=== PATIENT | female | born 1935 | race Caucasian/White ===

== ENCOUNTER 2016-02-22 13:37 | Inpatient (IN) | payer OTHER ==
[~2016-02-22] VITALS: Ht 152.4 cm; Wt 58.0 kg
[~2016-02-22 13:37] MED LIST: ASPI81TA28 PO; CALC500C70 PO; CRG125 PO; GABA1CAP4 PO; IPRA1AER2 INH; IPRASOL4 INH; ISOS-11 PO; LOVA40TA3 PO; LSX40 PO; PROB1TAB16 PO; PRT/40 PO; VALS-56 PO
--- NOTE | 2016-02-22 14:39 | DIAGNOSTIC IMAGING REPORT ---
CT SCAN OF THE BRAIN WITHOUT IV CONTRAST CLINICAL HISTORY: Syncope. COMPARISON STUDY: CT of the brain dated 11/20/2014. TECHNIQUE: Unenhanced axial CT scan of the brain is performed from the vertex to the skull base. The skull base was scanned twice due to motion artifact. CT DOSE: 1294.76 mGycm FINDINGS: Brain parenchyma: There are age-related involutional changes noting moderate subcortical and periventricular microangiopathic change. Left cerebellar encephalomalacia is unchanged and consistent with a remote insult. There is no hemorrhage, mass effect, or evidence of acute territorial ischemia by CT criteria. Colvin-white matter is preserved. Mineralization is noted in the basal ganglia. No extra-axial fluid collection is seen. Ventricles, sulci, cisterns: Prominent secondary to involutional change. Intracranial vasculature: There is atherosclerotic calcification of the cavernous carotid intervertebral arteries. Calvarium: The skeletal structures are osteopenic. No depressed calvarial fracture is seen. A right parietal silvano hole is noted. Sinuses and mastoids: The visualized paranasal sinuses are clear. The mastoid air cells are well pneumatized. Orbits: The bony orbits are grossly intact. There are bilateral ocular lens implants. IMPRESSION: Senescent and chronic changes as above. There is no hemorrhage, mass effect, or evidence of acute territorial ischemia by CT criteria. Electronically signed by: Christos Ochoa M.D. 02/22/2016 2:37 PM Dictated Date/Time: 02/22/2016 2:34 PM
[2016-02-22] MEDS ORDERED: GABA1CAP5 PO (14:44)
[2016-02-22] MEDS ORDERED: CALC600T PO (14:44)
[2016-02-22] MEDS ORDERED: PRED10TA PO (14:45)
--- NOTE | 2016-02-22 15:09 | DIAGNOSTIC IMAGING REPORT ---
CHEST 2 VIEWS ROUTINE CLINICAL HISTORY: Syncope, fatigue. COMPARISON STUDY: 06/03/2015 FINDINGS: There are postsurgical changes of a midline sternotomy and valvular replacement. There is a left subclavian dual-chamber central venous pacemaker present. There is no failure. There is no focal pulmonary consolidation. Slight prominence of markings the left lung base, likely are secondary to either atelectasis or a fat pad.[ IMPRESSION: No active disease in the chest. Electronically signed by: Lawson Troncoso M.D. 02/22/2016 3:08 PM Dictated Date/Time: 02/22/2016 3:07 PM
[2016-02-22 15:19] LABS: BASO % 0.1 %; BASO ABS # 0.01 K/uL (0-0.2); COMPLETE YES; EOS % 0.1 %; HEMATOCRIT 42.5 % (37-47); LYMPH % 16.5 %; LYMPH ABS # 2.39 K/uL (1.2-3.4); MEAN CELL VOLUME 84.5 fL (80-100); MEAN CORPUSCULAR HEMOGLOBIN 27.8 pg (25-34); MEAN CORPUSCULAR HGB CONC 32.9 g/dl (32-36); MEAN PLATELET VOLUME 11.1 fL (7.4-10.4); MONO % 2.9 %; NEUT % 79.4 %; PLATELET COUNT 206 K/uL (130-400); RED BLOOD COUNT 5.03 M/uL (4.2-5.4); WHITE BLOOD COUNT 14.49 K/uL (4.8-10.8)
--- NOTE | 2016-02-22 15:20 | EMERGENCY ROOM VISIT NOTE ---
History Report prepared by Chaim: Shelli Olson Under the Supervision of: Dr. Ilan Zhang M.D. First contact with patient: 13:54 Chief Complaint: NEURO SYMPTOMS Stated Complaint: SYNCOPE Nursing Triage Summary: patient to ed via ALS from home for "unresponsive episode" per family. Patient states, "I was going upstairs to go to the bathroom after lunch, and then I was going back downstairs, next thing I know I was waking up in my stair chair, with my family all around me telling me what to do." Patient AAO at time of triage, denies complaints states "oh, I just fell asleep". Patient has left sided weakness from previous CVA "several years ago. 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 Currently, the patient denies being in any discomfort, and she denies complaints other than feeling tired at this time. The patient is unsure of the exact events leading up to the episode today as she does not recall, but per nursing notes, family reports that the patient had passed out while in her stair chair lift just prior to arrival. Patient did not fall out of her chair or suffer injuries secondary to the episode. The patient mentions that she was recently placed on antibiotics as she was diagnosed with pneumonia last week, and though she feels improved from initial onset, she still feels tired. She does note intermittent chills, but she denies fevers or having increased weakness above baseline. She also denies sore throat , worsening cough, chest pain, abdominal pain, nausea, vomiting, diarrhea, urinary symptoms or other acute complaints. 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 Review of Systems All systems have been listed, reviewed, and are negative other than those previously mentioned. Please see Additional Medical History Sheet. Past Medical & Surgical Medical Problems: (1) AORTOCORONARY BYPASS (2) ATRIAL FIBRILLATION (3) CHRONIC KIDNEY DISEASE, STAGE III (MODERATE) (4) CHRONIC SYSTOLIC HRT FAILURE (5) CORON ATHEROSCLER NOS TYPE VESSEL, IGIUGIG OR GRAFT (6) CVA (7) Implantation of cardiac pacemaker (8) Lower GI bleed (9) PNEUMONIA, ORGANISM NOS (10) Seizure (11) Subdural hematoma Family History Heart disease Social History Smoking Status: Never Smoker Alcohol Use: none Drug Use: none Marital Status: Housing Status: lives with family Occupation Status: retired Current/Historical Medications Scheduled Aspirin (Aspirin Ec), 81 MG PO DAILY Calcium Carbonate (Calcium 600), 1 TAB PO BID Carvedilol (Carvedilol), 12.5 MG PO BID Furosemide (Furosemide), 40 MG PO DAILY Gabapentin (Neurontin), 400 MG PO TID Isosorbide Mononitrate (Isosorbide Mononitrate ER), 30 MG PO DAILY Lovastatin (Mevacor), 40 MG PO DAILY Pantoprazole (Pantoprazole Sodium), 40 MG PO DAILY Prednisone (Prednisone), 10 MG PO DAILY Valsartan (Valsartan), 40 MG PO DAILY Scheduled PRN Ipratropium-Albuterol (Combivent Respimat), 1 PUFF INH for SOB/Wheezing Ipratropium-Albuterol (Duoneb), 1 TREATMENT INH Q4H PRN for SOB/Wheezing Allergies Coded Allergies: Cephalosporins (Verified Allergy, Severe, TONGUE SWELLING WITH KEFLEX, 02/21) Butalbital (Verified Allergy, Intermediate, SHORTNESS OF BREATH, 02/22/16) Levetiracetam (Verified Allergy, Mild, RASH, 02/22/16) Penicillins (Verified Allergy, Unknown, HIVES, SOB, 02/22/16) Sulfa Antibiotics (Verified Allergy, Unknown, "SULFA DRUGS" - UNKNOWN, 02/21) Tamsulosin (Verified Allergy, Unknown, SHORTNESS OF BREATH, 02/22/16) Physical Exam Vital Signs Date Time Temp Pulse Resp B/P Pulse Ox O2 Delivery O2 Flow Rate FiO2 02/22/16 17:16 63 127/65 65 117/76 66 83/43 02/22/16 15:56 62 20 122/62 93 Room Air 02/22/16 13:45 72 02/22/16 13:41 36.6 67 18 142/86 94 Room Air Physical Exam GENERAL: Patient awake, alert, oriented x 3. Patient follows commands. Patient does not appear toxic. Patient is adequately hydrated and well- nourished. SKIN: No erythema, pallor, cyanosis or rash HEENT: Normal head, pupils equal, reactive to light and accommodation. Ears normal. Oral cavity and posterior pharynx appear normal. Neck: Without adenopathy, no neck vein distention. LUNGS: Clear to auscultation. No wheezes, no rales, no rhonchi. HEART: Pace maker left upper chest. Midline sternotomy scar. No murmurs. No gallops. No rubs ABDOMEN: Oblique RUQ scar. No masses, no rebound, no hepatomegaly or splenomegaly. EXTREMITIES: No signs of trauma. No pedal or pretibial edema. No calf or thigh tenderness. NEUROLOGIC: Cranial nerves II-XII within normal limits. No gross motor sensory function deficits. Medical Decision & Procedures ER Provider Diagnostic Interpretation: X ray results are stated below per my interpretation and the radiologist's interpretation. CT results are interpretations by the radiologist and per my review. CHEST 2 VIEWS ROUTINE CLINICAL HISTORY: Syncope, fatigue. COMPARISON STUDY: 06/03/2015 FINDINGS: There are postsurgical changes of a midline sternotomy and valvular replacement. There is a left subclavian dual-chamber central venous pacemaker present. There is no failure. There is no focal pulmonary consolidation. Slight prominence of markings the left lung base, likely are secondary to either atelectasis or a fat pad.[ IMPRESSION: No active disease in the chest. Electronically signed by: Lawson Troncoso M.D. 02/22/2016 3:08 PM Dictated Date/Time: 02/22/2016 3:[address] SCAN OF THE BRAIN WITHOUT IV CONTRAST CLINICAL HISTORY: Syncope. COMPARISON STUDY: CT of the brain dated 11/20/2014. TECHNIQUE: Unenhanced axial CT scan of the brain is performed from the vertex to the skull base. The skull base was scanned twice due to motion artifact. CT DOSE: 1294.76 mGycm FINDINGS: Brain parenchyma: There are age-related involutional changes noting moderate subcortical and periventricular microangiopathic change. Left cerebellar encephalomalacia is unchanged and consistent with a remote insult. There is no hemorrhage, mass effect, or evidence of acute territorial ischemia by CT criteria. Colvin-white matter is preserved. Mineralization is noted in the basal ganglia. No extra-axial fluid collection is seen. Ventricles, sulci, cisterns: Prominent secondary to involutional change. Intracranial vasculature: There is atherosclerotic calcification of the cavernous carotid intervertebral arteries. Calvarium: The skeletal structures are osteopenic. No depressed calvarial fracture is seen. A right parietal silvano hole is noted. Sinuses and mastoids: The visualized paranasal sinuses are clear. The mastoid air cells are well pneumatized. Orbits: The bony orbits are grossly intact. There are bilateral ocular lens implants. IMPRESSION: Senescent and chronic changes as above. There is no hemorrhage, mass effect, or evidence of acute territorial ischemia by CT criteria. Electronically signed by: Christos Ochoa M.D. 02/22/2016 2:37 PM Dictated Date/Time: 02/22/2016 2:34 PM Laboratory Results 02/22/16 15:00 Red Blood Count 5.03, Mean Corpuscular Volume 84.5, Mean Corpuscular Hemoglobin 27.8, Mean Corpuscular Hemoglobin Concent 32.9, Mean Platelet Volume 11.1, Neutrophils (%) (Auto) 79.4, Lymphocytes (%) (Auto) 16.5, Monocytes (%) (Auto) 2.9, Eosinophils (%) (Auto) 0.1, Basophils (%) (Auto) 0.1, Neutrophils # (Auto) 11.52, Lymphocytes # (Auto) 2.39, Monocytes # (Auto) 0.42, Eosinophils # (Auto) 0.01, Basophils # (Auto) 0.01 02/22/16 15:00 Test 02/22/16 15:00 White Blood Count 14.49 K/uL (4.8-10.8) Red Blood Count 5.03 M/uL (4.2-5.4) Hemoglobin 14.0 g/dL (12.0-16.0) Hematocrit 42.5 % (37-47) Mean Corpuscular Volume 84.5 fL (80-100) Mean Corpuscular Hemoglobin 27.8 pg (25-34) Mean Corpuscular Hemoglobin Concent 32.9 g/dl (32-36) Platelet Count 206 K/uL (130-400) Mean Platelet Volume 11.1 fL (7.4-10.4) Neutrophils (%) (Auto) 79.4 % Lymphocytes (%) (Auto) 16.5 % Monocytes (%) (Auto) 2.9 % Eosinophils (%) (Auto) 0.1 % Basophils (%) (Auto) 0.1 % Neutrophils # (Auto) 11.52 K/uL (1.4-6.5) Lymphocytes # (Auto) 2.39 K/uL (1.2-3.4) Monocytes # (Auto) 0.42 K/uL (0.11-0.59) Eosinophils # (Auto) 0.01 K/uL (0-0.5) Basophils # (Auto) 0.01 K/uL (0-0.2) RDW Standard Deviation 47.4 fL (36.4-46.3) RDW Coefficient of Variation 15.5 % (11.5-14.5) Immature Granulocyte % (Auto) 1.0 % Immature Granulocyte # (Auto) 0.14 K/uL (0.00-0.02) Anion Gap 11.0 mmol/L (3-11) Est Creatinine Clear Calc Drug Dose 20.3 ml/min Estimated GFR () 32.0 Estimated GFR (Non- 27.6 BUN/Creatinine Ratio 24.2 (10-20) Calcium Level 8.9 mg/dl (8.5-10.1) Troponin I 0.037 ng/ml (0-0.045) Laboratory results as stated above per my review. ECG Indication: syncope Rate (beats per minute): 62 Rhythm: other (atrial paced) Findings: nonspecific-ST abn, no ectopy ED Course 1355: Past medical records reviewed. The patient was evaluated in room C1. A complete history and physical examination was performed. 1445: Patient was reevaluated at this time and was doing well. The results of her CT are pending. 1640: Upon reevaluation, patient appeared to be resting comfortably. I updated her on the results of her radiology reports and lab tests. Orthostatic vital signs will be taken, and she will be put through an ambulatory trial. 1720: Patient was reevaluated at this time. She was able to walk a short distance on her own, however, her orthostatic vital signs tested positive. Family was now in the room and I updated them on the results of her radiology reports and lab tests. The hospitalist will be contacted. 173: NSS 1,000 ml @ 300 mls/hr IV was ordered. 1744: After discussion with Dr. Shea, the patient will continue to be evaluated by the [facility] [place] [place] for further management. Patient verbalized her understanding and agreement with this treatment plan. Medical Decision Nurses notes reviewed. Medical history sheet reviewed. Differential diagnosis includes but is not limited to: CVA, TIA, cardiac arrhythmia, pneumonia, metabolic disorder, and anemia. Patient a recent viral illness and family is concerned that she is dehydrated. She has been falling at home. She apparently fell asleep on her stair chair at home. The patient has no urinary symptoms. She is not coughing. She denies current fever. Multiple labs, EKG and imaging were obtained. Please see above. The patient's white count is elevated along with her hemoglobin and hematocrit which may be related to her dehydration. The rest of the patient's labs are not remarkable but the patient was orthostatic. She is also unsteady on her feet. I discussed at length with the patient and family members. I believe the patient should be stay in the hospital until she is better hydrated. She was given IV fluids here. Most likely she became dehydrated during her viral illness which resulted in her falls and unsteadiness. Consults Time Called: 1724 Consulting Physician: Dr. Shea - [facility] [place] [place] Returned Call: [phone] Discussed the patient's case. She will continue to be evaluated by the [facility] [place] [place] hospitalist for further management. Impression Primary Impression: Orthostatic hypotension Additional Impression: Dehydration Scribe Attestation The scribe's documentation has been prepared under my direction and personally reviewed by me in its entirety. I confirm that the note above accurately reflects all work, treatment, procedures, and medical decision making performed by me. Departure Information Dispostion Being Evaluated By Hospitalist ([facility] [place] [place]) Referrals Crystal Mcguire C.R.N.P (PCP)
[2016-02-22 15:37] LABS: BUN/CREATININE RATIO 24.2 (10-20); CALCIUM 8.9 mg/dl (8.5-10.1); CREATININE 1.7 mg/dl (0.60-1.20); POTASSIUM 3.7 mmol/L (3.5-5.1)
[2016-02-22] MEDS ORDERED: SODIUM CHLORIDE 0.9% 1000ML 1,000 ML IV SCH (17:30)
[2016-02-22] MEDS ORDERED: ONDANSETRON INJ 2 MG/ML 2 ML VIAL IV PRN (18:30)
[2016-02-22] MEDS ORDERED: ACETAMINOPHEN 325 MG TAB PO PRN (18:30)
[2016-02-22 19:10] VITALS: BP_SYST 109; BP_SYST 99; BP_DIAS 64; BP_DIAS 68; PULSE 61; TEMP 36.5; O2SAT 94
[2016-02-22 19:17] LABS: INR 1.1 (0.9-1.1); PARTIAL THROMBOPLASTIN RATIO 0.9; PROTHROMBIN TIME (PATIENT) 11.6 SECONDS (9.0-12.0)
--- NOTE | 2016-02-22 19:43 | History and Physical ---
History & Physical Date & Time of Service: Feb 22, 2016 at 19:26 Chief Complaint: Syncope Primary Care Physician: Crystal Mcguire C.R.N.P History of Present Illness Source: patient, family Pt is an 80 year old female arriving by ambulance from home who presents to the ER for evaluation after suffering a possible syncopal episode just prior to arrival. Currently, the patient denies being in any discomfort, and she denies complaints other than feeling tired at this time. The patient is unsure of the exact events leading up to the episode today as she does not recall, but per nursing notes, family reports that the patient had passed out while in her stair chair lift just prior to arrival. Patient did not fall out of her chair or suffer injuries secondary to the episode. The patient mentions that she was recently placed on doxycycline in which she has finished a course as she was diagnosed with pneumonia last week, and though she feels improved from initial onset, she still feels tired. She does note intermittent chills, but she denies fevers or having increased weakness above baseline. She also denies sore throat, worsening cough, chest pain, abdominal pain, nausea , vomiting, diarrhea, urinary symptoms or other acute complaints. Past Medical/Surgical History Medical Problems: (1) AORTOCORONARY BYPASS Status: Resolved (2) ATRIAL FIBRILLATION Status: Chronic (3) CHRONIC KIDNEY DISEASE, STAGE III (MODERATE) Status: Chronic (4) CHRONIC SYSTOLIC HRT FAILURE Status: Chronic (5) CORON ATHEROSCLER NOS TYPE VESSEL, KLAMATH OR GRAFT Status: Chronic (6) CVA Status: Chronic (7) Implantation of cardiac pacemaker Status: Chronic (8) PNEUMONIA, ORGANISM NOS Status: Chronic (9) Seizure Status: Chronic (10) Subdural hematoma Status: Chronic Family History Heart disease Social History Smoking Status: Never Smoker Drug Use: none Marital Status: Housing status: lives alone Occupational Status: retired Immunizations History of Influenza Vaccine: Yes Influenza Vaccine Date: Nov 08, 2011 History of Tetanus Vaccine?: No History of Pneumococcal: No Pneumococcal Date: Jan 01, 2009 History of Hepatitis B Vaccine: No Multi-Drug Resistant Organisms History of MDRO: No Allergies Coded Allergies: Cephalosporins (Verified Allergy, Severe, TONGUE SWELLING WITH KEFLEX, 02/21) Penicillins (Verified Allergy, Severe, HIVES, SOB, 02/22/16) Tamsulosin (Verified Allergy, Severe, SHORTNESS OF BREATH, 02/22/16) Butalbital (Verified Allergy, Intermediate, SHORTNESS OF BREATH, 02/22/16) Levetiracetam (Verified Allergy, Intermediate, RASH, 02/22/16) Sulfa Antibiotics (Verified Allergy, Unknown, "SULFA DRUGS" - UNKNOWN, 02/21) Home Medications Scheduled Aspirin (Aspirin Ec), 81 MG PO DAILY Calcium Carbonate (Calcium 600), 1 TAB PO BID Carvedilol (Carvedilol), 12.5 MG PO BID Furosemide (Furosemide), 40 MG PO DAILY Gabapentin (Neurontin), 400 MG PO TID Isosorbide Mononitrate (Isosorbide Mononitrate ER), 30 MG PO DAILY Lovastatin (Mevacor), 40 MG PO DAILY Pantoprazole (Pantoprazole Sodium), 40 MG PO DAILY Prednisone (Prednisone), 10 MG PO DAILY Valsartan (Valsartan), 40 MG PO DAILY Scheduled PRN Ipratropium-Albuterol (Combivent Respimat), 1 PUFF INH for SOB/Wheezing Ipratropium-Albuterol (Duoneb), 1 TREATMENT INH Q4H PRN for SOB/Wheezing Review of Systems Constitutional: + fatigue, + weakness, No chills, No fever Respiratory: No cough, No dyspnea on exertion, No shortness of breath, No sputum Cardiovascular: No chest pain, No orthopnea Abdomen: No diarrhea, No nausea, No pain, No vomiting Musculoskeletal: No joint pain, No muscle pain Genitourinary - Female: No dysuria, No urinary frequency, No urinary urgency Psychiatric: No anhedonism, No depression symptoms Physical Exam Vital Signs Date Time Temp Pulse Resp B/P Pulse Ox O2 Delivery O2 Flow Rate FiO2 02/22/16 17:57 62 02/22/16 17:55 62 20 110/57 95 Room Air 02/22/16 17:16 63 127/65 65 117/76 66 83/43 02/22/16 15:56 62 20 122/62 93 Room Air 02/22/16 13:45 72 02/22/16 13:41 36.6 67 18 142/86 94 Room Air General Appearance: WD/WN, no apparent distress Neck: supple, no adenopathy Respiratory/Chest: chest non-tender, lungs clear, normal breath sounds Cardiovascular: no edema, no gallop Abdomen/GI: non tender, soft Neurologic/Psych: alert, oriented x 3 Diagnostics Laboratory Results Results Past 24 Hours Test 02/22/16 15:00 Range/Units White Blood Count 14.49 4.8-10.8 K/uL Red Blood Count 5.03 4.2-5.4 M/uL Hemoglobin 14.0 12.0-16.0 g/dL Hematocrit 42.5 37-47 % Mean Corpuscular Volume 84.5 80-100 fL Mean Corpuscular Hemoglobin 27.8 25-34 pg Mean Corpuscular Hemoglobin Concent 32.9 32-36 g/dl Platelet Count 206 130-400 K/uL Mean Platelet Volume 11.1 7.4-10.4 fL Neutrophils (%) (Auto) 79.4 % Lymphocytes (%) (Auto) 16.5 % Monocytes (%) (Auto) 2.9 % Eosinophils (%) (Auto) 0.1 % Basophils (%) (Auto) 0.1 % Neutrophils # (Auto) 11.52 1.4-6.5 K/uL Lymphocytes # (Auto) 2.39 1.2-3.4 K/uL Monocytes # (Auto) 0.42 0.11-0.59 K/uL Eosinophils # (Auto) 0.01 0-0.5 K/uL Basophils # (Auto) 0.01 0-0.2 K/uL RDW Standard Deviation 47.4 36.4-46.3 fL RDW Coefficient of Variation 15.5 11.5-14.5 % Immature Granulocyte % (Auto) 1.0 % Immature Granulocyte # (Auto) 0.14 0.00-0.02 K/uL Prothrombin Time 11.6 9.0-12.0 SECONDS Prothromb Time International Ratio 1.1 0.9-1.1 Activated Partial Thromboplast Time 24.6 21.0-31.0 SECONDS Partial Thromboplastin Ratio 0.9 Sodium Level 143 136-145 mmol/L Potassium Level 3.7 3.5-5.1 mmol/L Chloride Level 101 98-107 mmol/L Carbon Dioxide Level 31 21-32 mmol/L Anion Gap 11.0 3-11 mmol/L Blood Urea Nitrogen 41 7-18 mg/dl Creatinine 1.70 0.60-1.20 mg/dl Est Creatinine Clear Calc Drug Dose 20.3 ml/min Estimated GFR () 32.0 Estimated GFR (Non- 27.6 BUN/Creatinine Ratio 24.2 10-20 Random Glucose 168 70-99 mg/dl Calcium Level 8.9 8.5-10.1 mg/dl Troponin I 0.037 0-0.045 ng/ml Impression Assessment and Plan 80 yo female presents with syncopal episode prior to arrival. Pt reports finishing a 7 day course of doxy for a suspected PNA Syncope likely secondary to orthostatic hypotension. Pt recently finished a 7 day course of doxy for recent PNA so likely fatigue and malaise from recent illness. Orthostatics pos in ER. Will recheck after appropriate hydration as likely dehydration is the main culprit. -Admit to medical floor -Obtain PT/OT -Will recheck orthostatics -Obtain ECHO due to cardiac hx -Pacemaker interrogation -EKG paced rhythm -CT had neg for any acute events Hypertension -Continue carvedilol, isosorbide and valsartan History of systolic congestive heart failure-no signs of volume overload - Cont BB, statin, ARB, ASA History of hyperlipidemia -Continue lovastatin History of GERD -Continue pantoprazole Acute kidney failure on Chronic kidney disease stage 3 -Gentle IV hydration and monitor PRP Coronary artery disease status post CABG -EKG paced rhythm, trend trops Hx CVA, subdural bleed DVT prophylaxis with heparin CODE STATUS -Level V DO NOT RESUSCITATE VTE Prophylaxis VTE Risk Assessment Done? Y/N: Yes Risk Level: Moderate
[2016-02-22] MEDS: SODIUM CHLORIDE 0.9% 1000ML 1,000 ML IV SCH (20:35)
[2016-02-22] MEDS: GABAPENTIN 400 MG CAP PO SCH (20:36)
[2016-02-22] MEDS: CARVEDILOL 12.5 MG TAB PO SCH (20:41)
[2016-02-22] MEDS: HEPARIN SOD 5000 UNIT/0.5 ML CARP SQ SCH (20:57)
[2016-02-22 21:51] LABS: URINE APPEARANCE CLEAR (CLEAR); URINE BILIRUBIN NEG (NEG); URINE COLOR YELLOW; URINE NITRITE NEG (NEG); URINE PH 6.5 (4.5-7.5); UROBILINOGEN NEG (NEG); ZZUR CULT IF INDIC CLEAN CATCH NO
[2016-02-22 21:55] LABS: MANUAL MICROSCOPIC REQUIRED? NO; REVIEW REQ? NO
[2016-02-22 23:12] VITALS: BP 128/71; PULSE 64; TEMP 36.9; O2SAT 94
[2016-02-23] VITALS (7 sets, daily range): BP systolic 116–203; BP diastolic 60–83; PULSE 62–69; TEMP 36.7–36.9; O2SAT 95–97; Ht 152.4 cm; Wt 58.0 kg
[2016-02-23] MEDS: HEPARIN SOD 5000 UNIT/0.5 ML CARP SQ SCH ×3 (05:03→20:39)
[2016-02-23] MEDS: SODIUM CHLORIDE 0.9% 1000ML 1,000 ML IV SCH (05:04)
[2016-02-23 07:06] LABS: BUN/CREATININE RATIO 29.5 (10-20); CALCIUM 8.5 mg/dl (8.5-10.1); CREATININE 1.3 mg/dl (0.60-1.20); POTASSIUM 3.4 mmol/L (3.5-5.1)
[2016-02-23] MEDS: CARVEDILOL 12.5 MG TAB PO SCH (07:10)
[2016-02-23] MEDS: GABAPENTIN 400 MG CAP PO SCH ×3 (07:39→20:17)
[2016-02-23] MEDS: ASPIRIN 81 MG ECTAB PO SCH (07:39)
[2016-02-23] MEDS: LOVASTATIN 20 MG TAB PO SCH (07:39)
[2016-02-23] MEDS: PANTOprazole SOD 40 MG TAB PO SCH (07:39)
[2016-02-23] MEDS: ISOSORBIDE MONONITRATE 30 MG TABCR PO SCH (07:39)
[2016-02-23] MEDS ORDERED: INFLUENZA ADMINISTRATION CHARGE ONE (08:00)
[2016-02-23] MEDS ORDERED: POTASSIUM CHLORIDE 20 MEQ TABCR PO ONE (08:00)
[2016-02-23] MEDS ORDERED: INFLUENZA VIRUS QUAD VACCINE 0.5 ML SYR IM. ONE (08:00)
[2016-02-23] MEDS ORDERED: VALSARTAN 80 MG TAB PO SCH (09:00)
--- NOTE | 2016-02-23 11:55 | ECHOCARDIOGRAM REPORT ---
*NOTICE TO RECEIVING [employer] This information is strictly Confidential and protected under [place] law. [place] law prohibits you from making any further disclosure of this information unless further disclosure is expressly permitted by the written consent of the person to whom it pertains or is authorized by law. A general authorization for the release of medical or other information is not sufficient for this purpose. Hospital accepts no responsibility if the information is made available to any other person, INCLUDING THE PATIENT. Interpretation Summary * Name: TIM GATES Study Date: 02/23/2016 08:34 AM BP: 190/79 mmHg * Patient Location: .[facility]\S\N285\S\2 HR: 62 * : 1935 (M/d/yyyy) Gender: Female Height: 60 in * Age: 80 yrs Ethnicity: [place] Weight: 127 lb * Ordering Physician: Harjinder Shea * Referring Physician: No Doctor, Assigned * Performed By: Almaz Kasper RCS * * Reason For Study: SYNCOPE * BSA: 1.5 m2 * -- Conclusions -- * Left ventricular systolic function is normal. * No regional wall motion abnormalities noted. * Ejection Fraction = 55-60%. * There is mild concentric left ventricular hypertrophy. * Diastolic dysfunction, Grade II (pseudonormalization pattern). * Aortic valve sclerosis bordering on mild stenosis. * Abnormal mitral valve. * There is mild mitral regurgitation. * There is mild tricuspid regurgitation. Procedure Details * A complete two-dimensional transthoracic echocardiogram was performed (2D, M-mode, Doppler and color flow Doppler). Left Ventricle * The left ventricle is normal in size. * There is mild concentric left ventricular hypertrophy. * Ejection Fraction = 55-60%. * Left ventricular systolic function is normal. * No regional wall motion abnormalities noted. Right Ventricle * The right ventricle is normal in size and function. Atria * The left atrium is mildly dilated. * Right atrial size is normal. * No ASD detected; PFO is not assessed. Mitral Valve * The posterior mitral leaflet is thickened and fixed consistent with prior mitral repair surgery. * The anterior mitral leaflet is thickened, but opens well. * There is mild mitral stenosis. * There is mild mitral regurgitation. Tricuspid Valve * The tricuspid valve is not well visualized, but is grossly normal. * There is no tricuspid stenosis. * There is mild tricuspid regurgitation. * Right ventricular systolic pressure is elevated at 30-40mmHg. Aortic Valve * The aortic valve is trileaflet. * Aortic valve sclerosis bordering on mild stenosis. * Trace aortic regurgitation. Pulmonic Valve * The pulmonary valve is not well seen, but the Doppler examination is normal without significant regurgitation or stenosis. * There is no significant pulmonary regurgitation. Great Vessels * The aortic root is normal size. Pericardium/Pleural * There is no pericardial effusion. Great Vessels * Normal inferior vena cava size and collapsability with sniff indicates a normal right atrial pressure of 3 mmHg Left Ventricular Diastolic Function * Diastolic dysfunction, Grade II (pseudonormalization pattern). MMode 2D Measurements and Calculations IVSd 1.8 cm IVSs 2.1 cm LVIDd 3.9 cm LVIDs 2.3 cm LVPWd 1.2 cm LVPWs 1.5 cm IVS/LVPW 1.5 FS 41.6 % EDV(Teich) 66.3 ml ESV(Teich) 17.8 ml EF(Teich) 73.2 % EDV(cubed) 59.8 ml ESV(cubed) 11.9 ml EF(cubed) 80.1 % % IVS thick 11.2 % % LVPW thick 23.4 % LV mass(C)d 235.6 grams LV mass(C)dI 153.1 grams/m\S\2 LV mass(C)s 158.4 grams LV mass(C)sI 102.9 grams/m\S\2 SV(Teich) 48.6 ml SI(Teich) 31.6 ml/m\S\2 SV(cubed) 47.9 ml SI(cubed) 31.1 ml/m\S\2 Ao root diam 3.4 cm Ao root area 9.2 cm\S\2 ACS 1.6 cm LA dimension 3.0 cm LA/Ao 0.88 LVOT diam 2.0 cm LVOT area 3.0 cm\S\2 LVAd ap4 24.5 cm\S\2 LVLd ap4 6.6 cm EDV(MOD-sp4) 74.2 ml EDV(sp4-el) 76.4 ml LVAs ap4 14.4 cm\S\2 LVLs ap4 5.8 cm ESV(MOD-sp4) 31.5 ml ESV(sp4-el) 30.4 ml EF(MOD-sp4) 57.5 % EF(sp4-el) 60.2 % LVAd ap2 24.0 cm\S\2 LVLd ap2 7.0 cm EDV(MOD-sp2) 65.1 ml EDV(sp2-el) 70.1 ml LVAs ap2 13.6 cm\S\2 LVLs ap2 6.4 cm ESV(MOD-sp2) 25.7 ml ESV(sp2-el) 24.9 ml EF(MOD-sp2) 60.5 % EF(sp2-el) 64.5 % LVLd %diff 4.9 % EDV(MOD-bp) 70.9 ml LVLs %diff 8.8 % ESV(MOD-bp) 30.1 ml EF(MOD-bp) 57.6 % SV(MOD-sp4) 42.7 ml SI(MOD-sp4) 27.7 ml/m\S\2 SV(MOD-sp2) 39.4 ml SI(MOD-sp2) 25.6 ml/m\S\2 SV(MOD-bp) 40.8 ml SI(MOD-bp) 26.5 ml/m\S\2 SV(sp4-el) 46.0 ml SI(sp4-el) 29.9 ml/m\S\2 SV(sp2-el) 45.3 ml SI(sp2-el) 29.4 ml/m\S\2 Doppler Measurements and Calculations MV E max mirela 201.4 cm/sec MV A max mirela 119.4 cm/sec MV E/A 1.7 MV P1/2t max mirela 184.6 cm/sec MV P1/2t 175.3 msec MVA(P1/2t) 1.3 cm\S\2 MV dec slope 308.4 cm/sec\S\2 MV dec time 0.17 sec Ao V2 max 223.9 cm/sec Ao max PG 20.0 mmHg Ao max PG (full) 17.4 mmHg CONCHIS(V,A) 1.1 cm\S\2 COCNHIS(V,D) 1.1 cm\S\2 AI max mirela 345.8 cm/sec AI max PG 47.8 mmHg AI dec slope 127.0 cm/sec\S\2 AI P1/2t 797.3 msec LV V1 max PG 2.7 mmHg LV V1 max 81.4 cm/sec MR max mirela 550.8 cm/sec MR max PG 121.4 mmHg PA V2 max 95.6 cm/sec PA max PG 3.7 mmHg TR max mirela 277.2 cm/sec
--- NOTE | 2016-02-23 12:02 | Progress Note ---
Subjective Date of Service: Feb 23, 2016. (Sara Monaco PA-C) Subjective Pt evaluation today including: conversation w/ patient, conversation w/ family (son), physical exam, chart review, lab review, review of studies, review of inpatient medication list Patient seen and evaluated. No acute events overnight. Patient without further syncopal episodes. Orthostatic BPs positive x 2 attempts. Reports improvement in URI symptoms and PNA? which she recently finished Abx for. She states she feels better today and denies lightheadedness/dizziness, SOB, palpitations, or CP. (Sara Monaco PA-C) Problem List Medical Problems: (1) Dehydration Status: Acute (2) Orthostatic hypotension Status: Acute (3) Rectal bleeding Status: Acute (4) Weakness Status: Acute (Sara Monaco PA-C) Review of Systems Constitutional: No chills, No fever Respiratory: No cough, No shortness of breath Cardiac: No chest pain, No palpitations Abdomen: No nausea, No pain, No vomiting Female : No dysuria Neurologic: No vertigo Endo: No fatigue Skin: No rash (Sara Monaco PA-C) Medications Current Inpatient Medications Medications (Trade) Dose Ordered Sig/Channing Route Start Time Stop Time Status Last Admin Dose Admin Heparin Sodium (Porcine) (Heparin Sq 5000 Unit/0.5ml) 5,000 unit Q8H SQ 02/22/16 20:00 03/23/16 19:59 02/23/16 11:13 5,000 UNIT Acetaminophen (Tylenol Tab) 650 mg Q4H PRN PO 02/22/16 18:30 03/23/16 18:29 Ondansetron HCl (Zofran Inj) 4 mg Q6H PRN IV 02/22/16 18:30 03/23/16 18:29 Aspirin (Ecotrin Tab) 81 mg DAILY PO 02/23/16 09:00 03/24/16 08:59 02/23/16 07:39 81 MG Gabapentin (Neurontin Cap) 400 mg TID PO 02/22/16 21:00 03/23/16 20:59 02/23/16 07:39 400 MG Isosorbide Mononitrate (Imdur Ext Rel Tab) 30 mg DAILY PO 02/23/16 09:00 03/24/16 08:59 02/23/16 07:39 30 MG Lovastatin (Mevacor Tab) 40 mg DAILY PO 02/23/16 09:00 03/24/16 08:59 02/23/16 07:39 40 MG Pantoprazole Sodium (Protonix Tab) 40 mg DAILY PO 02/23/16 09:00 03/24/16 08:59 02/23/16 07:39 40 MG Carvedilol (Coreg Tab) 6.25 mg BID PO 02/23/16 21:00 03/24/16 20:59 (Sara Monaco PA-C) Objective Vital Signs Date Time Temp Pulse Resp B/P Pulse Ox O2 Delivery O2 Flow Rate FiO2 02/23/16 07:30 36.9 64 18 190/79 95 Room Air 02/23/16 07:06 187/80 185/82 02/23/16 06:43 64 203/83 65 186/69 69 125/60 02/23/16 02:02 Room Air 02/23/16 00:00 Room Air 02/22/16 23:12 36.9 64 18 128/71 94 Room Air 02/22/16 19:10 36.5 61 16 109/68 94 Room Air 99/64 02/22/16 17:57 62 02/22/16 17:55 62 20 110/57 95 Room Air 02/22/16 17:16 63 127/65 65 117/76 66 83/43 02/22/16 15:56 62 20 122/62 93 Room Air 02/22/16 13:45 72 02/22/16 13:41 36.6 67 18 142/86 94 Room Air (Sara Monaco PA-C) Physical Exam General Appearance: WD/WN, no apparent distress Eyes: sclerae normal ENT: hearing grossly normal Neck: supple, no JVD, trachea midline Respiratory/Chest: lungs clear, no respiratory distress, no accessory muscle use, + decreased breath sounds (bases bilat) Cardiovascular: regular rate, rhythm, no gallop, no murmur Abdomen: normal bowel sounds, non tender, soft Extremities: no pedal edema Neurologic/Psychiatric: alert, oriented x 3 Skin: normal color, warm/dry (Sara Monaco PA-C) Laboratory Results Last 24 Hours Test 02/22/16 15:00 02/22/16 21:30 02/22/16 22:22 02/23/16 06:10 White Blood Count 14.49 K/uL Red Blood Count 5.03 M/uL Hemoglobin 14.0 g/dL Hematocrit 42.5 % Mean Corpuscular Volume 84.5 fL Mean Corpuscular Hemoglobin 27.8 pg Mean Corpuscular Hemoglobin Concent 32.9 g/dl Platelet Count 206 K/uL Mean Platelet Volume 11.1 fL Neutrophils (%) (Auto) 79.4 % Lymphocytes (%) (Auto) 16.5 % Monocytes (%) (Auto) 2.9 % Eosinophils (%) (Auto) 0.1 % Basophils (%) (Auto) 0.1 % Neutrophils # (Auto) 11.52 K/uL Lymphocytes # (Auto) 2.39 K/uL Monocytes # (Auto) 0.42 K/uL Eosinophils # (Auto) 0.01 K/uL Basophils # (Auto) 0.01 K/uL RDW Standard Deviation 47.4 fL RDW Coefficient of Variation 15.5 % Immature Granulocyte % (Auto) 1.0 % Immature Granulocyte # (Auto) 0.14 K/uL Prothrombin Time 11.6 SECONDS Prothromb Time International Ratio 1.1 Activated Partial Thromboplast Time 24.6 SECONDS Partial Thromboplastin Ratio 0.9 Sodium Level 143 mmol/L 144 mmol/L Potassium Level 3.7 mmol/L 3.4 mmol/L Chloride Level 101 mmol/L 105 mmol/L Carbon Dioxide Level 31 mmol/L 30 mmol/L Anion Gap 11.0 mmol/L 9.0 mmol/L Blood Urea Nitrogen 41 mg/dl 38 mg/dl Creatinine 1.70 mg/dl 1.30 mg/dl Est Creatinine Clear Calc Drug Dose 20.3 ml/min 26.6 ml/min Estimated GFR () 32.0 44.2 Estimated GFR (Non- 27.6 38.2 BUN/Creatinine Ratio 24.2 29.5 Random Glucose 168 mg/dl 134 mg/dl Calcium Level 8.9 mg/dl 8.5 mg/dl Troponin I 0.037 ng/ml 0.027 ng/ml 0.029 ng/ml Urine Color YELLOW Urine Appearance CLEAR Urine pH 6.5 Urine Specific [place] 1.010 Urine Protein NEG Urine Glucose (UA) NEG Urine Ketones NEG Urine Occult Blood NEG Urine Nitrite NEG Urine Bilirubin NEG Urine Urobilinogen NEG Urine Leukocyte Esterase NEG (Sara Monaco PA-C) Assessment and Plan 80 yo female presents with syncopal episode prior to arrival. Pt reports finishing a 7 day course of doxy for a suspected PNA Syncope likely 2/2 Orthostatic Hypotension: Dehydration? - Assessment - Pt recently finished a 7 day course of doxy for recent PNA so likely fatigue and malaise from recent illness. -- Orthostatics (02/21) - 127/65; 186/69; 125/60 - positive -- Orthostatic (02/22) - with hydration - 203/83; 186/69; 125/60 - positive -- Head CT - image and report reviewed - no acute intracranial findings - Echo - report reviewed - EF 55-60% with diastolic dysfunction grade II ( pseudonormalization pattern) - Pacemaker interrogation - PT/OT - Will hold Valsartan and reduce Coreg to 6.25 mg BID - may need to allow for mild hypertension in setting of drastic decrease in BPs with standing Hypertension: - Coreg 6.25 mg BID - Imdur 30 mg daily - Hold Valsartan 40 mg daily Diastolic CHF S/P Pacemaker: - medications as above HLD: - Lovastatin 40 mg daily GERD: - Pantoprazole 40 mg daily Acute Kidney Failure Superimposed on Chronic Kidney Disease Stage III: RESOLVED - Gentle hydration - Cr from 1.7 to 1.3 which appears baseline - Continue monitoring CAD S/P CABG: - Trops trended - 0.037, 0.027, 0.029 CVA with Subdural Bleed: Noted DVT Prophylaxis: - Heparin 5000 units Q8H Code Status: - DO NOT RESUSCITATE Disposition: - Will monitor BP and obtain orthostatics in AM and monitor for symptoms - will await PT/OT evaluation - Due to medication adjustments will monitor today - possible D/C tomorrow - Patient does live at home alone with multiple family members close by - is normally ambulatory (Sara Monaco PA-C) PA Physician Supervision Note: I interviewed and examined the patient. Discussed with Sara Monaco PAC and agree with findings and plan as documented in the note. Any exceptions or clarifications are listed here: None This patient wants to go home, her son feels she may not be ready. vitals signs show significant drop in blood pressure with standing, with b mike heart rate to prevent compensation car is regular lungs are clear will hold and reduce meds to allow higher resting blood pressure, recheck orthostatics in am Documented By: Doyle Sung (Doyle Sung M.D.)
[2016-02-23] MEDS: CARVEDILOL 6.25 MG TAB PO SCH (20:17)
[2016-02-24] MEDS: HEPARIN SOD 5000 UNIT/0.5 ML CARP SQ SCH ×2 (06:03→11:26)
[2016-02-24 06:59] VITALS: BP 184/77; PULSE 59; TEMP 36.8; O2SAT 95
[2016-02-24 07:16] VITALS: BP_SYST 153; BP_SYST 175; BP_DIAS 72; BP_DIAS 76; PULSE 68; PULSE 70; TEMP 37.2; O2SAT 95
[2016-02-24] MEDS: ASPIRIN 81 MG ECTAB PO SCH (08:35)
[2016-02-24] MEDS: CARVEDILOL 6.25 MG TAB PO SCH (08:35)
[2016-02-24] MEDS: GABAPENTIN 400 MG CAP PO SCH ×2 (08:35→12:57)
[2016-02-24] MEDS: PANTOprazole SOD 40 MG TAB PO SCH (08:35)
[2016-02-24] MEDS: ISOSORBIDE MONONITRATE 30 MG TABCR PO SCH (08:35)
[2016-02-24] MEDS: LOVASTATIN 20 MG TAB PO SCH (08:35)
[2016-02-24 08:59] LABS: BUN/CREATININE RATIO 26.5 (10-20); CALCIUM 9.4 mg/dl (8.5-10.1); CREATININE 1.2 mg/dl (0.60-1.20); POTASSIUM 4.3 mmol/L (3.5-5.1)
[2016-02-24] MEDS ORDERED: CRG625 PO (10:54)
--- NOTE | 2016-02-24 11:07 | Discharge Instructions ---
Discharge Instructions Admission Reason for Admission: Dehydration, Orthostatic Hypotenstion Discharge Discharge Diagnosis / Problem: Orthostatic Hypotension with Syncope Discharge Goals Goal(s): Increase independence, Improve disease control, Learn about illness Activity Recommendations Activity Limitations: as noted below Lifting Limitations: gradually increase as tolerated Exercise/Sports Limitations: gradually increase as tolerated . Instructions / Follow-Up Instructions / Follow-Up Syncope from Orthostatic Hypotension with Dehydration: - Your blood pressure has been monitored while at the hospital and when you stand your blood pressure drops a lot that can cause lightheadedness/dizziness and passing out. - This can occur with dehydration as well as from blood pressure medications. - We have adjusted your medications to help reduce your blood pressure dropping too low. - These are the changes -- CARVEDILOL 6.25 MG TO TAKE TWICE A DAY -- STOP VALSARTAN 40 MG DAILY -- STOP LASIX 40 MG DAILY - You will be set up with home health services to come in and monitor blood pressure - When you change positions make sure to do this slowly. When sitting give yourself a couple minutes before standing up. - PLEASE USE YOUR WALKER AT HOME. BE CAREFUL WITH SNOW AND ICY WEATHER. ALWAYS WEAR WELL FITTED SHOES THAT ARE SECURE ON YOUR FEET. High Blood Pressure and Heart Failure with Pacemaker: - Continue Carvedilol mentioned above and stop Valsartan and Lasix - Continue Imdur 30 mg daily - Monitor your weight daily in the mornings. Keep track of your weight and report to your family doctor if you gave 5 lbs over one day. Home Medications: - You may take your other home medications as prescribed. - If you have any questions about home medications please discuss with your family doctor. Follow-Up: - Home Health Services will be set up for you to help monitor blood pressure and your health at home. - Please see your family doctor in 1-2 weeks Current Hospital Diet Patient's current hospital diet: AHA Diet (Heart Healthy) Discharge Diet Recommended Diet: AHA Diet (Heart Healthy) Pending Studies Studies pending at discharge: no Medical Emergencies . Who to Call and When: Medical Emergencies: If at any time you feel your situation is an emergency, please call 911 immediately. . Non-Emergent Contact Non-Emergency issues call your: Primary Care Provider Call Non-Emergent contact if: you have a fever, you have any medication questions . . "Provider Documentation" section prepared by Sara Monaco. VTE Core Measure Inpt VTE Proph given/why not?: Unfractionated heparin ESTEFANY, T.ENavneet. Evelio, SCD 's
[2016-02-24 11:26] VITALS: BP 121/64; PULSE 62; TEMP 36.9; O2SAT 96
[2016-02-24 12:44] VITALS: BP 121/64; PULSE 62; TEMP 36.9; O2SAT 96
--- NOTE | 2016-02-24 15:47 | Discharge Summary ---
Discharge Summary Admission Date: Feb 22, 2016 at 18:24 Discharge Date: Feb 24, 2016 Discharge Disposition: Home with services Principal Diagnosis: Orthostatic Hypotension Immunizations: Have You Had Influenza Vaccine: Yes Influenza Vaccine Date: Nov 08, 2011 History of Tetanus Vaccine?: No History of Pneumococcal: No Pneumococcal Date: Jan 01, 2009 History of Hepatitis B Vaccine: No Consultations: 1. PT/OT (Sara Monaco, AMI) Medication Reconciliation New Medications: Carvedilol (Carvedilol) 6.25 Mg Tab 6.25 MG PO BID for 30 Days, #60 TAB Continued Medications: Aspirin (Aspirin Ec) 81 Mg Tab 81 MG PO DAILY Calcium Carbonate (Calcium 600) 600 Mg Tab 1 TAB PO BID Gabapentin (Neurontin) 400 Mg Cap 400 MG PO TID, CAP Ipratropium-Albuterol (Combivent Respimat) 1 Aer Aer 1 PUFF INH PRN for SOB/Wheezing, #4 Ipratropium-Albuterol (Duoneb) 3 Ml Nebu 1 TREATMENT INH Q4H PRN for SOB/Wheezing, INHA Isosorbide Mononitrate (Isosorbide Mononitrate ER) 30 Mg Tabcr 30 MG PO DAILY, #30 Lovastatin (Mevacor) 40 Mg Tab 40 MG PO DAILY, #30 Pantoprazole (Pantoprazole Sodium) 40 Mg Tab 40 MG PO DAILY, #30 Discontinued Medications: Carvedilol (Carvedilol) 12.5 Mg Tab 12.5 MG PO BID, #60 Furosemide (Furosemide) 40 Mg Tab 40 MG PO DAILY, #30 Prednisone (Prednisone) 10 Mg Tab 10 MG PO DAILY, TAB TOOK LAST DOSE TODAY 02/22/16 Valsartan (Valsartan) 40 Mg Tab 40 MG PO DAILY, #60 Discharge Exam Review of Systems: Constitutional: No chills, No fever Eyes: No worsening of vision ENT: No nasal symptoms, No sore throat Respiratory: No cough, No shortness of breath Cardiovascular: No chest pain, No palpitations Abdomen: No constipation, No diarrhea, No nausea, No pain, No vomiting Musculoskeletal: No calf pain, No swelling Genitourinary - Female: No dysuria Neurologic: No vertigo, No weakness Endocrine: No fatigue Hematologic / Lymphatic: No abnormal bleeding/bruising, No clotting problems Integumentary: No rash (Sara Monaco PA-C) Hospital Course ADMISSION: Pt is an 80 year old female arriving by ambulance from home who presents to the ER for evaluation after suffering a possible syncopal episode just prior to arrival. Currently, the patient denies being in any discomfort, and she denies complaints other than feeling tired at this time. The patient is unsure of the exact events leading up to the episode today as she does not recall, but per nursing notes, family reports that the patient had passed out while in her stair chair lift just prior to arrival. Patient did not fall out of her chair or suffer injuries secondary to the episode. The patient mentions that she was recently placed on doxycycline in which she has finished a course as she was diagnosed with pneumonia last week, and though she feels improved from initial onset, she still feels tired. She does note intermittent chills, but she denies fevers or having increased weakness above baseline. She also denies sore throat, worsening cough, chest pain, abdominal pain, nausea, vomiting, diarrhea, urinary symptoms or other acute complaints. Syncope likely 2/2 Orthostatic Hypotension: Dehydration - Assessment - Pt recently finished a 7 day course of doxy for recent PNA so likely fatigue and malaise from recent illness. -- Orthostatics (02/21) - 127/65; 186/69; 125/60 - positive -- Orthostatic (02/22) - with hydration - 203/83; 186/69; 125/60 - positive -- Orthostatic (02/23) - 175/72 pulse 68 sitting and 153/76 pulse 70 standing - patient reports no symptoms of lightheadedness or dizziness -- Head CT - no acute intracranial findings - Echo - EF 55-60% with diastolic dysfunction grade II (pseudonormalization pattern) - Pacemaker interrogation without abnormality - PT/OT - recommended home services Hypertension and Diastolic CHF S/P Pacemaker: - Plan to allow an element of permissive hypertension to accommodate for drastic BP changes during movement - Coreg 6.25 mg BID - Reduced from 12.5 mg BID - Imdur 30 mg daily - STOPPED Valsartan 40 mg daily and Lasix 40 mg daily HLD: - Lovastatin 40 mg daily GERD: - Pantoprazole 40 mg daily Acute Kidney Failure Superimposed on Chronic Kidney Disease Stage III: RESOLVED - Gentle hydration - Cr from 1.7 to 1.3 which appears baseline CAD S/P CABG: - Trops trended - 0.037, 0.027, 0.029 CVA with Subdural Bleed: Noted DVT Prophylaxis Utilized: - Heparin 5000 units Q8H Disposition: - Patient still meets criteria for orthostatic hypotension but is asymptomatic at this time. - Patient advised to utilize home walker and home health services established but patient initially reluctant but did agree - She does live alone with family members near by for assistance however appears a fall risk and is high risk for readmission - Instructed to follow-up with PCP and appointment established - She verbalizes no acute complaints, vitals stable, and she is optimal for D/C home with home health Total Time Spent: Greater than 30 minutes This includes examination of the patient, discharge planning, medication reconciliation, and communication with other providers. (Sara Monaco, BONNIEC) PA Physician Supervision Note: I interviewed and examined the patient. Discussed with Sara Monaco PAC and agree with findings and plan as documented in the note. Any exceptions or clarifications are listed here: None Pt has resolution of symptoms although still with some postural changes of blood pressure, stopping outpt meds and reducing coreg vitals show some lower bp with standing, but no symptoms. car is regular lungs are clear will have home on reduced coreg, stopping valsartan and lasix follow up with primary care and home health for blood pressure monitoring despite recommendations from PT pt refused home PT at discharge Documented By: Doyle Sung (Doyle Sung M.D.) Discharge Instructions Please refer to the electronic Patient Visit Report (Discharge Instructions) for additional information. (Sara Monaco, LONG-C) Additional Copies To Crystal Mcguire C.R.N.P
[2016-07-06] MEDS ORDERED: LVQ750 PO (11:37)
[2016-07-06] MEDS ORDERED: PRD20 PO (11:37)
== END 2016-02-24 14:21 | disposition home health service (06) | DRG 683 ==
LOC: ENRESERVDT → ENRESERVTM → EDBD 13:37 → C.EDC 13:38 → C.MED 18:24
PROVIDERS: ADMIT Hospitalist; ATTEND Hospitalist
DX: N17.9 Acute kidney failure, unspecified (principal); I50.30 Unspecified diastolic (congestive) heart failure; I50.22 Chronic systolic (congestive) heart failure; I13.0 Hypertensive heart and chronic kidney disease with heart failure and stage 1 through stage 4 chronic kidney disease, or unspecified chronic kidney disease; I69.354 Hemiplegia and hemiparesis following cerebral infarction affecting left non-dominant side; I95.1 Orthostatic hypotension; E86.0 Dehydration; I48.2 Chronic atrial fibrillation; I25.10 Atherosclerotic heart disease of native coronary artery without angina pectoris; N18.3 Chronic kidney disease, stage 3 (moderate); E78.5 Hyperlipidemia, unspecified; K21.9 Gastro-esophageal reflux disease without esophagitis; G40.909 Epilepsy, unspecified, not intractable, without status epilepticus; R53.83 Other fatigue; Z79.82 Long term (current) use of aspirin; Z66 Do not resuscitate; Z95.1 Presence of aortocoronary bypass graft; Z95.0 Presence of cardiac pacemaker

== ENCOUNTER → 2016-03-03 | Outpatient (CLI) | payer OTHER ==
[~2016-03-03] MED LIST changes: -CALC500C70 PO; +CALC600T PO; -CRG125 PO; +CRG625 PO; -GABA1CAP4 PO; +GABA1CAP5 PO; -LSX40 PO; +LVQ750 PO; +PRD20 PO; -PROB1TAB16 PO; -VALS-56 PO
== END | disposition home or self-care (01) ==
LOC: C.LABPVFM 07:50
PROVIDERS: ATTEND Nurse Practitioner
DX: N39.0 Urinary tract infection, site not specified (principal)

== ENCOUNTER → 2016-03-31 | Outpatient (CLI) | payer OTHER ==
[2016-03-31 12:45] LABS: ESTIMATED AVERAGE GLUCOSE 151 mg/dl; HA1C FLAG Normal (Normal)
[2016-03-31 13:01] LABS: BLOOD UREA NITROGEN 28 mg/dl (7-18); BUN/CREATININE RATIO 21.7 (10-20); CALCIUM 9.5 mg/dl (8.5-10.1); CARBON DIOXIDE 30 mmol/L (21-32); CHLORIDE 101 mmol/L (98-107); CHOLESTEROL 193 mg/dl (0-200); GLUCOSE 141 mg/dl (70-99); POTASSIUM 4.1 mmol/L (3.5-5.1); SODIUM 140 mmol/L (136-145); TRIGLYCERIDES 309 mg/dl (0-150); VERY LOW DENSITY LIPOPROT CALC 62 mg/dl
[2016-03-31 13:05] LABS: CHOLESTEROL/HDL RATIO 4.2; HDL CHOLESTEROL 46 mg/dl; LDL CHOLESTEROL CALCULATED 85 mg/dl
== END | disposition home or self-care (01) ==
LOC: C.LABPVFM 09:52
PROVIDERS: ATTEND Nurse Practitioner
DX: E11.9 Type 2 diabetes mellitus without complications (principal); I10 Essential (primary) hypertension; N39.0 Urinary tract infection, site not specified; E78.5 Hyperlipidemia, unspecified

== ENCOUNTER → 2016-06-03 | Outpatient (CLI) | payer OTHER ==
[~2016-06-03] MED LIST changes: +PANT40TA2 PO; -PRT/40 PO
== END | disposition home or self-care (01) ==
LOC: C.LABPVFM 12:09
PROVIDERS: ATTEND Nurse Practitioner
DX: N39.0 Urinary tract infection, site not specified (principal)

== ENCOUNTER 2016-07-04 17:42 | Inpatient (IN) | payer OTHER ==
[~2016-07-04] VITALS: Ht 152.4 cm; Wt 58.6 kg
[~2016-07-04 17:42] MED LIST changes: -LVQ750 PO; -PRD20 PO
[2016-07-04] MEDS ORDERED: LEVAQUIN 750MG / 150ML D5W IV STA (17:59)
[2016-07-04] MEDS ORDERED: SODIUM CHLORIDE 0.9% 250ML 250 ML IV STA (17:59)
[2016-07-04] MEDS ORDERED: ALBUT/IPRATROP 3MG/0.5MG NEB 3 ML VIAL INH STA (17:59)
[2016-07-04] MEDS ORDERED: METHYLPREDNISOLONE 125 MG VIAL IV STA (17:59)
[2016-07-04] MEDS ORDERED: SODIUM CHLORIDE 0.9% 1000ML 1,000 ML IV STA (17:59)
--- NOTE | 2016-07-04 18:04 | EMERGENCY ROOM VISIT NOTE ---
History Report prepared by Chaim: Malvin Myers Under the Supervision of: Dr. Nevin Marquez M.D. First contact with patient: 17:51 Chief Complaint: RESPIRATORY PROBLEMS Stated Complaint: CHEST PAIN History of Present Illness The patient is an 81 year old female who presents to the Emergency Room with complaints of a persistent illness that started around 4 days ago. She says that she has been tired and short of breath with a dry cough. The patient's blood pressure is low here at 77, rechecked upon my evaluation is a normal systolic at 125. She denies any bleeding, pain, bowel problems, abdominal pain , swelling, or lack of appetite. The patient had pneumonia a couple months ago and has a history of COPD. She says that she stopped taking antibiotics for pneumonia more than a month ago. She is an ex-smoker, and quit last year. The patient states that she is not on any blood thinners. She does not wear oxygen at home. Source of History: patient Onset: 4 days ago Position: other (global - illness) Timing: other (persistent) Associated Symptoms: + SOB, + cough (dry), + fatigue, No abdominal pain Note: Associated symptoms: Denies bleeding, pain, bowel problems, swelling, or lack of appetite. Review of Systems See HPI for pertinent positives & negatives. A total of 10 systems reviewed and were otherwise negative. Past Medical & Surgical Medical Problems: (1) AORTOCORONARY BYPASS (2) ATRIAL FIBRILLATION (3) CHRONIC KIDNEY DISEASE, STAGE III (MODERATE) (4) CHRONIC SYSTOLIC HRT FAILURE (5) CORON ATHEROSCLER NOS TYPE VESSEL, [place] OR GRAFT (6) CVA (7) Implantation of cardiac pacemaker (8) Lower GI bleed (9) PNEUMONIA, ORGANISM NOS (10) Seizure (11) Subdural hematoma Family History Heart disease Social History Smoking Status: Never Smoker Alcohol Use: none Drug Use: none Marital Status: Housing Status: lives with family Occupation Status: retired Current/Historical Medications Scheduled Aspirin (Aspirin Ec), 81 MG PO DAILY Calcium Carbonate (Calcium 600), 1 TAB PO BID Carvedilol (Carvedilol), 6.25 MG PO BID Gabapentin (Neurontin), 400 MG PO TID Isosorbide Mononitrate (Isosorbide Mononitrate ER), 30 MG PO DAILY Levofloxacin (Levofloxacin), 750 MG PO Q48H Lovastatin (Mevacor), 40 MG PO DAILY Pantoprazole (Pantoprazole Sodium), 40 MG PO DAILY Prednisone (Prednisone), 60 MG PO DAILY Scheduled PRN Ipratropium-Albuterol (Combivent Respimat), 1 PUFF INH for SOB/Wheezing Ipratropium-Albuterol (Duoneb), 1 TREATMENT INH Q4H PRN for SOB/Wheezing Allergies Coded Allergies: Cephalosporins (Verified Allergy, Severe, TONGUE SWELLING WITH KEFLEX, 06/13) Penicillins (Verified Allergy, Severe, HIVES, SOB, 06/13/16) Tamsulosin (Verified Allergy, Severe, SHORTNESS OF BREATH, 06/13/16) Butalbital (Verified Allergy, Intermediate, SHORTNESS OF BREATH, 06/13/16) Levetiracetam (Verified Allergy, Intermediate, RASH, 06/13/16) Sulfa Antibiotics (Verified Allergy, Unknown, "SULFA DRUGS" - UNKNOWN, 06/13) Physical Exam Vital Signs Date Time Temp Pulse Resp B/P Pulse Ox O2 Delivery O2 Flow Rate FiO2 07/04/16 20:12 68 19 97 07/04/16 20:01 163/84 07/04/16 19:57 78 20 95 Nasal Cannula 2.0 07/04/16 19:55 78 22 86 Room Air 07/04/16 19:54 162/72 07/04/16 19:42 62 17 164/60 96 07/04/16 19:12 60 14 97 07/04/16 18:51 95 Nasal Cannula 2.0 07/04/16 18:51 65 22 129/64 92 Room Air 07/04/16 18:48 91 Room Air 07/04/16 18:48 129/64 07/04/16 18:42 62 13 07/04/16 18:22 60 07/04/16 18:12 63 20 89 07/04/16 18:04 61 07/04/16 17:57 125/57 07/04/16 17:44 36.8 86 18 77/51 98 Room Air Physical Exam Vital signs reviewed. General: Elderly, somewhat ill-appearing 81 year old female, in no significant distress. HEENT: No scleral icterus, PERRLA, neck supple. Atraumatic. Cardiovascular: Regular rate and rhythm, no extra sounds. Pulmonary: Coarse breath sounds bilaterally, normal work of breathing. Stable on room air. Abdomen: Soft, nontender, nondistended, positive bowel sounds. Musculoskeletal: Atraumatic, no peripheral edema. Neurologic: Patient awake alert and oriented x 3, full strength in all 4 extremities. Cranial nerves 2 through 12 grossly intact. Skin: Warm, dry, no rash Medical Decision & Procedures ER Provider Diagnostic Interpretation: X-ray results as stated below per interpretation by me and the radiologist: CHEST ONE VIEW PORTABLE CLINICAL HISTORY: COPD exacerbation dyspnea COMPARISON STUDY: 02/22/2016 FINDINGS: Emphysematous change. Early congestive failure. Prior median sternotomy. Bipolar cardiac pacemaker. IMPRESSION: Early congestive failure superimposed upon emphysematous change Electronically signed by: Jered Gaona M.D. 07/04/2016 6:20 PM Dictated Date/Time: 07/04/2016 6:20 PM Laboratory Results Test 07/04/16 18:43 07/04/16 19:12 Prothrombin Time 10.8 SECONDS (9.0-12.0) Prothromb Time International Ratio 1.0 (0.9-1.1) Activated Partial Thromboplast Time 27.1 SECONDS (21.0-31.0) Partial Thromboplastin Ratio 1.0 Total Bilirubin 0.5 mg/dl (0.2-1) Direct Bilirubin 0.1 mg/dl (0-0.2) Aspartate Amino Transf (AST/SGOT) 14 U/L (15-37) Alanine Aminotransferase (ALT/SGPT) 14 U/L (12-78) Alkaline Phosphatase 88 U/L (45-117) Total Creatine Kinase 80 U/L (26-192) Creatine Kinase MB 2.1 ng/ml (0.5-3.6) Creatine Kinase MB Ratio 2.6 (0-3.0) Total Protein 7.9 gm/dl (6.4-8.2) Albumin 3.6 gm/dl (3.4-5.0) Random Cortisol 17.64 mcg/dl Bedside Troponin I 0.000 ng/ml (0-0.045) BF-Arv-S-Type Natriuretic Peptide 2466 pg/ml (0-1800) Date/Time Source Procedure Growth Status 07/04/16 18:42 Urine , Clean Catch Urine Culture - Final Pseudomonas Aeruginosa Pseudomonas Aeruginosa#2 Complete Laboratory results per my review. Medications Administered Medications (Trade) Dose Ordered Sig/[place]anning Route Start Time Stop Time Status Last Admin Dose Admin Albuterol/ Ipratropium 3 ml 3 ml NOW STAT INH 07/04/16 17:59 07/04/16 18:02 DC 07/04/16 19:14 3 ML Sodium Chloride 250 ml @ 999 mls/hr Q16M STAT IV 07/04/16 17:59 07/04/16 18:14 DC 07/04/16 19:14 999 MLS/HR Sodium Chloride (Nss 1000ml) 1,000 ml @ 125 mls/hr Q8H STAT IV 07/04/16 17:59 07/04/16 22:37 DC 07/04/16 19:14 125 MLS/HR Levofloxacin (Levaquin / D5W) 750 mg NOW STAT IV 07/04/16 17:59 07/04/16 18:03 DC 07/04/16 19:14 750 MG Methylprednisolone Sodium Succinate (Solu-Medrol IV) 125 mg NOW STAT IV 07/04/16 17:59 07/04/16 18:03 DC 07/04/16 19:14 125 MG ECG Indication: SOB/dyspnea Rate (beats per minute): 66 Rhythm: other (atrially paced rhythm) Findings: other (previous anterior septal infarct, repolarization abnormality) Change: no significant change (compared to February 21 of this year) ED Course 1753: Past medical records reviewed. The patient was evaluated in room C6. A complete history and physical examination was performed. 1758: Ordered Solu-Medrol IV 125 mg IV, Levaquin / D5W 750 mg IV, NSS 1000 ml @ 125 mls/hr IV, NSS 250 ml @ 999 mls/hr IV, Duoneb 3 ml INH. 1935: I reevaluated the patient and updated her. We are going to work on her ambulatory pulse ox. The patient verbally expressed understanding and agreement of the treatment plan. The patient will be evaluated for further treatment. 2018: I discussed the patient with Dr. Davis - [facility] [place] clinical laboratory scientist - he will evaluate the patient for further treatment. Medical Decision Differential diagnosis: Etiologies such as infections, reactive airway disease, pneumonia, pneumothorax , COPD, CHF, cardiac ischemia, pulmonary embolism, musculoskeletal, gastrointestinal, as well as others were entertained. This patient was evaluated and appeared to be in no significant distress. The patient received a DuoNeb treatment with stable oxygenation. Chest x-ray reveals emphysematous changes with mild congestion. Laboratory work reveals a mild renal insufficiency. EKG reveals an atrially paced rhythm. Cardiac enzymes are normal. Patient was given IV Solu-Medrol and IV Levaquin for the likelihood of a COPD exacerbation. She did receive some IV hydration for the relative hypotension initially. The case was discussed with Dr. Ballard the hospitalist service will evaluate the patient for admission and further management. Patient family are aware of the plan and agree. Consults Time Called: 2004 Consulting Physician: Dr. Ryan BARRAZA clinical laboratory scientist Returned Call: 2017 (in person) I discussed the patient with Dr. Ryan BARRAZA clinical laboratory scientist - he will evaluate the patient for further treatment. Impression Primary Impression: CHF (congestive heart failure) Additional Impression: COPD exacerbation Scribe Attestation The scribe's documentation has been prepared under my direction and personally reviewed by me in its entirety. I confirm that the note above accurately reflects all work, treatment, procedures, and medical decision making performed by me. Departure Information Dispostion Being Evaluated By Hospitalist Prescriptions Prednisone (Prednisone) 20 Mg Tab 60 MG PO DAILY, #12 TAB x 2 days then 40mg daily x 2 days then 20mg daily x 2 days then stop Prov: Nicki Teague MD 07/06/16 Levofloxacin (Levofloxacin) 750 Mg Tab 750 MG PO Q48H, #3 TAB Prov: Nicki Teague MD 07/06/16 Referrals Crystal Mcguire C.R.N.P (PCP) Patient Instructions My [facility] Problem Qualifiers
--- NOTE | 2016-07-04 18:22 | DIAGNOSTIC IMAGING REPORT ---
CHEST ONE VIEW PORTABLE CLINICAL HISTORY: COPD exacerbation dyspnea COMPARISON STUDY: 02/22/2016 FINDINGS: Emphysematous change. Early congestive failure. Prior median sternotomy. Bipolar cardiac pacemaker. IMPRESSION: Early congestive failure superimposed upon emphysematous change Electronically signed by: Jered Gaona M.D. 07/04/2016 6:20 PM Dictated Date/Time: 07/04/2016 6:20 PM
[2016-07-04 19:20] LABS: BASO % 0.4 %; BASO ABS # 0.04 K/uL (0-0.2); COMPLETE YES; EOS % 0.6 %; HEMATOCRIT 40.1 % (37-47); IG% 0.2 %; LYMPH % 33.4 %; LYMPH ABS # 3.23 K/uL (1.2-3.4); MEAN CELL VOLUME 85.1 fL (80-100); MEAN CORPUSCULAR HEMOGLOBIN 27.2 pg (25-34); MEAN CORPUSCULAR HGB CONC 31.9 g/dl (32-36); MEAN PLATELET VOLUME 10.1 fL (7.4-10.4); MONO % 3.9 %; NEUT % 61.5 %; PLATELET COUNT 241 K/uL (130-400); RED BLOOD COUNT 4.71 M/uL (4.2-5.4); WHITE BLOOD COUNT 9.68 K/uL (4.8-10.8)
[2016-07-04 19:42] LABS: ALT/SGPT 14 U/L (12-78); AST/SGOT 14 U/L (15-37); BLOOD UREA NITROGEN 21 mg/dl (7-18); BUN/CREATININE RATIO 14.2 (10-20); CALCIUM 9.1 mg/dl (8.5-10.1); CARBON DIOXIDE 31 mmol/L (21-32); CHLORIDE 104 mmol/L (98-107); GLUCOSE 100 mg/dl (70-99); MAGNESIUM 2.1 mg/dl (1.8-2.4); POTASSIUM 4.3 mmol/L (3.5-5.1); SODIUM 141 mmol/L (136-145)
[2016-07-04 19:47] LABS: ALKALINE PHOSPHATASE 88 U/L (45-117); CKMB/CK RATIO 2.6 (0-3.0)
[2016-07-04] MEDS ORDERED: MAGNESIUM HYDROXIDE SUSP 30 ML UDC PO PRN (20:30)
[2016-07-04] MEDS ORDERED: ALUMINUM/MAGNESIUM/SIMETH (MAALOX MAX) 30 ML UDC PO PRN (20:30)
[2016-07-04] MEDS ORDERED: POLYETHYLENE (MIRALAX) 17 GM PACK PO PRN (20:30)
[2016-07-04] MEDS ORDERED: ONDANSETRON INJ 2 MG/ML 2 ML VIAL IV PRN (20:30)
[2016-07-04] MEDS ORDERED: ACETAMINOPHEN 325 MG TAB PO PRN (20:30)
--- NOTE | 2016-07-04 20:37 | History and Physical ---
History & Physical Date & Time of Service: July 04, 2016 at 20:31 Chief Complaint: Chest Pain Primary Care Physician: Crystal Mcguire C.R.N.P History of Present Illness Source: patient 81 y/o F Hx diastolic CHF, COPD, AF, CKD, pacer. Pt presents with a primary complaint of weakness. She began feeling ill 3 days prior but had refused medical attention. She was sleeping excessively for the past 2 days and also developed dyspnea and a persistent cough. She was evaluated by her primary MD and instructed to attend the ER. Thr pt was noted to be hypotensive and hypoxic at triage. She was administered a bolus of fluid which served to correct her low BP. She denies fevers, CP, N/V /D. Initial CXR was read as COPD and early failure, however, her oxygen saturation did not appear to suffer as a consequence of a fluid bolus. 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 (8) Pneumonia Status: Chronic (9) Seizure Status: Chronic (10) Subdural hematoma Status: Chronic 11) Unsteady gait 12) History of DM in chart - no relevant meds presently Family History Heart disease Social History Quit smoking one year ago - does not drink alcohol Smoking Status: Never Smoker Drug Use: none Marital Status: Housing status: lives alone Occupational Status: retired Immunizations History of Influenza Vaccine: Yes Influenza Vaccine Date: Nov 08, 2011 History of Tetanus Vaccine?: No History of Pneumococcal: No Pneumococcal Date: Jan 01, 2009 History of Hepatitis B Vaccine: No Multi-Drug Resistant Organisms History of MDRO: No Allergies Coded Allergies: Cephalosporins (Verified Allergy, Severe, TONGUE SWELLING WITH KEFLEX, 06/13) Penicillins (Verified Allergy, Severe, HIVES, SOB, 06/13/16) Tamsulosin (Verified Allergy, Severe, SHORTNESS OF BREATH, 06/13/16) Butalbital (Verified Allergy, Intermediate, SHORTNESS OF BREATH, 06/13/16) Levetiracetam (Verified Allergy, Intermediate, RASH, 06/13/16) Sulfa Antibiotics (Verified Allergy, Unknown, "SULFA DRUGS" - UNKNOWN, 06/13) Home Medications Scheduled Aspirin (Aspirin Ec), 81 MG PO DAILY Calcium Carbonate (Calcium 600), 1 TAB PO BID Carvedilol (Carvedilol), 6.25 MG PO BID Gabapentin (Neurontin), 400 MG PO TID Isosorbide Mononitrate (Isosorbide Mononitrate ER), 30 MG PO DAILY Lovastatin (Mevacor), 40 MG PO DAILY Pantoprazole (Pantoprazole Sodium), 40 MG PO DAILY Scheduled PRN Ipratropium-Albuterol (Combivent Respimat), 1 PUFF INH for SOB/Wheezing Ipratropium-Albuterol (Duoneb), 1 TREATMENT INH Q4H PRN for SOB/Wheezing Review of Systems Constitutional: + fatigue, + weakness, No chills, No fever, No sweats Eyes: No eye pain, No worsening of vision ENT: No hearing loss, No nasal symptoms, No unusual epistaxis Respiratory: + cough, + dyspnea at rest, + dyspnea on exertion, + shortness of breath, + sputum Cardiovascular: No PND, No chest pain, No orthopnea Abdomen: No nausea, No pain, No vomiting Musculoskeletal: No joint pain, No muscle pain Genitourinary - Female: No dysuria, No urinary frequency, No urinary urgency Neurologic: + weakness, No memory loss, No paralysis Psychiatric: No anhedonism, No depression symptoms Endocrine: + fatigue Hematologic / Lymphatic: No abnormal bleeding/bruising Integumentary: No rash Allergic / Immunologic: No environmental allergies Physical Exam Vital Signs Date Time Temp Pulse Resp B/P Pulse Ox O2 Delivery O2 Flow Rate FiO2 07/04/16 19:57 78 20 95 Nasal Cannula 2.0 07/04/16 19:55 78 22 86 Room Air 07/04/16 18:51 95 Nasal Cannula 2.0 07/04/16 18:51 65 22 129/64 92 Room Air 07/04/16 18:48 91 Room Air 07/04/16 18:22 60 07/04/16 18:04 61 07/04/16 17:44 36.8 86 18 77/51 98 Room Air General Appearance: WD/WN, no apparent distress, + pertinent finding (Pleasant elderly F - AAO x 3) Head: normocephalic, atraumatic Eyes: normal inspection, EOMI ENT: normal ENT inspection, hearing grossly normal, TMs normal, pharynx normal Neck: supple, no JVD Respiratory/Chest: chest non-tender, no accessory muscle use, + decreased breath sounds, + crackles Cardiovascular: regular rate, rhythm, no edema, no gallop, no JVD, + systolic murmur Abdomen/GI: normal bowel sounds, non tender, soft Back: normal inspection, no CVA tenderness, no muscle spasm Extremities/Musculoskelatal: normal inspection, no calf tenderness, normal capillary refill, no pedal edema, normal range of motion Neurologic/Psych: supervisor fertilizer II-XII nml as tested, no motor/sensory deficits, alert, oriented x 3 Skin: normal color, warm/dry, no rash Diagnostics Laboratory Results Results Past 24 Hours Test 07/04/16 18:43 07/04/16 19:12 07/04/16 20:22 Range/Units White Blood Count 9.68 4.8-10.8 K/uL Red Blood Count 4.71 4.2-5.4 M/uL Hemoglobin 12.8 12.0-16.0 g/dL Hematocrit 40.1 37-47 % Mean Corpuscular Volume 85.1 80-100 fL Mean Corpuscular Hemoglobin 27.2 25-34 pg Mean Corpuscular Hemoglobin Concent 31.9 32-36 g/dl Platelet Count 241 130-400 K/uL Mean Platelet Volume 10.1 7.4-10.4 fL Neutrophils (%) (Auto) 61.5 % Lymphocytes (%) (Auto) 33.4 % Monocytes (%) (Auto) 3.9 % Eosinophils (%) (Auto) 0.6 % Basophils (%) (Auto) 0.4 % Neutrophils # (Auto) 5.95 1.4-6.5 K/uL Lymphocytes # (Auto) 3.23 1.2-3.4 K/uL Monocytes # (Auto) 0.38 0.11-0.59 K/uL Eosinophils # (Auto) 0.06 0-0.5 K/uL Basophils # (Auto) 0.04 0-0.2 K/uL RDW Standard Deviation 50.3 36.4-46.3 fL RDW Coefficient of Variation 16.1 11.5-14.5 % Immature Granulocyte % (Auto) 0.2 % Immature Granulocyte # (Auto) 0.02 0.00-0.02 K/uL Sodium Level 141 136-145 mmol/L Potassium Level 4.3 3.5-5.1 mmol/L Chloride Level 104 98-107 mmol/L Carbon Dioxide Level 31 21-32 mmol/L Anion Gap 6.0 3-11 mmol/L Blood Urea Nitrogen 21 7-18 mg/dl Creatinine 1.50 0.60-1.20 mg/dl Estimated GFR () 37.0 Estimated GFR (Non- 31.9 BUN/Creatinine Ratio 14.2 10-20 Random Glucose 100 70-99 mg/dl Calcium Level 9.1 8.5-10.1 mg/dl Magnesium Level 2.1 1.8-2.4 mg/dl Total Bilirubin 0.5 0.2-1 mg/dl Direct Bilirubin 0.1 0-0.2 mg/dl Aspartate Amino Transf (AST/SGOT) 14 15-37 U/L Alanine Aminotransferase (ALT/SGPT) 14 12-78 U/L Alkaline Phosphatase 88 45-117 U/L Total Creatine Kinase 80 26-192 U/L Creatine Kinase MB 2.1 0.5-3.6 ng/ml Creatine Kinase MB Ratio 2.6 0-3.0 Total Protein 7.9 6.4-8.2 gm/dl Albumin 3.6 3.4-5.0 gm/dl Bedside Troponin I 0.000 0-0.045 ng/ml ID-Nux-[id number]-Type Natriuretic Peptide 2466 0-1800 pg/ml Microbiology Results 07/04/16 Blood Culture, Received Pending 07/04/16 Blood Culture, Received Pending 07/04/16 Urine Culture, Received Pending Diagnostic Radiology CXR: Early congestive failure superimposed upon emphysematous change EKG Atrial pacing - IVCD - evidence of prior anterior WA - no acute ischemic changes Impression Assessment and Plan 81 y/o F Hx diastolic CHF, COPD, AF, CKD, pacer. Pt presents with a primary complaint of weakness. She began feeling ill 3 days prior but had refused medical attention. She was sleeping excessively for the past 2 days and also developed dyspnea and a persistent cough. She was evaluated by her primary MD and instructed to attend the ER. The pt was noted to be hypotensive and hypoxic at triage. She was administered a bolus of fluid which served to correct her low BP. She denies fevers, CP, N/V /D. Initial CXR was read as COPD and early failure, however, her oxygen saturation did not appear to suffer as a consequence of a fluid bolus. 1) Dyspnea/hypoxia - CHF vs COPD or URI - XR read as CHF - not clinically consistent with presentation and low BP. Pt will be sent for a CT without contrast to evaluate for occult PNM. She has been started on antibiotics, nebs and placed on an 02 protocol pending the results. 2) CHF - does not normally take diuretics - will monitor on telemetry - in event that CT is read as CHF we will order an echo. She will remain on a B mike as tolerated. 3) COPD - treated as above with antibiotics and nebs - received an initial dose of steroids in ER - consider continuing of there is no PNM on CT or if dyspnea fails to improve 4) CAD - no evidence of ACS - no EKG changes or enzyme elevations 5) CKD - creatinine is slightly above baseline of approximately 1.3 - received IVF - trend BMP AM Full code Total time for this admit including review of labs, meds, EKG, records - discussion with pt and ER attending 38 min Level of Care Telemetry Resuscitation Status FULL RESUSCITATION VTE Prophylaxis VTE Risk Assessment Done? Y/N: Yes Risk Level: Low Given or contraindicated: Unfractionated heparin SQ
--- NOTE | 2016-07-04 20:49 | DIAGNOSTIC IMAGING REPORT ---
CHEST CT WITHOUT CONTRAST CT DOSE: 225.32 mGy.cm HISTORY: Dyspnea SOB - low BP - XR read as CHF TECHNIQUE: Multiaxial CT images of the chest were performed without contrast. COMPARISON: 01/14/2011 FINDINGS: Emphysematous change. Moderate prominence of pulmonary vasculature. Pleural-based nodule left base laterally unchanged from the prior study. This appears to be chronic parenchymal scar and/or pleural based scar. Mild cardiomegaly. Prior median sternotomy. Permanent bipolar cardiac pacemaker. IMPRESSION: 1. Moderate emphysematous change with pulmonary vascular congestion. 2. Chronic pleural and parenchymal change left lung base. Electronically signed by: Jered Gaona M.D. 07/04/2016 8:48 PM Dictated Date/Time: 07/04/2016 8:46 PM
[2016-07-04 21:45] VITALS: BP 143/66; PULSE 71; TEMP 36.6; O2SAT 94; Ht 152.4 cm; Wt 58.6 kg
[2016-07-04] MEDS ORDERED: PATIENT'S HEIGHT AND/OR WEIGHT NEEDED SCH (22:00)
[2016-07-04] MEDS ORDERED: LEVOFLOXACIN CONSULT ACTIVE PRN (22:00)
[2016-07-04 22:18] LABS: PROTHROMBIN TIME (PATIENT) 10.8 SECONDS (9.0-12.0)
[2016-07-04] MEDS: CARVEDILOL 6.25 MG TAB PO SCH (22:58)
[2016-07-04] MEDS: GABAPENTIN 400 MG CAP PO SCH (22:58)
[2016-07-04] MEDS: CALCIUM CARBONATE 1250MG TAB PO SCH (22:58)
[2016-07-04] MEDS: ALBUT/IPRATROP 3MG/0.5MG NEB 3 ML VIAL INH SCH (23:30)
[2016-07-04 23:34] VITALS: PULSE 62; O2SAT 96
[2016-07-04] MEDS: HEPARIN SOD 5000 UNIT/0.5 ML CARP SQ SCH (23:46)
[2016-07-05] VITALS (10 sets, daily range): BP systolic 117–177; BP diastolic 66–79; PULSE 60–72; TEMP 36.5–36.9; O2SAT 88–97
[2016-07-05] MEDS: ALBUT/IPRATROP 3MG/0.5MG NEB 3 ML VIAL INH SCH ×4 (02:16→19:26)
[2016-07-05] MEDS: HEPARIN SOD 5000 UNIT/0.5 ML CARP SQ SCH ×3 (05:28→22:05)
[2016-07-05 06:39] LABS: BLOOD UREA NITROGEN 23 mg/dl (7-18); BUN/CREATININE RATIO 16.5 (10-20); CARBON DIOXIDE 30 mmol/L (21-32); CHLORIDE 102 mmol/L (98-107); GLUCOSE 188 mg/dl (70-99); MAGNESIUM 2.2 mg/dl (1.8-2.4); POTASSIUM 4.1 mmol/L (3.5-5.1); SODIUM 141 mmol/L (136-145)
[2016-07-05] MEDS: ISOSORBIDE MONONITRATE 30 MG TABCR PO SCH (08:14)
[2016-07-05] MEDS: PANTOprazole SOD 40 MG TAB PO SCH (08:14)
[2016-07-05] MEDS: LOVASTATIN 20 MG TAB PO SCH (08:14)
[2016-07-05] MEDS: GABAPENTIN 400 MG CAP PO SCH ×3 (08:14→20:21)
[2016-07-05] MEDS: CALCIUM CARBONATE 1250MG TAB PO SCH ×2 (08:14→20:21)
[2016-07-05] MEDS: ASPIRIN 81 MG ECTAB PO SCH (08:15)
[2016-07-05] MEDS: CARVEDILOL 6.25 MG TAB PO SCH ×2 (08:15→20:21)
--- NOTE | 2016-07-05 10:15 | Clinical Documentation Query ---
JOSE ENRIQUE Walsh : CLINICAL DOCUMENTATION QUERIES QUERY 1 OF 2 Patient is an 81 year old female admitted for evaluation and treatment of hypoxia and dyspnea. Documentation includes COPD, not otherwise specified. As appropriate, consider documentation as suggested below to capture the appropriate acuity of the disease necessitating inpatient admission. She is being treated with antibiotics, nebulizers, supplemental oxygen, and has recieved IV steroids. In your clinical opinion is this patient being managed for: ( x ) COPD with (acute) exacerbation ( ) Other explanation of clinical findings (Please Explain) ( ) Unable to determine (Please Define) ( ) Need to Discuss ( ) Not Agree The medical record reflects the following clinical findings, treatment, and risk factors. Clinical Indicators: Dyspnea, persistent cough, hypoxia in triage. Treatment:She is being treated with antibiotics, nebulizers, and has recieved IV steroids. Risk Factors: Age, former smoker QUERY 2 OF 2 Documentation includes history of diastolic CHF. Noted to not normally take diuretics at home. Chest radiograph demonstrated "early congestive failure,...,". CT scan of the chest was obtained to further detail pathophysiologic process. It demonstrated "moderate prominence of pulmonary vasculature". H&P stated "in event that CT is read as CHF we will order an echo". An echo has been ordered. She has been maintained on Imdur and Coreg, provided supplemental oxygen, and is being monitored on telemetry with daily weights, I/O, and a RAUDEL diet. Please clarify as clinically able. Thank you. In your clinical opinion is this patient being managed for: ( ) Acute on chronic diastolic CHF ( x ) Other explanation of clinical findings (Please Explain) chronic systolic and diastolic CHF ( ) Unable to determine (Please Define) ( ) Need to Discuss ( ) Not Agree The medical record reflects the following clinical findings, treatment, and risk factors. Clinical Indicators: As above Treatment:She has been maintained on Imdur and Coreg, and is being monitored on telemetry Risk Factors: Age, AF, CKD, CAD Please clarify and document your clinical opinion in the progress notes and discharge summary. Terms such as "probable", "suspected", "likely", "questionable", "possible", or "still to be ruled out" are acceptable. IF IN AGREEMENT, YOU MUST DOCUMENT ABOVE DIAGNOSTIC STATEMENT IN DAILY PROGRESS NOTES AND DISCHARGE SUMMARY. This document is not part of the patient's record. Thank You, Mckinley Spivey, RN [phone]
--- NOTE | 2016-07-05 10:54 | Cardiology Consultation ---
Cardiology Consultation Date of Consultation: July 05, 2016. Requesting Physician: Dr. Teague Reason for Consultation: CHF, pacer Pt evaluation today including: conversation w/ patient, physical exam, lab review, review of studies, review of inpatient medication list History of Present Illness This is an 81-year-old female with ischemic cardiomyopathy and an initial ejection fraction 20-25%. She underwent two-vessel coronary artery bypass grafting in March 2010 and a mitral valve repair with annuloplasty. Her postoperative course was complicated by CHF. After diuresis and adjustment of her medications an echocardiogram demonstrated improvement in ejection fraction to 45% with moderate mitral and tricuspid regurgitation. She was subsequently admitted for complete heart block and underwent dual-chamber pacemaker implantation on November 09, 2011. Subsequently she has had infrequent ventricular pacing suggesting that this is a transient event. An echocardiogram was done 11/21/2014, this showed normal systolic function with mild left ventricular hypertrophy. This was repeated 02/23/2016 in her left ventricular function was normal with an ejection fraction of 55-60% with mild concentric left ventricular hypertrophy and aortic sclerosis with mild MR. She is now admitted with 3 days of feeling poorly, sleeping excessively and feeling very weak as well as short of breath. In the emergency room she was noted to be hypotensive and hypoxic. Cardiac enzymes were negative on arrival, BNP was slightly elevated. Both the chest x-ray and CT scan suggested early heart failure but no overt pulmonary edema. She feels considerably better with preliminary treatment and has no complaints today. She had no chest discomfort and no palpitations. Past Medical/Surgical History (1) CORON ATHEROSCLER NOS TYPE VESSEL, ALUTIIQ OR GRAFT (2) Implantation of cardiac pacemaker Family History Heart disease Social History Smoking Status: Former Smoker History of Alcohol Use: Yes (wine socially ) Review of Systems Constitutional: No fever, No weakness, No weight loss Respiratory: + see HPI, + shortness of breath, No cough, No dyspnea on exertion , No wheezing Cardiac: + see HPI, No PND, No chest pain, No edema, No orthopnea, No palpitations Abdomen: No GI bleeding, No diarrhea, No nausea, No pain, No vomiting Female : No problem reported Neurologic: No balance problems, No numbness/tingling, No paralysis, No weakness Heme: No abnormal bleeding/bruising, No clotting problems Endo: No fatigue Skin: No problem reported All Other Systems: Reviewed and Negative Allergies Coded Allergies: Cephalosporins (Verified Allergy, Severe, TONGUE SWELLING WITH KEFLEX, 06/13) Penicillins (Verified Allergy, Severe, HIVES, SOB, 06/13/16) Tamsulosin (Verified Allergy, Severe, SHORTNESS OF BREATH, 06/13/16) Butalbital (Verified Allergy, Intermediate, SHORTNESS OF BREATH, 06/13/16) Levetiracetam (Verified Allergy, Intermediate, RASH, 06/13/16) Sulfa Antibiotics (Verified Allergy, Unknown, "SULFA DRUGS" - UNKNOWN, 06/13) Medications Current Inpatient Medications Medications (Trade) Dose Ordered Sig/Channing Route Start Time Stop Time Status Last Admin Dose Admin Aspirin (Ecotrin Tab) 81 mg DAILY PO 07/05/16 09:00 08/04/16 08:59 07/05/16 08:15 81 MG Carvedilol (Coreg Tab) 6.25 mg BID PO 07/04/16 21:00 08/03/16 20:59 07/05/16 08:15 6.25 MG Gabapentin (Neurontin Cap) 400 mg TID PO 07/04/16 21:00 08/03/16 20:59 07/05/16 08:14 400 MG Isosorbide Mononitrate (Imdur Ext Rel Tab) 30 mg DAILY PO 07/05/16 09:00 08/04/16 08:59 07/05/16 08:14 30 MG Lovastatin (Mevacor Tab) 40 mg DAILY PO 07/05/16 09:00 08/04/16 08:59 07/05/16 08:14 40 MG Pantoprazole Sodium (Protonix Tab) 40 mg DAILY PO 07/05/16 09:00 08/04/16 08:59 07/05/16 08:14 40 MG Calcium Carbonate (oS-Meile 500 TAB) 1,250 mg BID PO 07/04/16 21:00 08/03/16 20:59 07/05/16 08:14 1,250 MG Albuterol/ Ipratropium (Duoneb) 3 ml Q6R INH 07/04/16 21:00 08/03/16 20:59 07/05/16 07:15 3 ML Levofloxacin (Levaquin Tab) 750 mg Q48H PO 07/06/16 19:00 07/11/16 18:59 Heparin Sodium (Porcine) (Heparin Sq 5000 Unit/0.5ml) 5,000 unit Q8 SQ 07/04/16 22:00 08/03/16 21:59 07/05/16 05:28 5,000 UNIT Acetaminophen (Tylenol Tab) 650 mg Q4H PRN PO 07/04/16 20:30 08/03/16 20:29 Al Hydrox/Mg Hydrox/Simethicone (Maalox Max Susp) 15 ml Q4H PRN PO 07/04/16 20:30 08/03/16 20:29 Magnesium Hydroxide (Milk Of Magnesia Susp) 30 ml Q12H PRN PO 07/04/16 20:30 08/03/16 20:29 Ondansetron HCl (Zofran Inj) 4 mg Q6H PRN IV 07/04/16 20:30 08/03/16 20:29 Polyethylene (Miralax Powder Packet) 17 gm DAILY PRN PO 07/04/16 20:30 08/03/16 20:29 Levofloxacin (Consult) 1 ea UD PRN N/A 07/04/16 22:00 08/03/16 21:59 Physical Exam Vital Signs Past 12 Hours Date Time Temp Pulse Resp B/P Pulse Ox O2 Delivery O2 Flow Rate FiO2 07/05/16 07:30 Nasal Cannula 2.0 07/05/16 07:20 36.9 64 18 177/79 94 2.0 07/05/16 07:15 66 20 95 Nasal Cannula 2.0 07/05/16 04:09 36.6 65 18 166/74 95 Nasal Cannula 2.0 07/05/16 04:00 Room Air Humidified Oxygen 07/04/16 23:59 Room Air Humidified Oxygen 07/04/16 23:34 62 18 96 Nasal Cannula 2.0 Constitutional: General Apperance: heathly-appearing Level of Distress: NAD Psychiatric: Mental Status: active & alert Head: normocephalic Eyes: EOM: EOMI ENMT: normal ENT inspection, hearing grossly normal Neck: supple, no masses Lungs: Respiratory effort: no dyspnea Auscultation: decreased breath sounds Cardiovascular: Heart Auscultation: RRR, no murmurs, no rubs, no gallops Peripheral Pulses: Bruits: none appreciated Abdomen: Bowel Sounds: normal Inspection & Palpation: soft, no tenderness, guarding & rebound, no masses Musculoskeletal: normal strength (5/5 throughout) Extremities: no edema Neurologic: Cranial Nerves: grossly intact Sensation: grossly intact Data Laboratory Results: Last 24 Hours Test 07/04/16 18:43 07/04/16 19:12 07/05/16 05:15 White Blood Count 9.68 K/uL Red Blood Count 4.71 M/uL Hemoglobin 12.8 g/dL Hematocrit 40.1 % Mean Corpuscular Volume 85.1 fL Mean Corpuscular Hemoglobin 27.2 pg Mean Corpuscular Hemoglobin Concent 31.9 g/dl Platelet Count 241 K/uL Mean Platelet Volume 10.1 fL Neutrophils (%) (Auto) 61.5 % Lymphocytes (%) (Auto) 33.4 % Monocytes (%) (Auto) 3.9 % Eosinophils (%) (Auto) 0.6 % Basophils (%) (Auto) 0.4 % Neutrophils # (Auto) 5.95 K/uL Lymphocytes # (Auto) 3.23 K/uL Monocytes # (Auto) 0.38 K/uL Eosinophils # (Auto) 0.06 K/uL Basophils # (Auto) 0.04 K/uL RDW Standard Deviation 50.3 fL RDW Coefficient of Variation 16.1 % Immature Granulocyte % (Auto) 0.2 % Immature Granulocyte # (Auto) 0.02 K/uL Prothrombin Time 10.8 SECONDS Prothromb Time International Ratio 1.0 Activated Partial Thromboplast Time 27.1 SECONDS Partial Thromboplastin Ratio 1.0 Sodium Level 141 mmol/L 141 mmol/L Potassium Level 4.3 mmol/L 4.1 mmol/L Chloride Level 104 mmol/L 102 mmol/L Carbon Dioxide Level 31 mmol/L 30 mmol/L Anion Gap 6.0 mmol/L 9.0 mmol/L Blood Urea Nitrogen 21 mg/dl 23 mg/dl Creatinine 1.50 mg/dl 1.40 mg/dl Estimated GFR () 37.0 40.2 Estimated GFR (Non- 31.9 34.7 BUN/Creatinine Ratio 14.2 16.5 Random Glucose 100 mg/dl 188 mg/dl Calcium Level 9.1 mg/dl 9.0 mg/dl Magnesium Level 2.1 mg/dl 2.2 mg/dl Total Bilirubin 0.5 mg/dl Direct Bilirubin 0.1 mg/dl Aspartate Amino Transf (AST/SGOT) 14 U/L Alanine Aminotransferase (ALT/SGPT) 14 U/L Alkaline Phosphatase 88 U/L Total Creatine Kinase 80 U/L Creatine Kinase MB 2.1 ng/ml Creatine Kinase MB Ratio 2.6 Total Protein 7.9 gm/dl Albumin 3.6 gm/dl Random Cortisol 17.64 mcg/dl Bedside Troponin I 0.000 ng/ml [id number] Natriuretic Peptide 2466 pg/ml Est Creatinine Clear Calc Drug Dose 24.2 ml/min Troponin I < 0.015 ng/ml Imaging: Chest x-ray: Possible mild congestive heart failure EKG: Atrial pacing with intact AV conduction. No acute changes. Telemetry reviewed: Sinus rhythm and atrial pacing with intact AV conduction. Assessment & Plan #1. Shortness of breath: The cause of shortness of breath is probably pulmonary primarily, there may be a minor cardiac troponin but that seems unlikely. She had an evaluation in February for her left ventricular function and her BNP was minimally elevated. I would not pursue further cardiac evaluation at this time. #2. Dual-chamber pacemaker: Last evaluated 06/03/2016. It was functioning well with excellent pacing and sensing characteristics. Excellent battery longevity. She was pacing infrequently and she did have intrinsic AV conduction. #3. Complete heart block: At implant she had complete heart block, however she has intrinsic conduction the majority of the time since implant. That seems to be the case this admission as well. #3. Coronary artery disease: Symptomatically stable with no anginal symptoms. Initial cardiac enzymes were negative and this does not appear to be a primary cardiac ischemic events. #5. Cardiomyopathy: Her left ventricular function based on echocardiogram in November 2014 had normalized, and on echocardiography 02/23/2016 remained normal. I would however continue to maintain her on carvedilol and valsartan if possible. I would not pursue further evaluation now. Thank you for allowing me to participate in her care.
--- NOTE | 2016-07-05 17:19 | ECHOCARDIOGRAM REPORT ---
*NOTICE TO RECEIVING REPUBLICAN AGENCY This information is strictly Confidential and protected under [place] law. [place] law prohibits you from making any further disclosure of this information unless further disclosure is expressly permitted by the written consent of the person to whom it pertains or is authorized by law. A general authorization for the release of medical or other information is not sufficient for this purpose. Hospital accepts no responsibility if the information is made available to any other person, INCLUDING THE PATIENT. Interpretation Summary * Name: TIM GATES Study Date: 07/05/2016 06:39 AM BP: 177/79 mmHg * Patient Location: [facility] HR: 67 * : 1935 (M/d/yyyy) Gender: Female Height: 60 in * Age: 81 yrs Ethnicity: [place] Weight: 127 lb * Ordering Physician: Yared Davis * Referring Physician: PARVEEN * Performed By: Zora Hernandez RDCS * * Reason For Study: CHF * BSA: 1.5 m2 * Mild - moderate left ventricular systolic dysfunction. * Mild concentric left ventricular hypertrophy. * Left ventricular diastolic dysfunction. * Mitral valve sclerosis with mild stenosis. * Mild - moderate mitral regurgitation. * Mild tricuspid regurgitation. * Moderate pulmonary hypertension. * Mild - moderate aortic stenosis. * Mild aortic regurgitation. * -- Conclusions -- * Aortic valve sclerosis moderate, without significant aortic valvular stenosis. Procedure Details * A complete two-dimensional transthoracic echocardiogram was performed (2D, M-mode, Doppler and color flow Doppler). Left Ventricle * The left ventricle is normal in size. * There is mild concentric left ventricular hypertrophy. * Diastolic dysfunction, Grade II (pseudonormalization pattern). * Ejection Fraction = 40-45%. * Left ventricular systolic function is mild to moderately reduced. * There is mild to moderate global hypokinesis of the left ventricle. Right Ventricle * The right ventricle is normal in size and function. * There is a pacemaker lead in the right ventricle. Atria * The left atrial size is normal. * Right atrial size is normal. * No ASD detected; PFO is not assessed. Mitral Valve * Calcified mitral apparatus. * No significant mitral valve stenosis. * There is mild to moderate mitral regurgitation. * An annuloplasty ring is noted in the mitral position. Tricuspid Valve * The tricuspid valve is normal. * There is mild tricuspid regurgitation. * Right ventricular systolic pressure is elevated at 40-50mmHg. Aortic Valve * Aortic valve sclerosis moderate, without significant aortic valvular stenosis. * Mild to moderate valvular aortic stenosis. * AV dimensionless index 0.37. * Mild aortic regurgitation. Pulmonic Valve * The pulmonic valve is not well visualized. * The pulmonary valve is inadequately visualized, but the Doppler data is adequate for interpretation. * There is no pulmonic valvular stenosis. * There is no significant pulmonary regurgitation. Great Vessels * The aortic root is normal size. Pericardium/Pleural * There is no pericardial effusion. Great Vessels * Normal inferior vena cava diameter and respiratory variation suggests normal central venous pressure. MMode 2D Measurements and Calculations IVSd 1.2 cm IVSs 1.4 cm LVIDd 4.0 cm LVIDs 3.2 cm LVPWd 1.2 cm LVPWs 1.4 cm IVS/LVPW 1.1 FS 20.5 % EDV(Teich) 71.5 ml ESV(Teich) 41.3 ml EF(Teich) 42.3 % EDV(cubed) 65.8 ml ESV(cubed) 33.1 ml EF(cubed) 49.7 % % IVS thick 11.9 % % LVPW thick 18.2 % LV mass(C)d 167.9 grams LV mass(C)dI 109.1 grams/m\S\2 LV mass(C)s 150.2 grams LV mass(C)sI 97.6 grams/m\S\2 SV(Teich) 30.3 ml SI(Teich) 19.7 ml/m\S\2 SV(cubed) 32.7 ml SI(cubed) 21.3 ml/m\S\2 Ao root diam 2.9 cm Ao root area 6.5 cm\S\2 LA dimension 3.4 cm LA/Ao 1.2 LVAd ap4 20.6 cm\S\2 LVLd ap4 6.7 cm EDV(MOD-sp4) 52.4 ml EDV(sp4-el) 54.0 ml LVAs ap4 15.8 cm\S\2 LVLs ap4 6.7 cm ESV(MOD-sp4) 31.2 ml ESV(sp4-el) 31.7 ml EF(MOD-sp4) 40.4 % EF(sp4-el) 41.2 % LVAd ap2 25.9 cm\S\2 LVLd ap2 7.7 cm EDV(MOD-sp2) 70.5 ml EDV(sp2-el) 73.7 ml LVAs ap2 18.1 cm\S\2 LVLs ap2 6.8 cm ESV(MOD-sp2) 40.1 ml ESV(sp2-el) 40.7 ml EF(MOD-sp2) 43.2 % EF(sp2-el) 44.7 % LVLd %diff 13.7 % EDV(MOD-bp) 64.1 ml LVLs %diff 1.3 % ESV(MOD-bp) 35.2 ml EF(MOD-bp) 45.1 % SV(MOD-sp4) 21.2 ml SI(MOD-sp4) 13.8 ml/m\S\2 SV(MOD-sp2) 30.4 ml SI(MOD-sp2) 19.8 ml/m\S\2 SV(MOD-bp) 28.9 ml SI(MOD-bp) 18.8 ml/m\S\2 SV(sp4-el) 22.2 ml SI(sp4-el) 14.5 ml/m\S\2 SV(sp2-el) 32.9 ml SI(sp2-el) 21.4 ml/m\S\2 Doppler Measurements and Calculations MV E max mirela 175.2 cm/sec MV A max mirela 169.1 cm/sec MV E/A 1.0 MV V2 max 188.1 cm/sec MV max PG 14.2 mmHg MV V2 mean 128.0 cm/sec MV mean PG 7.2 mmHg MV V2 VTI 60.4 cm MV P1/2t max mirela 191.0 cm/sec MV P1/2t 89.6 msec MVA(P1/2t) 2.5 cm\S\2 MV dec slope 624.4 cm/sec\S\2 MV dec time 0.30 sec Ao V2 max 183.4 cm/sec Ao max PG 13.5 mmHg Ao max PG (full) 11.7 mmHg AI max mirela 389.3 cm/sec AI max PG 60.6 mmHg AI dec slope 298.2 cm/sec\S\2 AI P1/2t 382.3 msec LV V1 max PG 1.8 mmHg LV V1 max 67.0 cm/sec MR max mirela 616.8 cm/sec MR max PG 152.2 mmHg MR mean mirela 466.3 cm/sec MR mean PG 94.7 mmHg MR VTI 223.3 cm TR max mirela 317.4 cm/sec
--- NOTE | 2016-07-05 20:33 | Hospitalist Progress Note ---
Hospitalist Progress Note Date of Service July 05, 2016. Subjective Pt evaluation today including: conversation w/ patient, conversation w/ family Patient feeling much better since admission, states that she wants to go home tomorrow. Nurse reports she ambulated without oxygen and pulse ox went to 88%, patient was asymptomatic with that. She has had some cough but no sputum. She is still smoking an occasional cigarette and has a [id number]-gpzm-year history. Her echocardiogram showed a slightly reduced LV function from previous today. Constitutional: No fever Respiratory: + cough, No shortness of breath Cardiovascular: No chest pain Abdomen: No constipation, No diarrhea, No nausea, No vomiting All Other Systems: Reviewed and Negative Objective Vital Signs Date Time Temp Pulse Resp B/P Pulse Ox O2 Delivery O2 Flow Rate FiO2 07/05/16 19:27 69 16 97 Nasal Cannula 2.0 07/05/16 16:00 Nasal Cannula 2.0 07/05/16 15:26 36.8 67 16 121/71 88 Room Air 07/05/16 14:15 70 20 96 Nasal Cannula 2.0 07/05/16 12:02 89 Room Air 07/05/16 11:34 36.8 60 16 145/68 93 Nasal Cannula 2.0 07/05/16 11:15 Nasal Cannula 2.0 07/05/16 07:30 Nasal Cannula 2.0 07/05/16 07:20 36.9 64 18 177/79 94 2.0 07/05/16 07:15 66 20 95 Nasal Cannula 2.0 07/05/16 04:09 36.6 65 18 166/74 95 Nasal Cannula 2.0 07/05/16 04:00 Room Air Humidified Oxygen 07/04/16 23:59 Room Air Humidified Oxygen 07/04/16 23:34 62 18 96 Nasal Cannula 2.0 07/04/16 21:45 36.6 71 22 143/66 94 Nasal Cannula 2.0 07/04/16 20:52 78 19 175/64 95 Nasal Cannula 2.0 Physical Exam General Appearance: WD/WN, no apparent distress Eyes: normal inspection, sclerae normal ENT: hearing grossly normal, pharynx normal Neck: no adenopathy, trachea midline Respiratory/Chest: no respiratory distress, no accessory muscle use, + decreased breath sounds (diminished throughout all lung hurley) Cardiovascular: regular rate, rhythm, no edema, no gallop, + systolic murmur ( 2 out of 6 heard best at left lower sternal border) Abdomen: normal bowel sounds, non tender, soft Extremities: normal inspection, no calf tenderness Neurologic/Psychiatric: alert, normal mood/affect, oriented x 3 Skin: normal color, warm/dry, no rash Laboratory Results Last 24 Hours Test 07/05/16 05:15 Sodium Level 141 mmol/L Potassium Level 4.1 mmol/L Chloride Level 102 mmol/L Carbon Dioxide Level 30 mmol/L Anion Gap 9.0 mmol/L Blood Urea Nitrogen 23 mg/dl Creatinine 1.40 mg/dl Est Creatinine Clear Calc Drug Dose 24.2 ml/min Estimated GFR () 40.2 Estimated GFR (Non- 34.7 BUN/Creatinine Ratio 16.5 Random Glucose 188 mg/dl Calcium Level 9.0 mg/dl Magnesium Level 2.2 mg/dl Troponin I < 0.015 ng/ml Assessment and Plan 81 y/o F Hx diastolic CHF, COPD, AF, CKD, pacer placed for complete heart block. Pt presents with a primary complaint of weakness. She began feeling ill 3 days prior but had refused medical attention. She was sleeping excessively for the past 2 days and had minimal by mouth intake; also developed dyspnea and a persistent cough. She was evaluated by her primary MD and instructed to attend the ER. The pt was noted to be hypotensive and hypoxic at triage. She was administered a bolus of fluid which served to correct her low BP. She denies fevers, CP, N/V /D. Initial CXR was read as COPD and early failure, however, her oxygen saturation did not appear to suffer as a consequence of a fluid bolus. 1) acute hypoxemic respiratory failure/acute bronchitis/COPD exacerbation - CXR with mild CHF findings- not clinically consistent with presentation and low BP. CT without contrast of chest was negative for pneumonia but showed emphysematous changes. Improving with antibiotics, nebs, and supplemental O2. -Continue Levaquin for 7 day course -Start IV Solu-Medrol and tapered down to by mouth prednisone -Wean oxygen off but may need two step prior to discharge 2) chronic combined systolic and diastolic CHF - does not normally take diuretics -echocardiogram with mildly reduced LV EF, reduced from previous echo in February. ECHO: * Mild - moderate left ventricular systolic dysfunction. LVEF 40-45% * Mild concentric left ventricular hypertrophy. * Left ventricular diastolic dysfunction-grade 2. * Mitral valve sclerosis with mild stenosis. * Mild - moderate mitral regurgitation. * Mild tricuspid regurgitation. * Moderate pulmonary hypertension. * Mild - moderate aortic stenosis. * Mild aortic regurgitation. * -- Conclusions -- * Aortic valve sclerosis moderate, without significant aortic valvular stenosis. -continue Coreg, aspirin, statin, Imdur COPD - treated as above with antibiotics and nebs - received an initial dose of steroids in ER - consider continuing of there is no PNM on CT or if dyspnea fails to improve CAD, Pacer for 3rd deg heart block - no evidence of ACS - no EKG changes or enzyme elevations. Pacer recently interrogated. Appreciate cardiology consultation CKD - creatinine is at 1.5 slightly above baseline of approximately 1.3 - received IVF -improved today to 1.4 -Follow PRP Prophylaxis-heparin Disposition-to home possibly tomorrow Full code
[2016-07-05] MEDS ORDERED: METHYLPREDNISOLONE IV 125 MG in SYRINGE 0 ML IV ONE (22:00)
[2016-07-06] VITALS (7 sets, daily range): BP systolic 128–197; BP diastolic 64–72; PULSE 62–71; TEMP 36.6–36.7; O2SAT 90–94
[2016-07-06] MEDS: ALBUT/IPRATROP 3MG/0.5MG NEB 3 ML VIAL INH SCH ×2 (02:38→06:49)
[2016-07-06] MEDS: HEPARIN SOD 5000 UNIT/0.5 ML CARP SQ SCH (05:32)
[2016-07-06] MEDS ORDERED: METHYLPREDNISOLONE IV 60 MG in SYRINGE 0 ML IV SCH (06:00)
[2016-07-06 06:48] LABS: COMPLETE YES; HEMATOCRIT 38.8 % (37-47); IG% 0.4 %; LYMPH % 12.8 %; LYMPH ABS # 1.38 K/uL (1.2-3.4); MEAN CELL VOLUME 84.3 fL (80-100); MEAN CORPUSCULAR HEMOGLOBIN 26.5 pg (25-34); MEAN CORPUSCULAR HGB CONC 31.4 g/dl (32-36); MEAN PLATELET VOLUME 10.7 fL (7.4-10.4); MONO % 0.6 %; NEUT % 86.2 %; PLATELET COUNT 223 K/uL (130-400); WHITE BLOOD COUNT 10.78 K/uL (4.8-10.8)
[2016-07-06 07:19] LABS: BUN/CREATININE RATIO 23.4 (10-20); CALCIUM 9.5 mg/dl (8.5-10.1); CREATININE 1.5 mg/dl (0.60-1.20); MAGNESIUM 2.1 mg/dl (1.8-2.4); POTASSIUM 4.3 mmol/L (3.5-5.1)
[2016-07-06] MEDS: CALCIUM CARBONATE 1250MG TAB PO SCH (07:24)
[2016-07-06] MEDS: ASPIRIN 81 MG ECTAB PO SCH (07:24)
[2016-07-06] MEDS: GABAPENTIN 400 MG CAP PO SCH (07:24)
[2016-07-06] MEDS: PANTOprazole SOD 40 MG TAB PO SCH (07:24)
[2016-07-06] MEDS: ISOSORBIDE MONONITRATE 30 MG TABCR PO SCH (07:25)
[2016-07-06] MEDS: CARVEDILOL 6.25 MG TAB PO SCH (07:25)
[2016-07-06] MEDS: LOVASTATIN 20 MG TAB PO SCH (07:25)
[2016-07-06] MEDS ORDERED: PRD20 PO (11:37)
[2016-07-06] MEDS ORDERED: LVQ750 PO (11:37)
--- NOTE | 2016-07-06 11:56 | Discharge Instructions ---
Discharge Instructions Date of Service July 06, 2016. Admission Reason for Admission: Chf, Copd Exacerbation Discharge Discharge Diagnosis / Problem: Acute bronchitis, COPD exacerbation Discharge Goals Goal(s): Improve disease control, Therapeutic intervention Activity Recommendations Activity Limitations: resume your previous activity . Instructions / Follow-Up Instructions / Follow-Up You were admitted with shortness of breath and found to have low oxygen levels and a low blood pressure. This was thought to be secondary to acute bronchitis and dehydration. You were given IV fluids and your blood pressure improved. You were started on steroids, antibiotics, and given oxygen and had improvement of your breathing. You will be discharged to home without oxygen as you no longer needed it. You should finish out a course of antibiotics as directed as well as a course of prednisone. You absolutely should not smoke cigarettes or be exposed to smoke. You were seen by Cardiology who did not feel that your symptoms were caused by anything to do with your heart. The ultrasound of your heart did show a slightly worse function and you should follow up with Dr. Mcgee about this within 2-3 weeks. Incidentally there were some bacteria growing out of your urine but this may be insignificant as you were not having any urinary symptoms. Nonetheless, the antibiotic you are on for your bronchitis will also treat a urinary tract infection. Please follow up with your PCP within 1 week. Your final urine and blood culture results should be back in the next couple of days and your PCP can follow up on these results. Current Hospital Diet Patient's current hospital diet: Low Sodium Diet (2gm Na) Discharge Diet Recommended Diet: Low Sodium Diet (2gm Na) Procedures Procedures Performed: Chest CT Chest xray ECHOCARDIOGRAM Pending Studies Studies pending at discharge: yes List of pending studies: Urine culture Final Blood culture results Medical Emergencies . Who to Call and When: Medical Emergencies: If at any time you feel your situation is an emergency, please call 911 immediately. . Non-Emergent Contact Non-Emergency issues call your: Primary Care Provider Call Non-Emergent contact if: you have a fever, you have any medication questions you have worsening shortness of breath, wheezing, or coughing, or worsening fatigue. . . "Provider Documentation" section prepared by Nicki Teague. . VTE Core Measure Inpt VTE Proph given/why not?: Unfractionated heparin SQ
[2016-07-06] MEDS ORDERED: LEVOFLOXACIN 750 MG TAB PO SCH (19:00)
--- NOTE | 2016-07-28 14:15 | Discharge Summary ---
Discharge Summary Date of Service July 06, 2016. Discharge Summary Admission Date: July 04, 2016 at 20:31 Discharge Date: July 06, 2016 Discharge Disposition: Home Principal Diagnosis: Acute exacerbation COPD, Acute hypoxemic respiratory failure Problems/Secondary Diagnoses: Chronic combined systolic and diastolic CHF COPD Atrial Fibrillation CKD stage III Pacemaker insitu- complete heart block. LVH Mitral valve sclerosis with mild stenosis Mild - moderate mitral regurgitation Mild tricuspid regurgitation Moderate pulmonary hypertension Mild aortic regurgitation Aortic valve sclerosis moderate, without significant aortic valvular stenosis. CAD Immunizations: Have You Had Influenza Vaccine: Yes Influenza Vaccine Date: Nov 08, 2011 History of Tetanus Vaccine?: No History of Pneumococcal: No Pneumococcal Date: Jan 01, 2009 History of Hepatitis B Vaccine: No Procedures: Chest CT: 1. Moderate emphysematous change with pulmonary vascular congestion. 2. Chronic pleural and parenchymal change left lung base CHEST ONE VIEW PORTABLE CLINICAL HISTORY: COPD exacerbation dyspnea COMPARISON STUDY: 02/22/2016 FINDINGS: Emphysematous change. Early congestive failure. Prior median sternotomy. Bipolar cardiac pacemaker. IMPRESSION: Early congestive failure superimposed upon emphysematous change ECHO: * Mild - moderate left ventricular systolic dysfunction. * Mild concentric left ventricular hypertrophy. * Left ventricular diastolic dysfunction. * Mitral valve sclerosis with mild stenosis. * Mild - moderate mitral regurgitation. * Mild tricuspid regurgitation. * Moderate pulmonary hypertension. * Mild - moderate aortic stenosis. * Mild aortic regurgitation. * -- Conclusions -- Aortic valve sclerosis moderate, without significant aortic valvular stenosis Consultations: Cardiology Medication Reconciliation New Medications: Prednisone (Prednisone) 20 Mg Tab 60 MG PO DAILY, #12 TAB x 2 days then 40mg daily x 2 days then 20mg daily x 2 days then stop Levofloxacin (Levofloxacin) 750 Mg Tab 750 MG PO Q48H, #3 TAB Continued Medications: Aspirin (Aspirin Ec) 81 Mg Tab 81 MG PO DAILY Calcium Carbonate (Calcium 600) 600 Mg Tab 1 TAB PO BID Carvedilol (Carvedilol) 6.25 Mg Tab 6.25 MG PO BID for 30 Days, #60 TAB Gabapentin (Neurontin) 400 Mg Cap 400 MG PO TID, CAP Ipratropium-Albuterol (Combivent Respimat) 1 Aer Aer 1 PUFF INH PRN for SOB/Wheezing, #4 Ipratropium-Albuterol (Duoneb) 3 Ml Nebu 1 TREATMENT INH Q4H PRN for SOB/Wheezing, INHA Isosorbide Mononitrate (Isosorbide Mononitrate ER) 30 Mg Tabcr 30 MG PO DAILY, #30 Lovastatin (Mevacor) 40 Mg Tab 40 MG PO DAILY, #30 Pantoprazole (Pantoprazole Sodium) 40 Mg Tab 40 MG PO DAILY, #30 Referrals At Discharge Follow up Referrals: Beauty Operator Apprentice Referral - Within 2 Weeks with Nick Mcgee M.D. Family Practice Referral - Within 1-2 Weeks with Crystal Mcguire C.R.N.P Discharge Exam Physical Exam General Appearance: WD/WN, no apparent distress Eyes: normal inspection, sclerae normal ENT: hearing grossly normal, pharynx normal Neck: no adenopathy, trachea midline Respiratory/Chest: no respiratory distress, no accessory muscle use, + decreased breath sounds (diminished throughout all lung hurley but improved from previous) Cardiovascular: regular rate, rhythm, no edema, no gallop, + systolic murmur ( 2 out of 6 heard best at left lower sternal border) Abdomen: normal bowel sounds, non tender, soft Extremities: normal inspection, no calf tenderness Neurologic/Psychiatric: alert, normal mood/affect, oriented x 3 Skin: normal color, warm/dry, no rash Review of Systems: Constitutional: No fever Eyes: No problem reported ENT: No problem reported Respiratory: No problem reported Cardiovascular: No problem reported Abdomen: No problem reported Musculoskeletal: No problem reported Genitourinary - Female: No problem reported Neurologic: No problem reported Psychiatric: No problem reported Endocrine: No problem reported Hematologic / Lymphatic: No problem reported Integumentary: No problem reported Hospital Course 81 y/o F Hx diastolic CHF, COPD, AF, CKD, pacer placed for complete heart block. Pt presents with a primary complaint of weakness. She began feeling ill 3 days prior but had refused medical attention. She was sleeping excessively for the past 2 days and had minimal by mouth intake; also developed dyspnea and a persistent cough. She was evaluated by her primary MD and instructed to attend the ER. The pt was noted to be hypotensive and hypoxic at triage. She was administered a bolus of fluid which served to correct her low BP. She denies fevers, CP, N/V /D. Initial CXR was read as COPD and early failure, however, her oxygen saturation did not appear to suffer as a consequence of a fluid bolus. 1) acute hypoxemic respiratory failure/acute bronchitis/COPD exacerbation - CXR with mild CHF findings- not clinically consistent with presentation and low BP. CT without contrast of chest was negative for pneumonia but showed emphysematous changes. Improving with antibiotics, nebs, and supplemental O2. -Continue Levaquin for 7 day course -Started IV Solu-Medrol and tapered down to by mouth prednisone for discharge -Weaned off oxygen 2) chronic combined systolic and diastolic CHF - does not normally take diuretics -echocardiogram with mildly reduced LV EF, reduced from previous echo in February. ECHO: * Mild - moderate left ventricular systolic dysfunction. LVEF 40-45% * Mild concentric left ventricular hypertrophy. * Left ventricular diastolic dysfunction-grade 2. * Mitral valve sclerosis with mild stenosis. * Mild - moderate mitral regurgitation. * Mild tricuspid regurgitation. * Moderate pulmonary hypertension. * Mild - moderate aortic stenosis. * Mild aortic regurgitation. * -- Conclusions -- * Aortic valve sclerosis moderate, without significant aortic valvular stenosis. -continue Coreg, aspirin, statin, Imdur -Cardiology did not feel her presentation was consistent with acute CHF -LV function slightly reduced from previous -f/u with Cardiology in 2-3 weeks CAD, Pacer for 3rd deg heart block - no evidence of ACS - no EKG changes or enzyme elevations. Pacer recently interrogated. Appreciate cardiology consultation CKD - creatinine is at 1.5 slightly above baseline of approximately 1.3 - received IVF -stable at 1.5 on day of discharge -Follow PRP as outpatient -avoid nephrotoxins and renally dose all meds Prophylaxis-heparin Disposition-to home Full code Total Time Spent: Greater than 30 minutes This includes examination of the patient, discharge planning, medication reconciliation, and communication with other providers. Discharge Instructions Please refer to the electronic Patient Visit Report (Discharge Instructions) for additional information. Follow-Up PCP within 1 week Cardiology within 2-3 weeks Additional Copies To Crystal Mcguire C.R.N.P; Nick Mcgee M.D.
== END 2016-07-06 12:29 | disposition home or self-care (01) | DRG 190 ==
LOC: ENRESERVDT → ENRESERVTM → C.EDB 17:43 → C.2T 20:31
PROVIDERS: ADMIT Internal Medicine; ATTEND Family Medicine
DX: J44.1 Chronic obstructive pulmonary disease with (acute) exacerbation (principal); J96.01 Acute respiratory failure with hypoxia; I50.42 Chronic combined systolic (congestive) and diastolic (congestive) heart failure; I44.2 Atrioventricular block, complete; I42.9 Cardiomyopathy, unspecified; J44.0 Chronic obstructive pulmonary disease with (acute) lower respiratory infection; E86.0 Dehydration; J20.9 Acute bronchitis, unspecified; I25.10 Atherosclerotic heart disease of native coronary artery without angina pectoris; N18.3 Chronic kidney disease, stage 3 (moderate); R26.81 Unsteadiness on feet; E11.9 Type 2 diabetes mellitus without complications; I48.0 Paroxysmal atrial fibrillation; Z95.1 Presence of aortocoronary bypass graft; Z86.73 Personal history of transient ischemic attack (TIA), and cerebral infarction without residual deficits; Z86.79 Personal history of other diseases of the circulatory system; Z87.891 Personal history of nicotine dependence; Z86.69 Personal history of other diseases of the nervous system and sense organs; Z87.19 Personal history of other diseases of the digestive system; Z95.0 Presence of cardiac pacemaker; Z79.82 Long term (current) use of aspirin; Z79.899 Other long term (current) drug therapy

== ENCOUNTER → 2016-07-29 | Outpatient (CLI) | payer OTHER ==
[~2016-07-29] MED LIST changes: +LVQ750 PO; +PRD20 PO
[2016-07-29 18:56] LABS: BLOOD UREA NITROGEN 29 mg/dl (7-18); BUN/CREATININE RATIO 20.6 (10-20); CALCIUM 9.2 mg/dl (8.5-10.1); CARBON DIOXIDE 29 mmol/L (21-32); CHLORIDE 101 mmol/L (98-107); GLUCOSE 139 mg/dl (70-99); POTASSIUM 4.2 mmol/L (3.5-5.1); SODIUM 138 mmol/L (136-145)
[2016-07-30 07:31] LABS: ESTIMATED AVERAGE GLUCOSE 163 mg/dl; HA1C FLAG Normal (Normal)
== END | disposition home or self-care (01) ==
LOC: C.LABPVFM 13:27
PROVIDERS: ATTEND Nurse Practitioner
DX: R39.9 Unspecified symptoms and signs involving the genitourinary system (principal); N39.0 Urinary tract infection, site not specified; E11.9 Type 2 diabetes mellitus without complications; J44.9 Chronic obstructive pulmonary disease, unspecified

== ENCOUNTER → 2016-11-25 | Outpatient (CLI) | payer OTHER ==
[~2016-11-25] MED LIST changes: -PANT40TA2 PO; +PRT/40 PO
[2016-11-25 17:54] LABS: BLOOD UREA NITROGEN 19 mg/dl (7-18); BUN/CREATININE RATIO 14.8 (10-20); CALCIUM 9.3 mg/dl (8.5-10.1); CARBON DIOXIDE 31 mmol/L (21-32); CHLORIDE 104 mmol/L (98-107); GLUCOSE 178 mg/dl (70-99); POTASSIUM 4.1 mmol/L (3.5-5.1); SODIUM 140 mmol/L (136-145)
[2016-11-26 07:49] LABS: ESTIMATED AVERAGE GLUCOSE 157 mg/dl; HA1C FLAG Normal (Normal)
== END | disposition home or self-care (01) ==
LOC: C.LABPVFM 13:47
PROVIDERS: ATTEND Nurse Practitioner
DX: E11.42 Type 2 diabetes mellitus with diabetic polyneuropathy (principal)

== ENCOUNTER 2017-02-07 14:43 | Inpatient (IN) | payer OTHER ==
[~2017-02-07] VITALS: Ht 154.9 cm; Wt 57.7 kg
[~2017-02-07 14:43] MED LIST changes: -CALC600T PO; +GABA-1220 PO; -GABA1CAP5 PO; +IPRA-64 INH; -IPRASOL4 INH; +PANT40TA2 PO; -PRT/40 PO
[2017-02-07] MEDS ORDERED: CALC600T PO (14:44)
--- NOTE | 2017-02-07 16:35 | EMERGENCY ROOM VISIT NOTE ---
History Report prepared by Chaim: Malvin Myers Under the Supervision of: Dr. Gautam Jimenez M.D. First contact with patient: 16:14 Chief Complaint: FALL Stated Complaint: FALL;BACK AND HIP PAIN,HAND IS SWOLLEN History of Present Illness The patient is an 81 year old white female with a past medical history of hypertension, atrial fibrillation, CVA, CKD, heart disease, implantation of pacemaker who presents to the ED with a cc of a sudden fall occurring 5 days ago. Positive back pain, left hand pain. Negative loss of consciousness, lightheadedness, heart racing. She states that she just fell and was not feeling poorly before falling. The patient says that she struck her buttock on the carpet in the house. She is not sure if she hit her head. Per the patient's significant other, the patient hit her hands on the way down. The patient notes that she remembers the entire incident. She takes a baby Aspirin daily but no other blood thinners. Source of History: patient, family Onset: 5 days ago Position: other (global - fall) Quality: other (mechanical) Timing: other (sudden) Associated Symptoms: + back pain, No LOC Note: Associated symptoms: Left hand pain. Negative lightheadedness, heart racing. Review of Systems See HPI for pertinent positives and negatives. A total of ten systems were reviewed and were otherwise negative. Past Medical & Surgical Medical Problems: (1) AORTOCORONARY BYPASS (2) ATRIAL FIBRILLATION (3) CHRONIC KIDNEY DISEASE, STAGE III (MODERATE) (4) CHRONIC SYSTOLIC HRT FAILURE (5) CORON ATHEROSCLER NOS TYPE VESSEL, [place] OR GRAFT (6) CVA (7) Implantation of cardiac pacemaker (8) Lower GI bleed (9) PNEUMONIA, ORGANISM NOS (10) Seizure (11) Subdural hematoma Family History Heart disease Social History Smoking Status: Former Smoker Alcohol Use: none Drug Use: none Marital Status: Housing Status: lives alone Occupation Status: retired Current/Historical Medications Scheduled Aspirin (Aspirin Ec), 81 MG PO DAILY Calcium Carbonate (Calcium 600), 1 TAB PO BID Carvedilol (Coreg), 6.25 MG PO BID Furosemide (Furosemide), 40 MG PO DAILY Gabapentin (Gabapentin), 400 MG PO BID Isosorbide Mononitrate Ext Rel (Imdur Ext Rel), 30 MG PO DAILY Lovastatin (Mevacor), 40 MG PO DAILY Nortriptyline HCl (Nortriptyline HCl), 20 MG PO HS Pantoprazole (Pantoprazole Sodium), 40 MG PO DAILY Valsartan (Valsartan), 40 MG PO BID Scheduled PRN Ipratropium-Albuterol (Combivent Respimat), 1 PUFF INH for SOB/Wheezing Ipratropium-Albuterol (Duoneb), 1 TREATMENT INH Q4H PRN for SOB/Wheezing Allergies Coded Allergies: Cephalosporins (Verified Allergy, Severe, TONGUE SWELLING WITH KEFLEX, ) Penicillins (Verified Allergy, Severe, HIVES, SOB, 02/07/17) Tamsulosin (Verified Allergy, Severe, SHORTNESS OF BREATH, 02/07/17) Butalbital (Verified Allergy, Intermediate, SHORTNESS OF BREATH, 02/07/17) Levetiracetam (Verified Allergy, Intermediate, RASH, 02/07/17) Sulfa Antibiotics (Verified Allergy, Unknown, "SULFA DRUGS" - UNKNOWN, ) Morphine (Verified Adverse Reaction, Unknown, hallucinations, 02/07/17) Physical Exam Vital Signs Date Time Temp Pulse Resp B/P (MAP) Pulse Ox O2 Delivery O2 Flow Rate FiO2 02/07/17 23:40 87 16 146/97 96 Nasal Cannula 2.0 02/07/17 21:55 89 18 96 Nasal Cannula 2.0 02/07/17 21:54 91 18 133/102 87 Room Air 02/07/17 20:00 86 16 173/123 96 Nasal Cannula 02/07/17 19:00 92 23 215/105 92 Nasal Cannula 2.0 02/07/17 18:02 96 20 208/116 93 Nasal Cannula 2.0 02/07/17 17:40 103 02/07/17 17:20 98 24 216/126 98 Nasal Cannula 2.0 02/07/17 17:19 98 Nasal Cannula 2.0 02/07/17 14:58 36.8 85 20 186/103 95 Room Air Physical Exam GENERAL: Awake, alert, well-appearing, NAD HENT: Normocephalic, atraumatic. EYES: Normal conjunctiva. Sclera non-icteric. NECK: Supple. No nuchal rigidity. FROM. RESPIRATORY: CTAB, no rhonchi, wheezing, crackles CARDIAC: RRR, no MRG. Device in left chest. ABDOMEN: Soft, some epigastric and right abdominal pain, BS+ MSK: Some sternal tenderness, no LE edema. Midline upper lumbar pain. NEURO: GCS 15, CN 2-12 intact, moves all 4s on command SKIN: No rash or jaundice noted. Medical Decision & Procedures ER Provider Diagnostic Interpretation: Radiology results as stated below per my review and radiologist interpretation: CT OF THE HEAD WITHOUT CONTRAST CLINICAL HISTORY: Fall. COMPARISON STUDY: Head CT February 22, 2016. TECHNIQUE: Helical axial images of the head were obtained without IV contrast. Automated exposure control was utilized for the study. A dose lowering technique was utilized adhering to the principles of ALARA. FINDINGS: No acute intracranial hemorrhage, midline shift or mass effect is present. Ventricular system is stable. Basilar cisterns are patent. There are no extra axial collections. White matter hypodensities are unchanged and suggest small vessel disease. Encephalomalacia within the superior left cerebellar hemisphere is unchanged. There is no calvarial fracture. Exam is mildly compromised by motion artifact. A previous right sided silvano hole is noted. IMPRESSION: 1. No acute intracranial findings. 2. No calvarial fracture. Electronically signed by: Sonido Issa M.D 02/07/2017 6:49 PM Dictated Date/Time: 02/07/2017 6:46 PM CHEST ONE VIEW PORTABLE CLINICAL HISTORY: 81 years-old Female presenting with EVALUATE FOR TRAUMA/INJURY. TECHNIQUE: Portable upright AP view of the chest was obtained. COMPARISON: 07/04/2016. FINDINGS: Left subclavian pacer with leads to the right atrium and right ventricular apex. Median sternotomy wires and prosthetic aortic valve noted. Prominence of the main pulmonary artery. Atherosclerosis of the aortic arch. Cardiac silhouette mildly enlarged. Hazy bibasilar opacities suggested. Trace bilateral pleural effusions may be present. No pneumothorax. Degenerative changes of the thoracic spine. Upper abdomen normal. IMPRESSION: 1. Mild cardiomegaly with hazy bibasilar opacities, which could suggest developing pulmonary edema. 2. Trace bilateral pleural effusions suspected. Electronically signed by: Omer Kate M.D. 02/07/2017 5:33 PM Dictated Date/Time: 02/07/2017 5:32 PM (CHEST) THORAX WITH CLINICAL HISTORY: 81 years-old Female presenting with Trauma, fall 5 days ago, back pain. TECHNIQUE: Multidetector CT imaging of the chest was performed after the administration of intravenous contrast. IV contrast: 94 mL of Optiray 320. A dose lowering technique was used consistent with the principles of ALARA (as low as reasonably achievable). COMPARISON: 07/04/2016. CT DOSE (mGy.cm): The estimated cumulative dose is 1805.94 inclusive of multiple additional CT scans. FINDINGS: Speed Belt Sander topogram: Left subclavian pacer with leads to the right atrium and right ventricular apex. Median sternotomy wires and prosthetic valve. Cholecystectomy clips. Total right hip arthroplasty. Two screw fixation of the left femoral neck. On soft tissue windows, multiple subcentimeter nodules in the thyroid gland. Multiple prominent mediastinal lymph nodes in the precarinal and subcarinal regions. These measure up to 8 mm in the short axis. Prominent right hilar lymph nodes also noted. Atherosclerosis of the aorta. Main pulmonary artery mildly enlarged measuring 3.3 cm in transverse dimension. Left subclavian pacer with leads to the right atrium and right ventricular apex. Normal heart size. Coronary artery calcification. Prosthetic mitral valve. Trace right pleural effusion. No pericardial effusion. Cholecystectomy clips. No abdominal free fluid. On lung windows, dependent groundglass opacity at the right lung base. Smooth interlobular septal thickening. Solid peripheral 5 mm nodule in the right upper lobe (series 12 image 111). Minimal bandlike opacities at the left lung base likely atelectasis. Large airways patent. On bone windows, mild degenerative changes of the thoracic spine. No acute osseous injury. Osteopenia. Median sternotomy. IMPRESSION: 1. No acute intrathoracic injury. 2. Findings suggest developing pulmonary edema. 3. Prominent mediastinal and right hilar lymph nodes, possibly reactive or related to congestive changes. 4. Main pulmonary arterial enlargement could suggest pulmonary hypertension. 5. Solid 5 mm nodule in the right upper lobe. Follow-up per Gloria Society 2017 recommendations below. Please refer to below summary of Fleischner Society 2017 recommendations for follow-up of incidental CT nodules (Malika Shah et al. Guidelines for management of incidental pulmonary nodules detected on CT images: From the Fleischner Society 2017. Radiology 2017; 284: 228-243.) SOLID NODULES Single nodule; size < 6 mm * Low risk patients: No routine follow-up * High risk patients: Optional CT at 12 months Single nodule; size 6-8 mm * Low risk patients: CT at 6-12 months, then consider CT at 18-24 months * High risk patients: CT at 6-12 months, then at 18-24 months Single nodule; size > 8 mm * Either low or high risk patients: Considered CT at 3 months, PET/CT, or tissue sampling Multiple nodules; size < 6 mm * Low risk patients: No routine follow up * High risk patients: Optional CT at 12 months Multiple nodules; size 6-8 mm * Low risk patients: CT at 3-6 months, then consider CT at 18-24 months * High risk patients: CT at 3-6 months, then at 18-24 months Multiple nodules; size > 8 mm * Low risk patients: CT at 3-6 months, then consider at 18-24 months * High risk patients: CT at 3-6 months, then at 18-24 months Note: These guidelines apply to incidental nodules. These guidelines do not apply to patients younger than 35 years, immunocompromised patients, or patients with cancer. * Low risk patients: Minimal or absent history of smoking and/or other known risk factors * High risk patients: History of smoking, exposure to other carcinogens, emphysema, fibrosis, upper lobe location, family history of lung cancer, etc. * If a nodule up to 8 mm is partly solid or is ground glass, further follow-up is required after 24 months to exclude possible slow growing adenocarcinoma. SUBSOLID NODULES Single ground-glass nodule * Nodule size < 6 mm: No routine follow-up * Nodule size > or = 6 mm: CT at 6-12 months to confirm persistence, then CT every 2 years until 5 years Single part-solid nodule * Nodule size < 6 mm: No routine follow-up * Nodules size > or = 6 mm: CT at 3-6 months to confirm persistence. If unchanged and solid component remains < 6 mm, annual CT should be performed for 5 years Multiple nodules * Nodule size < 6 mm: CT at 3-6 months. If stable, consider CT at 2 and 4 years. * Nodules size > or = 6 mm: CT at 3-6 months. Subsequent management based on the most suspicious nodule(s) Electronically signed by: Omer Kate M.D. 02/07/2017 6:56 PM Dictated Date/Time: 02/07/2017 6:[address] OF THE CERVICAL SPINE WITHOUT CONTRAST CLINICAL HISTORY: EVALUATE FOR TRAUMA/INJURY COMPARISON STUDY: Cervical spine CT August 08, 2012. TECHNIQUE: Helical axial images of the cervical spine were obtained without IV contrast. Sagittal and coronal reconstructions were viewed. A dose lowering technique was utilized adhering to the principles of ALARA. FINDINGS: Alignment of the cervical spine is anatomic. Craniocervical junction is intact. There is no acute cervical spine fracture. There is no prevertebral edema. There is severe multilevel facet arthrosis and moderate multilevel degenerative disc disease. Visualized portions of the lung apices demonstrate interlobular septal thickening consistent with interstitial pulmonary edema. A few thyroid nodules are noted. IMPRESSION: 1. No acute cervical spine fracture or subluxation. 2. Mild interstitial pulmonary edema within visualized portions of the lung apices. Electronically signed by: Sonido Issa M.D. 02/07/2017 6:53 PM Dictated Date/Time: 02/07/2017 6:49 PM ABD/PELVIS IV CONTRAST ONLY CLINICAL HISTORY: 81 years-old Female presenting with s/p fall; 5 days ago, significant L spine and ab pain. TECHNIQUE: Multidetector CT of the abdomen and pelvis was performed after the administration of intravenous contrast. IV contrast: 94 mL of Optiray 320. A dose lowering technique was used consistent with the principles of ALARA (as low as reasonably achievable). COMPARISON: 10/24/2014. CT DOSE (mGy.cm): The estimated cumulative dose is 1805.94 mGy.cm. FINDINGS: Speed Belt Sander topogram: Left subclavian pacer with leads to the right atrium and right ventricular apex. Median sternotomy wires with prosthetic mitral valve. Cholecystectomy clips. Total right hip arthroplasty. Screw fixation of the left femoral neck. Lung bases: Interlobular septal thickening with minimal groundglass opacities and trace pleural effusions. Normal heart size. Partially visualized pacer lead. Coronary artery calcification. Liver: Mildly nodular contour of the liver. Perfusional variation along the fissure for the falciform ligament. No focal lesion. Patent hepatic vasculature. Biliary: Mild biliary ductal prominence likely a reservoir effect in the post cholecystectomy state. Gallbladder surgically absent. Pancreas: Mild parenchymal atrophy. Prominence of the pancreatic duct, which may have been present on prior exam. No gross evidence of an obstructing pancreatic head mass Spleen: Normal. Adrenal glands: Normal. Kidneys and ureters: Focal cortical scarring at the lateral aspect of the lower pole the left kidney with a similar smaller defect in the right kidney. Possibly reflux nephropathy or prior infarct, infection, or injury. Renal vascular calcification. No nephrolithiasis. No hydronephrosis. Ureters normal. Bladder: Normal. Pelvic organs: Uterus surgically absent. No adnexal masses. Bowel: Diverticulosis of the sigmoid colon. Moderate stool burden. No bowel obstruction. No gross evidence of bowel wall thickening to suggest bowel injury. No infiltration of the mesentery. Peritoneal cavity: No free fluid or intraperitoneal gas. Lymph nodes: No enlarged lymph nodes in the abdomen or pelvis. Vasculature: Atherosclerosis of the normal caliber abdominal aorta. IVC patent. Retroaortic left renal vein. Clips noted in the region of the right common femoral vein. Abdominal wall: No focal infiltration to suggest contusion. Musculoskeletal: Postsurgical changes of total right hip arthroplasty. No hardware complication is apparent within the visualized portion of the prosthesis. 3 lag screw fixation of the left femoral neck. No acute osseous injury. Degenerative changes of the spine. IMPRESSION: 1. No acute intra-abdominal injury. 2. Findings suggest early pulmonary edema. 3. Diverticulosis. 4. Total right hip arthroplasty and left femoral neck screw fixation. No acute osseous injury. Electronically signed by: Omer Kate M.D. 02/07/2017 7:03 PM Dictated Date/Time: 02/07/2017 6:48 PM Laboratory Results 02/07/17 17:36 Red Blood Count 5.10, Mean Corpuscular Volume 84.9, Mean Corpuscular Hemoglobin 27.8, Mean Corpuscular Hemoglobin Concent 32.8, Mean Platelet Volume 10.6, Neutrophils (%) (Auto) 61.9, Lymphocytes (%) (Auto) 32.4, Monocytes (%) (Auto) 3.2, Eosinophils (%) (Auto) 2.0, Basophils (%) (Auto) 0.3, Neutrophils # (Auto) 6.21, Lymphocytes # (Auto) 3.25, Monocytes # (Auto) 0.32, Eosinophils # (Auto) 0.20, Basophils # (Auto) 0.03 02/07/17 17:36 Test 02/07/17 17:36 02/07/17 20:02 White Blood Count 10.03 K/uL (4.8-10.8) Red Blood Count 5.10 M/uL (4.2-5.4) Hemoglobin 14.2 g/dL (12.0-16.0) Hematocrit 43.3 % (37-47) Mean Corpuscular Volume 84.9 fL (80-100) Mean Corpuscular Hemoglobin 27.8 pg (25-34) Mean Corpuscular Hemoglobin Concent 32.8 g/dl (32-36) Platelet Count 162 K/uL (130-400) Mean Platelet Volume 10.6 fL (7.4-10.4) Neutrophils (%) (Auto) 61.9 % Lymphocytes (%) (Auto) 32.4 % Monocytes (%) (Auto) 3.2 % Eosinophils (%) (Auto) 2.0 % Basophils (%) (Auto) 0.3 % Neutrophils # (Auto) 6.21 K/uL (1.4-6.5) Lymphocytes # (Auto) 3.25 K/uL (1.2-3.4) Monocytes # (Auto) 0.32 K/uL (0.11-0.59) Eosinophils # (Auto) 0.20 K/uL (0-0.5) Basophils # (Auto) 0.03 K/uL (0-0.2) RDW Standard Deviation 47.1 fL (36.4-46.3) RDW Coefficient of Variation 15.3 % (11.5-14.5) Immature Granulocyte % (Auto) 0.2 % Immature Granulocyte # (Auto) 0.02 K/uL (0.00-0.02) Prothrombin Time 9.9 SECONDS (9.0-12.0) Prothromb Time International Ratio 0.9 (0.9-1.1) Activated Partial Thromboplast Time 28.0 SECONDS (21.0-31.0) Partial Thromboplastin Ratio 1.1 Anion Gap 8.0 mmol/L (3-11) Est Creatinine Clear Calc Drug Dose 34.9 ml/min Estimated GFR () 60.3 Estimated GFR (Non- 52.1 BUN/Creatinine Ratio 15.9 (10-20) Calcium Level 9.1 mg/dl (8.5-10.1) Total Bilirubin 0.5 mg/dl (0.2-1) Direct Bilirubin 0.1 mg/dl (0-0.2) Aspartate Amino Transf (AST/SGOT) 16 U/L (15-37) Alanine Aminotransferase (ALT/SGPT) 14 U/L (12-78) Alkaline Phosphatase 87 U/L (45-117) Pro-B-Type Natriuretic Peptide 9300 pg/ml (0-1800) Total Protein 8.1 gm/dl (6.4-8.2) Albumin 3.6 gm/dl (3.4-5.0) Urine Color YELLOW Urine Appearance CLEAR (CLEAR) Urine pH 7.0 (4.5-7.5) Urine Specific [place] 1.021 (1.000-1.030) Urine Protein 1+ (NEG) Urine Glucose (UA) NEG (NEG) Urine Ketones NEG (NEG) Urine Occult Blood NEG (NEG) Urine Nitrite POS (NEG) Urine Bilirubin NEG (NEG) Urine Urobilinogen NEG (NEG) Urine Leukocyte Esterase NEG (NEG) Urine WBC (Auto) 1-5 /hpf (0-5) Urine RBC (Auto) 0-4 /hpf (0-4) Urine Hyaline Casts (Auto) 1-5 /lpf (0-5) Urine Epithelial Cells (Auto) >30 /lpf (0-5) Urine Bacteria (Auto) 1+ (NEG) Laboratory results reviewed by me Medications Administered Medications (Trade) Dose Ordered Sig/[place]anning Route Start Time Stop Time Status Last Admin Dose Admin Ondansetron HCl (Zofran Inj) 4 mg NOW STAT IV 02/07/17 17:23 02/07/17 17:25 DC 02/07/17 17:34 4 MG Fentanyl Citrate (Fentanyl Inj) 75 mcg NOW ONCE IV 02/07/17 17:30 02/07/17 17:31 DC 02/07/17 17:35 75 MCG Albuterol/ Ipratropium (Duoneb) 3 ml ONE STAT INH 02/07/17 17:23 02/07/17 17:25 DC 02/07/17 17:34 3 ML Fentanyl Citrate (Fentanyl Inj) 75 mcg NOW ONCE IV 02/07/17 19:15 02/07/17 19:16 DC 02/07/17 19:15 75 MCG Valsartan (Diovan Tab) 40 mg ONE STAT PO 02/07/17 19:08 02/07/17 19:09 DC 02/07/17 20:13 40 MG Furosemide (Lasix Inj) 40 mg NOW STAT IV 02/07/17 19:08 12/26/17 19:09 DC 02/07/17 19:15 40 MG Ciprofloxacin (Ciprofloxacin Tab) 500 mg NOW ONCE PO 02/07/17 20:30 02/07/17 20:38 DC 02/07/17 20:44 500 MG Acetaminophen/ Hydrocodone Bitart (Frederic 5/325 Tab) 1 tab ONE STAT PO 02/07/17 20:32 02/07/17 20:33 DC 02/07/17 20:43 1 TAB Docusate Sodium (coLACE CAP) 100 mg STK-MED ONCE .ROUTE 02/07/17 21:13 02/07/17 21:14 DC 02/07/17 21:22 100 MG Albuterol/ Ipratropium (Duoneb) 3 ml NOW STAT INH 02/07/17 22:05 02/07/17 22:06 DC 02/07/17 22:10 3 ML Acetaminophen (Tylenol Tab) 650 mg Q4H PRN PO 02/07/17 23:45 03/09/17 23:44 02/08/17 13:20 650 MG Polyethylene (Miralax Powder Packet) 17 gm DAILY PRN PO 02/07/17 23:45 03/09/17 23:44 02/08/17 14:59 17 GM ECG Indication: other (fall) Rate (beats per minute): 95 Rhythm: normal sinus Findings: Q waves (Anterior), T-wave inversion (Lateral), other (normal intervals, appears may have a little left bundle, elevation in V3 and V4) Comparison ECG Date: compoared to 07/04/16, T-wave inversions are old, anterior Q-waves are present in old too ED Course 162: The patient was evaluated in room C12B. A complete history and physical exam was performed. 1920: I reevaluated the patient and she is resting. 1944: We are seeing if the patient will be suitable for rehab. Medical Decision The patient is an 81 year old white female with a past medical history of hypertension, atrial fibrillation, CVA, CKD, heart disease, implantation of pacemaker who presents to the ED with a cc of a sudden fall occurring 5 days ago. Positive back pain, left hand pain. Negative loss of consciousness, lightheadedness, heart racing. Differential diagnosis: Etiologies such as fracture, dislocation, intra-abdominal, pneumothorax, intrathoracic , intracranial, neurologic, as well as other traumatic pathologies were entertained. Patient was seen and evaluated the bedside. Patient does have concern for fall proximal 5 days prior. Patient has had some difficulty with ambulation. Patient does currently live at home. Patient did have CTs of the chest abdomen pelvis as well as the head and neck. Patient did have plain chest x-ray completed. Patient denied having any shortness of breath. Patient's CTs did not show anything acute. Patient was told that she'll need to follow-up for this pulmonary nodule that was seen. Patient did have some element of mild pulmonary edema which she was given home doses of her antihypertensives in addition to IV Lasix. Patient had normal kidney function. Patient not have an elevated white count. Patient had normal hemoglobin. 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 Patient's EKG did show T-wave inversions in the lateral leads which are consistent with priors. Patient does have question a trace elevation in V3 and V4 but she did have some mild elevation seen on her prior EKG. Patient has a normal troponin without any active chest pain I do not believe that she has ACS. Patient may have an element of heart failure for which she was treated. I discussed with the patient as well as with case management if she would benefit from some rehabilitation given that the patient has had some difficulty with ambulation, history of recent falls, as well as her living situation. Patient did not have any acute fracture or bleeding or other traumatic abnormality of the chest abdomen or pelvis. Patient was evaluated for physical therapy. Patient was amenable to this. Patient was taken off oxygen as it was initially given for comfort and the patient reportedly had desaturations. Patient was admitted for possible COPD versus CHF. Patient's imaging was were concerning for CHF of the patient did have some wheezing and mild improvement with DuoNeb's. Patient was admitted. Medication Reconcilliation Current Medication List: was personally reviewed by me Blood Pressure Screening Patient's blood pressure: Elevated blood pressure Blood pressure disposition: Referred to PCP Impression Primary Impression: Fall Additional Impressions: CHF (congestive heart failure) UTI (urinary tract infection) Pulmonary nodule Acute respiratory failure with hypoxia Scribe Attestation The scribe's documentation has been prepared under my direction and personally reviewed by me in its entirety. I confirm that the note above accurately reflects all work, treatment, procedures, and medical decision making performed by me. Departure Information Dispostion Being Evaluated By Hospitalist Referrals Crystal Mcguire C.R.N.P (PCP) Patient Instructions My [facility] Problem Qualifiers Primary Impression: Fall Encounter type: initial encounter Qualified Codes: W19.XXXA - Unspecified fall, initial encounter Additional Impressions: CHF (congestive heart failure) Congestive heart failure type: unspecified congestive heart failure type Congestive heart failure chronicity: acute on chronic Qualified Codes: I50.9 - Heart failure, unspecified UTI (urinary tract infection) Urinary tract infection type: acute cystitis Hematuria presence: without hematuria Qualified Codes: N30.00 - Acute cystitis without hematuria
[2017-02-07] MEDS ORDERED: OPTIRAY 320 IV PRN (17:00)
[2017-02-07] MEDS ORDERED: ONDANSETRON INJ 2 MG/ML 2 ML VIAL IV STA (17:23)
[2017-02-07] MEDS ORDERED: ALBUT/IPRATROP 3MG/0.5MG NEB 3 ML VIAL INH STA ×2 (17:23→22:05)
[2017-02-07] MEDS ORDERED: CARV6.25 PO (17:25)
[2017-02-07] MEDS ORDERED: NRN400 PO (17:25)
[2017-02-07] MEDS ORDERED: ISOS30TA35 PO (17:25)
[2017-02-07] MEDS ORDERED: VALS-56 PO (17:29)
[2017-02-07] MEDS ORDERED: NORT10CA4 PO (17:29)
[2017-02-07] MEDS ORDERED: LSX40 PO (17:29)
[2017-02-07] MEDS ORDERED: FENTANYL CITRATE INJ 50 MCG/1 ML 2 ML VIAL IV ONE ×2 (17:30→19:15)
--- NOTE | 2017-02-07 17:34 | DIAGNOSTIC IMAGING REPORT ---
CHEST ONE VIEW PORTABLE CLINICAL HISTORY: 81 years-old Female presenting with EVALUATE FOR TRAUMA/INJURY. TECHNIQUE: Portable upright AP view of the chest was obtained. COMPARISON: 07/04/2016. FINDINGS: Left subclavian pacer with leads to the right atrium and right ventricular apex. Median sternotomy wires and prosthetic aortic valve noted. Prominence of the main pulmonary artery. Atherosclerosis of the aortic arch. Cardiac silhouette mildly enlarged. Hazy bibasilar opacities suggested. Trace bilateral pleural effusions may be present. No pneumothorax. Degenerative changes of the thoracic spine. Upper abdomen normal. IMPRESSION: 1. Mild cardiomegaly with hazy bibasilar opacities, which could suggest developing pulmonary edema. 2. Trace bilateral pleural effusions suspected. Electronically signed by: Omer Kate M.D. 02/07/2017 5:33 PM Dictated Date/Time: 02/07/2017 5:32 PM
[2017-02-07 17:52] LABS: BASO % 0.3 %; BASO ABS # 0.03 K/uL (0-0.2); HEMATOCRIT 43.3 % (37-47); HEMOGLOBIN 14.2 g/dL (12.0-16.0); IG# 0.02 K/uL (0.00-0.02); LYMPH % 32.4 %; LYMPH ABS # 3.25 K/uL (1.2-3.4); MEAN CELL VOLUME 84.9 fL (80-100); MEAN CORPUSCULAR HEMOGLOBIN 27.8 pg (25-34); MEAN CORPUSCULAR HGB CONC 32.8 g/dl (32-36); MEAN PLATELET VOLUME 10.6 fL (7.4-10.4); MONO % 3.2 %; MONO ABS # 0.32 K/uL (0.11-0.59); NEUT % 61.9 %; NEUT ABS # 6.21 K/uL (1.4-6.5); PLATELET COUNT 162 K/uL (130-400); RED CELL DISTRIBUTION WIDTH CV 15.3 % (11.5-14.5); RED CELL DISTRIBUTION WIDTH SD 47.1 fL (36.4-46.3); WHITE BLOOD COUNT 10.03 K/uL (4.8-10.8)
[2017-02-07 18:04] LABS: INR 0.9 (0.9-1.1)
[2017-02-07 18:14] LABS: ALBUMIN 3.6 gm/dl (3.4-5.0); CALCIUM 9.1 mg/dl (8.5-10.1)
[2017-02-07 18:19] LABS: TOTAL PROTEIN 8.1 gm/dl (6.4-8.2)
--- NOTE | 2017-02-07 18:50 | DIAGNOSTIC IMAGING REPORT ---
CT OF THE HEAD WITHOUT CONTRAST CLINICAL HISTORY: Fall. COMPARISON STUDY: Head CT February 22, 2016. TECHNIQUE: Helical axial images of the head were obtained without IV contrast. Automated exposure control was utilized for the study. A dose lowering technique was utilized adhering to the principles of ALARA. FINDINGS: No acute intracranial hemorrhage, midline shift or mass effect is present. Ventricular system is stable. Basilar cisterns are patent. There are no extra axial collections. White matter hypodensities are unchanged and suggest small vessel disease. Encephalomalacia within the superior left cerebellar hemisphere is unchanged. There is no calvarial fracture. Exam is mildly compromised by motion artifact. A previous right sided silvano hole is noted. IMPRESSION: 1. No acute intracranial findings. 2. No calvarial fracture. Electronically signed by: Sonido Issa M.D. 02/07/2017 6:49 PM Dictated Date/Time: 02/07/2017 6:46 PM
[2017-02-07] MEDS ORDERED: MoRPHine SULFATE 4 MG/ML 1 ML CARP\\VIAL IV STA (18:52)
--- NOTE | 2017-02-07 18:54 | DIAGNOSTIC IMAGING REPORT ---
CT OF THE CERVICAL SPINE WITHOUT CONTRAST CLINICAL HISTORY: EVALUATE FOR TRAUMA/INJURY COMPARISON STUDY: Cervical spine CT August 08, 2012. TECHNIQUE: Helical axial images of the cervical spine were obtained without IV contrast. Sagittal and coronal reconstructions were viewed. A dose lowering technique was utilized adhering to the principles of ALARA. FINDINGS: Alignment of the cervical spine is anatomic. Craniocervical junction is intact. There is no acute cervical spine fracture. There is no prevertebral edema. There is severe multilevel facet arthrosis and moderate multilevel degenerative disc disease. Visualized portions of the lung apices demonstrate interlobular septal thickening consistent with interstitial pulmonary edema. A few thyroid nodules are noted. IMPRESSION: 1. No acute cervical spine fracture or subluxation. 2. Mild interstitial pulmonary edema within visualized portions of the lung apices. Electronically signed by: Sonido Issa M.D. 02/07/2017 6:53 PM Dictated Date/Time: 02/07/2017 6:49 PM
--- NOTE | 2017-02-07 18:57 | DIAGNOSTIC IMAGING REPORT ---
(CHEST) THORAX WITH CLINICAL HISTORY: 81 years-old Female presenting with Trauma, fall 5 days ago, back pain. TECHNIQUE: Multidetector CT imaging of the chest was performed after the administration of intravenous contrast. IV contrast: 94 mL of Optiray 320. A dose lowering technique was used consistent with the principles of ALARA (as low as reasonably achievable). COMPARISON: 07/04/2016. CT DOSE (mGy.cm): The estimated cumulative dose is 1805.94 inclusive of multiple additional CT scans. FINDINGS: New Product Trainer topogram: Left subclavian pacer with leads to the right atrium and right ventricular apex. Median sternotomy wires and prosthetic valve. Cholecystectomy clips. Total right hip arthroplasty. Two screw fixation of the left femoral neck. On soft tissue windows, multiple subcentimeter nodules in the thyroid gland. Multiple prominent mediastinal lymph nodes in the precarinal and subcarinal regions. These measure up to 8 mm in the short axis. Prominent right hilar lymph nodes also noted. Atherosclerosis of the aorta. Main pulmonary artery mildly enlarged measuring 3.3 cm in transverse dimension. Left subclavian pacer with leads to the right atrium and right ventricular apex. Normal heart size. Coronary artery calcification. Prosthetic mitral valve. Trace right pleural effusion. No pericardial effusion. Cholecystectomy clips. No abdominal free fluid. On lung windows, dependent groundglass opacity at the right lung base. Smooth interlobular septal thickening. Solid peripheral 5 mm nodule in the right upper lobe (series 12 image 111). Minimal bandlike opacities at the left lung base likely atelectasis. Large airways patent. On bone windows, mild degenerative changes of the thoracic spine. No acute osseous injury. Osteopenia. Median sternotomy. IMPRESSION: 1. No acute intrathoracic injury. 2. Findings suggest developing pulmonary edema. 3. Prominent mediastinal and right hilar lymph nodes, possibly reactive or related to congestive changes. 4. Main pulmonary arterial enlargement could suggest pulmonary hypertension. 5. Solid 5 mm nodule in the right upper lobe. Follow-up per Gloria Society 2017 recommendations below. Please refer to below summary of Fleischner Society 2017 recommendations for follow-up of incidental CT nodules (Malika Shah et al. Guidelines for management of incidental pulmonary nodules detected on CT images: From the Fleischner Society 2017. Radiology 2017; 284: 228-243.) SOLID NODULES Single nodule; size < 6 mm * Low risk patients: No routine follow-up * High risk patients: Optional CT at 12 months Single nodule; size 6-8 mm * Low risk patients: CT at 6-12 months, then consider CT at 18-24 months * High risk patients: CT at 6-12 months, then at 18-24 months Single nodule; size > 8 mm * Either low or high risk patients: Considered CT at 3 months, PET/CT, or tissue sampling Multiple nodules; size < 6 mm * Low risk patients: No routine follow up * High risk patients: Optional CT at 12 months Multiple nodules; size 6-8 mm * Low risk patients: CT at 3-6 months, then consider CT at 18-24 months * High risk patients: CT at 3-6 months, then at 18-24 months Multiple nodules; size > 8 mm * Low risk patients: CT at 3-6 months, then consider at 18-24 months * High risk patients: CT at 3-6 months, then at 18-24 months Note: These guidelines apply to incidental nodules. These guidelines do not apply to patients younger than 35 years, immunocompromised patients, or patients with cancer. * Low risk patients: Minimal or absent history of smoking and/or other known risk factors * High risk patients: History of smoking, exposure to other carcinogens, emphysema, fibrosis, upper lobe location, family history of lung cancer, etc. * If a nodule up to 8 mm is partly solid or is ground glass, further follow-up is required after 24 months to exclude possible slow growing adenocarcinoma. SUBSOLID NODULES Single ground-glass nodule * Nodule size < 6 mm: No routine follow-up * Nodule size > or = 6 mm: CT at 6-12 months to confirm persistence, then CT every 2 years until 5 years Single part-solid nodule * Nodule size < 6 mm: No routine follow-up * Nodules size > or = 6 mm: CT at 3-6 months to confirm persistence. If unchanged and solid component remains < 6 mm, annual CT should be performed for 5 years Multiple nodules * Nodule size < 6 mm: CT at 3-6 months. If stable, consider CT at 2 and 4 years. * Nodules size > or = 6 mm: CT at 3-6 months. Subsequent management based on the most suspicious nodule(s) Electronically signed by: Omer Kate M.D. 02/07/2017 6:56 PM Dictated Date/Time: 02/07/2017 6:49 PM
--- NOTE | 2017-02-07 19:05 | DIAGNOSTIC IMAGING REPORT ---
ABD/PELVIS IV CONTRAST ONLY CLINICAL HISTORY: 81 years-old Female presenting with s/p fall; 5 days ago, significant L spine and ab pain. TECHNIQUE: Multidetector CT of the abdomen and pelvis was performed after the administration of intravenous contrast. IV contrast: 94 mL of Optiray 320. A dose lowering technique was used consistent with the principles of ALARA (as low as reasonably achievable). COMPARISON: 10/24/2014. CT DOSE (mGy.cm): The estimated cumulative dose is 1805.94 mGy.cm. FINDINGS: Amphibian Crewmember topogram: Left subclavian pacer with leads to the right atrium and right ventricular apex. Median sternotomy wires with prosthetic mitral valve. Cholecystectomy clips. Total right hip arthroplasty. Screw fixation of the left femoral neck. Lung bases: Interlobular septal thickening with minimal groundglass opacities and trace pleural effusions. Normal heart size. Partially visualized pacer lead. Coronary artery calcification. Liver: Mildly nodular contour of the liver. Perfusional variation along the fissure for the falciform ligament. No focal lesion. Patent hepatic vasculature. Biliary: Mild biliary ductal prominence likely a reservoir effect in the post cholecystectomy state. Gallbladder surgically absent. Pancreas: Mild parenchymal atrophy. Prominence of the pancreatic duct, which may have been present on prior exam. No gross evidence of an obstructing pancreatic head mass Spleen: Normal. Adrenal glands: Normal. Kidneys and ureters: Focal cortical scarring at the lateral aspect of the lower pole the left kidney with a similar smaller defect in the right kidney. Possibly reflux nephropathy or prior infarct, infection, or injury. Renal vascular calcification. No nephrolithiasis. No hydronephrosis. Ureters normal. Bladder: Normal. Pelvic organs: Uterus surgically absent. No adnexal masses. Bowel: Diverticulosis of the sigmoid colon. Moderate stool burden. No bowel obstruction. No gross evidence of bowel wall thickening to suggest bowel injury. No infiltration of the mesentery. Peritoneal cavity: No free fluid or intraperitoneal gas. Lymph nodes: No enlarged lymph nodes in the abdomen or pelvis. Vasculature: Atherosclerosis of the normal caliber abdominal aorta. IVC patent. Retroaortic left renal vein. Clips noted in the region of the right common femoral vein. Abdominal wall: No focal infiltration to suggest contusion. Musculoskeletal: Postsurgical changes of total right hip arthroplasty. No hardware complication is apparent within the visualized portion of the prosthesis. 3 lag screw fixation of the left femoral neck. No acute osseous injury. Degenerative changes of the spine. IMPRESSION: 1. No acute intra-abdominal injury. 2. Findings suggest early pulmonary edema. 3. Diverticulosis. 4. Total right hip arthroplasty and left femoral neck screw fixation. No acute osseous injury. Electronically signed by: Omer Kate M.D. 02/07/2017 7:03 PM Dictated Date/Time: 02/07/2017 6:48 PM
[2017-02-07] MEDS ORDERED: FUROSEMIDE 40 MG/4 ML VIAL IV STA (19:08)
[2017-02-07] MEDS ORDERED: VALSARTAN 80 MG TAB PO STA (19:08)
[2017-02-07] MEDS ORDERED: NITROGLYCERIN 0.4 MG SL PER TAB CHARGE SL STA (19:23)
[2017-02-07] MEDS ORDERED: CIPROFLOXACIN 250 MG TAB PO ONE (20:30)
[2017-02-07] MEDS ORDERED: HYDROCODONE/ACETAMIN 5/325MG TAB PO STA (20:32)
[2017-02-07] MEDS ORDERED: DOCUSATE SODIUM 100 MG CAP ONE (21:13)
--- NOTE | 2017-02-07 22:39 | EMERGENCY ROOM VISIT NOTE ---
ED Visit Note First contact with patient: 09:30 81 yr old female in ED for quite some time today due to fall a few days ago and now ambulatory issues due to pain. Extensive work-up benign but given intractable pain and ambulatory issues the original plan was [facility]. Unfortunately nursing noted that her O2 sats were persistently in 80s when off O2. Does not use O2 at home. Does have COPD. On eval she is awake, alert, oriented. She has diminished breath sounds bilaterally with wheezing. Given neb. As hypoxic will bring in for further monitoring/treatment. Will defer abx /steroids to hospitalists. Of note, daughter mentions patient with some swallowing issues recently which I passed on to hospitalist service given her history of strokes.
--- NOTE | 2017-02-07 22:45 | History and Physical ---
History & Physical Date & Time of Service: Feb 07, 2017 at 22:39 Chief Complaint: Fall;Back And Hip Pain,Hand Is Swollen Primary Care Physician: Crystal Mcguire C.R.N.P History of Present Illness Source: patient This is an 81 y/o F with a h/o of HTN, DLD, COPD, Systolic/dystolic CHF CAD s/p CABG, CKD, s/p Pacemaker placement, brain bleed s/p evacuation who presents 5 days after a fall. She reports having fallen in the hallway upstairs after wrapping presents. She was aware of her fall and was not pre-syncopal or syncopal. She did not lose consciousness or hit her head. She denied any associated chest pain or shortness of breath at the time. She was at her son's yesterday and fell again. She lives by herself, does have a walker and has a cane. She has been complaining of back pain since the fall. She took Tylenol which helped some. In the Ed, there were attempts to place her in acute rehab. However, she was noted to be hypoxic in the 80's. Chest X-ray does reveal pulmonary edema. Past Medical/Surgical History Medical Problems: (1) AORTOCORONARY BYPASS Status: Resolved (2) ATRIAL FIBRILLATION Status: Chronic (3) CHRONIC KIDNEY DISEASE, STAGE III (MODERATE) Status: Chronic (4) CHRONIC SYSTOLIC HRT FAILURE Status: Chronic (5) CORON ATHEROSCLER NOS TYPE VESSEL, SOBOBA OR GRAFT Status: Chronic (6) CVA Status: Chronic (7) Implantation of cardiac pacemaker Status: Chronic (8) PNEUMONIA, ORGANISM NOS Status: Chronic (9) Seizure Status: Chronic (10) Subdural hematoma Status: Chronic Family History Heart disease Social History Smoking Status: Former Smoker Smokeless Tobacco Use: No Alcohol Use: none Drug Use: none Marital Status: Housing status: lives alone Occupational Status: retired Immunizations History of Influenza Vaccine: Yes Influenza Vaccine Date: Nov 08, 2011 History of Tetanus Vaccine?: No History of Pneumococcal: No Pneumococcal Date: Jan 01, 2009 History of Hepatitis B Vaccine: No Multi-Drug Resistant Organisms History of MDRO: No Allergies Coded Allergies: Cephalosporins (Verified Allergy, Severe, TONGUE SWELLING WITH KEFLEX, ) Penicillins (Verified Allergy, Severe, HIVES, SOB, 02/07/17) Tamsulosin (Verified Allergy, Severe, SHORTNESS OF BREATH, 02/07/17) Butalbital (Verified Allergy, Intermediate, SHORTNESS OF BREATH, 02/07/17) Levetiracetam (Verified Allergy, Intermediate, RASH, 02/07/17) Sulfa Antibiotics (Verified Allergy, Unknown, "SULFA DRUGS" - UNKNOWN, ) Morphine (Verified Adverse Reaction, Unknown, hallucinations, 02/07/17) Home Medications Scheduled Aspirin (Aspirin Ec), 81 MG PO DAILY Calcium Carbonate (Calcium 600), 1 TAB PO BID Carvedilol (Coreg), 6.25 MG PO BID Furosemide (Furosemide), 40 MG PO DAILY Gabapentin (Gabapentin), 400 MG PO BID Isosorbide Mononitrate Ext Rel (Imdur Ext Rel), 30 MG PO DAILY Lovastatin (Mevacor), 40 MG PO DAILY Nortriptyline HCl (Nortriptyline HCl), 20 MG PO HS Pantoprazole (Pantoprazole Sodium), 40 MG PO DAILY Valsartan (Valsartan), 40 MG PO BID Scheduled PRN Ipratropium-Albuterol (Combivent Respimat), 1 PUFF INH for SOB/Wheezing Ipratropium-Albuterol (Duoneb), 1 TREATMENT INH Q4H PRN for SOB/Wheezing Review of Systems Constitutional: No fever, No chills Eyes: No worsening of vision Respiratory: + shortness of breath, No cough, No sputum Cardiovascular: No chest pain Abdomen: No pain, No nausea, No vomiting, No diarrhea Genitourinary - Female: No dysuria, No urinary frequency, No urinary urgency Physical Exam Vital Signs Date Time Temp Pulse Resp B/P (MAP) Pulse Ox O2 Delivery O2 Flow Rate FiO2 02/07/17 21:55 89 18 96 Nasal Cannula 2.0 02/07/17 21:54 91 18 133/102 87 Room Air 02/07/17 20:00 86 16 173/123 96 Nasal Cannula 02/07/17 19:00 92 23 215/105 92 Nasal Cannula 2.0 02/07/17 18:02 96 20 208/116 93 Nasal Cannula 2.0 02/07/17 17:40 103 02/07/17 17:20 98 24 216/126 98 Nasal Cannula 2.0 02/07/17 17:19 98 Nasal Cannula 2.0 02/07/17 14:58 36.8 85 20 186/103 95 Room Air General Appearance: no apparent distress Eyes: PERRL, EOMI ENT: hearing grossly normal Respiratory/Chest: + decreased breath sounds, + crackles Cardiovascular: regular rate, rhythm, no edema, + systolic murmur Abdomen/GI: normal bowel sounds, non tender, soft Extremities/Musculoskelatal: no calf tenderness, no pedal edema, normal range of motion Neurologic/Psych: dance historian II-XII nml as tested, alert, normal mood/affect, oriented x 3 Diagnostics Laboratory Results Results Past 24 Hours Test 02/07/17 17:36 02/07/17 20:02 Range/Units White Blood Count 10.03 4.8-10.8 K/uL Red Blood Count 5.10 4.2-5.4 M/uL Hemoglobin 14.2 12.0-16.0 g/dL Hematocrit 43.3 37-47 % Mean Corpuscular Volume 84.9 80-100 fL Mean Corpuscular Hemoglobin 27.8 25-34 pg Mean Corpuscular Hemoglobin Concent 32.8 32-36 g/dl Platelet Count 162 130-400 K/uL Mean Platelet Volume 10.6 7.4-10.4 fL Neutrophils (%) (Auto) 61.9 % Lymphocytes (%) (Auto) 32.4 % Monocytes (%) (Auto) 3.2 % Eosinophils (%) (Auto) 2.0 % Basophils (%) (Auto) 0.3 % Neutrophils # (Auto) 6.21 1.4-6.5 K/uL Lymphocytes # (Auto) 3.25 1.2-3.4 K/uL Monocytes # (Auto) 0.32 0.11-0.59 K/uL Eosinophils # (Auto) 0.20 0-0.5 K/uL Basophils # (Auto) 0.03 0-0.2 K/uL RDW Standard Deviation 47.1 36.4-46.3 fL RDW Coefficient of Variation 15.3 11.5-14.5 % Immature Granulocyte % (Auto) 0.2 % Immature Granulocyte # (Auto) 0.02 0.00-0.02 K/uL Prothrombin Time 9.9 9.0-12.0 SECONDS Prothromb Time International Ratio 0.9 0.9-1.1 Activated Partial Thromboplast Time 28.0 21.0-31.0 SECONDS Partial Thromboplastin Ratio 1.1 Sodium Level 137 136-145 mmol/L Potassium Level 4.0 3.5-5.1 mmol/L Chloride Level 103 98-107 mmol/L Carbon Dioxide Level 26 21-32 mmol/L Anion Gap 8.0 3-11 mmol/L Blood Urea Nitrogen 16 7-18 mg/dl Creatinine 1.00 0.60-1.20 mg/dl Est Creatinine Clear Calc Drug Dose 34.9 ml/min Estimated GFR () 60.3 Estimated GFR (Non- 52.1 BUN/Creatinine Ratio 15.9 10-20 Random Glucose 109 70-99 mg/dl Calcium Level 9.1 8.5-10.1 mg/dl Total Bilirubin 0.5 0.2-1 mg/dl Direct Bilirubin 0.1 0-0.2 mg/dl Aspartate Amino Transf (AST/SGOT) 16 15-37 U/L Alanine Aminotransferase (ALT/SGPT) 14 12-78 U/L Alkaline Phosphatase 87 45-117 U/L Troponin I 0.038 0-0.045 ng/ml Total Protein 8.1 6.4-8.2 gm/dl Albumin 3.6 3.4-5.0 gm/dl Urine Color YELLOW Urine Appearance CLEAR CLEAR Urine pH 7.0 4.5-7.5 Urine Specific [place] 1.021 1.000-1.030 Urine Protein 1+ NEG Urine Glucose (UA) NEG NEG Urine Ketones NEG NEG Urine Occult Blood NEG NEG Urine Nitrite POS NEG Urine Bilirubin NEG NEG Urine Urobilinogen NEG NEG Urine Leukocyte Esterase NEG NEG Urine WBC (Auto) 1-5 0-5 /hpf Urine RBC (Auto) 0-4 0-4 /hpf Urine Hyaline Casts (Auto) 1-5 0-5 /lpf Urine Epithelial Cells (Auto) >30 0-5 /lpf Urine Bacteria (Auto) 1+ NEG Impression Assessment and Plan This is an 81 y/o F who presents with falls and hypoxia Hypoxia 2/2 CHF exacerbation h/o of combined systolic and diastolic CHF bnp of 9[address] on [address] and Chest X-ray Lasix 40 mg IV daily Daily weights, I/O, low sodium diet Echo trend BMP , lytes Fall likely 2/2 ambulatory dysfunction pt/ot no fractures on imaging. assess for acute rehab placement CAD s/p CAbg, Pacer 2/2 heart block continue Coreg, aspirin, statin, Imdur COPD: Continue Duoneb, Combivent CKD stable Prophylaxis-heparin Code- Full Attending addendum: I have physically seen this patient, have supervised the medical residents activities, and agree with the H&P unless as otherwise noted. Assessment and Plan: Acute respiratory failure with hypoxia secondary to combined systolic and diastolic CHF/CAD/status post CABG/status post pacer for heart block-- The patient will be admitted to telemetry for serial cardiac enzymes, cardiac rhythm monitoring and a 2-D echocardiogram with Dopplers. Continue Coreg 6.25 mg by mouth twice a day, aspirin 81 mg by mouth daily, isosorbide mononitrate ER 30 mg by mouth daily and valsartan 40 mg by mouth twice a day Change Lasix 40 mg by mouth to IV every morning Follow serial CBC with differential, BMP and magnesium level GERD-- Continue pantoprazole 40 mg by mouth daily Hyperlipidemia-- Continue lovastatin 40 mg by mouth daily Check a fasting lipid panel and hemoglobin A1c Neuropathy/insomnia-- Continue gabapentin 40 mg by mouth twice a day and nortriptyline 20 mg by mouth at bedtime Level of Care Telemetry Advanced Directives Existing Advance Directive: Yes Existing Living Will: Yes Existing Power of Clinical Trials Manager: Yes Resuscitation Status DO NOT RESUSCITATE VTE Prophylaxis VTE Risk Assessment Done? Y/N: Yes Given or contraindicated: SCD's
[2017-02-07] MEDS ORDERED: ALBUT/IPRATROP 3MG/0.5MG NEB 3 ML VIAL INH PRN (23:45)
[2017-02-07] MEDS ORDERED: ALUMINUM/MAGNESIUM/SIMETH (MAALOX MAX) 30 ML UDC PO PRN (23:45)
[2017-02-07] MEDS ORDERED: IPRATROPIUM BROMIDE/ALBUTEROL respimat INH INH PRN (23:45)
[2017-02-07] MEDS ORDERED: POLYETHYLENE (MIRALAX) 17 GM PACK PO PRN (23:45)
[2017-02-07] MEDS ORDERED: NITROGLYCERIN 0.4 MG SL PER TAB CHARGE SL PRN (23:45)
[2017-02-07] MEDS ORDERED: MAGNESIUM HYDROXIDE SUSP 30 ML UDC PO PRN (23:45)
[2017-02-07] MEDS ORDERED: ONDANSETRON INJ 2 MG/ML 2 ML VIAL IV PRN (23:45)
[2017-02-08] VITALS (9 sets, daily range): BP systolic 106–165; BP diastolic 60–83; PULSE 50–79; TEMP 36.3–37.3; O2SAT 94–98; Ht 154.9 cm; Wt 57.7 kg
--- NOTE | 2017-02-08 | NUR ---
A: Pt. is A&Ox3, denies any complaints. Telemetry intact showing NSR in 70s. Denies CP or palpitations. Denies SOB on 2 L NC. Lung sounds diminished through. Hypoactive but present bowel sounds. Per report, patient has not had BM since 02/03. Pt. is passing gas. Prunes on bedside table appear 75% consumed. Will continue to closely monitor. Call morejon within reach, bed alarm intact. 3 side rails up. Pt. family present at bedside. Addendum: 02/09/17 at 0040 by Rina Jorgensen RN documented on wrong date. this assessment should be 02/09 at 0000
--- NOTE | 2017-02-08 00:45 | NUR ---
81 yr old female arrives via litter to room S229-1 with admitting dx CHF, Fall. Assist x 1 to bed. A/O x 4. Telemetry on and verified. SR. HR 70s. Pt does have a pacemaker. O2 2/l; GOOD. LLL with crackles. No edema. Pt oriented to call morejon and demos use. Fall risk. Bed alarm on. Call morejon within touch. Continue to monitor closely.
--- NOTE | 2017-02-08 03:45 | NUR ---
Pt reports difficulty swallowing food at times. Pt states this baseline for her. Denies difficulties swallowing liquids or pills. Dysphagia screening done at this time. Pt passed. Water given, will medicate with Tylenol at this time.
[2017-02-08] MEDS: ACETAMINOPHEN 325 MG TAB PO PRN ×2 (03:57→13:20)
--- NOTE | 2017-02-08 04:00 | NUR ---
OOB with assist x 1. Pt ambulates slowly to BSD to void.
--- NOTE | 2017-02-08 08:00 | NUR ---
Pt resting in bedside chair comfortably. A/O x4. Denies any issues. Sinus on monitor. Trace edema LE BL. Lungs dim throughout. 2L NC. Diuresing well. Refer to EMR for smooth stucco resurfacer and vitals. Call morejon within reach. Will continue to monitor.
[2017-02-08] MEDS: CARVEDILOL 6.25 MG TAB PO SCH ×2 (08:14→21:03)
[2017-02-08] MEDS: ASPIRIN 81 MG ECTAB PO SCH (08:14)
[2017-02-08] MEDS: ISOSORBIDE MONONITRATE 30 MG TABCR PO SCH (08:14)
[2017-02-08] MEDS: LOVASTATIN 20 MG TAB PO SCH (08:15)
[2017-02-08] MEDS: VALSARTAN 80 MG TAB PO SCH ×2 (08:15→21:01)
[2017-02-08] MEDS: PANTOprazole SOD 40 MG TAB PO SCH (08:16)
[2017-02-08] MEDS: GABAPENTIN 400 MG CAP PO SCH ×2 (08:16→21:01)
[2017-02-08] MEDS: HEPARIN SOD 5000 UNIT/0.5 ML CARP SQ SCH ×2 (08:17→21:00)
[2017-02-08] MEDS ORDERED: FUROSEMIDE INJ 40 MG in SYRINGE 0 ML IV SCH (09:00)
[2017-02-08] MEDS ORDERED: CIPROFLOXACIN / D5W 400 MG in PREMIXED IN D5W 200 ML IV SCH (09:00)
[2017-02-08] MEDS: FUROSEMIDE 40 MG TAB PO SCH (09:07)
--- NOTE | 2017-02-08 11:02 | NUR ---
Case management note. Social service consult for discharge planning. Spoke with pt. Pt appears a&o. Pt lives at home alone. Pt does not use any assistive devices. Pt lives in a 3 story house with a stair lift. Pt does not have home health. Pt does her own cooking and housework. Pts children check on her daily. ER rifle case repairer made a referral to [facility]. Pt thinks she wants to return home now. Pt agreeable to see how she does with PT/OT and md recommendations. Discharge needs are uncertain at this time. Case management to follow with pt.
--- NOTE | 2017-02-08 11:45 | NUR ---
A/ID: RESUMED CARE OF PATIENT. ASSESSMENT COMPLETED. SHE IS AWAKE, ALERT AND ORIENTED. SHE WAS SITTING UP IN THE CHAIR AND GOT HERSELF BACK TO BED WITHOUT RINGING FOR ASSISTANCE. IV INTACT. [place] SOCKS. BED ALARM ON. CHAIR ALARM ORDERED FROM [facility]. OT AT BEDSIDE. NPO UNTIL TROP DRAWN AND RESULTED. DR. RODRIGUEZ WONDERING ABOUT 7AM EKG, [facility] CALLED AND ASKED TO COME COMPLETE EKG. CALL [facility] WITHIN REACH.
--- NOTE | 2017-02-08 12:36 | ECHOCARDIOGRAM REPORT ---
*NOTICE TO RECEIVING REPUBLICAN AGENCY This information is strictly Confidential and protected under [place] law. [place] law prohibits you from making any further disclosure of this information unless further disclosure is expressly permitted by the written consent of the person to whom it pertains or is authorized by law. A general authorization for the release of medical or other information is not sufficient for this purpose. Hospital accepts no responsibility if the information is made available to any other person, INCLUDING THE PATIENT. Interpretation Summary * Name: TIM GATES Study Date: 02/08/2017 06:26 AM BP: 165/83 mmHg * Patient Location: C.2T\S\S229\S\1 HR: 72 * : 1935 (M/d/yyyy) Gender: Female Height: 61 in * Age: 81 yrs Ethnicity: CA Weight: 127 lb * Ordering Physician: Franchesca Powell * Referring Physician: Self, Referred * Performed By: Almaz Kasper RCS * * Reason For Study: CHF * BSA: 1.6 m2 * -- Conclusions -- * 1. Normal left ventricular size with mildly to moderately reduced systolic function. Estimated EF 40-45%. Global hypokinesis. Mild concentric left ventricular hypertrophy. Type 1 diastolic dysfunction. * 2. The left atrium is mildly dilated. * 3. Sclerotic aortic valve without significant stenosis. * 4. There is mild to moderate mitral regurgitation. * 5. Status post mitral valve annuloplasty ring with acceptable transvalvular gradients. * 6. Mild pulmonary hypertension suggested. RVSP 46mmHg. * 7. No significant change from prior study on 07/05/2016. Procedure Details * A complete two-dimensional transthoracic echocardiogram was performed (2D, M-mode, Doppler and color flow Doppler). Left Ventricle * Normal left ventricular size with mildly to moderately reduced systolic function. Estimated EF 40-45%. Global hypokinesis. Mild concentric left ventricular hypertrophy. Type 1 diastolic dysfunction. Right Ventricle * There is a pacemaker lead in the right ventricle. * The right ventricle is normal in size and function. * The right ventricular systolic function is normal as assessed by tricuspid annular plane systolic excursion (TAPSE) (normal >1.5 cm). Atria * The left atrium is mildly dilated. * Right atrial size is normal. * There is no evidence of atrial septal defect, but resolution does not allow assessment for a patent foramen ovale. Mitral Valve * There is severe mitral annular calcification. * The mitral valve leaflets appear thickened, but open well. * There is mild to moderate mitral regurgitation. * Status post annuloplasty ring with acceptable transvalvular gradients. Tricuspid Valve * The tricuspid valve is not well visualized, but is grossly normal. * There is no tricuspid stenosis. * There is mild tricuspid regurgitation. Aortic Valve * The aortic valve is trileaflet. * Sclerotic aortic valve without significant stenosis. * Mild aortic regurgitation. Pulmonic Valve * The pulmonary valve is inadequately visualized, but the Doppler data is adequate for interpretation. * There is no pulmonic valvular stenosis. * There is no significant pulmonary regurgitation. Great Vessels * The aortic root is normal size. Pericardium/Pleural * There is no pericardial effusion. Great Vessels * Small IVC size with normal inspiratory collapse. MMode 2D Measurements and Calculations IVSd 1.3 cm IVSs 1.2 cm LVIDd 4.1 cm LVIDs 3.2 cm LVPWd 1.2 cm LVPWs 1.2 cm IVS/LVPW 1.1 FS 23.4 % EDV(Teich) 75.2 ml ESV(Teich) 39.7 ml EF(Teich) 47.2 % EDV(cubed) 70.0 ml ESV(cubed) 31.5 ml EF(cubed) 55.0 % % IVS thick -5.92 % % LVPW thick 2.2 % LV mass(C)d 184.3 grams LV mass(C)dI 118.3 grams/m\S\2 LV mass(C)s 121.3 grams LV mass(C)sI 77.9 grams/m\S\2 SV(Teich) 35.5 ml SI(Teich) 22.8 ml/m\S\2 SV(cubed) 38.5 ml SI(cubed) 24.7 ml/m\S\2 Ao root diam 3.3 cm Ao root area 8.6 cm\S\2 ACS 1.2 cm LA dimension 2.2 cm LA/Ao 0.67 LVOT diam 2.0 cm LVOT area 3.2 cm\S\2 LVAd ap2 28.0 cm\S\2 LVLd ap2 7.8 cm EDV(MOD-sp2) 81.0 ml EDV(sp2-el) 84.5 ml LVAs ap2 19.8 cm\S\2 LVLs ap2 7.0 cm ESV(MOD-sp2) 46.8 ml ESV(sp2-el) 47.7 ml EF(MOD-sp2) 42.2 % EF(sp2-el) 43.6 % SV(MOD-sp2) 34.2 ml SI(MOD-sp2) 21.9 ml/m\S\2 SV(sp2-el) 36.8 ml SI(sp2-el) 23.6 ml/m\S\2 Doppler Measurements and Calculations MV E max mirela 138.6 cm/sec MV A max mirela 161.8 cm/sec MV E/A 0.86 MV V2 max 176.0 cm/sec MV max PG 12.4 mmHg MV V2 mean 106.5 cm/sec MV mean PG 5.0 mmHg MV V2 VTI 47.8 cm MV P1/2t max mirela 150.1 cm/sec MV P1/2t 91.1 msec MVA(P1/2t) 2.4 cm\S\2 MV dec slope 482.8 cm/sec\S\2 MV dec time 0.26 sec Ao V2 max 169.2 cm/sec Ao max PG 11.5 mmHg Ao max PG (full) 10.0 mmHg CONCHIS(V,A) 1.2 cm\S\2 CONCHIS(V,D) 1.2 cm\S\2 AI max mirela 425.0 cm/sec AI max PG 72.3 mmHg AI dec slope 206.5 cm/sec\S\2 AI P1/2t 602.9 msec LV V1 max PG 1.5 mmHg LV V1 max 61.5 cm/sec MR max mirela 568.2 cm/sec MR max PG 129.3 mmHg TV E max mirela 46.4 cm/sec PA V2 max 81.1 cm/sec PA max PG 2.6 mmHg TR max mirela 327.4 cm/sec RVSP(TR) 45.9 mmHg RAP systole 3.0 mmHg
--- NOTE | 2017-02-08 14:29 | NUR ---
Case management note. Spoke with pt and with permission family about discharge planning. Reviewed therapy recommendations with pt and family. Pt agreeable to [facility] now. Pts family agreeable. Referral previously made. Spoke with [facility] rep and pt is accepted. Pt does not have home oxygen. Case management to follow with pt.
--- NOTE | 2017-02-08 15:20 | NUR ---
PRN MIRALAX GIVEN PER ORDER - PT HAS NOT HAD BOWEL MOVEMENT SINCE 02/03.
--- NOTE | 2017-02-08 16:00 | NUR ---
A: NO ACUTE CHANGES TO PATIENT ASSESSMENT. RESTING COMFORTABLY IN BED. DENIES PAIN. IV INTACT. SR ON MONITOR. CALL KRUSE WITHIN REACH. BED ALARM ON.
--- NOTE | 2017-02-08 16:48 | NUR ---
RD At Risk Screen completed, see linked note. Level of care I. Addendum: 02/08/17 at [address] Amended: Links added.
--- NOTE | 2017-02-08 17:05 | Family Medicine Progress Note ---
Progress Note Date of Service Feb 08, 2017. Subjective Pt evaluation today including: conversation w/ patient, physical exam, chart review, lab review, review of studies, review of inpatient medication list Pain: improving back pain from recent fall PO Intake: tolerating well Voiding: no voiding problems patient reports she feels well overall, no chest pain or discomfort, feels breathing is comfortable on current oxygen level Constitutional: + weakness Respiratory: + shortness of breath, + dyspnea at rest Cardiovascular: No chest pain, No orthopnea, No PND, No edema, No claudication, No palpitations, No problem reported Female : No dysuria, No urinary frequency, No hematuria, No incontinence, No abnormal vaginal bleeding, No vaginal discharge, No problem reported All Other Systems: Reviewed and Negative Medications Current Inpatient Medications Medications (Trade) Dose Ordered Sig/Channing Route Start Time Stop Time Status Last Admin Dose Admin Ioversol (Optiray 320) 100 ml UD PRN IV 02/07/17 17:00 02/11/17 16:59 Heparin Sodium (Porcine) (Heparin Sq 5000 Unit/0.5ml) 5,000 unit Q12 SQ 02/08/17 09:00 03/10/17 08:59 02/08/17 21:00 5,000 UNIT Acetaminophen (Tylenol Tab) 650 mg Q4H PRN PO 02/07/17 23:45 03/09/17 23:44 02/08/17 13:20 650 MG Al Hydrox/Mg Hydrox/Simethicone (Maalox Max Susp) 15 ml Q4H PRN PO 02/07/17 23:45 03/09/17 23:44 Magnesium Hydroxide (Milk Of Magnesia Susp) 30 ml Q12H PRN PO 02/07/17 23:45 03/09/17 23:44 Ondansetron HCl (Zofran Inj) 4 mg Q6H PRN IV 02/07/17 23:45 03/09/17 23:44 Nitroglycerin (Nitrostat Tab) 0.4 mg UD PRN SL 02/07/17 23:45 03/09/17 23:44 Polyethylene (Miralax Powder Packet) 17 gm DAILY PRN PO 02/07/17 23:45 03/09/17 23:44 02/08/17 14:59 17 GM Aspirin (Ecotrin Tab) 81 mg DAILY PO 02/08/17 09:00 03/10/17 08:59 02/08/17 08:14 81 MG Carvedilol (Coreg Tab) 6.25 mg BID PO 02/08/17 09:00 03/10/17 08:59 02/08/17 21:03 6.25 MG Gabapentin (Neurontin Cap) 400 mg BID PO 02/08/17 09:00 03/10/17 08:59 02/08/17 21:01 400 MG Albuterol/ Ipratropium (Combivent Respimat Inh) 2 puffs Q6H PRN INH 02/07/17 23:45 03/09/17 23:44 Albuterol/ Ipratropium (Duoneb) 3 ml Q4H PRN INH 02/07/17 23:45 03/09/17 23:44 Isosorbide Mononitrate (Imdur Ext Rel Tab) 30 mg DAILY PO 02/08/17 09:00 03/10/17 08:59 02/08/17 08:14 30 MG Lovastatin (Mevacor Tab) 40 mg DAILY PO 02/08/17 09:00 03/10/17 08:59 02/08/17 08:15 40 MG Nortriptyline HCl (Pamelor Cap) 20 mg HS PO 02/08/17 21:00 03/10/17 20:59 02/08/17 21:02 20 MG Pantoprazole Sodium (Protonix Tab) 40 mg DAILY PO 02/08/17 09:00 03/10/17 08:59 02/08/17 08:16 40 MG Valsartan (Diovan Tab) 40 mg BID PO 02/08/17 09:00 03/10/17 08:59 02/08/17 21:01 40 MG Furosemide (Lasix Tab) 40 mg QAM PO 02/08/17 09:00 03/10/17 08:59 02/08/17 09:07 40 MG Objective Vital Signs Date Time Temp Pulse Resp B/P (MAP) Pulse Ox O2 Delivery O2 Flow Rate FiO2 02/08/17 20:00 Nasal Cannula 2.0 02/08/17 19:48 36.7 68 20 129/72 (91) 95 Nasal Cannula 2.0 02/08/17 16:00 Nasal Cannula 2.0 02/08/17 15:34 36.3 67 20 130/73 (92) 98 Room Air 02/08/17 12:00 Nasal Cannula 2.0 02/08/17 11:59 37.0 73 18 106/64 (78) 98 Nasal Cannula 2.0 02/08/17 09:10 97 02/08/17 08:00 94 Nasal Cannula 2.0 02/08/17 07:57 37.3 72 20 136/71 (92) 94 Nasal Cannula 2.0 02/08/17 04:00 Nasal Cannula 2.0 02/08/17 03:46 37.0 50 16 165/83 (110) 94 Nasal Cannula 2.0 02/08/17 01:02 37.1 79 20 128/80 Nasal Cannula 4.0 02/07/17 23:40 87 16 146/97 96 Nasal Cannula 2.0 Physical Exam General Appearance: WD/WN, no apparent distress Eyes: normal inspection, PERRL, EOMI ENT: hearing grossly normal, pharynx normal Neck: supple, thyroid normal, no JVD Respiratory/Chest: chest non-tender, lungs clear, no respiratory distress, + crackles (minimal, left lower lobe>right) Cardiovascular: regular rate, rhythm, + systolic murmur Abdomen: normal bowel sounds, non tender, soft Extremities: no pedal edema, no calf tenderness Neurologic/Psychiatric: bait tier II-XII nml as tested, no motor/sensory deficits, alert, normal mood/affect, oriented x 3 Skin: normal color, warm/dry, no rash Lymphatic: no adenopathy Laboratory Results Last Resulted 02/07/17 17:36 Red Blood Count 5.10, Mean Corpuscular Volume 84.9, Mean Corpuscular Hemoglobin 27.8, Mean Corpuscular Hemoglobin Concent 32.8, Mean Platelet Volume 10.6, Neutrophils (%) (Auto) 61.9, Lymphocytes (%) (Auto) 32.4, Monocytes (%) (Auto) 3.2, Eosinophils (%) (Auto) 2.0, Basophils (%) (Auto) 0.3, Neutrophils # (Auto) 6.21, Lymphocytes # (Auto) 3.25, Monocytes # (Auto) 0.32, Eosinophils # (Auto) 0.20, Basophils # (Auto) 0.03 Last Resulted 02/07/17 17:36 Past 24 Hours Test 02/08/17 05:23 12/27/17 11:40 02/08/17 18:04 Range/Units Troponin I 0.051 *H 0.039 0.026 0-0.045 ng/ml Assessment and Plan This is an 81 y/o F who presents with recent falls and hypoxia Acute Hypoxic Respiratory Failure possibly 2/2 systolic/diastolic CHF exacerbation w/ pulmonary edema - bnp of 9300, pulmonary edema noted on CT and Chest X-ray - Lasix 40 mg switched to PO today - Daily weights, I/O, low sodium diet - Echo: global hypokinesis, EF 40-45%, no change from June 2016 - trend BMP/electrolytes Fall likely 2/2 ambulatory dysfunction - PT eval indicates she would benefit from home PT - OT eval indicates she will need further inpatient rehab - no fractures on imaging. 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 Discussed with Dr. Vilchis and agree with findings and plan as documented in the note. Any exceptions or clarifications are listed here: None Documented By: Latrell Olvera feeling better breathing better no chest pain no dysuria, urgency, frequency, etc. 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 stop abx. follow otherwise as above Resident Tracking Resident Involvement: Resident Care Provided Care Provided: Adult Hospital Medicine
--- NOTE | 2017-02-08 18:11 | NUR ---
PRUNES ORDERED FROM THE KITCHEN FOR PATIENT.
--- NOTE | 2017-02-08 20:00 | NUR ---
A: Pt. is A&Ox3, denies any complaints. Telemetry intact showing NSR in 70s. Denies CP or palpitations. Denies SOB on 2 L NC. Lung sounds diminished through. Hypoactive but present bowel sounds. Per report, patient has not had BM since 02/03. Pt. is passing gas. Prunes on bedside table appear 75% consumed. Will continue to closely monitor. Call morejon within reach, bed alarm intact. 3 side rails up. Pt. family present at bedside.
[2017-02-08] MEDS: NORTRIPTYLINE HCL 10 MG CAP PO SCH (21:02)
[2017-02-09] VITALS (10 sets, daily range): BP systolic 77–147; BP diastolic 47–94; PULSE 67–82; TEMP 36.5–36.8; O2SAT 88–94
--- NOTE | 2017-02-09 | NUR ---
A: Assessment unchanged. Pt. sleeping at this time. VSS. Telemetry intact - NSR in 70s. Bed alarm on, call morejon within close proximity. 3 siderails up. Will continue to closely monitor
--- NOTE | 2017-02-09 04:10 | NUR ---
A: Assessment unchanged. Sleeping at this time. VSS. Got up to void in bedside commode assist x1. Even though call morejon at bedside, patient was attempting to get out of bed to go to the bathroom. Reinforcement needed. Bed alarm was on and 3 siderails up. Discussed this with patient to please ring for assistance. It is for her safety. Verbalized understanding. Will continue to closely monitor
[2017-02-09 05:59] LABS: BASO % 0.3 %; BASO ABS # 0.02 K/uL (0-0.2); EOS ABS # 0.15 K/uL (0-0.5); HEMATOCRIT 40.3 % (37-47); HEMOGLOBIN 13.1 g/dL (12.0-16.0); IG# 0.01 K/uL (0.00-0.02); LYMPH % 28.8 %; LYMPH ABS # 2.11 K/uL (1.2-3.4); MEAN CELL VOLUME 84.8 fL (80-100); MEAN CORPUSCULAR HEMOGLOBIN 27.6 pg (25-34); MEAN CORPUSCULAR HGB CONC 32.5 g/dl (32-36); MEAN PLATELET VOLUME 11.6 fL (7.4-10.4); MONO % 5.2 %; MONO ABS # 0.38 K/uL (0.11-0.59); NEUT % 63.6 %; NEUT ABS # 4.66 K/uL (1.4-6.5); PLATELET COUNT 150 K/uL (130-400); RED CELL DISTRIBUTION WIDTH SD 46.3 fL (36.4-46.3); WHITE BLOOD COUNT 7.33 K/uL (4.8-10.8)
[2017-02-09 06:33] LABS: CALCIUM 9.2 mg/dl (8.5-10.1); CREATININE 1.19 mg/dl (0.60-1.20); POTASSIUM 3.9 mmol/L (3.5-5.1)
--- NOTE | 2017-02-09 07:31 | Clinical Documentation Query ---
GOYO Fuentes : CLINICAL DOCUMENTATION QUERY Clinical documentation includes a diagnosis of: Acute Respiratory Failure. Due to stringent requirements by our coding department, multiple clinical indicators associated with this diagnosis must be present in order for this to be coded/captured within the medical record. If appropriate, please document 2 or more of the following clinical indicators in daily progress notes and the discharge summary. If you feel the diagnosis of acute respiratory failure was made in error, or do not agree with it, simply discontinue documentation thereof. There is documented hypoxia, but no further report of distress, shortness of breath, significant tachypnea, ABG, etc. Acute Respiratory Failure indicators include: * Respirations >28 * Air hunger * Use of accessory muscles of respiration * Inability to speak in full sentences * Cyanosis * Pulse ox <90% RA or <95% on O2 *pH <7.35 or >7.45 * pO2 < 60 mm Hg (or 10mm below COPD patient's baseline) * pCO2 >50mm Hg (or 10mm above COPD patient's baseline) * mechanical ventilation * Increased work of breathing * Tachypnea Thank You, Mckinley Spivey, RN [phone]
[2017-02-09] MEDS: GABAPENTIN 400 MG CAP PO SCH ×2 (07:38→19:42)
[2017-02-09] MEDS: LOVASTATIN 20 MG TAB PO SCH (07:38)
[2017-02-09] MEDS: ISOSORBIDE MONONITRATE 30 MG TABCR PO SCH (07:39)
[2017-02-09] MEDS: CARVEDILOL 6.25 MG TAB PO SCH ×2 (07:39→19:42)
[2017-02-09] MEDS: PANTOprazole SOD 40 MG TAB PO SCH (07:39)
[2017-02-09] MEDS: ASPIRIN 81 MG ECTAB PO SCH (07:39)
[2017-02-09] MEDS: FUROSEMIDE 40 MG TAB PO SCH (07:39)
[2017-02-09] MEDS: VALSARTAN 80 MG TAB PO SCH ×2 (07:40→19:42)
[2017-02-09] MEDS: HEPARIN SOD 5000 UNIT/0.5 ML CARP SQ SCH ×2 (07:41→19:44)
--- NOTE | 2017-02-09 08:18 | NUR ---
Pt resting in bed comfortably. A/O x4. Denies any issues. Sinus on monitor. Lungs dim throughout.2l nc Pulse ox low 90's. No respiratory distress noted. 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 Call morejon within reach. Will continue to monitor.
[2017-02-09] MEDS: ACETAMINOPHEN 325 MG TAB PO PRN ×2 (10:46→23:28)
--- NOTE | 2017-02-09 12:00 | NUR ---
Pt resting in bedside chair comfortably. A/O x4. Denies any issues. When ambulating can become wobbly. Instructed pt to use call morejon. BP 81/48. Dr. Coulter informed. 250 bolus ordered and Lasix stopped. Sinus on monitor. Lungs dim throughout. Pulse ox low 90's on RA. 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 Call morejon within reach. Will continue to monitor.
[2017-02-09] MEDS ORDERED: NURSING VERBAL MED ORDER ONE (12:15)
[2017-02-09] MEDS ORDERED: SODIUM CHLORIDE 0.9% 250ML 250 ML IV SCH (12:45)
--- NOTE | 2017-02-09 15:10 | NUR ---
A: PT FULLY ASSESSED, SEE EMR. VERY PLEASANT AND COOPERATIVE WITH CARE. A&O, VSS, DENIES PAIN. LUNG SOUNDS DIMINISHED THROUGHOUT, ON ROOM AIR. NO SOB OR RESPIRATORY DISTRESS NOTED. NSR ON MONITOR. NO EDEMA. OOB X SUPERVISION ONLY. ENCOURAGED TO RING FOR ASSISTANCE. CALL KRUSE WITHIN REACH, WILL CONTINUE TO MONITOR.
--- NOTE | 2017-02-09 19:18 | Family Medicine Progress Note ---
Progress Note Date of Service Feb 09, 2017. Subjective Pt evaluation today including: conversation w/ patient, conversation w/ family , physical exam, chart review, lab review, review of inpatient medication list Pain: Patient declines pain PO Intake: tolerating PO well Voiding: no voiding problems Patient reports she is going "stir crazy" and that she just wants to go home, and is upset that she is unable to get up and walk on her own Constitutional: No fever, No chills, No sweats, No weight loss, No weakness , No fatigue, No problem reported Respiratory: + shortness of breath, + dyspnea on exertion, No cough, No sputum, No wheezing, No dyspnea at rest, No hemoptysis, No problem reported Cardiovascular: No chest pain, No orthopnea, No PND, No edema, No claudication, No palpitations, No problem reported Female : No dysuria, No urinary frequency, No hematuria, No incontinence All Other Systems: Reviewed and Negative Medications Current Inpatient Medications Medications (Trade) Dose Ordered Sig/Channing Route Start Time Stop Time Status Last Admin Dose Admin Ioversol (Optiray 320) 100 ml UD PRN IV 02/07/17 17:00 02/11/17 16:59 Heparin Sodium (Porcine) (Heparin Sq 5000 Unit/0.5ml) 5,000 unit Q12 SQ 02/08/17 09:00 03/10/17 08:59 02/09/17 07:41 5,000 UNIT Acetaminophen (Tylenol Tab) 650 mg Q4H PRN PO 02/07/17 23:45 03/09/17 23:44 02/09/17 10:46 650 MG Al Hydrox/Mg Hydrox/Simethicone (Maalox Max Susp) 15 ml Q4H PRN PO 02/07/17 23:45 03/09/17 23:44 Magnesium Hydroxide (Milk Of Magnesia Susp) 30 ml Q12H PRN PO 02/07/17 23:45 03/09/17 23:44 Ondansetron HCl (Zofran Inj) 4 mg Q6H PRN IV 02/07/17 23:45 03/09/17 23:44 Nitroglycerin (Nitrostat Tab) 0.4 mg UD PRN SL 02/07/17 23:45 03/09/17 23:44 Polyethylene (Miralax Powder Packet) 17 gm DAILY PRN PO 02/07/17 23:45 03/09/17 23:44 02/08/17 14:59 17 GM Aspirin (Ecotrin Tab) 81 mg DAILY PO 02/08/17 09:00 03/10/17 08:59 02/09/17 07:39 81 MG Carvedilol (Coreg Tab) 6.25 mg BID PO 02/08/17 09:00 03/10/17 08:59 02/09/17 07:39 6.25 MG Gabapentin (Neurontin Cap) 400 mg BID PO 02/08/17 09:00 03/10/17 08:59 02/09/17 07:38 400 MG Albuterol/ Ipratropium (Combivent Respimat Inh) 2 puffs Q6H PRN INH 02/07/17 23:45 03/09/17 23:44 Albuterol/ Ipratropium (Duoneb) 3 ml Q4H PRN INH 02/07/17 23:45 03/09/17 23:44 Isosorbide Mononitrate (Imdur Ext Rel Tab) 30 mg DAILY PO 02/08/17 09:00 03/10/17 08:59 02/09/17 07:39 30 MG Lovastatin (Mevacor Tab) 40 mg DAILY PO 02/08/17 09:00 03/10/17 08:59 02/09/17 07:38 40 MG Nortriptyline HCl (Pamelor Cap) 20 mg HS PO 02/08/17 21:00 03/10/17 20:59 02/08/17 21:02 20 MG Pantoprazole Sodium (Protonix Tab) 40 mg DAILY PO 02/08/17 09:00 03/10/17 08:59 02/09/17 07:39 40 MG Valsartan (Diovan Tab) 40 mg BID PO 02/08/17 09:00 03/10/17 08:59 02/09/17 07:40 40 MG Objective Vital Signs Date Time Temp Pulse Resp B/P (MAP) Pulse Ox O2 Delivery O2 Flow Rate FiO2 02/09/17 15:18 36.5 67 20 115/68 (84) 92 Room Air 02/09/17 15:10 Room Air 02/09/17 13:28 98/94 (95) 02/09/17 12:00 94 Nasal Cannula 2.0 02/09/17 11:39 36.5 71 18 81/48 (59) 92 77/47 (57) 02/09/17 08:00 94 Nasal Cannula 2.0 02/09/17 07:25 36.6 74 18 103/59 (74) 90 2.0 02/09/17 04:00 Nasal Cannula 2.0 02/09/17 03:30 36.8 73 16 122/70 (87) 94 Nasal Cannula 2.0 02/09/17 00:00 Nasal Cannula 2.0 02/08/17 23:30 36.9 77 17 119/60 (79) 97 Nasal Cannula 2.0 02/08/17 20:00 Nasal Cannula 2.0 02/08/17 19:48 36.7 68 20 129/72 (91) 95 Nasal Cannula 2.0 Physical Exam General Appearance: WD/WN, no apparent distress Eyes: normal inspection, PERRL, EOMI, sclerae normal ENT: hearing grossly normal Neck: supple, no JVD, no carotid bruits, trachea midline Respiratory/Chest: chest non-tender, no respiratory distress, no accessory muscle use, + crackles (bilaterally lower lobes) Cardiovascular: regular rate, rhythm, no edema, no gallop Abdomen: normal bowel sounds, non tender, soft Extremities: normal range of motion, non-tender, normal inspection, no pedal edema, no calf tenderness Neurologic/Psychiatric: band 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 operator II-XII nml as tested, no motor/sensory deficits, alert, normal mood/affect, oriented x 3 Skin: normal color, warm/dry, no rash Laboratory Results Last Resulted 02/09/17 05:25 Red Blood Count 4.75, Mean Corpuscular Volume 84.8, Mean Corpuscular Hemoglobin 27.6, Mean Corpuscular Hemoglobin Concent 32.5, Mean Platelet Volume 11.6, Neutrophils (%) (Auto) 63.6, Lymphocytes (%) (Auto) 28.8, Monocytes (%) (Auto) 5.2, Eosinophils (%) (Auto) 2.0, Basophils (%) (Auto) 0.3, Neutrophils # (Auto) 4.66, Lymphocytes # (Auto) 2.11, Monocytes # (Auto) 0.38, Eosinophils # (Auto) 0.15, Basophils # (Auto) 0.02 Last Resulted 02/09/17 05:25 Past 24 Hours Test 02/08/17 23:21 Range/Units Troponin I 0.020 0-0.045 ng/ml Assessment and Plan This is an 81 y/o F PMH HTN, DLD, COPD, Combined systolic/diastolic HF, CAD s/p CABG, CKD III, pacemaker in situ, Brain bleed s/p evacuation admitted for acute hypoxic respiratory failure 2/2 CHF exacerbation Acute Hypoxic Respiratory Failure possibly 2/2 systolic/diastolic CHF exacerbation w/ pulmonary edema - BNP 9300 - Lasix 40 mg PO - Daily weights, I/O, low sodium diet - Echo: global hypokinesis, EF 40-45%, no change from June 2016 - trending BMP/electrolytes - Patient experienced asymptomatic hypotension this afternoon of 80/48, lasix dosing was held and bolus of 250 mL NSS administered. BP responded appropriately. - Currently on 2L O2 NC O2 sats 92-94%. Patient desatted to 90% on attempt to wean O2 - 2 step prior to DC if going home Fall likely 2/2 ambulatory dysfunction - PT eval indicates she would benefit from home PT - OT eval indicates she will need further inpatient rehab - Discussed case with patient's son, Roman, and he and family concur that she would benefit more from inpatient rehabilitation over home PT. Roman reports she has had home PT in the past but would decline to work with them and would not work on exercises recommended when they left States she has been to [facility] in the past and did very well. He hopes that the prior injury to her foot that contributes to her falls can be given further attention from rehab standpoint - no fractures on imaging. CAD s/p CAbg, Pacer 2/2 heart block - continue Coreg 6.25, aspirin 81, lovastatin 40, Imdur 30, diovan 40 - Troponin mildly elevated on admission at 0.051 but trending downward, most recent 0.020 - Echo showed no change from previous June 2016 COPD: - Continue Duoneb, Combivent CKD stage III- stable DVT Prophylaxis-heparin Code- DNR Dispo- Accepted at [facility] when bed available if patient amenable Son Roman: [phone] Daughter Laverne: [phone] Resident Physician Supervision Note: I interviewed and examined the patient. Discussed with Dr. Vilchis and agree with findings and plan as documented in the note. Any exceptions or clarifications are listed here: None Documented By: Latrell Olvera feeling better breathing better, reluctantly amenable to going to rehab vitals noted nad breathing unlabored acute on chronic CHF - improving. transiently hypotensive later in the day - held lasix, gave small fluid bolus - no other problems. likely dry at this point weakness/falls - for rehab Resident Tracking Resident Involvement: Resident Care Provided Care Provided: Adult Hospital Medicine
[2017-02-09] MEDS: NORTRIPTYLINE HCL 10 MG CAP PO SCH (19:41)
--- NOTE | 2017-02-10 00:01 | NUR ---
A/ID: REFER TO EMR FOR HEAD TO TOE ASSESSMENT. PRN TYLENOL FOR COMPLAINTS OF BACK PAIN- PT STATES THIS IS CHRONIC PAIN. PT DENIES COMPLAINTS OF SHORTNESS OF BREATH. CALL KRUSE WITHIN REACH, BED ALARM INTACT FOR SAFETY. WILL CONTINUE TO MONITOR. UNKNOWN D/C AT THIS TIME.
[2017-02-10 03:53] VITALS: BP 134/75; PULSE 72; TEMP 36.6; O2SAT 98
--- NOTE | 2017-02-10 04:00 | NUR ---
A: REFER TO EMR FOR HEAD TO TOE ASSESSMENT. PT DENIES COMPLAINTS OF PAIN OR SHORTNESS OF BREATH AT PRESENT TIME. VSS. BED ALARM INTACT FOR SAFETY. CALL KRUSE WITHIN REACH, WILL CONTINUE TO MONITOR.
[2017-02-10 06:34] LABS: CALCIUM 9.2 mg/dl (8.5-10.1); CREATININE 1.53 mg/dl (0.60-1.20); POTASSIUM 4.1 mmol/L (3.5-5.1)
[2017-02-10 07:31] VITALS: BP 132/72; PULSE 73; TEMP 36.7; O2SAT 95
[2017-02-10] MEDS: CARVEDILOL 6.25 MG TAB PO SCH (07:57)
[2017-02-10] MEDS: VALSARTAN 80 MG TAB PO SCH (07:58)
[2017-02-10] MEDS: ASPIRIN 81 MG ECTAB PO SCH (07:59)
[2017-02-10] MEDS: ISOSORBIDE MONONITRATE 30 MG TABCR PO SCH (07:59)
[2017-02-10] MEDS: LOVASTATIN 20 MG TAB PO SCH (07:59)
[2017-02-10] MEDS: GABAPENTIN 400 MG CAP PO SCH (08:00)
[2017-02-10] MEDS: PANTOprazole SOD 40 MG TAB PO SCH (08:00)
--- NOTE | 2017-02-10 08:00 | NUR ---
A: Nursing assessment complete and documented in emr. A&O. VS WNL. Denies pain and sob. VS WNL. SR per tele. Lungs dim. Assist of one with activity. No complaints or s/s of acute distress noted at this time. Call morejon within reach and pt instructed to ring for assistance. Will continue to monitor. See emr for full assessment data.
[2017-02-10] MEDS: HEPARIN SOD 5000 UNIT/0.5 ML CARP SQ SCH (08:01)
--- NOTE | 2017-02-10 10:53 | Discharge Instructions ---
Discharge Instructions Date of Service Feb 10, 2017. Admission Reason for Admission: Chf, Fall Discharge Discharge Diagnosis / Problem: Acute hypoxic respiratory failure secondary to combined sys/hicks CHF Discharge Goals Goal(s): Improve function, Increase independence, Therapeutic intervention Activity Recommendations Activity Limitations: per Instructions/Follow-up section . Instructions / Follow-Up Instructions / Follow-Up This is an 81 y/o F PMH HTN, DLD, COPD, Combined systolic/diastolic HF, CAD s/p CABG, CKD III, pacemaker in situ, Brain bleed s/p evacuation admitted for acute hypoxic respiratory failure 2/2 CHF exacerbation Acute Hypoxic Respiratory Failure possibly 2/2 systolic/diastolic CHF exacerbation w/ pulmonary edema - Echo: global hypokinesis, EF 40-45%, no change from June 2016 - Patient currently dry, normal breath sounds, asymptomatic, no peripheral edema - Patient experienced asymptomatic hypotension yesterday of 80/48, lasix dosing was held and bolus of 250 mL NSS administered. BP responded appropriately. - Slight bump in Cr to 1.5, likely related to over-diuresis Recommend holding lasix at this time - Currently 96% on Room air - Recommend continued pulse ox and physical exam, watching for fluid overload - Recommend repeat BMP on Feb 12 Based on exam/BMP results in 2 days, may choose to resume home dose of lasix (40) or half dose. Fall likely 2/2 ambulatory dysfunction - no fractures on imaging. CAD s/p CAbg, Pacer 2/2 heart block - continue Coreg 6.25, aspirin 81, lovastatin 40, Imdur 30, diovan 40 - Troponin mildly elevated on admission at 0.051 but trending down, most recent 0.020 - Patient asymptomatic; likely demand related - Echo showed no change from previous June 2016 COPD: - Continue Duoneb, Combivent CKD stage III- stable Incidental finding of pulmonary nodule - New pulmonary nodule seen on Chest CT, measuring 5mm. - Per guidelines, since she has remote smoking hx, should re-scan in 1 year. Current Hospital Diet Patient's current hospital diet: AHA Diet (Heart Healthy), Low Sodium Diet (2gm Na) Discharge Diet Recommended Diet: AHA Diet (Heart Healthy), Low Sodium Diet (2gm Na) Pending Studies Studies pending at discharge: no Laboratory Results Hemoglobin A1c Test 11/25/16 13:50 Range/Units Estimated Average Glucose 157 mg/dl Hemoglobin A1c 7.1 H 4.5-5.6 % Medical Emergencies . Who to Call and When: Medical Emergencies: If at any time you feel your situation is an emergency, please call 911 immediately. . Non-Emergent Contact Non-Emergency issues call your: Primary Care Provider . . "Provider Documentation" section prepared by Myrtle Vilchis. . VTE Core Measure Inpt VTE Proph given/why not?: SCD's
--- NOTE | 2017-02-10 11:00 | NUR ---
Case management note. Spoke with pt and plan for [facility] at discharge. Spoke with Jenny at [facility] and they can accept pt today. Updated nurse navigator. Pts family to transport pt. Gave nursing phone number to call report. Case management to follow with pt.
[2017-02-10 11:12] VITALS: BP 165/75; PULSE 75; TEMP 36.7; O2SAT 96
[2017-02-10] MEDS ORDERED: LSX40 PO (13:34)
[2017-02-10 14:02] VITALS: BP 165/75; PULSE 75; TEMP 36.7; O2SAT 96
--- NOTE | 2017-02-10 14:25 | NUR ---
A: Discharge instructions given to patient and all questions answered. Saline lock and tele removed. Pt d/c to home with family and all belongings.
--- NOTE | 2017-02-10 14:49 | NUR ---
A: Report called to Malia at [facility].
--- NOTE | 2017-02-10 22:29 | Discharge Summary ---
Discharge Summary Date of Service Feb 10, 2017. Discharge Summary Admission Date: Feb 08, 2017 at 00:02 Discharge Date: Feb 10, 2017 Discharge Disposition: Rehab Principal Diagnosis: Acute hypoxic respiratory failure 2/2 CHF exacerbation Problems/Secondary Diagnoses: Ambulatory dysfunction, CAD, COPD, CKD III, incidental finding of pulmonary nodule Immunizations: Have You Had Influenza Vaccine: Yes Influenza Vaccine Date: Nov 08, 2011 History of Tetanus Vaccine?: No History of Pneumococcal: No Pneumococcal Date: Jan 01, 2009 History of Hepatitis B Vaccine: No Medication Reconciliation Continued Medications: Aspirin (Aspirin Ec) 81 Mg Tab 81 MG PO DAILY Calcium Carbonate (Calcium 600) 600 Mg Tab 1 TAB PO BID Carvedilol (Coreg) 6.25 Mg Tab 6.25 MG PO BID, TAB Furosemide (Furosemide) 40 Mg Tab 40 MG PO DAILY for 30 Days, #30 (This prescription has been renewed) Gabapentin (Gabapentin) 400 Mg Cap 400 MG PO BID Ipratropium-Albuterol (Combivent Respimat) 1 Aer Aer 1 PUFF INH PRN for SOB/Wheezing, #4 Ipratropium-Albuterol (Duoneb) 3 Ml Nebu 1 TREATMENT INH Q4H PRN for SOB/Wheezing, INHA Isosorbide Mononitrate Ext Rel (Imdur Ext Rel) 30 Mg Tabcr 30 MG PO DAILY Lovastatin (Mevacor) 40 Mg Tab 40 MG PO DAILY, #30 Nortriptyline HCl (Nortriptyline HCl) 10 Mg Cap 20 MG PO HS Pantoprazole (Pantoprazole Sodium) 40 Mg Tab 40 MG PO DAILY, #30 Valsartan (Valsartan) 40 Mg Tab 40 MG PO BID Discharge Exam ROS: Constitutional: No fever, No chills, No sweats, No weight loss, No weakness , No fatigue, No problem reported Respiratory: No cough, No sputum, No wheezing, No dyspnea at rest, No hemoptysis, No problem reported Cardiovascular: No chest pain, No orthopnea, No PND, No edema, No claudication, No palpitations, No problem reported Female : No dysuria, No urinary frequency, No hematuria, No incontinence All Other Systems: Reviewed and Negative PE General Appearance: WD/WN, no apparent distress Eyes: normal inspection, PERRL, EOMI, sclerae normal ENT: hearing grossly normal Neck: supple, no JVD, no carotid bruits, trachea midline Respiratory/Chest: chest non-tender, no respiratory distress, no accessory muscle use, Cardiovascular: regular rate, rhythm, no edema, no gallop Abdomen: normal bowel sounds, non tender, soft Extremities: normal range of motion, non-tender, normal inspection, no pedal edema, no calf tenderness 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, no motor/sensory deficits, alert, normal mood/affect, oriented x 3 Skin: normal color, warm/dry, no rash Hospital Course This is an 81 y/o F PMH HTN, DLD, COPD, Combined systolic/diastolic HF, CAD s/p CABG, CKD III, pacemaker in situ, Brain bleed s/p evacuation admitted for acute hypoxic respiratory failure 2/2 CHF exacerbation Acute Hypoxic Respiratory Failure possibly 2/2 systolic/diastolic CHF exacerbation w/ pulmonary edema - Echo: global hypokinesis, EF 40-45%, no change from June 2016 - Patient currently dry, normal breath sounds, asymptomatic, no peripheral edema - Patient experienced asymptomatic hypotension during stay of 80/48, lasix dosing was held and bolus of 250 mL NSS administered. BP responded appropriately. - Slight bump in Cr to 1.5, likely related to over-diuresis Recommend holding lasix at this time - On discharge pulse ox 96% on RA - Recommend continued pulse ox and physical exam, watching for fluid overload - Recommend repeat BMP on Feb 12 Based on exam/BMP results in 2 days, may choose to resume home dose of lasix (40) or half dose. Fall likely 2/2 ambulatory dysfunction - no fractures on imaging. - Inpatient rehabilitation recommended, patient to go to [facility] [place] CAD s/p CABG, Pacer 2/2 heart block - continue Coreg 6.25, aspirin 81, lovastatin 40, Imdur 30, diovan 40 - Troponin mildly elevated on admission at 0.051 but trended down to 0.020 - Patient asymptomatic; likely demand related - Echo showed no change from previous June 2016 COPD: - Continue Duoneb, Combivent CKD stage III- stable Incidental finding of pulmonary nodule - New pulmonary nodule seen on Chest CT, measuring 5mm. - Per guidelines, since she has remote smoking hx, should re-scan in 1 year. - Patient aware and amenable Resident Physician Supervision Note: I interviewed and examined the patient. Discussed with Dr. Schneekloth and agree with findings and plan as documented in the note. Any exceptions or clarifications are listed here: None Documented By: Latrell Wade feeling better ready to go to rehab vitals noted nad breathing unlabored no pallor or icterus acute on chronic CHF - improved. supportive care. hold lasix for now until clinically warranted to resume acute renal insufficiency - due to diuretics required to treat CHF - hold diuretics and follow BMP - follow also once lasix resumed stable for rehab. Total Time Spent: Less than 30 minutes This includes examination of the patient, discharge planning, medication reconciliation, and communication with other providers. Discharge Instructions Please refer to the electronic Patient Visit Report (Discharge Instructions) for additional information. Additional Copies To Crystal Mcguire, C.R.N.P Resident Tracking Resident Involvement: Resident Care Provided Care Provided: Adult [facility]
[2017-07-31] MEDS ORDERED: FURO-85 PO (14:50)
[2017-07-31] MEDS ORDERED: VALS40TA2 PO (14:50)
[2017-07-31] MEDS ORDERED: CLIN300C2 PO (14:50)
[2017-07-31] MEDS ORDERED: PANT40TA PO (14:50)
[2017-07-31] MEDS ORDERED: POTA-639 PO (14:50)
[2017-07-31] MEDS ORDERED: CARV12.52 PO (14:50)
[2017-07-31] MEDS ORDERED: TIOT1SPR INH (14:52)
[2017-08-03] MEDS ORDERED: MOMLX PO (11:32)
[2017-08-03] MEDS ORDERED: SENN-61 PO (11:32)
[2017-08-03] MEDS ORDERED: INSDGIPEN SQ (11:32)
[2017-08-03] MEDS ORDERED: LDDP5 TD (11:32)
[2017-08-03] MEDS ORDERED: Remove Lidoderm Patch (11:32)
[2017-08-03] MEDS ORDERED: NVLG SQ (11:32)
[2017-08-03] MEDS ORDERED: CLC100 PO (11:32)
[2017-08-03] MEDS ORDERED: HYDR-5688 PO (11:39)
== END 2017-02-10 14:32 | DRG 291 ==
LOC: C.EDB 14:45 → C.2T 02-08 00:02 → ENRESERV 02-08 00:18
PROVIDERS: ADMIT Hospitalist; ATTEND Family Medicine
DX: I13.0 Hypertensive heart and chronic kidney disease with heart failure and stage 1 through stage 4 chronic kidney disease, or unspecified chronic kidney disease (principal); J96.01 Acute respiratory failure with hypoxia; I50.43 Acute on chronic combined systolic (congestive) and diastolic (congestive) heart failure; I48.91 Unspecified atrial fibrillation; N18.3 Chronic kidney disease, stage 3 (moderate); I25.10 Atherosclerotic heart disease of native coronary artery without angina pectoris; J44.9 Chronic obstructive pulmonary disease, unspecified; K21.9 Gastro-esophageal reflux disease without esophagitis; G47.30 Sleep apnea, unspecified; G62.9 Polyneuropathy, unspecified; R29.6 Repeated falls; Z66 Do not resuscitate; Z79.82 Long term (current) use of aspirin; Z79.899 Other long term (current) drug therapy; Z86.73 Personal history of transient ischemic attack (TIA), and cerebral infarction without residual deficits; Z87.891 Personal history of nicotine dependence; Z88.0 Allergy status to penicillin; Z88.2 Allergy status to sulfonamides; Z88.5 Allergy status to narcotic agent; Z91.81 History of falling; Z95.0 Presence of cardiac pacemaker; Z95.1 Presence of aortocoronary bypass graft

== ENCOUNTER 2017-03-20 11:04 | Inpatient (IN) | payer OTHER ==
[~2017-03-20] VITALS: Ht 152.4 cm; Wt 55.2 kg
[2017-03-20] VITALS (8 sets, daily range): BP systolic 110–178; BP diastolic 70–79; PULSE 71–80; TEMP 36.4–36.6; O2SAT 91–98; Ht 152.4 cm; Wt 55.2 kg
[~2017-03-20 11:04] MED LIST changes: +CALC600T PO; +CARV6.25 PO; -CRG625 PO; -GABA-1220 PO; -IPRA-64 INH; +IPRASOL4 INH; -ISOS-11 PO; +ISOS30TA35 PO; +LSX40 PO; -LVQ750 PO; +NORT10CA4 PO; +NRN400 PO; -PRD20 PO; +VALS-56 PO
[2017-03-20] MEDS ORDERED: ATRINS NEB (12:05)
[2017-03-20] MEDS ORDERED: CALC500C70 PO (12:05)
[2017-03-20 12:09] LABS: BASO % 0.3 %; BASO ABS # 0.03 K/uL (0-0.2); EOS % 0.6 %; EOS ABS # 0.05 K/uL (0-0.5); HEMATOCRIT 43.1 % (37-47); HEMOGLOBIN 14.1 g/dL (12.0-16.0); IG# 0.03 K/uL (0.00-0.02); LYMPH ABS # 2.96 K/uL (1.2-3.4); MEAN CELL VOLUME 84.2 fL (80-100); MEAN CORPUSCULAR HEMOGLOBIN 27.5 pg (25-34); MEAN CORPUSCULAR HGB CONC 32.7 g/dl (32-36); MEAN PLATELET VOLUME 11.4 fL (7.4-10.4); MONO % 6.8 %; MONO ABS # 0.59 K/uL (0.11-0.59); NEUT ABS # 5.04 K/uL (1.4-6.5); PLATELET COUNT 194 K/uL (130-400); RED CELL DISTRIBUTION WIDTH CV 16.3 % (11.5-14.5); RED CELL DISTRIBUTION WIDTH SD 50.3 fL (36.4-46.3)
[2017-03-20] MEDS ORDERED: DILTIAZEM HCL 5 MG/ML 5 ML VIAL IV STA ×2 (12:11→12:49)
[2017-03-20] MEDS ORDERED: ASPIRIN 81 MG CHEW PO STA (12:11)
[2017-03-20] MEDS ORDERED: OPTIRAY 320 IV PRN (12:15)
--- NOTE | 2017-03-20 12:16 | EMERGENCY ROOM VISIT NOTE ---
History Report prepared by Chaim: Jacky Joyner Under the Supervision of: Dr. Dex Martins M.D. First contact with patient: 11:59 Chief Complaint: STROKE SYMPTOMS Stated Complaint: LEFT SIDE NOT WORKING Nursing Triage Summary: Family reports between "a quarter and 10 minutes till 11am." pt was slurring words, left face and eye drooping, left side of mouth closed and not moving despite right side moving pt rubbed face and stated "it feels numb." reports no pain to left arm and leg pt arrives to room clear speech, left facial feeling to palpation, reports no numbness, smile even bilateral arms and legs equal strength pt clearly speaking pt able to recall events based on family story but states she cannot remember it happening pt reports this AM took 81mg Aspirin pt does report this episode has happened before and resolves in the same amount of time pt reports no migraines and HX of Traumatic brain injury History of Present Illness The patient is an 81 year old female who presents to the Emergency Room with concerns over now resolved stroke-like symptoms that the patient's family noticed this morning at 1055, 1 hour prior to arrival. The family notes that she was exhibiting a facial droop, slurred speech, and memory loss. Upon arrival to the Emergency Department the patient has not complaints and states that she "is ready to go home." She then noted some chronic pain in her abdomen that she has been dealing with for a couple weeks. She had a CT scan this past January which showed a mass. She was instructed to have a follow up CT a few months later to see if the mass has grown. She was recently taken off of her Lasix medication secondary to poor kidney function. Review of the patient's medical history showed that she has had an IVC placed but is not currently on any blood thinning medications aside from Baby Aspirin. The reason for the placement of the IVC is unknown by the patient or family. Source of History: patient, family Onset: 1 hour prior to arrival Position: other (Neuro) Quality: other (Stroke Sx) Timing: resolved Associated Symptoms: + abdominal pain Note: Facial droop, slurred speech, memory loss Review of Systems See HPI for pertinent positives & negatives. A total of 10 systems reviewed and were otherwise negative. Past Medical & Surgical Medical Problems: (1) AORTOCORONARY BYPASS (2) ATRIAL FIBRILLATION (3) Atrial fibrillation with RVR (4) CHRONIC KIDNEY DISEASE, STAGE III (MODERATE) (5) CHRONIC SYSTOLIC HRT FAILURE (6) CORON ATHEROSCLER NOS TYPE VESSEL, EEK OR GRAFT (7) CVA (8) Elevated troponin (9) Facial droop (10) Implantation of cardiac pacemaker (11) Lower GI bleed (12) PNEUMONIA, ORGANISM NOS (13) Seizure (14) Subdural hematoma Family History Heart disease Social History Smoking Status: Former Smoker Alcohol Use: none Drug Use: none Marital Status: Housing Status: lives alone Occupation Status: retired Current/Historical Medications Scheduled Aspirin (Aspirin Ec), 81 MG PO DAILY Calcium/Vitamin D (Os-Emile 500 Plus D), 2 TAB PO BID Carvedilol (Coreg), 6.25 MG PO BID Gabapentin (Gabapentin), 400 MG PO BID Ipratropium [place] (Ipratropium [place]), 1 VIAL NEB Q4 Isosorbide Mononitrate Ext Rel (Imdur Ext Rel), 30 MG PO DAILY Lovastatin (Mevacor), 40 MG PO DAILY Nortriptyline HCl (Nortriptyline HCl), 20 MG PO HS Pantoprazole (Pantoprazole Sodium), 40 MG PO DAILY Valsartan (Valsartan), 40 MG PO QAM Scheduled PRN Ipratropium-Albuterol (Combivent Respimat), 1 PUFF INH for SOB/Wheezing Allergies Coded Allergies: Cephalosporins (Verified Allergy, Severe, TONGUE SWELLING WITH KEFLEX, 03/20) Penicillins (Verified Allergy, Severe, HIVES, SOB, 03/20/17) Tamsulosin (Verified Allergy, Severe, SHORTNESS OF BREATH, 03/20/17) Butalbital (Verified Allergy, Intermediate, SHORTNESS OF BREATH, 03/20/17) Levetiracetam (Verified Allergy, Intermediate, RASH, 03/20/17) Sulfa Antibiotics (Verified Allergy, Unknown, "SULFA DRUGS" - UNKNOWN, 03/20) Morphine (Verified Adverse Reaction, Unknown, hallucinations, 03/20/17) Physical Exam Vital Signs Date Time Temp Pulse Resp B/P (MAP) Pulse Ox O2 Delivery O2 Flow Rate FiO2 03/20/17 16:41 69 16 156/86 94 Room Air 03/20/17 15:11 72 16 155/79 95 Room Air 03/20/17 13:45 82 16 118/87 94 Room Air 03/20/17 12:06 130 03/20/17 11:39 98 Room Air 03/20/17 11:33 139 16 115/75 98 Room Air 03/20/17 11:07 36.3 104 18 118/63 97 Room Air Physical Exam GENERAL: Patient is a healthy-appearing well-nourished [] HEAD: Normocephalic atraumatic EYES: Ocular movements intact pupils equal and react to light OROPHARYNX mucous membranes are moist no exudates present no erythema or edema present NECK: Supple no nuchal rigidity CHEST: Good equal expansion LUNGS: Clear and equal to auscultation CARDIAC: Normal S1 and S2 ABDOMEN: Soft, no guarding. There is tenderness over the left lower quadrant over the abdomen. BACK: No CVA tenderness EXTREMITIES: No pain upon palpation normal muscle strength in all groups no clubbing cyanosis or edema NEURO: Patient is following commands and answering questions appropriately. Alert and oriented x3 Cranial Nerves 2-12 grossly intact Medical Decision & Procedures ER Provider Diagnostic Interpretation: Radiology results as stated below per my review and radiologist interpretation: CT SCAN OF THE ABDOMEN AND PELVIS WITH IV CONTRAST CLINICAL HISTORY: Generalized abdominal pain. COMPARISON STUDY: Abdominal CT dated 02/07/2017. TECHNIQUE: Following the IV administration of 93 cc of Optiray 320, CT scan of the abdomen and pelvis is performed from the lung bases to the proximal femora. Images are reviewed in the axial, sagittal, and coronal planes. IV contrast was administered without complication. A dose lowering technique was utilized adhering to the principles of ALARA. FINDINGS: Lung bases: The heart is normal in size and without pericardial effusion. Pacemaker leads are noted. The coronary arteries are densely calcified. Probable scarring is again seen at the left lung base. Dependent atelectasis is noted. Trace pleural effusions are identified. No airspace consolidation is seen typical for pneumonia. A tiny hiatal hernia is observed. Liver: The contrast-enhanced liver is normal in size, contour, and attenuation. Fatty infiltration is seen adjacent to falciform ligament. There is minimal central intrahepatic biliary ductal dilatation. The hepatic veins and portal veins are patent. Gallbladder: Surgically absent noting clips in the gallbladder fossa. Spleen: Normal in size and attenuation. Pancreas: Atrophic and grossly unremarkable. Adrenal glands: Unremarkable. Kidneys: The contrast enhanced kidneys are atrophic and without hydronephrosis. The kidneys enhance symmetrically. Foci of cortical scarring are present bilaterally, left greater than right. Renovascular calcifications are observed. Small nonobstructing calculi are suggested bilaterally. A retroaortic left renal vein is incidentally noted. Abdominal vasculature: The abdominal aorta is normal in course and caliber noting advanced atherosclerotic calcification. Bowel: There is moderate sigmoid diverticulosis without CT evidence of acute diverticulitis. A 13 mm lipoma is incidentally noted in the right colon on image #135. No bowel obstruction is seen. The appendix is not identified and reported surgically absent. Peritoneum: There is no intraperitoneal free air or abdominal ascites. Lymphadenopathy: None. Pelvic viscera: Evaluation of the pelvis is significantly degraded by streak artifact from orthopedic hardware in the hips. The bladder is normal as visualized. The uterus is surgically absent. No adnexal lesion is seen. Surgical clips are noted in the right groin. Skeletal structures: The skeletal structures are osteopenic. A compression deformity is noted in the body of L1 and new from 02/07/2017. This is likely acute, with minimal retropulsion of fragments and paravertebral edema. Mild to moderate lumbosacral spondylosis is observed. No lytic or blastic lesions are seen. A right hip arthroplasty is in place. Chronic posttraumatic deformity and postoperative change is seen in the left femur. 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 IMPRESSION: 1. There is a mild and acute appearing compression fracture of L1, new from 02/07/2017. Correlate for point tenderness at this level. 2. Cardiomegaly and trace pleural effusions. 3. Moderate sigmoid diverticulosis without CT evidence of acute diverticulitis. 4. Additional findings as above. Electronically signed by: Christos Ochoa M.D. 03/20/2017 1:51 PM Dictated Date/Time: 03/20/2017 1:43 PM CHEST ONE VIEW PORTABLE CLINICAL HISTORY: Stroke mental status change COMPARISON STUDY: 02/07/2017 FINDINGS: Chronic fibrotic scarring left lung base. Prior median sternotomy and valve replacement. Permanent bipolar cardiac pacemaker. No focal infiltrate. IMPRESSION: Chronic and postoperative change. No acute process. The above report was generated using voice recognition software. It may contain grammatical, syntax or spelling errors. Electronically signed by: Jered Gaona M.D. 03/20/2017 12:17 PM Dictated Date/Time: 03/20/2017 12:16 PM HEAD WITHOUT CONTRAST (CT) CLINICAL HISTORY: 81 years-old Female with Stroke. Acute strokelike symptoms with left-sided weakness. TECHNIQUE: Multiple axial CT images of the head were obtained without contrast. A dose lowering technique was utilized adhering to the principles of ALARA. CT DOSE: 812.81 mGy.cm COMPARISON: Head CT 02/07/2017. FINDINGS: No acute intracranial hemorrhage, midline shift, intracranial mass, hydrocephalus, territorial ischemia or abnormal extra-axial collection. Moderate atrophy with ex vacuo ventriculomegaly. Ill-defined areas of low attenuation are again seen within the subcortical, deep and periventricular white matter suggesting chronic microvascular ischemic changes. Senescent calcifications of the lentiform nuclei are noted bilaterally. Unchanged encephalomalacia of the left cerebellar hemisphere suggests remote infarction. Remote silvano hole of the right parietal calvarium. Vascular calcifications are seen at the level of the skull base. The calvarium is intact. The paranasal sinuses, mastoid air cells, and middle ear cavities are clear. IMPRESSION: No acute intracranial abnormality. The above report was generated using voice recognition software. It may contain grammatical, syntax or spelling errors. Electronically signed by: Andry Alcantar M.D. 03/20/2017 1:45 PM Dictated Date/Time: 03/20/2017 1:41 PM Laboratory Results 03/20/17 11:25 Red Blood Count 5.12, Mean Corpuscular Volume 84.2, Mean Corpuscular Hemoglobin 27.5, Mean Corpuscular Hemoglobin Concent 32.7, Mean Platelet Volume 11.4, Neutrophils (%) (Auto) 58.0, Lymphocytes (%) (Auto) 34.0, Monocytes (%) (Auto) 6.8, Eosinophils (%) (Auto) 0.6, Basophils (%) (Auto) 0.3, Neutrophils # (Auto) 5.04, Lymphocytes # (Auto) 2.96, Monocytes # (Auto) 0.59, Eosinophils # (Auto) 0.05, Basophils # (Auto) 0.03 03/20/17 11:25 Test 03/20/17 11:25 03/20/17 14:02 03/20/17 17:38 White Blood Count 8.70 K/uL (4.8-10.8) Red Blood Count 5.12 M/uL (4.2-5.4) Hemoglobin 14.1 g/dL (12.0-16.0) Hematocrit 43.1 % (37-47) Mean Corpuscular Volume 84.2 fL (80-100) Mean Corpuscular Hemoglobin 27.5 pg (25-34) Mean Corpuscular Hemoglobin Concent 32.7 g/dl (32-36) Platelet Count 194 K/uL (130-400) Mean Platelet Volume 11.4 fL (7.4-10.4) Neutrophils (%) (Auto) 58.0 % Lymphocytes (%) (Auto) 34.0 % Monocytes (%) (Auto) 6.8 % Eosinophils (%) (Auto) 0.6 % Basophils (%) (Auto) 0.3 % Neutrophils # (Auto) 5.04 K/uL (1.4-6.5) Lymphocytes # (Auto) 2.96 K/uL (1.2-3.4) Monocytes # (Auto) 0.59 K/uL (0.11-0.59) Eosinophils # (Auto) 0.05 K/uL (0-0.5) Basophils # (Auto) 0.03 K/uL (0-0.2) RDW Standard Deviation 50.3 fL (36.4-46.3) RDW Coefficient of Variation 16.3 % (11.5-14.5) Immature Granulocyte % (Auto) 0.3 % Immature Granulocyte # (Auto) 0.03 K/uL (0.00-0.02) Prothrombin Time 10.7 SECONDS (9.0-12.0) Prothromb Time International Ratio 1.0 (0.9-1.1) Activated Partial Thromboplast Time 25.9 SECONDS (21.0-31.0) Partial Thromboplastin Ratio 1.0 Anion Gap 9.0 mmol/L (3-11) Est Creatinine Clear Calc Drug Dose 17.5 ml/min Estimated GFR () 30.7 Estimated GFR (Non- 26.5 BUN/Creatinine Ratio 13.7 (10-20) Calcium Level 10.3 mg/dl (8.5-10.1) Magnesium Level 1.9 mg/dl (1.8-2.4) Total Creatine Kinase 86 U/L (26-192) Creatine Kinase MB 3.4 ng/ml (0.5-3.6) Creatine Kinase MB Ratio 4.0 (0-3.0) Influenza Type A (RT-PCR) Neg for Influ A (NEG) Influenza Type B (RT-PCR) Neg for Influ B (NEG) Labs reviewed by ED physician. Medications Administered Medications (Trade) Dose Ordered Sig/[place] Route Start Time Stop Time Status Last Admin Dose Admin Sodium Chloride 1,000 ml @ 50 mls/hr Q20H IV 03/20/17 12:00 04/19/17 11:59 03/20/17 12:35 50 MLS/HR Diltiazem HCl (Cardizem Inj) 12 mg NOW STAT IV 03/20/17 12:11 03/20/17 12:12 DC 03/20/17 12:34 12 MG Aspirin (Aspirin Chew) 324 mg NOW STAT PO 03/20/17 12:11 03/20/17 12:12 DC 03/20/17 12:35 324 MG Sodium Chloride 500 ml @ 999 mls/hr Q31M STAT IV 03/20/17 12:26 03/20/17 12:56 DC 03/20/17 12:26 999 MLS/HR Diltiazem HCl (Cardizem Inj) 19 mg NOW STAT IV 03/20/17 12:49 03/20/17 12:51 DC 03/20/17 13:46 19 MG ECG Indication: other (Stroke Sx, A-fib ) Rate (beats per minute): 132 Rhythm: atrial fibrillation (with RVR ) Findings: other (Old septal infarct is present. ) Comparison ECG Date: 02/08/2017 Change: A-fib with RVR has replaced Sinus Rhythm. Patient's electrocardiogram per my interpretation. ED Course 1201: Past medical records reviewed. The patient was evaluated in room C3. A complete history and physical examination was performed. 1202: Ordered Sodium Chloride 1000 mL @ 50 mL/hr IV. 1211: Ordered Aspirin 324 mg PO, Cardizem 12 mg IV. 1226: Ordered Sodium Chloride 500 mL @ 999 mL/hr IV. 1249: Ordered Cardizem 19 mg IV. 1352: I discussed the case with Dr. Sung - [facility] Hospitalist. He will evaluate the patient for further treatment. Medical Decision Differential diagnosis: Etiologies such as metabolic, infection, hypo/hyperglycemia, electrolyte abnormalities, cardiac sources, intracerebral event, toxicologic, neurologic, as well as others were entertained. This is a 81-year-old female who presents emergency department complaining of abdominal pain along with left-sided facial droop. The patient is normally a paced rhythm however upon arrival to the emergency department she is in A. fib with RVR and I believe that the patient may of thrown a clot that cause her strokelike symptoms. She has an elevation in her troponin. She was given 2 doses of Cardizem in the emergency department which converted the patient back to a paced rhythm. I did discuss the case with the hospitalist service who agreed to admit the patient. Patient family were in agreement with the treatment plan. Consults Time Called: [phone] Consulting Physician: Dr. Ana Lilia BARRAZA Hospitalist Returned Call: [phone] I discussed the case with Dr. Ana Lilia [facility]. He will evaluate the patient for further treatment. Impression Primary Impression: Atrial fibrillation with RVR Additional Impression: TIA (transient ischemic attack) Critical Care I have personally spent greater than 30 minutes of critical care time in the direct management of this patient. This includes bedside care, interpretation of diagnostic studies, and testing, discussion with consultants, patient, and family members, and other required patient management activities. This 30 minutes is in excess of all separately billable procedures. Scribe Attestation The scribe's documentation has been prepared under my direction and personally reviewed by me in its entirety. I confirm that the note above accurately reflects all work, treatment, procedures, and medical decision making performed by me. Departure Information Dispostion Being Evaluated By Hospitalist Referrals Crystal Mcguire, C.R.N.P (PCP) Patient Instructions My [facility] Problem Qualifiers Additional Impression: TIA (transient ischemic attack) Transient cerebral ischemia type: unspecified Qualified Codes: G45.9 - Transient cerebral ischemic attack, unspecified
[2017-03-20 12:17] LABS: PTT PATIENT 25.9 SECONDS (21.0-31.0)
[2017-03-20 12:24] LABS: CALCIUM 10.3 mg/dl (8.5-10.1); CREATININE 1.75 mg/dl (0.60-1.20); POTASSIUM 3.9 mmol/L (3.5-5.1)
[2017-03-20] MEDS ORDERED: SODIUM CHLORIDE 0.9% 500ML 500 ML IV STA (12:26)
[2017-03-20 12:30] LABS: CKMB 3.4 ng/ml (0.5-3.6)
[2017-03-20] MEDS: SODIUM CHLORIDE 0.9% 1000ML 1,000 ML IV SCH ×3 (12:35→19:40)
--- NOTE | 2017-03-20 13:47 | DIAGNOSTIC IMAGING REPORT ---
HEAD WITHOUT CONTRAST (CT) CLINICAL HISTORY: 81 years-old Female with Stroke. Acute strokelike symptoms with left-sided weakness. TECHNIQUE: Multiple axial CT images of the head were obtained without contrast. A dose lowering technique was utilized adhering to the principles of ALARA. CT DOSE: 812.81 mGy.cm COMPARISON: Head CT 02/07/2017. FINDINGS: No acute intracranial hemorrhage, midline shift, intracranial mass, hydrocephalus, territorial ischemia or abnormal extra-axial collection. Moderate atrophy with ex vacuo ventriculomegaly. Ill-defined areas of low attenuation are again seen within the subcortical, deep and periventricular white matter suggesting chronic microvascular ischemic changes. Senescent calcifications of the lentiform nuclei are noted bilaterally. Unchanged encephalomalacia of the left cerebellar hemisphere suggests remote infarction. Remote silvano hole of the right parietal calvarium. Vascular calcifications are seen at the level of the skull base. The calvarium is intact. The paranasal sinuses, mastoid air cells, and middle ear cavities are clear. IMPRESSION: No acute intracranial abnormality. The above report was generated using voice recognition software. It may contain grammatical, syntax or spelling errors. Electronically signed by: Andry Alcantar M.D. 03/20/2017 1:45 PM Dictated Date/Time: 03/20/2017 1:41 PM
--- NOTE | 2017-03-20 13:52 | DIAGNOSTIC IMAGING REPORT ---
CT SCAN OF THE ABDOMEN AND PELVIS WITH IV CONTRAST CLINICAL HISTORY: Generalized abdominal pain. COMPARISON STUDY: Abdominal CT dated 02/07/2017. TECHNIQUE: Following the IV administration of 93 cc of Optiray 320, CT scan of the abdomen and pelvis is performed from the lung bases to the proximal femora. Images are reviewed in the axial, sagittal, and coronal planes. IV contrast was administered without complication. A dose lowering technique was utilized adhering to the principles of ALARA. FINDINGS: Lung bases: The heart is normal in size and without pericardial effusion. Pacemaker leads are noted. The coronary arteries are densely calcified. Probable scarring is again seen at the left lung base. Dependent atelectasis is noted. Trace pleural effusions are identified. No airspace consolidation is seen typical for pneumonia. A tiny hiatal hernia is observed. Liver: The contrast-enhanced liver is normal in size, contour, and attenuation. Fatty infiltration is seen adjacent to falciform ligament. There is minimal central intrahepatic biliary ductal dilatation. The hepatic veins and portal veins are patent. Gallbladder: Surgically absent noting clips in the gallbladder fossa. Spleen: Normal in size and attenuation. Pancreas: Atrophic and grossly unremarkable. Adrenal glands: Unremarkable. Kidneys: The contrast enhanced kidneys are atrophic and without hydronephrosis. The kidneys enhance symmetrically. Foci of cortical scarring are present bilaterally, left greater than right. Renovascular calcifications are observed. Small nonobstructing calculi are suggested bilaterally. A retroaortic left renal vein is incidentally noted. Abdominal vasculature: The abdominal aorta is normal in course and caliber noting advanced atherosclerotic calcification. Bowel: There is moderate sigmoid diverticulosis without CT evidence of acute diverticulitis. A 13 mm lipoma is incidentally noted in the right colon on image #135. No bowel obstruction is seen. The appendix is not identified and reported surgically absent. Peritoneum: There is no intraperitoneal free air or abdominal ascites. Lymphadenopathy: None. Pelvic viscera: Evaluation of the pelvis is significantly degraded by streak artifact from orthopedic hardware in the hips. The bladder is normal as visualized. The uterus is surgically absent. No adnexal lesion is seen. Surgical clips are noted in the right groin. Skeletal structures: The skeletal structures are osteopenic. A compression deformity is noted in the body of L1 and new from 02/07/2017. This is likely acute, with minimal retropulsion of fragments and paravertebral edema. Mild to moderate lumbosacral spondylosis is observed. No lytic or blastic lesions are seen. A right hip arthroplasty is in place. Chronic posttraumatic deformity and postoperative change is seen in the left femur. 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 IMPRESSION: 1. There is a mild and acute appearing compression fracture of L1, new from 02/07/2017. Correlate for point tenderness at this level. 2. Cardiomegaly and trace pleural effusions. 3. Moderate sigmoid diverticulosis without CT evidence of acute diverticulitis. 4. Additional findings as above. Electronically signed by: Christos Ochoa M.D. 03/20/2017 1:51 PM Dictated Date/Time: 03/20/2017 1:43 PM
--- NOTE | 2017-03-20 15:18 | History and Physical ---
History & Physical Date & Time of Service: Mar 20, 2017 at 14:59 Chief Complaint: Left Side Not Working Primary Care Physician: Crystal Mcguire C.R.N.P History of Present Illness Source: patient, family, clinic records, hospital records 81 female with PMH of TIA, s/p CABGx2 (2010),subdural hematoma with residual seizures, presents to [facility] after experiencing stroke-like symptoms this morning. Patient is accompanied by children who state that they noticed left lip droop and slurring of speech 10:55 am. The patient's symptoms resolved shortly after arriving to the hospital. The patient denies motor or sensory defects and was able to ambulate normally after noticing the symptoms. The patient's family reports speech slurring at baseline and report now that her speech has returned to normal. She denies CP, SOB, LE swelling or syncopal episodes. She does report left sided symptoms with previous TIA. Patient report feeling unwell for a couple days with the following symptoms; diffused abdominal, fatigue, muscle aches, sinus congestion. She says that her abdominal pain is crampy in nature and she denies it being related to food or voiding. She reports having normal bowel movement 1-2 daily and denies melena or hematochezia. Patient denies burning with urination, but she does report a PMH of urinary retention and slow stream. Past Medical/Surgical History Medical Problems: (1) AORTOCORONARY BYPASS Status: Resolved (2) ATRIAL FIBRILLATION Status: Chronic (3) CHRONIC KIDNEY DISEASE, STAGE III (MODERATE) Status: Chronic (4) CHRONIC SYSTOLIC HRT FAILURE Status: Chronic (5) CORON ATHEROSCLER NOS TYPE VESSEL, PRAIRIE BAND OR GRAFT Status: Chronic (6) CVA Status: Chronic (7) Implantation of cardiac pacemaker Status: Chronic (8) PNEUMONIA, ORGANISM NOS Status: Chronic (9) Seizure Status: Chronic (10) Subdural hematoma Status: Chronic Family History Heart disease Social History Smoking Status: Former Smoker Drug Use: none Marital Status: Housing status: lives alone Occupational Status: retired Immunizations History of Influenza Vaccine: Yes Influenza Vaccine Date: Nov 08, 2011 History of Tetanus Vaccine?: No History of Pneumococcal: No Pneumococcal Date: Jan 01, 2009 History of Hepatitis B Vaccine: No Multi-Drug Resistant Organisms History of MDRO: No Allergies Coded Allergies: Cephalosporins (Verified Allergy, Severe, TONGUE SWELLING WITH KEFLEX, 2/5 /18) Penicillins (Verified Allergy, Severe, HIVES, SOB, 03/20/17) Tamsulosin (Verified Allergy, Severe, SHORTNESS OF BREATH, 03/20/17) Butalbital (Verified Allergy, Intermediate, SHORTNESS OF BREATH, 03/20/17) Levetiracetam (Verified Allergy, Intermediate, RASH, 03/20/17) Sulfa Antibiotics (Verified Allergy, Unknown, "SULFA DRUGS" - UNKNOWN, 03/20) Morphine (Verified Adverse Reaction, Unknown, hallucinations, 03/20/17) Home Medications Scheduled Aspirin (Aspirin Ec), 81 MG PO DAILY Calcium/Vitamin D (Os-Emile 500 Plus D), 2 TAB PO BID Carvedilol (Coreg), 6.25 MG PO BID Gabapentin (Gabapentin), 400 MG PO BID Ipratropium Midland (Ipratropium Midland), 1 VIAL NEB Q4 Isosorbide Mononitrate Ext Rel (Imdur Ext Rel), 30 MG PO DAILY Lovastatin (Mevacor), 40 MG PO DAILY Nortriptyline HCl (Nortriptyline HCl), 20 MG PO HS Pantoprazole (Pantoprazole Sodium), 40 MG PO DAILY Valsartan (Valsartan), 40 MG PO QAM Scheduled PRN Ipratropium-Albuterol (Combivent Respimat), 1 PUFF INH for SOB/Wheezing Review of Systems Constitutional: No fever, No chills, No sweats Eyes: No worsening of vision, No diplopia ENT: + nasal symptoms, No hearing loss, No sore throat Respiratory: No cough, No sputum, No wheezing, No shortness of breath, No dyspnea on exertion Cardiovascular: No chest pain, No orthopnea, No palpitations Abdomen: + pain, No nausea, No vomiting, No diarrhea, No constipation Genitourinary - Female: + urinary retention, No dysuria, No urinary frequency Neurologic: No memory loss, No paralysis, No weakness, No numbness/tingling, No vertigo, No balance problems Physical Exam Vital Signs Date Time Temp Pulse Resp B/P (MAP) Pulse Ox O2 Delivery O2 Flow Rate FiO2 03/20/17 13:45 82 16 118/87 94 Room Air 03/20/17 12:06 130 03/20/17 11:39 98 Room Air 2/5/18 11:33 139 16 115/75 98 Room Air 03/20/17 11:07 36.3 104 18 118/63 97 Room Air General Appearance: WD/WN, no apparent distress Head: normocephalic, atraumatic Neck: supple, no adenopathy Respiratory/Chest: chest non-tender, lungs clear, normal breath sounds, no respiratory distress, no accessory muscle use Cardiovascular: regular rate, rhythm, no edema, no murmur Abdomen/GI: normal bowel sounds, soft, no pulsatile mass, + pertinent finding ( diffused tenderness) Neurologic/Psych: insurance assistant II-XII nml as tested, no motor/sensory deficits, alert, normal mood/affect, oriented x 3, + pertinent finding (Speech is slurred) Skin: normal color, warm/dry, no rash Diagnostics Laboratory Results Results Past 24 Hours Test 03/20/17 11:25 03/20/17 14:02 Range/Units White Blood Count 8.70 4.8-10.8 K/uL Red Blood Count 5.12 4.2-5.4 M/uL Hemoglobin 14.1 12.0-16.0 g/dL Hematocrit 43.1 37-47 % Mean Corpuscular Volume 84.2 80-100 fL Mean Corpuscular Hemoglobin 27.5 25-34 pg Mean Corpuscular Hemoglobin Concent 32.7 32-36 g/dl Platelet Count 194 130-400 K/uL Mean Platelet Volume 11.4 7.4-10.4 fL Neutrophils (%) (Auto) 58.0 % Lymphocytes (%) (Auto) 34.0 % Monocytes (%) (Auto) 6.8 % Eosinophils (%) (Auto) 0.6 % Basophils (%) (Auto) 0.3 % Neutrophils # (Auto) 5.04 1.4-6.5 K/uL Lymphocytes # (Auto) 2.96 1.2-3.4 K/uL Monocytes # (Auto) 0.59 0.11-0.59 K/uL Eosinophils # (Auto) 0.05 0-0.5 K/uL Basophils # (Auto) 0.03 0-0.2 K/uL RDW Standard Deviation 50.3 36.4-46.3 fL RDW Coefficient of Variation 16.3 11.5-14.5 % Immature Granulocyte % (Auto) 0.3 % Immature Granulocyte # (Auto) 0.03 0.00-0.02 K/uL Prothrombin Time 10.7 9.0-12.0 SECONDS Prothromb Time International Ratio 1.0 0.9-1.1 Activated Partial Thromboplast Time 25.9 21.0-31.0 SECONDS Partial Thromboplastin Ratio 1.0 Sodium Level 141 136-145 mmol/L Potassium Level 3.9 3.5-5.1 mmol/L Chloride Level 102 98-107 mmol/L Carbon Dioxide Level 29 21-32 mmol/L Anion Gap 9.0 3-11 mmol/L Blood Urea Nitrogen 24 7-18 mg/dl Creatinine 1.75 0.60-1.20 mg/dl Est Creatinine Clear Calc Drug Dose 17.5 ml/min Estimated GFR () 30.7 Estimated GFR (Non- 26.5 BUN/Creatinine Ratio 13.7 10-20 Random Glucose 171 70-99 mg/dl Calcium Level 10.3 8.5-10.1 mg/dl Magnesium Level 1.9 1.8-2.4 mg/dl Total Creatine Kinase 86 26-192 U/L Creatine Kinase MB 3.4 0.5-3.6 ng/ml Creatine Kinase MB Ratio 4.0 0-3.0 Troponin I 0.105 0-0.045 ng/ml Diagnostic Radiology CHEST ONE VIEW PORTABLE CLINICAL HISTORY: Stroke mental status change COMPARISON STUDY: 02/07/2017 FINDINGS: Chronic fibrotic scarring left lung base. Prior median sternotomy and valve replacement. Permanent bipolar cardiac pacemaker. No focal infiltrate. IMPRESSION: Chronic and postoperative change. No acute process. Lung bases: The heart is normal in size and without pericardial effusion. Pacemaker leads are noted. The coronary arteries are densely calcified. Probable scarring is again seen at the left lung base. Dependent atelectasis is noted. Trace pleural effusions are identified. No airspace consolidation is seen typical for pneumonia. A tiny hiatal hernia is observed. Liver: The contrast-enhanced liver is normal in size, contour, and attenuation. Fatty infiltration is seen adjacent to falciform ligament. There is minimal central intrahepatic biliary ductal dilatation. The hepatic veins and portal veins are patent. Gallbladder: Surgically absent noting clips in the gallbladder fossa. Spleen: Normal in size and attenuation. Pancreas: Atrophic and grossly unremarkable. Adrenal glands: Unremarkable. Kidneys: The contrast enhanced kidneys are atrophic and without hydronephrosis. The kidneys enhance symmetrically. Foci of cortical scarring are present bilaterally, left greater than right. Renovascular calcifications are observed. Small nonobstructing calculi are suggested bilaterally. A retroaortic left renal vein is incidentally noted. Abdominal vasculature: The abdominal aorta is normal in course and caliber noting advanced atherosclerotic calcification. Bowel: There is moderate sigmoid diverticulosis without CT evidence of acute diverticulitis. A 13 mm lipoma is incidentally noted in the right colon on image #135. No bowel obstruction is seen. The appendix is not identified and reported surgically absent. Peritoneum: There is no intraperitoneal free air or abdominal ascites. Lymphadenopathy: None. Pelvic viscera: Evaluation of the pelvis is significantly degraded by streak artifact from orthopedic hardware in the hips. The bladder is normal as visualized. The uterus is surgically absent. No adnexal lesion is seen. Surgical clips are noted in the right groin. Skeletal structures: The skeletal structures are osteopenic. A compression deformity is noted in the body of L1 and new from 02/07/2017. This is likely acute, with minimal retropulsion of fragments and paravertebral edema. Mild to moderate lumbosacral spondylosis is observed. No lytic or blastic lesions are seen. A right hip arthroplasty is in place. Chronic posttraumatic deformity and postoperative change is seen in the left femur. 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 IMPRESSION: 1. There is a mild and acute appearing compression fracture of L1, new from 02/07/2017. Correlate for point tenderness at this level. 2. Cardiomegaly and trace pleural effusions. 3. Moderate sigmoid diverticulosis without CT evidence of acute diverticulitis. 4. Additional findings as above. [~ rep ct add3]] HEAD WITHOUT CONTRAST (CT) CLINICAL HISTORY: 81 years-old Female with Stroke. Acute strokelike symptoms with left-sided weakness. TECHNIQUE: Multiple axial CT images of the head were obtained without contrast. A dose lowering technique was utilized adhering to the principles of ALARA. CT DOSE: 812.81 mGy.cm COMPARISON: Head CT 02/07/2017. FINDINGS: No acute intracranial hemorrhage, midline shift, intracranial mass, hydrocephalus, territorial ischemia or abnormal extra-axial collection. Moderate atrophy with ex vacuo ventriculomegaly. Ill-defined areas of low attenuation are again seen within the subcortical, deep and periventricular white matter suggesting chronic microvascular ischemic changes. Senescent calcifications of the lentiform nuclei are noted bilaterally. Unchanged encephalomalacia of the left cerebellar hemisphere suggests remote infarction. Remote silvano hole of the right parietal calvarium. Vascular calcifications are seen at the level of the skull base. The calvarium is intact. The paranasal sinuses, mastoid air cells, and middle ear cavities are clear. IMPRESSION: No acute intracranial abnormality. The above report was generated using voice recognition software. It may contain grammatical, syntax or spelling errors. Electronically signed by: Andry Alcantar M.D. 03/20/2017 1:45 PM Dictated Date/Time: 03/20/2017 1:41 PM CXR normal EKG Afib with RVR Impression Assessment and Plan 81 female with PMH of TIA, s/p CABGx2 (2010),subdural hematoma with residual seizures, presents to [facility] after experiencing stroke-like symptoms this morning. Episode of Left sided facial weakness and slurred speech - r/o CVA -Admitted to telemetry -CT of the head showed no acute intracranial abnormality -MRI of the brain -Neuro consulted, appreciate recs -Carotid Doppler ordered -Lipid profile ordered -Pt received ECHO on 02/08 EF 40-45%, global hypokinesis, LA dilation -CXR negative AFIB RVR Elevated Troponin -Cardizem 12 mg given in the ED, patient converted to NSR -Cards consulted, appreciate recs -Will follow up on possible anticoagulation, additional rate control Urinary Retention -Patient describes straining, decreased stream -Cath and UA -Bladder scan and PRN straight cath CKD stage 4 -Est. GFR 26 -Cr 1.75 -Encourage PO intake, follow BMP L1 Fracture/Left hip post op and degenerative changes -Incidental finding on Ab CT -Continue Vit D/Ca2+ -Vit D level -Ortho consult in the outpatient HTN -Continue Valsartan and Carvedilol HLD -Continue Lovastatin COPD -Continue Combivent, Atrovent Constipation -Seen on CT, despite patient h/o regular BM -Miralax-3 consecutive doses today Incidental small bowel lipoma -Reassurance, outpatient follow up DNR/SCD's No chemical ppx. Pt has a PMH of subdural hematoma, awaiting cards recs Reviewed: Pt Seen/Exam by Me History 81 y/o F with h/o cerebellar stroke and subdural hematoma here with episode left side facial weakness and slurred speech lasting about 10min while she was in the car with her son Constitutional: denies: fever Respiratory: negative: short of breath Cardiovascular: denies chest pain General Appearance: no apparent distress Respiratory: lungs clear, no respiratory distress Cardiovascular: irregularly irregular Neurologic/Psychiatric: no motor/sensory deficits, alert, normal mood/affect, oriented x 3 Skin Characteristics: warm/dry Assessment/Plan Resident Physician Supervision Note: I independently interviewed and examined the patient and verified the godinez history and physical, reviewed labs and image studies, discussed the case with the resident Dr. Richardson and agree with the findings and care plan.
[2017-03-20] MEDS ORDERED: MAGNESIUM HYDROXIDE SUSP 30 ML UDC PO PRN (15:30)
[2017-03-20] MEDS ORDERED: ACETAMINOPHEN 325 MG TAB PO PRN (15:30)
[2017-03-20] MEDS ORDERED: PHARMACIST DISCHARGE MED REC CONSULT PRN (15:30)
[2017-03-20] MEDS ORDERED: ALUMINUM/MAGNESIUM/SIMETH (MAALOX MAX) 30 ML UDC PO PRN (15:30)
[2017-03-20] MEDS ORDERED: ONDANSETRON INJ 2 MG/ML 2 ML VIAL IV PRN (15:30)
[2017-03-20 15:34] LABS: INFLUENZA A PCR Neg for Influ A (NEG); INFLUENZA B PCR Neg for Influ B (NEG)
[2017-03-20] MEDS: IPRATROPIUM BROMIDE NEB SOLN 0.02% 2.5 ML VIAL INH SCH ×3 (16:00→23:16)
[2017-03-20] MEDS ORDERED: IPRATROPIUM BROMIDE/ALBUTEROL respimat INH INH PRN (16:00)
[2017-03-20] MEDS: CALCIUM 600MG + VIT D 400 IU TAB PO SCH (20:50)
[2017-03-20] MEDS: POLYETHYLENE (MIRALAX) 17 GM PACK PO SCH ×3 (20:50→22:37)
[2017-03-20] MEDS: DOCUSATE SODIUM 100 MG CAP PO SCH (20:50)
[2017-03-20] MEDS: CARVEDILOL 6.25 MG TAB PO SCH (20:50)
[2017-03-20] MEDS: GABAPENTIN 400 MG CAP PO SCH (20:50)
[2017-03-20] MEDS ORDERED: NORTRIPTYLINE HCL 10 MG CAP PO SCH (21:00)
--- NOTE | 2017-03-20 22:17 | DIAGNOSTIC IMAGING REPORT ---
ULTRASOUND OF THE CAROTID ARTERIES CLINICAL HISTORY: Stroke COMPARISON STUDY: 11/20/2014 TECHNIQUE: Real-time, grayscale, and color Doppler sonography of the carotid arteries was performed. Imaging reviewed in the transverse and longitudinal planes. NASCET criteria was utilized for stenosis calcification. FINDINGS: There is moderate atherosclerotic plaque present bilateral. The peak systolic velocity within the right internal carotid artery is 73 cm/sec. The systolic velocity ratio of right internal to common carotid artery is 1.5. The peak systolic velocity within the left internal carotid artery is 56 cm/sec. The systolic velocity ratio left internal to common carotid artery is 1. There is elevation of the peak systolic velocity of the right external carotid artery consistent with an external carotid artery stenosis. Antegrade flow is seen in the vertebral arteries. The external carotid arteries are patent. Blood pressure in the right arm measured 158 mm/Hg. Blood pressure in the left arm measured 148 mm/Hg. IMPRESSION: 1. No evidence of hemodynamically significant internal carotid artery stenosis 2. 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 Electronically signed by: Lawson Troncoso M.D. 03/20/2017 10:15 PM Dictated Date/Time: 03/20/2017 10:13 PM
[2017-03-21 03:35] VITALS: BP 110/57; PULSE 73; TEMP 36.6; O2SAT 91
[2017-03-21] MEDS: IPRATROPIUM BROMIDE NEB SOLN 0.02% 2.5 ML VIAL INH SCH ×2 (03:45→07:35)
[2017-03-21 05:45] LABS: HEMOGLOBIN A1C 6.8 % (4.5-5.6)
[2017-03-21 06:30] LABS: BASO % 0.4 %; BASO ABS # 0.03 K/uL (0-0.2); EOS ABS # 0.22 K/uL (0-0.5); HEMOGLOBIN 12.1 g/dL (12.0-16.0); IG# 0.02 K/uL (0.00-0.02); LYMPH % 45.3 %; LYMPH ABS # 3.31 K/uL (1.2-3.4); MEAN CELL VOLUME 84.1 fL (80-100); MEAN CORPUSCULAR HEMOGLOBIN 27.5 pg (25-34); MEAN CORPUSCULAR HGB CONC 32.7 g/dl (32-36); MEAN PLATELET VOLUME 10.4 fL (7.4-10.4); MONO ABS # 0.44 K/uL (0.11-0.59); NEUT ABS # 3.29 K/uL (1.4-6.5); PLATELET COUNT 171 K/uL (130-400); RED CELL DISTRIBUTION WIDTH CV 16.5 % (11.5-14.5); RED CELL DISTRIBUTION WIDTH SD 50.5 fL (36.4-46.3); WHITE BLOOD COUNT 7.31 K/uL (4.8-10.8)
[2017-03-21 07:05] LABS: CREATININE 1.11 mg/dl (0.60-1.20); POTASSIUM 3.4 mmol/L (3.5-5.1)
[2017-03-21 07:29] VITALS: BP 161/73; PULSE 74; TEMP 36.7; O2SAT 92
[2017-03-21 07:36] VITALS: PULSE 80; O2SAT 92
[2017-03-21] MEDS: CALCIUM 600MG + VIT D 400 IU TAB PO SCH (08:28)
[2017-03-21] MEDS: GABAPENTIN 400 MG CAP PO SCH (08:29)
[2017-03-21] MEDS: LOVASTATIN 20 MG TAB PO SCH ×2 (08:29→09:39)
[2017-03-21] MEDS: DOCUSATE SODIUM 100 MG CAP PO SCH (08:29)
[2017-03-21] MEDS ORDERED: HEPARIN IV LOW DOSE NO BOLUS SCH (08:37)
--- NOTE | 2017-03-21 08:44 | Family Medicine Progress Note ---
Progress Note Date of Service Mar 21, 2017. Subjective Pt evaluation today including: conversation w/ patient, physical exam, chart review, lab review Patient is doing well this am.
[2017-03-21] MEDS ORDERED: ASPIRIN 81 MG ECTAB PO SCH (09:00)
[2017-03-21] MEDS ORDERED: ISOSORBIDE MONONITRATE 30 MG TABCR PO SCH (09:00)
[2017-03-21] MEDS ORDERED: VALSARTAN 80 MG TAB PO SCH (09:00)
[2017-03-21] MEDS ORDERED: PANTOprazole SOD 40 MG TAB PO SCH (09:00)
[2017-03-21] MEDS ORDERED: HEPARIN 25,000 UNIT/500ML D5W 500 ML IV PRN (09:00)
--- NOTE | 2017-03-21 09:25 | Clinical Documentation Query ---
DANN De LeonHAVI : CLINICAL DOCUMENTATION QUERIES QUERY 1 OF 2 Patient is an 81 year old male admitted for evaluation of stroke like symptoms. Past medical history includes that of presenting in atrial fibrillation. She was treated with IV Cardizem in the ED and converted back into a sinus rhythm. In your clinical opinion is this patient being managed for: ( ) Embolic TIA d/t cerebral embolism in the setting of non anticoagulated atrial fibrillation ( x ) Not Agree ( ) Other explanation of clinical findings (Please Explain) ( ) Unable to determine (Please Define) ( ) Need to Discuss The medical record reflects the following clinical findings, treatment, and risk factors. Clinical Indicators: Left lip droop, slurring of speech, left facial numbness. history of TIA Treatment: Telemetry, CT head, MRI brain, neurology consultation, carotid doppler, Lipid profile, IV Cardizem for afib as above. Risk Factors: Afib, combined systolic and diastolic CHF, age, CVA QUERY 2 OF 2 Historical documentation and estimated GFR range consistent with diagnosis of CKD stage 3. H&P documentation includes CKD stage 3 and CKD stage 4. Admission BUN and creatinine 24 mg/dl and 1.75 mg/dl. With IVF, repeat values this a.m. (03/21) are 17 mg/dl and 1.11 mg/dl. Historical GFR range dating back to 11/27 of approximately 30-45 ml/min. Please clarify as clinically appropriate. In your clinical opinion is this patient being managed for: ( ) Acute kidney failure on CKD 3 ( ) Not Agree ( ) Other explanation of clinical findings (Please Explain) ( ) Unable to determine (Please Define) ( ) Need to Discuss The medical record reflects the following clinical findings, treatment, and risk factors. Clinical Indicators: As above Treatment: IVF, serial chemistries Risk Factors: Age, medications, atrial fibrillation with RVR, chronic combined systolic and diastolic CHF. Please clarify and document your clinical opinion in the progress notes and discharge summary. Terms such as "probable", "suspected", "likely", "questionable", "possible", or "still to be ruled out" are acceptable. IF IN AGREEMENT, YOU MUST DOCUMENT ABOVE DIAGNOSTIC STATEMENT IN DAILY PROGRESS NOTES AND DISCHARGE SUMMARY. This document is not part of the patient's record. Thank You, Mckinley Spivey, ARABELLA [phone]
[2017-03-21] MEDS ORDERED: NURSING VERBAL MED ORDER ONE ×2 (09:45→11:30)
--- NOTE | 2017-03-21 09:57 | Neurology Consultation ---
Neurology Consultation Date of Consultation: Mar 21, 2017. Attending Physician: Korina Laird M.D. Primary Care Physician: Crystal Mcguire C.R.N.P Reason for Consultation: Patient is an 81-year-old, who was asked to see at the request of Dr. Richardson, for neurologic consultation regarding TIA versus stroke History of Present Illness Source: patient, caregiver, clinic records, hospital records Patient has had a longstanding history of hypertension and cardiac issues. She is post coronary artery bypass graft and mitral valve replacement. She has no history of headaches of significance. In September of 2010 she fell and was discovered to have an acute left cerebellar hemispheric stroke. She saw Dr. Harris at that time and was discharged on aspirin and Coumadin. Ever since the stroke, she has been a high fall risk and has fallen multiple times. In 2011 she fell fracturing her left hip requiring repair. In February of 2012, she fell and ended up having a right frontoparietal subdural hematoma. It was small and stable for a while but after a couple of weeks she started getting increased headaches, gait problems, and left ana paresthesias. She ended up having a bur hole procedure and drainage of this right frontoparietal subdural hematoma by Dr. Barrow. The she has done well with no headaches since. She did, however, have a few seizures associated with this. EEG in 2012 was unremarkable. She had another EEG in June of 2014 which was unremarkable. She is not on any anticonvulsants currently although she is on gabapentin for discomfort . In January of 2017 she fell but had no significant neurologic issues. She has been on aspirin. Over the last 2 weeks she has had some abdominal pain. On March 20, 2017 she got up and felt quite well and her normal self. She got into the car to go with her son to an appointment while still in the car, she apparently had the sudden onset of some slurring of her words and left facial droop. She does not have total sharp memory of this event but does remember some things. She had no seizure activity. It started around 1045 and after starting, the patient's son drove directly to the emergency room. She arrived at 1107 hours on March 20 At that time, blood pressure was 118/63, pulse 104 and in atrial fibrillation with rapid ventricular response. Respiratory rate was 18 uncomfortable, temperature 36.3, and O2 saturation 97 percent. She was given Cardizem and this resolved her AFib and she has been in sinus rhythm since admission. By the time she got to the emergency room, all symptoms had resolved and she was back to baseline. Neurologic examination was nonfocal and otherwise unremarkable. Therefore the symptoms lasted about [address] scan of the head showed the old left cerebellar stroke but no new abnormalities. The old right parietal silvano hole was seen. Chest x-ray was largely unremarkable. CT scan of the abdomen and pelvis showed L1 compression fracture which was fairly new, cardiomegaly, diverticulosis, and an incidental small bowel a lipoma. Chem profile and CBC were largely unremarkable. Lipid profile showed a cholesterol of 159 and a triglyceride of 160. Flu was negative and she had a negative tox screen. She had increased white cells in her urine and a culture is pending. Hemoglobin A1c was 6.8 vitamin-D was normal at 38. Carotid ultrasound showed no significant stenosis bilaterally in the internal carotid arteries. I reviewed all radiographic and laboratory reports. I reviewed the CT scan films. This morning, the patient feels back to normal and has no pain, headaches, abdominal pain, weakness, numbness, speech problems, or mentation problems. Nursing reports no problems overnight and she has been in normal sinus rhythm. Past Medical/Surgical History Medical Problems: (1) Atrial fibrillation with RVR Status: Acute (2) CHF (congestive heart failure) Status: Acute (3) CHF (congestive heart failure) Status: Acute (4) COPD exacerbation Status: Acute (5) Fall Status: Acute (6) Orthostatic hypotension Status: Acute (7) Pulmonary nodule Status: Acute (8) Rectal bleeding Status: Acute (9) TIA (transient ischemic attack) Status: Acute (10) Weakness Status: Acute History of atrial fibrillation with rapid ventricular response. Chronic systolic heart failure with ischemic cardiomyopathy diagnosed in the past Chronic kidney disease, stage III moderate History of right frontoparietal subdural hematoma with some seizure activity, resolved Hypertension Dyslipidemia COPD History of left cerebellar hemispheric stroke 2010 Post bilateral cataract repair 2001 Post cholecystectomy, hysterectomy and breast lumpectomy, benign Right total hip replacement for degenerative changes 2009 Left femoral neck fracture repair from fall December 2011 Coronary artery bypass graft x2 in 2010 with mitral valve replacement Family History The patient's mother in her 70s of uncertain causes. Patient's father age 43 of an [place] Social History Patient smoked half pack of cigarettes a day for many years quitting around the year 2000 Patient does not consume alcohol. 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 The patient lives alone. She uses a walker for support Smoking Status: Former smoker Smokeless Tobacco Use: No Alcohol Use: none Drug Use: none Marital Status: Housing Status: lives alone Occupation Status: retired Allergies Coded Allergies: Cephalosporins (Verified Allergy, Severe, TONGUE SWELLING WITH KEFLEX, 03/20) Penicillins (Verified Allergy, Severe, HIVES, SOB, 03/20/17) Tamsulosin (Verified Allergy, Severe, SHORTNESS OF BREATH, 03/20/17) Butalbital (Verified Allergy, Intermediate, SHORTNESS OF BREATH, 03/20/17) Levetiracetam (Verified Allergy, Intermediate, RASH, 03/20/17) Sulfa Antibiotics (Verified Allergy, Unknown, "SULFA DRUGS" - UNKNOWN, 03/20) Morphine (Verified Adverse Reaction, Unknown, hallucinations, 03/20/17) Current Inpatient Medications Current Inpatient Medications Medications (Trade) Dose Ordered Sig/Channing Route Start Time Stop Time Status Last Admin Dose Admin Ioversol (Optiray 320) 100 ml UD PRN IV 03/20/17 12:15 03/24/17 12:14 Miscellaneous Information (Pharmacist Discharge Med Rec Consult) 1 ea UD PRN N/A 03/20/17 15:30 04/19/17 15:29 Acetaminophen (Tylenol Tab) 650 mg Q4H PRN PO 03/20/17 15:30 04/19/17 15:29 Al Hydrox/Mg Hydrox/Simethicone (Maalox Max Susp) 15 ml Q4H PRN PO 03/20/17 15:30 04/19/17 15:29 Magnesium Hydroxide (Milk Of Magnesia Susp) 30 ml Q12H PRN PO 03/20/17 15:30 04/19/17 15:29 Ondansetron HCl (Zofran Inj) 4 mg Q6H PRN IV 03/20/17 15:30 04/19/17 15:29 Docusate Sodium (coLACE CAP) 100 mg BID PO 03/20/17 21:00 04/19/17 20:59 03/21/17 08:29 100 MG Aspirin (Ecotrin Tab) 81 mg DAILY PO 03/21/17 09:00 04/20/17 08:59 03/21/17 08:28 81 MG Calcium/Vitamin D (Caltrate Plus Tab) 2 tab BID PO 03/20/17 21:00 04/19/17 20:59 03/21/17 08:28 2 TAB Carvedilol (Coreg Tab) 6.25 mg BID PO 03/20/17 21:00 04/19/17 20:59 03/20/17 20:50 6.25 MG Gabapentin (Neurontin Cap) 400 mg BID PO 03/20/17 21:00 04/19/17 20:59 03/21/17 08:29 400 MG Ipratropium [place] (Atrovent 0.02% 0.5MG/2.5ML Neb) 1 mg Q4R INH 03/20/17 16:00 04/19/17 15:59 03/21/17 07:35 0.5 MG Albuterol/ Ipratropium (Combivent Respimat Inh) 1 puffs Q4 PRN INH 03/20/17 16:00 04/19/17 15:59 Isosorbide Mononitrate (Imdur Ext Rel Tab) 30 mg DAILY PO 03/21/17 09:00 04/20/17 08:59 03/21/17 08:28 30 MG Lovastatin (Mevacor Tab) 40 mg DAILY PO 03/21/17 09:00 04/20/17 08:59 03/21/17 08:29 40 MG Nortriptyline HCl (Pamelor Cap) 20 mg HS PO 03/20/17 21:00 04/19/17 20:59 03/20/17 20:50 20 MG Pantoprazole Sodium (Protonix Tab) 40 mg DAILY PO 03/21/17 09:00 04/20/17 08:59 03/21/17 08:29 40 MG Valsartan (Diovan Tab) 40 mg QAM PO 03/21/17 09:00 04/20/17 08:59 03/21/17 08:29 40 MG Heparin Sodium/ Dextrose 500 ml @ 12 mls/hr Q24H PRN IV 03/21/17 09:00 04/20/17 08:59 Review of Systems Constitutional: No weakness, No fatigue Eyes: No worsening of vision, No diplopia ENT: + hearing loss, No tinnitus, No trouble swallowing Respiratory: No cough, No shortness of breath Cardiovascular: No chest pain, No palpitations Abdomen: No pain, No nausea Musculoskeletal: No joint pain, No muscle pain Genitourinary - Female: No dysuria, No urinary incontinence Neurologic: + balance problems, No memory loss, No weakness, No numbness/ tingling, No vertigo Psychiatric: No depression symptoms, No anxiety Endocrine: No fatigue Hematologic / Lymphatic: No abnormal bleeding/bruising Integumentary: No rash Allergic / Immunologic: No hives Physical Exam Vital Signs (Past 24 Hrs): Date Time Temp Pulse Resp B/P (MAP) Pulse Ox O2 Delivery O2 Flow Rate FiO2 03/21/17 07:36 80 16 92 Room Air 03/21/17 07:29 36.7 74 18 161/73 (102) 92 Room Air 03/21/17 04:00 Room Air 03/21/17 03:35 36.6 73 18 110/57 (74) 91 Room Air 03/21/17 00:01 Room Air 03/20/17 23:35 36.4 71 18 161/79 (106) 98 Room Air 03/20/17 23:16 73 16 96 Room Air 03/20/17 21:05 79 16 95 Room Air 03/20/17 20:25 78 18 178/78 (111) 03/20/17 20:00 79 17 148/70 (96) 97 Room Air 03/20/17 19:45 78 17 166/74 (104) 94 Room Air 03/20/17 19:22 78 16 145/101 95 03/20/17 19:20 36.6 80 18 175/74 (107) 96 Room Air 03/20/17 19:20 36.6 80 18 175/74 (107) 96 Room Air 03/20/17 19:20 36.6 80 17 175/74 96 Room Air 03/20/17 18:26 78 16 164/80 98 Room Air 03/20/17 16:41 69 16 156/86 94 Room Air 03/20/17 15:11 72 16 155/79 95 Room Air 03/20/17 13:45 82 16 118/87 94 Room Air 03/20/17 12:06 130 03/20/17 11:39 98 Room Air 03/20/17 11:33 139 16 115/75 98 Room Air 03/20/17 11:07 36.3 104 18 118/63 97 Room Air Patient is right-handed. The patient is awake and alert. Speech is normal without aphasia or dysarthria. Mentation and thought processes are intact with orientation and normal fund of knowledge. Mood and affect are normal and appropriate. Appearance and grooming are normal. Long and short-term memory are intact. The discs are sharp with positive venous pulsations. There are no exudates, hemorrhages, or blood vessel changes seen. Pupils are 3mm bilaterally and reactive to light. Extraocular eye muscles are intact without nystagmus. Visual acuity and visual hurley seem normal grossly to confrontation. There are no deficits to sensation of the face bilaterally. Corneal reflexes are positive bilaterally. Facial strength and symmetry is normal bilaterally. Hearing is decreased bilaterally and she has hearing aides. Palate moves well without asymmetry. There is normal sternocleidomastoid and trapezius strength bilaterally. Tongue is midline with good strength bilaterally. Neck is with full range of motion without discomfort. There are no cervical bruits. There are no cranial or ocular bruits. Heart is without murmur. Cervical, thoracic, and lumbar spine are nontender to palpation. Gait is somewhat off balanced although narrow base she tends to lean towards the left. Turns are somewhat unstable. Stance is reasonable eyes open with feet together. With outstretched arms there is no drift. There are no resting, postural, or action tremors. There is mild ataxia with [id number] testing and heel-to- ordonez testing on the left. On the right, there is no ataxia. There is decreased facility in the left hand, and fairly normal on the right. There are no abnormal involuntary movements noted. Motor strength is 5/5 diffusely in the arms bilaterally including deltoids, biceps, brachioradialis, wrist flexors and extensors, telegraph inspector, and intrinsic hand muscles. Motor strength is 5/5 diffusely in the legs bilaterally including hip flexors, quadriceps, hamstring, gastrocnemius, tibialis anterior, tibialis posterior, and peroneii muscles bilaterally. Toe extensors are normal and there is good bulk in the extensor digitorum brevis muscle bilaterally. The limbs have good tone without rigidity or spasticity, and there is no atrophy noted. Muscle bulk is normal, there is no tenderness, no myotonia noted to percussion, and no fasciculations seen. Sensory examination is intact to pin and touch throughout all four limbs. Reflexes are 1/4 in the biceps, triceps, brachioradialis, quadriceps, and Achilles tendons bilaterally. Toes are downgoing with plantar stimulation bilaterally. Peripheral pulses are present and of normal quality distally in all four limbs. There is no peripheral edema noted. Laboratory Results Past 24 Hours: 03/21/17 06:05 Red Blood Count 4.40, Mean Corpuscular Volume 84.1, Mean Corpuscular Hemoglobin 27.5, Mean Corpuscular Hemoglobin Concent 32.7, Mean Platelet Volume 10.4, Neutrophils (%) (Auto) 45.0, Lymphocytes (%) (Auto) 45.3, Monocytes (%) (Auto) 6.0, Eosinophils (%) (Auto) 3.0, Basophils (%) (Auto) 0.4, Neutrophils # (Auto) 3.29, Lymphocytes # (Auto) 3.31, Monocytes # (Auto) 0.44, Eosinophils # (Auto) 0.22, Basophils # (Auto) 0.03 03/21/17 06:05 Test 03/20/17 11:25 03/20/17 14:02 03/20/17 18:33 03/21/17 06:05 Prothrombin Time 10.7 SECONDS (9.0-12.0) Prothromb Time International Ratio 1.0 (0.9-1.1) Activated Partial Thromboplast Time 25.9 SECONDS (21.0-31.0) Partial Thromboplastin Ratio 1.0 Estimated Average Glucose 148 mg/dl Hemoglobin A1c 6.8 % (4.5-5.6) Magnesium Level 1.9 mg/dl (1.8-2.4) Total Creatine Kinase 86 U/L (26-192) Creatine Kinase MB 3.4 ng/ml (0.5-3.6) Creatine Kinase MB Ratio 4.0 (0-3.0) Influenza Type A (RT-PCR) Neg for Influ A (NEG) Influenza Type B (RT-PCR) Neg for Influ B (NEG) Urine Color YELLOW Urine Appearance CLEAR (CLEAR) Urine pH 6.5 (4.5-7.5) Urine Specific [place] > 1.045 (1.000-1.030) Urine Protein 1+ (NEG) Urine Glucose (UA) NEG (NEG) Urine Ketones NEG (NEG) Urine Occult Blood NEG (NEG) Urine Nitrite NEG (NEG) Urine Bilirubin NEG (NEG) Urine Urobilinogen NEG (NEG) Urine Leukocyte Esterase TRACE (NEG) Urine WBC (Auto) 10-30 /hpf (0-5) Urine RBC (Auto) 0-4 /hpf (0-4) Urine Hyaline Casts (Auto) 1-5 /lpf (0-5) Urine Epithelial Cells (Auto) >30 /lpf (0-5) Urine Bacteria (Auto) 1+ (NEG) Urine Pathogenic Casts /lpf (0) Urine Opiates Screen NEG (NEG) Urine Methadone, Qualitative NEG (NEG) Urine Barbiturates NEG (NEG) Urine Phencyclidine (PCP) Level NEG (NEG) Ur Amphetamine/Methamphetamine NEG (NEG) MDMA (Ecstasy) Screen NEG (NEG) Urine Benzodiazepines Screen NEG (NEG) Urine Cocaine Metabolite NEG (NEG) Urine Marijuana (THC) NEG (NEG) White Blood Count 7.31 K/uL (4.8-10.8) Red Blood Count 4.40 M/uL (4.2-5.4) Hemoglobin 12.1 g/dL (12.0-16.0) Hematocrit 37.0 % (37-47) Mean Corpuscular Volume 84.1 fL (80-100) Mean Corpuscular Hemoglobin 27.5 pg (25-34) Mean Corpuscular Hemoglobin Concent 32.7 g/dl (32-36) Platelet Count 171 K/uL (130-400) Mean Platelet Volume 10.4 fL (7.4-10.4) Neutrophils (%) (Auto) 45.0 % Lymphocytes (%) (Auto) 45.3 % Monocytes (%) (Auto) 6.0 % Eosinophils (%) (Auto) 3.0 % Basophils (%) (Auto) 0.4 % Neutrophils # (Auto) 3.29 K/uL (1.4-6.5) Lymphocytes # (Auto) 3.31 K/uL (1.2-3.4) Monocytes # (Auto) 0.44 K/uL (0.11-0.59) Eosinophils # (Auto) 0.22 K/uL (0-0.5) Basophils # (Auto) 0.03 K/uL (0-0.2) RDW Standard Deviation 50.5 fL (36.4-46.3) RDW Coefficient of Variation 16.5 % (11.5-14.5) Immature Granulocyte % (Auto) 0.3 % Immature Granulocyte # (Auto) 0.02 K/uL (0.00-0.02) Anion Gap 8.0 mmol/L (3-11) Est Creatinine Clear Calc Drug Dose 29.9 ml/min Estimated GFR () 53.2 Estimated GFR (Non- 45.9 BUN/Creatinine Ratio 15.7 (10-20) Calcium Level 9.0 mg/dl (8.5-10.1) Troponin I 0.088 ng/ml (0-0.045) Triglycerides Level 160 mg/dl (0-150) Cholesterol Level 159 mg/dl (0-200) HDL Cholesterol 36 mg/dl LDL Cholesterol, Calculated 91 mg/dl VLDL Cholesterol, Calculated 32 mg/dl Cholesterol/HDL Ratio 4.4 25-Hydroxy Vitamin D Total 38.2 ng/ml (30-100) Imaging HEAD WITHOUT CONTRAST (CT) CLINICAL HISTORY: 81 years-old Female with Stroke. Acute strokelike symptoms with left-sided weakness. TECHNIQUE: Multiple axial CT images of the head were obtained without contrast. A dose lowering technique was utilized adhering to the principles of ALARA. CT DOSE: 812.81 mGy.cm COMPARISON: Head CT 02/07/2017. FINDINGS: No acute intracranial hemorrhage, midline shift, intracranial mass, hydrocephalus, territorial ischemia or abnormal extra-axial collection. Moderate atrophy with ex vacuo ventriculomegaly. Ill-defined areas of low attenuation are again seen within the subcortical, deep and periventricular white matter suggesting chronic microvascular ischemic changes. Senescent calcifications of the lentiform nuclei are noted bilaterally. Unchanged encephalomalacia of the left cerebellar hemisphere suggests remote infarction. Remote silvano hole of the right parietal calvarium. Vascular calcifications are seen at the level of the skull base. The calvarium is intact. The paranasal sinuses, mastoid air cells, and middle ear cavities are clear. IMPRESSION: No acute intracranial abnormality. The above report was generated using voice recognition software. It may contain grammatical, syntax or spelling errors. Electronically signed by: Andry Alcantar M.D. 03/20/2017 1:45 PM Impression 1. Episode February 5th of slurred speech and left facial droop of a short duration (15 minutes or so at most) consistent with a brief TIA. There is no evidence on neurologic examination today for a acute stroke. She has no encephalopathy or meningeal signs either. Nevertheless, I cannot exclude a small stroke. MRI is pending this afternoon ([employer] will be present because of her pacemaker) She has risk factors for stroke including hypertension and dyslipidemia. These are controlled currently. 2. History of left cerebellar hemispheric stroke 2010. She still has left arm and leg ataxia with this with gait disturbance. I believe this is the main reason for her falling. This is a chronic problem and she needs to walk only with a walker to reduce her fall risk. 3. Multiple cardiac issues with history of atrial fibrillation, now in normal sinus rhythm. Plan 1. MRI of the brain, pending for this afternoon. 2. Physical and occupational therapy 3. Remain on aspirin for now. The patient has a history of GI bleed and subdural hematoma in the past. 4. Use walker at all times when trying to ambulate. I spoke to Dr. Laird regarding this case including differential diagnosis and treatment options. All told, I spent a total of 75 minutes with this case including records review, discussion with clinicians and nursing, discussion with the patient and evaluation at the bedside.
[2017-03-21 11:49] VITALS: BP 146/69; PULSE 73; TEMP 36.7; O2SAT 94
[2017-03-21 11:52] LABS: PTT PATIENT 24.8 SECONDS (21.0-31.0)
[2017-03-21] MEDS ORDERED: IPRATROPIUM BROMIDE NEB SOLN 0.02% 2.5 ML VIAL INH SCH (12:00)
[2017-03-21] MEDS: CARVEDILOL 6.25 MG TAB PO SCH (12:40)
[2017-03-21] MEDS ORDERED: IPRATROPIUM BROMIDE NEB SOLN 0.02% 2.5 ML VIAL INH PRN (13:00)
[2017-03-21] MEDS ORDERED: APIX1TAB PO (15:01)
[2017-03-21] MEDS ORDERED: CARV12.52 PO (15:01)
--- NOTE | 2017-03-21 15:02 | ECHOCARDIOGRAM REPORT ---
*NOTICE TO RECEIVING [employer] This information is strictly Confidential and protected under [place] law. [place] law prohibits you from making any further disclosure of this information unless further disclosure is expressly permitted by the written consent of the person to whom it pertains or is authorized by law. A general authorization for the release of medical or other information is not sufficient for this purpose. Hospital accepts no responsibility if the information is made available to any other person, INCLUDING THE PATIENT. Interpretation Summary * Name: TIM GATES Study Date: 03/21/2017 09:46 AM BP: 161/73 mmHg * Patient Location: C.2T\S\S239\S\2 HR: 74 * : 1935 (M/d/yyyy) Gender: Female Height: 60 in * Age: 81 yrs Ethnicity: CA Weight: 121 lb * Ordering Physician: Stephen Breaux * Referring Physician: Self, Referred * Performed By: Almaz Kasper RCS * * Reason For Study: EVAL LV FUNCTION * BSA: 1.5 m2 * -- Conclusions -- * Left ventricular systolic function is borderline reduced. * No regional wall motion abnormalities noted. * Ejection Fraction = 45-50%. * There is moderate concentric left ventricular hypertrophy. * There is mild tricuspid regurgitation. Procedure Details * Limited views were obtained. Left Ventricle * The left ventricle is normal in size. * There is moderate concentric left ventricular hypertrophy. * Left ventricular systolic function is borderline reduced. * Ejection Fraction = 45-50%. * No regional wall motion abnormalities noted. Right Ventricle * The right ventricle is grossly normal size. * The right ventricular systolic function is normal. Atria * The left atrium is mildly dilated. * Right atrial size is normal. * There is no evidence of atrial septal defect, but resolution does not allow assessment for a patent foramen ovale. Mitral Valve * The mitral valve is not well visualized. * Mild mitral stenosis suggested by 2D imaging. * An annuloplasty ring is noted in the mitral position. Tricuspid Valve * The tricuspid valve is not well visualized, but is grossly normal. * There is no tricuspid stenosis. * There is mild tricuspid regurgitation. Aortic Valve * The aortic valve is trileaflet. * Aortic valve sclerosis moderate, without significant aortic valvular stenosis. * There is no significant aortic regurgitation. Pulmonic Valve * The pulmonary valve is not well seen, but the Doppler examination is normal without significant regurgitation or stenosis. Great Vessels * The aortic root is normal size. * The pulmonary is not well visualized. Pericardium/Pleural * There is no pericardial effusion. MMode 2D Measurements and Calculations IVSd 1.8 cm IVSs 1.7 cm LVIDd 3.5 cm LVIDs 2.7 cm LVPWd 0.85 cm LVPWs 1.4 cm IVS/LVPW 2.2 FS 22.5 % EDV(Teich) 51.3 ml ESV(Teich) 27.6 ml EF(Teich) 46.2 % EDV(cubed) 43.3 ml ESV(cubed) 20.2 ml EF(cubed) 53.4 % % IVS thick -5.19 % % LVPW thick 66.8 % LV mass(C)d 163.7 grams LV mass(C)dI 108.6 grams/m\S\2 LV mass(C)s 154.2 grams LV mass(C)sI 102.3 grams/m\S\2 SV(Teich) 23.7 ml SI(Teich) 15.7 ml/m\S\2 SV(cubed) 23.1 ml SI(cubed) 15.3 ml/m\S\2 LVOT diam 2.2 cm LVOT area 3.7 cm\S\2 Doppler Measurements and Calculations Ao V2 max 186.3 cm/sec Ao max PG 13.9 mmHg Ao max PG (full) 12.6 mmHg CONCHIS(V,A) 1.1 cm\S\2 CONCHIS(V,D) 1.1 cm\S\2 LV V1 max PG 1.2 mmHg LV V1 max 55.5 cm/sec MR max mirela 518.3 cm/sec MR max PG 107.5 mmHg PA V2 max 81.1 cm/sec PA max PG 2.6 mmHg TR max mirela 284.8 cm/sec
[2017-03-21 15:41] VITALS: BP 163/80; PULSE 79; TEMP 36.8; O2SAT 93
--- NOTE | 2017-03-21 15:41 | DIAGNOSTIC IMAGING REPORT ---
BRAIN W/O FOR SEIZURE CLINICAL HISTORY: 81 years-old Female presenting with Stroke. TECHNIQUE: Multisequence, multiplanar MR imaging of the brain was performed without the use of intravenous contrast. IV contrast: None. COMPARISON: MR brain from [address] head from 03/20/2017. FINDINGS: Proportional ventricular and sulcal prominence, likely age-related parenchymal volume loss. Periventricular and subcortical white matter T2/FLAIR hyperintensity, nonspecific but likely indicative of chronic small vessel ischemic change. Cystic encephalomalacia and gliosis in the left cerebral hemisphere consistent with old infarct. No mass effect or midline shift. No restricted diffusion to suggest acute ischemia. No hemorrhage. No extra-axial fluid collection. T2 skull base flow voids preserved. Bilateral [place] lenses are absent. Bone marrow signal intensity within the calvarium within normal limits. IMPRESSION: 1. Significant chronic small vessel ischemic change and parenchymal atrophy. 2. Old infarct in the left cerebellar hemisphere. 3. No acute intracranial abnormality. Electronically signed by: Omer Kate M.D. 03/21/2017 3:40 PM Dictated Date/Time: 03/21/2017 3:34 PM
--- NOTE | 2017-03-21 15:53 | Discharge Instructions ---
Discharge Instructions Date of Service Mar 21, 2017. Admission Reason for Admission: Atrail Fivrillation With Rvr; Elevated Troponin Discharge Discharge Diagnosis / Problem: TIA Discharge Goals Goal(s): Improve function, Increase independence, Improve disease control Activity Recommendations Activity Limitations: per Instructions/Follow-up section . Instructions / Follow-Up Instructions / Follow-Up Ms. Vasquez, You came in yesterday with a lip droop and slurred speech. You were seen by the hospital team, Neurology and Cardiology. We are all in agreement that you may have experienced a TIA, which stands for transient ischemic attack. A TIA is considered a "mini-stroke" lasting only a few minutes and without permanent damage. Considering your medical history, you are at a high risk for stroke. On this hospitalization, you were found to have a heart rhythm called atrial fibrillation. This rhythm can cause blood clots to form and possibly travel to your brain causing strokes. With that said, we have decided to give you a medicine that thins the blood and prevents clots from forming, thus decreasing your risk for a stroke. In addition, we have increased your dose of Coreg to prevent the rhythm from beginning in the first place. The medicine does put you at an increase risk for bleeding. We have discussed with the jacquard loom weaver and the neurologist and have determined that your risk for stroke outweighs your risk of bleeding from the medication. Be advised; 1. Pick of prescriptions for Eliquis 2.5mg BID 2. beet end supervisor prescription for Coreg 12.5 BID 3. Follow up with primary doctor this week. 4. Hospital will contact you regarding appointments with Dr. Breaux in the outpatient. In addition, we have put an outpatient referral in for orthopedics. Risk Factors for Stroke: You can reduce your chances of stroke by working with your medical provider to adopt a healthy lifestyle. Some specific ways to lower your chance of stroke are: * If you are a smoker, now is the time to stop smoking cigarettes * If you are diabetic, improve the control of your blood sugars * Avoid excessive amounts of alcohol * Control high blood pressure * Lose weight if you are overweight * Be sure to lead an active lifestyle * Eat a healthy diet low in salt, cholesterol and fat You should know about other risk factors for stroke that you are unable to control. These include: * Age 55 years or older * Male gender * Certain racial groups: , or / * Family History of Stroke, Mini stroke or Heart Attack * Sickle Cell Disease Follow Up: It is important for you to keep your follow up appointments with your medical provider. Current Hospital Diet Patient's current hospital diet: Regular Diet Discharge Diet Recommended Diet: Regular Diet Pending Studies Studies pending at discharge: no Laboratory Results Hemoglobin A1c Test 03/20/17 11:25 Range/Units Estimated Average Glucose 148 mg/dl Hemoglobin A1c 6.8 H 4.5-5.6 % Lipid Panel Test 03/21/17 06:05 Range/Units Triglycerides Level 160 H 0-150 mg/dl Cholesterol Level 159 0-200 mg/dl HDL Cholesterol 36 mg/dl Cholesterol/HDL Ratio 4.4 LDL Cholesterol, Calculated 91 mg/dl Medical Emergencies . Who to Call and When: Medical Emergencies: Call 911 immediately if you experience any of the following warning signs and symptoms of Stroke: * Sudden numbness or weakness of the face, arm or leg, especially on one side of the body * Sudden confusion, trouble speaking or understanding * Sudden trouble seeing in one or both eyes * Sudden trouble walking, dizziness, loss of balance or coordination * Sudden severe headache with no cause Do not delay calling 911 if you experience any warning signs or symptoms of a stroke. Delay in seeking medical attention may affect what treatments can be given to you. . Non-Emergent Contact Non-Emergency issues call your: Primary Care Provider . . "Provider Documentation" section prepared by Robel Richardson. . Stroke Core Measures Reason no t-PA for Stroke: Treatment not indicated Reason no antithrom by day 2: Treatment not indicated Reason no antithrom at D/C: Treatment not indicated Reason no statin at D/C: Treatment provided - N/A Reason no anticoag w/a fib: Treatment provided - N/A VTE Core Measure Inpt VTE Proph given/why not?: Other Anticoagulation
[2017-03-21] MEDS ORDERED: APIXABAN 2.5 MG TAB PO ONE (16:15)
--- NOTE | 2017-03-21 16:18 | CARDIOLOGY CONSULTATION ---
DATE OF CONSULTATION: 03/21/2017 PERTINENT HISTORY: Mrs. Vasquez is an 81-year-old white female, well known to me from the outpatient setting. She was admitted yesterday with TIA type symptoms and was found to be in atrial fibrillation with a rapid ventricular response. This consultation was ordered to assist in her management. The patient was in her usual state of health until yesterday just prior to presentation. She was with her son, who recognized a left facial droop and slurred speech. She was brought immediately to the Emergency Room, but her symptoms resolved in approximately 15 minutes. She was noted to be in atrial fibrillation with a rapid ventricular response and eventually spontaneously converted back to sinus rhythm. The patient did not experience palpitations during her episode of atrial fibrillation. She has never known of this diagnosis previously. The patient is active on a daily basis caring for her home and property. She does not experience exertional anginal pectoris or limiting dyspnea. She further denies syncope, presyncope, PND, orthopnea, lower extremity edema, and claudication. Currently, the patient is resting comfortably in bed without complaints. PAST MEDICAL HISTORY: 1. Coronary artery disease. 2. Status post CABG x2 - March 2010. 3. Ischemic cardiomyopathy - 40% to 45%. 4. Mitral valve repair/annuloplasty ring - March 2010. 5. DDD pacemaker - complete heart block - October 2011. 6. Hypertension. 7. Mild LVH. 8. Diastolic dysfunction. 9. [id number] mitral regurgitation - January 2017. 10. Hypercholesterolemia. 11. 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 12. COPD. 13. GERD. 14. Diabetes mellitus. 15. Chronic renal failure. 16. Peripheral vascular disease. 17. Secondary hyperthyroidism. 18. Right frontoparietal subdural hematoma - status post evacuation - February 2012. 19. Secondary seizure disorder. 20. Vitamin D deficiency. 21. Left THR - 2011. 22. Bilateral intraocular lens implants - 2001. 23. Cholecystectomy. 24. Hysterectomy. MEDICATIONS: 1. Valsartan 40 mg daily. 2. Carvedilol 6.25 mg b.i.d. 3. Mevacor 40 mg at bedtime. 4. Aspirin 81 mg per day. 5. Imdur 30 mg daily. 6. Protonix 40 mg per day. 7. Colace 100 mg b.i.d. 8. Caltrate 2 tabs b.i.d. 9. Neurontin 400 mg b.i.d. 10. Pamelor 20 mg at bedtime. 11. Atrovent nebulizer q. 4 hours. 12. Combivent 1 puff q. 4 hours p.r.n. ALLERGIES: 1. CEPHALOSPORINS. 2. MORPHINE. 3. PENICILLIN. 4. SULFA. 5. TAMSULOSIN. SOCIAL HISTORY: The patient is a and now lives alone. Stopped tobacco use in 2000. Does not use alcohol. FAMILY HISTORY: Father at age 43 from an [place]. Mother in her 70s of unknown causes. REVIEW OF SYSTEMS: A 10-point review of systems was negative except for that described above. PHYSICAL EXAMINATION: GENERAL: This is a well-developed and well-nourished white female in no acute distress. VITAL SIGNS: Blood pressure is 146/70 with a regular pulse of 73. Respiratory rate is 18. The patient is afebrile at 36.7 degrees Celsius. Saturation is 94% on room air. HEENT: Negative. NECK: Supple with full carotid upstrokes. No carotid bruits. Jugular venous pressure is flat at 90 degrees. There is no thyromegaly. CARDIOVASCULAR: Reveals a regular rhythm with a normal S1 and S2. Heart sounds are distant. No obvious murmurs. LUNGS: Clear without rales, rhonchi, or wheezes. ABDOMEN: Soft, nontender without bruits. EXTREMITIES: Reveal intact radial artery pulses bilaterally. There is no peripheral edema. LABORATORY DATA: CBC notes hemoglobin of 12.1, hematocrit 37.0, white count 7.3, platelet count 71,000. Electrolytes note a sodium of 138, potassium 3.4, chloride 104, bicarbonate 26, BUN 17, creatinine 1.11, and glucose 109. Initial troponin was 0.105 with followup values of 0.128 and 0.109. CK is normal at 86 with an MB fraction of 3.4. Carotid ultrasound was unremarkable. Chest x-ray shows no acute disease. CT scan of the head shows an old left cerebellar infarction. child welfare specialist notes sinus rhythm. Initial EKG noted atrial fibrillation with a rapid ventricular response with an incomplete left bundle branch block and a lateral ST abnormality. ECG this morning notes sinus rhythm with an old anteroseptal infarction and a complete left bundle branch block with repolarization changes. IMPRESSION: Mrs. Vasquez was admitted with transient ischemic attack, which most likely was embolic in nature realizing her atrial fibrillation with rapid ventricular response at the time of her presentation. Her CHADS score is quite high, suggesting she would benefit from use of long-term anticoagulation. However, she is considered quite high risk due to her multiple falls with significant trauma. At this point, will need to be discussed in greater detail. Her mildly elevated troponin is noted. Likely secondary to her rapid ventricular response and atrial fibrillation in the face of her coronary artery disease and known left ventricular hypertrophy. We could consider increasing her carvedilol. PLAN: 1. Need to discuss the pros and cons of long-term anticoagulation with the patient and her medical team. 2. Consider increasing carvedilol to 12.5 mg b.i.d. 3. Await echocardiogram. 4. Further recommendations depending on her clinical course.
--- NOTE | 2017-03-21 17:04 | Pharmacy Progress Note ---
Pharmacist Stroke Counseling Date of Service Mar 21, 2017. Scope Pharmacy has been consulted to provide medication discharge counseling for this patient admitted with ischemic stroke/hemorrhagic stroke/ transient ischemic attack as per the Pharmacist Discharge Counseling for Stroke Patients Protocol. Medications on Discharge New Medications: Apixaban (Eliquis) 2.5 Mg Tab 2.5 MG PO BID for 30 Days, #60 TAB Carvedilol (Coreg) 12.5 Mg Tab 1 TAB PO BID for 30 Days, #60 TAB 5 Refills Continued Medications: Aspirin (Aspirin Ec) 81 Mg Tab 81 MG PO DAILY Calcium/Vitamin D (Os-Emile 500 Plus D) Tab 2 TAB PO BID, TAB Gabapentin (Gabapentin) 400 Mg Cap 400 MG PO BID Ipratropium [place] (Ipratropium [place]) 0.5 Mg/2.5 Ml Nebu 1 VIAL NEB Q4 for 30 Days, #300 ML 3 Refills Ipratropium-Albuterol (Combivent Respimat) 1 Aer Aer 1 PUFF INH PRN for SOB/Wheezing, #4 Isosorbide Mononitrate Ext Rel (Imdur Ext Rel) 30 Mg Tabcr 30 MG PO DAILY Lovastatin (Mevacor) 40 Mg Tab 40 MG PO DAILY, #30 Nortriptyline HCl (Nortriptyline HCl) 10 Mg Cap 20 MG PO HS Pantoprazole (Pantoprazole Sodium) 40 Mg Tab 40 MG PO DAILY, #30 Valsartan (Valsartan) 40 Mg Tab 40 MG PO QAM Discontinued Medications: Carvedilol (Coreg) 6.25 Mg Tab 6.25 MG PO BID, TAB Action The above medications, specifically ones for stroke treatment/prophylaxis, have been reviewed in detail with the patient and/or patient uniforms sales representative(s) prior to discharge. This includes indication, common adverse reactions, drug interactions, and medication administration. Medication counseling has been employed using the teach-back method to ensure understanding. Outcome The patient and/or patient uniforms sales representative(s) have demonstrated understanding of the medications. Please note, they are aware that the pharmacist will call them within 72 hours post-discharge to confirm that the appropriate medications are being taken and answer any further medication related questions the patient might have at that time. Contact information Individual to be contacted: patient Relationship to patient (if applicable): Phone number: [phone] Best time to call: anytime - just not early AM Additional comments: * I had the pleasure of counseling Ms. Vasquez and one of her sons today * The Eliquis was reviewed in great detail since this is the only new medication for her. She received a dose prior to leaving the hospital and is aware to take her next dose tomorrow AM. She was given a prescription card to receive 30 days free of the Eliquis and a family member had already called about it. They were concerned about their pharmacy closing at 6 pm today so I told them the prescription could always be sent to another pharmacy if they were not able to pick it up in time. She has a history of a head bleed s/p fall on warfarin so we discussed being cautious now that she will be on both apixaban and aspirin. * Regarding her lovastatin, I'm assuming with her advanced age and cholesterol levels, she would not need to be switched to intensive statin therapy. I did confirm that she takes this in the evening for maximum effect. Thank you for allowing pharmacy to be involved in the care of this patient. Please call [phone] or [phone] with any additional questions
[2017-03-21 18:12] VITALS: BP 163/80; PULSE 79; TEMP 36.8; O2SAT 93
[2017-03-21] MEDS ORDERED: LOVASTATIN 20 MG TAB PO SCH (21:00)
--- NOTE | 2017-03-21 22:46 | Discharge Summary ---
Discharge Summary Date of Service Mar 21, 2017. Discharge Summary Admission Date: Mar 20, 2017 at 15:26 Discharge Date: Mar 21, 2017 Discharge Disposition: Home with services Principal Diagnosis: TIA Problems/Secondary Diagnoses: afib rvr Immunizations: Have You Had Influenza Vaccine: Yes Influenza Vaccine Date: Nov 08, 2011 History of Tetanus Vaccine?: No History of Pneumococcal: No Pneumococcal Date: Jan 01, 2009 History of Hepatitis B Vaccine: No Discharge Exam Review of Systems: Constitutional: No fever, No chills, No sweats Respiratory: No cough, No sputum, No wheezing Cardiovascular: No chest pain, No palpitations Abdomen: + pain, No nausea, No vomiting, No diarrhea, No constipation Genitourinary - Female: No dysuria Physical Exam: General Appearance: WD/WN, no apparent distress Respiratory/Chest: chest non-tender, lungs clear, normal breath sounds Cardiovascular: regular rate, rhythm, no edema, no gallop Abdomen / GI: normal bowel sounds, non tender, soft Neurologic/Psychiatric: pre press proofer II-XII nml as tested, no motor/sensory deficits , alert, normal mood/affect, normal reflexes, oriented x 3 Skin: normal color, warm/dry, no rash Hospital Course 81 female with PMH of TIA, s/p CABGx2 (2010),subdural hematoma with residual seizures, presented to [facility] after experiencing left sided facial droop and increase slurred speech possibly secondary to TIA - could be thrombotic or embolic. At baseline, the patient has a slurred speech resulting from a cerebellar stroke. The patient's new neurologic symptoms resolved shortly after arriving to the emergency room, although the patient was found to have atrial fibrillation. Goal of the hospitalization included the following; neuro/cardio consultation, imaging to rule out new areas of ischemia and medical management and education for prevention of future ischemic events. In the ED, the patient converted to NSR with Cardizem. ECHO did not show significant new changes, but the EKG did show changes indicative of anteroseptal infarct. Neurology could not appreciate significant changes on exam and MRI. After consultation between the hospitalist team, neurology and cardiology, it was determined that the patients risk for stroke was of significance to warrant anticoagulation with Eliquis. The patient was counseled regarding bleeding risk. Patient has a PMHx of subdural hematoma and multiple falls. Patient's Coreg was increased to 12.5 BID for afib prevention. Home dose aspirin was continued. Patient was also found to have orthopedic changes on CT including evidence of L1 fracture and hip degeneration at site of arthroplasty. Patient is asymptomatic and thus encouraged to follow up with these findings with outpatient orthopedics. Arrangements are being made for follow up by [facility] case management. Total Time Spent: Greater than 30 minutes This includes examination of the patient, discharge planning, medication reconciliation, and communication with other providers. Discharge Instructions Please refer to the electronic Patient Visit Report (Discharge Instructions) for additional information. Additional Copies To Crystal Mcguire C.R.N.P Reviewed: Pt Seen/Exam by Me History no further left facial weakness. no palpitation Constitutional: denies: fever Respiratory: negative: short of breath Cardiovascular: denies chest pain General Appearance: no apparent distress Respiratory: lungs clear, no respiratory distress Cardiovascular: regular rate, rhythm Gastrointestinal: soft Neurologic/Psychiatric: alert, oriented x 3 Skin Characteristics: warm/dry Assessment/Plan Resident Physician Supervision Note: I independently interviewed and examined the patient and verified the godinez history and physical, reviewed labs and image studies, discussed the case with the resident Dr. Richardson and agree with the findings and care plan. Time spent in discharge 40 min
--- NOTE | 2017-03-23 14:10 | Pharmacy Progress Note ---
Pharmacist Post D/C Phone Note Date of phone call: Mar 23, 2017. Individual with whom pharmacist spoke to: Patient The following questions were reviewed during the phone call with responses listed below each: Can you tell me the medications that you are currently taking as well as when and how you take each medication? - Medications Dose Route/Sig Max Daily Dose Days Date Category Coreg (Carvedilol) 12.5 Mg Tab 1 Tab PO BID 30 03/21/17 Rx Eliquis (Apixaban) 2.5 Mg Tab 2.5 Mg PO BID 30 03/21/17 Rx Ipratropium [place] 0.5 Mg/2.5 Ml Nebu 1 Vial NEB Q4 30 03/20/17 Reported Os-Emile 500 Plus D (Calcium/Vitamin D) Tab 2 Tab PO BID 03/20/17 Reported Valsartan 40 Mg Tab 40 Mg PO QAM 02/07/17 Reported Nortriptyline HCl 10 Mg Cap 20 Mg PO HS 02/07/17 Reported Gabapentin 400 Mg Cap 400 Mg PO BID 02/07/17 Reported Imdur Ext Rel (Isosorbide Mononitrate) 30 Mg Tabcr 30 Mg PO DAILY 02/07/17 Reported Aspirin Ec (Aspirin) 81 Mg Tab 81 Mg PO DAILY 11/20/14 Reported Combivent Respimat (Ipratropium-Albuterol) 1 Aer Aer 1 Puff INH PRN 05/08/14 Reported Pantoprazole Sodium (Pantoprazole) 40 Mg Tab 40 Mg PO DAILY 05/08/14 Reported Mevacor (Lovastatin) 40 Mg Tab 40 Mg PO DAILY 05/08/14 Reported When have you missed any doses of your medications? - none What side effects are you having from your medications? - none What questions do you have about your medications? - none What problems are you having obtaining your medications? - had to go to a different pharmacy on discharge since her pharmacy was closed but all is well and she has the meds she needs When is your next appointment with your primary care doctor? - 03/31/17 As per the Pharmacist Discharge Counseling for Stroke Patients Protocol, this phone call has been completed within 72 hours of discharge. Thank you for allowing us to be involved in the care of this patient.
== END 2017-03-21 19:23 | disposition home health service (06) | DRG 69 ==
LOC: C.EDB 11:05 → C.2T 15:26 → ENRESERV 17:41
PROVIDERS: ADMIT Family Medicine; ATTEND Family Medicine
DX: G45.9 Transient cerebral ischemic attack, unspecified (principal); S32.010A Wedge compression fracture of first lumbar vertebra, initial encounter for closed fracture; I13.0 Hypertensive heart and chronic kidney disease with heart failure and stage 1 through stage 4 chronic kidney disease, or unspecified chronic kidney disease; I50.22 Chronic systolic (congestive) heart failure; N18.4 Chronic kidney disease, stage 4 (severe); X58.XXXA Exposure to other specified factors, initial encounter; I48.91 Unspecified atrial fibrillation; R79.89 Other specified abnormal findings of blood chemistry; R33.9 Retention of urine, unspecified; I25.5 Ischemic cardiomyopathy; E78.5 Hyperlipidemia, unspecified; J44.9 Chronic obstructive pulmonary disease, unspecified; K59.00 Constipation, unspecified; D17.5 Benign lipomatous neoplasm of intra-abdominal organs; K21.9 Gastro-esophageal reflux disease without esophagitis; Z66 Do not resuscitate; I69.393 Ataxia following cerebral infarction; Z91.81 History of falling; Z87.828 Personal history of other (healed) physical injury and trauma; Z87.81 Personal history of (healed) traumatic fracture; Z95.0 Presence of cardiac pacemaker; Z95.1 Presence of aortocoronary bypass graft; Z95.2 Presence of prosthetic heart valve; Z96.641 Presence of right artificial hip joint; Z90.49 Acquired absence of other specified parts of digestive tract; Z90.710 Acquired absence of both cervix and uterus; Z98.890 Other specified postprocedural states; Z87.891 Personal history of nicotine dependence; Z79.82 Long term (current) use of aspirin; Z79.899 Other long term (current) drug therapy; Z88.0 Allergy status to penicillin; Z88.1 Allergy status to other antibiotic agents; Z88.2 Allergy status to sulfonamides; Z88.5 Allergy status to narcotic agent; Z88.8 Allergy status to other drugs, medicaments and biological substances; Z82.49 Family history of ischemic heart disease and other diseases of the circulatory system

== ENCOUNTER → 2017-03-28 | Outpatient (CLI) | payer OTHER ==
[~2017-03-28] MED LIST changes: +APIX1TAB PO; +ATRINS NEB; +CALC500C70 PO; -CALC600T PO; +CARV12.52 PO; -CARV6.25 PO; -IPRASOL4 INH; -LSX40 PO
== END | disposition home or self-care (01) ==
LOC: C.LABPVFM 16:44
PROVIDERS: ATTEND Family Medicine
DX: I10 Essential (primary) hypertension (principal); G45.9 Transient cerebral ischemic attack, unspecified; R19.7 Diarrhea, unspecified

== ENCOUNTER 2017-04-07 12:23 | Observation (INO) | payer OTHER ==
[~2017-04-07] VITALS: Ht 152.4 cm; Wt 53.5 kg
[2017-04-07] VITALS (10 sets, daily range): BP systolic 130–202; BP diastolic 59–123; PULSE 80–100; TEMP 36.6–37.4; O2SAT 95–99; Ht 152.4 cm; Wt 53.5 kg
[~2017-04-07 12:23] MED LIST changes: -CRG125 PO; -LNX125 PO; -LSX20 PO; -MCRK20 PO
[2017-04-07] MEDS ORDERED: NITROGLYCERIN 0.4 MG SL PER TAB CHARGE SL STA (12:29)
[2017-04-07] MEDS ORDERED: ISOSORBIDE MONONITRATE 30 MG TABCR PO ONE (12:30)
[2017-04-07] MEDS ORDERED: VALSARTAN 80 MG TAB PO STA (12:56)
[2017-04-07] MEDS ORDERED: FUROSEMIDE INJ 20 MG in SYRINGE 0 ML IV ONE (13:00)
[2017-04-07 13:02] LABS: BASO % 0.2 %; BASO ABS # 0.02 K/uL (0-0.2); EOS % 0.4 %; EOS ABS # 0.04 K/uL (0-0.5); HEMATOCRIT 40.6 % (37-47); HEMOGLOBIN 13.2 g/dL (12.0-16.0); IG# 0.02 K/uL (0.00-0.02); LYMPH % 21.9 %; MEAN CELL VOLUME 84.8 fL (80-100); MEAN CORPUSCULAR HEMOGLOBIN 27.6 pg (25-34); MEAN CORPUSCULAR HGB CONC 32.5 g/dl (32-36); MEAN PLATELET VOLUME 10.8 fL (7.4-10.4); MONO % 2.7 %; MONO ABS # 0.25 K/uL (0.11-0.59); NEUT % 74.6 %; NEUT ABS # 6.81 K/uL (1.4-6.5); PLATELET COUNT 183 K/uL (130-400); RED CELL DISTRIBUTION WIDTH CV 16.5 % (11.5-14.5); RED CELL DISTRIBUTION WIDTH SD 50.9 fL (36.4-46.3); WHITE BLOOD COUNT 9.14 K/uL (4.8-10.8)
[2017-04-07] MEDS ORDERED: FUROSEMIDE 40 MG/4 ML VIAL ONE (13:03)
--- NOTE | 2017-04-07 13:04 | DIAGNOSTIC IMAGING REPORT ---
CHEST ONE VIEW PORTABLE CLINICAL HISTORY: EVALUATE RESPIRATORY DISTRESS.DYSPNEA dyspnea COMPARISON STUDY: 03/20/2017 FINDINGS: Mild increase in pulmonary vascularity compared to the prior study. Prior median sternotomy and bipolar cardiac pacemaker placement. Subtle increase in volume of bilateral pleural effusions. Chronic pleural reactive changes left base. IMPRESSION: Developing congestive heart failure The above report was generated using voice recognition software. It may contain grammatical, syntax or spelling errors. Electronically signed by: Jered Gaona M.D. 04/07/2017 1:03 PM Dictated Date/Time: 04/07/2017 1:02 PM
--- NOTE | 2017-04-07 13:14 | EMERGENCY ROOM VISIT NOTE ---
History Report prepared by Chaim: Abdi Madsen Under the Supervision of: Dr. Gautam Jimenez M.D. First contact with patient: 12:24 Chief Complaint: RESPIRATORY PROBLEMS Stated Complaint: BREATHING DIFFICULTY History of Present Illness The patient is a 82 year old white female with a past medical history of A-fib, CKD, CHF, CVA, s/p pacemaker placement who presents to the ED with a cc of worsening shortness of breath beginning a few days ago. Per EMS, patient has been using accessory muscles to breath. Patient not on supplemental oxygen at home. Positive leg swelling, cough. Negative urinary symptoms, fevers, chills, nausea, vomiting, abdominal pain, chest pain. Source of History: patient Onset: A few days ago Quality: other (shortness of breath) Timing: worsening Associated Symptoms: + cough, No fevers, No chills, No chest pain, No nausea , No vomiting, No abdominal pain Note: Positive leg swelling. Review of Systems See HPI for pertinent positives and negatives. A total of ten systems were reviewed and were otherwise negative. Past Medical & Surgical Medical Problems: (1) AORTOCORONARY BYPASS (2) ATRIAL FIBRILLATION (3) Atrial fibrillation with RVR (4) CHRONIC KIDNEY DISEASE, STAGE III (MODERATE) (5) CHRONIC SYSTOLIC HRT FAILURE (6) CORON ATHEROSCLER NOS TYPE VESSEL, GALENA OR GRAFT (7) CVA (8) Elevated troponin (9) Facial droop (10) Implantation of cardiac pacemaker (11) Lower GI bleed (12) PNEUMONIA, ORGANISM NOS (13) Seizure (14) Subdural hematoma Family History Heart disease Social History Smoking Status: Former Smoker Alcohol Use: none Drug Use: none Marital Status: Housing Status: lives alone Occupation Status: retired Current/Historical Medications Scheduled Apixaban (Eliquis), 2.5 MG PO BID Aspirin (Aspirin Ec), 81 MG PO QAM Calcium/Vitamin D (Os-Emile 500 Plus D), 2 TAB PO BID Carvedilol (Carvedilol), 12.5 MG PO BID Gabapentin (Gabapentin), 400 MG PO BID Isosorbide Mononitrate Ext Rel (Imdur Ext Rel), 30 MG PO QAM Lovastatin (Mevacor), 40 MG PO HS Nortriptyline HCl (Nortriptyline HCl), 20 MG PO HS Pantoprazole (Pantoprazole Sodium), 40 MG PO QAM Valsartan (Valsartan), 40 MG PO QAM Scheduled PRN Ipratropium [place] (Ipratropium [place]), 1 VIAL NEB Q4 PRN for SOB/Wheezing Ipratropium-Albuterol (Combivent Respimat), 1 PUFF INH UD PRN for SOB/Wheezing Allergies Coded Allergies: Cephalosporins (Verified Allergy, Severe, TONGUE SWELLING WITH KEFLEX, ) Penicillins (Verified Allergy, Severe, HIVES, SOB, 04/07/17) Tamsulosin (Verified Allergy, Severe, SHORTNESS OF BREATH, 04/07/17) Butalbital (Verified Allergy, Intermediate, SHORTNESS OF BREATH, 04/07/17) Levetiracetam (Verified Allergy, Intermediate, RASH, 04/07/17) Sulfa Antibiotics (Verified Allergy, Unknown, "SULFA DRUGS" - UNKNOWN, ) Morphine (Verified Adverse Reaction, Unknown, hallucinations, 04/07/17) Physical Exam Vital Signs Date Time Temp Pulse Resp B/P (MAP) Pulse Ox O2 Delivery O2 Flow Rate FiO2 04/07/17 14:19 81 20 181/83 97 BiPAP 04/07/17 13:39 86 20 193/106 96 BiPAP 04/07/17 13:21 36.7 87 22 185/100 96 BiPAP 04/07/17 12:40 100 BiPAP 04/07/17 12:37 98 04/07/17 12:35 100 BiPAP 04/07/17 12:34 100 CPAP 04/07/17 12:34 37.2 98 20 202/145 99 CPAP 04/07/17 12:29 100 99 28 Physical Exam GENERAL: Awake, alert, well-appearing, NAD. CPAP mask in place. Not in extremis. HENT: Normocephalic, atraumatic. EYES: Normal conjunctiva. Sclera non-icteric. NECK: Supple. No nuchal rigidity. FROM. RESPIRATORY: Bibasilar crackles. Decreased breath sounds bilaterally. CARDIAC: RRR, no MRG ABDOMEN: Soft, NTND, BS+ MSK: No chest wall TTP. RLE greater than LLE edema (1+). No calf pain. No erythema. Negative Homans sign. NEURO: GCS 15, CN 2-12 intact, moves all 4s on command SKIN: No rash or jaundice noted. Medical Decision & Procedures ER Provider Diagnostic Interpretation: Radiology results as stated below per my review and radiologist interpretation: CHEST ONE VIEW PORTABLE FINDINGS: Mild increase in pulmonary vascularity compared to the prior study. Prior median sternotomy and bipolar cardiac pacemaker placement. Subtle increase in volume of bilateral pleural effusions. Chronic pleural reactive changes left base. IMPRESSION: Developing congestive heart failure The above report was generated using voice recognition software. It may contain grammatical, syntax or spelling errors. Electronically signed by: Jered Gaona M.D. 04/07/2017 1:03 PM Laboratory Results 04/07/17 12:45 Red Blood Count 4.79, Mean Corpuscular Volume 84.8, Mean Corpuscular Hemoglobin 27.6, Mean Corpuscular Hemoglobin Concent 32.5, Mean Platelet Volume 10.8, Neutrophils (%) (Auto) 74.6, Lymphocytes (%) (Auto) 21.9, Monocytes (%) (Auto) 2.7, Eosinophils (%) (Auto) 0.4, Basophils (%) (Auto) 0.2, Neutrophils # (Auto) 6.81, Lymphocytes # (Auto) 2.00, Monocytes # (Auto) 0.25, Eosinophils # (Auto) 0.04, Basophils # (Auto) 0.02 04/07/17 12:45 Test 04/07/17 12:45 04/07/17 12:55 04/07/17 12:56 04/07/17 13:15 White Blood Count 9.14 K/uL (4.8-10.8) Red Blood Count 4.79 M/uL (4.2-5.4) Hemoglobin 13.2 g/dL (12.0-16.0) Hematocrit 40.6 % (37-47) Mean Corpuscular Volume 84.8 fL (80-100) Mean Corpuscular Hemoglobin 27.6 pg (25-34) Mean Corpuscular Hemoglobin Concent 32.5 g/dl (32-36) Platelet Count 183 K/uL (130-400) Mean Platelet Volume 10.8 fL (7.4-10.4) Neutrophils (%) (Auto) 74.6 % Lymphocytes (%) (Auto) 21.9 % Monocytes (%) (Auto) 2.7 % Eosinophils (%) (Auto) 0.4 % Basophils (%) (Auto) 0.2 % Neutrophils # (Auto) 6.81 K/uL (1.4-6.5) Lymphocytes # (Auto) 2.00 K/uL (1.2-3.4) Monocytes # (Auto) 0.25 K/uL (0.11-0.59) Eosinophils # (Auto) 0.04 K/uL (0-0.5) Basophils # (Auto) 0.02 K/uL (0-0.2) RDW Standard Deviation 50.9 fL (36.4-46.3) RDW Coefficient of Variation 16.5 % (11.5-14.5) Immature Granulocyte % (Auto) 0.2 % Immature Granulocyte # (Auto) 0.02 K/uL (0.00-0.02) Anion Gap 7.0 mmol/L (3-11) Est Creatinine Clear Calc Drug Dose 29.3 ml/min Estimated GFR () 50.6 Estimated GFR (Non- 43.7 BUN/Creatinine Ratio 11.5 (10-20) Calcium Level 9.5 mg/dl (8.5-10.1) Total Bilirubin 0.7 mg/dl (0.2-1) Aspartate Amino Transf (AST/SGOT) 27 U/L (15-37) Alanine Aminotransferase (ALT/SGPT) 17 U/L (12-78) Alkaline Phosphatase 101 U/L (45-117) Troponin I 0.045 ng/ml (0-0.045) Pro-B-Type Natriuretic Peptide 95823 pg/ml (0-1800) Total Protein 8.5 gm/dl (6.4-8.2) Albumin 4.0 gm/dl (3.4-5.0) Globulin 4.5 gm/dl (2.5-4.0) Albumin/Globulin Ratio 0.9 (0.9-2) Chemistry Specimen Hemolysis Venous Blood pH 7.38 (7.36-7.41) Venous Blood Partial Pressure CO2 49 mmHg (38.0-50.0) Venous Blood Partial Pressure O2 41 mmHg Venous Blood HCO3 28 mmol/L Venous Blood Oxygen Saturation 72.8 % Venous Blood Base Excess 2.1 mEq/L Bedside Lactic Acid Venous 1.27 mmol/L (0.90-1.70) Urine Color YELLOW Urine Appearance CLEAR (CLEAR) Urine pH 7.5 (4.5-7.5) Urine Specific [place] 1.017 (1.000-1.030) Urine Protein 2+ (NEG) Urine Glucose (UA) NEG (NEG) Urine Ketones NEG (NEG) Urine Occult Blood NEG (NEG) Urine Nitrite NEG (NEG) Urine Bilirubin NEG (NEG) Urine Urobilinogen NEG (NEG) Urine Leukocyte Esterase TRACE (NEG) Urine WBC (Auto) 1-5 /hpf (0-5) Urine RBC (Auto) 0-4 /hpf (0-4) Urine Hyaline Casts (Auto) 1-5 /lpf (0-5) Urine Epithelial Cells (Auto) >30 /lpf (0-5) Urine Bacteria (Auto) NEG (NEG) Test 04/07/17 13:27 Prothrombin Time 10.8 SECONDS (9.0-12.0) Prothromb Time International Ratio 1.0 (0.9-1.1) Activated Partial Thromboplast Time 27.8 SECONDS (21.0-31.0) Partial Thromboplastin Ratio 1.1 Laboratory results reviewed by me Medications Administered Medications (Trade) Dose Ordered Sig/[place] Route Start Time Stop Time Status Last Admin Dose Admin Nitroglycerin (Nitrostat Tab) 0.4 mg NOW STAT SL 04/07/17 12:29 04/07/17 12:33 DC 04/07/17 13:01 0.4 MG Isosorbide Mononitrate (Imdur Ext Rel Tab) 30 mg NOW ONCE PO 04/07/17 12:30 04/07/17 12:33 DC 04/07/17 13:01 30 MG Valsartan (Diovan Tab) 40 mg ONE STAT PO 04/07/17 12:56 04/07/17 12:58 DC 04/07/17 13:24 40 MG Furosemide 20 mg/ Syringe 2 ml @ 4 mls/min ONE ONCE IV 04/07/17 13:00 04/07/17 13:01 DC 04/07/17 13:24 4 MLS/MIN ECG Per My Interpretation Indication: SOB/dyspnea Rate (beats per minute): 97 Rhythm: normal sinus Findings: LBBB (Wide QRS consistent with LBBB), T-wave inversion (Lateral), left axis deviation, other (No scarbosa criteria) Comparison ECG Date: 03/21/2017 Change: no significant change ED Course 1225: The patient was evaluated in room B1. A complete history and physical exam was performed. 1254: Preformed bedside ultrasound. No pericardial effusion. Poor EF. 1410: Upon reexamination, the patient was resting comfortably. I discussed the test results and treatment plan with her. The patient will be evaluated for further management. Medical Decision The patient is a 82 year old white female with a past medical history of A-fib, CKD, CHF, CVA, s/p pacemaker placement who presents to the ED with a cc of worsening shortness of breath beginning a few days ago. Differential diagnosis: Etiologies such as infections, reactive airway disease, pneumonia, pneumothorax , COPD, CHF, cardiac ischemia, pulmonary embolism, musculoskeletal, gastrointestinal, as well as others were entertained. Patient was seen and evaluated the bedside. Patient was coming in [place] clinic with concerns for shortness of breath. Patient was fairly hypertensive in clinic with systolic greater than 200. Patient was placed on CPAP and brought to have our resuscitation base. Of note patient still had an elevated BP. Bedside ultrasound did show a very depressed EF but without any pericardial effusion. Antihypertensives were ordered along with sublingual nitro. Patient was also given a small dose of Lasix. Patient's chest x-ray concerning for developing CHF. Patient was switched to BiPAP here in the emergency department. Patient was feeling much improved. Patient did state that her symptoms been ongoing for several days. Patient has noted some weight changes and lower extremity swelling. Patient is on apixaban at baseline. Patient's EKG does show left bundle branch block pattern with no Sgarbossa criteria present. SBP improved. Patient denies any chest pain. Patient was admitted to the medicine service. Medication Reconcilliation Current Medication List: was personally reviewed by md Blood Pressure Screening Patient's blood pressure: Elevated blood pressure Blood pressure disposition: Referred to PCP Consults Time Called: [id number] Consulting Physician: Dr. Davis - [facility] [place] Hospitalist Returned Call: [phone] Dr. Davis was made aware of the patient's case. The patient will be evaluated for further treatment and disposition. Impression Primary Impression: Acute exacerbation of CHF (congestive heart failure) Additional Impression: Hypertensive emergency Critical Care I have personally spent greater than 45 minutes of critical care time in the direct management of this patient. This includes bedside care, interpretation of diagnostic studies, and testing, discussion with consultants, patient, and family members, and other required patient management activities. This 45 minutes is in excess of all separately billable procedures. Scribe Attestation The scribe's documentation has been prepared under my direction and personally reviewed by me in its entirety. I confirm that the note above accurately reflects all work, treatment, procedures, and medical decision making performed by me. Departure Information Dispostion Being Evaluated By Hospitalist Referrals Crystal Mcguire, CarloN.P (PCP) Patient Instructions My [facility] Problem Qualifiers Primary Impression: Acute exacerbation of CHF (congestive heart failure) Heart failure type: systolic Qualified Codes: I50.23 - Acute on chronic systolic (congestive) heart failure
[2017-04-07 13:37] LABS: CALCIUM 9.5 mg/dl (8.5-10.1); CREATININE 1.15 mg/dl (0.60-1.20); TOTAL PROTEIN 8.5 gm/dl (6.4-8.2)
[2017-04-07 13:46] LABS: PTT PATIENT 27.8 SECONDS (21.0-31.0)
[2017-04-07] MEDS ORDERED: CRG125 PO (14:19)
[2017-04-07] MEDS ORDERED: APIX1TAB PO (14:19)
[2017-04-07] MEDS ORDERED: ALUMINUM/MAGNESIUM/SIMETH (MAALOX MAX) 30 ML UDC PO PRN (15:30)
[2017-04-07] MEDS ORDERED: ACETAMINOPHEN 325 MG TAB PO PRN (15:30)
[2017-04-07] MEDS ORDERED: ONDANSETRON INJ 2 MG/ML 2 ML VIAL IV PRN (15:30)
[2017-04-07] MEDS ORDERED: POLYETHYLENE (MIRALAX) 17 GM PACK PO PRN (15:30)
[2017-04-07] MEDS ORDERED: MoRPHine SULFATE 2 MG/ML CARP IV PRN (15:30)
[2017-04-07] MEDS ORDERED: IPRATROPIUM BROMIDE NEB SOLN 0.02% 2.5 ML VIAL INH PRN (15:30)
[2017-04-07] MEDS ORDERED: MAGNESIUM HYDROXIDE SUSP 30 ML UDC PO PRN (15:30)
--- NOTE | 2017-04-07 16:07 | History and Physical ---
History & Physical Date & Time of Service: Apr 07, 2017 at 15:45 Chief Complaint: Breathing Difficulty Primary Care Physician: Crystal Mcguire C.R.N.P History of Present Illness Source: patient, family, hospital records 82 y/o F Hx CAD, PAF, heart block - pacer, subdural hematoma, PAD, CKD III, Combined CHF. Pt developed SOB this AM which progressed to respiratory distress within a few hours. She denies CP, denies a productive cough or fevers. Initial assessment including labs, imaging and clinical exam is consistent with CHF exacerbation. The pt required BiPAP on arrival to the ER. She improved following 60 mg IV Lasix and is tolerating a NC at the time of admission. The pt was admitted 2 weeks prior due to a TIA. 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% 2) CAD - 2v CABG 2010 3) CKD III 4) Complete heart block - pace placed 2011 5) Seizure disorder 6) Paroxysmal AF 7) Subdural hematoma 8) History of TIA 9) PAD Surgical 1) Cholecystectomy 2) Hysterectomy 3) Mitral valve repair 2011 4) CABG 2011 5) BL lens implants Family History Heart disease Social History Smoking Status: Former Smoker Drug Use: none Marital Status: Housing status: lives alone Occupational Status: retired Immunizations History of Influenza Vaccine: Yes Influenza Vaccine Date: Nov 08, 2011 History of Tetanus Vaccine?: No History of Pneumococcal: No Pneumococcal Date: Jan 01, 2009 History of Hepatitis B Vaccine: No Multi-Drug Resistant Organisms History of MDRO: No Allergies Coded Allergies: Cephalosporins (Verified Allergy, Severe, TONGUE SWELLING WITH KEFLEX, ) Penicillins (Verified Allergy, Severe, HIVES, SOB, 04/07/17) Tamsulosin (Verified Allergy, Severe, SHORTNESS OF BREATH, 04/07/17) Butalbital (Verified Allergy, Intermediate, SHORTNESS OF BREATH, 04/07/17) Levetiracetam (Verified Allergy, Intermediate, RASH, 04/07/17) Sulfa Antibiotics (Verified Allergy, Unknown, "SULFA DRUGS" - UNKNOWN, ) Morphine (Verified Adverse Reaction, Unknown, hallucinations, 04/07/17) Home Medications Scheduled Apixaban (Eliquis), 2.5 MG PO BID Aspirin (Aspirin Ec), 81 MG PO QAM Calcium/Vitamin D (Os-Emile 500 Plus D), 2 TAB PO BID Carvedilol (Carvedilol), 12.5 MG PO BID Gabapentin (Gabapentin), 400 MG PO BID Isosorbide Mononitrate Ext Rel (Imdur Ext Rel), 30 MG PO QAM Lovastatin (Mevacor), 40 MG PO HS Nortriptyline HCl (Nortriptyline HCl), 20 MG PO HS Pantoprazole (Pantoprazole Sodium), 40 MG PO QAM Valsartan (Valsartan), 40 MG PO QAM Scheduled PRN Ipratropium [place] (Ipratropium [place]), 1 VIAL NEB Q4 PRN for SOB/Wheezing Ipratropium-Albuterol (Combivent Respimat), 1 PUFF INH UD PRN for SOB/Wheezing Review of Systems Constitutional: No fever, No chills, No sweats Eyes: No worsening of vision ENT: No hearing loss, No unusual epistaxis, No nasal symptoms Respiratory: + shortness of breath, + dyspnea on exertion, + dyspnea at rest, No cough, No sputum, No wheezing Cardiovascular: No chest pain Abdomen: No pain, No nausea, No vomiting Musculoskeletal: No joint pain Genitourinary - Female: No dysuria, No urinary frequency Neurologic: No memory loss, No paralysis, No weakness Psychiatric: No depression symptoms Endocrine: No fatigue Hematologic / Lymphatic: No abnormal bleeding/bruising Integumentary: No rash Allergic / Immunologic: No environmental allergies Physical Exam Vital Signs Date Time Temp Pulse Resp B/P (MAP) Pulse Ox O2 Delivery O2 Flow Rate FiO2 04/07/17 14:45 78 20 178/94 98 BiPAP 04/07/17 14:19 81 20 181/83 97 BiPAP 04/07/17 13:39 86 20 193/106 96 BiPAP 04/07/17 13:21 36.7 87 22 185/100 96 BiPAP 04/07/17 12:40 100 BiPAP 04/07/17 12:37 98 04/07/17 12:35 100 BiPAP 04/07/17 12:34 100 CPAP 04/07/17 12:34 37.2 98 20 202/145 99 CPAP 04/07/17 12:29 100 99 28 General Appearance: WD/WN, no apparent distress Head: normocephalic Eyes: normal inspection ENT: normal ENT inspection, pharynx normal Neck: supple, + JVD Respiratory/Chest: chest non-tender, + crackles (BL to mid lungs) Cardiovascular: regular rate, rhythm, + systolic murmur Abdomen/GI: normal bowel sounds, non tender, soft Back: normal inspection, no CVA tenderness, + pertinent finding (Kyphosis) Neurologic/Psych: home care administrator II-XII nml as tested, no motor/sensory deficits, alert Skin: normal color Diagnostics Laboratory Results Results Past 24 Hours Test 04/07/17 12:45 04/07/17 12:55 04/07/17 12:56 04/07/17 13:15 Range/Units White Blood Count 9.14 4.8-10.8 K/uL Red Blood Count 4.79 4.2-5.4 M/uL Hemoglobin 13.2 12.0-16.0 g/dL Hematocrit 40.6 37-47 % Mean Corpuscular Volume 84.8 80-100 fL Mean Corpuscular Hemoglobin 27.6 25-34 pg Mean Corpuscular Hemoglobin Concent 32.5 32-36 g/dl Platelet Count 183 130-400 K/uL Mean Platelet Volume 10.8 7.4-10.4 fL Neutrophils (%) (Auto) 74.6 % Lymphocytes (%) (Auto) 21.9 % Monocytes (%) (Auto) 2.7 % Eosinophils (%) (Auto) 0.4 % Basophils (%) (Auto) 0.2 % Neutrophils # (Auto) 6.81 1.4-6.5 K/uL Lymphocytes # (Auto) 2.00 1.2-3.4 K/uL Monocytes # (Auto) 0.25 0.11-0.59 K/uL Eosinophils # (Auto) 0.04 0-0.5 K/uL Basophils # (Auto) 0.02 0-0.2 K/uL RDW Standard Deviation 50.9 36.4-46.3 fL RDW Coefficient of Variation 16.5 11.5-14.5 % Immature Granulocyte % (Auto) 0.2 % Immature Granulocyte # (Auto) 0.02 0.00-0.02 K/uL Sodium Level 138 136-145 mmol/L Potassium Level 4.0 3.5-5.1 mmol/L Chloride Level 104 98-107 mmol/L Carbon Dioxide Level 28 21-32 mmol/L Anion Gap 7.0 3-11 mmol/L Blood Urea Nitrogen 13 7-18 mg/dl Creatinine 1.15 0.60-1.20 mg/dl Est Creatinine Clear Calc Drug Dose 29.3 ml/min Estimated GFR () 50.6 Estimated GFR (Non- 43.7 BUN/Creatinine Ratio 11.5 10-20 Random Glucose 137 70-99 mg/dl Calcium Level 9.5 8.5-10.1 mg/dl Total Bilirubin 0.7 0.2-1 mg/dl Aspartate Amino Transf (AST/SGOT) 27 15-37 U/L Alanine Aminotransferase (ALT/SGPT) 17 12-78 U/L Alkaline Phosphatase 101 45-117 U/L Troponin I 0.045 0-0.045 ng/ml Pro-B-Type Natriuretic Peptide 54539 0-1800 pg/ml Total Protein 8.5 6.4-8.2 gm/dl Albumin 4.0 3.4-5.0 gm/dl Globulin 4.5 2.5-4.0 gm/dl Albumin/Globulin Ratio 0.9 0.9-2 Chemistry Specimen Hemolysis Venous Blood pH 7.38 7.36-7.41 Venous Blood Partial Pressure CO2 49 38.0-50.0 mmHg Venous Blood Partial Pressure O2 41 mmHg Venous Blood HCO3 28 mmol/L Venous Blood Oxygen Saturation 72.8 % Venous Blood Base Excess 2.1 mEq/L Bedside Lactic Acid Venous 1.27 0.90-1.70 mmol/L Urine Color YELLOW Urine Appearance CLEAR CLEAR Urine pH 7.5 4.5-7.5 Urine Specific [place] 1.017 1.000-1.030 Urine Protein 2+ NEG Urine Glucose (UA) NEG NEG Urine Ketones NEG NEG Urine Occult Blood NEG NEG Urine Nitrite NEG NEG Urine Bilirubin NEG NEG Urine Urobilinogen NEG NEG Urine Leukocyte Esterase TRACE NEG Urine WBC (Auto) 1-5 0-5 /hpf Urine RBC (Auto) 0-4 0-4 /hpf Urine Hyaline Casts (Auto) 1-5 0-5 /lpf Urine Epithelial Cells (Auto) >30 0-5 /lpf Urine Bacteria (Auto) NEG NEG Test 04/07/17 13:27 Range/Units Prothrombin Time 10.8 9.0-12.0 SECONDS Prothromb Time International Ratio 1.0 0.9-1.1 Activated Partial Thromboplast Time 27.8 21.0-31.0 SECONDS Partial Thromboplastin Ratio 1.1 Diagnostic Radiology CXR: CHF EKG Sinus, LBBB - evidence of prior inf infarct - non change from recent EKG Impression Assessment and Plan 82 y/o F Hx CAD, PAF, heart block - pacer, subdural hematoma, PAD, CKD III, Combined CHF. Pt developed SOB this AM which progressed to respiratory distress within a few hours. She denies CP, denies a productive cough or fevers. Initial assessment including labs, imaging and clinical exam is consistent with CHF exacerbation. The pt required BiPAP on arrival to the ER. She improved following 60 mg IV Lasix and is tolerating a NC at the time of admission. 1) Acute CHF exacerbation - Improving with diuresis - does not normally take any diuretics and may need to remain on a low dose going forward. Cont Carvedilol and Imdur. 2) PAF - Sinus rhythm on arrival - Cont Bblocker, Apixaban 3) CKD III - creat is at baseline 4) CAD - will r/o acute event as precipitating factor - cont B mike, Imdur, Statin Full code - Apixaban prophylaxis Total time for this admit including review of labs, meds, imaging, records, EKG - discussion with pt and ER attending - 37 min Level of Care Telemetry Resuscitation Status FULL RESUSCITATION VTE Prophylaxis VTE Risk Assessment Done? Y/N: Yes Risk Level: Moderate Given or contraindicated: Other Anticoagulation
[2017-04-07] MEDS ORDERED: IV FLUIDS COMPLETED PRN (16:30)
[2017-04-07] MEDS: FUROSEMIDE INJ 20 MG in SYRINGE 0 ML IV SCH (19:53)
[2017-04-07] MEDS: APIXABAN 2.5 MG TAB PO SCH (19:54)
[2017-04-07] MEDS: NORTRIPTYLINE HCL 10 MG CAP PO SCH (19:54)
[2017-04-07] MEDS: LOVASTATIN 20 MG TAB PO SCH (19:55)
[2017-04-07] MEDS: GABAPENTIN 400 MG CAP PO SCH (19:55)
[2017-04-07] MEDS: CALCIUM 600MG + VIT D 400 IU TAB PO SCH (19:56)
[2017-04-07] MEDS: CARVEDILOL 12.5 MG TAB PO SCH (19:56)
[2017-04-08] VITALS (15 sets, daily range): BP systolic 93–149; BP diastolic 48–82; PULSE 71–108; TEMP 36.5–37.1; O2SAT 94–98
[2017-04-08] MEDS ORDERED: METOPROLOL TARTRATE 1 MG/ML VIAL IV STA ×2 (00:15→01:09)
[2017-04-08] MEDS ORDERED: METOPROLOL TARTRATE 1 MG/ML VIAL ONE (00:19)
[2017-04-08 01:03] LABS: CALCIUM 9.2 mg/dl (8.5-10.1); CREATININE 1.53 mg/dl (0.60-1.20); POTASSIUM 3.3 mmol/L (3.5-5.1)
[2017-04-08] MEDS: POTASSIUM CHLR 10 MEQ / WTR 10 MEQ in PREMIXED WATER 100 ML IV SCH ×4 (02:40→04:38)
[2017-04-08] MEDS: FUROSEMIDE INJ 20 MG in SYRINGE 0 ML IV SCH ×3 (04:38→19:51)
[2017-04-08] MEDS ORDERED: DILTIAZEM HCL 5 MG/ML 5 ML VIAL IV STA (05:39)
[2017-04-08] MEDS ORDERED: SODIUM CHLORIDE 0.9% 250ML 250 ML IV PRN (05:45)
[2017-04-08 06:21] LABS: CALCIUM 9.1 mg/dl (8.5-10.1); CREATININE 1.32 mg/dl (0.60-1.20); POTASSIUM 3.4 mmol/L (3.5-5.1)
[2017-04-08] MEDS: CALCIUM 600MG + VIT D 400 IU TAB PO SCH ×2 (08:38→21:35)
[2017-04-08] MEDS: CARVEDILOL 12.5 MG TAB PO SCH ×2 (08:38→21:36)
[2017-04-08] MEDS: PANTOprazole SOD 40 MG TAB PO SCH (08:39)
[2017-04-08] MEDS: VALSARTAN 80 MG TAB PO SCH (08:39)
[2017-04-08] MEDS: ASPIRIN 81 MG ECTAB PO SCH (08:39)
[2017-04-08] MEDS: ISOSORBIDE MONONITRATE 30 MG TABCR PO SCH (08:39)
[2017-04-08] MEDS: GABAPENTIN 400 MG CAP PO SCH ×2 (08:39→21:34)
[2017-04-08] MEDS: APIXABAN 2.5 MG TAB PO SCH ×2 (08:40→21:36)
[2017-04-08] MEDS ORDERED: POTASSIUM CHLORIDE 20 MEQ TABCR PO ONE (09:00)
[2017-04-08] MEDS ORDERED: VALSARTAN 80 MG TAB PO SCH (09:00)
--- NOTE | 2017-04-08 09:01 | Family Medicine Progress Note ---
Progress Note Date of Service Apr 08, 2017. Subjective Voiding: genao catheter in place Went into atrial fibrillation with RVR overnight. Given metoprolol 5mg IV which didn't appear to slow her down much. Diltiazem 10mg IV given this morning and now running 90-100. She has known paroxysmal atrial fibrillation. Mrs Vasquez feels much better this morning when she came in. She reports a regular bowel movement yesterday. She notes she is having some abdominal pain but it has improved since yesterday. No chest pain or shortness of breath. No nausea or vomiting. All Other Systems: Reviewed and Negative Medications Current Inpatient Medications Medications (Trade) Dose Ordered Sig/Channing Route Start Time Stop Time Status Last Admin Dose Admin Acetaminophen (Tylenol Tab) 650 mg Q4H PRN PO 04/07/17 15:30 05/07/17 15:29 Al Hydrox/Mg Hydrox/Simethicone (Maalox Max Susp) 15 ml Q4H PRN PO 04/07/17 15:30 05/07/17 15:29 Magnesium Hydroxide (Milk Of Magnesia Susp) 30 ml Q12H PRN PO 04/07/17 15:30 05/07/17 15:29 Ondansetron HCl (Zofran Inj) 4 mg Q6H PRN IV 04/07/17 15:30 05/07/17 15:29 Morphine Sulfate (MoRPHine SULFATE INJ) 2 mg Q30M PRN IV 04/07/17 15:30 04/21/17 15:29 Polyethylene (Miralax Powder Packet) 17 gm DAILY PRN PO 04/07/17 15:30 05/07/17 15:29 Apixaban (Eliquis Tab) 2.5 mg BID PO 04/07/17 21:00 05/07/17 20:59 04/07/17 19:54 2.5 MG Aspirin (Ecotrin Tab) 81 mg QAM PO 04/08/17 09:00 05/08/17 08:59 Calcium/Vitamin D (Caltrate Plus Tab) 2 tab BID PO 04/07/17 21:00 05/07/17 20:59 04/07/17 19:56 2 TAB Carvedilol (Coreg Tab) 12.5 mg BID PO 04/07/17 21:00 05/07/17 20:59 04/07/17 19:56 12.5 MG Gabapentin (Neurontin Cap) 400 mg BID PO 04/07/17 21:00 05/07/17 20:59 04/07/17 19:55 400 MG Ipratropium [place] (Atrovent 0.02% 0.5MG/2.5ML Neb) 1 mg Q6H PRN INH 04/07/17 15:30 05/07/17 15:29 Isosorbide Mononitrate (Imdur Ext Rel Tab) 30 mg QAM PO 04/08/17 09:00 05/08/17 08:59 Lovastatin (Mevacor Tab) 40 mg HS PO 04/07/17 21:00 05/07/17 20:59 04/07/17 19:55 40 MG Nortriptyline HCl (Pamelor Cap) 20 mg HS PO 04/07/17 21:00 05/07/17 20:59 04/07/17 19:54 20 MG Pantoprazole Sodium (Protonix Tab) 40 mg QAM PO 04/08/17 09:00 05/08/17 08:59 Valsartan (Diovan Tab) 40 mg QAM PO 04/08/17 09:00 05/08/17 08:59 Furosemide 20 mg/ Syringe 2 ml @ 4 mls/min Q8H IV 04/07/17 20:00 05/07/17 19:59 04/08/17 04:38 4 MLS/MIN Miscellaneous (Iv Fluids Completed) 1 ea PRN PRN N/A 04/07/17 16:30 04/07/18 16:29 Sodium Chloride 250 ml @ 999 mls/hr Q16M PRN IV 04/08/17 05:45 05/08/17 05:44 Objective Vital Signs Date Time Temp Pulse Resp B/P (MAP) Pulse Ox O2 Delivery O2 Flow Rate FiO2 04/08/17 07:36 36.7 96 18 149/67 (94) 96 3.5 04/08/17 06:43 92 123/78 (93) 04/08/17 06:24 116/82 (93) 04/08/17 05:39 99 124/68 (86) 04/08/17 04:00 95 Nasal Cannula 2.0 04/08/17 03:40 36.5 108 18 108/80 (89) 98 Room Air 04/08/17 01:28 108 124/60 04/08/17 00:29 160 04/08/17 00:27 160 157/95 04/08/17 00:00 95 Nasal Cannula 2.0 04/07/17 23:38 36.7 87 17 130/59 (82) 95 Nasal Cannula 2.0 04/07/17 20:00 96 Nasal Cannula 2.0 04/07/17 19:21 37.4 80 16 175/89 (117) 95 Nasal Cannula 2.0 04/07/17 17:32 177/102 (127) 04/07/17 17:19 184/90 (121) 04/07/17 17:18 94 183/105 (131) 04/07/17 16:49 88 190/123 (145) 04/07/17 16:33 92 202/101 (134) 04/07/17 16:30 36.6 92 22 202/101 98 Nasal Cannula 2.0 04/07/17 15:52 65 20 184/99 98 Nasal Cannula 3.0 04/07/17 14:45 78 20 178/94 98 BiPAP 04/07/17 14:19 81 20 181/83 97 BiPAP 04/07/17 13:39 86 20 193/106 96 BiPAP 04/07/17 13:21 36.7 87 22 185/100 96 BiPAP 04/07/17 12:40 100 BiPAP 04/07/17 12:37 98 04/07/17 12:35 100 BiPAP 04/07/17 12:34 100 CPAP 04/07/17 12:34 37.2 98 20 202/145 99 CPAP 04/07/17 12:29 100 99 28 Physical Exam General Appearance: WD/WN, no apparent distress Eyes: normal inspection, PERRL, EOMI ENT: pharynx normal (moist mucus membranes) Respiratory/Chest: no respiratory distress, no accessory muscle use, + crackles (bilateral bases corse crackles) Cardiovascular: no JVD, no murmur, + irregularly irregular Abdomen: normal bowel sounds, soft, + tenderness (LLQ without rebound or guarding) Extremities: no pedal edema, no calf tenderness, normal capillary refill Neurologic/Psychiatric: no motor/sensory deficits, alert, normal mood/affect, oriented x 3 Laboratory Results 04/07/17 12:45 Red Blood Count 4.79, Mean Corpuscular Volume 84.8, Mean Corpuscular Hemoglobin 27.6, Mean Corpuscular Hemoglobin Concent 32.5, Mean Platelet Volume 10.8, Neutrophils (%) (Auto) 74.6, Lymphocytes (%) (Auto) 21.9, Monocytes (%) (Auto) 2.7, Eosinophils (%) (Auto) 0.4, Basophils (%) (Auto) 0.2, Neutrophils # (Auto) 6.81, Lymphocytes # (Auto) 2.00, Monocytes # (Auto) 0.25, Eosinophils # (Auto) 0.04, Basophils # (Auto) 0.02 04/08/17 05:05 Test 04/07/17 12:45 04/07/17 12:55 04/07/17 12:56 04/07/17 13:15 White Blood Count 9.14 K/uL (4.8-10.8) Red Blood Count 4.79 M/uL (4.2-5.4) Hemoglobin 13.2 g/dL (12.0-16.0) Hematocrit 40.6 % (37-47) Mean Corpuscular Volume 84.8 fL (80-100) Mean Corpuscular Hemoglobin 27.6 pg (25-34) Mean Corpuscular Hemoglobin Concent 32.5 g/dl (32-36) Platelet Count 183 K/uL (130-400) Mean Platelet Volume 10.8 fL (7.4-10.4) Neutrophils (%) (Auto) 74.6 % Lymphocytes (%) (Auto) 21.9 % Monocytes (%) (Auto) 2.7 % Eosinophils (%) (Auto) 0.4 % Basophils (%) (Auto) 0.2 % Neutrophils # (Auto) 6.81 K/uL (1.4-6.5) Lymphocytes # (Auto) 2.00 K/uL (1.2-3.4) Monocytes # (Auto) 0.25 K/uL (0.11-0.59) Eosinophils # (Auto) 0.04 K/uL (0-0.5) Basophils # (Auto) 0.02 K/uL (0-0.2) RDW Standard Deviation 50.9 fL (36.4-46.3) RDW Coefficient of Variation 16.5 % (11.5-14.5) Immature Granulocyte % (Auto) 0.2 % Immature Granulocyte # (Auto) 0.02 K/uL (0.00-0.02) Total Bilirubin 0.7 mg/dl (0.2-1) Aspartate Amino Transf (AST/SGOT) 27 U/L (15-37) Alanine Aminotransferase (ALT/SGPT) 17 U/L (12-78) Alkaline Phosphatase 101 U/L (45-117) Pro-B-Type Natriuretic Peptide 45889 pg/ml (0-1800) Total Protein 8.5 gm/dl (6.4-8.2) Albumin 4.0 gm/dl (3.4-5.0) Globulin 4.5 gm/dl (2.5-4.0) Albumin/Globulin Ratio 0.9 (0.9-2) Chemistry Specimen Hemolysis Venous Blood pH 7.38 (7.36-7.41) Venous Blood Partial Pressure CO2 49 mmHg (38.0-50.0) Venous Blood Partial Pressure O2 41 mmHg Venous Blood HCO3 28 mmol/L Venous Blood Oxygen Saturation 72.8 % Venous Blood Base Excess 2.1 mEq/L Bedside Lactic Acid Venous 1.27 mmol/L (0.90-1.70) Urine Color YELLOW Urine Appearance CLEAR (CLEAR) Urine pH 7.5 (4.5-7.5) Urine Specific [place] 1.017 (1.000-1.030) Urine Protein 2+ (NEG) Urine Glucose (UA) NEG (NEG) Urine Ketones NEG (NEG) Urine Occult Blood NEG (NEG) Urine Nitrite NEG (NEG) Urine Bilirubin NEG (NEG) Urine Urobilinogen NEG (NEG) Urine Leukocyte Esterase TRACE (NEG) Urine WBC (Auto) 1-5 /hpf (0-5) Urine RBC (Auto) 0-4 /hpf (0-4) Urine Hyaline Casts (Auto) 1-5 /lpf (0-5) Urine Epithelial Cells (Auto) >30 /lpf (0-5) Urine Bacteria (Auto) NEG (NEG) Test 04/07/17 13:27 04/08/17 05:05 Prothrombin Time 10.8 SECONDS (9.0-12.0) Prothromb Time International Ratio 1.0 (0.9-1.1) Activated Partial Thromboplast Time 27.8 SECONDS (21.0-31.0) Partial Thromboplastin Ratio 1.1 Anion Gap 9.0 mmol/L (3-11) Est Creatinine Clear Calc Drug Dose 24.8 ml/min Estimated GFR () 42.8 Estimated GFR (Non- 37.0 BUN/Creatinine Ratio 14.5 (10-20) Calcium Level 9.1 mg/dl (8.5-10.1) Magnesium Level 1.9 mg/dl (1.8-2.4) Troponin I 0.047 ng/ml (0-0.045) Assessment and Plan 82 y/o female with CAD, pAF, heart block - pacer, subdural hematoma, PAD, CKD III, Combined CHF presents with shortness of breath and respiratory distress. The pt required BiPAP on arrival to the ER. She improved following 60 mg IV Lasix and is tolerating a NC at the time of admission. 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 Will review later to consider increased BB vs. diltiazem (given concurrent heart failure) CKD III - creat is at baseline CAD - cont B mike, Imdur, Statin Electrolytes - replace potassium aim > 4 - Mg aim > 2 VTE Prophylaxis - continue apixaban Code - Full Disposition - continue on telemetry as trending HR will determine treatment Resident Physician Supervision Note: I interviewed and examined the patient. Discussed with Dr. Ruiz and agree with findings and plan as documented in the note. Any exceptions or clarifications are listed here: None Documented By: Latrell Olvera feeling better breathing better HR improving tobias noted nad breathing unlabored but has some base rales acute on chronic mixed CHF likely related to afib RVR -rate control improved -diurese -supportive care Resident Tracking Resident Involvement: Resident Care Provided Care Provided: Adult Hospital Medicine
--- NOTE | 2017-04-08 09:37 | DIAGNOSTIC IMAGING REPORT ---
CT OF THE ABDOMEN AND PELVIS WITHOUT CONTRAST CLINICAL HISTORY: Left lower quadrant abdominal pain. Possible diverticulitis. COMPARISON STUDY: CT of the abdomen and pelvis March 20, 2017. TECHNIQUE: Axial images of the abdomen and pelvis were obtained without IV contrast. Images were reviewed in the axial, sagittal, and coronal planes. A dose lowering technique was utilized adhering to the principles of ALARA. FINDINGS: Visualized portions of the lower chest demonstrate hyperdense material likely reflecting barium within the right mainstem bronchus. This nearly completely fills the bronchus. Small to moderate right and small left pleural effusions are noted. These have increased since prior exam. There is extensive coronary artery calcification. Pacer leads are partially imaged. No pneumatosis, free air or portal venous gas is present. Evaluation of the abdomen and pelvis is suboptimal on this unenhanced exam. There is no biliary ductal dilatation status post cholecystectomy. Unenhanced images of the spleen, adrenal glands and pancreas are unremarkable. There is no peripancreatic infiltration. Liver surface is slightly nodular. No hepatic lesions are identified on this unenhanced exam. There is no evidence for a bowel obstruction. There is extensive sigmoid diverticulosis without evidence for acute diverticulitis. The images of the pelvis are degraded by streak artifact from a right hip arthroplasty and cannulated screws within the proximal left femur. 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 No suspicious osseous lesions are noted. A subacute L1 compression fracture with minimal retropulsion is similar to exam of March 20, 2017. There is extensive plaque of the abdominal aorta without aneurysmal dilatation. Fat-containing right inguinal hernia is noted. There is no lymphadenopathy. Moderate bilateral renal cortical thinning is noted with atrophy. There is no hydronephrosis. IMPRESSION: 1. No acute process within the abdomen or pelvis on unenhanced exam. 2. Sigmoid diverticulosis without evidence for acute diverticulitis. 3. Increase in small to moderate right and small left pleural effusions. Associated lower lung opacities favor atelectasis. 4. Hyperdense material likely reflecting aspirated barium which nearly fills the right mainstem bronchus. 5. Subacute L1 compression fracture with minimal retropulsion which is similar to prior CT. 6. 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 Electronically signed by: Sonido Issa M.D. 04/08/2017 9:36 AM Dictated Date/Time: 04/08/2017 9:25 AM
[2017-04-08] MEDS ORDERED: CARVEDILOL 12.5 MG TAB PO ONE (11:15)
[2017-04-08] MEDS ORDERED: DIGOXIN 0.125 MG TAB PO ONE (17:00)
--- NOTE | 2017-04-08 18:16 | DIAGNOSTIC IMAGING REPORT ---
(CHEST) THORAX WITHOUT CLINICAL HISTORY: Abnormal CT scan with possible right mainstem bronchus obstruction by hyperdense material COMPARISON STUDY: 02/07/2017, abdominal CT scan performed April 08, 2017 CT DOSE: 343.93 mGy.cm TECHNIQUE: CT of the thorax was performed from the thoracic inlet to the lung bases. Images are reviewed in the axial, sagittal, and coronal planes. IV contrast was not administered for this examination. A dose lowering technique was utilized adhering to the principles of ALARA. FINDINGS: Thyroid: There is a 17 mm left lobe thyroid nodule. Thoracic aorta: The thoracic aorta is normal in course and caliber, noting standard 3 vessel arch anatomy. Heart: The heart is mildly enlarged. There are coronary artery calcifications present. Lungs and pleural spaces: There are small moderate bilateral pleural effusions right greater than left. There is pulmonary emphysema. There is mild interstitial septal thickening. There are dependent compressive atelectatic changes. There are no airspace opacities to indicate pneumonia. The previously visualized hyperdense lesion in the region of the right mainstem bronchus is no longer identified. Mild tracheomalacia is suspected. Mediastinum: There is a stable enlarged 12 mm precarinal lymph node. [place]: There is no evidence of pathologic hilar adenopathy given the limitations of a noncontrast study Axilla: There is no evidence of pathologic axillary lymphadenopathy Upper abdomen: Partially visualized upper abdominal viscera is within normal limits. Skeletal structures: There is a subacute L1 compression deformity. IMPRESSION: 1. The recently described hyperdense material within the right mainstem bronchus, is not visualized on this CT scan of the chest 2. Small to moderate bilateral pleural effusions 3. Stable mediastinal lymphadenopathy 4. Minimal septal edema Electronically signed by: Lawson Troncoso M.D. 04/08/2017 6:15 PM Dictated Date/Time: 04/08/2017 6:07 PM
[2017-04-08] MEDS ORDERED: CARVEDILOL 25 MG TAB PO SCH (21:00)
[2017-04-08] MEDS: LOVASTATIN 20 MG TAB PO SCH (21:34)
[2017-04-08] MEDS: NORTRIPTYLINE HCL 10 MG CAP PO SCH (21:37)
[2017-04-09] VITALS (10 sets, daily range): BP systolic 126–176; BP diastolic 61–98; PULSE 65–78; TEMP 36.4–36.9; O2SAT 90–100
[2017-04-09] MEDS: FUROSEMIDE INJ 20 MG in SYRINGE 0 ML IV SCH (04:31)
[2017-04-09 06:05] LABS: BASO % 0.3 %; BASO ABS # 0.03 K/uL (0-0.2); EOS % 3.7 %; EOS ABS # 0.34 K/uL (0-0.5); HEMATOCRIT 37.2 % (37-47); IG# 0.02 K/uL (0.00-0.02); LYMPH ABS # 2.83 K/uL (1.2-3.4); MEAN CELL VOLUME 84.7 fL (80-100); MEAN CORPUSCULAR HEMOGLOBIN 27.3 pg (25-34); MEAN CORPUSCULAR HGB CONC 32.3 g/dl (32-36); MEAN PLATELET VOLUME 10.3 fL (7.4-10.4); MONO % 6.4 %; MONO ABS # 0.58 K/uL (0.11-0.59); NEUT % 58.4 %; NEUT ABS # 5.33 K/uL (1.4-6.5); PLATELET COUNT 162 K/uL (130-400); RED CELL DISTRIBUTION WIDTH CV 16.1 % (11.5-14.5); RED CELL DISTRIBUTION WIDTH SD 50.2 fL (36.4-46.3); WHITE BLOOD COUNT 9.13 K/uL (4.8-10.8)
[2017-04-09 06:38] LABS: CALCIUM 9.3 mg/dl (8.5-10.1); CREATININE 1.38 mg/dl (0.60-1.20); POTASSIUM 3.5 mmol/L (3.5-5.1)
[2017-04-09] MEDS ORDERED: POTASSIUM CHLORIDE 20 MEQ TABCR PO ONE (08:00)
[2017-04-09] MEDS: FUROSEMIDE INJ 40 MG in SYRINGE 0 ML IV SCH (08:39)
[2017-04-09] MEDS: PANTOprazole SOD 40 MG TAB PO SCH (08:39)
[2017-04-09] MEDS: CALCIUM 600MG + VIT D 400 IU TAB PO SCH ×2 (08:40→20:14)
[2017-04-09] MEDS: MAGNESIUM OXIDE 400 MG TAB PO SCH ×2 (08:40→20:14)
[2017-04-09] MEDS: CARVEDILOL 12.5 MG TAB PO SCH ×2 (08:40→20:14)
[2017-04-09] MEDS: ASPIRIN 81 MG ECTAB PO SCH (08:41)
[2017-04-09] MEDS: GABAPENTIN 400 MG CAP PO SCH ×2 (08:41→20:13)
[2017-04-09] MEDS: APIXABAN 2.5 MG TAB PO SCH ×2 (08:41→20:15)
[2017-04-09] MEDS: VALSARTAN 80 MG TAB PO SCH (08:42)
[2017-04-09] MEDS: ISOSORBIDE MONONITRATE 30 MG TABCR PO SCH (08:42)
--- NOTE | 2017-04-09 09:15 | Family Medicine Progress Note ---
Progress Note Date of Service Apr 09, 2017. Subjective Pt evaluation today including: conversation w/ patient, physical exam, chart review, lab review, review of studies, review of inpatient medication list Voiding: genao catheter in place Feels well. Asking to go home. All Other Systems: Reviewed and Negative Medications Current Inpatient Medications Medications (Trade) Dose Ordered Sig/[place] Route Start Time Stop Time Status Last Admin Dose Admin Acetaminophen (Tylenol Tab) 650 mg Q4H PRN PO 04/07/17 15:30 05/07/17 15:29 Al Hydrox/Mg Hydrox/Simethicone (Maalox Max Susp) 15 ml Q4H PRN PO 04/07/17 15:30 05/07/17 15:29 Magnesium Hydroxide (Milk Of Magnesia Susp) 30 ml Q12H PRN PO 04/07/17 15:30 05/07/17 15:29 Ondansetron HCl (Zofran Inj) 4 mg Q6H PRN IV 04/07/17 15:30 05/07/17 15:29 Polyethylene (Miralax Powder Packet) 17 gm DAILY PRN PO 04/07/17 15:30 05/07/17 15:29 Apixaban (Eliquis Tab) 2.5 mg BID PO 04/07/17 21:00 05/07/17 20:59 04/09/17 08:41 2.5 MG Aspirin (Ecotrin Tab) 81 mg QAM PO 04/08/17 09:00 05/08/17 08:59 04/09/17 08:41 81 MG Calcium/Vitamin D (Caltrate Plus Tab) 2 tab BID PO 04/07/17 21:00 05/07/17 20:59 04/09/17 08:40 2 TAB Gabapentin (Neurontin Cap) 400 mg BID PO 04/07/17 21:00 05/07/17 20:59 04/09/17 08:41 400 MG Ipratropium [place] (Atrovent 0.02% 0.5MG/2.5ML Neb) 1 mg Q6H PRN INH 04/07/17 15:30 05/07/17 15:29 04/08/17 10:00 1 MG Isosorbide Mononitrate (Imdur Ext Rel Tab) 30 mg QAM PO 04/08/17 09:00 05/08/17 08:59 04/09/17 08:42 30 MG Lovastatin (Mevacor Tab) 40 mg HS PO 04/07/17 21:00 05/07/17 20:59 04/08/17 21:34 40 MG Nortriptyline HCl (Pamelor Cap) 20 mg HS PO 04/07/17 21:00 05/07/17 20:59 04/08/17 21:37 20 MG Pantoprazole Sodium (Protonix Tab) 40 mg QAM PO 04/08/17 09:00 05/08/17 08:59 04/09/17 08:39 40 MG Valsartan (Diovan Tab) 40 mg QAM PO 04/08/17 09:00 05/08/17 08:59 04/09/17 08:42 40 MG Miscellaneous (Iv Fluids Completed) 1 ea PRN PRN N/A 04/07/17 16:30 04/07/18 16:29 Sodium Chloride 250 ml @ 999 mls/hr Q16M PRN IV 04/08/17 05:45 05/08/17 05:44 Carvedilol (Coreg Tab) 12.5 mg BID PO 04/08/17 21:00 05/07/17 20:59 04/09/17 08:40 12.5 MG Digoxin (Lanoxin Tab) 0.125 mg DAILY@16 PO 04/09/17 16:00 05/09/17 15:59 Furosemide 40 mg/ Syringe 4 ml @ 4 mls/min QAM IV 04/09/17 09:00 05/09/17 08:59 04/09/17 08:39 4 MLS/MIN Magnesium Oxide (Mag-Ox Tab) 400 mg BID PO 04/09/17 09:00 05/09/17 08:59 04/09/17 08:40 400 MG Potassium Chloride (Klor-Con Tab) 20 meq QAM PO 04/09/17 12:00 05/09/17 11:59 Objective Vital Signs Date Time Temp Pulse Resp B/P (MAP) Pulse Ox O2 Delivery O2 Flow Rate FiO2 04/09/17 07:31 36.6 75 18 176/98 (124) 99 3.0 04/09/17 05:07 36.7 94 Nasal Cannula 2.0 04/09/17 04:38 78 138/72 (94) 04/09/17 04:00 93 Nasal Cannula 3.0 04/09/17 00:00 94 Nasal Cannula 04/08/17 23:59 36.7 78 20 107/50 (69) 94 Nasal Cannula 3.0 04/08/17 21:35 126/48 (74) 04/08/17 20:00 98 Nasal Cannula 04/08/17 18:51 36.7 71 20 121/73 (89) 98 Nasal Cannula 4.0 04/08/17 16:46 75 04/08/17 16:35 97 Nasal Cannula 3.0 04/08/17 16:00 Nasal Cannula 3.0 04/08/17 15:11 36.6 73 22 93/55 (68) 97 Nasal Cannula 4.0 04/08/17 12:00 Nasal Cannula 4.0 04/08/17 11:36 37.1 86 20 106/60 (75) 98 5.0 04/08/17 10:02 100 94 Nasal Cannula 5.0 Physical Exam General Appearance: WD/WN, no apparent distress Eyes: normal inspection ENT: pharynx normal (moist mucus membranes) Respiratory/Chest: no respiratory distress, no accessory muscle use, + crackles (up to mid zone of back) Cardiovascular: regular rate, rhythm, no murmur Abdomen: normal bowel sounds, non tender, soft Extremities: no pedal edema, no calf tenderness Neurologic/Psychiatric: alert, oriented x 3 Laboratory Results 04/09/17 05:50 Red Blood Count 4.39, Mean Corpuscular Volume 84.7, Mean Corpuscular Hemoglobin 27.3, Mean Corpuscular Hemoglobin Concent 32.3, Mean Platelet Volume 10.3, Neutrophils (%) (Auto) 58.4, Lymphocytes (%) (Auto) 31.0, Monocytes (%) (Auto) 6.4, Eosinophils (%) (Auto) 3.7, Basophils (%) (Auto) 0.3, Neutrophils # (Auto) 5.33, Lymphocytes # (Auto) 2.83, Monocytes # (Auto) 0.58, Eosinophils # (Auto) 0.34, Basophils # (Auto) 0.03 04/09/17 05:50 Test 04/09/17 05:50 White Blood Count 9.13 K/uL (4.8-10.8) Red Blood Count 4.39 M/uL (4.2-5.4) Hemoglobin 12.0 g/dL (12.0-16.0) Hematocrit 37.2 % (37-47) Mean Corpuscular Volume 84.7 fL (80-100) Mean Corpuscular Hemoglobin 27.3 pg (25-34) Mean Corpuscular Hemoglobin Concent 32.3 g/dl (32-36) Platelet Count 162 K/uL (130-400) Mean Platelet Volume 10.3 fL (7.4-10.4) Neutrophils (%) (Auto) 58.4 % Lymphocytes (%) (Auto) 31.0 % Monocytes (%) (Auto) 6.4 % Eosinophils (%) (Auto) 3.7 % Basophils (%) (Auto) 0.3 % Neutrophils # (Auto) 5.33 K/uL (1.4-6.5) Lymphocytes # (Auto) 2.83 K/uL (1.2-3.4) Monocytes # (Auto) 0.58 K/uL (0.11-0.59) Eosinophils # (Auto) 0.34 K/uL (0-0.5) Basophils # (Auto) 0.03 K/uL (0-0.2) RDW Standard Deviation 50.2 fL (36.4-46.3) RDW Coefficient of Variation 16.1 % (11.5-14.5) Immature Granulocyte % (Auto) 0.2 % Immature Granulocyte # (Auto) 0.02 K/uL (0.00-0.02) Anion Gap 7.0 mmol/L (3-11) Est Creatinine Clear Calc Drug Dose 23.6 ml/min Estimated GFR () 40.6 Estimated GFR (Non- 35.0 BUN/Creatinine Ratio 16.7 (10-20) Calcium Level 9.3 mg/dl (8.5-10.1) Magnesium Level 1.7 mg/dl (1.8-2.4) Assessment and Plan 82 y/o female with CAD, pAF, heart block - pacer, subdural hematoma, PAD, CKD III, Combined CHF presents with shortness of breath and respiratory distress. The pt required BiPAP on arrival to the ER. She improved following 60 mg IV Lasix and is tolerating a NC at the time of admission. 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 - improving with diuresis despite a fib with RVR last night, last echo LVEF in Mar 45-50% - Switch to 40 mg IV lasix, - Last 24 hours: I&Os +ve 275 ml; weight -ve 1.4 kg - Remove genao today - minimal troponin elevation likely demand, likely went into heart failure due to RVR rather than new ischemic event Paroxysmal atrial fibrillation - under Dr Breaux, sinus rhythm on arrival, a fib with RVR overnight - Cont carvedilol and Apixaban - increased carvedilol during atrial fibrillation episode but caused hypotension after she converted, therefore started on digoxin (not loaded) - follow up with cardiology as outpatient (under Dr Breaux) 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 Aim home/rehab in next 1-2 days. Resident Physician Supervision Note: I interviewed and examined the patient. Discussed with Dr. Ruiz and agree with findings and plan as documented in the note. Any exceptions or clarifications are listed here: None Documented By: Latrell Olvera feels better wonders when she can go home, breathing better overall vitals noted nad breathing unlabored but has some base rales more clear than yesterday acute on chronic mixed CHF likely related to afib RVR -rate controlled -diurese ongoing -supportive care -wean O2 as possible, PT/OT input Resident Tracking Resident Involvement: Resident Care Provided Care Provided: Adult Hospital Medicine
[2017-04-09] MEDS: POTASSIUM CHLORIDE 20 MEQ TABCR PO SCH (11:11)
[2017-04-09] MEDS: DIGOXIN 0.125 MG TAB PO SCH (15:31)
[2017-04-09] MEDS: LOVASTATIN 20 MG TAB PO SCH (20:13)
[2017-04-09] MEDS: NORTRIPTYLINE HCL 10 MG CAP PO SCH (20:13)
[2017-04-10] VITALS (10 sets, daily range): BP systolic 112–150; BP diastolic 52–74; PULSE 68–77; TEMP 36.5–36.9; O2SAT 90–98
[2017-04-10 08:12] LABS: CALCIUM 9.4 mg/dl (8.5-10.1); CREATININE 1.34 mg/dl (0.60-1.20); POTASSIUM 3.8 mmol/L (3.5-5.1)
[2017-04-10] MEDS: FUROSEMIDE INJ 40 MG in SYRINGE 0 ML IV SCH (08:46)
[2017-04-10] MEDS: CALCIUM 600MG + VIT D 400 IU TAB PO SCH ×2 (08:47→20:11)
[2017-04-10] MEDS: MAGNESIUM OXIDE 400 MG TAB PO SCH ×2 (08:47→20:10)
[2017-04-10] MEDS: CARVEDILOL 12.5 MG TAB PO SCH ×2 (08:47→20:10)
[2017-04-10] MEDS: GABAPENTIN 400 MG CAP PO SCH ×2 (08:47→20:12)
[2017-04-10] MEDS: PANTOprazole SOD 40 MG TAB PO SCH (08:47)
[2017-04-10] MEDS: ISOSORBIDE MONONITRATE 30 MG TABCR PO SCH (08:47)
[2017-04-10] MEDS: APIXABAN 2.5 MG TAB PO SCH ×2 (08:48→20:11)
[2017-04-10] MEDS: VALSARTAN 80 MG TAB PO SCH (08:48)
[2017-04-10] MEDS: POTASSIUM CHLORIDE 20 MEQ TABCR PO SCH ×2 (08:48→15:19)
[2017-04-10] MEDS: ASPIRIN 81 MG ECTAB PO SCH (08:48)
[2017-04-10] MEDS: DIGOXIN 0.125 MG TAB PO SCH (15:19)
--- NOTE | 2017-04-10 15:21 | Family Medicine Progress Note ---
Progress Note Date of Service Apr 10, 2017. Subjective Pt evaluation today including: conversation w/ patient, physical exam, chart review, lab review, review of inpatient medication list Pain: No pain reported PO Intake: Tolerating PO intake Voiding: no voiding problems Ms. Vasquez reports she feels well today. She dneies chest pain, shortness of breath, fever, chills, n/v or abdominal pain. She is keen for discharge. Constitutional: No fever, No chills Respiratory: No cough, No sputum, No wheezing, No shortness of breath Cardiovascular: No chest pain Abdomen: No pain, No nausea, No vomiting All Other Systems: Reviewed and Negative Medications Current Inpatient Medications Medications (Trade) Dose Ordered Sig/Channing Route Start Time Stop Time Status Last Admin Dose Admin Acetaminophen (Tylenol Tab) 650 mg Q4H PRN PO 04/07/17 15:30 05/07/17 15:29 Al Hydrox/Mg Hydrox/Simethicone (Maalox Max Susp) 15 ml Q4H PRN PO 04/07/17 15:30 05/07/17 15:29 Magnesium Hydroxide (Milk Of Magnesia Susp) 30 ml Q12H PRN PO 04/07/17 15:30 05/07/17 15:29 Ondansetron HCl (Zofran Inj) 4 mg Q6H PRN IV 04/07/17 15:30 05/07/17 15:29 Polyethylene (Miralax Powder Packet) 17 gm DAILY PRN PO 04/07/17 15:30 05/07/17 15:29 Apixaban (Eliquis Tab) 2.5 mg BID PO 04/07/17 21:00 05/07/17 20:59 04/10/17 08:48 2.5 MG Aspirin (Ecotrin Tab) 81 mg QAM PO 04/08/17 09:00 05/08/17 08:59 04/10/17 08:48 81 MG Calcium/Vitamin D (Caltrate Plus Tab) 2 tab BID PO 04/07/17 21:00 05/07/17 20:59 04/10/17 08:47 2 TAB Gabapentin (Neurontin Cap) 400 mg BID PO 04/07/17 21:00 05/07/17 20:59 04/10/17 08:47 400 MG Ipratropium [place] (Atrovent 0.02% 0.5MG/2.5ML Neb) 1 mg Q6H PRN INH 04/07/17 15:30 05/07/17 15:29 04/08/17 10:00 1 MG Isosorbide Mononitrate (Imdur Ext Rel Tab) 30 mg QAM PO 04/08/17 09:00 05/08/17 08:59 04/10/17 08:47 30 MG Lovastatin (Mevacor Tab) 40 mg HS PO 04/07/17 21:00 05/07/17 20:59 04/09/17 20:13 40 MG Nortriptyline HCl (Pamelor Cap) 20 mg HS PO 04/07/17 21:00 05/07/17 20:59 04/09/17 20:13 20 MG Pantoprazole Sodium (Protonix Tab) 40 mg QAM PO 04/08/17 09:00 05/08/17 08:59 04/10/17 08:47 40 MG Valsartan (Diovan Tab) 40 mg QAM PO 04/08/17 09:00 05/08/17 08:59 04/10/17 08:48 40 MG Miscellaneous (Iv Fluids Completed) 1 ea PRN PRN N/A 04/07/17 16:30 04/07/18 16:29 Carvedilol (Coreg Tab) 12.5 mg BID PO 04/08/17 21:00 05/07/17 20:59 04/10/17 08:47 12.5 MG Digoxin (Lanoxin Tab) 0.125 mg DAILY@16 PO 04/09/17 16:00 05/09/17 15:59 04/09/17 15:31 0.125 MG Magnesium Oxide (Mag-Ox Tab) 400 mg BID PO 04/09/17 09:00 05/09/17 08:59 04/10/17 08:47 400 MG Potassium Chloride (Klor-Con Tab) 20 meq QAM PO 04/09/17 12:00 05/09/17 11:59 04/10/17 08:48 20 MEQ Furosemide (Lasix Tab) 20 mg QAM PO 04/11/17 09:00 05/11/17 08:59 Magnesium Sulfate 1 gm/Prmx 100 ml @ 100 mls/hr ONE ONCE IV 04/10/17 15:30 04/10/17 16:29 Objective Vital Signs Date Time Temp Pulse Resp B/P (MAP) Pulse Ox O2 Delivery O2 Flow Rate FiO2 04/10/17 12:14 36.6 68 16 112/56 (74) 90 Room Air 04/10/17 12:00 93 Room Air 04/10/17 08:15 36.8 76 16 140/66 (90) 92 Nasal Cannula 2.0 04/10/17 08:00 92 Room Air 04/10/17 04:00 95 Nasal Cannula 2.0 04/10/17 04:00 36.5 69 17 136/60 (85) 95 Nasal Cannula 2.0 04/10/17 00:00 98 Nasal Cannula 2.0 04/09/17 23:38 36.4 69 16 152/64 (93) 98 Nasal Cannula 2.0 04/09/17 20:00 90 Room Air 04/09/17 18:53 36.9 69 20 126/61 (82) 90 Room Air 04/09/17 16:00 Nasal Cannula 3.0 04/09/17 15:31 65 Physical Exam General Appearance: WD/WN, no apparent distress Respiratory/Chest: chest non-tender, lungs clear, + decreased breath sounds Cardiovascular: regular rate, rhythm, no edema, no gallop, no JVD Abdomen: non tender, soft Laboratory Results Last 24 Hours Test 04/10/17 07:23 Sodium Level 137 mmol/L Potassium Level 3.8 mmol/L Chloride Level 98 mmol/L Carbon Dioxide Level 32 mmol/L Anion Gap 7.0 mmol/L Blood Urea Nitrogen 23 mg/dl Creatinine 1.34 mg/dl Est Creatinine Clear Calc Drug Dose 22.4 ml/min Estimated GFR () 42.1 Estimated GFR (Non- 36.3 BUN/Creatinine Ratio 17.2 Random Glucose 143 mg/dl Calcium Level 9.4 mg/dl Magnesium Level 1.8 mg/dl Assessment and Plan Ms. Vasquez is an 82 year old female with CAD, pAF, heart block - pacer, subdural hematoma, PAD, CKD III, Combined CHF who was admitted for shortness of breath and respiratory distress. The pt required BiPAP on arrival to the ER. She improved following 60 mg IV Lasix and is tolerating a NC at the time of admission. 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 - last echo LVEF in Mar 45-50% - Change 40mg IV Lasix to 20mg PO Lasix - total output -2.1L, down 2.2kg - minimal troponin elevation likely supply demand mismatch, likely went into heart failure due to RVR rather than new ischemic event - pt weaned off oxygen and passed 2 step -> will do overnight pulse oximetry as she tends to desat overnight and will need home O2 at nighttime Paroxysmal atrial fibrillation - follows with Dr Breaux - remains in sinus rhythm - HR been 60-80s - Cont carvedilol and Apixaban - continue 12.5mg BID of carvedilol and 0.125mg of digoxin (increased carvedilol during atrial fibrillation episode but caused hypotension after she converted, therefore started on digoxin) - follow up with cardiology as outpatient 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 I discussed the case with the resident and agree with the findings and plan as documented in the note. Patient was ambulatory in the hallway when walking holding onto a wheelchair; she tells me at home she has a walker on each of her house and a stair lift to get between floors. Physical therapy consultation is pending; awaiting their recommendations regarding home safety. We'll check overnight pulse oximetry test this evening to see if she would be a candidate at benefit from nocturnal oxygen. Documented By: George Soni Resident Tracking Resident Involvement: Resident Care Provided Care Provided: Adult Hospital Medicine
[2017-04-10] MEDS ORDERED: MAGNESIUM SULFATE 1GM / D5W 1 GM in PREMIXED IN D5W 100 ML IV ONE (15:30)
[2017-04-10] MEDS: LOVASTATIN 20 MG TAB PO SCH (20:11)
[2017-04-10] MEDS: NORTRIPTYLINE HCL 10 MG CAP PO SCH (20:12)
[2017-04-11 04:00] VITALS: BP 132/80; PULSE 72; TEMP 36.9; O2SAT 95
[2017-04-11 06:50] LABS: CREATININE 1.35 mg/dl (0.60-1.20); POTASSIUM 4.1 mmol/L (3.5-5.1)
[2017-04-11] MEDS: CARVEDILOL 12.5 MG TAB PO SCH (07:39)
[2017-04-11] MEDS: PANTOprazole SOD 40 MG TAB PO SCH (07:40)
[2017-04-11] MEDS: MAGNESIUM OXIDE 400 MG TAB PO SCH (07:40)
[2017-04-11] MEDS: POTASSIUM CHLORIDE 20 MEQ TABCR PO SCH (07:40)
[2017-04-11] MEDS: APIXABAN 2.5 MG TAB PO SCH (07:41)
[2017-04-11] MEDS: CALCIUM 600MG + VIT D 400 IU TAB PO SCH (07:41)
[2017-04-11] MEDS: ASPIRIN 81 MG ECTAB PO SCH (07:41)
[2017-04-11] MEDS: ISOSORBIDE MONONITRATE 30 MG TABCR PO SCH (07:41)
[2017-04-11] MEDS: VALSARTAN 80 MG TAB PO SCH (07:42)
[2017-04-11] MEDS: GABAPENTIN 400 MG CAP PO SCH (07:48)
[2017-04-11 08:00] VITALS: O2SAT 94
[2017-04-11 08:19] VITALS: BP 147/75; PULSE 71; TEMP 36.8; O2SAT 100
[2017-04-11] MEDS ORDERED: LNX125 PO ×2 (08:50→09:54)
[2017-04-11] MEDS ORDERED: MCRK20 PO ×3 (08:50→10:25)
[2017-04-11] MEDS ORDERED: LSX20 PO ×2 (08:50→09:54)
[2017-04-11] MEDS ORDERED: FUROSEMIDE 20 MG TAB PO SCH (09:00)
--- NOTE | 2017-04-11 09:48 | Discharge Instructions ---
Discharge Instructions Date of Service Apr 11, 2017. Admission Reason for Admission: Acute Exacerbation Of Chf Discharge Discharge Diagnosis / Problem: Congestive Heart Failure Discharge Goals Goal(s): Improve function, Increase independence, Improve disease control Activity Recommendations Activity Limitations: resume your previous activity . Instructions / Follow-Up Instructions / Follow-Up You came to [facility] due to trouble breathing. This was due to fluid overload in your lungs caused by congestive heart failure. 1) Heart Failure - You were treated with a medication called Lasix, which is also known as a water pill, and helps to decrease the amount of excess fluid in your body. We will be discharging you home on this medication for you to take daily. Please see the instructions below regarding weighing yourself daily, and contacting your doctor if you notice an increase in your weight. 2) Atrial Fibrillation - you had an episode of a fast heart rate while in the hospital. We have added a medication called digoxin to help with this, and you can take that daily. 3) Electrolytes - the lasix can cause low potassium levels, and we are prescribing a potassium supplement for you to take 4) Low oxygen levels at night - you did very well walking without oxygen, however at nights, your oxygen levels did drop a bit, and we recommend you wear oxygen at night while you sleep Call your Primary Care doctor if any of the following symptoms or problems start or get worse: * Shortness of breath or difficulty breathing * Wake up at night short of breath * Chest pain * Cough * Swelling of your hands, feet, or legs * More fatigued or tired with your normal activity * Palpitations - sudden fast heart beats WEIGHT * Weigh yourself every morning after using the bathroom. * Use the same scale. * Wear the same amount of clothing. * Write your weight down on a chart. * Call your Primary Care doctor if you gain more than 2-3 pounds in 1-2 days. MEDICATIONS * Use this discharge instruction sheet for medication instructions. * Take your medications at the time your doctor ordered. * Do not skip a dose of your medicines. * If you miss a dose of medicine, take it as soon as possible, but DO NOT DOUBLE A DOSE. * Read your medicine information when you get home. * Know all of the side effects of your medicine. If in doubt, ask your pharmacist * Call your Primary Care doctor's office if you have any side effects. * Be sure all of your doctors know what medicine and herbs you take (including cold, flu, and herbal medicine). Take the following with you to your follow-up doctor appointments: * Weight Chart * Medication List * List of questions Do not drink excessive alcohol, beer or wine. Current Hospital Diet Patient's current hospital diet: AHA Diet (Heart Healthy) Discharge Diet Recommended Diet: AHA Diet (Heart Healthy) Pending Studies Studies pending at discharge: no Laboratory Results Hemoglobin A1c Test 03/20/17 11:25 Range/Units Estimated Average Glucose 148 mg/dl Hemoglobin A1c 6.8 H 4.5-5.6 % Lipid Panel Test 03/21/17 06:05 Range/Units Triglycerides Level 160 H 0-150 mg/dl Cholesterol Level 159 0-200 mg/dl HDL Cholesterol 36 mg/dl Cholesterol/HDL Ratio 4.4 LDL Cholesterol, Calculated 91 mg/dl Medical Emergencies . Who to Call and When: Call 911 or go to the Emergency Room if: * If at any time you feel your situation is an emergency * You have tightness or pain in your chest that does not go away with rest or Nitroglycerin * You are very short of breath even with rest . Non-Emergent Contact Non-Emergency issues call your: Primary Care Provider . . "Provider Documentation" section prepared by Jenna Ling. . VTE Core Measure Inpt VTE Proph given/why not?: Other Anticoagulation
--- NOTE | 2017-04-11 10:05 | Discharge Summary ---
Discharge Summary Date of Service Apr 11, 2017. Discharge Summary Admission Date: Apr 07, 2017 at 15:25 Discharge Date: Apr 11, 2017 Discharge Disposition: Home with services Principal Diagnosis: Acute Exacberation of CHF (combined systolic and diastolic ) Problems/Secondary Diagnoses: a) Paroxysmal Afib 2) Suspected Avascular Necrosis of Left Femoral Head 3) CKD 3 4) Coronary Artery Disease Immunizations: Have You Had Influenza Vaccine: Yes Influenza Vaccine Date: Nov 08, 2011 History of Tetanus Vaccine?: No History of Pneumococcal: No Pneumococcal Date: Jan 01, 2009 History of Hepatitis B Vaccine: No Procedures: CT OF THE ABDOMEN AND PELVIS WITHOUT CONTRAST CLINICAL HISTORY: Left lower quadrant abdominal pain. Possible diverticulitis. COMPARISON STUDY: CT of the abdomen and pelvis March 20, 2017. TECHNIQUE: Axial images of the abdomen and pelvis were obtained without IV contrast. Images were reviewed in the axial, sagittal, and coronal planes. A dose lowering technique was utilized adhering to the principles of ALARA. FINDINGS: Visualized portions of the lower chest demonstrate hyperdense material likely reflecting barium within the right mainstem bronchus. This nearly completely fills the bronchus. Small to moderate right and small left pleural effusions are noted. These have increased since prior exam. There is extensive coronary artery calcification. Pacer leads are partially imaged. No pneumatosis, free air or portal venous gas is present. Evaluation of the abdomen and pelvis is suboptimal on this unenhanced exam. There is no biliary ductal dilatation status post cholecystectomy. Unenhanced images of the spleen, adrenal glands and pancreas are unremarkable. There is no peripancreatic infiltration. Liver surface is slightly nodular. No hepatic lesions are identified on this unenhanced exam. There is no evidence for a bowel obstruction. There is extensive sigmoid diverticulosis without evidence for acute diverticulitis. The images of the pelvis are degraded by streak artifact from a right hip arthroplasty and cannulated screws within the proximal left femur. 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 No suspicious osseous lesions are noted. A subacute L1 compression fracture with minimal retropulsion is similar to exam of March 20, 2017. There is extensive plaque of the abdominal aorta without aneurysmal dilatation. Fat-containing right inguinal hernia is noted. There is no lymphadenopathy. Moderate bilateral renal cortical thinning is noted with atrophy. There is no hydronephrosis. IMPRESSION: 1. No acute process within the abdomen or pelvis on unenhanced exam. 2. Sigmoid diverticulosis without evidence for acute diverticulitis. 3. Increase in small to moderate right and small left pleural effusions. Associated lower lung opacities favor atelectasis. 4. Hyperdense material likely reflecting aspirated barium which nearly fills the right mainstem bronchus. 5. Subacute L1 compression fracture with minimal retropulsion which is similar to prior CT. 6. 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 CHEST) THORAX WITHOUT CLINICAL HISTORY: Abnormal CT scan with possible right mainstem bronchus obstruction by hyperdense material COMPARISON STUDY: 02/07/2017, abdominal CT scan performed April 08, 2017 CT DOSE: 343.93 mGy.cm TECHNIQUE: CT of the thorax was performed from the thoracic inlet to the lung bases. Images are reviewed in the axial, sagittal, and coronal planes. IV contrast was not administered for this examination. A dose lowering technique was utilized adhering to the principles of ALARA. FINDINGS: Thyroid: There is a 17 mm left lobe thyroid nodule. Thoracic aorta: The thoracic aorta is normal in course and caliber, noting standard 3 vessel arch anatomy. Heart: The heart is mildly enlarged. There are coronary artery calcifications present. Lungs and pleural spaces: There are small moderate bilateral pleural effusions right greater than left. There is pulmonary emphysema. There is mild interstitial septal thickening. There are dependent compressive atelectatic changes. There are no airspace opacities to indicate pneumonia. The previously visualized hyperdense lesion in the region of the right mainstem bronchus is no longer identified. Mild tracheomalacia is suspected. Mediastinum: There is a stable enlarged 12 mm precarinal lymph node. [place]: There is no evidence of pathologic hilar adenopathy given the limitations of a noncontrast study Axilla: There is no evidence of pathologic axillary lymphadenopathy Upper abdomen: Partially visualized upper abdominal viscera is within normal limits. Skeletal structures: There is a subacute L1 compression deformity. IMPRESSION: 1. The recently described hyperdense material within the right mainstem bronchus, is not visualized on this CT scan of the chest 2. Small to moderate bilateral pleural effusions 3. Stable mediastinal lymphadenopathy 4. Minimal septal edema Medication Reconciliation New Medications: Digoxin (Digoxin) 0.125 Mg Tab 0.125 MG PO DAILY@16 for 30 Days, #30 TAB 3 Refills Furosemide (Furosemide) 20 Mg Tab 20 MG PO QAM for 30 Days, #30 TAB 3 Refills Potassium Chloride (Klor-Con M20) 20 Meq Tabcr 20 MEQ PO DAILY for 30 Days, #30 TABS 3 Refills Continued Medications: Apixaban (Eliquis) 2.5 Mg Tab 2.5 MG PO BID Aspirin (Aspirin Ec) 81 Mg Tab 81 MG PO QAM Calcium/Vitamin D (Os-Emile 500 Plus D) Tab 2 TAB PO BID Carvedilol (Carvedilol) 12.5 Mg Tab 12.5 MG PO BID Gabapentin (Gabapentin) 400 Mg Cap 400 MG PO BID Ipratropium [place] (Ipratropium [place]) 0.5 Mg/2.5 Ml Nebu 1 VIAL NEB Q4 PRN for SOB/Wheezing Ipratropium-Albuterol (Combivent Respimat) 1 Aer Aer 1 PUFF INH UD PRN for SOB/Wheezing Isosorbide Mononitrate Ext Rel (Imdur Ext Rel) 30 Mg Tabcr 30 MG PO QAM Lovastatin (Mevacor) 40 Mg Tab 40 MG PO HS Nortriptyline HCl (Nortriptyline HCl) 10 Mg Cap 20 MG PO HS Pantoprazole (Pantoprazole Sodium) 40 Mg Tab 40 MG PO QAM Valsartan (Valsartan) 40 Mg Tab 40 MG PO QAM Discharge Exam Ms. Vasquez reports she feels well today and is eager for discharge. She denies chest pain, SOB, n/v, fever or chills. Review of Systems: Constitutional: No fever, No chills Respiratory: No cough, No sputum, No wheezing Cardiovascular: No chest pain, No edema Abdomen: No pain, No nausea, No vomiting Genitourinary - Female: No dysuria, No hematuria Physical Exam: General Appearance: WD/WN, no apparent distress Respiratory/Chest: normal breath sounds, no respiratory distress, no accessory muscle use, + decreased breath sounds Cardiovascular: regular rate, rhythm, no edema, no gallop Abdomen / GI: non tender, soft Extremities: no calf tenderness, no pedal edema Neurologic/Psychiatric: alert, normal mood/affect Hospital Course Ms. Vasquez is an 82 year old female with CAD, pAF, heart block - pacer, subdural hematoma, PAD, CKD III, Combined CHF who was admitted for shortness of breath and respiratory distress. The pt required BiPAP on arrival to the ER. 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 - last echo LVEF in Mar 45-50% - Initially treated with IV Lasix, changed to daily 20mg PO Lasix on discharge - total output -2.7L, down 2.2kg - minimal troponin elevation likely supply demand mismatch, likely went into heart failure due to RVR rather than new ischemic event - pt weaned off oxygen and passed 2 step, however she tends to desat at night, and therefore it is recommended she wear oxygen at nighttime (she has been on 2L at night here) Paroxysmal atrial fibrillation - follows with Dr Breaux - remains in sinus rhythm - HR been 60-80s - Continue Apixaban - continue 12.5mg BID of carvedilol and 0.125mg of digoxin (increased carvedilol during atrial fibrillation episode but caused hypotension after she converted, therefore started on digoxin) - follow up with cardiology as outpatient 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 She currently lives in a 3 story home with her daughter. She has lifts to all floors and a walker on each floor. She is independent in all her ADLs, and has home health set up. Discussed this with her daughter, Aimee as well as the patient who both would prefer for the patient to return home as opposed to a facility. Resident Physician Supervision Note: I was present with the resident during the history and exam. I discussed the case with the resident and agree with the findings and plan as documented in the note. The patient is seated in chair, alert - no complaints. Lungs clear; CV regular. Overnight pulse oximetry indicates need for 2 lpm via NC. I reviewed new medications (Digoxin, Lasix, and KCL), need for nocturnal oxygen , and follow up labs and appointments. I discussed home nursing with case management (she is already open with an agency and they will be notified of her discharge) Documented By: George Soni Total Time Spent: Greater than 30 minutes This includes examination of the patient, discharge planning, medication reconciliation, and communication with other providers. Total time I personally spent in the discharge of this patient is 40 minutes. Discharge Instructions Please refer to the electronic Patient Visit Report (Discharge Instructions) for additional information. Additional Copies To Crystal Mcguire, Beth.RosannaP; Mike Alfonso.,P.A. Resident Tracking Resident Involvement: Resident Care Provided Care Provided: [facility] Medicine
[2017-04-11 11:22] VITALS: BP 147/75; PULSE 71; TEMP 36.8; O2SAT 100
[2017-04-11 12:00] VITALS: O2SAT 95
[2017-04-11 12:32] VITALS: BP 96/46; PULSE 61; TEMP 36.5; O2SAT 92
== END 2017-04-11 13:00 | disposition home health service (06) ==
LOC: EDBD 12:23 → C.EDB 12:24 → C.2E 15:25 → ENRESERV 15:52
PROVIDERS: ADMIT Internal Medicine; ATTEND Family Medicine
DX: I50.41 Acute combined systolic (congestive) and diastolic (congestive) heart failure (principal); I48.0 Paroxysmal atrial fibrillation; N18.3 Chronic kidney disease, stage 3 (moderate); I25.10 Atherosclerotic heart disease of native coronary artery without angina pectoris; I73.9 Peripheral vascular disease, unspecified; I63.9 Cerebral infarction, unspecified; Z79.01 Long term (current) use of anticoagulants; Z79.82 Long term (current) use of aspirin; Z79.899 Other long term (current) drug therapy; Z95.0 Presence of cardiac pacemaker; Z95.1 Presence of aortocoronary bypass graft; Z95.2 Presence of prosthetic heart valve; Z87.01 Personal history of pneumonia (recurrent); Z87.891 Personal history of nicotine dependence; Z88.0 Allergy status to penicillin; Z88.2 Allergy status to sulfonamides; Z88.6 Allergy status to analgesic agent; Z88.8 Allergy status to other drugs, medicaments and biological substances; Z90.49 Acquired absence of other specified parts of digestive tract; Z90.710 Acquired absence of both cervix and uterus; Z82.49 Family history of ischemic heart disease and other diseases of the circulatory system; R39.9 Unspecified symptoms and signs involving the genitourinary system

== ENCOUNTER → 2017-04-07 | Outpatient (CLI) | payer OTHER ==
[~2017-04-07] MED LIST changes: +CRG125 PO; +LNX125 PO; +LSX20 PO; +MCRK20 PO
== END | disposition home or self-care (01) ==
LOC: C.LABPVFM 17:50
PROVIDERS: ATTEND Family Medicine
DX: R39.9 Unspecified symptoms and signs involving the genitourinary system (principal)

== ENCOUNTER 2017-05-25 11:57 | Inpatient (IN) | payer OTHER ==
[~2017-05-25] VITALS: Ht 152.4 cm; Wt 56.9 kg
[~2017-05-25 11:57] MED LIST changes: -CARV12.52 PO; +CRG125 PO; +LNX125 PO; +LSX20 PO; +MCRK20 PO
[2017-05-25] MEDS ORDERED: ASPIRIN 81 MG CHEW PO STA (12:08)
--- NOTE | 2017-05-25 12:10 | EMERGENCY ROOM VISIT NOTE ---
History Report prepared by Chaim: Malvin Myers Under the Supervision of: Dr. Cayden Duanway M.D. First contact with patient: 12:01 Stated Complaint: RESPIRATORY History of Present Illness The patient is an 82 year old female with a history of CHF and atrial fibrillation, CKD stage 3, and CAD who presents to the Emergency Room via EMS with complaints of persistent shortness of breath that started upon waking this morning. She states that she was not doing anything in particular that caused the breathing difficulties. The patient notes that she wears oxygen only at night. The patient says that she has a mild cough that is not productive and is without any blood. She denies any chest pain, fevers, chills, loss of consciousness, hematochezia, hematuria, or melena. The patient notes that she is not having any pain currently. Per the nursing staff, the patient only received 2 breathing treatments at home earlier this morning, and the patient states that these treatments improved her breathing. The patient is on Eliquis. She states that she has not been given any Aspirin today or any other medications. The patient denies any falls within the past few days. Source of History: patient, nursing staff Onset: Upon waking this morning Position: other (global) Quality: other (shortness of breath) Timing: other (persistent) Associated Symptoms: + cough, No LOC, No fevers, No chills, No chest pain, No melena, No hematochezia, No urinary symptoms Review of Systems See HPI for pertinent positives and negatives. A total of ten systems were reviewed and were otherwise negative. Past Medical & Surgical Medical Problems: (1) AORTOCORONARY BYPASS (2) ATRIAL FIBRILLATION (3) Atrial fibrillation with RVR (4) CHRONIC KIDNEY DISEASE, STAGE III (MODERATE) (5) CHRONIC SYSTOLIC HRT FAILURE (6) CORON ATHEROSCLER NOS TYPE VESSEL, [place] OR GRAFT (7) CVA (8) Elevated troponin (9) Facial droop (10) Implantation of cardiac pacemaker (11) Lower GI bleed (12) PNEUMONIA, ORGANISM NOS (13) Seizure (14) Subdural hematoma Family History Heart disease Social History Smoking Status: Former Smoker Alcohol Use: none Drug Use: none Marital Status: Housing Status: lives alone Occupation Status: retired Current/Historical Medications Scheduled Apixaban (Eliquis), 2.5 MG PO BID Aspirin (Aspirin Ec), 81 MG PO QAM Calcium/Vitamin D (Os-Emile 500 Plus D), 2 TAB PO BID Carvedilol (Carvedilol), 12.5 MG PO BID Digoxin (Digoxin), 0.125 MG PO DAILY@16 Furosemide (Furosemide), 20 MG PO QAM Gabapentin (Gabapentin), 400 MG PO BID Isosorbide Mononitrate Ext Rel (Imdur Ext Rel), 30 MG PO QAM Lovastatin (Mevacor), 40 MG PO HS Nortriptyline HCl (Nortriptyline HCl), 20 MG PO HS Scheduled PRN Ipratropium [place] (Ipratropium [place]), 1 VIAL NEB Q4 PRN for SOB/Wheezing Ipratropium-Albuterol (Combivent Respimat), 1 PUFF INH UD PRN for SOB/Wheezing Allergies Coded Allergies: Cephalosporins (Verified Allergy, Severe, TONGUE SWELLING WITH KEFLEX, 01/30) Penicillins (Verified Allergy, Severe, HIVES, SOB, 05/25/17) Tamsulosin (Verified Allergy, Severe, SHORTNESS OF BREATH, 05/25/17) Butalbital (Verified Allergy, Intermediate, SHORTNESS OF BREATH, 05/25/17) Levetiracetam (Verified Allergy, Intermediate, RASH, 05/25/17) Sulfa Antibiotics (Verified Allergy, Unknown, "SULFA DRUGS" - UNKNOWN, 01/30) Morphine (Verified Adverse Reaction, Unknown, hallucinations, 05/25/17) Physical Exam Vital Signs Date Time Temp Pulse Resp B/P (MAP) Pulse Ox O2 Delivery O2 Flow Rate FiO2 05/25/17 14:25 105 05/25/17 14:01 99 Nasal Cannula 2.0 05/25/17 13:47 85 27 198/122 99 Nasal Cannula 05/25/17 13:15 202/105 05/25/17 12:56 96 22 206/116 99 Nasal Cannula 2.0 05/25/17 12:14 98 Nasal Cannula 2.0 05/25/17 12:14 98 Nasal Cannula 2.0 05/25/17 12:08 36.4 91 27 185/90 98 Nasal Cannula 2.0 05/25/17 12:08 98 Nasal Cannula 2.0 05/25/17 12:04 92 Physical Exam Physical Exam GENERAL: She is oriented to person, place, and time. She appears well- developed and well-nourished. She does not appear distressed. ____ HENT: Exam performed. Head: Normocephalic and atraumatic. Right Ear: External ear normal. No mastoid tenderness. Left Ear: External ear normal. No mastoid tenderness. Mouth/Throat: The oropharynx is clear and moist. No trismus in the jaw. No dental abscesses or uvula swelling. No oropharyngeal exudate or tonsillar abscesses. ____ EYES: Conjunctivae and EOM are normal. Pupils are equal, round, and reactive to light. Right eye exhibits no discharge. Left eye exhibits no discharge. No scleral icterus. ____ NECK: Normal range of motion. Neck supple. No JVD present. No spinous process tenderness present. No carotid bruit present. No rigidity. No tracheal deviation and normal range of motion present. No Brudzinski's sign and no Kernig 's sign noted. ____ CV: Normal rate, regular rhythm, normal heart sounds and intact distal pulses. There is no peripheral edema. Palpable radial pulses bue. ____ PULM/CHEST: She has rales at the bases bilaterally. No stridor. She has no wheezes. Chest Wall: She exhibits no tenderness. ____ ABD: The abdomen is soft. Bowel sounds are normal. She has no distension. No mass is present. There is no tenderness. There is no rebound, no guarding, no Churchill's sign and no tenderness at McBurney's point. Rovsig negative MUSC/SKEL: Normal range of motion. There is no peripheral edema, tenderness or deformity. LYMPH: No cervical adenopathy. ____ NEURO: She is alert and oriented to person, place, and time. She has normal strength. No cranial nerve deficit or sensory deficit. Coordination and gait normal. GCS eye subscore is 4. GCS verbal subscore is 5. GCS motor subscore is 6. Cerebellar tests wnl. ____ SKIN: Skin is warm and dry. She is not diaphoretic. ____ PSYCH: She has a normal mood and affect. She behavior is normal. Judgment and thought content normal. ____ Medical Decision & Procedures ER Provider Diagnostic Interpretation: X-ray: Per my interpretation, radiologist review. CHEST 2 VIEWS ROUTINE CLINICAL HISTORY: 82 years-old Female presenting with dayan. TECHNIQUE: PA and lateral views of the chest were obtained. COMPARISON: 04/07/2017. FINDINGS: Left subclavian pacer with leads to the right atrium and right ventricular apex. Epicardial pacing wires also evident. Median sternotomy wires and prostatic mitral valve noted. Atherosclerosis of the aortic arch. Cardiac silhouette mildly enlarged, unchanged. Bilateral small pleural effusions and basilar opacities. These are overall decreased from prior exam. No pneumothorax. Degenerative changes of the thoracic spine. Cholecystectomy clips noted. IMPRESSION: 1. Small bilateral pleural effusions and bibasilar opacities, likely atelectasis. No convincing evidence of pulmonary edema. 2. Cardiomegaly. Electronically signed by: Omer Kate M.D. 05/25/2017 12:49 PM Dictated Date/Time: 05/25/2017 12:47 PM Laboratory Results 05/25/17 12:15 Red Blood Count 4.61, Mean Corpuscular Volume 85.0, Mean Corpuscular Hemoglobin 27.1, Mean Corpuscular Hemoglobin Concent 31.9, Mean Platelet Volume 10.2, Neutrophils (%) (Auto) 85.9, Lymphocytes (%) (Auto) 10.6, Monocytes (%) (Auto) 2.5, Eosinophils (%) (Auto) 0.5, Basophils (%) (Auto) 0.2, Neutrophils # (Auto) 10.76, Lymphocytes # (Auto) 1.33, Monocytes # (Auto) 0.31, Eosinophils # (Auto) 0.06, Basophils # (Auto) 0.03 05/25/17 12:15 Test 05/25/17 12:14 05/25/17 12:15 Influenza Type A Antigen Neg for Influ A (NEG) Influenza Type B Antigen Neg for Influ B (NEG) White Blood Count 12.53 K/uL (4.8-10.8) Red Blood Count 4.61 M/uL (4.2-5.4) Hemoglobin 12.5 g/dL (12.0-16.0) Hematocrit 39.2 % (37-47) Mean Corpuscular Volume 85.0 fL (80-100) Mean Corpuscular Hemoglobin 27.1 pg (25-34) Mean Corpuscular Hemoglobin Concent 31.9 g/dl (32-36) Platelet Count 179 K/uL (130-400) Mean Platelet Volume 10.2 fL (7.4-10.4) Neutrophils (%) (Auto) 85.9 % Lymphocytes (%) (Auto) 10.6 % Monocytes (%) (Auto) 2.5 % Eosinophils (%) (Auto) 0.5 % Basophils (%) (Auto) 0.2 % Neutrophils # (Auto) 10.76 K/uL (1.4-6.5) Lymphocytes # (Auto) 1.33 K/uL (1.2-3.4) Monocytes # (Auto) 0.31 K/uL (0.11-0.59) Eosinophils # (Auto) 0.06 K/uL (0-0.5) Basophils # (Auto) 0.03 K/uL (0-0.2) RDW Standard Deviation 47.5 fL (36.4-46.3) RDW Coefficient of Variation 15.3 % (11.5-14.5) Immature Granulocyte % (Auto) 0.3 % Immature Granulocyte # (Auto) 0.04 K/uL (0.00-0.02) Anion Gap 4.0 mmol/L (3-11) Est Creatinine Clear Calc Drug Dose 25.7 ml/min Estimated GFR () 39.2 Estimated GFR (Non- 33.8 BUN/Creatinine Ratio 11.8 (10-20) Calcium Level 9.4 mg/dl (8.5-10.1) Troponin I 0.058 ng/ml (0-0.045) Pro-B-Type Natriuretic Peptide 2597 pg/ml (0-1800) Beta-Hydroxybutyric Acid 2.91 mg/dL (0.2-2.81) Digoxin Level 1.5 ng/ml (0.8-2.0) Laboratory results reviewed by me Medications Administered Medications (Trade) Dose Ordered Sig/[place]anning Route Start Time Stop Time Status Last Admin Dose Admin Aspirin (Aspirin Chew) 324 mg NOW STAT PO 05/25/17 12:08 05/25/17 12:09 DC 05/25/17 12:24 324 MG Nitroglycerin (Nitrostat Tab) 0.4 mg STK-MED ONCE .ROUTE 05/25/17 13:06 05/25/17 13:07 DC 05/25/17 13:06 0.4 MG Carvedilol (Coreg Tab) 12.5 mg NOW ONCE PO 05/25/17 13:30 05/25/17 13:31 DC 05/25/17 13:55 12.5 MG Isosorbide Mononitrate (Imdur Ext Rel Tab) 30 mg NOW ONCE PO 05/25/17 13:30 05/25/17 13:31 DC 05/25/17 13:55 30 MG ECG Per My Interpretation Indication: SOB/dyspnea Rate (beats per minute): 91 Rhythm: sinus rhythm Findings: LBBB, other (NE, QRS, and QTC intervals are within normal limits) Change: no significant change (from EKG done on April 07, 2017) ED Course 1202: The patient was evaluated in room C4. A complete history and physical exam was performed. 1208: Aspirin Chew 324 mg PO. 1217: EMR was reviewed - the patient had an echo done on March 21 2017, which showed an ejection fraction of 45 to 50 percent, left ventricular hypertrophy, and moderate tricuspid regurgitation. 1315: I reevaluated the patient and her family is at bedside. They state that the patient does not wear oxygen all the time, as she only takes it at night. The patient did not take her home medications, including Carvedilol. The patient 's blood pressure was elevated. She was given 1 sublingual Nitro for her CHF. 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 1330: Imdur Ext Rel Tab 30 mg PO, Coreg Tab 12.5 mg PO. 1331: Labs show leukocytosis of 12.5 Potassium 5.3. ProBNP 2597. Troponin elevated 0.058, chronically elevated. I discussed the patient with Dr. Early - [facility] [place] cardiology - he recommends bringing the patient into the hospital for diuresis given the patient's increased oxygen demand, worsening renal function, and elevated pro-BNP and troponin. He also recommends Lasix 40 mg and states that no Heparin is necessary at this time. 1335: Upon reexamination, the patient was resting. I discussed the test results and treatment plan with her and her family. The patient will be evaluated for further management. 1345: Furosemide 40 mg/Syringe 4 ml @ 4 mls/min IV. 1347: Discussed the patient's case with Dr. Lizzie BARRAZA hospitalist. The patient will be evaluated for further treatment and disposition. Medical Decision 1202: The patient was evaluated in room C4. A complete history and physical exam was performed. 1208: Aspirin Chew 324 mg PO. 1217: EMR was reviewed - the patient had an echo done on March 21 2017, which showed an ejection fraction of 45 to 50 percent, left ventricular hypertrophy, and moderate tricuspid regurgitation. 1315: I reevaluated the patient and her family is at bedside. They state that the patient does not wear oxygen all the time, as she only takes it at night. The patient did not take her home medications, including Carvedilol. The patient 's blood pressure was elevated. She was given 1 sublingual Nitro for her CHF. 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 1330: Imdur Ext Rel Tab 30 mg PO, Coreg Tab 12.5 mg PO. 1331: Labs show leukocytosis of 12.5 Potassium 5.3. ProBNP 2597. Troponin elevated 0.058, chronically elevated. I discussed the patient with Dr. Sharath BARRAZA cardiology - he recommends bringing the patient into the hospital for diuresis given the patient's increased oxygen demand, worsening renal function, and elevated pro-BNP and troponin. He also recommends Lasix 40 mg and states that no Heparin is necessary at this time. 1335: Upon reexamination, the patient was resting. I discussed the test results and treatment plan with her and her family. The patient will be evaluated for further management. 1345: Furosemide 40 mg/Syringe 4 ml @ 4 mls/min IV. 1347: Discussed the patient's case with Dr. Lizzie BARRAZA hospitalist. The patient will be evaluated for further treatment and disposition. Medication Reconcilliation Current Medication List: was personally reviewed by me Blood Pressure Screening Patient's blood pressure: Elevated blood pressure Referred to hospitalist. Consults Time Called: 1327 Consulting Physician: Dr. Sharath BARRAZA cardiology Returned Call: 1331 I discussed the patient with Dr. Sharath BARRAZA cardiology - he recommends bringing the patient into the hospital for diuresis given the patient's increased oxygen demand, worsening renal function, and elevated pro-BNP and troponin. He also recommends Lasix 40 mg and states that no Heparin is necessary at this time. Additional Consults: Time Called: 1345 Consulted Physician: Dr. Lizzie BARRAZA hospitalist Returned Call: 1345 Additional Comments: Discussed the patient's case with Dr. Lizzie BARRAZA hospitalist. The patient will be evaluated for further treatment and disposition. Impression Primary Impression: CHF exacerbation Scribe Attestation The scribe's documentation has been prepared under my direction and personally reviewed by me in its entirety. I confirm that the note above accurately reflects all work, treatment, procedures, and medical decision making performed by me. The chart was completed utilizing [employer] Speech voice recognition software. Grammatical errors, random word insertions, pronoun errors, and incomplete sentences are an occasional consequence of this system due to software limitations, ambient noise, and hardware issues. Any formal questions or concerns about the content, text, or information contained within the body of this dictation should be directly addressed to the physician for clarification. Departure Information Dispostion Being Evaluated By Hospitalist Referrals Crystal Mcguire, C.R.N.P (PCP) Problem Qualifiers Primary Impression: CHF exacerbation Heart failure type: unspecified Qualified Codes: I50.9 - Heart failure, unspecified
[2017-05-25 12:32] LABS: BASO % 0.2 %; BASO ABS # 0.03 K/uL (0-0.2); EOS % 0.5 %; EOS ABS # 0.06 K/uL (0-0.5); HEMATOCRIT 39.2 % (37-47); HEMOGLOBIN 12.5 g/dL (12.0-16.0); IG# 0.04 K/uL (0.00-0.02); LYMPH % 10.6 %; LYMPH ABS # 1.33 K/uL (1.2-3.4); MEAN CORPUSCULAR HEMOGLOBIN 27.1 pg (25-34); MEAN CORPUSCULAR HGB CONC 31.9 g/dl (32-36); MEAN PLATELET VOLUME 10.2 fL (7.4-10.4); MONO % 2.5 %; MONO ABS # 0.31 K/uL (0.11-0.59); NEUT % 85.9 %; NEUT ABS # 10.76 K/uL (1.4-6.5); PLATELET COUNT 179 K/uL (130-400); RED CELL DISTRIBUTION WIDTH CV 15.3 % (11.5-14.5); RED CELL DISTRIBUTION WIDTH SD 47.5 fL (36.4-46.3); WHITE BLOOD COUNT 12.53 K/uL (4.8-10.8)
[2017-05-25 12:45] LABS: CALCIUM 9.4 mg/dl (8.5-10.1); CREATININE 1.42 mg/dl (0.60-1.20); POTASSIUM 5.3 mmol/L (3.5-5.1)
--- NOTE | 2017-05-25 12:51 | DIAGNOSTIC IMAGING REPORT ---
CHEST 2 VIEWS ROUTINE CLINICAL HISTORY: 82 years-old Female presenting with dayan. TECHNIQUE: PA and lateral views of the chest were obtained. COMPARISON: 04/07/2017. FINDINGS: Left subclavian pacer with leads to the right atrium and right ventricular apex. Epicardial pacing wires also evident. Median sternotomy wires and prostatic mitral valve noted. Atherosclerosis of the aortic arch. Cardiac silhouette mildly enlarged, unchanged. Bilateral small pleural effusions and basilar opacities. These are overall decreased from prior exam. No pneumothorax. Degenerative changes of the thoracic spine. Cholecystectomy clips noted. IMPRESSION: 1. Small bilateral pleural effusions and bibasilar opacities, likely atelectasis. No convincing evidence of pulmonary edema. 2. Cardiomegaly. Electronically signed by: Omer Kate M.D. 05/25/2017 12:49 PM Dictated Date/Time: 05/25/2017 12:47 PM
[2017-05-25 12:59] LABS: INFLUENZA B ANTIGEN Neg for Influ B (NEG)
[2017-05-25] MEDS ORDERED: NITROGLYCERIN 0.4 MG SL PER TAB CHARGE ONE (13:06)
[2017-05-25] MEDS ORDERED: ISOSORBIDE MONONITRATE 30 MG TABCR PO ONE (13:30)
[2017-05-25] MEDS ORDERED: CARVEDILOL 12.5 MG TAB PO ONE (13:30)
[2017-05-25] MEDS ORDERED: FUROSEMIDE INJ 40 MG in SYRINGE 0 ML IV ONE (13:45)
[2017-05-25 14:01] VITALS: O2SAT 99; BMI 30.0
[2017-05-25] MEDS ORDERED: ONDANSETRON INJ 2 MG/ML 2 ML VIAL IV PRN (14:15)
[2017-05-25] MEDS ORDERED: HydrALAZINE HCL 20 MG/ML VIAL IV. PRN (14:15)
[2017-05-25] MEDS ORDERED: ALUMINUM/MAGNESIUM/SIMETH (MAALOX MAX) 30 ML UDC PO PRN (14:15)
[2017-05-25] MEDS ORDERED: MAGNESIUM HYDROXIDE SUSP 30 ML UDC PO PRN (14:15)
[2017-05-25] MEDS ORDERED: POLYETHYLENE (MIRALAX) 17 GM PACK PO PRN (14:15)
[2017-05-25] MEDS ORDERED: IPRATROPIUM BROMIDE NEB SOLN 0.02% 2.5 ML VIAL INH PRN (14:15)
[2017-05-25] MEDS ORDERED: NITROGLYCERIN 0.4 MG SL PER TAB CHARGE SL PRN (14:15)
[2017-05-25] MEDS ORDERED: ACETAMINOPHEN 325 MG TAB PO PRN (14:15)
[2017-05-25] MEDS ORDERED: ALBUT/IPRATROP 3MG/0.5MG NEB 3 ML VIAL INH PRN (14:15)
[2017-05-25] MEDS ORDERED: FUROSEMIDE 40 MG/4 ML VIAL ONE (14:18)
--- NOTE | 2017-05-25 14:43 | History and Physical ---
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 Patient states when she woke up this AM she felt extremely SOB. She was unable to eat or take medications because of shortness of breath. She notes symptoms are similar to admission in March due to CHF exacerbation. She follows w/ Dr. Breaux. Per patient, her base weight is 125 lbs, today she was 2lbs heavier. Recorded bed scale here states she is 153lbs. Patient denies any fever, chills, sweats, lightheadedness , dizziness, vision changes, CP, palpitations, edema, wheezing, cough, abdominal pain, nausea, vomiting, diarrhea, urinary symptoms, melena, numbness/ tingling, weakness, muscle/joint pain, anxiety/depression, active bleeding, or new skin discoloration/changes. In ED, patient was tachycardiac and hypertensive- again took none of AM medications- she was given Coreg and Imdur- HR improved. Past Medical/Surgical History Medical Problems: Chronic combined CHF - EF 45% CAD x2 CABG 2010 CKD III HTN HLD Complete heart block - pace placed 2011 Seizure disorder Paroxysmal AF Subdural hematoma s/p evacuation in February 2012 History of TIA PAD Mitral valve repair/annuloplasty ring - March 2010 Left THR - 2011 Bilateral intraocular lens implants - 2001 Cholecystectomy Hysterectomy Family History Heart disease Social History Smoking Status: Former Smoker Drug Use: none Marital Status: Housing status: lives alone Occupational Status: retired Immunizations History of Influenza Vaccine: Yes Influenza Vaccine Date: Nov 08, 2011 History of Tetanus Vaccine?: No History of Pneumococcal: No Pneumococcal Date: Jan 01, 2009 History of Hepatitis B Vaccine: No Allergies Coded Allergies: Cephalosporins (Verified Allergy, Severe, TONGUE SWELLING WITH KEFLEX, 01/30) Penicillins (Verified Allergy, Severe, HIVES, SOB, 05/25/17) Tamsulosin (Verified Allergy, Severe, SHORTNESS OF BREATH, 05/25/17) Butalbital (Verified Allergy, Intermediate, SHORTNESS OF BREATH, 05/25/17) Levetiracetam (Verified Allergy, Intermediate, RASH, 05/25/17) Sulfa Antibiotics (Verified Allergy, Unknown, "SULFA DRUGS" - UNKNOWN, 01/30) Morphine (Verified Adverse Reaction, Unknown, hallucinations, 05/25/17) Home Medications Scheduled Apixaban (Eliquis), 2.5 MG PO BID Aspirin (Aspirin Ec), 81 MG PO QAM Calcium/Vitamin D (Os-Emile 500 Plus D), 2 TAB PO BID Carvedilol (Carvedilol), 12.5 MG PO BID Digoxin (Digoxin), 0.125 MG PO DAILY@16 Furosemide (Furosemide), 20 MG PO QAM Gabapentin (Gabapentin), 400 MG PO BID Isosorbide Mononitrate Ext Rel (Imdur Ext Rel), 30 MG PO QAM Lovastatin (Mevacor), 40 MG PO HS Nortriptyline HCl (Nortriptyline HCl), 20 MG PO HS Scheduled PRN Ipratropium Ranson (Ipratropium Ranson), 1 VIAL NEB Q4 PRN for SOB/Wheezing Ipratropium-Albuterol (Combivent Respimat), 1 PUFF INH UD PRN for SOB/Wheezing Physical Exam Vital Signs Date Time Temp Pulse Resp B/P (MAP) Pulse Ox O2 Delivery O2 Flow Rate FiO2 05/25/17 14:01 99 Nasal Cannula 2.0 05/25/17 13:47 85 27 198/122 99 Nasal Cannula 05/25/17 13:15 202/105 05/25/17 12:56 96 22 206/116 99 Nasal Cannula 2.0 05/25/17 12:14 98 Nasal Cannula 2.0 05/25/17 12:14 98 Nasal Cannula 2.0 05/25/17 12:08 36.4 91 27 185/90 98 Nasal Cannula 2.0 05/25/17 12:08 98 Nasal Cannula 2.0 05/25/17 12:04 92 General Appearance: no apparent distress Head: normocephalic, atraumatic Eyes: normal inspection, PERRL ENT: hearing grossly normal Neck: supple Respiratory/Chest: no respiratory distress, no accessory muscle use, + decreased breath sounds (throughout), + crackles (mild, bilateral lung bases ), + pertinent finding (on O2 NC ) Cardiovascular: regular rate, rhythm Abdomen/GI: normal bowel sounds, non tender, soft Back: normal inspection Extremities/Musculoskelatal: no calf tenderness, no pedal edema Neurologic/Psych: alert, normal mood/affect, oriented x 3 Skin: normal color, warm/dry, no rash Diagnostics Laboratory Results Results Past 24 Hours Test 05/25/17 12:14 05/25/17 12:15 Range/Units Influenza Type A Antigen Neg for Influ A NEG Influenza Type B Antigen Neg for Influ B NEG White Blood Count 12.53 4.8-10.8 K/uL Red Blood Count 4.61 4.2-5.4 M/uL Hemoglobin 12.5 12.0-16.0 g/dL Hematocrit 39.2 37-47 % Mean Corpuscular Volume 85.0 80-100 fL Mean Corpuscular Hemoglobin 27.1 25-34 pg Mean Corpuscular Hemoglobin Concent 31.9 32-36 g/dl Platelet Count 179 130-400 K/uL Mean Platelet Volume 10.2 7.4-10.4 fL Neutrophils (%) (Auto) 85.9 % Lymphocytes (%) (Auto) 10.6 % Monocytes (%) (Auto) 2.5 % Eosinophils (%) (Auto) 0.5 % Basophils (%) (Auto) 0.2 % Neutrophils # (Auto) 10.76 1.4-6.5 K/uL Lymphocytes # (Auto) 1.33 1.2-3.4 K/uL Monocytes # (Auto) 0.31 0.11-0.59 K/uL Eosinophils # (Auto) 0.06 0-0.5 K/uL Basophils # (Auto) 0.03 0-0.2 K/uL RDW Standard Deviation 47.5 36.4-46.3 fL RDW Coefficient of Variation 15.3 11.5-14.5 % Immature Granulocyte % (Auto) 0.3 % Immature Granulocyte # (Auto) 0.04 0.00-0.02 K/uL Sodium Level 135 136-145 mmol/L Potassium Level 5.3 3.5-5.1 mmol/L Chloride Level 104 98-107 mmol/L Carbon Dioxide Level 27 21-32 mmol/L Anion Gap 4.0 3-11 mmol/L Blood Urea Nitrogen 17 7-18 mg/dl Creatinine 1.42 0.60-1.20 mg/dl Est Creatinine Clear Calc Drug Dose 25.7 ml/min Estimated GFR () 39.2 Estimated GFR (Non- 33.8 BUN/Creatinine Ratio 11.8 10-20 Random Glucose 334 70-99 mg/dl Calcium Level 9.4 8.5-10.1 mg/dl Troponin I 0.058 0-0.045 ng/ml Pro-B-Type Natriuretic Peptide 2597 0-1800 pg/ml Beta-Hydroxybutyric Acid 2.91 0.2-2.81 mg/dL Digoxin Level 1.5 0.8-2.0 ng/ml Diagnostic Radiology CHEST 2 VIEWS ROUTINE CLINICAL HISTORY: 82 years-old Female presenting with dayan. TECHNIQUE: PA and lateral views of the chest were obtained. COMPARISON: 04/07/2017. FINDINGS: Left subclavian pacer with leads to the right atrium and right ventricular apex. Epicardial pacing wires also evident. Median sternotomy wires and prostatic mitral valve noted. Atherosclerosis of the aortic arch. Cardiac silhouette mildly enlarged, unchanged. Bilateral small pleural effusions and basilar opacities. These are overall decreased from prior exam. No pneumothorax. Degenerative changes of the thoracic spine. Cholecystectomy clips noted. IMPRESSION: 1. Small bilateral pleural effusions and bibasilar opacities, likely atelectasis. No convincing evidence of pulmonary edema. 2. Cardiomegaly. Electronically signed by: Omer Kaet M.D. 05/25/2017 12:49 PM Dictated Date/Time: 05/25/2017 12:47 PM The status of this report is Signed. Draft = Not yet reviewed or approved by Radiologist. Signed = Reviewed and approved by Radiologist. EKG TIM GATES ID:[id number] 25-MAY-2017 12:06:27 [facility] Poor data quality, interpretation may be adversely affected Normal sinus rhythm Anteroseptal infarct (cited on or before 25-MAY-2017) ST & T wave abnormality, consider lateral ischemia Abnormal ECG When compared with ECG of 07-APR-2017 12:36, Criteria for Inferior infarct are no longer Present 25mm/s 10mm/mV 150Hz 8.0 SP2 12SL 241 HD MEGA: 12 Referred by: Unconfirmed Vent. 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 Acute respiratory failure w/ hypoxia secondary to combined CHF exacerbation: - Admit to tele for cardiac monitoring - Trend cardiac enzymes- chronically elevated around 0.05-0.1 - ECHO 03/2017 w/ EF of 45-50% - IV Lasix 40 mg BID - Monitor I&Os and daily weights- baseline weight 125lbs - Consult cardiology, appreciate recommendations - Influenza negative Mild hyperkalemia: IV Lasix as above, follow K level Hyperglycemia: - Lantus 5 u SQ now x1 - BSG ACHS and ISS - Check hgbA1c Paroxysmal a.fib, CAD, HLD, HTN: - Continue Eliquis, ASA, Coreg, Digoxin, Imdur, Lovastatin -- Digoxin level WNL 05/25 - IV Hydralazine PRN - Hold PO Lasix- IV Lasix as above 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 Samuel I performed a history and physical examination on the patient. I reviewed above note and agree with it. I discussed plan with APC and patient. During my face to face encounter with the patient, I answered all of the patient's questions. Patient appears to be in acute congestive heart failure. Patient will be diuresed and will monitor her I's and O's.
[2017-05-25] MEDS ORDERED: GLUCOSE 40% GEL 15 GM TUBE PO PRN (15:30)
[2017-05-25] MEDS ORDERED: GLUCOSE 10 TABS/TUBE PO PRN (15:30)
[2017-05-25] MEDS ORDERED: GLUCAGON FOR INJ 1 MG VIAL SQ PRN (15:30)
[2017-05-25] MEDS ORDERED: DEXTROSE 50% 50 ML SYR IV PRN (15:30)
[2017-05-25 16:00] VITALS: BP 198/101; PULSE 79; TEMP 36.8; O2SAT 97
[2017-05-25] MEDS ORDERED: DIGOXIN 0.125 MG TAB PO SCH (16:00)
[2017-05-25] MEDS ORDERED: LANTUS PER UNIT CHARGE SQ ONE (16:00)
[2017-05-25 16:16] VITALS: Ht 152.4 cm; Wt 56.9 kg
[2017-05-25] MEDS: IPRATROPIUM BROMIDE/ALBUTEROL respimat INH INH SCH ×2 (17:00→21:38)
--- NOTE | 2017-05-25 17:29 | Cardiology Consultation ---
Cardiology Consultation Date of Consultation: May 25, 2017. Requesting Physician: Amanuel Reason for Consultation: CHF Pt evaluation today including: conversation w/ patient, conversation w/ family , physical exam, chart review, lab review, review of studies, review of inpatient medication list History of Present Illness The patient is an 82-year-old woman with a longstanding history of cardiac disease to include coronary artery disease, atrial fibrillation, mitral valve disease, hypertension and ischemic cardiomyopathy who was apparently in her usual state of health until early this morning. Patient developed relatively acute onset of significant shortness of breath. This progressed to the point where she was dyspneic even with speech. She was sent to [facility] Emergency room where she was administered some diuretics. She did experience some relief after this intervention. EN route the patient was administered beta agonists but did not have significant relief of her dyspnea. She has not report significant chest discomfort associated with this episode. She has not report dizziness or lightheadedness. She has occasional aware of palpitations as stated that when she was breathing heavily she did have some sense of palpitation or rapid heartbeat. This is resolved currently. In general she claims to be active. She is able to ambulate without limiting dyspnea. She has not had symptoms of chest discomfort recently. As noted above she has occasional palpitations but nothing sustained. She normally sleeps on 1 or 2 pillows. She does use supplemental oxygen at nighttime but not during the day. According to her family members were present for the interview she occasionally has some swelling of lower extremities but this has not been true recently. They have been concerned because she has had some swelling of her abdomen which generally an indication of some decompensated heart failure. Past Medical/Surgical History Coronary artery disease status post coronary artery bypass grafting in 2010 Ischemic cardiomyopathy, EF 45% Mitral regurgitation, moderate Paroxysmal atrial fibrillation Complete heart block status post pacemaker Hypertension Hyperlipidemia COPD Gastroesophageal reflux disease Diabetes mellitus type 2 Cerebral vascular accident 2012 and TIA 2018 Hyperthyroidism Subdural hematoma Seizure disorder Peripheral arterial disease Depression Hearing loss Past surgical history: Coronary artery bypass grafting x2 2011 Mitral valve repair 2011 Dual-chamber Medtronic pacemaker implantation Cholecystectomy Hip replacement Hysterectomy Breast biopsy Shoulder surgery Varicose vein ligation Family History Heart disease Noncontributory given her advanced age Social History Smoking Status: Former Smoker History of Alcohol Use: No Currently lives independently Review of Systems Respiratory: + shortness of breath, + dyspnea on exertion Per HPI. Patient claims to be eating and drinking well recently. She has not report any constitutional symptoms such as fevers or chills All Other Systems: Reviewed and Negative Allergies Coded Allergies: Cephalosporins (Verified Allergy, Severe, TONGUE SWELLING WITH KEFLEX, 01/30) Penicillins (Verified Allergy, Severe, HIVES, SOB, 05/25/17) Tamsulosin (Verified Allergy, Severe, SHORTNESS OF BREATH, 05/25/17) Butalbital (Verified Allergy, Intermediate, SHORTNESS OF BREATH, 05/25/17) Levetiracetam (Verified Allergy, Intermediate, RASH, 05/25/17) Sulfa Antibiotics (Verified Allergy, Unknown, "SULFA DRUGS" - UNKNOWN, 01/30) Morphine (Verified Adverse Reaction, Unknown, hallucinations, 05/25/17) Medications Current Inpatient Medications Medications (Trade) Dose Ordered Sig/Channing Route Start Time Stop Time Status Last Admin Dose Admin Apixaban (Eliquis Tab) 2.5 mg BID PO 05/25/17 21:00 06/24/17 20:59 Aspirin (Ecotrin Tab) 81 mg QAM PO 05/26/17 09:00 06/25/17 08:59 Calcium/Vitamin D (Caltrate Plus Tab) 2 tab BID PO 05/25/17 21:00 06/24/17 20:59 Carvedilol (Coreg Tab) 12.5 mg BID PO 05/25/17 21:00 06/24/17 20:59 Digoxin (Lanoxin Tab) 0.125 mg DAILY@16 PO 05/25/17 16:00 06/24/17 15:59 Gabapentin (Neurontin Cap) 400 mg BID PO 05/25/17 21:00 06/24/17 20:59 Ipratropium [place] (Atrovent 0.02% 0.5MG/2.5ML Neb) 0.5 mg Q4 PRN INH 05/25/17 14:15 06/24/17 14:14 Isosorbide Mononitrate (Imdur Ext Rel Tab) 30 mg QAM PO 05/26/17 09:00 06/25/17 08:59 Lovastatin (Mevacor Tab) 40 mg HS PO 05/25/17 21:00 06/24/17 20:59 Nortriptyline HCl (Pamelor Cap) 20 mg HS PO 05/25/17 21:00 06/24/17 20:59 Albuterol/ Ipratropium (Combivent Respimat Inh) 1 puffs QID INH 05/25/17 17:00 06/24/17 16:59 Pantoprazole Sodium (Protonix Tab) 40 mg QAM PO 05/26/17 09:00 06/25/17 08:59 Acetaminophen (Tylenol Tab) 650 mg Q4H PRN PO 05/25/17 14:15 06/24/17 14:14 Al Hydrox/Mg Hydrox/Simethicone (Maalox Max Susp) 15 ml Q4H PRN PO 05/25/17 14:15 06/24/17 14:14 Magnesium Hydroxide (Milk Of Magnesia Susp) 30 ml Q12H PRN PO 05/25/17 14:15 06/24/17 14:14 Ondansetron HCl (Zofran Inj) 4 mg Q6H PRN IV 05/25/17 14:15 06/24/17 14:14 Nitroglycerin (Nitrostat Tab) 0.4 mg UD PRN SL 05/25/17 14:15 06/24/17 14:14 Polyethylene (Miralax Powder Packet) 17 gm DAILY PRN PO 05/25/17 14:15 06/24/17 14:14 Furosemide 40 mg/ Syringe 4 ml @ 4 mls/min BID17 IV 05/25/17 21:00 06/24/17 20:59 Albuterol/ Ipratropium (Duoneb) 3 ml Q4R PRN INH 05/25/17 14:15 06/24/17 14:14 Hydralazine HCl (HydrALAZINE INJ) 10 mg Q6H PRN IV. 05/25/17 14:15 06/24/17 14:14 Insulin Aspart (novoLOG ASPART) SLIDING SCALE G... ACHS SC 05/25/17 16:00 06/24/17 15:59 Glucose (Glucose 40% Gel) 15-30 GRAMS 15 GRAMS... UD PRN PO 05/25/17 15:30 06/24/17 15:29 Glucose (Glucose Chew Tab) 4-8 Tablets 4 Tabl... UD PRN PO 05/25/17 15:30 06/24/17 15:29 Dextrose (Dextrose 50% 50ML Syringe) 25-50ML OF 50% DW IV FOR... UD PRN IV 05/25/17 15:30 06/24/17 15:29 Glucagon (Glucagon Inj) 1 mg UD PRN SQ 05/25/17 15:30 06/24/17 15:29 Physical Exam Vital Signs Past 12 Hours Date Time Temp Pulse Resp B/P (MAP) Pulse Ox O2 Delivery O2 Flow Rate FiO2 05/25/17 15:17 73 17 190/104 100 05/25/17 14:37 83 29 199/91 100 Nasal Cannula 2.0 05/25/17 14:25 105 05/25/17 14:01 99 Nasal Cannula 2.0 05/25/17 13:47 85 27 198/122 99 Nasal Cannula 05/25/17 13:15 202/105 05/25/17 12:56 96 22 206/116 99 Nasal Cannula 2.0 05/25/17 12:14 98 Nasal Cannula 2.0 05/25/17 12:14 98 Nasal Cannula 2.0 05/25/17 12:08 36.4 91 27 185/90 98 Nasal Cannula 2.0 05/25/17 12:08 98 Nasal Cannula 2.0 05/25/17 12:04 92 She is alert and oriented x3. Mood affect appear normal. She answered all questions appropriately. Hard of hearing HEENT: Sclerae are anicteric. Pupils are equal and reactive to light and accommodation. Extraocular movements were intact. Neuro: Cranial nerves intact Neck: Examination of the submandibular region did not reveal any significant lymphadenopathy. Carotids are palpable bilaterally and free of bruits on auscultation. There was no evidence of jugular venous distention. The thyroid was not enlarged. Lungs: Lungs are clear to auscultation bilaterally. There are no rales wheezes or rhonchi. She has normal respiratory effort without use of accessory muscles. There is normal pulmonary excursion. Cardiac: The rhythm was regular. S1 and S2 were normal. Faint holosystolic murmur. The PMI was not markedly displaced on palpation. Chest: Well-healed pacemaker implant site in left upper pectoral area Abdomen: The abdomen was soft and nontender. Extremities: Patient has bilateral radial pulses that are equal in intensity. There is no evidence cyanosis or clubbing. There was no evidence of significant peripheral edema bilaterally. Skin: There are no rashes noted on examination today. Data Laboratory Results: Last 24 Hours Test 05/25/17 12:14 05/25/17 12:15 Influenza Type A Antigen Neg for Influ A Influenza Type B Antigen Neg for Influ B White Blood Count 12.53 K/uL Red Blood Count 4.61 M/uL Hemoglobin 12.5 g/dL Hematocrit 39.2 % Mean Corpuscular Volume 85.0 fL Mean Corpuscular Hemoglobin 27.1 pg Mean Corpuscular Hemoglobin Concent 31.9 g/dl Platelet Count 179 K/uL Mean Platelet Volume 10.2 fL Neutrophils (%) (Auto) 85.9 % Lymphocytes (%) (Auto) 10.6 % Monocytes (%) (Auto) 2.5 % Eosinophils (%) (Auto) 0.5 % Basophils (%) (Auto) 0.2 % Neutrophils # (Auto) 10.76 K/uL Lymphocytes # (Auto) 1.33 K/uL Monocytes # (Auto) 0.31 K/uL Eosinophils # (Auto) 0.06 K/uL Basophils # (Auto) 0.03 K/uL RDW Standard Deviation 47.5 fL RDW Coefficient of Variation 15.3 % Immature Granulocyte % (Auto) 0.3 % Immature Granulocyte # (Auto) 0.04 K/uL Sodium Level 135 mmol/L Potassium Level 5.3 mmol/L Chloride Level 104 mmol/L Carbon Dioxide Level 27 mmol/L Anion Gap 4.0 mmol/L Blood Urea Nitrogen 17 mg/dl Creatinine 1.42 mg/dl Est Creatinine Clear Calc Drug Dose 25.7 ml/min Estimated GFR () 39.2 Estimated GFR (Non- 33.8 BUN/Creatinine Ratio 11.8 Random Glucose 334 mg/dl Calcium Level 9.4 mg/dl Magnesium Level 2.1 mg/dl Troponin I 0.058 ng/ml Pro-B-Type Natriuretic Peptide 2597 pg/ml Beta-Hydroxybutyric Acid 2.91 mg/dL Digoxin Level 1.5 ng/ml Imaging: Chest x-ray did not demonstrate any acute cardiopulmonary findings EKG: Normal sinus rhythm with left bundle branch block Telemetry reviewed: Normal sinus rhythm no arrhythmia I performed a complete device interrogation for pacemaker today. Some episodes of paroxysmal atrial fibrillation which occurred on May 19. None recently. Overall infrequent episodes. Minimal pacing. Echocardiogram obtained 03/21/2017: Ejection fraction 45-50%. Moderate LVH. Mild tricuspid regurgitation. Mild mitral stenosis Assessment & Plan 1. Acute decompensated systolic heart failure: It seems that the patient had acute exacerbation of heart failure. Her x-ray was relatively benign and her BNP was only moderately elevated but she responded quite well to diuretic therapy. She still has an element of rales on examination. What precipitated her decompensation is unclear. She did not have any recent arrhythmias which would could have caused acute pulmonary edema. Her blood pressure however was markedly elevated at the time of admission and continues to be so. Review of her records suggest that she does have occasionally high blood pressures even in the outpatient setting. She is currently prescribed a diuretic which seems appropriate. She has improved significantly and hopefully will not require prolonged hospital stay. 2. Atrial fibrillation: Paroxysmal. No recent events. On appropriate anticoagulation. No difficulty with rate control currently. 3. Complete heart block: She paces very little. Normal function of her device 4. Coronary artery disease: Patient does have very mildly elevated cardiac markers which appear to be chronic in nature. Chest pain was not a prominent feature of her presentation and I think a decompensation of this nature would only have been secondary to a significant ischemic event if that were the etiology. Generally speaking she does not have symptoms of chest discomfort even with activity. I think we continue her current outpatient medical regimen. 5. Ischemic cardiomyopathy: She is mildly reduced LV systolic function. She is on carvedilol and valsartan. Patient is currently prescribed a daily dose of diuretic, 20 mg of Lasix daily. Generally speaking she does quite well. She likely could resume this dose after her acute exacerbation is resolved.
[2017-05-25] MEDS: INSULIN ASPART 100 UNITS/ML 3 ML PEN SC SCH ×2 (18:02→21:35)
[2017-05-25 20:00] VITALS: O2SAT 97
[2017-05-25 20:35] VITALS: BP 158/68; PULSE 69; TEMP 36.5; O2SAT 99
[2017-05-25 20:45] LABS: CKMB 4.2 ng/ml (0.5-3.6)
[2017-05-25] MEDS ORDERED: NORTRIPTYLINE HCL 10 MG CAP PO SCH (21:00)
[2017-05-25] MEDS ORDERED: LOVASTATIN 20 MG TAB PO SCH (21:00)
[2017-05-25] MEDS: CALCIUM 600MG + VIT D 400 IU TAB PO SCH (21:42)
[2017-05-25] MEDS: FUROSEMIDE INJ 40 MG in SYRINGE 0 ML IV SCH (21:42)
[2017-05-25] MEDS: CARVEDILOL 12.5 MG TAB PO SCH (21:43)
[2017-05-25] MEDS: APIXABAN 2.5 MG TAB PO SCH (21:44)
[2017-05-25] MEDS: GABAPENTIN 400 MG CAP PO SCH (21:45)
[2017-05-25 23:56] VITALS: BP 150/66; PULSE 66; TEMP 36.7; O2SAT 98
[2017-05-26] VITALS (7 sets, daily range): BP systolic 112–157; BP diastolic 51–74; PULSE 63–66; TEMP 36.6–36.7; O2SAT 94–99
[2017-05-26 04:20] LABS: HEMOGLOBIN 11.6 g/dL (12.0-16.0); MEAN CELL VOLUME 83.3 fL (80-100); MEAN CORPUSCULAR HEMOGLOBIN 26.9 pg (25-34); MEAN CORPUSCULAR HGB CONC 32.2 g/dl (32-36); MEAN PLATELET VOLUME 10.8 fL (7.4-10.4); PLATELET COUNT 178 K/uL (130-400); RED CELL DISTRIBUTION WIDTH CV 15.1 % (11.5-14.5); RED CELL DISTRIBUTION WIDTH SD 46.3 fL (36.4-46.3); WHITE BLOOD COUNT 10.25 K/uL (4.8-10.8)
[2017-05-26 04:48] LABS: BLOOD UREA NITROGEN 19 mg/dl (7-18); CALCIUM 8.9 mg/dl (8.5-10.1); CARBON DIOXIDE 33 mmol/L (21-32); CKMB 3.6 ng/ml (0.5-3.6); CREATININE 1.39 mg/dl (0.60-1.20); GLUCOSE 163 mg/dl (70-99); POTASSIUM 3.9 mmol/L (3.5-5.1); SODIUM 135 mmol/L (136-145)
[2017-05-26 06:12] LABS: HEMOGLOBIN A1C 7.5 % (4.5-5.6)
--- NOTE | 2017-05-26 07:44 | Clinical Documentation Query ---
CLINICAL DOCUMENTATION QUERY Dr. BARCENAS, Combined CHF exacerbation cannot be interpreted by the coders to mean combined systolic and diastolic CHF exacerbation In your clinical opinion is this patient being managed for: ( x) Acute on chronic combined systolic and diastolic CHF ( ) Acute systolic CHF ( ) Not Agree ( ) Other explanation of clinical findings (Please Explain) ( ) Unable to determine (Please Define) ( ) Need to Discuss The medical record reflects the following clinical findings, treatment, and risk factors. Clinical Indicators: Documentation reflects pt with combined CHF exacerbation. ECHO Mar 2017 with EF 45-50%, no mention of diastolic dysfunction however Jan 2017 with EF 40-45% and type I diastolic dysfunction. Treatment: tele, IV lasix, cardiology consult, daily wts, I/O Risk Factors:CKD stage 3, CAD, A fib Please clarify and document your clinical opinion in the progress notes and discharge summary. Terms such as "probable", "suspected", "likely", "questionable", "possible", or "still to be ruled out" are acceptable. IF IN AGREEMENT, YOU MUST DOCUMENT ABOVE DIAGNOSTIC STATEMENT IN DAILY PROGRESS NOTES AND DISCHARGE SUMMARY. This document is not part of the patient's record. Thank You, Dimple rTejo, RN [phone]
--- NOTE | 2017-05-26 07:47 | Clinical Documentation Query ---
CLINICAL DOCUMENTATION QUERY Ms. ADAM, Combined CHF exacerbation cannot be interpreted by the coders to mean combined systolic and diastolic CHF exacerbation In your clinical opinion is this patient being managed for: ( x ) Acute on chronic combined systolic and diastolic CHF ( ) Not Agree ( ) Other explanation of clinical findings (Please Explain) ( ) Unable to determine (Please Define) ( ) Need to Discuss The medical record reflects the following clinical findings, treatment, and risk factors. Clinical Indicators: Documentation reflects pt with combined CHF exacerbation. ECHO Mar 2017 with EF 45-50%, no mention of diastolic dysfunction however Jan 2017 with EF 40-45% and type I diastolic dysfunction. Treatment: tele, IV lasix, cardiology consult, daily wts, I/O Risk Factors:CKD stage 3, CAD, A fib Please clarify and document your clinical opinion in the progress notes and discharge summary. Terms such as "probable", "suspected", "likely", "questionable", "possible", or "still to be ruled out" are acceptable. IF IN AGREEMENT, YOU MUST DOCUMENT ABOVE DIAGNOSTIC STATEMENT IN DAILY PROGRESS NOTES AND DISCHARGE SUMMARY. This document is not part of the patient's record. Thank You, Dimple Trejo, RN [phone]
[2017-05-26] MEDS: FUROSEMIDE INJ 40 MG in SYRINGE 0 ML IV SCH (07:53)
[2017-05-26] MEDS: IPRATROPIUM BROMIDE/ALBUTEROL respimat INH INH SCH ×2 (07:53→13:00)
[2017-05-26] MEDS: CALCIUM 600MG + VIT D 400 IU TAB PO SCH (07:53)
[2017-05-26] MEDS: APIXABAN 2.5 MG TAB PO SCH (07:54)
[2017-05-26] MEDS: CARVEDILOL 12.5 MG TAB PO SCH (07:54)
[2017-05-26] MEDS: GABAPENTIN 400 MG CAP PO SCH (07:55)
[2017-05-26] MEDS: INSULIN ASPART 100 UNITS/ML 3 ML PEN SC SCH ×2 (07:58→13:37)
[2017-05-26] MEDS ORDERED: ASPIRIN 81 MG ECTAB PO SCH (09:00)
[2017-05-26] MEDS ORDERED: ISOSORBIDE MONONITRATE 30 MG TABCR PO SCH (09:00)
[2017-05-26] MEDS ORDERED: PANTOprazole SOD 40 MG TAB PO SCH (09:00)
--- NOTE | 2017-05-26 09:45 | Cardiology Follow-Up ---
Subjective Date of Service: May 26, 2017. Pt evaluation today including: conversation w/ patient, physical exam, chart review, lab review, review of studies, review of inpatient medication list History of Present Illness Patient states she did not get much rest last night due to her SCDs. He states that the breathing however is much improved. She claims to have been ambulatory to the commode without significant dyspnea. She did use a walker. She has no dizziness or lightheadedness. No chest pain. Social History Smoking Status: Former Smoker History of Alcohol Use: No Review of Systems Respiratory: + shortness of breath, + dyspnea on exertion Per HPI. Patient claims to be eating and drinking well recently. She has not report any constitutional symptoms such as fevers or chills Objective Vital Signs Past 12 Hours Date Time Temp Pulse Resp B/P (MAP) Pulse Ox O2 Delivery O2 Flow Rate FiO2 05/26/17 08:02 36.7 64 18 157/74 (101) 98 Nasal Cannula 3.0 05/26/17 04:41 36.6 63 16 132/65 (87) 94 BiPAP 05/26/17 04:00 Nasal Cannula 2.0 05/26/17 00:05 Nasal Cannula 2.0 05/25/17 23:56 36.7 66 16 150/66 (94) 98 Nasal Cannula 3.0 Last Recorded Weight-Kilograms: 56.900 Physical Exam She is alert and oriented x3. Mood affect appear normal. She answered all questions appropriately. Hard of hearing HEENT: Sclerae are anicteric. Pupils are equal and reactive to light and accommodation. Extraocular movements were intact. Neuro: Cranial nerves intact Neck: Examination of the submandibular region did not reveal any significant lymphadenopathy. Carotids are palpable bilaterally and free of bruits on auscultation. There was no evidence of jugular venous distention. The thyroid was not enlarged. Lungs: Occasional crackle in the bases bilaterally Cardiac: The rhythm was regular. S1 and S2 were normal. Faint holosystolic murmur. The PMI was not markedly displaced on palpation. Chest: Well-healed pacemaker implant site in left upper pectoral area Abdomen: The abdomen was soft and nontender. Extremities: Patient has bilateral radial pulses that are equal in intensity. There is no evidence cyanosis or clubbing. There was no evidence of significant peripheral edema bilaterally. Skin: There are no rashes noted on examination today. Data Laboratory Results: Last 24 Hours Test 05/25/17 12:14 05/25/17 12:15 05/25/17 16:43 05/25/17 20:00 Influenza Type A Antigen Neg for Influ A Influenza Type B Antigen Neg for Influ B White Blood Count 12.53 K/uL Red Blood Count 4.61 M/uL Hemoglobin 12.5 g/dL Hematocrit 39.2 % Mean Corpuscular Volume 85.0 fL Mean Corpuscular Hemoglobin 27.1 pg Mean Corpuscular Hemoglobin Concent 31.9 g/dl Platelet Count 179 K/uL Mean Platelet Volume 10.2 fL Neutrophils (%) (Auto) 85.9 % Lymphocytes (%) (Auto) 10.6 % Monocytes (%) (Auto) 2.5 % Eosinophils (%) (Auto) 0.5 % Basophils (%) (Auto) 0.2 % Neutrophils # (Auto) 10.76 K/uL Lymphocytes # (Auto) 1.33 K/uL Monocytes # (Auto) 0.31 K/uL Eosinophils # (Auto) 0.06 K/uL Basophils # (Auto) 0.03 K/uL RDW Standard Deviation 47.5 fL RDW Coefficient of Variation 15.3 % Immature Granulocyte % (Auto) 0.3 % Immature Granulocyte # (Auto) 0.04 K/uL Sodium Level 135 mmol/L Potassium Level 5.3 mmol/L Chloride Level 104 mmol/L Carbon Dioxide Level 27 mmol/L Anion Gap 4.0 mmol/L Blood Urea Nitrogen 17 mg/dl Creatinine 1.42 mg/dl Est Creatinine Clear Calc Drug Dose 25.7 ml/min Estimated GFR () 39.2 Estimated GFR (Non- 33.8 BUN/Creatinine Ratio 11.8 Random Glucose 334 mg/dl Calcium Level 9.4 mg/dl Magnesium Level 2.1 mg/dl Troponin I 0.058 ng/ml Pro-B-Type Natriuretic Peptide 2597 pg/ml Beta-Hydroxybutyric Acid 2.91 mg/dL Digoxin Level 1.5 ng/ml Bedside Glucose 199 mg/dl Creatine Kinase MB Ratio Test 05/25/17 20:08 05/25/17 20:37 05/26/17 04:03 Creatine Kinase MB 4.2 ng/ml 3.6 ng/ml Troponin I 0.211 ng/ml 0.165 ng/ml Bedside Glucose 137 mg/dl White Blood Count 10.25 K/uL Red Blood Count 4.32 M/uL Hemoglobin 11.6 g/dL Hematocrit 36.0 % Mean Corpuscular Volume 83.3 fL Mean Corpuscular Hemoglobin 26.9 pg Mean Corpuscular Hemoglobin Concent 32.2 g/dl RDW Standard Deviation 46.3 fL RDW Coefficient of Variation 15.1 % Platelet Count 178 K/uL Mean Platelet Volume 10.8 fL Sodium Level 135 mmol/L Potassium Level 3.9 mmol/L Chloride Level 99 mmol/L Carbon Dioxide Level 33 mmol/L Anion Gap 3.0 mmol/L Blood Urea Nitrogen 19 mg/dl Creatinine 1.39 mg/dl Est Creatinine Clear Calc Drug Dose 26.2 ml/min Estimated GFR () 40.2 Estimated GFR (Non- 34.7 BUN/Creatinine Ratio 13.4 Random Glucose 163 mg/dl Estimated Average Glucose 169 mg/dl Hemoglobin A1c 7.5 % Calcium Level 8.9 mg/dl Creatine Kinase MB Ratio Imaging: EKG: Telemetry reviewed: Assessment and Plan 1. Acute decompensated systolic heart failure: Clinically much improved. Her lung examination reveals a few crackles but overall good aeration. No expiratory wheezing. I think some continued diuresis over the course of today would likely be adequate. If her clinical condition improves to the point where she is able to be discharged I do not think an adjustment in her home medical regimen is necessary. She has done very well with this regimen for several months. 2. Atrial fibrillation: Paroxysmal. No recent events. On appropriate anticoagulation. Good rate control 3. Complete heart block: She paces very little. Normal function of her device based on yesterday's interrogation 4. Coronary artery disease: No current symptoms. I do not think there is a need for any ischemic evaluation given the very mild elevations in her biomarkers. Overall elevations are likely related to an element of hypoxia due to pulmonary edema. 5. Ischemic cardiomyopathy: She is mildly reduced LV systolic function. She is on carvedilol and valsartan. Patient is currently prescribed a daily dose of diuretic, 20 mg of Lasix daily. Generally speaking she does quite well. She likely could resume this dose after her acute exacerbation is resolved. 6. Hypertension: Blood pressure appear to be better controlled currently. Unclear she has been compliant with her medications at home. It is very possible that her elevated blood pressures resulted in her decompensation.
[2017-05-26] MEDS ORDERED: LSX20 PO (14:11)
--- NOTE | 2017-05-26 14:33 | Discharge Instructions ---
Discharge Instructions Date of Service May 26, 2017. Admission Reason for Admission: Chf Exacerbation Discharge Discharge Diagnosis / Problem: Acute CHF Exacerbation Discharge Goals Goal(s): Decrease discomfort, Improve function, Increase independence Activity Recommendations Activity Limitations: resume your previous activity . Instructions / Follow-Up Instructions / Follow-Up Acute Heart Failure: - It appears that you were holding on to extra fluid that made breathing a little more difficult - You also had some high blood pressures when you came in which may be the cause of more fluid congestion. Also make sure to check your night oxygen tube that it is connected to the machine because low oxygen levels at night can increase your blood pressure and can cause some more fluid congestion - Continue to weigh yourself daily. Avoid high salty foods in the diet. - Take your Lasix 20 mg daily this will help keep your fluid balanced - Make sure to take your blood pressure medication as well to keep this under control. - Will help get a follow-up appointment with your heart doctor and family doctor to just keep an eye on your fluid levels and make sure your breathing stays well Call your Primary Care doctor if any of the following symptoms or problems start or get worse: * Shortness of breath or difficulty breathing * Wake up at night short of breath * Chest pain * Cough * Swelling of your hands, feet, or legs * More fatigued or tired with your normal activity * Palpitations - sudden fast heart beats WEIGHT * Weigh yourself every morning after using the bathroom. * Use the same scale. * Wear the same amount of clothing. * Write your weight down on a chart. * Call your Primary Care doctor if you gain more than 2-3 pounds in 1-2 days. MEDICATIONS * Use this discharge instruction sheet for medication instructions. * Take your medications at the time your doctor ordered. * Do not skip a dose of your medicines. * If you miss a dose of medicine, take it as soon as possible, but DO NOT DOUBLE A DOSE. * Read your medicine information when you get home. * Know all of the side effects of your medicine. If in doubt, ask your pharmacist * Call your Primary Care doctor's office if you have any side effects. * Be sure all of your doctors know what medicine and herbs you take (including cold, flu, and herbal medicine). Take the following with you to your follow-up doctor appointments: * Weight Chart * Medication List * List of questions Do not drink excessive alcohol, beer or wine. Current Hospital Diet Patient's current hospital diet: AHA Diet (Heart Healthy), Low Sodium Diet (2gm Na) Discharge Diet Recommended Diet: AHA Diet (Heart Healthy), Low Sodium Diet (2gm Na) Pending Studies Studies pending at discharge: no Laboratory Results Hemoglobin A1c Test 05/26/17 04:03 Range/Units Estimated Average Glucose 169 mg/dl Hemoglobin A1c 7.5 H 4.5-5.6 % Lipid Panel Test 03/21/17 06:05 Range/Units Triglycerides Level 160 H 0-150 mg/dl Cholesterol Level 159 0-200 mg/dl HDL Cholesterol 36 mg/dl Cholesterol/HDL Ratio 4.4 LDL Cholesterol, Calculated 91 mg/dl Medical Emergencies . Who to Call and When: Call 911 or go to the Emergency Room if: * If at any time you feel your situation is an emergency * You have tightness or pain in your chest that does not go away with rest or Nitroglycerin * You are very short of breath even with rest . Non-Emergent Contact Non-Emergency issues call your: Primary Care Provider Call Non-Emergent contact if: you have a fever, your pain is concerning you, you have any medication questions . . "Provider Documentation" section prepared by Sara Monaco. .
--- NOTE | 2017-05-26 16:28 | Discharge Summary ---
Discharge Summary Date of Service May 26, 2017. Discharge Summary Admission Date: May 25, 2017 at 14:21 Discharge Date: May 26, 2017 Discharge Disposition: Home with services Principal Diagnosis: Acute Combined Systolic/Diastolic CHF Problems/Secondary Diagnoses: 1. 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 CAD x2 CABG 2010 3. CKD III 4. HTN 5. HLD 6. Complete Heart Block - S/P Pacer 2011 7. Seizure Disorder 8. Paroxysmal AF 9. Subdural Hematoma S/P Evacuation in February 2012 10. History of TIA 11. PAD 12. Mitral Valve Repair/Annuloplasty Ring - March 2010 13. Left THR - 2011 14. Bilateral Intraocular Lens Implants - 2001 15. Cholecystectomy 16. Hysterectomy Immunizations: Have You Had Influenza Vaccine: Yes Influenza Vaccine Date: Nov 08, 2011 History of Tetanus Vaccine?: No History of Pneumococcal: No Pneumococcal Date: Jan 01, 2009 History of Hepatitis B Vaccine: No Procedures: CHEST 2 VIEWS ROUTINE FINDINGS: Left subclavian pacer with leads to the right atrium and right ventricular apex. Epicardial pacing wires also evident. Median sternotomy wires and prostatic mitral valve noted. Atherosclerosis of the aortic arch. Cardiac silhouette mildly enlarged, unchanged. Bilateral small pleural effusions and basilar opacities. These are overall decreased from prior exam. No pneumothorax. Degenerative changes of the thoracic spine. Cholecystectomy clips noted. IMPRESSION: 1. Small bilateral pleural effusions and bibasilar opacities, likely atelectasis. No convincing evidence of pulmonary edema. 2. Cardiomegaly. Consultations: 1. Cardiology 2. PT/OT Medication Reconciliation Continued Medications: Apixaban (Eliquis) 2.5 Mg Tab 2.5 MG PO BID Aspirin (Aspirin Ec) 81 Mg Tab 81 MG PO QAM Calcium/Vitamin D (Os-Emile 500 Plus D) Tab 2 TAB PO BID Carvedilol (Carvedilol) 12.5 Mg Tab 12.5 MG PO BID Digoxin (Digoxin) 0.125 Mg Tab 0.125 MG PO DAILY@16 for 30 Days, #30 TAB 3 Refills Furosemide (Furosemide) 20 Mg Tab 20 MG PO QAM for 30 Days, #30 TAB (This prescription has been renewed) Gabapentin (Gabapentin) 400 Mg Cap 400 MG PO BID Ipratropium [place] (Ipratropium H[place]ole) 0.5 Mg/2.5 Ml Nebu 1 VIAL NEB Q4 PRN for SOB/Wheezing Ipratropium-Albuterol (Combivent Respimat) 1 Aer Aer 1 PUFF INH UD PRN for SOB/Wheezing Isosorbide Mononitrate Ext Rel (Imdur Ext Rel) 30 Mg Tabcr 30 MG PO QAM Lovastatin (Mevacor) 40 Mg Tab 40 MG PO HS Nortriptyline HCl (Nortriptyline HCl) 10 Mg Cap 20 MG PO HS Discharge Exam Review of Systems: Constitutional: No fever, No chills ENT: No nasal symptoms, No sore throat Respiratory: No cough, No dyspnea on exertion, No dyspnea at rest Cardiovascular: No chest pain, No orthopnea Abdomen: No pain, No nausea, No vomiting, No diarrhea, No constipation Musculoskeletal: No swelling, No calf pain Genitourinary - Female: No dysuria Hematologic / Lymphatic: No abnormal bleeding/bruising Integumentary: No rash Physical Exam: General Appearance: WD/WN, no apparent distress Eyes: sclerae normal Neck: supple, no JVD, trachea midline Respiratory/Chest: no respiratory distress, no accessory muscle use, + crackles (bases b/l) Cardiovascular: regular rate, rhythm, + systolic murmur Abdomen / GI: normal bowel sounds, non tender, soft Extremities: no calf tenderness, no pedal edema Neurologic/Psychiatric: alert, oriented x 3 Skin: normal color, warm/dry Hospital Course ADMISSION: Patient is a pleasant 82 y/o female, with PMHx of chronic combined CHF w/ EF 45%, CAD, CKD III, HTN, HLD, complete heart block s/p pacer, seizure disorder, paroxysmal a.fib, h/o TIA, h/o subdural, COPD, and PAD, who presented to the ED because of acute shortness of breath x1 day. Patient states when she woke up this AM she felt extremely SOB. She was unable to eat or take medications because of shortness of breath. She notes symptoms are similar to admission in March due to CHF exacerbation. She follows w/ Dr. Breaux. Per patient, her base weight is 125 lbs, today she was 2lbs heavier. Recorded bed scale here states she is 153lbs. Patient denies any fever, chills, sweats, lightheadedness, dizziness, vision changes, CP, palpitations, edema, wheezing, cough, abdominal pain, nausea, vomiting, diarrhea, urinary symptoms, melena, numbness/tingling, weakness, muscle/joint pain, anxiety/depression, active bleeding, or new skin discoloration/changes. In ED, patient was tachycardiac and hypertensive- again took none of AM medications- she was given Coreg and Imdur- HR improved. HOSPITAL COURSE: Patient is a pleasant 82 y/o female, with PMHx of chronic combined CHF w/ EF 45% , CAD, HTN, HLD, CKD III, complete heart block s/p pacer, seizure disorder, paroxysmal a.fib, h/o TIA, h/o subdural, COPD, and PAD, who presented to the ED because of acute shortness of breath x1 day. Acute Respiratory Distress 2/2 Acute Combined CHF Exacerbation: - This appears to be a rather mild exacerbation. Initial weights in ED highly inaccurate as her current weight is baseline at 125 lbs and diuresed at least for a negative balance of 750 cc at time of dictation (obviously did not lose 25 lbs overnight) - Discussed with daughter that she discovered the O2 tubing she utilizes at night wasn't connected to the concentrator which could explain the higher BPs ( not to mention not taking her medications prior to arriving to ED) and may have produced some hypoxia resulting in some worsening of her CHF. - Patient is complaint with daily weights and keeps a log - Unsure if there is an element of non-compliance with medications and will arrange home health services to help manage medications and did discuss this with her daughter as well - Cardiology followed - recommended to keep her current regimen as previously prescribed - Sent Rx for Lasix 20 mg daily just in case she needed more medication -- When discussing with the patient she did make comment that she was told to stop her Lasix on last admission which is not what is documented and she did have F/U with cardiology that the note states to continue this as well. Hopefully with home health this can reduce the possibility of unintentional non- compliance with medications HTN: - She was significantly hypertensive upon arrival with systolics > 200. However with hospitalization this stabilized simply on her home regimen suggesting that this could be a medication non-compliance issue Hyperglycemia: A1c 7.5 - It appears that she does monitor her sugars but currently is not on any regimen. Given advanced age and higher risk of adverse effects from hypoglycemia then hyperglycemia this may be more beneficial to just monitor especially given underlying CKD which may limit some regimen options - Would recommend to follow a low-carb diet for dietary management. Code Status: DNR Disposition: - Discussed with daughter and updated on condition and plan - Plan for home services and established PCP and Cardiology appointments - Did review outpatient records that have had multiple discussions about possibly moving n with relatives vs placement however this has ultimately been declined. She did do well with OT today but did not get a PT evaluation. It may be beneficial with home services to assess home environment and functionality at home. Discussed with daughter who states she feels that the patient would be suitable to return home yudy. since she lives very close. Could consider [facility] for additional resources if deemed necessary. Total Time Spent: Greater than 30 minutes This includes examination of the patient, discharge planning, medication reconciliation, and communication with other providers. Discharge Instructions Please refer to the electronic Patient Visit Report (Discharge Instructions) for additional information. Additional Copies To Crystal Mcguire C.R.N.P
== END 2017-05-26 15:40 | disposition home health service (06) | DRG 291 ==
LOC: EDBD 11:57 → C.EDC 11:59 → C.2E 14:21 → ENRESERV 14:44
PROVIDERS: ADMIT Internal Medicine Sports Medicine; ATTEND Internal Medicine
DX: I13.0 Hypertensive heart and chronic kidney disease with heart failure and stage 1 through stage 4 chronic kidney disease, or unspecified chronic kidney disease (principal); I50.43 Acute on chronic combined systolic (congestive) and diastolic (congestive) heart failure; R06.03 Acute respiratory distress; E87.5 Hyperkalemia; E11.65 Type 2 diabetes mellitus with hyperglycemia; E11.22 Type 2 diabetes mellitus with diabetic chronic kidney disease; Z66 Do not resuscitate; I48.0 Paroxysmal atrial fibrillation; N18.3 Chronic kidney disease, stage 3 (moderate); I25.10 Atherosclerotic heart disease of native coronary artery without angina pectoris; G40.909 Epilepsy, unspecified, not intractable, without status epilepticus; J44.9 Chronic obstructive pulmonary disease, unspecified; I73.9 Peripheral vascular disease, unspecified; E78.5 Hyperlipidemia, unspecified; F32.9 Major depressive disorder, single episode, unspecified; I25.5 Ischemic cardiomyopathy; Z51.81 Encounter for therapeutic drug level monitoring; Z79.899 Other long term (current) drug therapy; Z79.01 Long term (current) use of anticoagulants; Z79.82 Long term (current) use of aspirin; Z91.14 Patient's other noncompliance with medication regimen; Z95.1 Presence of aortocoronary bypass graft; Z86.73 Personal history of transient ischemic attack (TIA), and cerebral infarction without residual deficits; Z95.0 Presence of cardiac pacemaker; Z87.01 Personal history of pneumonia (recurrent); Z87.891 Personal history of nicotine dependence; Z88.1 Allergy status to other antibiotic agents; Z88.0 Allergy status to penicillin; Z88.2 Allergy status to sulfonamides; Z88.5 Allergy status to narcotic agent; Z88.8 Allergy status to other drugs, medicaments and biological substances

== ENCOUNTER → 2017-06-16 | Outpatient (CLI) | payer OTHER ==
[~2017-06-16] MED LIST changes: -MCRK20 PO; -PANT40TA2 PO; -VALS-56 PO
== END | disposition home or self-care (01) ==
LOC: C.LABPVFM 17:19
PROVIDERS: ATTEND Nurse Practitioner
DX: N39.0 Urinary tract infection, site not specified (principal)

== ENCOUNTER → 2017-09-14 | Outpatient (CLI) | payer OTHER ==
[~2017-09-14] MED LIST changes: +ACET-1256 PO; +CARV12.52 PO; +CLC100 PO; +DEXT30TA7 PO; +FURO-85 PO; +GABA-113 PO; +HYDR-5688 PO; +INSDGIPEN SQ; +IPRA-64 INH; +LDDP5 TD; -LNX125 PO; -LSX20 PO; +MOMLX PO; +NVLG SQ; +NVLGI/PEN SQ; +OXGN; +PANT40TA PO; +POTA-639 PO; +Remove Lidoderm Patch; +SENN-61 PO; +SPRIN/30 INH; +TIOT1SPR INH; +VALS40TA2 PO
[2017-09-14 12:50] LABS: BLOOD UREA NITROGEN 27 mg/dl (7-18); CALCIUM 9.1 mg/dl (8.5-10.1); CARBON DIOXIDE 28 mmol/L (21-32); CREATININE 1.32 mg/dl (0.60-1.20); GLUCOSE 117 mg/dl (70-99); POTASSIUM 4.5 mmol/L (3.5-5.1); SODIUM 135 mmol/L (136-145)
== END | disposition home or self-care (01) ==
LOC: C.LABWYN 16:26
PROVIDERS: ATTEND Internal Medicine
DX: I50.9 Heart failure, unspecified (principal)

== ENCOUNTER 2017-09-17 08:32 | Emergency (ER) | payer OTHER ==
[~2017-09-17] VITALS: Ht 152.4 cm; Wt 56.8 kg
[~2017-09-17 08:32] MED LIST changes: -ACET-1256 PO; -DEXT30TA7 PO; -GABA-113 PO; -HYDR-5688 PO; -IPRA-64 INH; -NVLGI/PEN SQ; -OXGN; -SPRIN/30 INH
[2017-09-17 08:35] VITALS: TEMP 36.7; Ht 152.4 cm; Wt 56.8 kg
[2017-09-17] MEDS ORDERED: LIDOCAINE/EPINEPH/TETRACAINE 1 EA SYR ONE (08:55)
[2017-09-17] MEDS ORDERED: ACET-1256 PO (09:52)
[2017-09-17] MEDS ORDERED: INSDGIPEN SQ (09:52)
[2017-09-17] MEDS ORDERED: SPRIN/30 INH (09:52)
[2017-09-17] MEDS ORDERED: NVLGI/PEN SQ (09:52)
[2017-09-17] MEDS ORDERED: OXGN (09:52)
[2017-09-17] MEDS ORDERED: IPRA-64 INH (09:52)
[2017-09-17] MEDS ORDERED: GABA-113 PO (09:52)
[2017-09-17] MEDS ORDERED: HYDR-5688 PO (09:52)
[2017-09-17] MEDS ORDERED: DEXT30TA7 PO (09:52)
--- NOTE | 2017-09-17 10:12 | DIAGNOSTIC IMAGING REPORT ---
HEAD WITHOUT CONTRAST (CT) CT DOSE: 537.48 mGy.cm HISTORY: Trauma fall TECHNIQUE: Multiaxial CT images of the head were performed without the use of intravenous contrast. A dose lowering technique was utilized adhering to the principles of ALARA. Comparison: 07/19/2017 Findings: The paranasal sinuses and mastoid air cells are clear. The calvarium and skull base are intact. The ventricles and sulci are within normal limits. There is no mass, hematoma, midline shift, or acute infarct. 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 No evidence for acute intracranial hemorrhage. Impression: Chronic and pre-existing change. No acute process. The above report was generated using voice recognition software. It may contain grammatical, syntax or spelling errors. Electronically signed by: Jered Gaona M.D. 09/17/2017 10:11 AM Dictated Date/Time: 09/17/2017 10:09 AM
[2017-09-17] MEDS ORDERED: ACETAMINOPHEN 500 MG TAB PO STA (10:50)
[2017-09-17 12:29] LABS: BASO % 0.3 %; BASO ABS # 0.03 K/uL (0-0.2); EOS % 0.9 %; HEMATOCRIT 36.7 % (37-47); HEMOGLOBIN 11.4 g/dL (12.0-16.0); IG# 0.07 K/uL (0.00-0.02); LYMPH % 26.4 %; LYMPH ABS # 2.96 K/uL (1.2-3.4); MEAN CORPUSCULAR HEMOGLOBIN 25.2 pg (25-34); MEAN CORPUSCULAR HGB CONC 31.1 g/dl (32-36); MEAN PLATELET VOLUME 9.3 fL (7.4-10.4); MONO % 3.3 %; MONO ABS # 0.37 K/uL (0.11-0.59); NEUT % 68.5 %; NEUT ABS # 7.69 K/uL (1.4-6.5); PLATELET COUNT 282 K/uL (130-400); RED CELL DISTRIBUTION WIDTH CV 16.3 % (11.5-14.5); RED CELL DISTRIBUTION WIDTH SD 48.3 fL (36.4-46.3); WHITE BLOOD COUNT 11.22 K/uL (4.8-10.8)
--- NOTE | 2017-09-17 12:35 | DIAGNOSTIC IMAGING REPORT ---
CHEST ONE VIEW PORTABLE CLINICAL HISTORY: weakness mental status change COMPARISON STUDY: 05/25/2017 FINDINGS: Chronic pleural and parenchymal change left base. Prior median sternotomy. Chronic prominence of pulmonary vasculature. IMPRESSION: Chronic change. No acute process. The above report was generated using voice recognition software. It may contain grammatical, syntax or spelling errors. Electronically signed by: Jered Gaona M.D. 09/17/2017 12:34 PM Dictated Date/Time: 09/17/2017 12:33 PM
[2017-09-17 12:39] LABS: PTT PATIENT 28.2 SECONDS (21.0-31.0)
[2017-09-17 12:50] LABS: ALBUMIN 3.4 gm/dl (3.4-5.0); CALCIUM 9.1 mg/dl (8.5-10.1); CREATININE 1.33 mg/dl (0.60-1.20); POTASSIUM 4.5 mmol/L (3.5-5.1); TOTAL PROTEIN 8.7 gm/dl (6.4-8.2)
[2017-09-17] MEDS ORDERED: ALBUT/IPRATROP 3MG/0.5MG NEB 3 ML VIAL INH STA (13:17)
[2017-09-17] MEDS ORDERED: VALSARTAN 80 MG TAB PO STA (13:17)
[2017-09-17] MEDS ORDERED: ISOSORBIDE MONONITRATE 30 MG TABCR PO ONE (13:30)
[2017-09-17] MEDS ORDERED: CARVEDILOL 12.5 MG TAB PO ONE (13:30)
[2017-09-17] MEDS ORDERED: FUROSEMIDE 40 MG TAB PO ONE (13:30)
[2017-09-17 14:24] VITALS: BP 118/59; PULSE 62; O2SAT 92
--- NOTE | 2017-09-17 14:46 | EMERGENCY ROOM VISIT NOTE ---
History Report prepared by Chaim: Breann Gonzalez Under the Supervision of: Dr. Jose Sanders M.D. First contact with patient: 08:35 Chief Complaint: LACERATION/CUT (NON-SUTURE) Stated Complaint: FALL/ HEAD LACROSA MARIA History of Present Illness The patient is an 82 year old female who presents to the Emergency Room with complaints of a laceration to the back of her head this morning. The patient states that she lost her balance and fell. She states that she is on a blood thinner for a history of atrial fibrillation. Pt denies LOC, headache, visual changes, neck pain, chest pain, breathing difficulties, nausea, vomiting, abdominal pain, back pain, extremity pain, numbness, weakness, urinary symptoms , open wounds, active bleeding, or other complaints. The patient denies any recent illness. Source of History: patient Onset: this morning Position: head (back) Quality: other (laceration ) Timing: constant Associated Symptoms: No neck pain, No chest pain, No SOB, No back pain Review of Systems See HPI for pertinent positives and negatives. A total of ten systems were reviewed and were otherwise negative. Past Medical & Surgical Medical Problems: (1) AORTOCORONARY BYPASS (2) ATRIAL FIBRILLATION (3) Atrial fibrillation with RVR (4) CHRONIC KIDNEY DISEASE, STAGE III (MODERATE) (5) CHRONIC SYSTOLIC HRT FAILURE (6) CORON ATHEROSCLER NOS TYPE VESSEL, [place] IN [place] OR GRAFT (7) CVA (8) Elevated troponin (9) Facial droop (10) Hyperglycemia due to type 2 diabetes mellitus (11) Implantation of cardiac pacemaker (12) Lower GI bleed (13) PNEUMONIA, ORGANISM NOS (14) Seizure (15) Subdural hematoma Surgical Problems: (1) Femur fracture Family History Heart disease Social History Smoking Status: Former Smoker Alcohol Use: none Drug Use: none Marital Status: Housing Status: lives alone Occupation Status: retired Current/Historical Medications Scheduled Apixaban (Eliquis), 2.5 MG PO BID Calcium/Vitamin D (Os-Emile 500 Plus D), 2 TAB PO BID Carvedilol (Coreg), 12.5 MG PO BID Dextromethorphan-Guaifenesin (Mucinex Dm), 1 TAB PO Q12 Furosemide (Lasix), 20 MG PO QAM Gabapentin (Gabapentin), 400 MG PO HS Gabapentin (Neurontin), 300 MG PO HS Home O2 Therapy (Oxygen), 2 LITERS NA PRN Insulin Aspart (Novolog Flexpen), 5 UNITS SQ DAILYBD Insulin Glargine (Lantus Solostar), 15 UNITS SQ HS Isosorbide Mononitrate Ext Rel (Imdur Ext Rel), 30 MG PO QAM Lovastatin (Mevacor), 40 MG PO HS Nortriptyline HCl (Nortriptyline HCl), 20 MG PO HS Pantoprazole (Protonix), 40 MG PO DAILY Potassium Ext Rel (Klor-Con), 20 MEQ PO DAILY Tiotropium [place] (Spiriva Handihaler), 1 CAP INH DAILY Valsartan (Diovan), 40 MG PO BID Scheduled PRN Acetaminophen (Tylenol), 500 MG PO Q6H PRN for Pain Hydrocodone/Acetaminophen 5MG/325MG ([place] 5MG/325MG), 1 TAB PO Q4H PRN for Pain Ipratropium-Albuterol (Combivent Respimat), 1 PUFF INH UD PRN for SOB/Wheezing Ipratropium-Albuterol (Duoneb), 1 TREATMENT INH Q4H PRN for SOB/Wheezing Allergies Coded Allergies: Cephalosporins (Verified Allergy, Severe, TONGUE SWELLING WITH KEFLEX, 09/17) Penicillins (Verified Allergy, Severe, HIVES, SOB, 09/17/17) Tamsulosin (Verified Allergy, Severe, SHORTNESS OF BREATH, 09/17/17) Butalbital (Verified Allergy, Intermediate, SHORTNESS OF BREATH, 09/17/17) Levetiracetam (Verified Allergy, Intermediate, RASH, 09/17/17) Sulfa Antibiotics (Verified Allergy, Unknown, "SULFA DRUGS" - UNKNOWN, 09/17) Morphine (Verified Adverse Reaction, Unknown, hallucinations, 09/17/17) Physical Exam Vital Signs Date Time Temp Pulse Resp B/P (MAP) Pulse Ox O2 Delivery O2 Flow Rate FiO2 09/17/17 14:24 62 20 118/59 92 Room Air 09/17/17 12:50 73 20 170/95 96 09/17/17 11:59 79 18 192/101 96 Room Air 80 188/91 82 168/78 09/17/17 08:35 36.7 76 20 174/86 96 Room Air Physical Exam GENERAL: Awake, alert, well appearing, no acute distress HEAD: Normocephalic. 1.5 cm to the left posterior occiput. No vogt sign. No raccoon eyes. EYES: Normal conjunctiva. PERRL. EARS: External ears normal. Right TM normal. Left TM normal. NOSE: Atraumatic OROPHARYNX: Lips, tongue, and mucosa unremarkable. No erythema or exudate. NECK: Supple. No nuchal rigidity. FROM. No tracheal deviation or JVD. No posterior midline tenderness. No step offs noted. RESPIRATORY: CTA bilaterally CARDIAC: Regular rate, normal rhythm. ABDOMEN: Inspection reveals no abnormalities. Soft, non distended. No tenderness to palpation. No hernias. BACK: No midline step offs or tenderness to palpation. Unremarkable. PELVIS: Stable to rock. SKIN: Normal. LYMPH: No adenopathy. MUSCULOSKELETAL: Upper and lower extremities are atraumatic. NEURO: GCS 15. Normal sensorium. No sensory or motor deficits noted. Medical Decision & Procedures ER Provider Diagnostic Interpretation: Radiology results as stated below per my review and radiologist interpretation: HEAD WITHOUT CONTRAST (CT) CT DOSE: 537.48 mGy.cm HISTORY: Trauma fall TECHNIQUE: Multiaxial CT images of the head were performed without the use of intravenous contrast. A dose lowering technique was utilized adhering to the principles of ALARA. Comparison: 07/19/2017 Findings: The paranasal sinuses and mastoid air cells are clear. The calvarium and skull base are intact. The ventricles and sulci are within normal limits. There is no mass, hematoma, midline shift, or acute infarct. 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 No evidence for acute intracranial hemorrhage. Impression: Chronic and pre-existing change. No acute process. The above report was generated using voice recognition software. It may contain grammatical, syntax or spelling errors. Electronically signed by: Jered Gaona M.D. 09/17/2017 10:11 AM Dictated Date/Time: 09/17/2017 10:09 AM CHEST ONE VIEW PORTABLE CLINICAL HISTORY: weakness mental status change COMPARISON STUDY: 05/25/2017 FINDINGS: Chronic pleural and parenchymal change left base. Prior median sternotomy. Chronic prominence of pulmonary vasculature. IMPRESSION: Chronic change. No acute process. The above report was generated using voice recognition software. It may contain grammatical, syntax or spelling errors. Electronically signed by: Jered Gaona M.D. 09/17/2017 12:34 PM Dictated Date/Time: 09/17/2017 12:33 PM Laboratory Results 09/17/17 12:15 Red Blood Count 4.53, Mean Corpuscular Volume 81.0, Mean Corpuscular Hemoglobin 25.2, Mean Corpuscular Hemoglobin Concent 31.1, Mean Platelet Volume 9.3, Neutrophils (%) (Auto) 68.5, Lymphocytes (%) (Auto) 26.4, Monocytes (%) (Auto) 3.3, Eosinophils (%) (Auto) 0.9, Basophils (%) (Auto) 0.3, Neutrophils # (Auto) 7.69, Lymphocytes # (Auto) 2.96, Monocytes # (Auto) 0.37, Eosinophils # (Auto) 0.10, Basophils # (Auto) 0.03 09/17/17 12:15 Test 09/17/17 12:15 09/17/17 13:36 White Blood Count 11.22 K/uL (4.8-10.8) Red Blood Count 4.53 M/uL (4.2-5.4) Hemoglobin 11.4 g/dL (12.0-16.0) Hematocrit 36.7 % (37-47) Mean Corpuscular Volume 81.0 fL (80-100) Mean Corpuscular Hemoglobin 25.2 pg (25-34) Mean Corpuscular Hemoglobin Concent 31.1 g/dl (32-36) Platelet Count 282 K/uL (130-400) Mean Platelet Volume 9.3 fL (7.4-10.4) Neutrophils (%) (Auto) 68.5 % Lymphocytes (%) (Auto) 26.4 % Monocytes (%) (Auto) 3.3 % Eosinophils (%) (Auto) 0.9 % Basophils (%) (Auto) 0.3 % Neutrophils # (Auto) 7.69 K/uL (1.4-6.5) Lymphocytes # (Auto) 2.96 K/uL (1.2-3.4) Monocytes # (Auto) 0.37 K/uL (0.11-0.59) Eosinophils # (Auto) 0.10 K/uL (0-0.5) Basophils # (Auto) 0.03 K/uL (0-0.2) RDW Standard Deviation 48.3 fL (36.4-46.3) RDW Coefficient of Variation 16.3 % (11.5-14.5) Immature Granulocyte % (Auto) 0.6 % Immature Granulocyte # (Auto) 0.07 K/uL (0.00-0.02) Prothrombin Time 10.7 SECONDS (9.0-12.0) Prothromb Time International Ratio 1.0 (0.9-1.1) Activated Partial Thromboplast Time 28.2 SECONDS (21.0-31.0) Partial Thromboplastin Ratio 1.1 Anion Gap 3.0 mmol/L (3-11) Est Creatinine Clear Calc Drug Dose 24.9 ml/min Estimated GFR () 42.4 Estimated GFR (Non- 36.6 BUN/Creatinine Ratio 16.3 (10-20) Calcium Level 9.1 mg/dl (8.5-10.1) Total Bilirubin 0.3 mg/dl (0.2-1) Aspartate Amino Transf (AST/SGOT) 16 U/L (15-37) Alanine Aminotransferase (ALT/SGPT) 21 U/L (12-78) Alkaline Phosphatase 110 U/L (45-117) Total Protein 8.7 gm/dl (6.4-8.2) Albumin 3.4 gm/dl (3.4-5.0) Globulin 5.3 gm/dl (2.5-4.0) Albumin/Globulin Ratio 0.6 (0.9-2) Urine Color YELLOW Urine Appearance CLEAR (CLEAR) Urine pH 6.0 (4.5-7.5) Urine Specific [place] 1.010 (1.000-1.030) Urine Protein NEG (NEG) Urine Glucose (UA) NEG (NEG) Urine Ketones NEG (NEG) Urine Occult Blood NEG (NEG) Urine Nitrite NEG (NEG) Urine Bilirubin NEG (NEG) Urine Urobilinogen NEG (NEG) Urine Leukocyte Esterase NEG (NEG) Laboratory results reviewed by me Medications Administered Medications (Trade) Dose Ordered Sig/[place] Route Start Time Stop Time Status Last Admin Dose Admin Tetracaine/ Epinephrine/ Lidocaine (L.e.t. Gel 4%/ 1:100/0.5%) 1 ea Espinela-MED ONCE .ROUTE 09/17/17 08:55 09/17/17 08:56 DC 09/17/17 08:58 1 EA Acetaminophen (Tylenol Tab) 1,000 mg NOW STAT PO 09/17/17 10:50 09/17/17 10:51 DC 09/17/17 10:58 1,000 MG Albuterol/ Ipratropium (Duoneb) 3 ml NOW STAT INH 09/17/17 13:17 09/17/17 13:18 DC 09/17/17 13:48 3 ML Carvedilol (Coreg Tab) 12.5 mg NOW ONCE PO 09/17/17 13:30 09/17/17 13:31 DC 09/17/17 13:47 12.5 MG Isosorbide Mononitrate (Imdur Ext Rel Tab) 30 mg NOW ONCE PO 09/17/17 13:30 09/17/17 13:31 DC 09/17/17 13:47 30 MG Valsartan (Diovan Tab) 40 mg NOW STAT PO 09/17/17 13:17 09/17/17 13:23 DC 09/17/17 14:24 40 MG Furosemide (Lasix Tab) 20 mg NOW ONCE PO 09/17/17 13:30 09/17/17 13:31 DC 09/17/17 13:48 20 MG Procedure Location: Scalp Total length: 1.5 cm Complexity: Simple Verbal consent was obtained after the risks and benefits were explained, including but not limited to bleeding, scarring, infection, pain, and bone/ nerve damage. At this time, the risks of the procedure are less than the risks of NOT performing the procedure. A time out was taken and the correct patient and site identified. The scalp was prepped with betadine. The target area was anesthetized with LET gel. Copious irrigation was performed using saline. The skin was re-prepped with betadine, the hair cleared from the wound, and a sterile field set. The wound was explored for foreign bodies and none found. Debridement was not performed. The wound edges were approximated using 2 surgical bebo in the standard fashion. Hemostasis and excellent approximation was achieved. Antibacterial ointment and a sterile dressing applied. Detailed wound care instructions and signs and symptoms of infection reviewed with the patient. No complications and the patient tolerated the procedure well. ECG Per My Interpretation Indication: weakness Rate (beats per minute): 76 Rhythm: normal sinus Findings: LBBB, other (no ST elevation, no ST depression) Change: no significant change ED Course 0844: The patient was evaluated in room B4B. A complete history and physical exam was performed. 0855: Ordered Tetracaine/Epinephrine/Lidocaine 1 ea TOP. 1049: I checked on the patient. She reports having a mild headache. I updated her daughter on the CT results. I will order Tylenol for the patient. 1050: Ordered Tylenol Tab 1000 mg PO. 1110: I performed a staple repair on the patient. Two bebo were placed. 1141: I checked on the patient. Her family noted that this is her third fall in a week and when she was getting up out of bed here she got weak and shaky which has happened to her with these prior episodes. We will get orthostatic vital signs, an ECG, and basic blood work on her. 1214: I checked on the patient. She was unsteady with her orthostatics and now has increased work of breathing. She states that her roommate had pneumonia and that she herself had a chest cold and was in bed for 3-4 days. Her family also reports that the patient recently had a femur fracture and was in [facility]. 1317: Ordered Duoneb 3 ml INH, Valsartan 40 mg PO. 1330: Ordered Lasix Tab 20 mg PO, Isosorbide Mononitrate 30 mg PO, Coreg Tab 12.5 mg PO. Medical Decision Prior records/ancillary studies reviewed. Triage Nursing notes reviewed and agree them. Additional history obtained from patient's daughter. She states that she has been having several falls this week. She tends to get shaky and generally weak before these episodes. She did not take her morning medications today. The patient recently had upper respiratory symptoms. Her roommate had pneumonia. 2 months ago she suffered a nondisplaced femur fracture and this was treated medically. She is on anticoagulation. She does have a history of a fall with intracranial bleeding that was treated with a bur hole. The patient's history was concerning for traumatic head injury and weakness. Differential diagnosis: Etiologies such as contusion, fracture, subdural hematoma, concussion, epidural hematoma, intraparenchymal hemorrhage, pneumonia, bronchitis, viral syndrome, UTI, electrolyte abnormality, as well as other pathologies were entertained. Physical examination findings: As above. ER treatment provided: P.o. Tylenol laceration repair On reassessment the patient had some increased work of breathing. She has been using nebulizer back at her place. She was given 1 DuoNeb. Lunch Morning medications as above the patient was not given her morning dose of Eliquis secondary to the acute head injury. She was informed that this can be restarted this evening. On reassessment the patient felt better. Diagnostics interpreted by me: ECG: No acute ischemia. The labs revealed a subtle leukocytosis on CBC. No significant anemia. Chemistry panel was unremarkable. Catheter urinalysis was done and revealed no evidence of infection. Imaging studies: Chest x-ray as above. No acute changes. It appears the patient had a minor closed head injury with small laceration from her fall. She has been dealing with weakness. She did have a URI this week. She is anticoagulated. The patient has no intracranial bleeding. She suffered no fracture or muscular skeletal injury from the fall. She had a benign neck examination without any pain. Because of the weakness she underwent additional testing after her daughter arrived and provided additional history. This did not reveal any significant abnormalities. The patient did very well during her 6 hours in the emergency department. Given the results of the tests and her current state I discussed discharge with close follow-up with the primary. The patient and daughter felt very comfortable with this. If she worsens in any way she will be back to the ER. She will have the bebo removed in 7 days. Wound instructions outlined. Head injury precautions given. I gave my usual and customary discussion regarding this issue. By the evaluation outlined above other emergent etiologies such as those listed in the differential, as well as others, were deemed relatively unlikely. The patient was educated about the findings as listed above. All questions were answered and the patient was pleased with the treatment. Return instructions were outlined and the patient was discharged in stable condition. The patient was referred to her PCP for follow-up for a recheck of the current condition. Medication Reconcilliation Current Medication List: was personally reviewed by me Blood Pressure Screening Patient's blood pressure: Elevated blood pressure Blood pressure disposition: Referred to PCP Impression Primary Impression: Fall Additional Impressions: Closed head injury Scalp laceration Weakness Scribe Attestation The scribe's documentation has been prepared under my direction and personally reviewed by me in its entirety. I confirm that the note above accurately reflects all work, treatment, procedures, and medical decision making performed by me. Departure Information Dispostion Home / Self-Care Referrals [facility] (PCP) Forms HOME CARE DOCUMENTATION FORM, IMPORTANT VISIT INFORMATION, WORK / SCHOOL INSTRUCTIONS Patient Instructions My [facility] Additional Instructions WOUND CARE INSTRUCTIONS: Bacitracin to wounds once daily. Use a sterile bandage and gauze wrap for the next 2-3 days to protect the wound. Do not get the wound wet or shower for the next 24 hours.. Change the dressings once a day. Ice compresses for 20 minutes at a time four times daily for 2-3 days as needed for swelling. Tylenol as needed for pain. Allow your wounds to air dry several hours per day when you are resting, but it is a good idea to keep them covered while sleeping to prevent irritation and the sheets sticking to the wound. Apply direct pressure for any bleeding. Return to the ER immediately for spreading redness, fevers, pus-like drainage, severe pain, confusion, headache, vomiting, or as needed. Return to the ER in 7 days for staple removal, or sooner as needed. Follow-up with primary office next week. Blood pressure was elevated and should be rechecked. Problem Qualifiers
== END 2017-09-17 14:56 | disposition home or self-care (01) ==
LOC: EDBD 08:32 → C.EDB 08:33
DX: S01.01XA Laceration without foreign body of scalp, initial encounter (principal); R53.1 Weakness; W01.198A Fall on same level from slipping, tripping and stumbling with subsequent striking against other object, initial encounter; R40.2412 Glasgow coma scale score 13-15, at arrival to emergency department; I48.91 Unspecified atrial fibrillation; N18.3 Chronic kidney disease, stage 3 (moderate); I50.22 Chronic systolic (congestive) heart failure; E11.65 Type 2 diabetes mellitus with hyperglycemia; Z87.891 Personal history of nicotine dependence; Z99.81 Dependence on supplemental oxygen; Z79.01 Long term (current) use of anticoagulants; Z79.4 Long term (current) use of insulin; Z79.51 Long term (current) use of inhaled steroids; Z79.899 Other long term (current) drug therapy; Z88.1 Allergy status to other antibiotic agents; Z88.0 Allergy status to penicillin; Z88.2 Allergy status to sulfonamides; Z88.6 Allergy status to analgesic agent; Z88.8 Allergy status to other drugs, medicaments and biological substances

== ENCOUNTER 2018-10-01 14:22 | Inpatient (IN) ==
[2018-10-01] MEDS ORDERED: SODIUM CHLORIDE 0.9% 1000ML 500 ML IV ONE (14:39)
[2018-10-01] MEDS ORDERED: SODIUM CHLORIDE 0.9% 1000ML 1,000 ML IV SCH (14:45)
--- NOTE | 2018-10-01 14:56 | CT Scan Report ---
CT head/brain wo con CLINICAL HISTORY: Strokelike symptoms COMPARISON STUDY: 09/17/2017 TECHNIQUE: Axial CT of the brain is performed from the vertex to the skull base. IV contrast was not administered for this examination. A dose lowering technique was utilized adhering to the principles of ALARA. CT DOSE: 614.27 mGy.cm FINDINGS: No intra or extra-axial mass lesions are visualized. There is no CT evidence of acute cortical infarc tion. There is no evidence of midline shift. There is no acute hemorrhage. No calvarial fractures ar e visualized. There are patchy white matter hypodensities likely on a small vessel basis. There is an old left cere bellar infarct There is no evidence of pathologic ventricular dilatation. There is right maxillary sinus mucosal thickening. There is an old right parietal silvano hole. IMPRESSION: No acute intracranial findings Electronically signed by: Lawson Troncoso M.D. 10/01/2018 2:55 PM
--- NOTE | 2018-10-01 15:12 | XRay Report ---
XR chest 1V portable CLINICAL HISTORY: hypotension dyspnea COMPARISON STUDY: 09/17/2017 FINDINGS: Prior median sternotomy and valve replacement. Chronic interstitial changes left lung base. Moderate prominence of the pulmonary vasculature. IMPRESSION: 1. Pulmonary vascular congestion. 2. Chronic and stable postoperative change. The above report was generated using voice recognition software. It may contain grammatical, syntax or spelling errors. Electronically signed by: Jered Gaona M.D. 10/01/2018 3:10 PM
[2018-10-01 15:38] LABS: Basophils # (auto) 0.01 K/uL (0-0.2); Basophils % (auto) 0.2 %; Eosinophils # (auto) 0.09 K/uL (0-0.5); Eosinophils % (auto) 1.5 %; Hematocrit (blood only) 31.9 % (37-47); Hemoglobin 10.5 g/dL (12.0-16.0); Immature Granulocytes # (auto) 0.02 K/uL (0.00-0.02); Immature Granulocytes % (auto) 0.3 %; Lymphocytes # (auto) 1.82 K/uL (1.2-3.4); Lymphocytes % (auto) 31.2 %; Mean Corpuscular Hgb Conc 32.9 g/dL (32-36); Mean Corpuscular Volume 82.4 fL (80-100); Mean Platelet Volume 10.4 fL (7.4-10.4); Monocytes # (auto) 0.35 K/uL (0.11-0.59); Neutrophils # (auto) 3.54 K/uL (1.4-6.5); Neutrophils % (auto) 60.8 %; Platelet Count 166 K/uL (130-400); RDW Coefficient of Variation 17.4 % (11.5-14.5); RDW Standard Deviation 52.7 fL (36.4-46.3); Red Blood Count 3.87 M/uL (4.2-5.4); White Blood Count 5.83 K/uL (4.8-10.8)
[2018-10-01 15:49] LABS: INR 1.1 (0.9-1.1); Partial Thromboplastin Time 27.4 Seconds (21.0-31.0); Prothrombin Time 11.3 Seconds (9.0-12.0)
[2018-10-01 15:55] LABS: Alanine Aminotransferase 17 U/L (12-78); Albumin Level 3.5 gm/dl (3.4-5.0); Aspartate Aminotransferase 13 U/L (15-37); BUN Creatinine Ratio 20.7 (10-20); Blood Urea Nitrogen 33 mg/dl (7-18); Calcium 8.5 mg/dl (8.5-10.1); Carbon Dioxide 28 mmol/L (21-32); Chloride 107 mmol/L (98-107); Creatinine Clr Calc Pharmacy 20.7 ml/min; Est GFR (African American) 33.7; Est GFR (Non-African American) 29.1; Glucose 92 mg/dl (70-99); Magnesium 1.9 mg/dl (1.8-2.4); Sodium 141 mmol/L (136-145)
[2018-10-01 16:00] LABS: Albumin Globulin Ratio 0.9 (0.9-2); Alkaline Phosphatase 92 U/L (45-117); Bilirubin,Total 0.4 mg/dl (0.2-1); Globulin 4.1 gm/dl (2.5-4.0); Total Protein 7.6 gm/dl (6.4-8.2); Troponin I < 0.015 ng/ml (0-0.045)
--- NOTE | 2018-10-01 16:22 | Pharmacy Report ---
ED Pharmacist Progress Note - ED Pharmacist Progress Note Date of Service:: October 01, 2018 Notes:: Received call from [facility]nera to remove penicillin allergy as patient has had testing and said not allergic to pcns. Penicillin allergy listed as severe, hives/sob, also has cephalosporins listed as adverse reaction, tongue swelling with keflex. Went to speak with patient herself and family members present. Patient said that she did have testing and had no reaction to the pencillin, this was also reiterated by family member. Patient says she has not had a penicillin since having this testing. Patient said she did not recall them mentioning allergies to cephalosporins. Again repeated that it was okay to have penicillins, informed them I would remove allergy from profile and they were in agreeance.
[2018-10-01 16:33] LABS: Appearance Urine Cloudy (Clear); Bacteria Urine Automated 2+ (Negative); Bilirubin Urine Negative (Negative); Blood Urine Negative (Negative); Color Urine Yellow; Glucose Urine UA Negative (Negative); Ketones Urine Negative (Negative); Leukocyte Esterase Urine 2+ (Negative); Nitrite Urine Negative (Negative); Protein Urine Negative (Negative); RBC Urine Automated 0-4 /hpf (0-4); Urobilinogen Urine Negative (Negative); WBC Urine Automated >30 /hpf (0-5)
[2018-10-01] MEDS ORDERED: DAPTOmycin 360 MG in SYRINGE 0 ML IV STA (16:44)
[2018-10-01] MEDS ORDERED: AZTREONAM 2,000 MG in DEXTROSE 5% 100 ML IV STA (16:44)
[2018-10-01] MEDS ORDERED: ERTAPENEM SODIUM 10 ML IV STA (16:59)
[2018-10-01] MEDS ORDERED: ERTAPENEM SODIUM 500 MG in SODIUM CHLORIDE 0.9% 50 ML IV ONE (17:15)
[2018-10-01] MEDS ORDERED: TIOTROPIUM BROMIDE 5 PUFF/90 MCG INH INH PRN (18:22)
[2018-10-01] MEDS ORDERED: CARBOHYDRATES FOR HYPOGLYCEMIA PO PRN (18:22)
[2018-10-01] MEDS ORDERED: GLUCAGON FOR INJ 1 MG VIAL SQ PRN (18:22)
[2018-10-01] MEDS ORDERED: DEXTROSE 50% 50 ML SYRINGE IV PRN (18:22)
[2018-10-01] MEDS ORDERED: GLUCOSE 40% GEL 15 GM TUBE PO PRN (18:22)
[2018-10-01] MEDS ORDERED: ACETAMINOPHEN 500 MG TAB PO PRN (18:22)
[2018-10-01] MEDS ORDERED: GLUCOSE 10 TABS/TUBE PO PRN (18:22)
[2018-10-01] MEDS ORDERED: HYDROCODONE/ACETAMOPHEN 5/325MG TAB PO PRN (18:22)
--- NOTE | 2018-10-01 19:27 | History & Physical Report ---
Date of Service October 01, 2018 Assessment & Plan (1) Syncope: Sounds mostly like a level of iatrogenic hypotension from her BP meds combined with some possible dehydration from being outside in the heat all morning. Neurologic causes such as stroke or seizure seem unlikely given no focal symptoms at any point and not a single symptom/sign of seizure. Cardiac causes such as arrhythmia or ND seem unlikely as well given her lack of symptoms, no events on telemetry (even while BP was low), and negative initial troponin. - Will trend troponins and EKGs - Now that pressure is normal, hold further IV fluids given her known CHF. - Monitor telemetry (2) COPD (chronic obstructive pulmonary disease): Patient reports some extra cough, but no sputum production and no additional shortness of breath from baseline. Does not COPD exacerbation criteria. - Will make DuoNebs standing overnight - If she makes any sputum, could consider sample and treat for mild COPD exacerbation (3) PAM (acute kidney injury): Baseline Cr ~1.3. Up to 1.6 on admission with BUN:Cr ratio >20, indicating prerenal. - IV fluids in the ED - Holding dose of ARB tonight & Lasix tomorrow morning - Monitor Cr (4) Asymptomatic bacteriuria: UA in the ED indicated bacteria; however, the patient's BP and mentation had returned to normal prior to any antibiotics given. Important note, she was actually *not* given daptomycin, aztreonam, or ertapenem in the ED. All were held. BP is normal at this time, and patient feels back to normal with family agreeing she is. Patient has no symptoms of suprapubic pain, fever, chills, dysuria, polyuria, etc. No objective signs of infection. - Hold all antibiotics. (5) Chronic combined systolic and diastolic CHF (congestive heart failure): Echo from 03/2017 shows EF 45-50%. Presently appears mild hypovolemic. - Continue heart failure regimen: beta-mike, Imdur, ARB, statin - Hold Lasix tomorrow for concern for hypovolemia (6) Paroxysmal atrial fibrillation: In atrially-paced rhythm on admission EKG. - Continue apixaban - Continue beta-mike (7) CAD (coronary artery disease): EKG shows new septal Q waves from priors, but no report of chest pain, negative troponin. - Continue ASA and heart regimen as above - Trend troponins & EKGs - Outpatient follow up for stress and/or further testing per patient's wishes (8) Hypertension: BP presently 150/65 after IV fluids in the ED. - Plan as above (9) Diabetes mellitus: A1c was 7.7% in 05/2018. - Continue home Lantus - Sliding scale insulin - Diabetic diet (10) DVT prophylaxis: Apixaban History of Present Illness Primary Care Provider: DAVID Palmer 83yo F w/ hx of HTN, DM, afib who presents with a syncopal episode at the [facility]. The family provides much of the history as the patient cannot recall the event. Per the family, she was in her normal state of health yesterday and in the morning. She spent the morning outside. The family reports that it was hot outside, though she was in the shade and had water nearby. In the afternoon at approx. 1:20pm, she reportedly told her grandson several times that she was very tired. At that point, she slouched to the left side, and was largely unresponsive for approx. 20 minutes. The family tried to wake her up, but couldn't get much more than mumbling from her. They called EMS who arrived within about 20 minutes. EMS was able to arouse her someone and took a blood pressure which was reported to be ~75/unk. By the time she was strapped to the gurney and being put into the ambulance, she had returned to mostly normal. Her grandson says that within the 10 minutes or so that she was being transported to the hospital, she went from saying single words to being back to normal and speaking in full sentences. The patient has no memory of this and reports that she feels fine at present. The family denies any tonic/clonic motions while this was all occurring. They deny any slurring of speech apart from when she was not conscious. They deny any bowel or bladder dysfunction. They deny tongue movements or jaw movement. Apart from slumping to the left, there was no other side affect more than the other. When she arrived in the ED, her BP was as low as 90/60. Her BP responded to fluids and she is now normotensive and back to her mental baseline. Allergies Allergy/AdvReac Type Severity Reaction Status Date / Time tamsulosin Allergy Severe SHORTNESS Verified 10/01/18 14:50 OF BREATH butalbital Allergy Intermediate SHORTNESS Verified 10/01/18 14:50 OF BREATH nitrofurantoin Allergy Unknown Verified 10/01/18 18:32 [From Macrobid] Cephalosporins AdvReac Severe TONGUE Verified 10/01/18 14:50 SWELLING WITH KEFLEX levetiracetam AdvReac Intermediate RASH Verified 10/01/18 14:50 morphine AdvReac Unknown hallucinati Verified 10/01/18 14:50 ons Sulfa (Sulfonamide AdvReac Unknown "SULFA Verified 10/01/18 14:50 Antibiotics) DRUGS" - UNKNOWN Home Medications Home Medications Medication Instructions Recorded Confirmed Type ipratropium-albuterol [Combivent 1 puff INHALATION QID PRN #0 05/08/14 10/01/18 History Respimat] lovastatin 40 mg PO QAM #0 05/08/14 10/01/18 History gabapentin 400 mg PO HS #0 02/07/17 10/01/18 History isosorbide mononitrate 30 mg PO QAM #0 02/07/17 10/01/18 History nortriptyline 20 mg PO HS #0 02/07/17 10/01/18 History calcium carbonate-vitamin D3 1 tab PO BID #0 03/20/17 10/01/18 History [Os-Emile 500 + D3] apixaban [Eliquis] 2.5 mg PO BID #0 04/07/17 10/01/18 History carvedilol [Coreg] 12.5 mg PO BID #0 tab 07/31/17 10/01/18 History furosemide [Lasix] 20 mg PO QAM #0 tab 07/31/17 10/01/18 History potassium chloride [Klor-Con] 20 meq PO QAM #0 tab 07/31/17 10/01/18 History valsartan 40 mg PO BID #0 tab 07/31/17 10/01/18 History acetaminophen 500 mg PO Q6H PRN #0 09/17/17 10/01/18 History guaifenesin [Mucinex] 600 mg PO Q12H #0 09/17/17 10/01/18 History hydrocodone-acetaminophen [[place]] 1 tab PO Q4 PRN #0 09/17/17 10/01/18 History insulin aspart U-100 [Novolog 5 unit SUBCUT QDB #0 09/17/17 10/01/18 History Flexpen U-100 Insulin] insulin glargine 15 unit SUBCUT HS #0 09/17/17 10/01/18 History ipratropium-albuterol 3 ml INHALATION QID PRN #0 09/17/17 10/01/18 History tiotropium bromide [Spiriva with 1 cap INHALATION QAM PRN #0 09/17/17 10/01/18 History HandiHaler] gabapentin 300 mg capsule 300 mg PO HS #30 cap 08/06/18 10/01/18 Rx aspirin 81 mg PO QAM 10/01/18 10/01/18 History ibuprofen 200 mg PO Q6H PRN 10/01/18 10/01/18 History pantoprazole [Protonix] 40 mg PO QAM 10/01/18 10/01/18 History Past Med/Surg History Medical History COPD (chronic obstructive pulmonary disease) Chronic combined systolic and diastolic CHF (congestive heart failure) Paroxysmal atrial fibrillation Cardiomyopathy Allergy to multiple antibiotics Cardiac pacemaker CAD (coronary artery disease) On anticoagulant therapy (Acute) Neuropathic pain (Acute) Insomnia (Acute) Hypertension (Acute) Dyslipidemia (Acute) Diabetic peripheral neuropathy (Acute) Diabetes mellitus (Acute) Congestive heart failure (Acute) Complete atrioventricular block (Acute) Chronic renal disease, stage III (Acute) Cerebellar infarct (Inactive) Depression (Inactive) 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) Gait instability (Inactive) History of chest pain (Inactive) Secondary hyperparathyroidism of renal origin (Inactive) Solitary pulmonary nodule (Inactive) Transient ischemic attack (TIA) (Inactive) Vitamin D deficiency (Inactive) Family History Other Family history non-contributory Social History Preferred Language: Irish Communication Ability: Effective Beliefs That Will Affect Care: None Current Living Situation: Alone Other Information That Helps Us Care for You: No Feels Safe at Home: Yes Safety Concerns: Feels Safe At This Time Smoking Status: Former smoker Hx Alcohol Use: No Hx Substance Use: No Review of Systems Review of Systems: All systems reviewed & are unremarkable except as noted in HPI & below Physical Exam Constitutional: WD/WN, vitals as above Eyes: EOM intact bilaterally; no conjunctival abnormality ENMT: external ear and nose normal, oropharynx normal Neck: trachea midline, no thyromegaly normal visual inspection Respiratory: normal respiratory effort, lungs clear to auscultation no respiratory distress Cardiovascular: RRR, no murmur, no edema Gastrointestinal (Abdomen): Inspection/Auscultation: abdomen normal to inspection; abdomen not distended Musculoskeletal: no cyanosis or clubbing, extremities motor strength 5/5 Skin: no rashes, warm and dry Neurologic: normal touch/pain/proprioception, moves all extremities and awake; no focal motor deficits, not confused and not obtunded Speech / Cognition: normal speech Psychiatric: Orientation: alert, oriented to person and cooperative Results & Data Vital Signs (Past 12 Hours) Vital Signs Temp Pulse Pulse Pulse Resp BP BP 10/01/18 19:02 156/65 H 10/01/18 18:35 36.5 C 65 20 180/68 H 10/01/18 17:00 61 22 10/01/18 16:02 62 18 10/01/18 15:52 67 19 10/01/18 15:32 61 10/01/18 15:21 60 20 10/01/18 15:06 10/01/18 14:31 36.6 C 63 16 93/43 L BP Pulse Ox 10/01/18 19:02 10/01/18 18:35 96 10/01/18 17:00 132/71 97 10/01/18 16:02 126/62 98 10/01/18 15:52 124/55 L 97 10/01/18 15:32 97/58 L 96 10/01/18 15:21 88/57 L 95 10/01/18 15:06 95 10/01/18 14:31 95 PG Care Time/CCT Total # of Minutes Spent Total Time Spent with Patient: Total time spent is greater than 50% in coordination of care (as documented) at patient's floor/unit and/or counseling patient:
[2018-10-01] MEDS: ALBUT/IPRATROP 3MG/0.5MG NEB 3 ML VIAL INH SCH (19:28)
[2018-10-01] MEDS: APIXABAN 2.5 MG TAB PO SCH (20:05)
[2018-10-01] MEDS: CARVEDILOL 12.5 MG TAB PO SCH (20:05)
[2018-10-01] MEDS: guaiFENesin 600 MG TABCR PO SCH (20:05)
[2018-10-01] MEDS: INSULIN ASPART 100 UNITS/ML 3 ML PEN SC SCH (20:33)
[2018-10-01] MEDS ORDERED: GABAPENTIN 400 MG CAP PO SCH (21:00)
[2018-10-01] MEDS ORDERED: INSULIN GLARGINE SOLOSTAR 100 UNITS/ML 3 ML PEN SQ SCH (21:00)
[2018-10-01] MEDS ORDERED: GABAPENTIN 300 MG CAP PO SCH (21:00)
[2018-10-01] MEDS ORDERED: NORTRIPTYLINE HCL 10 MG CAP PO SCH (21:00)
--- NOTE | 2018-10-01 23:24 | Emergency Department Note ---
Entered by Belen Calles acting as a scribe for Jose Sanders MD ED Provider Note CHIEF COMPLAINT: Hypotension HISTORY OF PRESENT ILLNESS: The patient is an 83 year old female with past medical history of COPD, paroxysmal atrial fibrillation, cardiomyopathy, CAD, hypertension, dyslipidemia, diabetes mellitus,who presents to the Emergency Room with complaints of an episode of hypotension that happened 2 hours ago. The grandson reports they were at a camp and had lunch outside. He notes the patient did not seem herself after that which was around 12:30. The grandson additionally notes the patient sounds more muffled and her speech is a little slurred. The patient reports she has history of heart attacks and open heart surgery. She notes she slipped and broke her foot 2 weeks ago when she was throwing out the trash. The patient reports she does not feel sick, lightheaded or dizzy. She states she usually drinks a lot of water. Per EMS: The patient was camping at the [facility] and when her family came back to the camp, the patient was not responsive. The patient had some slurred speech around an hour ago. Once EMS moved her to the ambulance, she was awake, alert and oriented and did not have a slurred speech. The patient was hypotensive but she states her blood pressure fluctuates. The patient was drooling. Pt denies LOC, headache, fevers, chills, diaphoresis, visual changes, neck pain, chest pain, breathing difficulties, nausea, vomiting, abdominal pain, back pain, melena, hematochezia, urinary symptoms, numbness, weakness, lymphadenopathy, rash, or other complaints. REVIEW OF SYSTEMS: See HPI for pertinent positives and negatives. A total of ten systems were reviewed and were otherwise negative. PMHx/PSHx: COPD Paroxysmal atrial fibrillation Cardiomyopathy CAD Hypertension Dyslipidemia Diabetes mellitus CHF Chronic renal disease, stage III SOCIAL HISTORY: Patient lives at home. PHYSICAL EXAM: GENERAL: Awake, alert, well-appearing, in no distress HENT: Normocephalic, atraumatic. Oropharynx unremarkable. EYES: PERRL. Normal conjunctiva. Sclera non-icteric. NECK: Inspection normal. Non-tender. Supple. No nuchal rigidity. FROM. No masses. RESPIRATORY: Clear to auscultation. No wheezes. No rales. Normal respiratory effort. CARDIAC: Normal rate. Normal rhythm. No murmurs. No rubs. Extremities warm and well perfused. Pulses equal. No JVD. GI: Soft, non-distended. No tenderness to palpation. No rebound or guarding. No masses. RECTAL: Deferred. MUSCULOSKELETAL: Atraumatic. Chest examination reveals no tenderness. The back is symmetrical on inspection without obvious abnormality. There is no CVA tenderness to palpation. No joint edema. LOWER EXTREMITIES: Calves are equal size bilaterally and non-tender. No edema. No discoloration. NEURO: Normal sensorium. No sensory or motor deficits noted. Normal rapid alternating movements, no drift. Normal heel to ordonez. Cranial nerves intact. Speech is thick but otherwise normal. SKIN: No rash or jaundice noted. EMERGENCY DEPARTMENT COURSE: 1425: Past medical records reviewed. The patient was evaluated in room B3B, and a complete history and physical examination were performed. 1647: Upon reevaluation, the patient is resting comfortably. I discussed laboratory and radiographic results with the patient and family. They verbalized agreement of the treatment plan. The patient will be evaluated for further management and care. 1650: I discussed the patient's case with Dr. Matias, [facility] Hospitalist. He will evaluate the patient for further management. 1658: I spoke with pharmacy and they confirmed the patient has taken ertapenem in the past and did well. I changed the antibiotics. MEDICAL DECISION MAKING: B3 Prior records/ancillary studies reviewed. Nursing notes reviewed and agree them. Additional history obtained from family. The patient's history was concerning for hypotension and altered mental status. Differential diagnosis: Etiologies such as metabolic, infection, hypo/hyperglycemia, electrolyte abnormalities, cardiac sources, intracerebral event, toxicologic, neurologic, CVA, TIA, as well as others were entertained. Physical examination: As above. Slight thickening of her speech otherwise there was no focal findings. ER treatment provided: IV Lock Normal saline bolus 500 mL and then 50 mL an hour IV. On reassessment the patient felt better. IV ertapenem after discussion with pharmacy and microbiology. Prior culture results reveal a somewhat resistant Proteus UTI this year. Diagnostics interpretation by me: ECG: No ischemic change noted. There was a paced rhythm. The labs revealed an unremarkable CBC except for mild anemia. Coags negative. Creatinine is slightly above normal at 1.6. This is concerning for infection. Imaging studies: CT scan of the head was negative for acute disease. Chest imaging was performed and shows mild pulmonary vascular congestion otherwise no other acute process. Consultation: A consultation was placed with the hospitalist. The case was discussed and diagnostics were reviewed. The patient was evaluated in the ER for further treatment. IMPRESSION: Hypotension Altered mental status UTI PLAN: Admit The scribe's documentation has been prepared under my direction and personally reviewed by me in its entirety. I confirm that the note above accurately reflects all work, treatment, procedures, and medical decision making performed by me. Impression & Plan Hypotension, Altered mental status, UTI (urinary tract infection) Past Med/Surg History Family History Other Family history non-contributory Social History Preferred Language: Kazakh Communication Ability: Effective Beliefs That Will Affect Care: None Current Living Situation: Alone Other Information That Helps Us Care for You: No Feels Safe at Home: Yes Safety Concerns: Feels Safe At This Time Smoking Status: Former smoker Hx Alcohol Use: No Hx Substance Use: No Results & Data Vital Signs Vital Signs - 24 hr 10/01/18 14:31 10/01/18 15:06 10/01/18 15:21 Temperature 36.6 C Temperature Source Oral Sepsis Recent Fever Within 48 Hours No Sepsis New/Unexplained Change in Mental Status No Sepsis Action Taken by Nursing No Action Required Pulse Rate 63 Pulse Rate [Apical] 60 Respiratory Rate 16 20 Respiratory Effort / Characteristics Non-Labored Spontaneous Respiratory Depth Normal Respiratory Pattern Regular Blood Pressure 93/43 L Blood Pressure [Right Arm] 88/57 L Blood Pressure Mean 59 Blood Pressure Mean [Right Arm] 67 Blood Pressure Position [Right Arm] Sitting Pulse Oximetry 95 95 95 Oxygen Delivery Method Room Air Room Air Room Air 10/01/18 15:32 10/01/18 15:52 10/01/18 16:02 Temperature Temperature Source Sepsis Recent Fever Within 48 Hours Sepsis New/Unexplained Change in Mental Status Sepsis Action Taken by Nursing Pulse Rate Pulse Rate [Apical] 61 67 62 Respiratory Rate 19 18 Respiratory Effort / Characteristics Non-Labored Non-Labored Spontaneous Respiratory Depth Normal Normal Respiratory Pattern Regular Regular Blood Pressure Blood Pressure [Right Arm] 97/58 L 124/55 L 126/62 Blood Pressure Mean Blood Pressure Mean [Right Arm] 71 78 83 Blood Pressure Position [Right Arm] Sitting Sitting Pulse Oximetry 96 97 98 Oxygen Delivery Method Room Air Room Air Room Air 10/01/18 16:58 10/01/18 17:00 Temperature Temperature Source Sepsis Recent Fever Within 48 Hours Sepsis New/Unexplained Change in Mental Status Sepsis Action Taken by Nursing Pulse Rate Pulse Rate [Apical] 61 Respiratory Rate 22 Respiratory Effort / Characteristics Non-Labored Spontaneous Respiratory Depth Normal Respiratory Pattern Regular Regular Blood Pressure Blood Pressure [Right Arm] 132/71 Blood Pressure Mean Blood Pressure Mean [Right Arm] 91 Blood Pressure Position [Right Arm] Pulse Oximetry 97 Oxygen Delivery Method Room Air Room Air Home Medications Current Medication List: was personally reviewed by me Laboratory Data Attestation: I reviewed the patient's lab results. Result diagrams: 10/01/18 15:23 10/01/18 15:23 Lab Results 10/01/18 10/01/18 10/01/18 Range/Units 15:23 15:23 15:23 WBC 5.83 (4.8-10.8) K/uL RBC 3.87 L (4.2-5.4) M/uL Hgb 10.5 L (12.0-16.0) g/dL Hct 31.9 L (37-47) % MCV 82.4 (80-100) fL MCH 27.1 (25-34) pg MCHC 32.9 (32-36) g/dL RDW Std Deviation 52.7 H (36.4-46.3) fL RDW Coeff of Carlos 17.4 H (11.5-14.5) % Plt Count 166 (130-400) K/uL MPV 10.4 (7.4-10.4) fL Immature Gran % (Auto) 0.3 % Neut % (Auto) 60.8 % Lymph % (Auto) 31.2 % Waller % (Auto) 6.0 % Eos % (Auto) 1.5 % Baso % (Auto) 0.2 % Immature Gran # (Auto) 0.02 (0.00-0.02) K/uL Neut # (Auto) 3.54 (1.4-6.5) K/uL Lymph # (Auto) 1.82 (1.2-3.4) K/uL Waller # (Auto) 0.35 (0.11-0.59) K/uL Eos # (Auto) 0.09 (0-0.5) K/uL Baso # (Auto) 0.01 (0-0.2) K/uL PT 11.3 (9.0-12.0) Seconds INR 1.1 (0.9-1.1) APTT 27.4 (21.0-31.0) Seconds PTT Ratio 1.0 Sodium 141 (136-145) mmol/L Potassium 4.0 (3.5-5.1) mmol/L Chloride 107 (98-107) mmol/L Carbon Dioxide 28 (21-32) mmol/L Anion Gap 6.0 (3-11) BUN 33 H (7-18) mg/dl Creatinine 1.60 H (0.6-1.2) mg/dl Est Cr Clr Drug Dosing 20.7 ml/min Est GFR ( Amer) 33.7 Est GFR (Non-Af Amer) 29.1 BUN/Creatinine Ratio 20.7 H (10-20) Glucose 92 (70-99) mg/dl Calcium 8.5 (8.5-10.1) mg/dl Magnesium 1.9 (1.8-2.4) mg/dl Total Bilirubin 0.4 (0.2-1) mg/dl AST 13 L (15-37) U/L ALT 17 (12-78) U/L Alkaline Phosphatase 92 (45-117) U/L Troponin I < 0.015 (0-0.045) ng/ml Total Protein 7.6 (6.4-8.2) gm/dl Albumin 3.5 (3.4-5.0) gm/dl Globulin 4.1 H (2.5-4.0) gm/dl Albumin/Globulin Ratio 0.9 (0.9-2) Urine Color Urine Appearance (Clear) Urine pH (4.5-7.5) Ur Specific [place] (1.000-1.030) Urine Protein (Negative) Urine Glucose (UA) (Negative) Urine Ketones (Negative) Urine Blood (Negative) Urine Nitrite (Negative) Urine Bilirubin (Negative) Urine Urobilinogen (Negative) Ur Leukocyte Esterase (Negative) Urine WBC (Auto) (0-5) /hpf Urine RBC (Auto) (0-4) /hpf U Hyaline Cast (Auto) (0-5) /lpf U Epithel Cells (Auto) (0-5) /lpf Urine Bacteria (Auto) (Negative) 10/01/18 Range/Units 16:15 WBC (4.8-10.8) K/uL RBC (4.2-5.4) M/uL Hgb (12.0-16.0) g/dL Hct (37-47) % MCV (80-100) fL MCH (25-34) pg MCHC (32-36) g/dL RDW Std Deviation (36.4-46.3) fL RDW Coeff of Carlos (11.5-14.5) % Plt Count (130-400) K/uL MPV (7.4-10.4) fL Immature Gran % (Auto) % Neut % (Auto) % Lymph % (Auto) % Waller % (Auto) % Eos % (Auto) % Baso % (Auto) % Immature Gran # (Auto) (0.00-0.02) K/uL Neut # (Auto) (1.4-6.5) K/uL Lymph # (Auto) (1.2-3.4) K/uL Waller # (Auto) (0.11-0.59) K/uL Eos # (Auto) (0-0.5) K/uL Baso # (Auto) (0-0.2) K/uL PT (9.0-12.0) Seconds INR (0.9-1.1) APTT (21.0-31.0) Seconds PTT Ratio Sodium (136-145) mmol/L Potassium (3.5-5.1) mmol/L Chloride (98-107) mmol/L Carbon Dioxide (21-32) mmol/L Anion Gap (3-11) BUN (7-18) mg/dl Creatinine (0.6-1.2) mg/dl Est Cr Clr Drug Dosing ml/min Est GFR ( Amer) Est GFR (Non-Af Amer) BUN/Creatinine Ratio (10-20) Glucose (70-99) mg/dl Calcium (8.5-10.1) mg/dl Magnesium (1.8-2.4) mg/dl Total Bilirubin (0.2-1) mg/dl AST (15-37) U/L ALT (12-78) U/L Alkaline Phosphatase (45-117) U/L Troponin I (0-0.045) ng/ml Total Protein (6.4-8.2) gm/dl Albumin (3.4-5.0) gm/dl Globulin (2.5-4.0) gm/dl Albumin/Globulin Ratio (0.9-2) Urine Color Yellow Urine Appearance Cloudy A (Clear) Urine pH 7.0 (4.5-7.5) Ur Specific [place] 1.010 (1.000-1.030) Urine Protein Negative (Negative) Urine Glucose (UA) Negative (Negative) Urine Ketones Negative (Negative) Urine Blood Negative (Negative) Urine Nitrite Negative (Negative) Urine Bilirubin Negative (Negative) Urine Urobilinogen Negative (Negative) Ur Leukocyte Esterase 2+ H (Negative) Urine WBC (Auto) >30 H (0-5) /hpf Urine RBC (Auto) 0-4 (0-4) /hpf U Hyaline Cast (Auto) 1-5 (0-5) /lpf U Epithel Cells (Auto) 10-20 H (0-5) /lpf Urine Bacteria (Auto) 2+ H (Negative) Administered Medications Albuterol (Duoneb) 3 ml INH QIDR TAMMIE Stop: 10/31/18 18:59 Last Admin: 10/01/18 19:28 Dose: 3 ml Documented by: [id number] Apixaban (Eliquis) 2.5 mg PO BID [facility] Stop: 10/31/18 20:59 Last Admin: 10/01/18 20:05 Dose: 2.5 mg Documented by: [id number] Carvedilol (Coreg) 12.5 mg PO BID [facility] Stop: 10/31/18 20:59 Last Admin: 10/01/18 20:05 Dose: 12.5 mg Documented by: [id number] Gabapentin (Neurontin) 400 mg PO [facility] Stop: 10/31/18 20:59 Last Admin: 10/01/18 20:05 Dose: 400 mg Documented by: [id number] Gabapentin (Neurontin) 300 mg PO [facility] Stop: 10/31/18 20:59 Last Admin: 10/01/18 20:05 Dose: 300 mg Documented by: [id number] Guaifenesin (Mucinex) 600 mg PO Q12H [facility] Stop: 10/31/18 18:21 Last Admin: 10/01/18 20:05 Dose: 600 mg Documented by: [id number] Insulin Aspart (Novolog Flexpen) 0 units SC ACHS TAMMIE Stop: 10/31/18 20:59 Last Admin: 10/01/18 20:33 Dose: 1 units Documented by: [id number] Cosigned by: [id number] Insulin Glargine (Lantus Solostar Pen) 15 units SQ HS [facility] Stop: 10/31/18 20:59 Last Admin: 10/01/18 20:33 Dose: 15 units Documented by: [id number] Cosigned by: [id number] Nortriptyline HCl (Pamelor) 20 mg PO HS [facility] Stop: 10/31/18 20:59 Last Admin: 10/01/18 20:05 Dose: 20 mg Documented by: [id number] Discontinued Medications Sodium Chloride (Nss 1000ml) 1,000 mls @ 50 mls/hr IV .Q20H [facility] Stop: 10/31/18 14:44 Last Admin: 10/01/18 16:41 Dose: Not Given Documented by: [id number] Sodium Chloride (Nss 1000ml) 500 mls @ 999 mls/hr IV .Q31M ONE Stop: 10/01/18 15:09 Last Infusion: 10/01/18 15:53 Dose: 0 mls/hr Documented by: [id number] Admin: 10/01/18 15:21 Dose: 999 mls/hr Documented by: [id number] Aztreonam 2,000 mg/ Dextrose 110 mls @ 100 mls/hr IV NOW STA; Protocol Stop: 10/01/18 17:49 Last Admin: 10/01/18 19:11 Dose: Not Given Documented by: [id number] Daptomycin 360 mg/ Syringe 7.2 mls @ 5 mls/min IV NOW STA; Protocol Stop: 10/01/18 16:45 Last Admin: 10/01/18 19:11 Dose: Not Given Documented by: [id number] Ertapenem (Invanz) 10 mls @ 2 mls/min IV NOW STA Stop: 10/01/18 17:03 Last Admin: 10/01/18 17:28 Dose: Not Given Documented by: [id number] Ertapenem 500 mg/ Sodium (Chloride) 55 mls @ 110 mls/hr IV NOW ONE Stop: 10/01/18 17:44 Last Admin: 10/01/18 17:29 Dose: Not Given Documented by: [id number] Imaging Data Radiologist's Impression: Radiology results as stated below per my review and the radiologist's interpretation: CT head/brain wo con CLINICAL HISTORY: Strokelike symptoms COMPARISON STUDY: 09/17/2017 TECHNIQUE: Axial CT of the brain is performed from the vertex to the skull base. IV contrast was not administered for this examination. A dose lowering technique was utilized adhering to the principles of ALARA. CT DOSE: 614.27 mGy.cm FINDINGS: No intra or extra-axial mass lesions are visualized. There is no CT evidence of acute cortical infarction. There is no evidence of midline shift. There is no acute hemorrhage. No calvarial fractures are visualized. There are patchy white matter hypodensities likely on a small vessel basis. 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 There is right maxillary sinus mucosal thickening. There is an old right parietal silvano hole. IMPRESSION: No acute intracranial findings Electronically signed by: Lawson Troncoso M.D. 10/01/2018 2:55 PM XR chest 1V portable CLINICAL HISTORY: hypotension dyspnea COMPARISON STUDY: 09/17/2017 FINDINGS: Prior median sternotomy and valve replacement. Chronic interstitial changes left lung base. Moderate prominence of the pulmonary vasculature. IMPRESSION: 1. Pulmonary vascular congestion. 2. Chronic and stable postoperative change. The above report was generated using voice recognition software. It may contain grammatical, syntax or spelling errors. Electronically signed by: Jered Gaona M.D. 10/01/2018 3:10 PM ECG Data Attestation: I personally reviewed and interpreted this ECG as follows: Indication: other (hypotension) Rate (beats per minute): 62 Rhythm: other (Atrial paced rhythm ) Findings: + other (Anteroseptal Q wave), + T-wave inversion (lateral) and + left axis deviation; no ST elevation Comparison ECG Date: from (09/17/2017) Change: the following changes noted (Paced rhythm has replaced sinus rhythm ) Blood Pressure Blood Pressure Findings: Normal blood pressure Blood Pressure Disposition: did not require urgent referral Discharge Plan Visit Data *Final* Discharge Date/Time: 10/01/18 18:09 Chief Complaint: Hypotension ED Provider: Jose Sanders Discharge Problem: Hypotension, Altered mental status, UTI (urinary tract infection) Patient Disposition: Admitted As Inpatient Discharge Instructions Interventions: ED Discharge Assessment Last Done: 10/01/18 18:09 Discharge Problem: Hypotension Qualifiers: Hypotension type: unspecified hypotension type Qualified Code(s): I95.9 - Hypotension, unspecified Altered mental status Qualifiers: Altered mental status type: unspecified Qualified Code(s): R41.82 - Altered mental status, unspecified UTI (urinary tract infection) Qualifiers: Urinary tract infection type: site unspecified Hematuria presence: without hematuria Qualified Code(s): N39.0 - Urinary tract infection, site not specified The scribe's documentation has been prepared under my direction and personally reviewed by me in its entirety. I confirm that the note above accurately reflects all work, treatment, procedures, and medical decision making performed by me.
[2018-10-02 05:26] LABS: Hematocrit (blood only) 31.7 % (37-47); Hemoglobin 10.1 g/dL (12.0-16.0); Mean Corpuscular Hgb Conc 31.9 g/dL (32-36); Mean Platelet Volume 10.2 fL (7.4-10.4); Platelet Count 158 K/uL (130-400); RDW Coefficient of Variation 17.3 % (11.5-14.5); RDW Standard Deviation 52.3 fL (36.4-46.3); Red Blood Count 3.82 M/uL (4.2-5.4); White Blood Count 6.33 K/uL (4.8-10.8)
[2018-10-02] MEDS: guaiFENesin 600 MG TABCR PO SCH (05:32)
[2018-10-02 05:57] LABS: Blood Urea Nitrogen 30 mg/dl (7-18); Calcium 8.9 mg/dl (8.5-10.1); Carbon Dioxide 28 mmol/L (21-32); Chloride 108 mmol/L (98-107); Creatinine Clr Calc Pharmacy 22.3 ml/min; Glucose 115 mg/dl (70-99); Potassium 3.9 mmol/L (3.5-5.1); Sodium 142 mmol/L (136-145)
[2018-10-02 06:02] LABS: Troponin I < 0.015 ng/ml (0-0.045)
[2018-10-02] MEDS: ALBUT/IPRATROP 3MG/0.5MG NEB 3 ML VIAL INH SCH ×2 (07:14→11:03)
[2018-10-02] MEDS: CARVEDILOL 12.5 MG TAB PO SCH (07:57)
[2018-10-02] MEDS: APIXABAN 2.5 MG TAB PO SCH (07:58)
[2018-10-02] MEDS: INSULIN ASPART 100 UNITS/ML 3 ML PEN SC SCH ×2 (08:02→12:09)
[2018-10-02] MEDS ORDERED: LOVASTATIN 20 MG TAB PO SCH (09:00)
[2018-10-02] MEDS ORDERED: ISOSORBIDE MONO EXTENDED REL 30 MG TABCR PO SCH (09:00)
[2018-10-02] MEDS ORDERED: VALSARTAN 80 MG TAB PO SCH (09:00)
[2018-10-02] MEDS ORDERED: PANTOprazole 40 MG TAB PO SCH (09:00)
[2018-10-02] MEDS ORDERED: ASPIRIN 81 MG ECTAB PO SCH (09:00)
--- NOTE | 2018-10-02 12:44 | Discharge Summary ---
Date of Service October 02, 2018 Admission HPI Per Admitting Provider 83yo F w/ hx of HTN, DM, afib who presents with a syncopal episode at the [facility]. The family provides much of the history as the patient cannot recall the event. Per the family, she was in her normal state of health yesterday and in the morning. She spent the morning outside. The family reports that it was hot outside, though she was in the shade and had water nearby. In the afternoon at approx. 1:20pm, she reportedly told her grandson several times that she was very tired. At that point, she slouched to the left side, and was largely unresponsive for approx. 20 minutes. The family tried to wake her up, but couldn't get much more than mumbling from her. They called EMS who arrived within about 20 minutes. EMS was able to arouse her someone and took a blood pressure which was reported to be ~75/unk. By the time she was strapped to the gurney and being put into the ambulance, she had returned to mostly normal. Her grandson says that within the 10 minutes or so that she was being transported to the hospital, she went from saying single words to being back to normal and speaking in full sentences. The patient has no memory of this and reports that she feels fine at present. The family denies any tonic/clonic motions while this was all occurring. They deny any slurring of speech apart from when she was not conscious. They deny any bowel or bladder dysfunction. They deny tongue movements or jaw movement. Apart from slumping to the left, there was no other side affect more than the other. When she arrived in the ED, her BP was as low as 90/60. Her BP responded to fluids and she is now normotensive and back to her mental baseline. Principal Diagnosis syncope Discharge Exam Constitutional WD/WN, vitals as above Eyes PERRL, conjunctivae normal, anicteric sclerae ENMT external ear and nose normal, oropharynx normal Respiratory normal respiratory effort, lungs clear to auscultation Cardiovascular RRR, no murmur, no edema Gastrointestinal (Abdomen) normal bowel sounds, soft, nontender, no hepatosplenomegaly Skin no rashes, warm and dry Psychiatric A+Ox3, euthymic affect Discharge Data Allergies Allergy/AdvReac Type Severity Reaction Status Date / Time tamsulosin Allergy Severe SHORTNESS Verified 10/01/18 14:50 OF BREATH butalbital Allergy Intermediate SHORTNESS Verified 10/01/18 14:50 OF BREATH nitrofurantoin Allergy Unknown Verified 10/01/18 18:32 [From Macrobid] Cephalosporins AdvReac Severe TONGUE Verified 10/01/18 14:50 SWELLING WITH KEFLEX levetiracetam AdvReac Intermediate RASH Verified 10/01/18 14:50 morphine AdvReac Unknown hallucinati Verified 10/01/18 14:50 ons Sulfa (Sulfonamide AdvReac Unknown "SULFA Verified 10/01/18 14:50 Antibiotics) DRUGS" - UNKNOWN Ordered Studies 10/01/18 14:40 CT head/brain wo con Stat Hospital Course (1) Syncope: Syncope -Kassy's syncopal episode was likely a combination of [place] and hypotension from her BP medication regimen. Pt was back at baseline in ambulance transport to hospital and for entire admission here. From talking with family and pt, neurologic causes such as stroke or seizure seemed unlikely given no focal symptoms at any point and no s/s of seizure activity. Cardiac causes such as arrhythmia or [place] also seemed unlikely given story, lack of symptoms. There were no events on telemetry (even while BP was low), and troponins were negative. EKG's showed NSR with LBBB, which is not new for pt. Recommended to pt to consume 60 oz fluids per day, with consideration of her CHF history. PAM -Baseline Cr ~1.3. Up to 1.6 on admission with BUN:Cr ratio >20, indicating prerenal, which supports syncopal reasoning as noted above. -Pt given IVF in ED -Lasix held Asymptomatic bacteriuria -Pt's UA in the ED indicated bacteria; however, the patient's BP and mentation had returned to normal, and no antibiotics were given during stay here. Patient had no symptoms of suprapubic pain, fever, chills, dysuria, polyuria, etc, and had no objective signs of infection Chronic combined systolic and diastolic CHF -Echo from 03/2017 shows EF 45-50%. Pt appeared mildly hypovolemic on admit -We continued her heart failure regimen: beta-mike, Imdur, ARB, but held Lasix Paroxysmal atrial fibrillation -Pt in atrially-paced rhythm on admission EKG - Continued apixaban and beta-mike CAD -EKG showed new septal Q waves from priors, but no report of chest pain, negative troponin. May want to consider outpt stress f/u - Continued ASA and heart regimen as above Diabetes mellitus -A1c was 7.7% in 05/2018 -We continued home Lantus and put on SSI At time of d/c, pt had no other acute concerns or complaints. Total Time Total Time Spent Total Time Spent (In Minutes): 30 Discharge Plan Discharge Items Patient Disposition: Home - Self-Care Reason For Visit: SYNCOPE,HYPOTENSION Discharge Diagnosis: syncope Discharge Goals: Improve function Activity: Per 'Additional Instructions' section Non-emergency contact: Primary Care Provider Call non-emergency contact if: you have any medication questions and your symptoms worsen Follow-up/Referrals: Crystal Mcguire CRNP [Primary Care Provider] - Diet: Regular Addtl Provider Instructions: You were admitted with concerns of syncope. We got imaging of your head and it was all normal. Your syncope was likely from a combination of you having a low blood pressure (perhaps from taking your BP meds) and being dehydrated from being at [facility] and not consuming enough liquids. This is why you felt lightheaded and [place]. Please follow the below instructions on discharge: -Follow up with your PCP within one week of discharge -Try to consume at least 60 oz of water per day. Given your history of heart failure, we do not want to give you too many fluids and this amount seems to be the sweet spot that will prevent your from being dehydrated and managing your heart failure -If your symptoms persist/worsen, then please see your PCP for further work up. Your syncopal symptoms were unlikely to be from any neuro or cardiac causes based on your workup here Prescriptions: Continued lovastatin 40 mg Tablet 40 mg PO QAM Qty: 0 RF: 0 Combivent Respimat 20-100 mcg/actuation Mist 1 puff INHALATION QID PRN (Reason: Wheezing) Qty: 0 RF: 0 isosorbide mononitrate 30 mg Tablet Extended Release 24 Hr 30 mg PO QAM Qty: 0 RF: 0 gabapentin 400 mg Capsule 400 mg PO HS Qty: 0 RF: 0 nortriptyline 10 mg Capsule 20 mg PO HS Qty: 0 RF: 0 calcium carbonate-vitamin D3 [Os-Emile 500 + D3] 500 mg(1,250mg) -200 unit Tablet 1 tab PO BID Qty: 0 RF: 0 Eliquis 2.5 mg Tablet 2.5 mg PO BID Qty: 0 RF: 0 carvedilol [Coreg] 12.5 mg Tablet 12.5 mg PO BID Qty: 0 RF: 0 potassium chloride [Klor-Con] 20 mEq Packet 20 meq PO QAM Qty: 0 RF: 0 furosemide [Lasix] 20 mg Tablet 20 mg PO QAM Qty: 0 RF: 0 valsartan 40 mg Tablet 40 mg PO BID Qty: 0 RF: 0 ipratropium-albuterol 0.5 mg-3 mg(2.5 mg base)/3 mL Solution For Nebulization 3 ml INHALATION QID PRN (Reason: Wheezing) Qty: 0 RF: 0 insulin glargine 100 unit/mL Solution 15 unit SUBCUT HS Qty: 0 RF: 0 hydrocodone-acetaminophen [Roselle] 5-325 mg Tablet 1 tab PO Q4 PRN (Reason: Pain) Qty: 0 RF: 0 acetaminophen 500 mg Tablet 500 mg PO Q6H PRN (Reason: Pain) Qty: 0 RF: 0 Novolog Flexpen U-100 Insulin 100 unit/mL Insulin Pen 5 unit SUBCUT QDB Qty: 0 RF: 0 Spiriva with HandiHaler 18 mcg Capsule, W/Inhalation Device 1 cap INHALATION QAM PRN (Reason: Shortness Of Breath Or Wheezing) Qty: 0 RF: 0 guaifenesin [Mucinex] 600 mg Tablet Extended Release 12hr 600 mg PO Q12H Qty: 0 RF: 0 gabapentin 300 mg capsule 300 mg PO HS Qty: 30 RF: 5 aspirin 81 mg Tablet,Delayed Release (Dr/Ec) 81 mg PO QAM RF: 0 ibuprofen 200 mg Tablet 200 mg PO Q6H PRN (Reason: Pain) RF: 0 pantoprazole [Protonix] 40 mg tablet,delayed release (DR/EC) 40 mg PO QAM RF: 0 Stand-Alone Forms: [facility]/Other Patient Handouts: Syncope, Dehydration Discharge Orders: Discharge Order (Routine); Ordered 10/02/18 Ordered By: Erasmo Ruth Admission Data Admit Date/Time: 10/01/18 17:35 Attending Provider: Latrell Olvera Admit Provider: Gal Matias Primary Care Provider: Crystal Mcguire Other Providers: Gal Matias Service: Telemetry Medical Other Interventions: Discharge Summary Assessment (RN) Last Done: 10/02/18 13:26 DC Date/Time DO NOT enter until pt leaves facility: 10/02/18 14:15 Supervising Physician Co-Signing Physician Notes I personally examined the patient and verified all godinez points of history and exam, discussed case, and agree with decision making with Dr Ruth. Feeling normal. Would like to go home. No further complaints. Does note that whenever she had a prolonged episode of poor responsiveness, her family had her sitting up. Vitals noted, in general she is awake and alert pleasant no distress. HEENT normocephalic atraumatic mucous members are moist. Breathing unlabored no accessory muscle use good effort. Skin shows no rashes no pallor or icterus. Syncopeappears to have been dehydration/orthostasis related to poor oral intake and her blood pressure meds, combined with the heat at the [facility]. Now improved with IV fluids, creatinine is improving. Discussed delicate balance of ensuring that she drinks enough, but obviously avoiding pulmonary edema with her CKD and CHF. Stable for discharge to home. (Of note her prolonged period of poor responsiveness appears to have been due to her low blood pressure and her family having her sitting up rather than lying flat) Resident Activity Tracking Resident Involvement: Resident Care Provided Care Provided: Adult Hospital Medicine
== END 2018-10-02 14:15 | disposition home or self-care (01) | DRG 923 ==
LOC: ED 14:22 → 2N 17:35 → SUATTDRO 17:35 → 2N 18:09

== ENCOUNTER 2019-11-27 18:16 | Observation (INO) ==
[2019-11-27] MEDS ORDERED: SODIUM CHLORIDE 0.9% 500 ML IV ONE (18:51)
--- NOTE | 2019-11-27 19:31 | XRay Report ---
XR chest 1V portable CLINICAL HISTORY: trauma PAIN COMPARISON STUDY: 11/05/2019 FINDINGS: There are postsurgical changes of midline sternotomy and valvular replacement. 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 There is mild chronic interstitial thickening/e elijah. There is no focal pulmonary consolidation. There are no significant pleural effusions. There is no pneumothorax.[ IMPRESSION: No active disease in the chest. ACT 112: Negative or not required by law. Electronically signed by: Lawson Troncoso M.D. 11/27/2019 7:29 PM
--- NOTE | 2019-11-27 19:32 | XRay Report ---
XR hip RT 2V w pelvis CLINICAL HISTORY: Right hip pain status post trauma COMPARISON: 07/31/2017 DISCUSSION: There is a total right hip arthroplasty. No acute fractures or dislocations are visualize d. There are postsurgical changes of left hip pinning with 3 cannulated femoral neck screws. There is no SI joint diastases. There is no symphysis diastases. IMPRESSION: Postsurgical changes. No acute fractures or dislocations identified ACT 112: Negative or not required by law. Electronically signed by: Lawson Troncoso M.D. 11/27/2019 7:31 PM
[2019-11-27 19:36] LABS: Basophils # (auto) 0.01 K/uL (0-0.2); Basophils % (auto) 0.1 %; Eosinophils # (auto) 0.13 K/uL (0-0.5); Eosinophils % (auto) 1.8 %; Hemoglobin 10.1 g/dL (12.0-16.0); Immature Granulocytes # (auto) 0.02 K/uL (0.00-0.02); Immature Granulocytes % (auto) 0.3 %; Lymphocytes # (auto) 1.52 K/uL (1.2-3.4); Lymphocytes % (auto) 21.2 %; Mean Corpuscular Hgb Conc 30.6 g/dL (32-36); Mean Corpuscular Volume 84.8 fL (80-100); Mean Platelet Volume 11.1 fL (7.4-10.4); Monocytes # (auto) 0.33 K/uL (0.11-0.59); Monocytes % (auto) 4.6 %; Neutrophils # (auto) 5.15 K/uL (1.4-6.5); Platelet Count 185 K/uL (130-400); RDW Coefficient of Variation 17.3 % (11.5-14.5); RDW Standard Deviation 53.6 fL (36.4-46.3); Red Blood Count 3.89 M/uL (4.2-5.4); White Blood Count 7.16 K/uL (4.8-10.8)
--- NOTE | 2019-11-27 19:50 | Emergency Department Note ---
History of Present Illness General Chief complaint: Fall Stated complaint: FALL, UNABLE TO WALK Time Seen by Provider: 11/27/19 18:46 Source: patient Mode of arrival: ambulatory Limitations: no limitations History of Present Illness Provider complaint: Fall, right hip pain Onset (ago): day(s) 4 Location: hip Radiation: extremity Severity: moderate Pain Consistency: + constant Maximum Pain Intensity: 10 Quality: + constant Relieved By: + none Exacerbated By: + movement Associated symptoms: + denies other symptoms Treatments prior to arrival: none This is an 84-year-old female who presents from home with family at bedside complaining of right hip pain since a fall on Monday. Patient states she does have a history of falls and when she turns too quickly she will get off balance. Of note patient was also diagnosed with UTI by her PCP yesterday and started on Keflex. Patient states she does have a history of recurrent UTIs, and has noticed she tends to get more off balance and more dizzy when she has urine infection. Patient states her appetite has been normal and she feels she is drinking enough water. Patient denies any other change in medications. Patient states on Monday she was in her living room and turned quickly became off balance and fell landing on her butt and back. Patient is uncertain if she hit her head but denies losing consciousness. Patient states she crawled over to the couch and sat down for a little bit. She noticed that she had some pain in her right hip but was otherwise able to get up and walk although it did hurt. Patient states she did feel some slight discomfort in her neck, however had no other back pain, no headaches, no extremity injury, no chest pain or trouble breathing, no nausea or vomiting. Patient states since then she has just been dealing with the pain, and family finally convinced her to come get checked out. Patient denies any change in bowel movements, persistent dizziness, fevers or chills. Patient denies any sick contacts or exposure to coronavirus. Pt seen during a time of high acuity and national emergency pandemic while wearing PPE. Home Medications Home Medications Medication Instructions Recorded Confirmed Type Combivent Respimat 1 puff INHALATION QID PRN #0 05/08/14 11/27/19 History calcium carbonate-vitamin D3 2 tab PO BID #0 03/20/17 11/27/19 History [Os-Emile 500 + D3] aspirin 81 mg PO QAM 10/01/18 11/27/19 History blood sugar diagnostic #100 ea 01/31/19 11/27/19 Rx blood-glucose meter #1 ea 01/31/19 11/27/19 Rx lancets 33 gauge #100 ea 01/31/19 11/27/19 Rx ipratropium 0.5 mg-albuterol 3 mg 3 ml INHALATION Q4H PRN #180 ml 02/21/19 Rx (2.5 mg base)/3 mL nebulization soln insulin glargine 100 unit/mL (3 15 units SQ DAILY #16 ml 04/02/19 11/27/19 Rx mL) subcutaneous pen pen needle, diabetic 31 gauge x #100 ea 06/07/19 11/27/19 Rx 5/16" Eliquis 2.5 mg PO BID 06/15/19 11/27/19 History carvedilol 12.5 mg PO BID 06/15/19 11/27/19 History furosemide 20 mg PO QAM 06/15/19 11/27/19 History pantoprazole 40 mg PO DAILY 06/15/19 11/27/19 History sertraline 50 mg PO DAILY 06/15/19 11/27/19 History lovastatin 40 mg tablet 40 mg PO HS #90 tab 07/15/19 11/27/19 Rx valsartan 40 mg tablet 40 mg PO BID #180 tab 10/16/19 11/27/19 Rx calcitriol 0.25 mcg capsule 0.25 mcg PO .COMPLEX #30 cap 11/04/19 11/27/19 Rx gabapentin [Neurontin] 300 mg PO HS 11/27/19 11/27/19 History gabapentin [Neurontin] 400 mg PO HS 11/27/19 11/27/19 History amoxicillin-pot clavulanate 1 tab PO BID 4 Days #8 tab 11/28/19 Rx [Augmentin] Allergies Allergy/AdvReac Type Severity Reaction Status Date / Time tamsulosin Allergy Severe SHORTNESS Verified 11/27/19 20:31 OF BREATH butalbital Allergy Intermediate SHORTNESS Verified 11/27/19 20:31 OF BREATH nitrofurantoin Allergy Unknown Verified 11/27/19 20:31 [From Macrobid] Cephalosporins AdvReac Severe TONGUE Verified 11/27/19 20:31 SWELLING WITH KEFLEX levetiracetam AdvReac Intermediate RASH Verified 11/27/19 20:31 morphine AdvReac Unknown hallucinati Verified 11/27/19 20:31 ons Sulfa (Sulfonamide AdvReac Unknown "SULFA Verified 11/27/19 20:31 Antibiotics) DRUGS" - UNKNOWN Past Med/Surg History Medical History Allergy to multiple antibiotics Cardiac pacemaker Cerebellar infarct Chronic renal disease, stage III Depression Diabetes mellitus Extremity atherosclerosis with intermittent claudication Gait instability History of chest pain Hypertension Secondary hyperparathyroidism of renal origin Solitary pulmonary nodule Transient ischemic attack (TIA) Vitamin D deficiency Surgical History History of nasal surgery Family History Other Family history non-contributory Social History Smoking Status: Never smoker Hx Alcohol Use: No Hx Substance Use: No Preferred Language: Lithuanian Communication Ability: Effective Property Master Required: No Beliefs That Will Affect Care: None marital status: / Current Living Situation: Alone Feels Safe at Home: Yes Assistive Devices: Walker Review of Systems See HPI for pertinent positives & negatives. and A total of 10 systems reviewed and were otherwise negative Physical Exam Vital Signs Vital Signs - 24 hr 11/27/19 21:54 11/27/19 23:46 Pulse Rate [Right Finger] 76 74 Respiratory Rate 19 22 Blood Pressure [Right Arm] 111/83 149/118 H Blood Pressure Mean [Right Arm] 92 128 Pulse Oximetry 94 95 GENERAL: alert, well appearing, well nourished, no distress, non-toxic HEAD: normal cephalic, atraumatic, no facial bone tenderness, no midface instability EYE EXAM: normal conjunctiva, PERRL and EOM's grossly intact OROPHARYNX: no exudate, no erythema, lips, buccal mucosa, and tongue normal and mucous membranes are moist NECK: supple, no nuchal rigidity, no adenopathy, mild tenderness at the inferior aspect of the cervical spine just to the left of midline, full range of motion CHEST: stable to compression anteriorly and posteriorly, no crepitus LUNGS: clear to auscultation. Normal chest wall mechanics, no w/r/r HEART: no murmurs, S1 normal and S2 normal ABDOMEN: abdomen soft, non-tender, normo-active bowel sounds, no masses, no rebound or guarding. PELVIS: stable to compression anteriorly and posteriorly, pain with palpation over the right anterior hip/ASIS, and right pubic symphysis BACK: Back is symmetrical on inspection and there is no deformity, no midline tenderness, no CVA tenderness. UPPER EXTREMITIES: full active and passive range of motion of all joints without tenderness to palpation, no obvious deformities LOWER EXTREMITIES: Left lower extremity with full range of motion, no evidence of trauma, limited range of motion at the right hip secondary to pain, no obvious deformities, no joint effusions, no deformities, normal distal pulses bilaterally NEURO EXAM: Normal sensorium, cranial nerves II-XII grossly intact, normal speech, no gross weakness of arms, no gross weakness of legs. GCS: 15. Course Course 2145: Patient still with significant pain at the right hip despite negative x- ray. Discussed additional imaging and she was in agreement. 2235: Discussed all results with patient and family at bedside. Offered consideration for inpatient treatment versus referral to inpatient rehab. Will discuss with case management for potential options. Discussed with patient risks of going home, and despite her resistance, patient in agreement with plan for additional alternative disposition options. 2311: Per case technician who spoke with patient she was agreeable for inpatient and rehab, however insurance restrictions will require her to have an inpatient stay. Administered Medications Discontinued Medications Apixaban (Apixaban 2.5 Mg Tab) 2.5 mg PO BID TAMMIE Stop: 12/28/19 08:59 Last Admin: 11/28/19 08:19 Dose: 2.5 mg Documented by: [id number] Aspirin (Aspirin 81 Mg Ectab) 81 mg PO QAM TAMMIE Stop: 12/28/19 08:59 Last Admin: 11/28/19 08:19 Dose: 81 mg Documented by: [id number] Carvedilol (Carvedilol 12.5 Mg Tab) 12.5 mg PO BID TAMMIE Stop: 12/28/19 08:59 Last Admin: 11/28/19 08:19 Dose: 12.5 mg Documented by: [id number] Ciprofloxacin (Ciprofloxacin 500 Mg Tab) 500 mg PO BID TAMMIE Stop: 12/04/19 21:01 Last Admin: 11/28/19 08:18 Dose: 500 mg Documented by: [id number] Furosemide (Furosemide 20 Mg Tab) 20 mg PO QAM TAMMIE Stop: 12/28/19 08:59 Last Admin: 11/28/19 08:19 Dose: 20 mg Documented by: [id number] Sodium Chloride (Nss) 500 mls @ 999 mls/hr IV .Q31M ONE Stop: 11/27/19 19:21 Last Infusion: 11/27/19 19:50 Dose: 0 mls/hr Documented by: [id number] Admin: 11/27/19 19:21 Dose: 999 mls/hr Documented by: [id number] Aztreonam 1,000 mg/ Dextrose 110 mls @ 100 mls/hr IV Q8H [facility]; Protocol Stop: 12/08/19 07:59 Last Infusion: 11/28/19 08:51 Dose: 0 mls/hr Documented by: [id number] Admin: 11/28/19 07:48 Dose: 100 mls/hr Documented by: [id number] Insulin Aspart (Insulin Aspart 100 Units/Ml 3 Ml Pen) 0 units SC ACHS TAMMIE Stop: 12/28/19 07:29 Last Admin: 11/28/19 12:51 Dose: 3 units Documented by: [id number] Cosigned by: [id number] Admin: 11/28/19 08:23 Dose: 6 units Documented by: [id number] Cosigned by: [id number] Multivitamins/Minerals (Calcium 600mg + Vit D 400 Iu Tab) 2 tab PO BID TAMMIE Stop: 12/28/19 08:59 Last Admin: 11/28/19 08:16 Dose: 2 tab Documented by: [id number] Pantoprazole Sodium (Pantoprazole 40 Mg Tab) 40 mg PO DAILY TAMMIE Stop: 12/28/19 08:59 Last Admin: 11/28/19 08:18 Dose: 40 mg Documented by: [id number] Sertraline HCl (Sertraline Hcl 50 Mg Tablet) 50 mg PO DAILY TAMMIE Stop: 12/28/19 08:59 Last Admin: 11/28/19 08:19 Dose: 50 mg Documented by: [id number] Valsartan (Valsartan 80 Mg Tab) 40 mg PO BID TAMMIE Stop: 12/28/19 08:59 Last Admin: 11/28/19 08:19 Dose: 40 mg Documented by: [id number] Medical Decision Making Differential Diagnosis Differential diagnoses include major intracranial, cervical, spinal, thoracic, abdominal, pelvic and neurologic injury. Fracture, contusion, sprain, strain, laceration, abrasions included as well. Medical Records Attestation: I reviewed the patient's medical records. Home Medications Current Medication List: was personally reviewed by me Laboratory Data Attestation: I reviewed the patient's lab results. Result diagrams: 11/27/19 19:18 11/27/19 19:18 Lab Results 11/27/19 11/27/19 11/27/19 Range/Units 19:18 19:18 22:03 WBC 7.16 (4.8-10.8) K/uL RBC 3.89 L (4.2-5.4) M/uL Hgb 10.1 L (12.0-16.0) g/dL Hct 33.0 L (37-47) % MCV 84.8 (80-100) fL MCH 26.0 (25-34) pg MCHC 30.6 L (32-36) g/dL RDW Std Deviation 53.6 H (36.4-46.3) fL RDW Coeff of Carlos 17.3 H (11.5-14.5) % Plt Count 185 (130-400) K/uL MPV 11.1 H (7.4-10.4) fL Immature Gran % (Auto) 0.3 % Neut % (Auto) 72.0 % Lymph % (Auto) 21.2 % [place] % (Auto) 4.6 % Eos % (Auto) 1.8 % Baso % (Auto) 0.1 % Neut # (Auto) 5.15 (1.4-6.5) K/uL Lymph # (Auto) 1.52 (1.2-3.4) K/uL [place] # (Auto) 0.33 (0.11-0.59) K/uL Eos # (Auto) 0.13 (0-0.5) K/uL Baso # (Auto) 0.01 (0-0.2) K/uL Immature Gran # (Auto) 0.02 (0.00-0.02) K/uL Sodium 138 (136-145) mmol/L Potassium 3.7 (3.5-5.1) mmol/L Chloride 103 (98-107) mmol/L Carbon Dioxide 28 (21-32) mmol/L Anion Gap 7.0 (3-11) BUN 27 H (7-18) mg/dl Creatinine 1.56 H (0.6-1.2) mg/dl Est Cr Clr Drug Dosing Not Reportable Est GFR ( Amer) 34.5 Est GFR (Non-Af Amer) 29.8 BUN/Creatinine Ratio 17.0 (10-20) Glucose 139 H (70-99) mg/dl Calcium 9.8 (8.5-10.1) mg/dl Magnesium 1.9 (1.8-2.4) mg/dl Total Bilirubin 0.6 (0.2-1) mg/dl AST 17 (15-37) U/L ALT 17 (12-78) U/L Alkaline Phosphatase 93 (45-117) U/L Troponin I < 0.015 (0-0.045) ng/ml Total Protein 8.4 H (6.4-8.2) gm/dl Albumin 3.7 (3.4-5.0) gm/dl Globulin 4.7 H (2.5-4.0) gm/dl Albumin/Globulin Ratio 0.8 L (0.9-2) Urine Color Yellow Urine Appearance Cloudy A (Clear) Urine pH 7.0 (4.5-7.5) Ur Specific [place] 1.010 (1.000-1.030) Urine Protein Negative (Negative) Urine Glucose (UA) Negative (Negative) Urine Ketones Negative (Negative) Urine Blood Negative (Negative) Urine Nitrite Negative (Negative) Urine Bilirubin Negative (Negative) Urine Urobilinogen Negative (Negative) Ur Leukocyte Esterase 2+ H (Negative) Urine WBC (Auto) 10-30 H (0-5) /hpf Urine RBC (Auto) >30 H (0-4) /hpf U Hyaline Cast (Auto) 1-5 (0-5) /lpf U Epithel Cells (Auto) >30 H (0-5) /lpf Urine Bacteria (Auto) Negative (Negative) Urine Crystals Not Reportable Imaging Data Radiologist's Impression: XR hip RT 2V w pelvis CLINICAL HISTORY: Right hip pain status post trauma COMPARISON: 07/31/2017 DISCUSSION: There is a total right hip arthroplasty. No acute fractures or dislocations are visualized. There are postsurgical changes of left hip pinning with 3 cannulated femoral neck screws. There is no SI joint diastases. There is no symphysis diastases. IMPRESSION: Postsurgical changes. No acute fractures or dislocations identified ACT 112: Negative or not required by law. Electronically signed by: Lawson Troncoso M.D. 11/27/2019 7:31 PM XR chest 1V portable CLINICAL HISTORY: trauma PAIN COMPARISON STUDY: 11/05/2019 FINDINGS: There are postsurgical changes of midline sternotomy and valvular replacement. There is a left subclavian dual-chamber central venous pacemaker. There is mild chronic interstitial thickening/edema. There is no focal pulmonary consolidation. There are no significant pleural effusions. There is no pneumothorax.[ IMPRESSION: No active disease in the chest. ACT 112: Negative or not required by law. Electronically signed by: Lawson Troncoso M.D. 11/27/2019 7:[address] head/brain wo con CLINICAL HISTORY: Head pain status post trauma COMPARISON STUDY: June 15, 2019 TECHNIQUE: Axial CT of the brain is performed from the vertex to the skull base. IV contrast was not administered for this examination. A dose lowering technique was utilized adhering to the principles of ALARA. CT DOSE: FINDINGS: No intra or extra-axial mass lesions are visualized. There is no CT evidence of acute cortical infarction. There is no evidence of midline shift. There is no acute hemorrhage. No calvarial fractures are visualized. There are patchy moderate matter hypodensities likely on a small vessel basis. 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 There is no evidence of acute sinusitis. There is an old right frontal silvano hole. IMPRESSION: No acute intracranial findings ACT 112: Negative or not required by law. Electronically signed by: Lawson Troncoso M.D. 11/27/2019 8:[address] OF THE CERVICAL SPINE CLINICAL HISTORY: Neck pain status post trauma COMPARISON STUDY: June 15, 2019 CT DOSE: 895.73 mGy.cm TECHNIQUE: CT scan of the cervical spine was performed from the skull base to the thoracic inlet. Images are reviewed in the axial, sagittal, and coronal planes. IV contrast was not administered for this examination. A dose lowering technique was utilized adhering to the principles of ALARA. FINDINGS: There is no apical pneumothorax. There is a stable multinodular thyroid gland. The prevertebral soft tissues are normal. No fractures or subluxations are visualized. There are moderately advanced multilevel degenerative changes IMPRESSION: No evidence of acute fracture or traumatic subluxation. ACT 112: Negative or not required by law. Electronically signed by: Lawson Troncoso M.D. 11/27/2019 8:[address] pelvis: Diffuse osteopenia. Right total hip arthroplasty in satisfactory alignment. Beam hardening artifact. Old left femoral neck fracture with orthopedic fixation. Nondisplaced left ischio pubic ramus fracture, likely acute and new since 06/15/2019. No acute hip fracture or malalignment. Distended urinary bladder. Sigmoid diverticulosis. Radiologist: Domingo Xie MD CT right hip: Diffuse osteopenia. Right total hip arthroplasty in satisfactory alignment. Beam hardening artifact. Intact hardware. Acute, nondisplaced right ischio pubic ramus fracture. Radiologist: Domingo Xie MD Blood Pressure Blood Pressure Findings: Elevated blood pressure Blood Pressure Disposition: further management by hospitalist MDM Narrative Pt here after a fall from home several days ago and persistent pain and difficulty walking since then. Pt seen by PCP and diagnosed with UTI and started on antibiotic. I do suspect UTI could have contributed to symptoms that would have put pt at an increased risk of falling. She confirms this has happened previously. VS stable. Labs checked as a precaution due to recent infection and were reassuring. Pt cautiously hydrated. Other imaging reassuring and I have a low suspicion for any additional occult traumatic injury given lack of symptoms and several days removed from the fall. Case discussed with hospitalist for additionl mgmt. Pt and family aware of all results and given risks of recurrent fall and pt living alone, additional evaluation and discharge options will need to be discussed. An order was placed for continuous cardiac monitoring. The monitor shows a rate of _72_ with _normal sinus_ rhythm. Impression & Plan Acute pain of right hip, Fall, Fracture of pubic ramus, Ambulatory dysfunction, Acute UTI (urinary tract infection) Discharge Plan Visit Data Chief Complaint: Fall Stated Complaint: FALL, UNABLE TO WALK ED Provider: Alma Delia Hernandez Discharge Problem: Acute pain of right hip, Fall, Fracture of pubic ramus, Ambulatory dysfunction, Acute UTI (urinary tract infection) Patient Disposition: Admitted As Inpatient Discharge Instructions Interventions: ED Discharge Assessment Last Done: 11/28/19 00:15 Discharge Problem: Fall Qualifiers: Encounter type: initial encounter Qualified Code(s): W19.XXXA - Unspecified fall, initial encounter Fracture of pubic ramus Qualifiers: Encounter type: initial encounter Fracture type: closed Laterality: right Qualified Code(s): S32.591A - Other specified fracture of right pubis, initial encounter for closed fracture
[2019-11-27 19:58] LABS: Albumin Level 3.7 gm/dl (3.4-5.0); Blood Urea Nitrogen 27 mg/dl (7-18); Calcium 9.8 mg/dl (8.5-10.1); Carbon Dioxide 28 mmol/L (21-32); Chloride 103 mmol/L (98-107); Est GFR (African American) 34.5; Est GFR (Non-African American) 29.8; Glucose 139 mg/dl (70-99); Magnesium 1.9 mg/dl (1.8-2.4); Potassium 3.7 mmol/L (3.5-5.1); Sodium 138 mmol/L (136-145)
[2019-11-27 20:02] LABS: Alanine Aminotransferase 17 U/L (12-78); Albumin Globulin Ratio 0.8 (0.9-2); Alkaline Phosphatase 93 U/L (45-117); Aspartate Aminotransferase 17 U/L (15-37); Bilirubin,Total 0.6 mg/dl (0.2-1); Globulin 4.7 gm/dl (2.5-4.0); Total Protein 8.4 gm/dl (6.4-8.2); Troponin I < 0.015 ng/ml (0-0.045)
--- NOTE | 2019-11-27 20:04 | CT Scan Report ---
CT head/brain wo con CLINICAL HISTORY: Head pain status post trauma COMPARISON STUDY: June 15, 2019 TECHNIQUE: Axial CT of the brain is performed from the vertex to the skull base. IV contrast was not administered for this examination. A dose lowering technique was utilized adhering to the principles of ALARA. CT DOSE: FINDINGS: No intra or extra-axial mass lesions are visualized. There is no CT evidence of acute cortical infarc tion. There is no evidence of midline shift. There is no acute hemorrhage. No calvarial fractures ar e visualized. There are patchy moderate matter hypodensities likely on a small vessel basis. There is an old left c erebellar infarct There is no evidence of pathologic ventricular dilatation. There is no evidence of acute sinusitis. There is an old right frontal silvano hole. IMPRESSION: No acute intracranial findings ACT 112: Negative or not required by law. Electronically signed by: Lawson Troncoso M.D. 11/27/2019 8:03 PM
--- NOTE | 2019-11-27 20:07 | CT Scan Report ---
CT OF THE CERVICAL SPINE CLINICAL HISTORY: Neck pain status post trauma COMPARISON STUDY: June 15, 2019 CT DOSE: 895.73 mGy.cm TECHNIQUE: CT scan of the cervical spine was performed from the skull base to the thoracic inlet. Lexie ges are reviewed in the axial, sagittal, and coronal planes. IV contrast was not administered for thi s examination. A dose lowering technique was utilized adhering to the principles of ALARA. FINDINGS: There is no apical pneumothorax. There is a stable multinodular thyroid gland. The prevertebral soft tissues are normal. No fractures or subluxations are visualized. There are moderately advanced multilevel degenerative changes IMPRESSION: No evidence of acute fracture or traumatic subluxation. ACT 112: Negative or not required by law. Electronically signed by: Lawson Troncoso M.D. 11/27/2019 8:06 PM
[2019-11-27 22:21] LABS: Appearance Urine Cloudy (Clear); Bacteria Urine Automated Negative (Negative); Bilirubin Urine Negative (Negative); Blood Urine Negative (Negative); Color Urine Yellow; Epithelial Cell Urine Auto >30 /lpf (0-5); Glucose Urine UA Negative (Negative); Ketones Urine Negative (Negative); Leukocyte Esterase Urine 2+ (Negative); Nitrite Urine Negative (Negative); Protein Urine Negative (Negative); RBC Urine Automated >30 /hpf (0-4); Urobilinogen Urine Negative (Negative)
[2019-11-28] MEDS ORDERED: IPRATROPIUM BROMIDE/ALBUTEROL respimat INH INH PRN (00:40)
[2019-11-28] MEDS ORDERED: GLUCAGON FOR INJ 1 MG VIAL SQ PRN (00:40)
[2019-11-28] MEDS ORDERED: CARBOHYDRATES FOR HYPOGLYCEMIA PO PRN (00:40)
[2019-11-28] MEDS ORDERED: ONDANSETRON INJ 2 MG/ML 2 ML VIAL IV PRN (00:40)
[2019-11-28] MEDS ORDERED: GLUCOSE 40% GEL 15 GM TUBE PO PRN (00:40)
[2019-11-28] MEDS ORDERED: POLYETHYLENE (MIRALAX) 17 GM PACK PO PRN (00:40)
[2019-11-28] MEDS ORDERED: DEXTROSE 50% 50 ML SYRINGE IV PRN (00:40)
[2019-11-28] MEDS ORDERED: ACETAMINOPHEN 325 MG TAB PO PRN (00:40)
[2019-11-28] MEDS ORDERED: ALBUT/IPRATROP 3MG/0.5MG NEB 3 ML VIAL INH PRN (00:40)
[2019-11-28] MEDS ORDERED: GLUCOSE 10 TABS/TUBE PO PRN (00:40)
[2019-11-28] MEDS ORDERED: traMADol HCL 50 MG TABLET PO PRN (00:40)
[2019-11-28] MEDS ORDERED: DC ALL PREVIOUSLY ORDERED DIABETES MEDS ONE (00:40)
--- NOTE | 2019-11-28 03:55 | History & Physical Report ---
Date of Service November 27, 2019 Assessment & Plan (1) Urinary tract infection: Kassy Vasquez is an 84 year old woman with a past medical history of CAD, paroxysmal A fib on eliquis who presents following a fall with a pubic ramus fracture Pubic Ramus Fracture Non operative, will admit for PT/OT evaluation and rehab vs SNF placement Patient is bearing weight though it is painful, history of allergies to morphine, she states "I went Crazy!" Will start with tramadol and give more pain control as needed Fall likely secondary to her UTI COntinuing vitamin D calcium calcitriol supplementation UTI Will place patient on aztreonam IV, as she has been on oral cipro for last two days without improvement. She continues to have urinary frequency burning and suprapubic tenderness CKD Patient appears to be near baseline Encouraged good PO intake CAD, CHF, A fib Continuing home meds including carvedilol, eliquis, asa, furosemide, valsartan DMII Insulin sliding scale Depression Sertraline 50 mg daily COPD Continuing home inhaler DVT PPx: eliquis F/E/N: Heart healthy DMII diet Dispo: Admit for placement to rehab SNF JUICE DNR/DNI (2) Type 2 DM with CKD stage 3 and hypertension: (3) Anticoagulant long-term use: (4) Vitamin D deficiency: (5) Secondary hyperparathyroidism of renal origin: (6) Paroxysmal atrial fibrillation: (7) CAD (coronary artery disease): (8) Cardiac pacemaker: History of Present Illness Chief Complaint: Fall Primary Care Provider: DAVID Palmer Kassy Vasquez is an 84 year old woman with a past medical history significant for DMII, CAD, HTN, DLD, Paroxysmal A fib on eliquis, Complete AV block with pacemaker who presents after a fall on Monday with right sided groin pain with ambulation. Patient had a mechanical fall at home. She had a no loss of consciousness she was not feeling lightheaded no other pains. She has had multiple falls at home usually associated with UTI's which she has also had several of recently she tells me. She was put on ciprofloxacin by her PCP for a UTI on monday. She lives independently with family living next door. On presentation to ED patient's vitals WNL, labwork significant for anemia, hemoglobin of 10.1, elevated creatinine of 1.56 near her baseline and positive UA. Patient recently had urine culture that grew pansensitive citrobacter freundii. Has been on cipro. Lives alone non smoker, non drinker, no drug use, DNR DNI Allergies Allergy/AdvReac Type Severity Reaction Status Date / Time tamsulosin Allergy Severe SHORTNESS Verified 11/27/19 20:31 OF BREATH butalbital Allergy Intermediate SHORTNESS Verified 11/27/19 20:31 OF BREATH nitrofurantoin Allergy Unknown Verified 11/27/19 20:31 [From Macrobid] Cephalosporins AdvReac Severe TONGUE Verified 11/27/19 20:31 SWELLING WITH KEFLEX levetiracetam AdvReac Intermediate RASH Verified 11/27/19 20:31 morphine AdvReac Unknown hallucinati Verified 11/27/19 20:31 ons Sulfa (Sulfonamide AdvReac Unknown "SULFA Verified 11/27/19 20:31 Antibiotics) DRUGS" - UNKNOWN Home Medications Home Medications Medication Instructions Recorded Confirmed Type Combivent Respimat 1 puff INHALATION QID PRN #0 05/08/14 11/27/19 History calcium carbonate-vitamin D3 2 tab PO BID #0 03/20/17 11/27/19 History [Os-Emile 500 + D3] aspirin 81 mg PO QAM 10/01/18 11/27/19 History blood sugar diagnostic #100 ea 01/31/19 11/27/19 Rx blood-glucose meter #1 ea 01/31/19 11/27/19 Rx lancets 33 gauge #100 ea 01/31/19 11/27/19 Rx ipratropium 0.5 mg-albuterol 3 mg 3 ml INHALATION Q4H PRN #180 ml 02/21/19 11/27/19 Rx (2.5 mg base)/3 mL nebulization soln insulin glargine 100 unit/mL (3 15 units SQ DAILY #16 ml 04/02/19 11/27/19 Rx mL) subcutaneous pen pen needle, diabetic 31 gauge x #100 ea 06/07/19 11/27/19 Rx 5/16" Eliquis 2.5 mg PO BID 06/15/19 11/27/19 History carvedilol 12.5 mg PO BID 06/15/19 11/27/19 History furosemide 20 mg PO QAM 06/15/19 11/27/19 History pantoprazole 40 mg PO DAILY 06/15/19 11/27/19 History sertraline 50 mg PO DAILY 06/15/19 11/27/19 History lovastatin 40 mg tablet 40 mg PO HS #90 tab 07/15/19 11/27/19 Rx valsartan 40 mg tablet 40 mg PO BID #180 tab 10/16/19 11/27/19 Rx calcitriol 0.25 mcg capsule 0.25 mcg PO .COMPLEX #30 cap 11/04/19 11/27/19 Rx gabapentin [Neurontin] 300 mg PO HS 11/27/19 11/27/19 History gabapentin [Neurontin] 400 mg PO HS 11/27/19 11/27/19 History amoxicillin-pot clavulanate 1 tab PO BID 4 Days #8 tab 11/28/19 Rx [Augmentin] Past Med/Surg History Medical History Allergy to multiple antibiotics Cardiac pacemaker Cerebellar infarct Chronic renal disease, stage III Depression Diabetes mellitus Extremity atherosclerosis with intermittent claudication Gait instability History of chest pain Hypertension Secondary hyperparathyroidism of renal origin Solitary pulmonary nodule Transient ischemic attack (TIA) Vitamin D deficiency Surgical History History of nasal surgery Family History Other Family history non-contributory Social History Smoking Status: Never smoker Hx Alcohol Use: No Hx Substance Use: No Preferred Language: Kenyan Communication Ability: Effective 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 Beliefs That Will Affect Care: None marital status: / Current Living Situation: Alone Feels Safe at Home: Yes Assistive Devices: Walker Review of Systems Review of Systems: All systems reviewed & are unremarkable except as noted in HPI & below Physical Exam Constitutional: WD/WN, vitals as above Eyes: PERRL, conjunctivae normal, anicteric sclerae ENMT: external ear and nose normal, oropharynx normal Neck: trachea midline, no thyromegaly Respiratory: normal respiratory effort, lungs clear to auscultation Cardiovascular: Rate/Rhythm: regular rate and regular rhythm Heart Sounds: + murmur (systolic ejection) Extremities: no calf tenderness and no pedal edema Gastrointestinal (Abdomen): Abdomen soft, supra pubic tenderness Musculoskeletal: Tenderness to palpation of pelvis and while moving leg, no leg length discrepancy able to bear weight Results & Data Results & [facility] ([facility]) Vital Signs (Past 12 Hours) Vital Signs Temp Pulse Pulse Resp BP BP Pulse Ox 11/27/19 21:54 76 19 111/83 94 11/27/19 19:47 72 15 180/105 H 96 11/27/19 18:20 36.7 C 77 18 164/70 H 97 Supervising Physician Co-Signing Physician Notes Attending addendum: I have physically seen this patient, have supervised the medical residents activities, and agree with the H&P unless as otherwise noted. Assessment and Plan: Right pubic ramus fracture- Consult PT/OT. Continue calcium and vitamin D supplementation. Patient will likely need inpatient rehab Urinary tract infection- Allergies to nitrofurantoin, cephalosporins and sulfas. Recently on Cipro as outpatient. Aztreonam 1 g IV every 8 hours. Follow urine culture and sensitivity CAD/hypertension/CHF/atrial fibrillation- Continue carvedilol, aspirin, Furosemide, valsartan and Eliquis. Diabetes mellitus- Placed on Accu-Cheks before meals and at bedtime with NovoLog coverage per scale Remaining orders and notations as noted Resident Activity Tracking Resident Involvement: Resident Care Provided Care Provided: Adult Hospital Medicine
--- NOTE | 2019-11-28 07:12 | CT Scan Report ---
CT pelvis wo con CLINICAL HISTORY: trauma, unable to walk COMPARISON STUDY: CT of the abdomen and pelvis June 15, 2019. Pelvis and right hip radiographs November 27, 2019. TECHNIQUE: Axial images of the pelvis and hips were obtained without IV contrast. Sagittal and rosen l reconstructions were viewed. Automated exposure control was utilized for the study. A dose lowerin g technique was utilized adhering to the principles of ALARA. FINDINGS: The bladder is markedly distended. There is sigmoid diverticulosis. Evidence for acute dive rticulitis. Caliber of visualized small and large bowel are normal The sacroiliac joints and symphysi s pubis are intact. Right hip arthroplasty is partially imaged on this exam. No periprosthetic fractu re is identified. Please note that the distal aspect of the femoral component was not imaged on this exam. There is an acute nondisplaced fracture of the right inferior pubic ramus. Slight irregularity of the left inferior pubic ramus is unchanged and CT of June 15, 2019. Cannulated screws within the pro ximal left femur are noted. There is an old, healed proximal left femoral fracture. No acute proximal femoral fracture is identified. IMPRESSION: 1. Acute nondisplaced fracture of the right inferior pubic ramus. This finding will be called/faxed t o the ordering provider at time of dictation. 2. Partially visualized right hip arthroplasty. Right hip CT will be reported separately. Old, healed proximal left femoral fracture status post internal fixation. Hardware intact. 3. Marked distention of the bladder. ACT 112: Negative or not required by law. Electronically signed by: Sonido Issa M.D. 11/28/2019 7:11 AM
--- NOTE | 2019-11-28 07:42 | CT Scan Report ---
CT SCAN OF THE RIGHT HIP WITHOUT IV CONTRAST CLINICAL HISTORY: Trauma. Difficulty with ambulation. COMPARISON STUDY: Radiographs of the right hip dated 11/27/2019. CT of the pelvis dated 06/15/2019. TECHNIQUE: CT scan of the right hip is performed from the bony pelvis to the distal femoral shaft. Im ages are reviewed in the axial, sagittal, and coronal planes. IV contrast was not administered for th is examination. A dose lowering technique was utilized adhering to the principles of ALARA. The exami nation is degraded by streak artifact from a right hip arthroplasty. CT DOSE: 590.82 mGy.cm FINDINGS: The skeletal structures are osteopenic. There is an acute nondisplaced fracture of the righ t inferior pubic ring. A bipolar right hip arthroplasty is in near-anatomic alignment. No periprosthe tic lucency is seen. There is no evidence of periprosthetic fracture. Mild hemorrhage is seen around the right pubic ring fracture. The visualized musculature of the right thigh is normal in appearance. There is atherosclerotic calcification of the right femoral artery surgical clips are noted in the r ight groin. The overlying soft tissues are normal as imaged. IMPRESSION: 1. Nondisplaced fracture of the right inferior pubic ring. 2. No fracture is identified involving the right proximal femur. 3. A right hip arthroplasty is in near-anatomic alignment. ACT 112: Negative or not required by law. Electronically signed by: Christos Ochoa M.D. 11/28/2019 7:40 AM
[2019-11-28 07:59] LABS: Estimated Average Glucose 146 mg/dl; Hemoglobin A1C 6.7 % (4.5-5.6)
[2019-11-28] MEDS ORDERED: AZTREONAM 1,000 MG in DEXTROSE 5% 100 ML IV SCH (08:00)
[2019-11-28] MEDS: INSULIN ASPART 100 UNITS/ML 3 ML PEN SC SCH ×2 (08:23→12:51)
[2019-11-28] MEDS ORDERED: CALCIUM 600MG + VIT D 400 IU TAB PO SCH (09:00)
[2019-11-28] MEDS ORDERED: CIPROFLOXACIN 500 MG TAB PO SCH (09:00)
[2019-11-28] MEDS ORDERED: PANTOprazole 40 MG TAB PO SCH (09:00)
[2019-11-28] MEDS ORDERED: FUROSEMIDE 20 MG TAB PO SCH (09:00)
[2019-11-28] MEDS ORDERED: APIXABAN 2.5 MG TAB PO SCH (09:00)
[2019-11-28] MEDS ORDERED: VALSARTAN 80 MG TAB PO SCH (09:00)
[2019-11-28] MEDS ORDERED: ASPIRIN 81 MG ECTAB PO SCH (09:00)
[2019-11-28] MEDS ORDERED: SERTRALINE HCL 50 MG TABLET PO SCH (09:00)
[2019-11-28] MEDS ORDERED: carvediloL 12.5 MG TAB PO SCH (09:00)
--- NOTE | 2019-11-28 14:04 | Hospitalist Progress Note ---
Date of Service November 28, 2019 Assessment & Plan Admission and Anticipated Discharge Date Admission Date: November 27, 2019 Subjective Patient without acute events overnight. Denies pain while lying in bed. States that when she tries to get out of bed she has pain in her left groin. The pain medication is helpful for her pain Results & Data Results & Data ([facility]) Vital Signs (Past 12 Hours) Vital Signs Temp Pulse Resp BP Pulse Ox 11/28/19 07:46 36.8 C 76 18 165/71 H 91
--- NOTE | 2019-11-28 15:16 | Discharge Summary ---
Date of Service November 28, 2019 Admission HPI Per Admitting Provider Kassy Vasquez is an 84 year old woman with a past medical history significant for DMII, CAD, HTN, DLD, Paroxysmal A fib on eliquis, Complete AV block with pacemaker who presents after a fall on Monday with right sided groin pain with ambulation. Patient had a mechanical fall at home. She had a no loss of consciousness she was not feeling lightheaded no other pains. She has had multiple falls at home usually associated with UTI's which she has also had several of recently she tells me. She was put on ciprofloxacin by her PCP for a UTI on monday. She lives independently with family living next door. On presentation to ED patient's vitals WNL, labwork significant for anemia, hemoglobin of 10.1, elevated creatinine of 1.56 near her baseline and positive UA. Patient recently had urine culture that grew pansensitive citrobacter freundii. Has been on cipro. Lives alone non smoker, non drinker, no drug use, DNR DNI Admission Exam Per Admitting Provider Constitutional: WD/WN, vitals as above Eyes: PERRL, conjunctivae normal, anicteric sclerae ENMT: external ear and nose normal, oropharynx normal Neck: trachea midline, no thyromegaly Respiratory: normal respiratory effort, lungs clear to auscultation Cardiovascular: Rate/Rhythm: regular rate and regular rhythm Heart Sounds: + murmur (systolic ejection) Extremities: no calf tenderness and no pedal edema Gastrointestinal (Abdomen): Abdomen soft, supra pubic tenderness Musculoskeletal: Tenderness to palpation of pelvis and while moving leg, no leg length discrepancy able to bear weight Principal Diagnosis pelvic ramus fracture Discharge Exam Constitutional WD/WN, vitals as above Eyes PERRL, conjunctivae normal, anicteric sclerae ENMT external ear and nose normal, oropharynx normal Neck trachea midline, no thyromegaly Respiratory normal respiratory effort, lungs clear to auscultation Cardiovascular RRR, no murmur, no edema Gastrointestinal (Abdomen) normal bowel sounds, soft, nontender, no hepatosplenomegaly Musculoskeletal Hip: + limited ROM of hip and + log roll test positive (left side); no deformity Skin no rashes, warm and dry Neurologic moves all extremities; no focal motor deficits Motor/Sensory: no tremor Psychiatric A+Ox3, euthymic affect Discharge Data Allergies Allergy/AdvReac Type Severity Reaction Status Date / Time tamsulosin Allergy Severe SHORTNESS Verified 11/27/19 20:31 OF BREATH butalbital Allergy Intermediate SHORTNESS Verified 11/27/19 20:31 OF BREATH nitrofurantoin Allergy Unknown Verified 11/27/19 20:31 [From Macrobid] Cephalosporins AdvReac Severe TONGUE Verified 11/27/19 20:31 SWELLING WITH KEFLEX levetiracetam AdvReac Intermediate RASH Verified 11/27/19 20:31 morphine AdvReac Unknown hallucinati Verified 11/27/19 20:31 ons Sulfa (Sulfonamide AdvReac Unknown "SULFA Verified 11/27/19 20:31 Antibiotics) DRUGS" - UNKNOWN Consultations 11/27/19 23:05 ED Decision to Admit Stat 11/28/19 12:41 Consult Case Management - Discharge Planning Routine Ordered Studies 11/27/19 18:51 CT cervical spine wo con Stat CT head/brain wo con Stat 11/27/19 20:40 CT hip RT wo con Urgent CT pelvis wo con Urgent Hospital Course (1) Urinary tract infection: 84 yo F PMHx CAD, DM2, CHF, COPD, CKD stage 3, paroxysmal A fib on Eliquis admitted for pubic ramus fracture and continued treatment of UTI. Pubic Ramus Fracture: - Non operative, PT/OT evaluation recommended inpatient PT/OT, however patient desires discharge home with home health. - Patient was able to ambulate with little help, and with some pain though manageable. - Has support in the form of her daughter and other family members, and will not have to walk up stairs which is what she struggled with during PT. - Home PT/OT for the next several weeks for strengthening. - OTC pain medication, patient did not require prescription medications while admitted. - Advised patient to return to hospital should she struggle at home, which the patient was amenable to. Complicated UTI: - Diagnosed with UTI 2 days ago by PCP. - Urine cultures grew pansensitive e. coli. - Patient was discharged on Augmentin BID for 4 more days to complete 7 total treatment days for complicated UTI. CKD: - Patient appears to be near baseline. - Encouraged good PO intake while admitted. CAD, CHF, A fib: Continue home meds including carvedilol, Eliquis, asa, furosemide, valsartan. DMII: - Continue home medications. Depression: - Continue sertraline 50 mg daily. COPD: - Continue home inhaler. Total Time Total Time Spent Total Time Spent (In Minutes): <30 Discharge Plan Discharge Items Patient Disposition: Home - Home Health Services Reason For Visit: PUBIC RAMUS FRACTURE Discharge Diagnosis: pubic ramus fracture Activity: Per Instructions section Weightbearing: Full weightbearing Non-emergency contact: Primary Care Provider Call non-emergency contact if: you have any medication questions, your symptoms worsen, your pain is not controlled, your pain is worsening and your temperature is above 101 Follow-up/Referrals: Crystal Mcguire CRNP [Primary Care Provider] - 12/03/19 10:30 am Diet: Carb Consistent or DM2 Addtl Attending Provider Instructions: You were admitted to the hospital for hip pain after a fall. You were found to have a fracture of the hip bone called the pubic ramus. The surgeon's felt that it was not a good idea to perform surgery on the broken bone, because it is not out of place. Physical and occupational therapy saw you and recommended you have lots of therapy to help you get stronger and help your hip heal. You wanted to go home and we felt safe to discharge you home with the following recommendations: 1) Please stay on the first floor of your house as much as possible. Use your lift chair if you ever have to go up to the first floor. 2) Use over the counter medications for pain, such as Tylenol. 3) You will have physical therapy services come to the house to help you get stronger. 4) Follow up with your family doctor in one week to go over your physical therapist technician apy progress. 5) For your urinary infection we will send Augmentin, an oral antibiotic, to your pharmacy. You will take this pill twice daily for four days, starting tomorrow. If you feel that your symptoms are worsening, or you are unable to perform therapy at home, please come back to the hospital for evaluation. Pending Studies at Discharge: No Stand-Alone Forms: My [employer], Smoking Cessation Medications and DC Order Prescriptions: New amoxicillin-pot clavulanate [Augmentin] 875-125 mg tablet 1 tab PO BID 4 Days Qty: 8 RF: 0 Continued Combivent Respimat 20-100 mcg/actuation Mist 1 puff INHALATION QID PRN (Reason: Wheezing) Qty: 0 RF: 0 calcium carbonate-vitamin D3 [Os-Emile 500 + D3] 500 mg(1,250mg) -200 unit Tablet 2 tab PO BID Qty: 0 RF: 0 (DME) OneTouch Verio test strips strip See Rx Instructions .ROUTE .MEDSUPPLY Qty: 100 RF: 5 (DME) blood-glucose meter [OneTouch Verio Flex Start] kit See Rx Instructions .ROUTE .MEDSUPPLY Qty: 1 RF: 0 (DME) lancets [OneTouch Delica Lancets] 33 gauge misc See Rx Instructions .ROUTE .MEDSUPPLY Qty: 100 RF: 5 ipratropium-albuterol 0.5 mg-3 mg(2.5 mg base)/3 mL solution for nebulization 3 ml INHALATION Q4H PRN (Reason: Wheezing) Qty: 180 RF: 5 Lantus Solostar U-100 Insulin 100 unit/mL (3 mL) insulin pen 15 units SQ DAILY Qty: 16 RF: 5 (DME) pen needle, diabetic [1st Tier Unifine Pentips] 31 gauge x 5/16" needle See Rx Instructions .ROUTE .MEDSUPPLY Qty: 100 RF: 4 lovastatin 40 mg tablet 40 mg PO HS Qty: 90 RF: 1 valsartan 40 mg tablet 40 mg PO BID Qty: 180 RF: 3 calcitriol 0.25 mcg capsule 0.25 mcg PO .COMPLEX Qty: 30 RF: 2 carvedilol 12.5 mg tablet 12.5 mg PO BID RF: 0 pantoprazole 40 mg tablet,delayed release (DR/EC) 40 mg PO DAILY RF: 0 furosemide 20 mg tablet 20 mg PO QAM RF: 0 sertraline 50 mg tablet 50 mg PO DAILY RF: 0 Eliquis 2.5 mg tablet 2.5 mg PO BID RF: 0 aspirin 81 mg Tablet,Delayed Release (Dr/Ec) 81 mg PO QAM RF: 0 gabapentin [Neurontin] 400 mg capsule 400 mg PO HS RF: 0 gabapentin [Neurontin] 300 mg capsule 300 mg PO HS RF: 0 Discontinued ciprofloxacin HCl 500 mg tablet 500 mg PO BID Qty: 14 RF: 0 Discharge Orders: Discharge Order (Routine); Ordered 11/28/19 Ordered By: Apoorva Rincon/Other Patient Handouts: Managing Type 2 Diabetes Admission Data Admit Date/Time: 11/27/19 23:47 Attending Provider: Latrell Olvera Admit Provider: Michael Rubio Primary Care Provider: Crystal Mcguire Other Providers: [place] ; [facility] ; [facility] Other Interventions: Discharge Summary Assessment (RN) Last Done: 11/28/19 16:31 Supervising Physician Co-Signing Physician Notes I personally examined the patient and verified all godinez points of history and exam, discussed case, and agree with decision making with Dr Mitchell. feels like she can do ok at home has good family support pain control reasonable w tylenol urinary sx have resolved vitals noted nad heent nc at mmm breathing unlabored no accessory muscles good effort skin no rashes no pallor or icterus neuro no focal deficits pubic ramus fracture - possibly osteoporotic - pain easy to control. stable for home given her family support, ease of pain control, and plan UTI - estes sensitive, sx have resolved. home on PO abx stable for home with her plan since she does not want rehab - but did d/w pt if she at all feels unsafe to come back right away and we could then work on rehab placement Resident Activity Tracking Resident Involvement: Resident Care Provided Care Provided: Adult Hospital Medicine
--- NOTE | 2019-11-28 18:11 | Billing Data ---
Date of Service November 28, 2019 Coding Level of Care Code 54930 OBS Care - Discharge
[2019-11-28] MEDS ORDERED: LOVASTATIN 20 MG TAB PO SCH (21:00)
[2019-11-28] MEDS ORDERED: GABAPENTIN 300 MG CAP PO SCH (21:00)
[2019-11-28] MEDS ORDERED: GABAPENTIN 400 MG CAP PO SCH (21:00)
--- NOTE | 2019-11-29 05:08 | Billing Data ---
Date of Service November 29, 2019 Coding Level of Care Code 97024 OBS Care - Level 3
[2019-11-29] MEDS ORDERED: CIPROFLOXACIN 500 MG TAB PO SCH (09:00)
[2019-11-29] MEDS ORDERED: CALCITRIOL 0.25 MCG CAPSULE PO SCH (09:00)
== END 2019-11-28 17:45 | disposition home health service (06) ==
LOC: ED 18:16 → 3N 18:16 → SUATTDRO 23:47 → 3N 11-28 00:15

== ENCOUNTER 2020-03-16 10:49 | Inpatient (IN) ==
[2020-03-16] MEDS ORDERED: DAPTOmycin 175 MG in SYRINGE 0 ML IV ONE (12:03)
[2020-03-16] MEDS ORDERED: ACETAMINOPHEN 325 MG TAB PO STA (12:03)
[2020-03-16] MEDS ORDERED: CEFEPIME 2,000 MG/20 ML VIAL IV STA (12:07)
[2020-03-16 13:05] LABS: Basophils # (auto) 0.01 K/uL (0-0.2); Basophils % (auto) 0.1 %; Eosinophils # (auto) 0.03 K/uL (0-0.5); Eosinophils % (auto) 0.3 %; Hematocrit (blood only) 32.4 % (37-47); Immature Granulocytes # (auto) 0.03 K/uL (0.00-0.02); Immature Granulocytes % (auto) 0.3 %; Lymphocytes # (auto) 1.44 K/uL (1.2-3.4); Lymphocytes % (auto) 15.1 %; Mean Corpuscular Hemoglobin 25.7 pg (25-34); Mean Corpuscular Hgb Conc 30.9 g/dL (32-36); Mean Corpuscular Volume 83.3 fL (80-100); Mean Platelet Volume 10.7 fL (7.4-10.4); Monocytes # (auto) 0.44 K/uL (0.11-0.59); Monocytes % (auto) 4.6 %; Neutrophils % (auto) 79.6 %; Platelet Count 162 K/uL (130-400); RDW Coefficient of Variation 17.9 % (11.5-14.5); RDW Standard Deviation 54.8 fL (36.4-46.3); Red Blood Count 3.89 M/uL (4.2-5.4); White Blood Count 9.55 K/uL (4.8-10.8)
[2020-03-16 13:18] LABS: Alanine Aminotransferase 12 U/L (12-78); Albumin Level 3.4 gm/dl (3.4-5.0); Aspartate Aminotransferase 11 U/L (15-37); Blood Urea Nitrogen 23 mg/dl (7-18); Calcium 9.3 mg/dl (8.5-10.1); Carbon Dioxide 30 mmol/L (21-32); Chloride 101 mmol/L (98-107); Est GFR (Non-African American) 32.8; Glucose 149 mg/dl (70-99); Potassium 3.7 mmol/L (3.5-5.1); Sodium 136 mmol/L (136-145)
[2020-03-16 13:21] LABS: Albumin Globulin Ratio 0.7 (0.9-2); Alkaline Phosphatase 84 U/L (45-117); Bilirubin,Total 0.7 mg/dl (0.2-1); Globulin 4.6 gm/dl (2.5-4.0)
[2020-03-16] MEDS ORDERED: SODIUM CHLORIDE 0.9% 250 ML IV ONE (13:36)
[2020-03-16] MEDS: SODIUM CHLORIDE 0.9% 500 ML IV SCH ×2 (14:13→20:13)
--- NOTE | 2020-03-16 15:07 | History & Physical Report ---
Date of Service March 16, 2020 Assessment & Plan (1) Cellulitis of right hand: Status post carpal tunnel surgery IV daptomycin and ceftriaxone Follow-up blood and wound cultures Elevate right upper extremity Consult orthopedics (2) Abscess of right hand: Superficial abscess drained in ER. Wound culture taken with rare gram- positive cocci present. Management as above. (3) Tenosynovitis of right hand: Management as above. (4) Type 2 DM with CKD stage 3 and hypertension: HbA1c 6.7 in November. We will repeat with a.m. labs. Switch her usual dosing of Lantus 15 units every afternoon to 8 units twice daily with hold parameters. NovoLog sliding scale for correction and carb coverage. (5) Paroxysmal atrial fibrillation: Hold anticoagulation due to likely need for I&D (6) CAD (coronary artery disease): Continue aspirin, carvedilol. Holding lovastatin due to daptomycin use. Holding Eliquis due to possible need for surgery. (7) Chronic combined systolic and diastolic CHF (congestive heart failure): Currently appears dry on exam. Will hold Lasix on admission however this may need to be restarted during her admission. (8) Neuropathy of both upper extremities: Continue gabapentin 700 mg p.o. at bedtime Admission and Anticipated Discharge Date Admission Date: March 16, 2020 History of Present Illness Chief Complaint: Right hand swelling Primary Care Provider: DAVID Palmer Kassy Vasquez is an 84 year old female who presents to the ER with right hand erythema, swelling and pain. She reports having carpal tunnel surgery to her right hand 2 weeks ago. The patient notes routine healing since then and was followed up by orthopedics in the last week with no concerns at that time. She denies any trauma to her hand. 2 days ago she noted increased swelling at nighttime. The following day she called her doctor who prescribed Keflex. Despite taking this yesterday - the swelling, erythema and pain have progressed. She is now unable to fully extend her fingers. She denies any fevers or chills. In the ER she was noted to have an abscess which was drained and wound culture taken. Blood cultures taken. She was started on daptomycin and cefepime for cellulitis. She was referred to medicine for admission and ongoing management of right hand abscess/cellulitis. Allergies Allergy/AdvReac Type Severity Reaction Status Date / Time tamsulosin Allergy Severe SHORTNESS Verified 03/06/20 13:27 OF BREATH butalbital Allergy Intermediate SHORTNESS Verified 03/06/20 13:27 OF BREATH nitrofurantoin Allergy Unknown Verified 03/06/20 13:27 [From Macrobid] Cephalosporins AdvReac Severe TONGUE Verified 03/16/20 12:09 SWELLING WITH KEFLEX- tolerating keflex 03/16/20 levetiracetam AdvReac Intermediate RASH Verified 03/06/20 13:27 morphine AdvReac Unknown hallucinati Verified 03/06/20 13:27 ons Sulfa (Sulfonamide AdvReac Unknown "SULFA Verified 03/06/20 13:27 Antibiotics) DRUGS" - UNKNOWN Home Medications Medication Instructions Recorded Confirmed Type Combivent Respimat 1 puff INHALATION QID PRN #0 05/08/14 03/16/20 History calcium carbonate-vitamin D3 2 tab PO BID #0 03/20/17 03/16/20 History [Os-Meile 500 + D3] aspirin 81 mg PO QAM 10/01/18 03/16/20 History insulin glargine 100 unit/mL (3 15 units SQ DAILY #16 ml 04/02/19 03/16/20 Rx mL) subcutaneous pen Eliquis 2.5 mg PO BID 06/15/19 03/16/20 History valsartan 40 mg tablet 40 mg PO BID #180 tab 10/16/19 03/16/20 Rx calcitriol 0.25 mcg capsule 0.25 mcg PO .COMPLEX #30 cap 11/04/19 03/16/20 Rx carvedilol 12.5 mg tablet 12.5 mg PO BID #60 tab 12/26/19 03/16/20 Rx furosemide 20 mg tablet 20 mg PO QAM #30 tab 12/26/19 03/16/20 Rx gabapentin 400 mg capsule 400 mg PO HS #30 cap 12/26/19 03/16/20 Rx ipratropium 0.5 mg-albuterol 3 mg 3 ml INHALATION Q4H PRN #180 ml 12/26/19 03/16/20 Rx (2.5 mg base)/3 mL nebulization soln sertraline 50 mg tablet 50 mg PO DAILY #30 tab 01/03/20 03/16/20 Rx gabapentin 300 mg capsule 300 mg PO HS #90 cap 01/23/20 03/16/20 Rx lovastatin 40 mg tablet 40 mg PO HS #90 tab 01/23/20 03/16/20 Rx pantoprazole 40 mg tablet,delayed 40 mg PO DAILY #90 tab 01/23/20 03/16/20 Rx release neomycin 3.5 mg/g-polymyxin B 1 applic OPHTHALMIC (EYE) TID #3.5 03/06/20 03/16/20 Rx 10,000 unit/g-dexameth 0.1 % eye g oint Past Med/Surg History Medical History Acute UTI (urinary tract infection) Allergy to multiple antibiotics Cardiac pacemaker Cerebellar infarct Chronic renal disease, stage III Depression Diabetes mellitus Extremity atherosclerosis with intermittent claudication Gait instability History of chest pain Hypertension Secondary hyperparathyroidism of renal origin Solitary pulmonary nodule Transient ischemic attack (TIA) Vitamin D deficiency Surgical History History of nasal surgery Family History Other Family history non-contributory Social History Smoking Status: Never smoker Hx Alcohol Use: No Hx Substance Use: No Preferred Language: Indonesian Communication Ability: Effective 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 Crops Required: No Beliefs That Will Affect Care: None marital status: / Current Living Situation: Alone Other Information That Helps Us Care for You: No Feels Safe at Home: Yes Safety Concerns: Feels Safe At This Time Assistive Devices: Glasses Review of Systems Review of Systems: All systems reviewed & are unremarkable except as noted in HPI & below Physical Exam Constitutional: WD/WN, vitals as above Eyes: PERRL, conjunctivae normal, anicteric sclerae ENMT: external ear and nose normal, oropharynx normal Neck: trachea midline, no thyromegaly Respiratory: normal respiratory effort, lungs clear to auscultation Cardiovascular: Rate/Rhythm: regular rate and regular rhythm Heart Sounds: + murmur (Throughout, systolic) Vessels: no JVD Extremities: normal capillary refill; no calf tenderness and no pedal edema Gastrointestinal (Abdomen): normal bowel sounds, soft, nontender, no hepatosplenomegaly Skin: Erythema and swelling of her right flexor entire surface of hand, serosanguineous drainage of proximal part of surgical carpal tunnel wound. Tracking cellulitis to elbow on flexor surface. Extension of any fingers causes severe pain. Neurologic: moves all extremities (See above for right hand) and awake; not confused Psychiatric: A+Ox3, euthymic affect Results & Data Results & Data ([facility]) Vital Signs (Past 12 Hours) Vital Signs Temp Pulse Resp BP Pulse Ox 03/16/20 14:00 71 18 113/42 L 03/16/20 13:30 69 26 H 95/71 L 94 03/16/20 13:01 81 19 151/75 H 99 03/16/20 11:04 37.7 C H 74 16 123/57 L 94 Diagnostic Findings XR chest 1V portable IMPRESSION: No acute process. Medications Administered ER medications given: Daptomycin 175 mg IV Cefepime 2 g IV Acetaminophen 650 mg p.o. ECG Indication: other (Preop) Rate (beats per minute): 63 Rhythm: normal sinus Findings: + other (Lateral T wave flattening), + LBBB, + ST depression (Lateral) and + left axis deviation Comparison ECG Date: from (February 12, 2020) Change: no significant change Code Status & VTE Plan Code Status DNR/DNI per patient wishes VTE Prophylaxis Plan VTE Prophylaxis will be ordered: No Reason for no VTE drug order: Treatment not indicated Reason for no VTE mechanical prophylaxis: Treatment not indicated (Increased falls risk and dubious benefit) PG Care Time/CCT Total # of Minutes Spent Total Time Spent with Patient: Total time spent is greater than 50% in coordination of care (as documented) at patient's floor/unit and/or counseling patient: Coding Level of Care Code 65278 OBS Care - Level 3 Diagnoses Cellulitis of right hand L03.113 Abscess of right hand L02.511 Tenosynovitis of right hand M65.9 Type 2 DM with CKD stage 3 and hypertension E11.22; I12.9; N18.3 Paroxysmal atrial fibrillation I48.0 CAD (coronary artery disease) I25.10 Chronic combined systolic and diastolic CHF (congestive heart failure) I50.42 Neuropathy of both upper extremities G56.93
--- NOTE | 2020-03-16 15:17 | XRay Report ---
XR chest 1V portable HISTORY: 84 years-old Female Pre-op preoperative exam. No acute chest complaints COMPARISON: Chest radiograph 11/27/2019 TECHNIQUE: Portable AP view of the chest FINDINGS: Cardiac silhouette is enlarged. Prior median sternotomy with cardiac valvular prosthesis. Left subcla vian pacer. Chronic interstitial coarsening. No pneumothorax, large pleural effusion or overt pulmona ry edema. No lobar airspace consolidation. Degenerative changes of the shoulders and spine. Widening of the right AC joint. Cholecystectomy. IMPRESSION: No acute process. ACT 112: Negative or not required by law. The above report was generated using voice recognition software. It may contain grammatical, syntax o r spelling errors. Electronically signed by: Andry Alcantar M.D. 03/16/2020 3:16 PM
--- NOTE | 2020-03-16 15:43 | Emergency Department Note ---
Impression & Plan Abscess of hand, right, Cellulitis of right hand, Post-operative complication ED Provider Note NAME: TIM GATES AGE: 84 SEX: F ARRIVES VIA: Walk-In INFORMANT: Patient ED PROVIDER(S): Nevin Marquez MD CHIEF COMPLAINT: R hand redness, throbbing PLAN: Disposition: inpatient Condition: Fair Referral: Hospitalist, Hand surgery MEDICAL DECISION MAKING:Pt was evaluated and appeared to be uncomfortable. IV access was obtained and lab work was drawn. I&D of superficial fluid collection was performed at bedside and significant purulent material was expressed. A cx was obtained. Pt was medicated with IV daptomycin and IV cefepime. She was hydrated with NSS d/t lactate of 2.1. Hand surgery was consulted and the case was d/w the hospitalist for admission and further mangement. Pt was aware of the plan and agreed. Triage Nursing notes reviewed. Prior medical records reviewed Vital Signs: reviewed and remarkable for temp 37.7 Differential diagnosis: Cellulitis, abscess, hematoma, DVT, necrotizing fasciitis, dermatitis, drug eruption, allergic reaction, as well as other pathologies. ER treatment provided: I&D abscess IV daptomycin IV cefepime po tylenol Laboratory studies: See below Consultation(s): Hand surgery, hospitalist HPI: 84/F arrives for evaluation of R hand swelling and pain. Pt states she had a carpal tunnel release 2 weeks ago. 2 days ago the pt noted redness and yesterday it became swollen and red. Pt states it throbs. She was placed on keflex by the hand surgeon. She denies notable fevers at home. Pt has had redness to the mid forearm today. ROS: See above HPI for pertinent positives & negatives. A total of 10 systems reviewed and were otherwise negative. PAST MEDICAL HISTORY:See Below PAST SURGICAL HISTORY:See Below FAMILY HISTORY:See Below SOCIAL HISTORY:See Below HOME MEDICATIONS:See Below ALLERGIES:See Below VITALS:See Below PHYSICAL EXAMINATION: Vital signs reviewed. General: Well-appearing elderly female, in no significant distress. HEENT: No scleral icterus, PERRLA, neck supple. Atraumatic. Cardiovascular: Regular rate and rhythm, systolic ejection murmur. Pulmonary: Clear to auscultation bilaterally, normal work of breathing. Abdomen: Soft, nontender, nondistended, positive bowel sounds. Musculoskeletal: RUE with postsurgical change noted to the R palm. Swelling and erythema are noted with approx 2 cm area of fluctuance and opaque fluid collection supperficially. lymphangitic streaking to mid/proximal forearm. Neurologic: Patient awake alert and oriented x 3 Skin: Warm, dry, RUE as above PROCEDURE: Incision & Drainage Indication: Hand abscess. Location: R hand The skin was prepped with chlorhexadine and a sterile field set. The abscess cavity was entered with an 18 g needle and ~3-4 mL purulent material expressed. A deep wound culture was obtained. No complications and the patient tolerated the procedure well. Nevin Marquez MD Past Med/Surg History Medical History Acute UTI (urinary tract infection) Allergy to multiple antibiotics Anemia Atrial fibrillation Cardiac pacemaker for complete hear block Cerebellar infarct Chronic renal disease, stage III Depression Diabetes mellitus Extremity atherosclerosis with intermittent claudication Gait instability History of chest pain Hypertension Secondary hyperparathyroidism of renal origin Solitary pulmonary nodule Transient ischemic attack (TIA) Vitamin D deficiency Surgical History History of nasal surgery Hx of carpal tunnel repair Family History Other Family history non-contributory Social History Smoking Status: Never smoker Hx Alcohol Use: No Hx Substance Use: No Preferred Language: Kazakh Communication Ability: Effective Cosmetic Chemist Required: No Beliefs That Will Affect Care: None marital status: / Current Living Situation: Alone Other Information That Helps Us Care for You: No Feels Safe at Home: Yes Safety Concerns: Feels Safe At This Time Assistive Devices: Glasses and Wheelchair Allergies Allergies Allergy/AdvReac Type Severity Reaction Status Date / Time tamsulosin Allergy Severe SHORTNESS Verified 03/06/20 13:27 OF BREATH butalbital Allergy Intermediate SHORTNESS Verified 03/06/20 13:27 OF BREATH nitrofurantoin Allergy Unknown Verified 03/06/20 13:27 [From Macrobid] Cephalosporins AdvReac Severe TONGUE Verified 03/16/20 12:09 SWELLING WITH KEFLEX- tolerating keflex 03/16/20 levetiracetam AdvReac Intermediate RASH Verified 03/06/20 13:27 morphine AdvReac Unknown hallucinati Verified 03/06/20 13:27 ons Sulfa (Sulfonamide AdvReac Unknown "SULFA Verified 03/06/20 13:27 Antibiotics) DRUGS" - UNKNOWN Home Meds Home Medications Medication Instructions Recorded Confirmed Combivent Respimat 1 puff INHALATION QID PRN #0 05/08/14 03/16/20 calcium carbonate-vitamin D3 2 tab PO BID #0 03/20/17 03/16/20 [Os-Emile 500 + D3] aspirin 81 mg PO QAM 10/01/18 03/16/20 Eliquis 2.5 mg PO BID 06/15/19 03/16/20 Previous Rx's Medication Instructions Recorded insulin glargine 100 unit/mL (3 15 units SQ DAILY #16 ml 04/02/19 mL) subcutaneous pen valsartan 40 mg tablet 40 mg PO BID #180 tab 10/16/19 calcitriol 0.25 mcg capsule 0.25 mcg PO .COMPLEX #30 cap 11/04/19 carvedilol 12.5 mg tablet 12.5 mg PO BID #60 tab 12/26/19 furosemide 20 mg tablet 20 mg PO QAM #30 tab 12/26/19 gabapentin 400 mg capsule 400 mg PO HS #30 cap 12/26/19 ipratropium 0.5 mg-albuterol 3 mg 3 ml INHALATION Q4H PRN #180 ml 12/26/19 (2.5 mg base)/3 mL nebulization soln sertraline 50 mg tablet 50 mg PO DAILY #30 tab 01/03/20 gabapentin 300 mg capsule 300 mg PO HS #90 cap 01/23/20 lovastatin 40 mg tablet 40 mg PO HS #90 tab 01/23/20 pantoprazole 40 mg tablet,delayed 40 mg PO DAILY #90 tab 01/23/20 release neomycin 3.5 mg/g-polymyxin B 1 applic OPHTHALMIC (EYE) TID #3.5 03/06/20 10,000 unit/g-dexameth 0.1 % eye g oint Results & Data (ED) Vital Signs Vital Signs - 24 hr 03/16/20 11:04 03/16/20 13:01 03/16/20 13:30 Temperature 37.7 C H Temperature Source Temporal Artery Scan Pulse Rate 74 81 69 Pulse Rate from SpO2 Sensor 70 69 Respiratory Rate 16 19 26 H Respiratory Effort / Characteristics Non-Labored Respiratory Depth Normal Respiratory Pattern Regular Blood Pressure 123/57 L 151/75 H 95/71 L Blood Pressure Mean 79 100 79 Blood Pressure Position Sitting Pulse Oximetry 94 99 94 Oxygen Delivery Method Room Air Sepsis Recent Fever Within 48 Hours Yes Sepsis New/Unexplained Change in Mental Status N/A Sepsis Action Taken by Nursing No Action Required 03/16/20 14:00 03/16/20 14:30 03/16/20 15:00 Temperature Temperature Source Pulse Rate 71 68 70 Pulse Rate from SpO2 Sensor 69 71 Respiratory Rate 18 21 26 H Respiratory Effort / Characteristics Respiratory Depth Respiratory Pattern Blood Pressure 113/42 L 127/51 L 122/51 L Blood Pressure Mean 65 76 74 Blood Pressure Position Pulse Oximetry 94 92 Oxygen Delivery Method Sepsis Recent Fever Within 48 Hours Sepsis New/Unexplained Change in Mental Status Sepsis Action Taken by [facility] Medications Current Medication List: was personally reviewed by me Laboratory Data Attestation: I reviewed the patient's lab results. Result diagrams: 03/18/20 07:13 03/18/20 07:13 Lab Results 03/16/20 03/16/20 03/16/20 Range/Units 12:48 12:48 12:48 WBC 9.55 (4.8-10.8) K/uL RBC 3.89 L (4.2-5.4) M/uL Hgb 10.0 L (12.0-16.0) g/dL Hct 32.4 L (37-47) % MCV 83.3 (80-100) fL MCH 25.7 (25-34) pg MCHC 30.9 L (32-36) g/dL RDW Std Deviation 54.8 H (36.4-46.3) fL RDW Coeff of Carlos 17.9 H (11.5-14.5) % Plt Count 162 (130-400) K/uL MPV 10.7 H (7.4-10.4) fL Immature Gran % (Auto) 0.3 % Neut % (Auto) 79.6 % Lymph % (Auto) 15.1 % Barber % (Auto) 4.6 % Eos % (Auto) 0.3 % Baso % (Auto) 0.1 % Neut # (Auto) 7.60 H (1.4-6.5) K/uL Lymph # (Auto) 1.44 (1.2-3.4) K/uL Barber # (Auto) 0.44 (0.11-0.59) K/uL Eos # (Auto) 0.03 (0-0.5) K/uL Baso # (Auto) 0.01 (0-0.2) K/uL Immature Gran # (Auto) 0.03 H (0.00-0.02) K/uL Sodium 136 (136-145) mmol/L Potassium 3.7 (3.5-5.1) mmol/L Chloride 101 (98-107) mmol/L Carbon Dioxide 30 (21-32) mmol/L Anion Gap 6.0 (3-11) BUN 23 H (7-18) mg/dl Creatinine 1.44 H (0.6-1.2) mg/dl Est Cr Clr Drug Dosing Not Reportable Est GFR ( Amer) 38.0 Est GFR (Non-Af Amer) 32.8 BUN/Creatinine Ratio 16.0 (10-20) Glucose 149 H (70-99) mg/dl POC Glucose (70-99) mg/dl Estimat Average Glucose mg/dl Hemoglobin A1c (4.5-5.6) % Lactate 2.1 H* (0.4-2.0) mmol/L Calcium 9.3 (8.5-10.1) mg/dl Total Bilirubin 0.7 (0.2-1) mg/dl AST 11 L (15-37) U/L ALT 12 (12-78) U/L Alkaline Phosphatase 84 (45-117) U/L Total Protein 8.0 (6.4-8.2) gm/dl Albumin 3.4 (3.4-5.0) gm/dl Globulin 4.6 H (2.5-4.0) gm/dl Albumin/Globulin Ratio 0.7 L (0.9-2) COVID-19 Eval Order SARS-CoV-2, RNA, NAAT (NEGATIVE) 03/16/20 03/16/20 03/16/20 Range/Units 14:34 14:34 14:43 WBC (4.8-10.8) K/uL RBC (4.2-5.4) M/uL Hgb (12.0-16.0) g/dL Hct (37-47) % MCV (80-100) fL MCH (25-34) pg MCHC (32-36) g/dL RDW Std Deviation (36.4-46.3) fL RDW Coeff of Carlos (11.5-14.5) % Plt Count (130-400) K/uL MPV (7.4-10.4) fL Immature Gran % (Auto) % Neut % (Auto) % Lymph % (Auto) % Barber % (Auto) % Eos % (Auto) % Baso % (Auto) % Neut # (Auto) (1.4-6.5) K/uL Lymph # (Auto) (1.2-3.4) K/uL Barber # (Auto) (0.11-0.59) K/uL Eos # (Auto) (0-0.5) K/uL Baso # (Auto) (0-0.2) K/uL Immature Gran # (Auto) (0.00-0.02) K/uL Sodium (136-145) mmol/L Potassium (3.5-5.1) mmol/L Chloride (98-107) mmol/L Carbon Dioxide (21-32) mmol/L Anion Gap (3-11) BUN (7-18) mg/dl Creatinine (0.6-1.2) mg/dl Est Cr Clr Drug Dosing Est GFR ( Amer) Est GFR (Non-Af Amer) BUN/Creatinine Ratio (10-20) Glucose (70-99) mg/dl POC Glucose (70-99) mg/dl Estimat Average Glucose mg/dl Hemoglobin A1c (4.5-5.6) % Lactate 1.3 (0.4-2.0) mmol/L Calcium (8.5-10.1) mg/dl Total Bilirubin (0.2-1) mg/dl AST (15-37) U/L ALT (12-78) U/L Alkaline Phosphatase (45-117) U/L Total Protein (6.4-8.2) gm/dl Albumin (3.4-5.0) gm/dl Globulin (2.5-4.0) gm/dl Albumin/Globulin Ratio (0.9-2) COVID-19 Eval [facility] SARS-CoV-2, RNA, NAAT NEGATIVE (NEGATIVE) 03/16/20 03/16/20 03/17/20 Range/Units 16:35 20:27 06:54 WBC 6.72 (4.8-10.8) K/uL RBC 3.41 L (4.2-5.4) M/uL Hgb 8.9 L (12.0-16.0) g/dL Hct 28.2 L (37-47) % MCV 82.7 (80-100) fL MCH 26.1 (25-34) pg MCHC 31.6 L (32-36) g/dL RDW Std Deviation 54.8 H (36.4-46.3) fL RDW Coeff of Carlos 17.9 H (11.5-14.5) % Plt Count 144 (130-400) K/uL MPV 11.1 H (7.4-10.4) fL Immature Gran % (Auto) 0.3 % Neut % (Auto) 70.4 % Lymph % (Auto) 21.0 % Barber % (Auto) 6.7 % Eos % (Auto) 1.5 % Baso % (Auto) 0.1 % Neut # (Auto) 4.73 (1.4-6.5) K/uL Lymph # (Auto) 1.41 (1.2-3.4) K/uL Barber # (Auto) 0.45 (0.11-0.59) K/uL Eos # (Auto) 0.10 (0-0.5) K/uL Baso # (Auto) 0.01 (0-0.2) K/uL Immature Gran # (Auto) 0.02 (0.00-0.02) K/uL Sodium (136-145) mmol/L Potassium (3.5-5.1) mmol/L Chloride (98-107) mmol/L Carbon Dioxide (21-32) mmol/L Anion Gap (3-11) BUN (7-18) mg/dl Creatinine (0.6-1.2) mg/dl Est Cr Clr Drug Dosing Est GFR ( Amer) Est GFR (Non-Af Amer) BUN/Creatinine Ratio (10-20) Glucose (70-99) mg/dl POC Glucose 122 H 194 H (70-99) mg/dl Estimat Average Glucose mg/dl Hemoglobin A1c (4.5-5.6) % Lactate (0.4-2.0) mmol/L Calcium (8.5-10.1) mg/dl Total Bilirubin (0.2-1) mg/dl AST (15-37) U/L ALT (12-78) U/L Alkaline Phosphatase (45-117) U/L Total Protein (6.4-8.2) gm/dl Albumin (3.4-5.0) gm/dl Globulin (2.5-4.0) gm/dl Albumin/Globulin Ratio (0.9-2) COVID-19 Eval Order SARS-CoV-2, RNA, NAAT (NEGATIVE) 03/17/20 03/17/20 03/17/20 Range/Units 06:54 06:54 07:59 WBC (4.8-10.8) K/uL RBC (4.2-5.4) M/uL Hgb (12.0-16.0) g/dL Hct (37-47) % MCV (80-100) fL MCH (25-34) pg MCHC (32-36) g/dL RDW Std Deviation (36.4-46.3) fL RDW Coeff of Carlos (11.5-14.5) % Plt Count (130-400) K/uL MPV (7.4-10.4) fL Immature Gran % (Auto) % Neut % (Auto) % Lymph % (Auto) % Barber % (Auto) % Eos % (Auto) % Baso % (Auto) % Neut # (Auto) (1.4-6.5) K/uL Lymph # (Auto) (1.2-3.4) K/uL Barber # (Auto) (0.11-0.59) K/uL Eos # (Auto) (0-0.5) K/uL Baso # (Auto) (0-0.2) K/uL Immature Gran # (Auto) (0.00-0.02) K/uL Sodium 139 (136-145) mmol/L Potassium 3.5 (3.5-5.1) mmol/L Chloride 106 (98-107) mmol/L Carbon Dioxide 26 (21-32) mmol/L Anion Gap 7.0 (3-11) BUN 25 H (7-18) mg/dl Creatinine 1.49 H (0.6-1.2) mg/dl Est Cr Clr Drug Dosing 21.1 Est GFR ( Amer) 36.5 Est GFR (Non-Af Amer) 31.5 BUN/Creatinine Ratio 16.8 (10-20) Glucose 140 H (70-99) mg/dl POC Glucose 155 H (70-99) mg/dl Estimat Average Glucose 151 mg/dl Hemoglobin A1c 6.9 H (4.5-5.6) % Lactate (0.4-2.0) mmol/L Calcium 9.2 (8.5-10.1) mg/dl Total Bilirubin (0.2-1) mg/dl AST (15-37) U/L ALT (12-78) U/L Alkaline Phosphatase (45-117) U/L Total Protein (6.4-8.2) gm/dl Albumin (3.4-5.0) gm/dl Globulin (2.5-4.0) gm/dl Albumin/Globulin Ratio (0.9-2) COVID-19 Eval Order SARS-CoV-2, RNA, NAAT (NEGATIVE) Administered Medications Acetaminophen (Acetaminophen 325 Mg Tab) 650 mg PO Q4H PRN PRN Reason: pain/fever Stop: 04/15/20 16:37 Last Admin: 03/16/20 21:14 Dose: 650 mg Documented by: [id number] Admin: 03/16/20 17:09 Dose: 650 mg Documented by: [id number] Albuterol (Albuterol Hfa 8 Gm Inhaler) 1 puffs INH QIDR PRN PRN Reason: Shortness of breath or wheezing Stop: 04/15/20 18:59 Last Admin: 03/18/20 09:20 Dose: 1 puffs Documented by: [id number] Aspirin (Aspirin 81 Mg Ectab) [facility] Stop: 04/16/20 08:59 Last Admin: 03/18/20 09:04 Dose: 81 mg Documented by: [id number] Admin: 03/17/20 08:06 Dose: 81 mg Documented by: [id number] Calcitriol (Calcitriol 0.25 Mcg Capsule) 0.25 mcg PO MoWeFr@0900 [facility] Stop: 04/17/20 08:59 Last Admin: 03/18/20 09:04 Dose: 0.25 mcg Documented by: [id number] Carvedilol (Carvedilol 12.5 Mg Tab) 12.5 mg PO BID [facility] Stop: 04/15/20 20:59 Last Admin: 03/18/20 09:04 Dose: 12.5 mg Documented by: [id number] Admin: 03/17/20 21:18 Dose: 12.5 mg Documented by: [id number] Admin: 03/17/20 08:06 Dose: 12.5 mg Documented by: [id number] Admin: 03/16/20 20:18 Dose: 12.5 mg Documented by: [id number] Gabapentin (Gabapentin 400 Mg Cap) 400 mg PO [facility] Stop: 04/15/20 20:59 Last Admin: 03/17/20 21:18 Dose: 400 mg Documented by: [id number] Admin: 03/16/20 20:18 Dose: 400 mg Documented by: [id number] Gabapentin (Gabapentin 300 Mg Cap) 300 mg PO [facility] Stop: 04/15/20 20:59 Last Admin: 03/17/20 21:18 Dose: 300 mg Documented by: [id number] Admin: 03/16/20 20:18 Dose: 300 mg Documented by: [id number] Daptomycin 200 mg/ Syringe 4 mls @ 2 mls/min IV Q48H [facility]; Protocol Stop: 03/23/20 13:59 Last Admin: 03/18/20 13:29 Dose: 2 mls/min Documented by: [id number] Insulin Glargine (Insulin Glargine Solostar 100 Units/Ml 3 Ml Pen) 0 - 8 units SC BID [facility] Stop: 04/16/20 08:59 Last Admin: 03/18/20 09:04 Dose: 4 units Documented by: [id number] Cosigned by: [id number] Admin: 03/17/20 21:26 Dose: 8 units Documented by: [id number] Cosigned by: [id number] Admin: 03/17/20 09:05 Dose: 8 units Documented by: [id number] Cosigned by: [id number] Ipratropium [place] (Ipratropium Hfa Inhaler (Combivent Respimat P&T Subs)) 1 puffs INH QIDR PRN PRN Reason: Shortness Of Breath Or Wheezing Stop: 04/15/20 22:58 Last Admin: 03/18/20 09:19 Dose: 1 puffs Documented by: [id number] Multivitamins/Minerals (Calcium 600mg + Vit D 400 Iu Tab) 1 tab PO BID [facility] Stop: 04/15/20 20:59 Last Admin: 03/18/20 09:04 Dose: 1 tab Documented by: [id number] Admin: 03/17/20 21:18 Dose: 1 tab Documented by: [id number] Admin: 03/17/20 08:06 Dose: 1 tab Documented by: [id number] Admin: 03/16/20 20:19 Dose: 1 tab Documented by: [id number] Pantoprazole Sodium (Pantoprazole 40 Mg Tab) 40 mg PO DAILY [facility] Stop: 04/16/20 08:59 Last Admin: 03/18/20 09:04 Dose: 40 mg Documented by: [id number] Admin: 03/17/20 08:06 Dose: 40 mg Documented by: [id number] Sertraline HCl (Sertraline Hcl 50 Mg Tablet) 50 mg PO DAILY [facility] Stop: 04/16/20 08:59 Last Admin: 03/18/20 09:04 Dose: 50 mg Documented by: [id number] Admin: 03/17/20 08:06 Dose: 50 mg Documented by: [id number] Tramadol HCl (Tramadol Hcl 50 Mg Tablet) 50 - 100 mg PO Q4H PRN; Protocol PRN Reason: Pain Stop: 04/15/20 16:45 Last Admin: 03/18/20 09:12 Dose: 100 mg Documented by: [id number] Admin: 03/17/20 08:05 Dose: 50 mg Documented by: [id number] Admin: 03/17/20 03:03 Dose: 50 mg Documented by: [id number] Admin: 03/16/20 21:14 Dose: 50 mg Documented by: [id number] Admin: 03/16/20 17:09 Dose: 50 mg Documented by: [id number] Discontinued Medications Acetaminophen (Acetaminophen 325 Mg Tab) 650 mg PO NOW STA Stop: 03/16/20 12:04 Last Admin: 03/16/20 13:07 Dose: 650 mg Documented by: [id number] Albuterol (Albuterol Hfa 8 Gm Inhaler (Combivent Respimat P&T Subs)) 1 puffs INH QIDR TAMMIE Stop: 04/15/20 18:59 Last Admin: 03/16/20 21:57 Dose: 1 puffs Documented by: [id number] Bacitracin (Bacitracin Inj 50,000 Unit Vial) Confirm Administered Dose 50,000 units .ROUTE .STK-MED ONE Stop: 03/18/20 14:41 Last Admin: 03/18/20 16:21 Dose: 50,000 units Documented by: [id number] Bupivacaine HCl (Bupivacaine 0.5 % 5 Mg/1 Ml Mpf 30ml Vial) Confirm Administered Dose 30 ml .ROUTE .STK-MED ONE Stop: 03/18/20 14:41 Last Admin: 03/18/20 16:22 Dose: 5 ml Documented by: [id number] Gadobutrol (Gadobutrol 65ml Vial) 5.5 ml IV ONCE ONE Stop: 03/17/20 14:11 Last Admin: 03/17/20 14:10 Dose: 5.5 ml Documented by: [id number] Daptomycin 175 mg/ Syringe 3.5 mls @ 1.75 mls/min IV NOW ONE; Protocol Stop: 03/16/20 12:04 Last Admin: 03/16/20 13:09 Dose: 1.75 mls/min Documented by: [id number] Cefepime HCl (Maxipime) 2,000 mg in 20 mls @ 5 mls/min IV NOW STA; Protocol Stop: 03/16/20 12:10 Last Admin: 03/16/20 13:20 Dose: 5 mls/min Documented by: [id number] Sodium Chloride (Nss) 250 mls @ 999 mls/hr IV .Q16M ONE Stop: 03/16/20 13:51 Last Infusion: 03/16/20 14:13 Dose: 0 mls/hr Documented by: [id number] Admin: 03/16/20 13:58 Dose: 999 mls/hr Documented by: [id number] Sodium Chloride (Nss) 500 mls @ 80 mls/hr IV .[id number] TAMMIE Stop: 04/15/20 13:44 Last Admin: 03/17/20 09:17 Dose: Not Given Documented by: [id number] Infusion: 03/17/20 09:02 Dose: 0 mls/hr Documented by: [id number] Infusion: 03/17/20 05:57 Dose: 80 mls/hr Documented by: [id number] Admin: 03/17/20 03:01 Dose: 80 mls/hr Documented by: [id number] Infusion: 03/17/20 02:28 Dose: 80 mls/hr Documented by: [id number] Admin: 03/16/20 20:13 Dose: 80 mls/hr Documented by: [id number] Infusion: 03/16/20 20:13 Dose: 80 mls/hr Documented by: [id number] Admin: 03/16/20 14:13 Dose: 80 mls/hr Documented by: [id number] Ceftriaxone Sodium 2,000 mg/ (Dextrose) 70 mls @ 100 mls/hr IV Q24H TAMMIE; Protocol Stop: 03/18/20 19:00 Last Infusion: 03/18/20 17:27 Dose: 0 mls/hr Documented by: [id number] Admin: 03/18/20 16:02 Dose: 100 mls/hr Documented by: [id number] Infusion: 03/17/20 22:20 Dose: 0 mls/hr Documented by: [id number] Admin: 03/17/20 21:21 Dose: 100 mls/hr Documented by: [id number] Infusion: 03/17/20 00:00 Dose: 0 mls/hr Documented by: [id number] Admin: 03/16/20 21:43 Dose: 100 mls/hr Documented by: [id number] Sodium Chloride (Nss) 1,000 mls @ 80 mls/hr IV .[id number] TAMMIE Stop: 04/16/20 09:14 Last Admin: 03/18/20 11:35 Dose: Not Given Documented by: [id number] Infusion: 03/18/20 11:30 Dose: 0 mls/hr Documented by: [id number] Infusion: 03/18/20 07:26 Dose: 80 mls/hr Documented by: [id number] Admin: 03/18/20 00:10 Dose: 80 mls/hr Documented by: [id number] Infusion: 03/18/20 00:10 Dose: 80 mls/hr Documented by: [id number] Infusion: 03/17/20 22:21 Dose: 80 mls/hr Documented by: [id number] Infusion: 03/17/20 20:54 Dose: 80 mls/hr Documented by: [id number] Infusion: 03/17/20 20:08 Dose: 0 mls/hr Documented by: [id number] Infusion: 03/17/20 14:42 Dose: 80 mls/hr Documented by: [id number] Infusion: 03/17/20 13:11 Dose: 0 mls/hr Documented by: [id number] Admin: 03/17/20 09:19 Dose: 80 mls/hr Documented by: [id number] Furosemide 40 mg/ Syringe 4 mls @ 4 mls/min IV ONE ONE Stop: 03/18/20 09:31 Last Admin: 03/18/20 09:15 Dose: 4 mls/min Documented by: [id number] Insulin Aspart (Insulin Aspart 100 Units/Ml 3 Ml Pen) 0 units SC ACHS [facility] Stop: 04/15/20 18:29 Last Admin: 03/17/20 21:26 Dose: 1 units Documented by: [id number] Cosigned by: [id number] Admin: 03/17/20 17:41 Dose: 1 units Documented by: [id number] Cosigned by: [id number] Admin: 03/17/20 13:06 Dose: 3 units Documented by: [id number] Cosigned by: [id number] Admin: 03/17/20 09:03 Dose: 3 units Documented by: [id number] Cosigned by: [id number] Admin: 03/16/20 21:06 Dose: 3 units Documented by: [id number] Cosigned by: [id number] Admin: 03/16/20 18:28 Dose: Not Given Documented by: [id number] Cosigned by: [id number] Insulin Aspart (Insulin Aspart 100 Units/Ml 3 Ml Pen) 0 units SC Q6 [facility] Stop: 04/17/20 05:59 Last Admin: 03/18/20 18:13 Dose: Not Given Documented by: [id number] Cosigned by: [id number] Admin: 03/18/20 13:22 Dose: Not Given Documented by: [id number] Cosigned by: [id number] Admin: 03/18/20 06:08 Dose: Not Given Documented by: [id number] Cosigned by: [id number] Insulin Glargine (Insulin Glargine Solostar 100 Units/Ml 3 Ml Pen) 8 units SC QPM [facility] Stop: 04/15/20 20:59 Last Admin: 03/16/20 21:07 Dose: 8 units Documented by: [id number] Cosigned by: [id number] Ipratropium [place] (Ipratropium Hfa Inhaler (Combivent Respimat P&T Subs)) 1 puffs INH QIDR [facility] Stop: 04/15/20 18:59 Last Admin: 03/16/20 21:58 Dose: 1 puffs Documented by: [id number] Miscellaneous ( Floseal Hemostatic Matrix 5ml) 5 ml TOP ONCE ONE Stop: 03/18/20 16:22 Last Admin: 03/18/20 16:24 Dose: 1 ml Documented by: [id number] Discharge Plan Visit Data Chief Complaint: Swelling/Edema to Extremity Stated Complaint: HAND SWELLING/POSS INFECTION ED Provider: Nevin Marquez Discharge Problem: Abscess of hand, right, Cellulitis of right hand, Post-operative complication Patient Disposition: Admitted As Inpatient Discharge Instructions Interventions: ED Discharge Assessment Last Done: 03/16/20 16:19 Discharge Problem: Post-operative complication Qualifiers: Surgical complication system/body Area: skin Surgical complication type: unspecified Procedure type: dermatologic Qualified Code(s): L76.82 - Other postprocedural complications of skin and subcutaneous tissue
[2020-03-16] MEDS: ACETAMINOPHEN 325 MG TAB PO PRN ×2 (17:09→21:14)
[2020-03-16] MEDS: traMADol HCL 50 MG TABLET PO PRN ×2 (17:09→21:14)
--- NOTE | 2020-03-16 17:50 | Consultation Report ---
DATE OF CONSULTATION: 03/16/2020 ORTHOPEDIC HAND SURGERY CONSULTATION HISTORY OF PRESENT ILLNESS: This is a patient known to me. She is approximately 2 weeks status post right carpal tunnel release. She notes increased pain and swelling over the past few days. She states the symptoms began on Monday. She notes some drainage from her incision. I saw her in the office approximately 1 week ago. She did have a moderate amount of ecchymosis in the wrist, hand and forearm. I felt this was likely due to her being on a blood thinner. At that point in time, she did not have active evidence of infection. She, however, has been on Keflex for the past day or two. She is currently admitted to the hospitalist service on daptomycin and cefepime for cellulitis. PHYSICAL EXAMINATION: Right wrist exam shows healing incision of carpal tunnel. She has a small amount of serosanguineous drainage in the region of the incision. She has significant swelling extending up to the volar wrist approximately 2 cm proximal to the wrist flexion crease. She has pain with flexion and extension of the digits. She has moderate swelling globally about the hand. MEDICATIONS: Include insulin and Eliquis as well as gabapentin. ASSESSMENT: An 84-year-old female with: 1. Status post right carpal tunnel release. 2. Rule out right wrist infection, deep space. PLAN: I discussed findings and treatment with her. I am concerned she may have a deep postoperative infection. We will continue antibiotics. We will follow her clinical course. I will obtain an MRI for evaluation to see if she has evidence of infection in the carpal tunnel. If unable to do MRI, ultrasound may be a second option. It is possible she may benefit from irrigation and debridement. At this point, she had her last dose of Eliquis this morning. We will have her hold antibiotics, may tentatively consider I and D on Monday once blood thinners have completely worn off. We will continue to follow.
[2020-03-16] MEDS ORDERED: IPRATROPIUM BROMIDE/ALBUTEROL respimat INH INH PRN (18:07)
[2020-03-16] MEDS ORDERED: GLUCOSE 40% GEL 15 GM TUBE PO PRN (18:09)
[2020-03-16] MEDS ORDERED: GLUCAGON FOR INJ 1 MG VIAL SQ PRN (18:09)
[2020-03-16] MEDS ORDERED: GLUCOSE 10 TABS/TUBE PO PRN (18:09)
[2020-03-16] MEDS ORDERED: DEXTROSE 50% 50 ML SYRINGE IV PRN (18:09)
[2020-03-16] MEDS ORDERED: CARBOHYDRATES FOR HYPOGLYCEMIA PO PRN (18:09)
[2020-03-16] MEDS: INSULIN ASPART 100 UNITS/ML 3 ML PEN SC SCH ×2 (18:28→21:06)
[2020-03-16] MEDS ORDERED: Albuterol HFA 8 GM Inhaler (Combivent Respimat P&T Subs) INH SCH (19:00)
[2020-03-16] MEDS ORDERED: Ipratropium HFA Inhaler (Combivent Respimat P&T Subs) INH SCH (19:00)
[2020-03-16] MEDS: GABAPENTIN 400 MG CAP PO SCH (20:18)
[2020-03-16] MEDS: GABAPENTIN 300 MG CAP PO SCH (20:18)
[2020-03-16] MEDS: carvediloL 12.5 MG TAB PO SCH (20:18)
[2020-03-16] MEDS: CALCIUM 600MG + VIT D 400 IU TAB PO SCH (20:19)
[2020-03-16] MEDS ORDERED: INSULIN GLARGINE SOLOSTAR 100 UNITS/ML 3 ML PEN SC SCH (21:00)
[2020-03-16] MEDS: cefTRIAXone SODIUM 2,000 MG in DEXTROSE 5% 50 ML IV SCH (21:43)
[2020-03-16] MEDS ORDERED: ALBUTEROL HFA 8 GM INHALER INH PRN (22:57)
[2020-03-16] MEDS ORDERED: Ipratropium HFA Inhaler (Combivent Respimat P&T Subs) INH PRN (22:59)
[2020-03-17] MEDS: SODIUM CHLORIDE 0.9% 500 ML IV SCH ×2 (03:01→09:17)
[2020-03-17] MEDS: traMADol HCL 50 MG TABLET PO PRN ×2 (03:03→08:05)
[2020-03-17 07:35] LABS: Basophils # (auto) 0.01 K/uL (0-0.2); Basophils % (auto) 0.1 %; Eosinophils % (auto) 1.5 %; Hematocrit (blood only) 28.2 % (37-47); Hemoglobin 8.9 g/dL (12.0-16.0); Immature Granulocytes # (auto) 0.02 K/uL (0.00-0.02); Immature Granulocytes % (auto) 0.3 %; Lymphocytes # (auto) 1.41 K/uL (1.2-3.4); Mean Corpuscular Hemoglobin 26.1 pg (25-34); Mean Corpuscular Hgb Conc 31.6 g/dL (32-36); Mean Corpuscular Volume 82.7 fL (80-100); Mean Platelet Volume 11.1 fL (7.4-10.4); Monocytes # (auto) 0.45 K/uL (0.11-0.59); Monocytes % (auto) 6.7 %; Neutrophils # (auto) 4.73 K/uL (1.4-6.5); Neutrophils % (auto) 70.4 %; Platelet Count 144 K/uL (130-400); RDW Coefficient of Variation 17.9 % (11.5-14.5); RDW Standard Deviation 54.8 fL (36.4-46.3); Red Blood Count 3.41 M/uL (4.2-5.4); White Blood Count 6.72 K/uL (4.8-10.8)
[2020-03-17 08:02] LABS: Estimated Average Glucose 151 mg/dl; Hemoglobin A1C 6.9 % (4.5-5.6)
[2020-03-17 08:04] LABS: BUN Creatinine Ratio 16.8 (10-20); Calcium 9.2 mg/dl (8.5-10.1); Creatinine Clr Calc Pharmacy 21.1 ml/min; Est GFR (African American) 36.5; Est GFR (Non-African American) 31.5; Potassium 3.5 mmol/L (3.5-5.1)
[2020-03-17] MEDS: SERTRALINE HCL 50 MG TABLET PO SCH (08:06)
[2020-03-17] MEDS: carvediloL 12.5 MG TAB PO SCH ×2 (08:06→21:18)
[2020-03-17] MEDS: PANTOprazole 40 MG TAB PO SCH (08:06)
[2020-03-17] MEDS: CALCIUM 600MG + VIT D 400 IU TAB PO SCH ×2 (08:06→21:18)
[2020-03-17] MEDS: ASPIRIN 81 MG ECTAB PO SCH (08:06)
[2020-03-17] MEDS: INSULIN ASPART 100 UNITS/ML 3 ML PEN SC SCH ×4 (09:03→21:26)
[2020-03-17] MEDS: INSULIN GLARGINE SOLOSTAR 100 UNITS/ML 3 ML PEN SC SCH ×2 (09:05→21:26)
[2020-03-17] MEDS: SODIUM CHLORIDE 0.9% 1,000 ML IV SCH (09:19)
--- NOTE | 2020-03-17 12:20 | Hospitalist Progress Note ---
Date of Service March 17, 2020 Assessment & Plan (1) Cellulitis of right hand: Status post carpal tunnel surgery continue IV daptomycin and ceftriaxone, no fever, WBC normal MRI right wrist with fluid collection, possible deep infection, tenosynovitis make NPO after midnight for possible I&D tomorrow Follow-up blood and wound cultures staph species growing from hand, blood cultures no growth so far Elevate right upper extremity Consult orthopedics - Dr. Montiel (2) Abscess of right hand: Superficial abscess drained in ER. Wound culture taken with rare gram- positive cocci -- staph species growing daptomycin and ceftriaxone (3) Tenosynovitis of right hand: Management as above. plan for OR, potentially tomorrow (4) Type 2 DM with CKD stage 3 and hypertension: HbA1c 6.9% Switch her usual dosing of Lantus 15 units every afternoon to 8 units twice daily with hold parameters. NovoLog sliding scale for correction and carb coverage. monitor for hypoglycemia, no episodes (5) Paroxysmal atrial fibrillation: Hold anticoagulation due to likely need for I&D (6) CAD (coronary artery disease): Continue aspirin, carvedilol. Holding lovastatin due to daptomycin use. Holding Eliquis due to possible need for surgery. (7) Chronic combined systolic and diastolic CHF (congestive heart failure): will give a dose of Lasix tomorrow AM to keep her dry (8) Neuropathy of both upper extremities: Continue gabapentin 700 mg p.o. at bedtime Admission and Anticipated Discharge Date Admission Date: March 17, 2020 Subjective patient says the swelling in right hand and wrist is decreased no fever, no chills, minimal pain in right hand eating well, no dyspnea, no chest pain, no nausea/vomiting WBC 6k, Hb 8.9, Cr 1.49 and electrolytes stable reviewed MRI of the wrist, possible fluid collections, deep infection will make NPO after midnight in case Dr. Montiel wants to take to the OR Review of Systems Review of Systems: All systems reviewed & are unremarkable except as noted in Subjective Musculoskeletal: + joint pain (right wrist and hand) Physical Exam Constitutional: WD/WN, vitals as above no acute distress Neck: trachea midline, no thyromegaly Respiratory: normal respiratory effort, lungs clear to auscultation Cardiovascular: RRR, no murmur, no edema Gastrointestinal (Abdomen): normal bowel sounds, soft, nontender, no hepatosplenomegaly Musculoskeletal: Head/Neck/Chest: normocephalic, head atraumatic and neck supple Extremities: + joint enlargement (right wrist) and strength 5/5 throughout; no cyanosis, no clubbing and no petechiae Skin: + erythema (right wrist and hand) Neurologic: patellar DTR's 2+ bilat, sensation intact and PERRL, EOMI, accommodation nl, no face palsy, no dysarthria Psychiatric: A+Ox3, euthymic affect Lymphatic: no cervical or axillary lymphadenopathy Results & Data Results & Data ([facility]) Vital Signs (Past 12 Hours) Vital Signs Temp Pulse Resp BP Pulse Ox 03/17/20 07:27 36.8 C 72 18 149/64 H 93 Laboratory Results Laboratory Results - last 24 hr 03/16/20 03/16/20 03/16/20 12:48 12:48 12:48 WBC 9.55 RBC 3.89 L Hgb 10.0 L Hct 32.4 L MCV 83.3 MCH 25.7 MCHC 30.9 L RDW Std Deviation 54.8 H RDW Coeff of Carlos 17.9 H Plt Count 162 MPV 10.7 H Immature Gran % (Auto) 0.3 Neut % (Auto) 79.6 Lymph % (Auto) 15.1 [place] % (Auto) 4.6 Eos % (Auto) 0.3 Baso % (Auto) 0.1 Neut # (Auto) 7.60 H Lymph # (Auto) 1.44 [place] # (Auto) 0.44 Eos # (Auto) 0.03 Baso # (Auto) 0.01 Immature Gran # (Auto) 0.03 H Sodium 136 Potassium 3.7 Chloride 101 Carbon Dioxide 30 Anion Gap 6.0 BUN 23 H Creatinine 1.44 H Est Cr Clr Drug Dosing Not Reportable Est GFR ( Amer) 38.0 Est GFR (Non-Af Amer) 32.8 BUN/Creatinine Ratio 16.0 Glucose 149 H POC Glucose Estimat Average Glucose Hemoglobin A1c Lactate 2.1 H* Calcium 9.3 Total Bilirubin 0.7 AST 11 L ALT 12 Alkaline Phosphatase 84 Total Protein 8.0 Albumin 3.4 Globulin 4.6 H Albumin/Globulin Ratio 0.7 L COVID-19 Eval Order SARS-CoV-2, RNA, NAAT 03/16/20 03/16/20 03/16/20 14:34 14:34 14:43 WBC RBC Hgb Hct MCV MCH MCHC RDW Std Deviation RDW Coeff of Carlos Plt Count MPV Immature Gran % (Auto) Neut % (Auto) Lymph % (Auto) [place] % (Auto) Eos % (Auto) Baso % (Auto) Neut # (Auto) Lymph # (Auto) [place] # (Auto) Eos # (Auto) Baso # (Auto) Immature Gran # (Auto) Sodium Potassium Chloride Carbon Dioxide Anion Gap BUN Creatinine Est Cr Clr Drug Dosing Est GFR ( Amer) Est GFR (Non-Af Amer) BUN/Creatinine Ratio Glucose POC Glucose Estimat Average Glucose Hemoglobin A1c Lactate 1.3 Calcium Total Bilirubin AST ALT Alkaline Phosphatase Total Protein Albumin Globulin Albumin/Globulin Ratio COVID-19 Eval Order Covid19 IDNow [facility] SARS-CoV-2, RNA, NAAT NEGATIVE 03/16/20 03/16/20 03/17/20 16:35 20:27 06:54 WBC 6.72 RBC 3.41 L Hgb 8.9 L Hct 28.2 L MCV 82.7 MCH 26.1 MCHC 31.6 L RDW Std Deviation 54.8 H RDW Coeff of Carlos 17.9 H Plt Count 144 MPV 11.1 H Immature Gran % (Auto) 0.3 Neut % (Auto) 70.4 Lymph % (Auto) 21.0 [place] % (Auto) 6.7 Eos % (Auto) 1.5 Baso % (Auto) 0.1 Neut # (Auto) 4.73 Lymph # (Auto) 1.41 [place] # (Auto) 0.45 Eos # (Auto) 0.10 Baso # (Auto) 0.01 Immature Gran # (Auto) 0.02 Sodium Potassium Chloride Carbon Dioxide Anion Gap BUN Creatinine Est Cr Clr Drug Dosing Est GFR ( Amer) Est GFR (Non-Af Amer) BUN/Creatinine Ratio Glucose POC Glucose 122 H 194 H Estimat Average Glucose Hemoglobin A1c Lactate Calcium Total Bilirubin AST ALT Alkaline Phosphatase Total Protein Albumin Globulin Albumin/Globulin Ratio COVID-19 Eval Order SARS-CoV-2, RNA, NAAT 03/17/20 03/17/20 03/17/20 06:54 06:54 07:59 WBC RBC Hgb Hct MCV MCH MCHC RDW Std Deviation RDW Coeff of Carlos Plt Count MPV Immature Gran % (Auto) Neut % (Auto) Lymph % (Auto) [place] % (Auto) Eos % (Auto) Baso % (Auto) Neut # (Auto) Lymph # (Auto) [place] # (Auto) Eos # (Auto) Baso # (Auto) Immature Gran # (Auto) Sodium 139 Potassium 3.5 Chloride 106 Carbon Dioxide 26 Anion Gap 7.0 BUN 25 H Creatinine 1.49 H Est Cr Clr Drug Dosing 21.1 Est GFR ( Amer) 36.5 Est GFR (Non-Af Amer) 31.5 BUN/Creatinine Ratio 16.8 Glucose 140 H POC Glucose 155 H Estimat Average Glucose 151 Hemoglobin A1c 6.9 H Lactate Calcium 9.2 Total Bilirubin AST ALT Alkaline Phosphatase Total Protein Albumin Globulin Albumin/Globulin Ratio COVID-19 Eval Order SARS-CoV-2, RNA, NAAT 03/17/20 12:02 WBC RBC Hgb Hct MCV MCH MCHC RDW Std Deviation RDW Coeff of Carlos Plt Count MPV Immature Gran % (Auto) Neut % (Auto) Lymph % (Auto) [place] % (Auto) Eos % (Auto) Baso % (Auto) Neut # (Auto) Lymph # (Auto) [place] # (Auto) Eos # (Auto) Baso # (Auto) Immature Gran # (Auto) Sodium Potassium Chloride Carbon Dioxide Anion Gap BUN Creatinine Est Cr Clr Drug Dosing Est GFR ( Amer) Est GFR (Non-Af Amer) BUN/Creatinine Ratio Glucose POC Glucose 156 H Estimat Average Glucose Hemoglobin A1c Lactate Calcium Total Bilirubin AST ALT Alkaline Phosphatase Total Protein Albumin Globulin Albumin/Globulin Ratio COVID-19 Eval Order SARS-CoV-2, RNA, NAAT Medications Administered Current Inpatient Medications Acetaminophen (Acetaminophen 325 Mg Tab) 650 mg PO Q4H PRN PRN Reason: pain/fever Stop: 04/15/20 16:37 Last Admin: 03/16/20 21:14 Dose: 650 mg Documented by: Albuterol (Albuterol Hfa 8 Gm Inhaler) 1 puffs INH QIDR PRN PRN Reason: Shortness of breath or wheezing Stop: 04/15/20 18:59 Aspirin (Aspirin 81 Mg Ectab) 81 mg PO QAM [facility] Stop: 04/16/20 08:59 Last Admin: 03/17/20 08:06 Dose: 81 mg Documented by: Calcitriol (Calcitriol 0.25 Mcg Capsule) 0.25 mcg PO MoWeFr@0900 [facility] Stop: 04/17/20 08:59 Carvedilol (Carvedilol 12.5 Mg Tab) 12.5 mg PO BID [facility] Stop: 04/15/20 20:59 Last Admin: 03/17/20 08:06 Dose: 12.5 mg Documented by: Dextrose (Dextrose 50% 50 Ml Syringe) 25 - 50 ml IV UD PRN; Protocol PRN Reason: Hypoglycemia Protocol Stop: 04/15/20 18:08 Gabapentin (Gabapentin 400 Mg Cap) 400 mg PO [facility] Stop: 04/15/20 20:59 Last Admin: 03/16/20 20:18 Dose: 400 mg Documented by: Gabapentin (Gabapentin 300 Mg Cap) 300 mg PO [facility] Stop: 04/15/20 20:59 Last Admin: 03/16/20 20:18 Dose: 300 mg Documented by: Glucagon (Glucagon For Inj 1 Mg Vial) 1 mg SQ UD PRN; Protocol PRN Reason: Hypoglycemia Protocol Stop: 04/15/20 18:08 Glucose (Glucose 10 Tabs/Tube) 4 - 8 tabs PO UD PRN; Protocol PRN Reason: Hypoglycemia Protocol Stop: 04/15/20 18:08 Glucose (Glucose 40% Gel 15 Gm Tube) 15 - 30 gm PO UD PRN; Protocol PRN Reason: Hypoglycemia Protocol Stop: 04/15/20 18:08 Ceftriaxone Sodium 2,000 mg/ (Dextrose) 70 mls @ 100 mls/hr IV Q24H [facility]; Protocol Stop: 03/23/20 21:59 Last Infusion: 03/17/20 00:00 Dose: Infused Documented by: Daptomycin 200 mg/ Syringe 4 mls @ 2 mls/min IV Q48H [facility]; Protocol Stop: 03/23/20 13:59 Sodium Chloride (Nss) 1,000 mls @ 80 mls/hr IV .[id number] [facility] Stop: 04/16/20 09:14 Last Admin: 03/17/20 09:19 Dose: 80 mls/hr Documented by: Insulin Aspart (Insulin Aspart 100 Units/Ml 3 Ml Pen) 0 units SC ACHS [facility] Stop: 04/15/20 18:29 Last Admin: 03/17/20 09:03 Dose: 3 units Documented by: Insulin Glargine (Insulin Glargine Solostar 100 Units/Ml 3 Ml Pen) 0 - 8 units SC BID [facility] Stop: 04/16/20 08:59 Last Admin: 03/17/20 09:05 Dose: 8 units Documented by: Ipratropium [place] (Ipratropium Hfa Inhaler (Combivent Respimat P&T Subs)) 1 puffs INH QIDR PRN PRN Reason: Shortness Of Breath Or Wheezing Stop: 04/15/20 22:58 Miscellaneous (Carbohydrates For Hypoglycemia ) 15 - 30 gm PO UD PRN PRN Reason: Hypoglycemia Protocol Stop: 04/15/20 18:08 Miscellaneous Information (Daptomycin Consult Active) 1 ea N/A UD PRN PRN Reason: Consult Stop: 04/15/20 12:02 Multivitamins/Minerals (Calcium 600mg + Vit D 400 Iu Tab) 1 tab PO BID [facility] Stop: 04/15/20 20:59 Last Admin: 03/17/20 08:06 Dose: 1 tab Documented by: Pantoprazole Sodium (Pantoprazole 40 Mg Tab) 40 mg PO DAILY [facility] Stop: 04/16/20 08:59 Last Admin: 03/17/20 08:06 Dose: 40 mg Documented by: Sertraline HCl (Sertraline Hcl 50 Mg Tablet) 50 mg PO DAILY [facility] Stop: 04/16/20 08:59 Last Admin: 03/17/20 08:06 Dose: 50 mg Documented by: Tramadol HCl (Tramadol Hcl 50 Mg Tablet) 50 - 100 mg PO Q4H PRN; Protocol PRN Reason: Pain Stop: 04/15/20 16:45 Last Admin: 03/17/20 08:05 Dose: 50 mg Documented by: PG Care Time/CCT Total # of Minutes Spent Total Time Spent with Patient: Total time spent is greater than 50% in coordination of care (as documented) at patient's floor/unit and/or counseling patient: Coding Level of Care Code 32034 Subseq Hosp Care Lvl 3 Diagnoses Cellulitis of right hand L03.113 Abscess of right hand L02.511 Tenosynovitis of right hand M65.9 Type 2 DM with CKD stage 3 and hypertension E11.22; I12.9; N18.3 Paroxysmal atrial fibrillation I48.0 CAD (coronary artery disease) I25.10 Chronic combined systolic and diastolic CHF (congestive heart failure) I50.42 Neuropathy of both upper extremities G56.93
[2020-03-17] MEDS ORDERED: GADOBUTROL 65ML VIAL IV ONE (14:10)
--- NOTE | 2020-03-17 14:19 | Electrocardiogram Report ---
Test Reason : Blood Pressure : / mmHG Vent. Rate : 063 BPM Atrial Rate : 063 BPM P-R Int : 166 ms QRS Dur : 122 ms QT Int : 458 ms P-R-T Axes : 068 -30 109 degrees QTc Int : 468 ms Normal sinus rhythm Left axis deviation Left bundle branch block Abnormal ECG When compared with ECG of 02-OCT-2018 07:07, No significant change Confirmed by Stephen Breaux ([id number]) on 03/17/2020 2:19:23 PM Referred By: REFERRED SELF Confirmed By:Stephen Breaux
--- NOTE | 2020-03-17 14:51 | Magnetic Resonance Report ---
MR wrist RT wo/w con HISTORY: Right wrist pain. Postop. abscess v hematoma. is contrast ok with CKD? TECHNIQUE: Multiplanar multisequence MRI of the right wrist was performed both before and after the i ntravenous administration of 5.5 cc of Gadavist contrast. COMPARISON STUDY: None. FINDINGS: There is a vertical skin incision and focal defect within the flexor retinaculum along the ventral aspect of the wrist consistent with prior carpal tunnel release. There is diffuse soft tissue edema and enhancement seen throughout the wrist. There is a synovial thickening and enhancement surr ounding the volar tendons of the wrist. Some of these volar tendons also demonstrate surrounding flui d consistent with a tenosynovitis. There is also mild thickening and enhancement within the median ne rve. There is a small peripheral enhancing heterogeneous fluid collection deep to the incision site b est seen on axial postcontrast image 5 of 20. This measures approximately 1.7 x 0.8 cm. There are are a few additional smaller fluid collections scattered along both the medial and lateral sides of the volar tendons. These are best seen on images 15 and 19 of the post contrast axial sequences. These me asure between 6 and 13 mm in size. There appear to be a few tiny peripheral enhancing fluid collectio ns also along the dorsal aspect of the volar tendons. There is a dominant fluid collection both surro unding and adjacent to the distal volar tendons along the ulnar side best seen on coronal image 12 an d axial image 1. This measures approximately 2.4 x 1.1 x 0.5 cm. Moderate joint effusion at the first carpometacarpal joint with enhancement of the synovial lining. No definite erosive change. There is a 1.3 cm T2 hyperintense lesion within the base of the first metacarpal. This demonstrates benign fea tures. No soft tissue mass or erosive changes. No fracture or dislocation. IMPRESSION: 1. Status post carpal tunnel release with a small heterogeneous peripheral enhancing fluid collection deep to the incision site which measures 1.7 x 0.8 cm. This favors a hematoma. However, a superimpos ed infection cannot be excluded. 2. There is also diffuse enhancement surrounding the volar tendons with multiple scattered fluid jason ections within and adjacent to the tendon sheaths as described above. Given the recent postoperative change, these fluid collections are indeterminate and could be due to postoperative seroma or hematom a. However, multiloculated abscesses would also have a similar appearance and would be the diagnosis of exclusion. 3. Diffuse subcutaneous edema with subcutaneous enhancement within the wrist. This favors a celluliti s. 4. Moderate joint effusion at the first carpometacarpal joint without definite bony erosive changes. This favors advanced osteoarthritis. A septic arthritis cannot be excluded. ACT 112: Negative or not required by law. Electronically signed by: Delta Barirentos M.D. 03/17/2020 2:50 PM
--- NOTE | 2020-03-17 16:15 | Orthopedic Progress Note ---
Date of Service March 17, 2020 Assessment & Plan (1) Abscess of hand, right: MRI results noted below. We will still plan for open irrigation debridement by Dr. Montiel tomorrow. Patient will be n.p.o. after midnight. Continue elevation regularly. Admission and Anticipated Discharge Date Admission Date: March 17, 2020 Subjective Patient lying in bed asleep. Easily awoken. States she is having continued pain in the right hand that is controlled to an extent with pain medication. She feels that it is no better than yesterday. No other complaints at this time. Physical Exam Physical Exam: Dressing removed. The initial blistering area has dried up. There is no active drainage right now. She continues to have moderate erythema around the thenar and hyperthenar eminences as well as the palm. She does have decreased range of motion of her fingers and passive flexion and extension does cause her discomfort. She has less erythema on the forearm today but is rotoformer backtender on palpation. Denies decreased sensation at this time. Cap refills less than 2 seconds. Results & Data ([facility]) Vital Signs (Past 12 Hours) Vital Signs Temp Pulse Resp BP Pulse Ox 03/17/20 15:35 36.9 C 79 18 148/61 H 92 03/17/20 07:27 36.8 C 72 18 149/64 H 93 Diagnostic Findings Patient: TIM GATES Date: 03/17/20MR#: [id number]: [id number] IMMEL RDAcct ID:[id number]: [facility] Zip: [place], [place] [address]Vyj: 84Location: 3NSex: FRoom/Bed: [id number] Phy: Leo Kwon D.O.Diagnosis: HAND CELLULITISPri Phy: Crystal Mcguire CRNPService Date: 03/17/20Fam Phy:Interpreting Phy: Delta [facility]os [facility] Phy: Rui Ruiz MD Ordering Phy: Adalberto Montiel MD cc: ~ MR wrist RT wo/w con HISTORY: Right wrist pain. Postop. abscess v hematoma. is contrast ok with CKD? TECHNIQUE: Multiplanar multisequence MRI of the right wrist was performed both before and after the intravenous administration of 5.5 cc of Gadavist contrast. COMPARISON STUDY: None. FINDINGS: There is a vertical skin incision and focal defect within the flexor retinaculum along the ventral aspect of the wrist consistent with prior carpal tunnel release. There is diffuse soft tissue edema and enhancement seen throughout the wrist. There is a synovial thickening and enhancement surrounding the volar tendons of the wrist. Some of these volar tendons also demonstrate surrounding fluid consistent with a tenosynovitis. There is also mild thickening and enhancement within the median nerve. There is a small peripheral enhancing heterogeneous fluid collection deep to the incision site best seen on axial postcontrast image 5 of 20. This measures approximately 1.7 x 0.8 cm. There are are a few additional smaller fluid collections scattered along both the medial and lateral sides of the volar tendons. These are best seen on images 15 and 19 of the post contrast axial sequences. These measure between 6 and 13 mm in size. There appear to be a few tiny peripheral enhancing fluid collections also along the dorsal aspect of the volar tendons. There is a dominant fluid collection both surrounding and adjacent to the distal volar tendons along the ulnar side best seen on coronal image 12 and axial image 1. This measures approximately 2.4 x 1.1 x 0.5 cm. Moderate joint effusion at the first carpometacarpal joint with enhancement of the synovial lining. No definite erosive change. There is a 1.3 cm T2 hyperintense lesion within the base of the first metacarpal. This demonstrates benign features. No soft tissue mass or erosive changes. No fracture or dislocation. IMPRESSION: 1. Status post carpal tunnel release with a small heterogeneous peripheral enhancing fluid collection deep to the incision site which measures 1.7 x 0.8 cm. This favors a hematoma. However, a superimposed infection cannot be excluded. 2. There is also diffuse enhancement surrounding the volar tendons with multiple scattered fluid collections within and adjacent to the tendon sheaths as described above. Given the recent postoperative change, these fluid collections are indeterminate and could be due to postoperative seroma or hematoma. However, multiloculated abscesses would also have a similar appearance and would be the diagnosis of exclusion. 3. Diffuse subcutaneous edema with subcutaneous enhancement within the wrist. This favors a cellulitis. 4. Moderate joint effusion at the first carpometacarpal joint without definite bony erosive changes. This favors advanced osteoarthritis. A septic arthritis cannot be excluded.
--- NOTE | 2020-03-17 20:57 | Ultrasound Report ---
ULTRASOUND RIGHT WRIST NONVASCULAR CLINICAL HISTORY: Evaluate hematoma. Recent surgery. COMPARISON STUDY: MRI of the right wrist performed the same day 03/17/2020. FINDINGS: Real-time, grayscale, and color flow sonography of the soft tissues of the right wrist is p erformed at the indicated site of interest. Significant soft tissue edema is seen throughout the wris t. There is a small complex fluid collection seen within the palmar soft tissues of the wrist at the site of interest deep to the incision site. This measures 2.7 x 1.0 x 2.2 cm. No internal flow is rayray wn color imaging. Edema is also suggested around the volar tendons. The regional vessels appear paten t. IMPRESSION: 1. Diffuse soft tissue edema is seen throughout the wrist. 2. A small complex fluid collection along the palmar aspect of the wrist deep to the incision site is detailed above. This likely represents a small hematoma. The sterility of this collection cannot be assessed by imaging and clinical correlation will be required. Electronically signed by: Christos Ochoa M.D. 03/17/2020 8:56 PM
[2020-03-17] MEDS: GABAPENTIN 400 MG CAP PO SCH (21:18)
[2020-03-17] MEDS: GABAPENTIN 300 MG CAP PO SCH (21:18)
[2020-03-17] MEDS: cefTRIAXone SODIUM 2,000 MG in DEXTROSE 5% 50 ML IV SCH (21:21)
[2020-03-18] MEDS: SODIUM CHLORIDE 0.9% 1,000 ML IV SCH ×2 (00:10→11:35)
[2020-03-18] MEDS ORDERED: Nursing to Pharmacy Communication SCH ×2 (02:15→18:15)
[2020-03-18] MEDS: INSULIN ASPART 100 UNITS/ML 3 ML PEN SC SCH ×4 (06:08→21:04)
[2020-03-18 07:27] LABS: Hematocrit (blood only) 28.6 % (37-47); Hemoglobin 8.9 g/dL (12.0-16.0); Mean Corpuscular Hemoglobin 26.2 pg (25-34); Mean Corpuscular Hgb Conc 31.1 g/dL (32-36); Mean Corpuscular Volume 84.1 fL (80-100); Mean Platelet Volume 11.1 fL (7.4-10.4); Platelet Count 151 K/uL (130-400); RDW Coefficient of Variation 18.1 % (11.5-14.5); RDW Standard Deviation 55.8 fL (36.4-46.3); White Blood Count 6.94 K/uL (4.8-10.8)
[2020-03-18 08:01] LABS: BUN Creatinine Ratio 17.7 (10-20); Calcium 9.2 mg/dl (8.5-10.1); Creatinine Clr Calc Pharmacy 27.4 ml/min; Est GFR (African American) 49.9; Potassium 4.3 mmol/L (3.5-5.1)
[2020-03-18] MEDS: CALCIUM 600MG + VIT D 400 IU TAB PO SCH ×2 (09:04→21:00)
[2020-03-18] MEDS: INSULIN GLARGINE SOLOSTAR 100 UNITS/ML 3 ML PEN SC SCH ×2 (09:04→21:01)
[2020-03-18] MEDS: ASPIRIN 81 MG ECTAB PO SCH (09:04)
[2020-03-18] MEDS: PANTOprazole 40 MG TAB PO SCH (09:04)
[2020-03-18] MEDS: carvediloL 12.5 MG TAB PO SCH ×2 (09:04→20:59)
[2020-03-18] MEDS: SERTRALINE HCL 50 MG TABLET PO SCH (09:04)
[2020-03-18] MEDS: CALCITRIOL 0.25 MCG CAPSULE PO SCH (09:04)
[2020-03-18] MEDS: traMADol HCL 50 MG TABLET PO PRN (09:12)
[2020-03-18] MEDS ORDERED: FUROSEMIDE 40 MG in SYRINGE 0 ML IV ONE (09:30)
--- NOTE | 2020-03-18 11:18 | Hospitalist Progress Note ---
Date of Service March 18, 2020 Assessment & Plan (1) Cellulitis of right hand: Status post carpal tunnel surgery continue IV daptomycin and ceftriaxone, no fever, WBC normal at 6k MRI right wrist with fluid collection, possible deep infection, tenosynovitis plan for I&D today with Dr. Montiel Follow-up blood and wound cultures staph species growing from hand, blood cultures no growth so far Elevate right upper extremity (2) Abscess of right hand: Superficial abscess drained in ER. Wound culture taken with rare gram- positive cocci -- staph species growing daptomycin and ceftriaxone, taper antibiotics according to final culture results (3) Tenosynovitis of right hand: Management as above. plan for OR today for incision/drainage (4) Type 2 DM with CKD stage 3 and hypertension: HbA1c 6.9% Switch her usual dosing of Lantus 15 units every afternoon to 8 units twice daily with hold parameters. NovoLog sliding scale for correction and carb coverage. monitor for hypoglycemia, no episodes gave 4 units Lantus this morning due to NPO status (5) Paroxysmal atrial fibrillation: Hold anticoagulation due to likely need for I&D resume Eliquis once okay with orthopedics (6) CAD (coronary artery disease): Continue aspirin, carvedilol. Holding lovastatin due to daptomycin use. Holding Eliquis due to possible need for surgery. (7) Chronic combined systolic and diastolic CHF (congestive heart failure): at this time she is euvolemic gave her Lasix 40mg IV this morning as she was on 3L NC and felt short of breath, RN noted crackles in bases great response, urinated several times, she is now 95% on room air, lungs clear, breathing comfortably she is safe for the OR today will continue her home dose of Lasix tomorrow morning (8) Neuropathy of both upper extremities: Continue gabapentin 700 mg p.o. at bedtime Admission and Anticipated Discharge Date Admission Date: March 17, 2020 Subjective patient resting comfortably this morning, no distress at all, breathing well says her pain and swelling are improved in the right hand/wrist earlier on she has some crackles in her bases, requiring 3L and felt short of breath gave her Lasix 40mg IV x 1, she has urinated several times and lungs now clear IV fluids now stopped, this was anticipated as her normal lasix was held on admission in setting of infection she is NPO this morning labs reviewed, WBC 6, Hb 8.9, plts 151, K 4.3, Cr 1.15 Review of Systems Review of Systems: All systems reviewed & are unremarkable except as noted in Subjective Constitutional: no fever, no fatigue and no weakness Respiratory: no cough, no dyspnea and no dyspnea on exertion Cardiovascular: no chest pain and no edema Gastrointestinal: no abdominal pain, no nausea, no vomiting, no constipation and no diarrhea/loose stools Musculoskeletal: + joint pain (right hand and wrist) Physical Exam Constitutional: WD/WN, vitals as above no acute distress Neck: trachea midline, no thyromegaly Respiratory: normal respiratory effort, lungs clear to auscultation Cardiovascular: RRR, no murmur, no edema Gastrointestinal (Abdomen): normal bowel sounds, soft, nontender, no hepatosplenomegaly Musculoskeletal: Head/Neck/Chest: normocephalic, head atraumatic and neck supple Extremities: + joint enlargement (right wrist) and strength 5/5 throughout; no cyanosis, no clubbing and no petechiae Skin: + erythema (right wrist and hand) Neurologic: patellar DTR's 2+ bilat, sensation intact and PERRL, EOMI, accommodation nl, no face palsy, no dysarthria Psychiatric: A+Ox3, euthymic affect Lymphatic: no cervical or axillary lymphadenopathy Results & Data Results & Data ([facility]) Vital Signs (Past 12 Hours) Vital Signs Temp Pulse Resp BP Pulse Ox 03/18/20 10:47 160/67 H 95 03/18/20 09:20 76 16 95 03/18/20 09:00 36.9 C 76 18 191/89 H 95 03/18/20 06:04 36.2 C L 74 16 163/90 H 99 03/17/20 23:19 36.9 C 74 18 138/66 98 Laboratory Results Laboratory Results - last 24 hr 03/17/20 03/17/20 03/17/20 12:02 17:17 21:03 WBC RBC Hgb Hct MCV MCH MCHC RDW Std Deviation RDW Coeff of Carlos Plt Count MPV Sodium Potassium Chloride Carbon Dioxide Anion Gap BUN Creatinine Est Cr Clr Drug Dosing Est GFR ( Amer) Est GFR (Non-Af Amer) BUN/Creatinine Ratio Glucose POC Glucose 156 H 104 H 165 H Calcium 03/18/20 03/18/20 03/18/20 05:56 07:13 07:13 WBC 6.94 RBC 3.40 L Hgb 8.9 L Hct 28.6 L MCV 84.1 MCH 26.2 MCHC 31.1 L RDW Std Deviation 55.8 H RDW Coeff of Carlos 18.1 H Plt Count 151 MPV 11.1 H Sodium 140 Potassium 4.3 D Chloride 109 H Carbon Dioxide 24 Anion Gap 7.0 BUN 20 H Creatinine 1.15 D Est Cr Clr Drug Dosing 27.4 Est GFR ( Amer) 49.9 Est GFR (Non-Af Amer) 43.0 BUN/Creatinine Ratio 17.7 Glucose 129 H POC Glucose 116 H Calcium 9.2 Medications Administered Current Inpatient Medications Acetaminophen (Acetaminophen 325 Mg Tab) 650 mg PO Q4H PRN PRN Reason: pain/fever Stop: 04/15/20 16:37 Last Admin: 03/16/20 21:14 Dose: 650 mg Documented by: Albuterol (Albuterol Hfa 8 Gm Inhaler) 1 puffs INH QIDR PRN PRN Reason: Shortness of breath or wheezing Stop: 04/15/20 18:59 Last Admin: 03/18/20 09:20 Dose: 1 puffs Documented by: Aspirin (Aspirin 81 Mg Ectab) 81 mg PO QAM [facility] Stop: 04/16/20 08:59 Last Admin: 03/18/20 09:04 Dose: 81 mg Documented by: Calcitriol (Calcitriol 0.25 Mcg Capsule) 0.25 mcg PO MoWeFr@0900 [facility] Stop: 04/17/20 08:59 Last Admin: 03/18/20 09:04 Dose: 0.25 mcg Documented by: Carvedilol (Carvedilol 12.5 Mg Tab) 12.5 mg PO BID [facility] Stop: 04/15/20 20:59 Last Admin: 03/18/20 09:04 Dose: 12.5 mg Documented by: Dextrose (Dextrose 50% 50 Ml Syringe) 25 - 50 ml IV UD PRN; Protocol PRN Reason: Hypoglycemia Protocol Stop: 04/15/20 18:08 Gabapentin (Gabapentin 400 Mg Cap) 400 mg PO HS [facility] Stop: 04/15/20 20:59 Last Admin: 03/17/20 21:18 Dose: 400 mg Documented by: Gabapentin (Gabapentin 300 Mg Cap) 300 mg PO HS TAMMIE Stop: 04/15/20 20:59 Last Admin: 03/17/20 21:18 Dose: 300 mg Documented by: Glucagon (Glucagon For Inj 1 Mg Vial) 1 mg SQ UD PRN; Protocol PRN Reason: Hypoglycemia Protocol Stop: 04/15/20 18:08 Glucose (Glucose 10 Tabs/Tube) 4 - 8 tabs PO UD PRN; Protocol PRN Reason: Hypoglycemia Protocol Stop: 04/15/20 18:08 Glucose (Glucose 40% Gel 15 Gm Tube) 15 - 30 gm PO UD PRN; Protocol PRN Reason: Hypoglycemia Protocol Stop: 04/15/20 18:08 Ceftriaxone Sodium 2,000 mg/ (Dextrose) 70 mls @ 100 mls/hr IV Q24H TAMMIE; Protocol Stop: 03/23/20 21:59 Last Infusion: 03/17/20 22:20 Dose: Infused Documented by: Daptomycin 200 mg/ Syringe 4 mls @ 2 mls/min IV Q48H TAMMIE; Protocol Stop: 03/23/20 13:59 Insulin Aspart (Insulin Aspart 100 Units/Ml 3 Ml Pen) 0 units SC Q6 TAMMIE Stop: 04/17/20 05:59 Last Admin: 03/18/20 06:08 Dose: Not Given Documented by: Insulin Glargine (Insulin Glargine Solostar 100 Units/Ml 3 Ml Pen) 0 - 8 units SC BID TAMMIE Stop: 04/16/20 08:59 Last Admin: 03/18/20 09:04 Dose: 4 units Documented by: Ipratropium [place] (Ipratropium Hfa Inhaler (Combivent Respimat P&T Subs)) 1 puffs INH QIDR PRN PRN Reason: Shortness Of Breath Or Wheezing Stop: 04/15/20 22:58 Last Admin: 03/18/20 09:19 Dose: 1 puffs Documented by: Miscellaneous (Carbohydrates For Hypoglycemia ) 15 - 30 gm PO UD PRN PRN Reason: Hypoglycemia Protocol Stop: 04/15/20 18:08 Miscellaneous Information (Daptomycin Consult Active) 1 ea N/A UD PRN PRN Reason: Consult Stop: 04/15/20 12:02 Multivitamins/Minerals (Calcium 600mg + Vit D 400 Iu Tab) 1 tab PO BID TAMMIE Stop: 04/15/20 20:59 Last Admin: 03/18/20 09:04 Dose: 1 tab Documented by: Pantoprazole Sodium (Pantoprazole 40 Mg Tab) 40 mg PO DAILY TAMMIE Stop: 04/16/20 08:59 Last Admin: 03/18/20 09:04 Dose: 40 mg Documented by: Sertraline HCl (Sertraline Hcl 50 Mg Tablet) 50 mg PO DAILY TAMMIE Stop: 04/16/20 08:59 Last Admin: 03/18/20 09:04 Dose: 50 mg Documented by: Tramadol HCl (Tramadol Hcl 50 Mg Tablet) 50 - 100 mg PO Q4H PRN; Protocol PRN Reason: Pain Stop: 04/15/20 16:45 Last Admin: 03/18/20 09:12 Dose: 100 mg Documented by: PG Care Time/CCT Total # of Minutes Spent Total Time Spent with Patient: Total time spent is greater than 50% in coordination of care (as documented) at patient's floor/unit and/or counseling patient: Coding Level of Care Code 11832 Subseq Hosp Care Lvl 3 Diagnoses Cellulitis of right hand L03.113 Abscess of right hand L02.511 Tenosynovitis of right hand M65.9 Type 2 DM with CKD stage 3 and hypertension E11.22; I12.9; N18.3 Paroxysmal atrial fibrillation I48.0 CAD (coronary artery disease) I25.10 Chronic combined systolic and diastolic CHF (congestive heart failure) I50.42 Neuropathy of both upper extremities G56.93
[2020-03-18] MEDS ORDERED: DAPTOmycin 200 MG in SYRINGE 0 ML IV SCH (14:00)
[2020-03-18] MEDS ORDERED: fentaNYL citrate 100 MCG/2 ML VIAL ONE (14:40)
[2020-03-18] MEDS ORDERED: BACITRACIN INJ 50,000 UNIT VIAL ONE (14:40)
[2020-03-18] MEDS ORDERED: BUPIVACAINE 0.5 % 5 MG/1 ML MPF 30ML VIAL ONE (14:40)
--- NOTE | 2020-03-18 14:46 | Anesthesiology Consultation ---
Date of Service March 18, 2020 Assessment & Plan (1) Encounter for pre-operative examination: Chart Review Chart Review: Acceptable Risk for Surgery History Surgery Operation Date: 03/18/20 07:00 Proposed Procedures p Open Right Hand Incision and Drainage - Zack Montiel MD Height/Weight Height: 5 ft Weight: 55.2 kg Allergies Allergy/AdvReac Type Severity Reaction Status Date / Time tamsulosin Allergy Severe SHORTNESS Verified 03/06/20 13:27 OF BREATH butalbital Allergy Intermediate SHORTNESS Verified 03/06/20 13:27 OF BREATH nitrofurantoin Allergy Unknown Verified 03/06/20 13:27 [From Macrobid] Cephalosporins AdvReac Severe TONGUE Verified 03/16/20 12:09 SWELLING WITH KEFLEX- tolerating keflex 03/16/20 levetiracetam AdvReac Intermediate RASH Verified 03/06/20 13:27 morphine AdvReac Unknown hallucinati Verified 03/06/20 13:27 ons Sulfa (Sulfonamide AdvReac Unknown "SULFA Verified 03/06/20 13:27 Antibiotics) DRUGS" - UNKNOWN Medications Home Medications Medication Instructions Recorded Confirmed Last Taken Combivent Respimat 1 puff INHALATION QID PRN #0 05/08/14 03/16/20 Unknown calcium carbonate-vitamin D3 2 tab PO BID #0 03/20/17 03/16/20 11/23/18 [Os-Emile 500 + D3] aspirin 81 mg PO QAM 10/01/18 03/16/20 11/23/18 insulin glargine 100 unit/mL (3 15 units SQ DAILY #16 ml 04/02/19 03/16/20 Unknown mL) subcutaneous pen Eliquis 2.5 mg PO BID 06/15/19 03/16/20 Unknown valsartan 40 mg tablet 40 mg PO BID #180 tab 10/16/19 03/16/20 Unknown calcitriol 0.25 mcg capsule 0.25 mcg PO .COMPLEX #30 cap 11/04/19 03/16/20 Unknown carvedilol 12.5 mg tablet 12.5 mg PO BID #60 tab 12/26/19 03/16/20 Unknown furosemide 20 mg tablet 20 mg PO QAM #30 tab 12/26/19 03/16/20 Unknown gabapentin 400 mg capsule 400 mg PO HS #30 cap 12/26/19 03/16/20 Unknown ipratropium 0.5 mg-albuterol 3 mg 3 ml INHALATION Q4H PRN #180 ml 12/26/19 03/16/20 Unknown (2.5 mg base)/3 mL nebulization soln sertraline 50 mg tablet 50 mg PO DAILY #30 tab 01/03/20 03/16/20 Unknown gabapentin 300 mg capsule 300 mg PO HS #90 cap 01/23/20 03/16/20 Unknown lovastatin 40 mg tablet 40 mg PO HS #90 tab 01/23/20 03/16/20 Unknown pantoprazole 40 mg tablet,delayed 40 mg PO DAILY #90 tab 01/23/20 03/16/20 Unknown release neomycin 3.5 mg/g-polymyxin B 1 applic OPHTHALMIC (EYE) TID #3.5 03/06/20 03/16/20 Unknown 10,000 unit/g-dexameth 0.1 % eye g oint Active Medications Generic Name Dose Route Start Last Admin Trade Name Freq PRN Reason Stop Dose Admin Acetaminophen 650 mg 03/16/20 16:38 03/16/20 21:14 Acetaminophen 325 Mg Tab PO 04/15/20 16:37 650 mg Q4H PRN Administration pain/fever Albuterol 1 puffs 03/16/20 22:57 03/18/20 09:20 Albuterol Hfa 8 Gm Inhaler INH 04/15/20 18:59 1 puffs QIDR PRN Administration Shortness of breath or wheezing Aspirin 81 mg 03/17/20 09:00 03/18/20 09:04 Aspirin 81 Mg Ectab PO 04/16/20 08:59 81 mg QAM TAMMIE Administration Calcitriol 0.25 mcg 03/18/20 09:00 03/18/20 09:04 Calcitriol 0.25 Mcg Capsule PO 04/17/20 08:59 0.25 mcg MoWeFr@0900 TAMMIE Administration Carvedilol 12.5 mg 03/16/20 21:00 03/18/20 09:04 Carvedilol 12.5 Mg Tab PO 04/15/20 20:59 12.5 mg BID TAMMIE Administration Gabapentin 400 mg 03/16/20 21:00 03/17/20 21:18 Gabapentin 400 Mg Cap PO 04/15/20 20:59 400 mg HS TAMMIE Administration Gabapentin 300 mg 03/16/20 21:00 03/17/20 21:18 Gabapentin 300 Mg Cap PO 04/15/20 20:59 300 mg HS TAMMIE Administration Ceftriaxone Sodium 2,000 mg/ 70 mls @ 100 mls/hr 03/16/20 22:00 03/17/20 22:20 Dextrose IV 03/23/20 21:59 Infused Q24H TAMMIE Infusion Protocol Daptomycin 200 mg/ Syringe 4 mls @ 2 mls/min 03/18/20 14:00 03/18/20 13:29 IV 03/23/20 13:59 2 mls/min Q48H TAMMIE Administration Protocol Insulin Aspart 0 units 03/18/20 06:00 03/18/20 13:22 Insulin Aspart 100 Units/Ml 3 Ml Pen SC 04/17/20 05:59 Not Given Q6 TAMMIE Insulin Glargine 0 - 8 units 03/17/20 09:00 03/18/20 09:04 Insulin Glargine Solostar 100 Units/Ml 3 Ml Pen SC 04/16/20 08:59 4 units BID TAMMIE Administration Ipratropium [place] 1 puffs 03/16/20 22:59 03/18/20 09:19 Ipratropium Hfa Inhaler (Combivent Respimat P&T Subs) INH 04/15/20 22:58 1 puffs QIDR PRN Administration Shortness Of Breath Or Wheezing Multivitamins/Minerals 1 tab 03/16/20 21:00 03/18/20 09:04 Calcium 600mg + Vit D 400 Iu Tab PO 04/15/20 20:59 1 tab BID TAMMIE Administration Pantoprazole Sodium 40 mg 03/17/20 09:00 03/18/20 09:04 Pantoprazole 40 Mg Tab PO 04/16/20 08:59 40 mg DAILY TAMMIE Administration Sertraline HCl 50 mg 03/17/20 09:00 03/18/20 09:04 Sertraline Hcl 50 Mg Tablet PO 04/16/20 08:59 50 mg DAILY TAMMIE Administration Tramadol HCl 50 - 100 mg 03/16/20 16:46 03/18/20 09:12 Tramadol Hcl 50 Mg Tablet PO 04/15/20 16:45 100 mg Q4H PRN Administration Pain Protocol NPO Date Last Intake of Fluids: 03/17/20 Time Last Intake of Fluids: 23:59 Date Last Intake of Solids: 03/17/20 Time Last Intake of Solids: 23:59 Past Medical History Medical History (Updated 03/18/20 @ 14:50 by Agustin Baker MD) Acute UTI (urinary tract infection) Allergy to multiple antibiotics Anemia Atrial fibrillation Cardiac pacemaker for complete hear block Cerebellar infarct Chronic renal disease, stage III Depression Diabetes mellitus Extremity atherosclerosis with intermittent claudication Gait instability History of chest pain Hypertension Secondary hyperparathyroidism of renal origin Solitary pulmonary nodule Transient ischemic attack (TIA) Vitamin D deficiency Past Family History Family History Other Family history non-contributory Past Surgical History Surgical History (Updated 03/18/20 @ 14:44 by Agustin Baker MD) History of nasal surgery Hx of carpal tunnel repair Social History Smoking Status: Never smoker Hx Alcohol Use: No Hx Substance Use: No Physical Exam Vital Signs Last Vital Signs Temp 36.7 C 03/18/20 14:36 Pulse 66 03/18/20 14:36 Resp 16 03/18/20 14:36 BP 157/71 H 03/18/20 14:36 Pulse Ox 95 03/18/20 14:36 Testing Laboratory Results 03/18/20 07:13 03/18/20 07:13 Hemoglobin A1c 6.9 % (4.5-5.6) H 03/17/20 06:54 03/16/20 12:45 Aerobic Blood Culture - Preliminary Blood No growth in Aerobic bottle after 48 hours. Anaerobic Blood Culture - Preliminary No growth in Anaerobic bottle after 48 hours. 03/16/20 12:35 Aerobic Blood Culture - Preliminary Blood No growth in Aerobic bottle after 48 hours. Anaerobic Blood Culture - Preliminary No growth in Anaerobic bottle after 48 hours. 03/16/20 12:00 Gram Stain - Final Hand Deep Wound Culture - Preliminary Staphylococcus species 03/18/20 03/18/20 03/18/20 14:34 12:05 05:56 POC Glucose 96 130 H 116 H Electrocardiogram Date: 03/16/20 Findings: + NSR @ (63), + LBBB and + no change from (September 2018)
--- NOTE | 2020-03-18 15:25 | History & Physical Bridge Note ---
Date of Service March 18, 2020 History & Physical Bridge Note I have examined the patient, reviewed the History & Physical and in the interval since the performance of the History & Physical I have noted the following changes of clinical significance: no changes noted I saw the Patient the preoperative holding area discussed risk benefits reasonable outcomes and expectations. We will plan for: Right hand irrigation debridement, evacuation hematoma. I reviewed MRI and ultrasound prior. Examination shows hand with decrease in swelling and improvements in motion
[2020-03-18] MEDS ORDERED: ePHEDrine sulfate 50 MG/ML AMP IV PRN (15:45)
[2020-03-18] MEDS ORDERED: fentaNYL citrate 100 MCG/2 ML VIAL IV PRN (15:45)
[2020-03-18] MEDS ORDERED: ATROPINE SULFATE 0.1 MG/ML 10ML SYR IV PRN (15:45)
[2020-03-18] MEDS ORDERED: PROPOFOL IV EMULSION 10 MG/ML 20 ML VIAL IV ONE (15:48)
[2020-03-18] MEDS ORDERED: LIDOCAINE HCL 2% 2 ML VIAL/AMP(20MG/ML) INFIL ONE (15:48)
[2020-03-18] MEDS ORDERED: ONDANSETRON INJ 2 MG/ML 2 ML VIAL ONE (15:48)
[2020-03-18] MEDS: cefTRIAXone SODIUM 2,000 MG in DEXTROSE 5% 50 ML IV SCH (16:02)
[2020-03-18] MEDS ORDERED: FLOSEAL HEMOSTATIC MATRIX 5ML TOP ONE (16:21)
--- NOTE | 2020-03-18 16:21 | Post Operative Brief Note ---
Immediate Post Op Note v1 Date of Surgery March 18, 2020 Pre & Post Diagnosis Operation Date: 03/18/20 07:00 Pre-Op Diagnosis: HAND Hematoma Post-Op Diagnosis: HAND hematoma I identified the patient and participated in the time-out.: Yes Procedure Operation Date: 03/18/20 07:00 Actual Procedures p Open Right Hand Irrigation and debridement, evacuation of hematoma(Right) - Zack Montiel MD Surgeon Zack Montiel MD Boiler Tester jadiel carey, PAC Estimated Blood Loss 5 Findings Consistent with Post-Op Diagnosis
--- NOTE | 2020-03-18 17:14 | Anesthesiology Progress Note ---
Date of Service March 18, 2020 Anesthesia Post Procedure Vital Signs Vital Signs: Temp Pulse Pulse Resp BP Pulse Ox 03/18/20 17:00 62 16 168/82 H 98 03/18/20 16:50 69 16 176/72 H 98 03/18/20 16:40 63 12 170/83 H 100 03/18/20 16:33 36.4 C L 62 18 184/72 H 100 03/18/20 14:47 37 C 66 18 174/73 H 94 03/18/20 14:36 36.7 C 66 16 157/71 H 95 03/18/20 10:47 160/67 H 95 03/18/20 09:20 76 16 95 03/18/20 09:00 36.9 C 76 18 191/89 H 95 03/18/20 06:04 36.2 C L 74 16 163/90 H 99 03/17/20 23:19 36.9 C 74 18 138/66 98 03/17/20 21:09 77 190/80 H Pain Intensity Right Hand: Pain Intensity: 6 Transfer of Care Handoff Completed per policy Notes Mental Status: alert / awake / arousable and participated in evaluation Patient Amnestic to Procedure: Yes Nausea / Vomiting: adequately controlled Pain: adequately controlled Airway Patency, RR, SpO2: stable & adequate BP & HR: stable & adequate Hydration State: stable & adequate Anesthetic Complications: no major complications apparent and Pt Satisfied with anesthetic care
[2020-03-18] MEDS: ACETAMINOPHEN 325 MG TAB PO PRN (21:00)
[2020-03-18] MEDS: GABAPENTIN 400 MG CAP PO SCH (22:11)
[2020-03-18] MEDS: GABAPENTIN 300 MG CAP PO SCH (22:11)
[2020-03-19 07:20] LABS: Creatinine Clr Calc Pharmacy 26.9 ml/min; Est GFR (African American) 48.9; Est GFR (Non-African American) 42.2
--- NOTE | 2020-03-19 08:21 | Operative Report (OR) ---
DATE OF OPERATION: 03/18/2020 PREOPERATIVE DIAGNOSIS: Right hand hematoma. POSTOPERATIVE DIAGNOSIS: Right hand hematoma. PROCEDURES: 1. Right hand evacuation of hematoma. 2. Right hand irrigation and debridement. SURGEON: Adalberto Montiel MD CHILD AND FAMILY SERVICES WORKER: Danielle Prince PA-C, who was necessary for prepping, draping, retraction, setup, exposure, and closure. ANESTHESIA: General. FINDINGS: Hematoma identified in the carpal tunnel. No gross evidence of purulence or infection. Cultures taken. INDICATIONS: An 84-year-old female with progressive pain and swelling in the hand. She presents with concern for hematoma. I saw her in the preoperative holding area. We discussed risks, benefits, reasonable outcomes, and expectations and overall does show improvement after holding her Eliquis for 48 hours. The risks and benefits have been discussed including, but not limited to, risk of infection, nerve injury, stiffness, loss of motion, failure to improve, etc. Reasonable outcomes and options of treatment were discussed. An explanation of appropriate alternatives to the procedure that may be advantageous were discussed and their risks and benefits, as well as the risks and benefits of not proceeding with treatment. I offered to answer any additional inquiries concerning the treatment involved. All the patient's questions were answered. The patient is agreeable, understanding of the treatment plan and alternatives, and wishes to proceed with the treatment plan. DESCRIPTION OF OPERATION: I made a longitudinal incision over the carpal tunnel approximately 2.5 cm in length. Dissection was carried down through the skin and subcutaneous tissue in line with the patient's previous incision. I entered the carpal tunnel. Moderate amount of hematoma was encountered. I did not detect gross purulence or active infection. I sent cultures both superficial and deep. There was a moderate amount of inflammatory fluid in the carpal tunnel as well. This was drained. I performed debridement of skin, subcutaneous tissue, and fascia. I then irrigated the carpal tunnel with 3 liters of normal saline after cultures were taken. I inspected the median nerve and this did appear to be intact and free from injury. The tourniquet was let down. I did not identify any active evidence of arterial bleeding. There was a mild amount of oozing, but no evidence of deep active bleeding. Mostly the oozing came from the new surgical incision. I cauterized this and hemostasis was excellent. Additionally, I placed FloSeal in the region to help further facilitate hemostasis. Skin was closed with 4-0 nylon in a mattress fashion. I injected Marcaine in the local area at the conclusion of the procedure for pain relief. The patient was placed in soft dressing and sent to PACU in stable condition. Postoperative plan will be strict elevation. Will begin active digital range of motion. Will continue antibiotics pending cultures. I attest to the content of the Intraoperative Record and any orders documented therein. Any exception s are noted below.
[2020-03-19] MEDS: carvediloL 12.5 MG TAB PO SCH ×2 (08:57→21:23)
[2020-03-19] MEDS: CALCIUM 600MG + VIT D 400 IU TAB PO SCH ×2 (08:57→21:25)
[2020-03-19] MEDS: PANTOprazole 40 MG TAB PO SCH (08:57)
[2020-03-19] MEDS: ASPIRIN 81 MG ECTAB PO SCH (08:57)
[2020-03-19] MEDS: SERTRALINE HCL 50 MG TABLET PO SCH (08:57)
[2020-03-19] MEDS ORDERED: cefTRIAXone SODIUM 2,000 MG in DEXTROSE 5% 50 ML IV SCH (09:00)
[2020-03-19] MEDS ORDERED: FUROSEMIDE 40 MG TAB PO SCH (09:00)
[2020-03-19] MEDS: INSULIN GLARGINE SOLOSTAR 100 UNITS/ML 3 ML PEN SC SCH ×2 (09:06→21:28)
[2020-03-19] MEDS: INSULIN ASPART 100 UNITS/ML 3 ML PEN SC SCH ×4 (09:07→21:26)
--- NOTE | 2020-03-19 09:59 | Orthopedic Progress Note ---
Date of Service March 19, 2020 Assessment & Plan (1) Cellulitis of right hand: POD 1 s/p I/D Right hand. Continue IV antibx Earlier Cx from ER showing MSSA; Staph sp. noted on new cx's from surgery. Continue OT for hand ROM Plan for dressing change tomorrow. Admission and Anticipated Discharge Date Admission Date: March 17, 2020 Subjective POD 1 Pt sitting up in chair at bedside. OT currently working with her on finger ROM. Pt states hand is feeling a little bit better today. Still having some increased pain with ROM of the fingers. No other complaints. Physical Exam Physical Exam: Dressings C/D/I. Fingers appear more mobile today but still with a bit of increased pain with extension. Cap refill < 2 seconds. Fingers pink and warm . Sensation intact. Results & Data ([facility]) Vital Signs (Past 12 Hours) Vital Signs Temp Pulse Resp BP Pulse Ox 03/19/20 07:32 36.4 C L 66 18 171/68 H 97 03/19/20 03:14 36.3 C L 64 16 144/69 H 97 03/18/20 23:06 36.6 C 67 16 124/63 91
[2020-03-19] MEDS: ACETAMINOPHEN 325 MG TAB PO PRN ×2 (10:24→21:21)
--- NOTE | 2020-03-19 15:06 | Hospitalist Progress Note ---
Date of Service March 19, 2020 Assessment & Plan (1) Cellulitis of right hand: Status post carpal tunnel surgery continue IV daptomycin and ceftriaxone, no fever, WBC normal at 6k MRI right wrist with fluid collection, possible deep infection, tenosynovitis I&D on 03/[address] Montiel wound cultures growing MSSA change to Ancef today no fever, less pain/swelling Elevate right upper extremity d/w ortho how long they would want IV antibiotics, then change to PO (2) Abscess of right hand: Superficial abscess drained in ER. Wound culture taken- MSSA daptomycin and ceftriaxone initially, now on Ancef (3) Tenosynovitis of right hand: Management as above. I&D on 03/[address] Montiel (4) Type 2 DM with CKD stage 3 and hypertension: HbA1c 6.9% Switch her usual dosing of Lantus 15 units every afternoon to 8 units twice daily with hold parameters. NovoLog sliding scale for correction and carb coverage. monitor for hypoglycemia, no episodes today (5) Paroxysmal atrial fibrillation: Hold anticoagulation due to likely need for I&D resume Eliquis tomorrow if okay with ortho (6) CAD (coronary artery disease): Continue aspirin, carvedilol. Lovastatin Holding Eliquis for now (7) Chronic combined systolic and diastolic CHF (congestive heart failure): at this time she is euvolemic Lasix 40mg PO this morning due to being on 1L NC great response continue Lasix 20mg PO daily tomorrow (8) Neuropathy of both upper extremities: Continue gabapentin 700 mg p.o. at bedtime Admission and Anticipated Discharge Date Admission Date: March 17, 2020 Subjective patient doing well, keeping right hand/arm elevated minimal pain eating well, breathing well on room air she responded well to Lasix 40mg PO this morning no fever/chills, no nausea, no diarrhea d/w pharmacy, will downgrade antibiotics to Ancef due to MSSA on culture WBC normal, Cr normal, electrolytes stable Review of Systems Review of Systems: All systems reviewed & are unremarkable except as noted in Subjective Musculoskeletal: + joint pain (right hand/wrist, better) Physical Exam Constitutional: WD/WN, vitals as above no acute distress Neck: trachea midline, no thyromegaly Respiratory: normal respiratory effort, lungs clear to auscultation Cardiovascular: RRR, no murmur, no edema Gastrointestinal (Abdomen): normal bowel sounds, soft, nontender, no hepatosplenomegaly Musculoskeletal: Head/Neck/Chest: normocephalic, head atraumatic and neck supple Extremities: + joint enlargement (right wrist) and strength 5/5 throughout; no cyanosis, no clubbing and no petechiae Skin: + erythema (right wrist and hand) Neurologic: patellar DTR's 2+ bilat, sensation intact and PERRL, EOMI, accommodation nl, no face palsy, no dysarthria Psychiatric: A+Ox3, euthymic affect Lymphatic: no cervical or axillary lymphadenopathy Results & Data Results & Data ([facility]) Vital Signs (Past 12 Hours) Vital Signs Temp Pulse Resp BP Pulse Ox 03/19/20 11:45 36.9 C 60 18 130/64 91 03/19/20 07:32 36.4 C L 66 18 171/68 H 97 03/19/20 03:14 36.3 C L 64 16 144/69 H 97 Laboratory Results Laboratory Results - last 24 hr 03/18/20 03/18/20 03/19/20 16:38 20:51 06:23 Creatinine 1.17 Est Cr Clr Drug Dosing 26.9 Est GFR ( Amer) 48.9 Est GFR (Non-Af Amer) 42.2 POC Glucose 95 119 H 03/19/20 03/19/20 07:50 11:42 Creatinine Est Cr Clr Drug Dosing Est GFR ( Amer) Est GFR (Non-Af Amer) POC Glucose 91 126 H Medications Administered Current Inpatient Medications Acetaminophen (Acetaminophen 325 Mg Tab) 650 mg PO Q4H PRN PRN Reason: pain/fever Stop: 04/15/20 16:37 Last Admin: 03/19/20 10:24 Dose: 650 mg Documented by: Albuterol (Albuterol Hfa 8 Gm Inhaler) 1 puffs INH QIDR PRN PRN Reason: Shortness of breath or wheezing Stop: 04/15/20 18:59 Last Admin: 03/18/20 09:20 Dose: 1 puffs Documented by: Aspirin (Aspirin 81 Mg Ectab) [facility] Stop: 04/16/20 08:59 Last Admin: 03/19/20 08:57 Dose: 81 mg Documented by: Calcitriol (Calcitriol 0.25 Mcg Capsule) 0.25 mcg PO MoWeFr@0900 [facility] Stop: 04/17/20 08:59 Last Admin: 03/18/20 09:04 Dose: 0.25 mcg Documented by: Carvedilol (Carvedilol 12.5 Mg Tab) 12.5 mg PO BID [facility] Stop: 04/15/20 20:59 Last Admin: 03/19/20 08:57 Dose: 12.5 mg Documented by: Dextrose (Dextrose 50% 50 Ml Syringe) 25 - 50 ml IV UD PRN; Protocol PRN Reason: Hypoglycemia Protocol Stop: 04/15/20 18:08 Furosemide (Furosemide 40 Mg Tab) 40 mg PO QAM [facility] Stop: 04/18/20 08:59 Last Admin: 03/19/20 09:42 Dose: 40 mg Documented by: Gabapentin (Gabapentin 400 Mg Cap) 400 mg PO [facility] Stop: 04/15/20 20:59 Last Admin: 03/18/20 22:11 Dose: 400 mg Documented by: Gabapentin (Gabapentin 300 Mg Cap) 300 mg PO [facility] Stop: 04/15/20 20:59 Last Admin: 03/18/20 22:11 Dose: 300 mg Documented by: Glucagon (Glucagon For Inj 1 Mg Vial) 1 mg SQ UD PRN; Protocol PRN Reason: Hypoglycemia Protocol Stop: 04/15/20 18:08 Glucose (Glucose 10 Tabs/Tube) 4 - 8 tabs PO UD PRN; Protocol PRN Reason: Hypoglycemia Protocol Stop: 04/15/20 18:08 Glucose (Glucose 40% Gel 15 Gm Tube) 15 - 30 gm PO UD PRN; Protocol PRN Reason: Hypoglycemia Protocol Stop: 04/15/20 18:08 Cefazolin Sodium (Ancef 1000mg) 1,000 mg in 7.5 mls @ 2.5 mls/min IV Q12H [facility]; Protocol Stop: 03/27/20 07:59 Cefazolin Sodium (Ancef 2000mg) 2,000 mg in 15 mls @ 3.75 mls/min IV 2000 [facility] Stop: 03/19/20 20:03 Insulin Aspart (Insulin Aspart 100 Units/Ml 3 Ml Pen) 0 units SC ACHS [facility] Stop: 04/17/20 20:59 Last Admin: 03/19/20 13:24 Dose: 3 units Documented by: Insulin Glargine (Insulin Glargine Solostar 100 Units/Ml 3 Ml Pen) 0 - 8 units SC BID [facility] Stop: 04/16/20 08:59 Last Admin: 03/19/20 09:06 Dose: Not Given Documented by: Ipratropium [place] (Ipratropium Hfa Inhaler (Combivent Respimat P&T Subs)) 1 puffs INH QIDR PRN PRN Reason: Shortness Of Breath Or Wheezing Stop: 04/15/20 22:58 Last Admin: 03/18/20 09:19 Dose: 1 puffs Documented by: Miscellaneous (Carbohydrates For Hypoglycemia ) 15 - 30 gm PO UD PRN PRN Reason: Hypoglycemia Protocol Stop: 04/15/20 18:08 Multivitamins/Minerals (Calcium 600mg + Vit D 400 Iu Tab) 1 tab PO BID [facility] Stop: 04/15/20 20:59 Last Admin: 03/19/20 08:57 Dose: 1 tab Documented by: Pantoprazole Sodium (Pantoprazole 40 Mg Tab) 40 mg PO DAILY [facility] Stop: 04/16/20 08:59 Last Admin: 03/19/20 08:57 Dose: 40 mg Documented by: Sertraline HCl (Sertraline Hcl 50 Mg Tablet) 50 mg PO DAILY [facility] Stop: 04/16/20 08:59 Last Admin: 03/19/20 08:57 Dose: 50 mg Documented by: Tramadol HCl (Tramadol Hcl 50 Mg Tablet) 50 - 100 mg PO Q4H PRN; Protocol PRN Reason: Pain Stop: 04/15/20 16:45 Last Admin: 03/18/20 09:12 Dose: 100 mg Documented by: PG Care Time/CCT Total # of Minutes Spent Total Time Spent with Patient: Total time spent is greater than 50% in coordination of care (as documented) at patient's floor/unit and/or counseling patient: Coding Level of Care Code 92814 Subseq Hosp Care Lvl 3 Diagnoses Cellulitis of right hand L03.113 Abscess of right hand L02.511 Tenosynovitis of right hand M65.9 Type 2 DM with CKD stage 3 and hypertension E11.22; I12.9; N18.3 Paroxysmal atrial fibrillation I48.0 CAD (coronary artery disease) I25.10 Chronic combined systolic and diastolic CHF (congestive heart failure) I50.42 Neuropathy of both upper extremities G56.93
[2020-03-19] MEDS ORDERED: ceFAZolin 2000MG 2,000 MG/15 ML SYR IV SCH (20:00)
[2020-03-19] MEDS: GABAPENTIN 400 MG CAP PO SCH (21:24)
[2020-03-19] MEDS: GABAPENTIN 300 MG CAP PO SCH (21:24)
[2020-03-20 06:25] LABS: Basophils # (auto) 0.01 K/uL (0-0.2); Basophils % (auto) 0.2 %; Eosinophils % (auto) 4.3 %; Hematocrit (blood only) 28.8 % (37-47); Immature Granulocytes # (auto) 0.01 K/uL (0.00-0.02); Immature Granulocytes % (auto) 0.2 %; Lymphocytes # (auto) 1.72 K/uL (1.2-3.4); Lymphocytes % (auto) 36.7 %; Mean Corpuscular Hgb Conc 31.3 g/dL (32-36); Mean Corpuscular Volume 83.2 fL (80-100); Mean Platelet Volume 10.9 fL (7.4-10.4); Monocytes # (auto) 0.33 K/uL (0.11-0.59); Neutrophils # (auto) 2.42 K/uL (1.4-6.5); Neutrophils % (auto) 51.6 %; Platelet Count 196 K/uL (130-400); RDW Coefficient of Variation 17.7 % (11.5-14.5); RDW Standard Deviation 54.2 fL (36.4-46.3); Red Blood Count 3.46 M/uL (4.2-5.4); White Blood Count 4.69 K/uL (4.8-10.8)
[2020-03-20 06:59] LABS: BUN Creatinine Ratio 23.7 (10-20); Creatinine Clr Calc Pharmacy 22.6 ml/min; Est GFR (African American) 39.7; Est GFR (Non-African American) 34.2; Potassium 3.8 mmol/L (3.5-5.1)
[2020-03-20] MEDS: ceFAZolin 1000MG 1,000 MG/7.5 ML SYR IV SCH ×2 (09:16→20:25)
[2020-03-20] MEDS: PANTOprazole 40 MG TAB PO SCH (09:18)
[2020-03-20] MEDS: carvediloL 12.5 MG TAB PO SCH ×2 (09:18→21:26)
[2020-03-20] MEDS: ASPIRIN 81 MG ECTAB PO SCH (09:18)
[2020-03-20] MEDS: CALCIUM 600MG + VIT D 400 IU TAB PO SCH ×2 (09:19→21:26)
[2020-03-20] MEDS: FUROSEMIDE 20 MG TAB PO SCH (09:19)
[2020-03-20] MEDS: CALCITRIOL 0.25 MCG CAPSULE PO SCH (09:19)
[2020-03-20] MEDS: SERTRALINE HCL 50 MG TABLET PO SCH (09:19)
[2020-03-20] MEDS: INSULIN ASPART 100 UNITS/ML 3 ML PEN SC SCH ×4 (09:23→21:27)
[2020-03-20] MEDS: INSULIN GLARGINE SOLOSTAR 100 UNITS/ML 3 ML PEN SC SCH ×2 (09:24→21:26)
--- NOTE | 2020-03-20 10:18 | Orthopedic Progress Note ---
Date of Service March 20, 2020 Assessment & Plan (1) Cellulitis of right hand: POD 2 s/p I/D Right hand. Continue IV antibx Cx as noted below. Continue OT for hand ROM Admission and Anticipated Discharge Date Admission Date: March 17, 2020 Subjective Postop day 2 Patient sitting up in bed. Awake, alert. No complaints this morning. Pain is controlled. Physical Exam Physical Exam: Dressings removed from the right hand. She no longer has erythema up the forearm and her erythema over the hypothenar and thenar eminences is improved. Mild swelling noted. Incision appears benign. Moving her fingers at this time but does not have full range of motion obviously at this point. She states that she has some numbness across the fingers at this time. Capillary refill is less than 2 seconds. Wound redressed. Results & Data ([facility]) Vital Signs (Past 12 Hours) Vital Signs Temp Pulse Resp BP Pulse Ox 03/20/20 07:43 36.8 C 68 16 159/63 H 93 03/19/20 22:50 36.8 C 65 18 150/70 H 90 [place] [address] / Director: Omer Holly M.D. Clinical Laboratory Report Name: TIM GATES Acct: [id number] Status: ADM [place] 1935 [facility] [place] 03/17/20 Age: 84 Sex: F Dis Date: Loc: Medical/Surgical/Ortho [address] [place] [address]/Bed: N376-1 Spec: [id number] Collected: 03/18/20 Received: 03/18/[address]: Adalberto Montiel MD Copy To: Rui Ruiz MD Source: Wrist OV Order: Ordered: Aer/Ariana Cult/Sm Comments: Comment Culture set #1 Right wrist superficial. Procedure Result Verified Site Gram Stain Final 03/19/20 Gram Stain Result Moderate WBCs Seen Rare Gram Positive Cocci Aero/Ariana Cult Preliminary 03/20/20 Organism 1 Staphylococcus aureus Quantity Rare Sens Sensitivities to Follow S aureus RX M.I.C. --- --------- Clindamycin S <=0.5 Daptomycin S 1 Erythromycin S <=0.5 Oxacillin S <=0.25 Tetracycline S <=4 Trimeth/Sulfa S <=0.5/9.5 Vancomycin S 2 S = SENSITIVE I = INTERMEDIATE R = RESISTANT
--- NOTE | 2020-03-20 13:38 | Hospitalist Progress Note ---
Date of Service March 20, 2020 Assessment & Plan (1) Cellulitis of right hand: Status post carpal tunnel surgery continue IV daptomycin and ceftriaxone, no fever, WBC normal at 6k MRI right wrist with fluid collection, possible deep infection, tenosynovitis I&D on 03/[address] Montiel wound cultures growing MSSA continue Ancef, day 5 of IV antibiotics today change to Keflex QID tomorrow and discharge to home no fever, less pain/swelling, WBC 4k Elevate right upper extremity (2) Abscess of right hand: Superficial abscess drained in ER. Wound culture taken- MSSA daptomycin and ceftriaxone initially, now on Ancef plan for Keflex QID on discharge for another week (3) Tenosynovitis of right hand: Management as above. I&D on 03/[address] Montiel (4) Type 2 DM with CKD stage 3 and hypertension: HbA1c 6.9% Switch her usual dosing of Lantus 15 units every afternoon to 8 units twice daily with hold parameters. NovoLog sliding scale for correction and carb coverage. monitor for hypoglycemia, no episodes today (5) Paroxysmal atrial fibrillation: Hold anticoagulation due to likely need for I&D orthopedics wants patient off Eliquis for 5 days, resume on 03/23 (6) CAD (coronary artery disease): Continue aspirin, carvedilol. Lovastatin Holding Eliquis until 03/23 (7) Chronic combined systolic and diastolic CHF (congestive heart failure): at this time she is euvolemic continue Lasix 20mg PO daily (8) Neuropathy of both upper extremities: Continue gabapentin 700 mg p.o. at bedtime Admission and Anticipated Discharge Date Admission Date: March 17, 2020 Subjective patient is doing great, no pain in wrist, eating and drinking well, no dyspnea on room air she is itching to get out of here I discussed with orthopedics, plan to change to Keflex, can go home tomorrow need to hold Eliquis for 5 days after surgery since she bled the first time, that would be Monday WBC 4k, Cr 1.39, BUN 33, K 3.8 Review of Systems Review of Systems: All systems reviewed & are unremarkable except as noted in Subjective Musculoskeletal: + joint pain (right hand/wrist, better) Physical Exam Constitutional: WD/WN, vitals as above no acute distress Neck: trachea midline, no thyromegaly Respiratory: normal respiratory effort, lungs clear to auscultation Cardiovascular: RRR, no murmur, no edema Gastrointestinal (Abdomen): normal bowel sounds, soft, nontender, no hepatosplenomegaly Musculoskeletal: Head/Neck/Chest: normocephalic, head atraumatic and neck sup ple Extremities: + joint enlargement (right wrist) and strength 5/5 throughout; no cyanosis, no clubbing and no petechiae Skin: + erythema (right wrist and hand) Neurologic: patellar DTR's 2+ bilat, sensation intact and PERRL, EOMI, accommodation nl, no face palsy, no dysarthria Psychiatric: A+Ox3, euthymic affect Lymphatic: no cervical or axillary lymphadenopathy Results & Data Results & Data ([facility]) Vital Signs (Past 12 Hours) Vital Signs Temp Pulse Resp BP Pulse Ox 03/20/20 07:43 36.8 C 68 16 159/63 H 93 Laboratory Results Laboratory Results - last 24 hr 03/19/20 03/19/20 03/20/20 17:25 20:51 06:05 WBC RBC Hgb Hct MCV MCH MCHC RDW Std Deviation RDW Coeff of Carlos Plt Count MPV Immature Gran % (Auto) Neut % (Auto) Lymph % (Auto) [place] % (Auto) Eos % (Auto) Baso % (Auto) Neut # (Auto) Lymph # (Auto) [place] # (Auto) Eos # (Auto) Baso # (Auto) Immature Gran # (Auto) Sodium 142 Potassium 3.8 Chloride 106 Carbon Dioxide 30 Anion Gap 6.0 BUN 33 H D Creatinine 1.39 H Est Cr Clr Drug Dosing 22.6 Est GFR ( Amer) 39.7 Est GFR (Non-Af Amer) 34.2 BUN/Creatinine Ratio 23.7 H Glucose 119 H POC Glucose 169 H 141 H Calcium 9.0 03/20/20 03/20/20 03/20/20 06:05 08:07 11:58 WBC 4.69 L RBC 3.46 L Hgb 9.0 L Hct 28.8 L MCV 83.2 MCH 26.0 MCHC 31.3 L RDW Std Deviation 54.2 H RDW Coeff of Carlos 17.7 H Plt Count 196 MPV 10.9 H Immature Gran % (Auto) 0.2 Neut % (Auto) 51.6 Lymph % (Auto) 36.7 [place] % (Auto) 7.0 Eos % (Auto) 4.3 Baso % (Auto) 0.2 Neut # (Auto) 2.42 Lymph # (Auto) 1.72 [place] # (Auto) 0.33 Eos # (Auto) 0.20 Baso # (Auto) 0.01 Immature Gran # (Auto) 0.01 Sodium Potassium Chloride Carbon Dioxide Anion Gap BUN Creatinine Est Cr Clr Drug Dosing Est GFR ( Amer) Est GFR (Non-Af Amer) BUN/Creatinine Ratio Glucose POC Glucose 140 H 144 H Calcium Medications Administered Current Inpatient Medications Acetaminophen (Acetaminophen 325 Mg Tab) 650 mg PO Q4H PRN PRN Reason: pain/fever Stop: 04/15/20 16:37 Last Admin: 03/19/20 21:21 Dose: 650 mg Documented by: Albuterol (Albuterol Hfa 8 Gm Inhaler) 1 puffs INH QIDR PRN PRN Reason: Shortness of breath or wheezing Stop: 04/15/20 18:59 Last Admin: 03/18/20 09:20 Dose: 1 puffs Documented by: Aspirin (Aspirin 81 Mg Ectab) 81 mg PO [facility] Stop: 04/16/20 08:59 Last Admin: 03/20/20 09:18 Dose: 81 mg Documented by: Calcitriol (Calcitriol 0.25 Mcg Capsule) 0.25 mcg PO MoWeFr@0900 [facility] Stop: 04/17/20 08:59 Last Admin: 03/20/20 09:19 Dose: 0.25 mcg Documented by: Carvedilol (Carvedilol 12.5 Mg Tab) 12.5 mg PO BID [facility] Stop: 04/15/20 20:59 Last Admin: 03/20/20 09:18 Dose: 12.5 mg Documented by: Dextrose (Dextrose 50% 50 Ml Syringe) 25 - 50 ml IV UD PRN; Protocol PRN Reason: Hypoglycemia Protocol Stop: 04/15/20 18:08 Furosemide (Furosemide 20 Mg Tab) [facility] Stop: 04/19/20 08:59 Last Admin: 03/20/20 09:19 Dose: 20 mg Documented by: Gabapentin (Gabapentin 400 Mg Cap) 400 mg PO [facility] Stop: 04/15/20 20:59 Last Admin: 03/19/20 21:24 Dose: 400 mg Documented by: Gabapentin (Gabapentin 300 Mg Cap) 300 mg PO HS [facility] Stop: 04/15/20 20:59 Last Admin: 03/19/20 21:24 Dose: 300 mg Documented by: Glucagon (Glucagon For Inj 1 Mg Vial) 1 mg SQ UD PRN; Protocol PRN Reason: Hypoglycemia Protocol Stop: 04/15/20 18:08 Glucose (Glucose 10 Tabs/Tube) 4 - 8 tabs PO UD PRN; Protocol PRN Reason: Hypoglycemia Protocol Stop: 04/15/20 18:08 Glucose (Glucose 40% Gel 15 Gm Tube) 15 - 30 gm PO UD PRN; Protocol PRN Reason: Hypoglycemia Protocol Stop: 04/15/20 18:08 Cefazolin Sodium (Ancef 1000mg) 1,000 mg in 7.5 mls @ 2.5 mls/min IV Q12H [facility]; Protocol Stop: 03/27/20 07:59 Last Admin: 03/20/20 09:16 Dose: 2.5 mls/min Documented by: Insulin Aspart (Insulin Aspart 100 Units/Ml 3 Ml Pen) 0 units SC ACHS [facility] Stop: 04/17/20 20:59 Last Admin: 03/20/20 09:23 Dose: 2 units Documented by: Insulin Glargine (Insulin Glargine Solostar 100 Units/Ml 3 Ml Pen) 0 - 8 units SC BID [facility] Stop: 04/16/20 08:59 Last Admin: 03/20/20 09:24 Dose: 8 units Documented by: Ipratropium [place] (Ipratropium Hfa Inhaler (Combivent Respimat P&T Subs)) 1 puffs INH QIDR PRN PRN Reason: Shortness Of Breath Or Wheezing Stop: 04/15/20 22:58 Last Admin: 03/18/20 09:19 Dose: 1 puffs Documented by: Miscellaneous (Carbohydrates For Hypoglycemia ) 15 - 30 gm PO UD PRN PRN Reason: Hypoglycemia Protocol Stop: 04/15/20 18:08 Multivitamins/Minerals (Calcium 600mg + Vit D 400 Iu Tab) 1 tab PO BID [facility] Stop: 04/15/20 20:59 Last Admin: 03/20/20 09:19 Dose: 1 tab Documented by: Pantoprazole Sodium (Pantoprazole 40 Mg Tab) 40 mg PO DAILY [facility] Stop: 04/16/20 08:59 Last Admin: 03/20/20 09:18 Dose: 40 mg Documented by: Sertraline HCl (Sertraline Hcl 50 Mg Tablet) 50 mg PO DAILY [facility] Stop: 04/16/20 08:59 Last Admin: 03/20/20 09:19 Dose: 50 mg Documented by: Tramadol HCl (Tramadol Hcl 50 Mg Tablet) 50 - 100 mg PO Q4H PRN; Protocol PRN Reason: Pain Stop: 04/15/20 16:45 Last Admin: 03/18/20 09:12 Dose: 100 mg Documented by: PG Care Time/CCT Total # of Minutes Spent Total Time Spent with Patient: Total time spent is greater than 50% in coordination of care (as documented) at patient's floor/unit and/or counseling patient: Coding Level of Care Code 21650 Subseq Hosp Care Lvl 2 Diagnoses Cellulitis of right hand L03.113 Abscess of right hand L02.511 Tenosynovitis of right hand M65.9 Type 2 DM with CKD stage 3 and hypertension E11.22; I12.9; N18.3 Paroxysmal atrial fibrillation I48.0 CAD (coronary artery disease) I25.10 Chronic combined systolic and diastolic CHF (congestive heart failure) I50.42 Neuropathy of both upper extremities G56.93
--- NOTE | 2020-03-20 15:44 | Consultation Report ---
SOAP note: 03/20/2020 SUBJECTIVE: The patient notes a decrease in pain in the hand. She has some stiffness in the fingers. OBJECTIVE: Right hand exam show well healed surgical incision. No active bleeding. No ecchymosis. I do not see evidence of streaking, erythema or purulent drainage. Fingers show moderate swelling and do show digital stiffness. ASSESSMENT: 1. Postop day #2 status post evacuation of hematoma, right hand. 2. Cultures show methicillin-susceptible Staphylococcus aureus. PLAN: I discussed treatment with her in detail. I do feel that she exhibits significant improvement. Main pathology was likely a hematoma from being on Eliquis. I will treat her for antibiotics. I feel she is safe to be transitioned to oral antibiotics tomorrow and I would recommend a 2-week course of Keflex in total. She should follow up in the office with me this week. I would recommend holding the Eliquis until she is seen by me in the office and cleared to resume anticoagulation. I also recommend her speaking with her medical record specialist to see if she is on appropriate dose of Eliquis as she did have a recurrent bleeding with Eliquis was restarted. IRIS
[2020-03-20] MEDS: ACETAMINOPHEN 325 MG TAB PO PRN (21:25)
[2020-03-20] MEDS: GABAPENTIN 400 MG CAP PO SCH (21:26)
[2020-03-20] MEDS: GABAPENTIN 300 MG CAP PO SCH (21:26)
[2020-03-21] MEDS: SERTRALINE HCL 50 MG TABLET PO SCH (07:45)
[2020-03-21] MEDS: FUROSEMIDE 20 MG TAB PO SCH (07:45)
[2020-03-21] MEDS: PANTOprazole 40 MG TAB PO SCH (07:45)
[2020-03-21] MEDS: carvediloL 12.5 MG TAB PO SCH (07:46)
[2020-03-21] MEDS: CALCIUM 600MG + VIT D 400 IU TAB PO SCH (07:46)
[2020-03-21] MEDS: ASPIRIN 81 MG ECTAB PO SCH (07:46)
[2020-03-21] MEDS: ceFAZolin 1000MG 1,000 MG/7.5 ML SYR IV SCH (07:49)
[2020-03-21] MEDS: INSULIN ASPART 100 UNITS/ML 3 ML PEN SC SCH ×2 (08:46→12:36)
[2020-03-21] MEDS: INSULIN GLARGINE SOLOSTAR 100 UNITS/ML 3 ML PEN SC SCH (08:46)
--- NOTE | 2020-03-21 09:22 | Orthopedic Progress Note ---
Date of Service March 21, 2020 Assessment & Plan (1) Cellulitis of right hand: Postop day #3 status post evacuation of hematoma, right hand. 2. Cultures show methicillin-susceptible Staphylococcus aureus Dressing changed today. Continue OT for ROM. Plan for d/c home today on PO Keflex. Plan to restart Eliquis on Monday03.23.20. F/U with Dr. Montiel next week. Admission and Anticipated Discharge Date Admission Date: March 17, 2020 Subjective Doing well. No pain within the right wrist. States that the medicine doctors have talked to her about being discharged today. Dr. Breaux, her manager dairy, has recommended restarting her Eliquis 5 days postop. Physical Exam Constitutional: WD/WN, vitals as above Skin: no rashes, warm and dry + incision (Healing volar right wrist incision with sutures in place. Minimal erythema) Neurologic: normal touch/pain/proprioception Psychiatric: A+Ox3, euthymic affect Speech: normal rate/rhythm/volume of speech Results & Data ([facility]) Vital Signs (Past 12 Hours) Vital Signs Temp Pulse Resp BP Pulse Ox 03/21/20 07:34 36.9 C 74 18 171/66 H 93 03/21/20 04:25 97 03/20/20 23:12 36.7 C 70 14 167/73 H 100
--- NOTE | 2020-03-21 12:05 | Discharge Summary ---
Date of Service March 21, 2020 Admission HPI Per Admitting Provider Kassy Vasquez is an 84 year old female who presents to the ER with right hand erythema, swelling and pain. She reports having carpal tunnel surgery to her right hand 2 weeks ago. The patient notes routine healing since then and was followed up by orthopedics in the last week with no concerns at that time. She denies any trauma to her hand. 2 days ago she noted increased swelling at nighttime. The following day she called her doctor who prescribed Keflex. Despite taking this yesterday - the swelling, erythema and pain have progressed. She is now unable to fully extend her fingers. She denies any fevers or chills. In the ER she was noted to have an abscess which was drained and wound culture taken. Blood cultures taken. She was started on daptomycin and cefepime for cellulitis. She was referred to medicine for admission and ongoing management of right hand abscess/cellulitis. Principal Diagnosis Right hand cellultis, infected hematoma s/p carpal tunnel surgery, MSSA Discharge Exam Constitutional WD/WN, vitals as above no acute distress Neck trachea midline, no thyromegaly Respiratory normal respiratory effort, lungs clear to auscultation Cardiovascular RRR, no murmur, no edema Gastrointestinal (Abdomen) normal bowel sounds, soft, nontender, no hepatosplenomegaly Musculoskeletal Head/Neck/Chest: normocephalic, head atraumatic and neck supple Extremities: + joint enlargement (right wrist) and strength 5/5 throughout; no cyanosis, no clubbing and no petechiae Skin + erythema (right wrist and hand) Neurologic patellar DTR's 2+ bilat, sensation intact and PERRL, EOMI, accommodation nl, no face palsy, no dysarthria Psychiatric A+Ox3, euthymic affect Lymphatic no cervical or axillary lymphadenopathy Discharge Data Allergies Allergy/AdvReac Type Severity Reaction Status Date / Time tamsulosin Allergy Severe SHORTNESS Verified 03/06/20 13:27 OF BREATH butalbital Allergy Intermediate SHORTNESS Verified 03/06/20 13:27 OF BREATH nitrofurantoin Allergy Unknown Verified 03/06/20 13:27 [From Macrobid] Cephalosporins AdvReac Severe TONGUE Verified 03/16/20 12:09 SWELLING WITH KEFLEX- tolerating keflex 03/16/20 levetiracetam AdvReac Intermediate RASH Verified 03/06/20 13:27 morphine AdvReac Unknown hallucinati Verified 03/06/20 13:27 ons Sulfa (Sulfonamide AdvReac Unknown "SULFA Verified 03/06/20 13:27 Antibiotics) DRUGS" - UNKNOWN Consultations 03/16/20 13:35 ED Decision to Admit Stat 03/16/20 14:20 Consult Orthopedic Surgery Routine Procedures Performed Operation Date: 03/18/20 07:00 Actual Procedures p Right Hand Irrigation and Debridement, evacuation of hematoma.(Right) - Zack Montiel MD Ordered Studies 03/17/20 00:00 MR wrist RT wo/w con Urgent 03/17/20 17:02 US extremity non-vascular ltd Urgent Hospital Course (1) Cellulitis of right hand: Status post carpal tunnel surgery a few days prior to admission initially treated with daptomycin and ceftriaxone, no fever, WBC normal at 6k MRI right wrist with fluid collection, possible deep infection, tenosynovitis I&D on 03/[address] Montiel wound cultures growing MSSA changed to Ancef, day 6 of IV antibiotics today initially planned for Keflex on discharge but she has allergy, caused tongue swelling, confirmed this with patient she also has allergy to sulfa drugs will use Doxycycline 100mg BID x 8 more days no fever, less pain/swelling, WBC 4k Elevate right upper extremity and continue hand exercises stay off eliquis until follow up on 03/[address] Montiel on 03/26 for wound check and further instructions pain is controlled with Tylenol alone (2) Abscess of right hand: Superficial abscess drained in ER. Wound culture taken- MSSA daptomycin and ceftriaxone initially, now on Ancef see above for plan, doing much better (3) Tenosynovitis of right hand: Management as above. I&D on 03/[address] Montiel found infected hematoma, drained (4) Type 2 DM with CKD stage 3 and hypertension: HbA1c 6.9% Switch her usual dosing of Lantus 15 units every afternoon to 8 units twice daily with hold parameters. NovoLog sliding scale for correction and carb coverage. monitor for hypoglycemia, no episodes while admitted continue prior home regimen on discharge (5) Paroxysmal atrial fibrillation: Hold anticoagulation due to likely need for I&D orthopedics wants patient off Eliquis until 03/26 she is on appropriate dosing of 2.5mg BID, this is lowest dose possible (6) CAD (coronary artery disease): Continue aspirin, carvedilol. Lovastatin Holding Eliquis until 03/26 (7) Chronic combined systolic and diastolic CHF (congestive heart failure): at this time she is euvolemic continue Lasix 20mg PO daily (8) Neuropathy of both upper extremities: Continue gabapentin 700 mg p.o. at bedtime Total Time Total Time Spent Total Time Spent (In Minutes): 34 minutes Total Time Includes: Examination of the Patient, Discharge Planning, Medication Reconciliation and Communication With Other Providers (orthopedics) Discharge Plan Discharge Items Patient Disposition: Home - Home Health Services Reason For Visit: HAND CELLULITIS Discharge Diagnosis: Right hand cellulitis s/p carpal tunnel surgery with hematoma s/p incision/drainage of hematoma Condition on Discharge: Good Goals: complete course of Keflex follow up with Dr. Montiel on 03/26 Activity: Per Instructions section Non-emergency contact: Surgeon Call non-emergency contact if: your pain is not controlled, your temperature is above 101.5, your wound has increased redness and your wound has increased drainage Follow-up/Referrals: Crystal Mcguire CRNP [Primary Care Provider] - Zack Montiel MD [Physician] - (Follow up for a wound check next . 03/26/20 at 10:50 AM. Please call for any changes [phone]) Diet: Carb Consistent or DM2 and Heart Healthy Addtl Attending Provider Instructions: Medications: - DOXYCYCLINE: 100mg twice a day for 8 more days, start this evening Right hand cellulitis, hematoma as complication of carpal tunnel surgery superficial and deep cultures grew out MSSA (sensitive staph aureus) treated with broad spectrum antibiotics at first with Ceftriaxone and Vancomycin, changed to Ancef the past two days planned to give you Keflex but you have allergy of tongue swelling will change to Doxycycline 100mg twice a day for 8 more days to complete 14 days total treatment you received 6.5 days of IV antibiotics while here, no fever, WBC is normal and swelling improved Atrial fibrillation: orthopedic surgery wants you to hold Eliquis until you see Dr. Montiel in the office on 03/26 Addtl Bar Assistant Provider Instructions: Do not take your Eliquis until you see Dr. Montiel in the office next week. Continue your finger exercises regularly every day. Keep your dressing clean and dry. Change your dressing every other day. You can use your Eduard wrap and 4 x 4 gauze. You can shower if you keep a waterproof covering over the dressing. Please call the office if you notice increased redness, swelling, increased drainage, pain not relieved by medications, temperature of 101.5 or greater. [phone] Please follow-up with next , 03/26/2020 at 10:50 AM for a wound check Pending Studies at Discharge: No Stand-Alone Forms: My [facility] [employer], Smoking Cessation Medications and DC Order Prescriptions: New doxycycline hyclate 100 mg capsule 100 mg PO BID 8 Days Qty: 16 RF: 0 Continued Combivent Respimat 20-100 mcg/actuation Mist 1 puff INHALATION QID PRN (Reason: Wheezing) Qty: 0 RF: 0 calcium carbonate-vitamin D3 [Os-Emile 500 + D3] 500 mg(1,250mg) -200 unit Tablet 2 tab PO BID Qty: 0 RF: 0 Lantus Solostar U-100 Insulin 100 unit/mL (3 mL) insulin pen 15 units SQ DAILY Qty: 16 RF: 5 valsartan 40 mg tablet 40 mg PO BID Qty: 180 RF: 3 calcitriol 0.25 mcg capsule 0.25 mcg PO .COMPLEX Qty: 30 RF: 2 carvedilol 12.5 mg tablet 12.5 mg PO BID Qty: 60 RF: 8 furosemide 20 mg tablet 20 mg PO QAM Qty: 30 RF: 8 gabapentin [Neurontin] 400 mg capsule 400 mg PO HS Qty: 30 RF: 8 ipratropium-albuterol 0.5 mg-3 mg(2.5 mg base)/3 mL solution for nebulization 3 ml INHALATION Q4H PRN (Reason: Wheezing) Qty: 180 RF: 8 sertraline 50 mg tablet 50 mg PO DAILY Qty: 30 RF: 5 pantoprazole 40 mg tablet,delayed release (DR/EC) 40 mg PO DAILY Qty: 90 RF: 3 lovastatin 40 mg tablet 40 mg PO HS Qty: 90 RF: 3 gabapentin [Neurontin] 300 mg capsule 300 mg PO HS Qty: 90 RF: 3 neomycin-polymyxin B-dexameth 3.5 mg/g-10,000 unit/g-0.1 % ointment 1 applic ophthalmic (eye) TID Qty: 3.5 RF: 0 aspirin 81 mg Tablet,Delayed Release (Dr/Ec) 81 mg PO QAM RF: 0 Discontinued Eliquis 2.5 mg tablet 2.5 mg PO BID RF: 0 Discharge Orders: Discharge Order (Routine); Ordered 03/21/20 Ordered By: Leo Rincon/Other Patient Handouts: Managing Type 2 Diabetes Admission Data Admit Date/Time: 03/17/20 08:56 Attending Provider: Leo Kwon Admit Provider: Rui Ruiz Primary Care Provider: Crystal Mcguire Other Providers: Rui Ruiz ; Zack Montiel Coding Level of Care Code D/C Day Management >30 mins Diagnoses Cellulitis of right hand L03.113 Abscess of right hand L02.511 Tenosynovitis of right hand M65.9 Type 2 DM with CKD stage 3 and hypertension E11.22; I12.9; N18.3 Paroxysmal atrial fibrillation I48.0 CAD (coronary artery disease) I25.10 Chronic combined systolic and diastolic CHF (congestive heart failure) I50.42 Neuropathy of both upper extremities G56.93
== END 2020-03-21 14:07 | disposition home or self-care (01) | DRG 857 ==
LOC: ED 10:49 → 3N 10:49 → SUATTDRO 14:11 → 3N 16:19

== ENCOUNTER 2020-06-12 14:11 | Inpatient (IN) ==
[2020-06-12 15:11] LABS: Appearance Urine Clear (Clear); Bacteria Urine Automated Negative (Negative); Bilirubin Urine Negative (Negative); Blood Urine Negative (Negative); Color Urine Yellow; Epithelial Cell Urine Auto >30 /lpf (0-5); Glucose Urine UA Negative (Negative); Ketones Urine Negative (Negative); Leukocyte Esterase Urine 2+ (Negative); Nitrite Urine Negative (Negative); Protein Urine Negative (Negative); RBC Urine Automated 0-4 /hpf (0-4); Specific Gravity Urine 1.009 (1.000-1.030); Urobilinogen Urine Negative (Negative); pH Urine 7.5 (4.5-7.5)
[2020-06-12] MEDS ORDERED: ACETAMINOPHEN 1,000 MG/100 ML VIAL IV STA (15:45)
[2020-06-12] MEDS ORDERED: SODIUM CHLORIDE 0.9% 500 ML IV ONE (15:47)
[2020-06-12 16:33] LABS: Basophils # (auto) 0.01 K/uL (0-0.2); Basophils % (auto) 0.2 %; Eosinophils # (auto) 0.13 K/uL (0-0.5); Eosinophils % (auto) 2.3 %; Hematocrit (blood only) 31.6 % (37-47); Hemoglobin 9.8 g/dL (12.0-16.0); Immature Granulocytes # (auto) 0.01 K/uL (0.00-0.02); Immature Granulocytes % (auto) 0.2 %; Lymphocytes # (auto) 1.74 K/uL (1.2-3.4); Lymphocytes % (auto) 30.2 %; Mean Corpuscular Hemoglobin 25.9 pg (25-34); Mean Corpuscular Volume 83.4 fL (80-100); Mean Platelet Volume 10.7 fL (7.4-10.4); Monocytes # (auto) 0.24 K/uL (0.11-0.59); Monocytes % (auto) 4.2 %; Neutrophils # (auto) 3.64 K/uL (1.4-6.5); Neutrophils % (auto) 62.9 %; Platelet Count 159 K/uL (130-400); RDW Coefficient of Variation 18.2 % (11.5-14.5); RDW Standard Deviation 56.3 fL (36.4-46.3); Red Blood Count 3.79 M/uL (4.2-5.4); White Blood Count 5.77 K/uL (4.8-10.8)
[2020-06-12 16:34] LABS: iSTAT Blood Urea Nitrogen 17 mg/dl (7-18); iSTAT Carbon Dioxide > 40 mmol/L (24-31); iSTAT Chloride 93 mmol/L (101-112); iSTAT Creatinine 1.1 mg/dl (0.6-1.3); iSTAT Glucose 118 mg/dl (70-99); iSTAT Hematocrit 35 % (37-47); iSTAT Hemoglobin 11.9 g/dl (12.0-16.0); iSTAT Ionized Calcium 1.19 mmol/l (1.12-1.32); iSTAT Sodium 142 mmol/L (135-144)
[2020-06-12 16:52] LABS: Albumin Level 3.7 gm/dl (3.4-5.0); BUN Creatinine Ratio 16.3 (10-20); Calcium 9.5 mg/dl (8.5-10.1); Creatinine Clr Calc Pharmacy 33.2 ml/min; Est GFR (African American) 60.1; Est GFR (Non-African American) 51.9; Potassium 3.1 mmol/L (3.5-5.1)
[2020-06-12 16:55] LABS: Albumin Globulin Ratio 0.9 (0.9-2); Bilirubin,Total 0.4 mg/dl (0.2-1); Globulin 4.2 gm/dl (2.5-4.0); Total Protein 7.9 gm/dl (6.4-8.2)
[2020-06-12] MEDS ORDERED: VANCOMYCIN CONSULT ACTIVE PRN (17:11)
[2020-06-12] MEDS ORDERED: VANCOMYCIN HCL 1,500 MG in SODIUM CHLORIDE 0.9% 500 ML IV ONE (17:11)
[2020-06-12] MEDS ORDERED: cefTRIAXone SODIUM 1,000 MG/50 ML BAG IV STA (17:11)
[2020-06-12 17:31] LABS: Influenza A virus by PCR Negative (Neg); Influenza B virus by PCR Negative (Neg); RSV by PCR Negative (Neg); SARS CoV2 RNA(COVID-19) InHosp NEGATIVE (Negative)
[2020-06-12] MEDS ORDERED: OPTIRAY 300 100mL IV ONE (18:42)
--- NOTE | 2020-06-12 19:33 | CT Scan Report ---
ABDOMEN AND PELVIS CT WITH IV CONTRAST CT DOSE: 243.75 mGy.cm HISTORY: Acute urinary tract infection with back and abdominal pain abd/back pain, uti TECHNIQUE: Multiaxial CT images of the abdomen and pelvis were performed following the IV administrat ion of 88 cc of Optiray, A dose lowering technique was utilized adhering to the principles of ALARA. COMPARISON STUDY: CT pelvis 11/27/2019, CT abdomen pelvis 06/15/2019 FINDINGS: Cardiomegaly with partially imaged pacer leads and coronary artery calcifications. Mitral a nnular prosthesis. Small left and small to moderate right pleural effusions with dependent bibasilar opacities suggestive of atelectasis. Bronchial wall thickening. No pneumatosis or pneumoperitoneum. T here is mild marginal nodularity of the liver which may reflect cirrhosis. Unremarkable spleen and ad renal glands. Cholecystectomy. Mild to moderate pancreatic atrophy with unchanged mild prominence of the pancreatic duct. Multifocal cortical scarring and parenchymal thinning of the left greater than right kidneys. Bilater al renal vascular calcifications. No hydronephrosis. Probable cyst of the inferior pole left kidney, 8 mm. Mild distention of the urinary bladder. Hysterectomy. Extensive calcified plaque of the abdomin al aorta without aneurysm. No adenopathy. Metallic density structure is noted within the right inguin al tissues, unchanged. No bowel obstruction or bowel wall thickening. Colonic diverticulosis. Appendectomy. No ascites or me senteric inflammation. Streak artifact from right hip total joint arthroplasty and cannulated screws of the left proximal femur. Demineralized appearance of the bones. There is progressive compression d eformity of the chronic L3 compression fracture. Unchanged chronic L1 compression deformity. IMPRESSION: 1. No bowel obstruction or bowel wall thickening. 2. Right greater than left layering pleural effusions with bibasilar atelectasis and bronchial wall t hickening. 3. Colonic diverticulosis. 4. Progressively worsened vertebral body height loss of the chronic L3 compression deformity. 5. Additional findings as above. ACT 112: Negative or not required by law. The above report was generated using voice recognition software. It may contain grammatical, syntax o r spelling errors. Electronically signed by: Andry Alcantar M.D. 06/12/2020 7:31 PM
[2020-06-12] MEDS ORDERED: POTASSIUM CHLORIDE CRTAB 20 MEQ TABCR PO STA (20:59)
--- NOTE | 2020-06-12 21:08 | History & Physical Report ---
Date of Service June 12, 2020 Assessment & Plan (1) Chronic combined systolic and diastolic CHF (congestive heart failure): Acute on chronic combined systolic and diastolic CHF/atrial fibrillation/CAD/hypertension- Patient is noticeably dyspneic at rest. She and daughter both report that she has had more issues with fluid retention over the past week, and she has had increased dosing of Lasix in the morning. Continue apixaban, aspirin, carvedilol and valsartan. Hold oral Lasix 20 mg p.o. daily, and give Lasix 40 mg IV this evening. Placed on Lasix 40 mg IV every morning Potassium 3.1 in the ED. We will give Klor-Con 40 mEq p.o. now, then repeat in 2 hours and follow every morning Present on Admission?: Yes (2) UTI (urinary tract infection): 06/01/2020 Enterococcus Raffinosus-sensitive to ampicillin 11/25/2019 Citrobacter freundii 06/15/2019 E. coli Placed on Unasyn 1.5 g IV every 6 hours Follow urine culture and sensitivity Present on Admission?: Yes (3) Atrial fibrillation: See above Present on Admission?: Yes (4) CAD (coronary artery disease): See above Present on Admission?: Yes (5) On anticoagulant therapy: See above Present on Admission?: Yes (6) COPD (chronic obstructive pulmonary disease): Continue Combivent Present on Admission?: Yes (7) Dyslipidemia: Continue lovastatin Present on Admission?: Yes (8) Diabetes mellitus: Decrease insulin glargine from 15 to 8 units subcu every morning Placed on Accu-Cheks before meals and at bedtime with NovoLog coverage per scale Check hemoglobin A1c Present on Admission?: Yes History of Present Illness Chief Complaint: The patient presents to the emergency department with complaints of persistent burning with urination, and reports that she and family have concerns about worsening shortness of breath over the past several days. Primary Care Provider: DAVID Palmer The patient is 85-year-old female with a past medical history including recurrent urinary tract infection, anemia, atrial fibrillation on long-term anticoagulation with Eliquis, carpal tunnel syndrome bilaterally, pubic ramus fracture, ambulatory dysfunction, diabetes mellitus type 2, CKD stage III, hypertension, depression, vitamin D deficiency, secondary hyperparathyroidism, COPD, combined systolic and diastolic CHF, cardiomyopathy, cardiac pacemaker, CA D, insomnia, dyslipidemia, diabetic peripheral neuropathy and history of complete atrioventricular block. She has been treated with antibiotics for urinary tract infection in the outpatient setting, but due to persistent symptoms, has presented to the ED for assessment. The patient has also had worsening shortness of breath over the past several days, as noted by the patient herself and by her family. Allergies Allergy/AdvReac Type Severity Reaction Status Date / Time tamsulosin Allergy Severe SHORTNESS Verified 06/12/20 16:42 OF BREATH butalbital Allergy Intermediate SHORTNESS Verified 06/12/20 16:42 OF BREATH nitrofurantoin Allergy Unknown Unknown Verified 06/12/20 16:42 [From Macrobid] Cephalosporins AdvReac Severe TONGUE Verified 06/12/20 16:42 SWELLING WITH KEFLEX- tolerating keflex 03/16/20 levetiracetam AdvReac Intermediate RASH Verified 06/12/20 16:42 morphine AdvReac Intermediate hallucinati Verified 06/12/20 16:42 ons Sulfa (Sulfonamide AdvReac Unknown "SULFA Verified 06/12/20 16:42 Antibiotics) DRUGS" - UNKNOWN Home Medications Medication Instructions Recorded Confirmed Type Combivent Respimat 1 puff INHALATION QID PRN #0 05/08/14 06/12/20 History aspirin 81 mg PO QAM 10/01/18 06/12/20 History valsartan 40 mg tablet 40 mg PO BID #180 tab 10/16/19 06/12/20 Rx carvedilol 12.5 mg tablet 12.5 mg PO BID #60 tab 12/26/19 06/12/20 Rx furosemide 20 mg tablet 20 mg PO QAM #30 tab 12/26/19 06/12/20 Rx gabapentin 400 mg capsule 400 mg PO HS #30 cap 12/26/19 06/12/20 Rx ipratropium 0.5 mg-albuterol 3 mg 3 ml INHALATION Q4H PRN #180 ml 12/26/19 Rx (2.5 mg base)/3 mL nebulization soln sertraline 50 mg tablet 50 mg PO DAILY #30 tab 01/03/20 06/12/20 Rx gabapentin 300 mg capsule 300 mg PO HS #90 cap 01/23/20 06/12/20 Rx lovastatin 40 mg tablet 40 mg PO HS #90 tab 01/23/20 06/12/20 Rx pantoprazole 40 mg tablet,delayed 40 mg PO DAILY #90 tab 01/23/20 06/12/20 Rx release neomycin 3.5 mg/g-polymyxin B 1 applic OPHTHALMIC (EYE) TID #3.5 03/06/20 06/12/20 Rx 10,000 unit/g-dexameth 0.1 % eye g oint apixaban 2.5 mg tablet 2.5 mg PO BID #60 tab 04/03/20 06/12/20 Rx calcium carbonate 500 mg (1,250 1 tab PO DAILY #0 tab 04/09/20 06/12/20 History mg)-vitamin D3 200 unit tablet portable O2 concentrator #1 ea 05/20/20 05/20/20 Rx amoxicillin 500 mg PO BID #14 cap 06/04/20 06/12/20 Rx insulin glargine [Lantus Solostar 15 unit SQ QAM 06/04/20 06/12/20 History U-100 Insulin] calcitriol 0.25 mcg PO 3XWK 06/12/20 06/12/20 History Past Med/Surg History Medical History Abscess of hand, right Acute UTI (urinary tract infection) Allergy to multiple antibiotics Anemia Atrial fibrillation Cardiac pacemaker for complete hear block Cellulitis of right hand Cerebellar infarct Chronic renal disease, stage III Depression Diabetes mellitus Extremity atherosclerosis with intermittent claudication Gait instability History of chest pain Hypertension Secondary hyperparathyroidism of renal origin Solitary pulmonary nodule Transient ischemic attack (TIA) Vitamin D deficiency Surgical History History of nasal surgery Hx of carpal tunnel repair Family History Other Family history non-contributory Social History Smoking Status: Former smoker Second Hand Exposure: No; Do You Dip or Chew Tobacco: No; Tobacco Cessation Education Requested by Patient: No Hx Alcohol Use: No Hx Substance Use: No Preferred Language: P[place]in[place] Communication Ability: Effective Visual Impairment: No Limitations 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 Beliefs That Will Affect Care: None marital status: / Current Living Situation: Alone Other Information That Helps Us Care for You: No Feels Safe at Home: Yes Safety Concerns: Feels Safe At This Time Assistive Devices: Glasses Review of Systems Review of Systems: The patient denies chest pain, palpitations, cough, sore throat, fevers, chills, sweats, nausea, vomiting, diarrhea , constipation, abdominal pain, blood in urine or stool, lightheadedness, dizziness, headache, memory loss, loss of consciousness, rash, abnormal bruising or bleeding, imbalance, focal weakness, numbness or tingling in arms or legs, generalized arthralgias or myalgias, back or neck pain, or night sweats. The review of systems is otherwise negative other than for that already noted above, and at least 10 systems have been reviewed. Physical Exam Physical Exam: The patient is awake, alert and oriented 3, well developed and well nourished, normocephalic and atraumatic, lying in bed and in no acute distress. HEENT--PERRL, EOMI, mucous membranes and oropharynx normal. Neck--supple. No JVD. No bruits. Thyroid normal, trachea midline, no adenopathy. Heart--normal S1 and S2. No murmurs, rubs or gallops. Lungs--crackles at the bases bilaterally. Mild respiratory distress, no accessory muscle use. Abdomen--normal bowel sounds and soft. Nontender. Nondistended, no hernias or masses, no organomegaly. Extremities--no cyanosis or clubbing. 1+ bilateral pretibial pitting edema. Dermatologic--normal skin turgor, normal color, no abnormal lymph nodes, no rash. Neurologic--cranial nerves II through XII grossly intact. Rheumatologic--normal range of motion. Psychiatric--normal affect. Results & Data Results & Data ([facility]) Vital Signs (Past 12 Hours) Vital Signs Temp Pulse Pulse Resp BP BP Pulse Ox 06/12/20 20:59 69 22 98 06/12/20 20:52 72 22 201/69 H 98 06/12/20 18:52 69 17 195/90 H 100 06/12/20 16:30 66 16 182/89 H 100 06/12/20 15:42 60 17 173/131 H 100 06/12/20 14:21 97.5 F L 68 20 135/59 L 100 Laboratory Results Laboratory Results WBC 5.77 K/uL (4.8-10.8) 06/12/20 16:10 RBC 3.79 M/uL (4.2-5.4) L 06/12/20 16:10 Hgb 9.8 g/dL (12.0-16.0) L 06/12/20 16:10 POC Hgb 11.9 g/dl (12.0-16.0) L 06/12/20 16:21 Hct 31.6 % (37-47) L 06/12/20 16:10 POC Hct 35 % (37-47) L 06/12/20 16:21 MCV 83.4 fL (80-100) 06/12/20 16:10 MCH 25.9 pg (25-34) 06/12/20 16:10 MCHC 31.0 g/dL (32-36) L 06/12/20 16:10 RDW Std Deviation 56.3 fL (36.4-46.3) H 06/12/20 16:10 RDW Coeff of Carlos 18.2 % (11.5-14.5) H 06/12/20 16:10 Plt Count 159 K/uL (130-400) 06/12/20 16:10 MPV 10.7 fL (7.4-10.4) H 06/12/20 16:10 Immature Gran % (Auto) 0.2 % 06/12/20 16:10 Neut % (Auto) 62.9 % 06/12/20 16:10 Lymph % (Auto) 30.2 % 06/12/20 16:10 Osborne % (Auto) 4.2 % 06/12/20 16:10 Eos % (Auto) 2.3 % 06/12/20 16:10 Baso % (Auto) 0.2 % 06/12/20 16:10 Neut # (Auto) 3.64 K/uL (1.4-6.5) 06/12/20 16:10 Lymph # (Auto) 1.74 K/uL (1.2-3.4) 06/12/20 16:10 Osborne # (Auto) 0.24 K/uL (0.11-0.59) 06/12/20 16:10 Eos # (Auto) 0.13 K/uL (0-0.5) 06/12/20 16:10 Baso # (Auto) 0.01 K/uL (0-0.2) 06/12/20 16:10 Immature Gran # (Auto) 0.01 K/uL (0.00-0.02) 06/12/20 16:10 POC Sodium 142 mmol/L (135-144) 06/12/20 16:21 Sodium 139 mmol/L (136-145) 06/12/20 16:10 POC Potassium 3.0 mmol/L (3.3-5.0) L 06/12/20 16:21 Potassium 3.1 mmol/L (3.5-5.1) L 06/12/20 16:10 POC Chloride 93 mmol/L (101-112) L 06/12/20 16:21 Chloride 99 mmol/L (98-107) 06/12/20 16:10 Carbon Dioxide 36 mmol/L (21-32) H 06/12/20 16:10 POC Total CO2 > 40 mmol/L (24-31) H* 06/12/20 16:21 Anion Gap 4.0 (3-11) 06/12/20 16:10 POC Anion Gap 13.0 mmol/L (16-25) L 06/12/20 16:21 POC BUN 17 mg/dl (7-18) 06/12/20 16:21 BUN 16 mg/dl (7-18) 06/12/20 16:10 Creatinine 0.98 mg/dl (0.6-1.2) 06/12/20 16:10 POC Creatinine 1.1 mg/dl (0.6-1.3) 06/12/20 16:21 Est Cr Clr Drug Dosing 33.2 ml/min 06/12/20 16:10 Est GFR ( Amer) 60.1 06/12/20 16:10 Est GFR (Non-Af Amer) 51.9 06/12/20 16:10 BUN/Creatinine Ratio 16.3 (10-20) 06/12/20 16:10 Glucose 118 mg/dl (70-99) H 06/12/20 16:10 POC Glucose 181 mg/dl (70-99) H 06/12/20 22:49 POC Glucose (other) 118 mg/dl (70-99) H 06/12/20 16:21 Lactate 1.6 mmol/L (0.4-2.0) 06/12/20 16:10 Calcium 9.5 mg/dl (8.5-10.1) 06/12/20 16:10 POC Ioniz Calcium Zulema 1.19 mmol/l (1.12-1.32) 06/12/20 16:21 Total Bilirubin 0.4 mg/dl (0.2-1) 06/12/20 16:10 AST 15 U/L (15-37) 06/12/20 16:10 ALT 13 U/L (12-78) 06/12/20 16:10 Alkaline Phosphatase 79 U/L (45-117) 06/12/20 16:10 Total Protein 7.9 gm/dl (6.4-8.2) 06/12/20 16:10 Albumin 3.7 gm/dl (3.4-5.0) 06/12/20 16:10 Globulin 4.2 gm/dl (2.5-4.0) H 06/12/20 16:10 Albumin/Globulin Ratio 0.9 (0.9-2) 06/12/20 16:10 Lipase 99 U/L (73-393) 06/12/20 16:10 Urine Color Yellow 06/12/20 14:50 Urine Appearance Clear (Clear) 06/12/20 14:50 Urine pH 7.5 (4.5-7.5) 06/12/20 14:50 Ur Specific [place] 1.009 (1.000-1.030) 06/12/20 14:50 Urine Protein Negative (Negative) 06/12/20 14:50 Urine Glucose (UA) Negative (Negative) 06/12/20 14:50 Urine Ketones Negative (Negative) 06/12/20 14:50 Urine Blood Negative (Negative) 06/12/20 14:50 Urine Nitrite Negative (Negative) 06/12/20 14:50 Urine Bilirubin Negative (Negative) 06/12/20 14:50 Urine Urobilinogen Negative (Negative) 06/12/20 14:50 Ur Leukocyte Esterase 2+ (Negative) H 06/12/20 14:50 Urine WBC (Auto) 10-30 /hpf (0-5) H 06/12/20 14:50 Urine RBC (Auto) 0-4 /hpf (0-4) 06/12/20 14:50 U Hyaline Cast (Auto) 1-5 /lpf (0-5) 06/12/20 14:50 U Epithel Cells (Auto) >30 /lpf (0-5) H 06/12/20 14:50 Urine Bacteria (Auto) Negative (Negative) 06/12/20 14:50 COVID-19 Eval Order [facility]FluRsv at [facility] 06/12/20 16:30 SARS-CoV-2 (PCR) NEGATIVE (Negative) 06/12/20 16:30 Influenza Type A (PCR) Negative (Neg) 06/12/20 16:30 Influenza Type B (PCR) Negative (Neg) 06/12/20 16:30 RSV (RT-PCR) Negative (Neg) 06/12/20 16:30 Impressions Abdomen/Pelvis CT 06/12/20 15:[address] WITH IV CONTRAST CT DOSE: 243.75 mGy.cm HISTORY: Acute urinary tract infection with back and abdominal pain abd/back pain, uti TECHNIQUE: Multiaxial CT images of the abdomen and pelvis were performed following the IV administration of 88 cc of Optiray, A dose lowering technique was utilized adhering to the principles of ALARA. COMPARISON STUDY: CT pelvis 11/27/2019, CT abdomen pelvis 06/15/2019 FINDINGS: Cardiomegaly with partially imaged pacer leads and coronary artery calcifications. Mitral annular prosthesis. Small left and small to moderate right pleural effusions with dependent bibasilar opacities suggestive of atelectasis. Bronchial wall thickening. No pneumatosis or pneumoperitoneum. There is mild marginal nodularity of the liver which may reflect cirrhosis. Unremarkable spleen and adrenal glands. Cholecystectomy. Mild to moderate pancreatic atrophy with unchanged mild prominence of the pancreatic duct. Multifocal cortical scarring and parenchymal thinning of the left greater than right kidneys. Bilateral renal vascular calcifications. No hydronephrosis. Probable cyst of the inferior pole left kidney, 8 mm. Mild distention of the urinary bladder. Hysterectomy. Extensive calcified plaque of the abdominal aorta without aneurysm. No adenopathy. Metallic density structure is noted within the right inguinal tissues, unchanged. No bowel obstruction or bowel wall thickening. Colonic diverticulosis. Appendectomy. No ascites or mesenteric inflammation. Streak artifact from right hip total joint arthroplasty and cannulated screws of the left proximal femur. Demineralized appearance of the bones. There is progressive compression deformity of the chronic L3 compression fracture. Unchanged chronic L1 compression deformity. IMPRESSION: 1. No bowel obstruction or bowel wall thickening. 2. Right greater than left layering pleural effusions with bibasilar atelectasis and bronchial wall thickening. 3. Colonic diverticulosis. 4. Progressively worsened vertebral body height loss of the chronic L3 compression deformity. 5. Additional findings as above. ACT 112: Negative or not required by law. The above report was generated using voice recognition software. It may contain grammatical, syntax or spelling errors. Electronically signed by: Andry Alcantar M.D. 06/12/2020 7:31 PM Code Status & VTE Plan Code Status Full code VTE Prophylaxis Plan VTE Prophylaxis will be ordered: Yes PG Care Time/CCT Total # of Minutes Spent Total Time Spent with Patient: Total time spent is greater than 50% in coordination of care (as documented) at patient's floor/unit and/or counseling patient: Coding Level of Care Code 01406 Initial Inpt Care Lvl 3 Diagnoses Chronic combined systolic and diastolic CHF (congestive heart failure) I50.42 UTI (urinary tract infection) N30.00 Hematuria presence: without hematuria Urinary tract infection type: acute cystitis Atrial fibrillation I48.91 CAD (coronary artery disease) I25.10 On anticoagulant therapy Z79.01 COPD (chronic obstructive pulmonary disease) J44.9 COPD type: unspecified COPD Dyslipidemia E78.5 Diabetes mellitus E11.9 (1) UTI (urinary tract infection) Hematuria presence: without hematuria Urinary tract infection type: acute cystitis Qualified Code(s): N30.00 - Acute cystitis without hematuria (2) COPD (chronic obstructive pulmonary disease) COPD type: unspecified COPD Qualified Code(s): J44.9 - Chronic obstructive pulmonary disease, unspecified
[2020-06-12] MEDS ORDERED: FUROSEMIDE 40 MG/4 ML VIAL IV STA (21:14)
--- NOTE | 2020-06-12 21:47 | Emergency Department Note ---
Impression & Plan Acute UTI, Lower abdominal pain, Chronic combined systolic and diastolic CHF (congestive heart failure), COPD (chronic obstructive pulmonary disease) ED Provider Note NAME: TIM GATES AGE: 85 SEX: F ARRIVES VIA: Walk-In INFORMANT: Patient, ED PROVIDER(S): Nick Baldwin MD CHIEF COMPLAINT: Urinary symptoms PLAN: Disposition: Admit MEDICAL DECISION MAKING: The patient is a pleasant 85-year-old woman with a past medical history of COPD on 3 L home oxygen, atrial fibrillation on Eliquis, history of ischemic cardiomyopathy with EF 45%, hypertension, hyperlipidemia who presents to the emergency department with continued urinary symptoms with complaints of burning with urination and frequency as well as bladder pain. The patient's symptoms occur in the setting of being diagnosed initially with urinary tract infection on 06/01 which grew Enterococcus Raffinosus and so the patient's antibiotics were changed from Cipro to amoxicillin per sensitivities when seen in the emergency department on 06/04. The patient reports persistence of her symptoms and so returns emergency department today. Otherwise she denies any fevers, chills, cough, congestion, new shortness of breath, nausea, vomiting, diarrhea. He is on her baseline home oxygen at this time. On arrival the patient is chronically ill-appearing but no acute distress, afebrile with stable vital signs. She has mild suprapubic tenderness without guarding or rebound. WBC and platelets within normal limits. H/H 9.8/31.6 similar to prior values. Chemistry with bicarb of 40 consistent with suspected chronic hypercapnia in the setting of the patient's COPD. Potassium 3.1 and electrolytes otherwise without significant abnormality. LFTs without significant abnormality. Lactate 1.6, within normal limits. Lipase is not elevated. UA today does show 2+ leuk est erase, and WBCs albeit with epithelial cells present. No bacteria however in the setting of recently completed course of amoxicillin. Covid-19 PCR negative. Influenza and RSV PCR also negative. CT abdomen pelvis was performed and did not demonstrate acute intraabdominal process. Bilateral pleural effusions noted. Given the patient's persistent urinary symptoms with prior urine culture limiting treatment options reasonable to meet the patient for further management. Patient was treated empirically with ceftriaxone and vancomycin. Patient ultimately was agreeable with plan for admission. Of note, during the patient's ED evaluation she did have degree of short of breath. It does appear that the patient is significantly over her dry weight of 116 pounds (per records) and so suspect may have component of CHF in the setting of lying supine for her CT scan. Case was discussed with Dr. Vines, [facility] hospitalist, who will evaluate the patient for admission. Will defer further management of CHF to admitting team. Triage Nursing notes reviewed and agree them. Prior medical records reviewed Vital Signs: reviewed and remarkable for hypertension. Differential diagnosis: Renal colic, UTI, appendicitis, diverticulitis, mesenteric ischemia, aortic pathology, infections, inflammatory bowel disease, PUD, biliary pathology, as well as other pathologies. ER treatment provided: See below. Diagnostics interpreted by me: Cardiac Monitoring: An order for continuous cardiac monitoring was placed and demonstrated paced rhythm, 68bpm, no ectopy. Laboratory studies: See below Imaging studies: See below Consultation(s): Case was discussed with Dr. Vines, [facility] hospitalist, who will evaluate the patient for admission. HPI: The patient is a pleasant 85-year-old woman with a past medical history of COPD on 3 L home oxygen, atrial fibrillation on Eliquis, history of ischemic cardiomyopathy with EF 45%, hypertension, hyperlipidemia who presents to the emergency department with continued urinary symptoms with complaints of burning with urination and frequency as well as bladder pain. The patient's symptoms occur in the setting of being diagnosed initially with urinary tract infection on 06/01 which grew Enterococcus Raffinosus and so the patient's antibiotics were changed from Cipro to amoxicillin per sensitivities when seen in the emergency department on 06/04. The patient reports persistence of her symptoms and so returns emergency department today. Otherwise she denies any fevers, chills, cough, congestion, new shortness of breath, nausea, vomiting, diarrhea. He is on her baseline home oxygen at this time. ROS: See above HPI for pertinent positives & negatives. A total of 10 systems reviewed and were otherwise negative. PAST MEDICAL HISTORY:See Below PAST SURGICAL HISTORY:See Below FAMILY HISTORY:See Below SOCIAL HISTORY:See Below HOME MEDICATIONS:See Below ALLERGIES:See Below VITALS:See Below PHYSICAL EXAMINATION: GENERAL: Awake, alert, chronically ill-appearing, in no distress HENT: Normocephalic, atraumatic. Oropharynx with dry mucous membranes and otherwise unremarkable. EYES: Normal conjunctiva. Sclera non-icteric. NECK: Supple. No nuchal rigidity. FROM. No JVD. RESPIRATORY: Diminished at bases and otherwise clear. CARDIAC: Regular rate, normal rhythm. Extremities warm and well perfused. Pulses equal. ABDOMEN: Soft, non-distended. Mild suprapubic tenderness to palpation. No rebound or guarding. No masses. RECTAL: Deferred. MUSCULOSKELETAL: Chest examination reveals no tenderness. The back is symmetrical on inspection without obvious abnormality. There is no CVA tenderness to palpation. No joint edema. LOWER EXTREMITIES: Calves are equal size bilaterally and non-tender. No edema. No discoloration. NEURO: Normal sensorium. No sensory or motor deficits noted. SKIN: No rash or jaundice noted. Nick Baldwin MD Past Med/Surg History Medical History Abscess of hand, right Acute UTI (urinary tract infection) Allergy to multiple antibiotics Anemia Atrial fibrillation Cardiac pacemaker for complete hear block Cellulitis of right hand Cerebellar infarct Chronic renal disease, stage III Depression Diabetes mellitus Extremity atherosclerosis with intermittent claudication Gait instability History of chest pain Hypertension Secondary hyperparathyroidism of renal origin Solitary pulmonary nodule Transient ischemic attack (TIA) Vitamin D deficiency Surgical History History of nasal surgery Hx of carpal tunnel repair Family History Other Family history non-contributory Social History Smoking Status: Former smoker Second Hand Exposure: No; Do You Dip or Chew Tobacco: No; Tobacco Cessation Education Requested by Patient: No Hx Alcohol Use: No Hx Substance Use: No Preferred Language: Paraguayan Communication Ability: Effective Visual Impairment: No Limitations Churn Operator Required: No Beliefs That Will Affect Care: None marital status: / Current Living Situation: Alone Other Information That Helps Us Care for You: No Feels Safe at Home: Yes Safety Concerns: Feels Safe At This Time Assistive Devices: Glasses Allergies Allergies Allergy/AdvReac Type Severity Reaction Status Date / Time tamsulosin Allergy Severe SHORTNESS Verified 06/12/20 16:42 OF BREATH butalbital Allergy Intermediate SHORTNESS Verified 06/12/20 16:42 OF BREATH nitrofurantoin Allergy Unknown Unknown Verified 06/12/20 16:42 [From Macrobid] Cephalosporins AdvReac Severe TONGUE Verified 06/12/20 16:42 SWELLING WITH KEFLEX- tolerating keflex 03/16/20 levetiracetam AdvReac Intermediate RASH Verified 06/12/20 16:42 morphine AdvReac Intermediate hallucinati Verified 06/12/20 16:42 ons Sulfa (Sulfonamide AdvReac Unknown "SULFA Verified 06/12/20 16:42 Antibiotics) DRUGS" - UNKNOWN Home Meds Home Medications Medication Instructions Recorded Confirmed Combivent Respimat 1 puff INHALATION QID PRN #0 05/08/14 06/12/20 aspirin 81 mg PO QAM 10/01/18 06/12/20 calcium carbonate 500 mg (1,250 1 tab PO DAILY #0 tab 04/09/20 06/12/20 mg)-vitamin D3 200 unit tablet insulin glargine [Lantus Solostar 15 unit SQ QAM 06/04/20 06/12/20 U-100 Insulin] calcitriol 0.25 mcg PO 3XWK 06/12/20 06/12/20 Previous Rx's Medication Instructions Recorded valsartan 40 mg tablet 40 mg PO BID #180 tab 10/16/19 carvedilol 12.5 mg tablet 12.5 mg PO BID #60 tab 12/26/19 furosemide 20 mg tablet 20 mg PO QAM #30 tab 12/26/19 gabapentin 400 mg capsule 400 mg PO HS #30 cap 12/26/19 ipratropium 0.5 mg-albuterol 3 mg 3 ml INHALATION Q4H PRN #180 ml 12/26/19 (2.5 mg base)/3 mL nebulization soln sertraline 50 mg tablet 50 mg PO DAILY #30 tab 01/03/20 gabapentin 300 mg capsule 300 mg PO HS #90 cap 01/23/20 lovastatin 40 mg tablet 40 mg PO HS #90 tab 01/23/20 pantoprazole 40 mg tablet,delayed 40 mg PO DAILY #90 tab 01/23/20 release neomycin 3.5 mg/g-polymyxin B 1 applic OPHTHALMIC (EYE) TID #3.5 03/06/20 10,000 unit/g-dexameth 0.1 % eye g oint apixaban 2.5 mg tablet 2.5 mg PO BID #60 tab 04/03/20 portable O2 concentrator #1 ea 05/20/20 amoxicillin 500 mg PO BID #14 cap 06/04/20 Results & Data (ED) Vital Signs Vital Signs - 24 hr 06/12/20 14:21 06/12/20 15:42 06/12/20 16:30 Temperature 36.4 C L Temperature Source Oral Pulse Rate 68 Pulse Rate [Left Apical] 60 66 Pulse Rhythm Regular Pulse Rhythm [Left Apical] Regular Regular Pulse Strength Normal Pulse Strength [Left Apical] Normal Normal Respiratory Rate 20 17 16 Respiratory Effort / Characteristics Non-Labored Non-Labored Spontaneous Non-Labored Spontaneous Respiratory Depth Normal Normal Normal Respiratory Pattern Regular Regular Regular Blood Pressure 135/59 L Blood Pressure [Right Arm] 173/131 H 182/89 H Blood Pressure Mean 84 Blood Pressure Mean [Right Arm] 145 120 Blood Pressure Position Sitting Blood Pressure Position [Right Arm] Lying Lying Pulse Oximetry 100 100 100 Oxygen Delivery Method Nasal Cannula Nasal Cannula Nasal Cannula Oxygen Flow Rate 3 3 3 Sepsis Recent Fever Within 48 Hours No Sepsis New/Unexplained Change in Mental Status No Sepsis Action Taken by Nursing No Action Required 06/12/20 18:52 06/12/20 20:52 06/12/20 20:59 Temperature Temperature Source Pulse Rate 69 Pulse Rate [Left Apical] 69 72 Pulse Rhythm Regular Pulse Rhythm [Left Apical] Regular Regular Pulse Strength Pulse Strength [Left Apical] Normal Normal Respiratory Rate 17 22 22 Respiratory Effort / Characteristics Non-Labored Spontaneous Labored Respiratory Depth Normal Shallow Respiratory Pattern Regular Tachypnea Blood Pressure Blood Pressure [Right Arm] 195/90 H 201/69 H Blood Pressure Mean Blood Pressure Mean [Right Arm] 125 113 Blood Pressure Position Blood Pressure Position [Right Arm] Lying Sitting Pulse Oximetry 100 98 98 Oxygen Delivery Method Nasal Cannula Nasal Cannula Nasal Cannula Oxygen Flow Rate 3 3 Sepsis Recent Fever Within 48 Hours Sepsis New/Unexplained Change in Mental Status Sepsis Action Taken by Nursing Laboratory Data Attestation: I reviewed the patient's lab results. Result diagrams: 06/12/20 16:10 06/12/20 16:10 Lab Results 06/12/20 06/12/20 06/12/20 Range/Units 14:50 16:10 16:10 WBC 5.77 (4.8-10.8) K/uL RBC 3.79 L (4.2-5.4) M/uL Hgb 9.8 L (12.0-16.0) g/dL POC Hgb (12.0-16.0) g/dl Hct 31.6 L (37-47) % POC Hct (37-47) % MCV 83.4 (80-100) fL MCH 25.9 (25-34) pg MCHC 31.0 L (32-36) g/dL RDW Std Deviation 56.3 H (36.4-46.3) fL RDW Coeff of Carlos 18.2 H (11.5-14.5) % Plt Count 159 (130-400) K/uL MPV 10.7 H (7.4-10.4) fL Immature Gran % (Auto) 0.2 % Neut % (Auto) 62.9 % Lymph % (Auto) 30.2 % [place] % (Auto) 4.2 % Eos % (Auto) 2.3 % Baso % (Auto) 0.2 % Neut # (Auto) 3.64 (1.4-6.5) K/uL Lymph # (Auto) 1.74 (1.2-3.4) K/uL [place] # (Auto) 0.24 (0.11-0.59) K/uL Eos # (Auto) 0.13 (0-0.5) K/uL Baso # (Auto) 0.01 (0-0.2) K/uL Immature Gran # (Auto) 0.01 (0.00-0.02) K/uL POC Sodium (135-144) mmol/L Sodium 139 (136-145) mmol/L POC Potassium (3.3-5.0) mmol/L Potassium 3.1 L (3.5-5.1) mmol/L POC Chloride (101-112) mmol/L Chloride 99 (98-107) mmol/L Carbon Dioxide 36 H (21-32) mmol/L POC Total CO2 (24-31) mmol/L Anion Gap 4.0 (3-11) POC Anion Gap (16-25) mmol/L POC BUN (7-18) mg/dl BUN 16 (7-18) mg/dl Creatinine 0.98 (0.6-1.2) mg/dl POC Creatinine (0.6-1.3) mg/dl Est Cr Clr Drug Dosing 33.2 ml/min Est GFR ( Amer) 60.1 Est GFR (Non-Af Amer) 51.9 BUN/Creatinine Ratio 16.3 (10-20) Glucose 118 H (70-99) mg/dl POC Glucose (70-99) mg/dl POC Glucose (other) (70-99) mg/dl Lactate (0.4-2.0) mmol/L Calcium 9.5 (8.5-10.1) mg/dl POC Ioniz Calcium Zulema (1.12-1.32) mmol/l Total Bilirubin 0.4 (0.2-1) mg/dl AST 15 (15-37) U/L ALT 13 (12-78) U/L Alkaline Phosphatase 79 (45-117) U/L Total Protein 7.9 (6.4-8.2) gm/dl Albumin 3.7 (3.4-5.0) gm/dl Globulin 4.2 H (2.5-4.0) gm/dl Albumin/Globulin Ratio 0.9 (0.9-2) Lipase 99 (73-393) U/L Urine Color Yellow Urine Appearance Clear (Clear) Urine pH 7.5 (4.5-7.5) Ur Specific [place] 1.009 (1.000-1.030) Urine Protein Negative (Negative) Urine Glucose (UA) Negative (Negative) Urine Ketones Negative (Negative) Urine Blood Negative (Negative) Urine Nitrite Negative (Negative) Urine Bilirubin Negative (Negative) Urine Urobilinogen Negative (Negative) Ur Leukocyte Esterase 2+ H (Negative) Urine WBC (Auto) 10-30 H (0-5) /hpf Urine RBC (Auto) 0-4 (0-4) /hpf U Hyaline Cast (Auto) 1-5 (0-5) /lpf U Epithel Cells (Auto) >30 H (0-5) /lpf Urine Bacteria (Auto) Negative (Negative) COVID-19 Eval Order SARS-CoV-2 (PCR) (Negative) Influenza Type A (PCR) (Neg) Influenza Type B (PCR) (Neg) RSV (RT-PCR) (Neg) 06/12/20 06/12/20 06/12/20 Range/Units 16:10 16:21 16:30 WBC (4.8-10.8) K/uL RBC (4.2-5.4) M/uL Hgb (12.0-16.0) g/dL POC Hgb 11.9 L (12.0-16.0) g/dl Hct (37-47) % POC Hct 35 L (37-47) % MCV (80-100) fL MCH (25-34) pg MCHC (32-36) g/dL RDW Std Deviation (36.4-46.3) fL RDW Coeff of Carlos (11.5-14.5) % Plt Count (130-400) K/uL MPV (7.4-10.4) fL Immature Gran % (Auto) % Neut % (Auto) % Lymph % (Auto) % [place] % (Auto) % Eos % (Auto) % Baso % (Auto) % Neut # (Auto) (1.4-6.5) K/uL Lymph # (Auto) (1.2-3.4) K/uL [place] # (Auto) (0.11-0.59) K/uL Eos # (Auto) (0-0.5) K/uL Baso # (Auto) (0-0.2) K/uL Immature Gran # (Auto) (0.00-0.02) K/uL POC Sodium 142 (135-144) mmol/L Sodium (136-145) mmol/L POC Potassium 3.0 L (3.3-5.0) mmol/L Potassium (3.5-5.1) mmol/L POC Chloride 93 L (101-112) mmol/L Chloride (98-107) mmol/L Carbon Dioxide (21-32) mmol/L POC Total CO2 > 40 H* (24-31) mmol/L Anion Gap (3-11) POC Anion Gap 13.0 L (16-25) mmol/L POC BUN 17 (7-18) mg/dl BUN (7-18) mg/dl Creatinine (0.6-1.2) mg/dl POC Creatinine 1.1 (0.6-1.3) mg/dl Est Cr Clr Drug Dosing ml/min Est GFR ( Amer) Est GFR (Non-Af Amer) BUN/Creatinine Ratio (10-20) Glucose (70-99) mg/dl POC Glucose (70-99) mg/dl POC Glucose (other) 118 H (70-99) mg/dl Lactate 1.6 (0.4-2.0) mmol/L Calcium (8.5-10.1) mg/dl POC Ioniz Calcium Zulema 1.19 (1.12-1.32) mmol/l Total Bilirubin (0.2-1) mg/dl AST (15-37) U/L ALT (12-78) U/L Alkaline Phosphatase (45-117) U/L Total Protein (6.4-8.2) gm/dl Albumin (3.4-5.0) gm/dl Globulin (2.5-4.0) gm/dl Albumin/Globulin Ratio (0.9-2) Lipase (73-393) U/L Urine Color Urine Appearance (Clear) Urine pH (4.5-7.5) Ur Specific [place] (1.000-1.030) Urine Protein (Negative) Urine Glucose (UA) (Negative) Urine Ketones (Negative) Urine Blood (Negative) Urine Nitrite (Negative) Urine Bilirubin (Negative) Urine Urobilinogen (Negative) Ur Leukocyte Esterase (Negative) Urine WBC (Auto) (0-5) /hpf Urine RBC (Auto) (0-4) /hpf U Hyaline Cast (Auto) (0-5) /lpf U Epithel Cells (Auto) (0-5) /lpf Urine Bacteria (Auto) (Negative) COVID-19 Eval Order CovFluRsv at [facility] SARS-CoV-2 (PCR) (Negative) Influenza Type A (PCR) (Neg) Influenza Type B (PCR) (Neg) RSV (RT-PCR) (Neg) 06/12/20 06/12/20 Range/Units 16:30 17:44 WBC (4.8-10.8) K/uL RBC (4.2-5.4) M/uL Hgb (12.0-16.0) g/dL POC Hgb (12.0-16.0) g/dl Hct (37-47) % POC Hct (37-47) % MCV (80-100) fL MCH (25-34) pg MCHC (32-36) g/dL RDW Std Deviation (36.4-46.3) fL RDW Coeff of Carlos (11.5-14.5) % Plt Count (130-400) K/uL MPV (7.4-10.4) fL Immature Gran % (Auto) % Neut % (Auto) % Lymph % (Auto) % [place] % (Auto) % Eos % (Auto) % Baso % (Auto) % Neut # (Auto) (1.4-6.5) K/uL Lymph # (Auto) (1.2-3.4) K/uL [place] # (Auto) (0.11-0.59) K/uL Eos # (Auto) (0-0.5) K/uL Baso # (Auto) (0-0.2) K/uL Immature Gran # (Auto) (0.00-0.02) K/uL POC Sodium (135-144) mmol/L Sodium (136-145) mmol/L POC Potassium (3.3-5.0) mmol/L Potassium (3.5-5.1) mmol/L POC Chloride (101-112) mmol/L Chloride (98-107) mmol/L Carbon Dioxide (21-32) mmol/L POC Total CO2 (24-31) mmol/L Anion Gap (3-11) POC Anion Gap (16-25) mmol/L POC BUN (7-18) mg/dl BUN (7-18) mg/dl Creatinine (0.6-1.2) mg/dl POC Creatinine (0.6-1.3) mg/dl Est Cr Clr Drug Dosing ml/min Est GFR ( Amer) Est GFR (Non-Af Amer) BUN/Creatinine Ratio (10-20) Glucose (70-99) mg/dl POC Glucose 112 H (70-99) mg/dl POC Glucose (other) (70-99) mg/dl Lactate (0.4-2.0) mmol/L Calcium (8.5-10.1) mg/dl POC Ioniz Calcium Zulema (1.12-1.32) mmol/l Total Bilirubin (0.2-1) mg/dl AST (15-37) U/L ALT (12-78) U/L Alkaline Phosphatase (45-117) U/L Total Protein (6.4-8.2) gm/dl Albumin (3.4-5.0) gm/dl Globulin (2.5-4.0) gm/dl Albumin/Globulin Ratio (0.9-2) Lipase (73-393) U/L Urine Color Urine Appearance (Clear) Urine pH (4.5-7.5) Ur Specific [place] (1.000-1.030) Urine Protein (Negative) Urine Glucose (UA) (Negative) Urine Ketones (Negative) Urine Blood (Negative) Urine Nitrite (Negative) Urine Bilirubin (Negative) Urine Urobilinogen (Negative) Ur Leukocyte Esterase (Negative) Urine WBC (Auto) (0-5) /hpf Urine RBC (Auto) (0-4) /hpf U Hyaline Cast (Auto) (0-5) /lpf U Epithel Cells (Auto) (0-5) /lpf Urine Bacteria (Auto) (Negative) COVID-19 Eval Order SARS-CoV-2 (PCR) NEGATIVE (Negative) Influenza Type A (PCR) Negative (Neg) Influenza Type B (PCR) Negative (Neg) RSV (RT-PCR) Negative (Neg) Administered Medications Apixaban (Apixaban 2.5 Mg Tab) 2.5 mg PO BID [facility] Stop: 07/12/20 22:28 Last Admin: 06/12/20 23:15 Dose: 2.5 mg Documented by: [id number] Carvedilol (Carvedilol 12.5 Mg Tab) 12.5 mg PO BID [facility] Stop: 07/12/20 22:28 Last Admin: 06/12/20 23:15 Dose: 12.5 mg Documented by: [id number] Gabapentin (Gabapentin 300 Mg Cap) 300 mg PO [facility] Stop: 07/12/20 22:28 Last Admin: 06/12/20 23:13 Dose: 300 mg Documented by: [id number] Gabapentin (Gabapentin 400 Mg Cap) 400 mg PO [facility] Stop: 07/12/20 22:28 Last Admin: 06/12/20 23:15 Dose: 400 mg Documented by: [id number] Lovastatin (Lovastatin 20 Mg Tab) 40 mg PO [facility] Stop: 07/12/20 22:28 Last Admin: 06/12/20 23:14 Dose: 40 mg Documented by: [id number] Neomycin/Polymyxin/Dexamethasone (Neomycin/Polymyxin/Dexametha Op Oint 3.5 Gm Tube) 1 appln OP TID [facility] Stop: 07/12/20 22:28 Last Admin: 06/12/20 23:13 Dose: 1 appln Documented by: [id number] Valsartan (Valsartan 80 Mg Tab) 40 mg PO BID [facility] Stop: 07/12/20 22:28 Last Admin: 06/12/20 23:14 Dose: 40 mg Documented by: [id number] Discontinued Medications Furosemide (Furosemide 40 Mg/4 Ml Vial) 40 mg IV NOW STA Stop: 06/12/20 21:15 Last Admin: 06/12/20 21:30 Dose: 40 mg Documented by: [id number] Acetaminophen (Ofirmev) 1,000 mg in 100 mls @ 400 mls/hr IV NOW STA Stop: 06/12/20 15:59 Last Infusion: 06/12/20 16:47 Dose: 0 mls/hr Documented by: [id number] Admin: 06/12/20 16:32 Dose: 400 mls/hr Documented by: [id number] Sodium Chloride (Nss) 500 mls @ 999 mls/hr IV .Q31M ONE Stop: 06/12/20 16:17 Last Infusion: 06/12/20 17:05 Dose: 0 mls/hr Documented by: [id number] Admin: 06/12/20 16:32 Dose: 999 mls/hr Documented by: [id number] Ceftriaxone Sodium (Rocephin) 1,000 mg in 50 mls @ 100 mls/hr IV NOW STA Stop: 06/12/20 17:40 Last Infusion: 06/12/20 17:58 Dose: 0 mls/hr Documented by: [id number] Admin: 06/12/20 17:28 Dose: 100 mls/hr Documented by: [id number] Vancomycin HCl 1,500 mg/ (Sodium Chloride) 530 mls @ 200 mls/hr IV NOW ONE Stop: 06/12/20 19:49 Last Infusion: 06/12/20 22:50 Dose: 0 mls/hr Documented by: [id number] Admin: 06/12/20 18:59 Dose: 200 mls/hr Documented by: [id number] Ioversol (Optiray 300 100ml) 100 ml IV ONCE ONE Stop: 06/12/20 18:43 Last Admin: 06/12/20 18:42 Dose: 100 ml Documented by: [id number] Potassium Chloride (Potassium Chloride Crtab 20 Meq Tabcr) 40 meq PO NOW STA Stop: 06/12/20 21:00 Last Admin: 06/12/20 21:30 Dose: 40 meq Documented by: [id number] Potassium Chloride (Potassium Chloride Crtab 20 Meq Tabcr) 40 meq PO TODAY@2300 ONE Stop: 06/12/20 23:01 Last Admin: 06/13/20 00:32 Dose: 40 meq Documented by: [id number] Imaging Data Radiologist's Impression: Abdomen/Pelvis CT 06/12/20 15:[address] WITH IV CONTRAST CT DOSE: 243.75 mGy.cm HISTORY: Acute urinary tract infection with back and abdominal pain abd/back pain, uti TECHNIQUE: Multiaxial CT images of the abdomen and pelvis were performed following the IV administration of 88 cc of Optiray, A dose lowering technique was utilized adhering to the principles of ALARA. COMPARISON STUDY: CT pelvis 11/27/2019, CT abdomen pelvis 06/15/2019 FINDINGS: Cardiomegaly with partially imaged pacer leads and coronary artery calcifications. Mitral annular prosthesis. Small left and small to moderate right pleural effusions with dependent bibasilar opacities suggestive of atelectasis. Bronchial wall thickening. No pneumatosis or pneumoperitoneum. There is mild marginal nodularity of the liver which may reflect cirrhosis. Unremarkable spleen and adrenal glands. Cholecystectomy. Mild to moderate pancreatic atrophy with unchanged mild prominence of the pancreatic duct. Multifocal cortical scarring and parenchymal thinning of the left greater than right kidneys. Bilateral renal vascular calcifications. No hydronephrosis. Probable cyst of the inferior pole left kidney, 8 mm. Mild distention of the urinary bladder. Hysterectomy. Extensive calcified plaque of the abdominal aorta without aneurysm. No adenopathy. Metallic density structure is noted within the right inguinal tissues, unchanged. No bowel obstruction or bowel wall thickening. Colonic diverticulosis. Appendectomy. No ascites or mesenteric inflammation. Streak artifact from right hip total joint arthroplasty and cannulated screws of the left proximal femur. Demineralized appearance of the bones. There is progressive compression deformity of the chronic L3 compression fracture. Unchanged chronic L1 compression deformity. IMPRESSION: 1. No bowel obstruction or bowel wall thickening. 2. Right greater than left layering pleural effusions with bibasilar atelectasis and bronchial wall thickening. 3. Colonic diverticulosis. 4. Progressively worsened vertebral body height loss of the chronic L3 compression deformity. 5. Additional findings as above. ACT 112: Negative or not required by law. The above report was generated using voice recognition software. It may contain grammatical, syntax or spelling errors. Electronically signed by: Andry Alcantar M.D. 06/12/2020 7:31 PM Discharge Plan Visit Data Chief Complaint: Urinary Symptoms Stated Complaint: BLADDER INFECTION-NOT GETTING BETTER,FEET SWELLING ED Provider: Nick Baldwin Discharge Problem: Acute UTI, Lower abdominal pain, Chronic combined systolic and diastolic CHF (congestive heart failure), COPD (chronic obstructive pulmonary disease) Patient Disposition: Admitted As Inpatient Discharge Instructions Interventions: ED Discharge Assessment Last Done: 06/12/20 22:42 Discharge Problem: COPD (chronic obstructive pulmonary disease) Qualifiers: COPD type: unspecified COPD Qualified Code(s): J44.9 - Chronic obstructive pulmonary disease, unspecified
[2020-06-12] MEDS ORDERED: ONDANSETRON INJ 2 MG/ML 2 ML VIAL IV PRN (22:29)
[2020-06-12] MEDS ORDERED: ALBUT/IPRATROP 3MG/0.5MG NEB 3 ML VIAL INH PRN (22:29)
[2020-06-12] MEDS ORDERED: ACETAMINOPHEN 325 MG TAB PO PRN (22:29)
[2020-06-12] MEDS ORDERED: ALBUTEROL HFA 8 GM INHALER INH PRN (22:45)
[2020-06-12] MEDS ORDERED: IPRATROPIUM BROMIDE HFA INHALER INH PRN (22:47)
[2020-06-12] MEDS ORDERED: POTASSIUM CHLORIDE CRTAB 20 MEQ TABCR PO ONE (23:00)
[2020-06-12] MEDS ORDERED: GLUCAGON FOR INJ 1 MG VIAL SQ PRN (23:00)
[2020-06-12] MEDS ORDERED: DEXTROSE 50% 50 ML SYRINGE IV PRN (23:00)
[2020-06-12] MEDS ORDERED: CARBOHYDRATES FOR HYPOGLYCEMIA PO PRN (23:00)
[2020-06-12] MEDS ORDERED: GLUCOSE 10 TABS/TUBE PO PRN (23:00)
[2020-06-12] MEDS ORDERED: GLUCOSE 40% GEL 15 GM TUBE PO PRN (23:00)
[2020-06-12] MEDS: GABAPENTIN 300 MG CAP PO SCH (23:13)
[2020-06-12] MEDS: NEOMYCIN/POLYMYXIN/DEXAMETHA OP OINT 3.5 GM TUBE OP SCH (23:13)
[2020-06-12] MEDS: LOVASTATIN 20 MG TAB PO SCH (23:14)
[2020-06-12] MEDS: VALSARTAN 80 MG TAB PO SCH (23:14)
[2020-06-12] MEDS: GABAPENTIN 400 MG CAP PO SCH (23:15)
[2020-06-12] MEDS: carvediloL 12.5 MG TAB PO SCH (23:15)
[2020-06-12] MEDS: APIXABAN 2.5 MG TAB PO SCH (23:15)
[2020-06-13] MEDS: AMPICILLIN/SULBACTAM SOD 1,500 MG in 0.9 % SODIUM CHLORIDE 100 ML IV SCH ×3 (02:00→20:43)
[2020-06-13] MEDS: POTASSIUM CHLORIDE CRTAB 20 MEQ TABCR PO SCH (07:08)
[2020-06-13] MEDS: FUROSEMIDE 40 MG in SYRINGE 0 ML IV SCH (07:08)
[2020-06-13] MEDS: SERTRALINE HCL 50 MG TABLET PO SCH (07:09)
[2020-06-13] MEDS: ASPIRIN 81 MG ECTAB PO SCH (07:09)
[2020-06-13] MEDS: PANTOprazole 40 MG TAB PO SCH (07:10)
[2020-06-13] MEDS: CALCIUM 600MG + VIT D 400 IU TAB PO SCH (07:10)
[2020-06-13] MEDS: carvediloL 12.5 MG TAB PO SCH ×2 (07:10→21:40)
[2020-06-13] MEDS: APIXABAN 2.5 MG TAB PO SCH ×2 (07:11→21:39)
[2020-06-13] MEDS: VALSARTAN 80 MG TAB PO SCH ×3 (07:11→21:45)
[2020-06-13] MEDS: NEOMYCIN/POLYMYXIN/DEXAMETHA OP OINT 3.5 GM TUBE OP SCH ×5 (07:11→21:47)
[2020-06-13 07:29] LABS: Basophils # (auto) 0.01 K/uL (0-0.2); Basophils % (auto) 0.2 %; Eosinophils # (auto) 0.23 K/uL (0-0.5); Eosinophils % (auto) 3.9 %; Hematocrit (blood only) 30.4 % (37-47); Hemoglobin 9.2 g/dL (12.0-16.0); Immature Granulocytes # (auto) 0.01 K/uL (0.00-0.02); Immature Granulocytes % (auto) 0.2 %; Lymphocytes # (auto) 1.68 K/uL (1.2-3.4); Lymphocytes % (auto) 28.2 %; Mean Corpuscular Hemoglobin 25.6 pg (25-34); Mean Corpuscular Hgb Conc 30.3 g/dL (32-36); Mean Corpuscular Volume 84.7 fL (80-100); Mean Platelet Volume 11.5 fL (7.4-10.4); Monocytes # (auto) 0.33 K/uL (0.11-0.59); Monocytes % (auto) 5.5 %; Neutrophils # (auto) 3.69 K/uL (1.4-6.5); Platelet Count 162 K/uL (130-400); RDW Coefficient of Variation 18.1 % (11.5-14.5); RDW Standard Deviation 56.7 fL (36.4-46.3); Red Blood Count 3.59 M/uL (4.2-5.4); White Blood Count 5.95 K/uL (4.8-10.8)
[2020-06-13 07:52] LABS: Albumin Globulin Ratio 0.8 (0.9-2); Albumin Level 3.5 gm/dl (3.4-5.0); BUN Creatinine Ratio 13.3 (10-20); Bilirubin,Total 0.4 mg/dl (0.2-1); Calcium 9.1 mg/dl (8.5-10.1); Creatinine Clr Calc Pharmacy 27.1 ml/min; Est GFR (African American) 55.3; Est GFR (Non-African American) 47.7; Globulin 4.2 gm/dl (2.5-4.0); Magnesium 1.8 mg/dl (1.8-2.4); Potassium 3.8 mmol/L (3.5-5.1); Total Protein 7.7 gm/dl (6.4-8.2); Troponin I 0.029 ng/ml (0-0.045)
[2020-06-13] MEDS: INSULIN GLARGINE SOLOSTAR 100 UNITS/ML 3 ML PEN SQ SCH (08:42)
--- NOTE | 2020-06-13 14:05 | Hospitalist Progress Note ---
Date of Service June 13, 2020 Assessment & Plan (1) Chronic combined systolic and diastolic CHF (congestive heart failure): Acute on chronic combined systolic and diastolic CHF/atrial fibrillation/CAD/hypertension- Patient is on Lasix 40 mg IV daily. Renal function is 14/1.05 this morning, will continue to monitor Does not appear that the patient has had much diuresis, continue to monitor I's/O's and other day and consider increasing Lasix depending on renal function. (2) UTI (urinary tract infection): 06/01/2020 Enterococcus Raffinosus-sensitive to ampicillin 11/25/2019 Citrobacter freundii 06/15/2019 E. coli Continue Unasyn 1.5 g every 6 hours as ordered If patient does continue to have recurrent UTI with different organisms, I would consider urology consultation (3) Atrial fibrillation: Rate controlled, on Eliquis (4) CAD (coronary artery disease): See above (5) On anticoagulant therapy: See above (6) COPD (chronic obstructive pulmonary disease): Continue Combivent (7) Dyslipidemia: Continue lovastatin (8) Diabetes mellitus: Decrease insulin glargine from 15 to 8 units subcu every morning Placed on Accu-Cheks before meals and at bedtime with NovoLog coverage per scale Check hemoglobin A1c Admission and Anticipated Discharge Date Admission Date: June 12, 2020 Subjective Patient seen and examined. Asleep but easily arousable. Pleasant and in no distress. Patient has been afebrile overnight. Denies any symptoms such as chest pain, shortness of breath, abdominal pain, nausea, or vomiting. Physical Exam Constitutional: WD/WN, vitals as above no acute distress Neck: trachea midline, no thyromegaly Respiratory: normal respiratory effort, lungs clear to auscultation normal respiratory effort Auscultation: lungs clear to auscultation bilaterally Cardiovascular: RRR, no murmur, no edema Vessels: + JVD Extremities: + edema (trace) Gastrointestinal (Abdomen): normal bowel sounds, soft, nontender, no hepatos plenomegaly Musculoskeletal: no cyanosis or clubbing, extremities motor strength 5/5 Skin: no rashes, warm and dry Results & Data Results & Data ([facility]) Vital Signs (Past 12 Hours) Vital Signs Temp Pulse Resp BP Pulse Ox Pulse Ox 06/13/20 11:52 36.8 C 63 22 170/71 H 100 06/13/20 10:19 36.5 C 66 18 189/73 H 100 06/13/20 08:05 97 06/13/20 07:57 81 L 06/13/20 07:46 36.5 C 66 18 189/73 H 100 06/13/20 03:58 36.8 C 65 20 151/65 H 99 PG Care Time/CCT Total # of Minutes Spent Total Time Spent with Patient: Total time spent is greater than 50% in coordination of care (as documented) at patient's floor/unit and/or counseling patient: Coding Level of Care Code 72416 Subseq Hosp Care Lvl 2 Diagnoses Chronic combined systolic and diastolic CHF (congestive heart failure) I50.42 UTI (urinary tract infection) N30.00 Hematuria presence: without hematuria Urinary tract infection type: acute cystitis Atrial fibrillation I48.91 CAD (coronary artery disease) I25.10 On anticoagulant therapy Z79.01 COPD (chronic obstructive pulmonary disease) J44.9 COPD type: unspecified COPD Dyslipidemia E78.5 Diabetes mellitus E11.9 (1) UTI (urinary tract infection) Hematuria presence: without hematuria Urinary tract infection type: acute cystitis Qualified Code(s): N30.00 - Acute cystitis without hematuria (2) COPD (chronic obstructive pulmonary disease) COPD type: unspecified COPD Qualified Code(s): J44.9 - Chronic obstructive pulmonary disease, unspecified
[2020-06-13] MEDS: LOVASTATIN 20 MG TAB PO SCH (21:44)
[2020-06-13] MEDS: GABAPENTIN 300 MG CAP PO SCH (21:44)
[2020-06-13] MEDS: GABAPENTIN 400 MG CAP PO SCH (21:44)
[2020-06-14 06:38] LABS: Basophils # (auto) 0.01 K/uL (0-0.2); Basophils % (auto) 0.2 %; Eosinophils # (auto) 0.33 K/uL (0-0.5); Eosinophils % (auto) 5.6 %; Hematocrit (blood only) 30.7 % (37-47); Hemoglobin 9.2 g/dL (12.0-16.0); Immature Granulocytes # (auto) 0.01 K/uL (0.00-0.02); Immature Granulocytes % (auto) 0.2 %; Lymphocytes # (auto) 2.13 K/uL (1.2-3.4); Lymphocytes % (auto) 36.2 %; Mean Corpuscular Hemoglobin 25.7 pg (25-34); Mean Corpuscular Volume 85.8 fL (80-100); Mean Platelet Volume 11.4 fL (7.4-10.4); Monocytes # (auto) 0.37 K/uL (0.11-0.59); Monocytes % (auto) 6.3 %; Neutrophils # (auto) 3.03 K/uL (1.4-6.5); Neutrophils % (auto) 51.5 %; Platelet Count 156 K/uL (130-400); RDW Coefficient of Variation 18.1 % (11.5-14.5); RDW Standard Deviation 56.6 fL (36.4-46.3); Red Blood Count 3.58 M/uL (4.2-5.4); White Blood Count 5.88 K/uL (4.8-10.8)
[2020-06-14 07:00] LABS: Albumin Globulin Ratio 0.9 (0.9-2); Albumin Level 3.6 gm/dl (3.4-5.0); Bilirubin,Total 0.5 mg/dl (0.2-1); Calcium 9.1 mg/dl (8.5-10.1); Creatinine Clr Calc Pharmacy 26.9 ml/min; Est GFR (African American) 54.7; Est GFR (Non-African American) 47.2; Globulin 4.1 gm/dl (2.5-4.0); Magnesium 2.1 mg/dl (1.8-2.4); Potassium 4.1 mmol/L (3.5-5.1); Total Protein 7.7 gm/dl (6.4-8.2)
[2020-06-14 07:01] LABS: Troponin I 0.026 ng/ml (0-0.045)
[2020-06-14] MEDS: AMPICILLIN/SULBACTAM SOD 1,500 MG in 0.9 % SODIUM CHLORIDE 100 ML IV SCH (09:05)
[2020-06-14] MEDS: VALSARTAN 80 MG TAB PO SCH (09:06)
[2020-06-14] MEDS: APIXABAN 2.5 MG TAB PO SCH (09:06)
[2020-06-14] MEDS: PANTOprazole 40 MG TAB PO SCH (09:08)
[2020-06-14] MEDS: SERTRALINE HCL 50 MG TABLET PO SCH (09:08)
[2020-06-14] MEDS: CALCIUM 600MG + VIT D 400 IU TAB PO SCH (09:08)
[2020-06-14] MEDS: ASPIRIN 81 MG ECTAB PO SCH (09:08)
[2020-06-14] MEDS: FUROSEMIDE 40 MG in SYRINGE 0 ML IV SCH (09:09)
[2020-06-14] MEDS: carvediloL 12.5 MG TAB PO SCH (09:09)
[2020-06-14] MEDS: INSULIN GLARGINE SOLOSTAR 100 UNITS/ML 3 ML PEN SQ SCH (09:09)
[2020-06-14] MEDS: NEOMYCIN/POLYMYXIN/DEXAMETHA OP OINT 3.5 GM TUBE OP SCH (09:10)
[2020-06-14] MEDS: POTASSIUM CHLORIDE CRTAB 20 MEQ TABCR PO SCH (09:11)
--- NOTE | 2020-06-14 10:37 | Discharge Summary ---
Date of Service June 14, 2020 Admission HPI Per Admitting Provider The patient is 85-year-old female with a past medical history including recurrent urinary tract infection, anemia, atrial fibrillation on long-term anticoagulation with Eliquis, carpal tunnel syndrome bilaterally, pubic ramus fracture, ambulatory dysfunction, diabetes mellitus type 2, CKD stage III, hypertension, depression, vitamin D deficiency, secondary hyperparathyroidism, COPD, combined systolic and diastolic CHF, cardiomyopathy, cardiac pacemaker, CAD, insomnia, dyslipidemia, diabetic peripheral neuropathy and history of complete atrioventricular block. She has been treated with antibiotics for urinary tract infection in the outpatient setting, but due to persistent symptoms, has presented to the ED for assessment. The patient has also had worsening shortness of breath over the past several days, as noted by the patient herself and by her family. Admission Exam Per Admitting Provider The patient is awake, alert and oriented 3, well developed and well nourished, normocephalic and atraumatic, lying in bed and in no acute distress. HEENT--PERRL, EOMI, mucous membranes and oropharynx normal. Neck--supple. No JVD. No bruits. Thyroid normal, trachea midline, no adenopathy. Heart--normal S1 and S2. No murmurs, rubs or gallops. Lungs--crackles at the bases bilaterally. Mild respiratory distress, no accessory muscle use. Abdomen--normal bowel sounds and soft. Nontender. Nondistended, no hernias or masses, no organomegaly. Extremities--no cyanosis or clubbing. 1+ bilateral pretibial pitting edema. Dermatologic--normal skin turgor, normal color, no abnormal lymph nodes, no rash. Neurologic--cranial nerves II through XII grossly intact. Rheumatologic--normal range of motion. Psychiatric--normal affect. Principal Diagnosis 1. Acute urinary tract infection with E. coli sensitive to penicillins 2. Chronic combined CHF without acute component 3. Rate controlled atrial fibrillation on Eliquis 4. CAD 5. COPD 6. Dyslipidemia 7. Diabetes mellitus 8. ambulatory dysfunction Discharge Exam Constitutional WD/WN, vitals as above no acute distress Neck trachea midline, no thyromegaly Respiratory normal respiratory effort, lungs clear to auscultation normal respiratory effort Auscultation: lungs clear to auscultation bilaterally Cardiovascular RRR, no murmur, no edema Vessels: + JVD Extremities: + edema (trace) Gastrointestinal (Abdomen) normal bowel sounds, soft, nontender, no hepatosplenomegaly Musculoskeletal no cyanosis or clubbing, extremities motor strength 5/5 Skin no rashes, warm and dry Discharge Data Allergies Allergy/AdvReac Type Severity Reaction Status Date / Time tamsulosin Allergy Severe SHORTNESS Verified 06/12/20 16:42 OF BREATH butalbital Allergy Intermediate SHORTNESS Verified 06/12/20 16:42 OF BREATH nitrofurantoin Allergy Unknown Unknown Verified 06/12/20 16:42 [From Macrobid] Cephalosporins AdvReac Severe TONGUE Verified 06/12/20 16:42 SWELLING WITH KEFLEX- tolerating keflex 03/16/20 levetiracetam AdvReac Intermediate RASH Verified 06/12/20 16:42 morphine AdvReac Intermediate hallucinati Verified 06/12/20 16:42 ons Sulfa (Sulfonamide AdvReac Unknown "SULFA Verified 06/12/20 16:42 Antibiotics) DRUGS" - UNKNOWN Consultations 06/12/20 19:51 ED Decision to Admit Stat Ordered Studies 06/12/20 15:45 CT abd pelvis IV con only Stat Hospital Course (1) Chronic combined systolic and diastolic CHF (congestive heart failure): Acute on chronic combined systolic and diastolic CHF/atrial fibrillation/CAD/hypertension- Patient appeared to be stable from this perspective. She remains on Lasix 40 mg IV daily. Renal function remained stable. Patient is on 3 L chronically without change. On discharge, she will be changed back to her usual dosing of 20 mg daily. (2) UTI (urinary tract infection): Patient initially presented with dysuria. Urinalysis positive. Urine culture showed E. coli that was sensitive to penicillins. Patient was continued on Unasyn, will exchange administrator to Augmentin to finish a full 7-day course. Of note, patient has had multiple urinary tract infections in the recent past, each with a different organism. Would consider outpatient neurology evaluation for possible further work-up if desired. (3) Atrial fibrillation: Rate controlled, on Eliquis (4) CAD (coronary artery disease): See above (5) On anticoagulant therapy: See above (6) COPD (chronic obstructive pulmonary disease): Continue Combivent (7) Dyslipidemia: Continue lovastatin (8) Diabetes mellitus: Return to previous dosing of insulin as per outpatient. Last hemoglobin A1c was on 03/17, found to be 6.9. Will continue following up with primary care physician. Total Time Total Time Spent Total Time Spent (In Minutes): 38 Discharge Plan Discharge Items Patient Disposition: Home - Home Health Services Reason For Visit: CHF EXACERBATION, UTI Discharge Diagnosis: 1. Chronic combined CHF 2. Urinary tract infection with E. coli, sensitive to penicillins 3. Chronic atrial fibrillation, rate controlled 4. Coronary artery disease 5. COPD by history 6. Dyslipidemia 7. Diabetes mellitus 8. Ambulatory dysfunction Condition on Discharge: Good Activity: Resume your previous activity Activity Comment: Ambulates slowly with walker as instructed Lifting: Gradually increase as tolerated Weightbearing: Full weightbearing Non-emergency contact: Primary Care Provider Call non-emergency contact if: you have any medication questions, your symptoms worsen and you have a fever Follow-up/Referrals: Crystal Mcguire CRNP [Primary Care Provider] - Diet: Carb Consistent or DM2 Diet Texture: Easy to Chew Addtl Attending Provider Instructions: None Pending Studies at Discharge: No Stand-Alone Forms: My [facility] [employer], Smoking Cessation Medications and DC Order Prescriptions: New amoxicillin-pot clavulanate [Augmentin] 875-125 mg tablet 1 tab PO BID Qty: 12 RF: 0 Continued Combivent Respimat 20-100 mcg/actuation Mist 1 puff INHALATION QID PRN (Reason: Wheezing) Qty: 0 RF: 0 valsartan 40 mg tablet 40 mg PO BID Qty: 180 RF: 3 carvedilol 12.5 mg tablet 12.5 mg PO BID Qty: 60 RF: 8 furosemide 20 mg tablet 20 mg PO QAM Qty: 30 RF: 8 gabapentin [Neurontin] 400 mg capsule 400 mg PO HS Qty: 30 RF: 8 ipratropium-albuterol 0.5 mg-3 mg(2.5 mg base)/3 mL solution for nebulization 3 ml INHALATION Q4H PRN (Reason: Wheezing) Qty: 180 RF: 8 sertraline 50 mg tablet 50 mg PO DAILY Qty: 30 RF: 5 pantoprazole 40 mg tablet,delayed release (DR/EC) 40 mg PO DAILY Qty: 90 RF: 3 lovastatin 40 mg tablet 40 mg PO HS Qty: 90 RF: 3 gabapentin [Neurontin] 300 mg capsule 300 mg PO HS Qty: 90 RF: 3 Eliquis 2.5 mg tablet 2.5 mg PO BID Qty: 60 RF: 10 calcium carbonate-vitamin D3 [Os-Emile 500 + D3] 500 mg(1,250mg) -200 unit tablet 1 tab PO DAILY Qty: 0 RF: 0 neomycin-polymyxin B-dexameth 3.5 mg/g-10,000 unit/g-0.1 % ointment 1 applic ophthalmic (eye) TID Qty: 3.5 RF: 0 (DME) portable O2 concentrator See Rx Instructions .Route .MEDSUPPLY Qty: 1 RF: 0 aspirin 81 mg Tablet,Delayed Release (Dr/Ec) 81 mg PO QAM RF: 0 Lantus Solostar U-100 Insulin 100 unit/mL (3 mL) insulin pen 15 unit SQ QAM RF: 0 calcitriol 0.25 mcg capsule 0.25 mcg PO 3XWK RF: 0 Discontinued amoxicillin 500 mg capsule 500 mg PO BID Qty: 14 RF: 0 Discharge Orders: Discharge Order (Routine); Ordered 06/14/20 Ordered By: Aakash Diaz Admission Data Admit Date/Time: 06/12/20 21:21 Attending Provider: Aakash Diaz Admit Provider: [place] Primary Care Provider: Crystal Mcguire Other Providers: [place] Other Interventions: Discharge Summary Assessment (RN) Last Done: 06/13/20 10:19 Coding Level of Care Code D/C Day Management >30 mins Diagnoses Chronic combined systolic and diastolic CHF (congestive heart failure) I50.42 UTI (urinary tract infection) N30.00 Hematuria presence: without hematuria Urinary tract infection type: acute cystitis Atrial fibrillation I48.91 CAD (coronary artery disease) I25.10 On anticoagulant therapy Z79.01 COPD (chronic obstructive pulmonary disease) J44.9 COPD type: unspecified COPD Dyslipidemia E78.5 Diabetes mellitus E11.9 Time Spent (min) 38
[2020-06-15] MEDS ORDERED: CALCITRIOL 0.25 MCG CAPSULE PO SCH (09:00)
== END 2020-06-14 12:45 | disposition home or self-care (01) | DRG 690 ==
LOC: ED 14:11 → SUATTDRO 21:21 → 2S 21:21

== ENCOUNTER 2020-08-10 13:35 | Inpatient (IN) ==
[2020-08-10 14:56] LABS: Basophils # (auto) 0.01 K/uL (0-0.2); Basophils % (auto) 0.1 %; Eosinophils # (auto) 0.05 K/uL (0-0.5); Eosinophils % (auto) 0.7 %; Hematocrit (blood only) 31.1 % (37-47); Hemoglobin 9.5 g/dL (12.0-16.0); Immature Granulocytes # (auto) 0.01 K/uL (0.00-0.02); Immature Granulocytes % (auto) 0.1 %; Lymphocytes # (auto) 1.74 K/uL (1.2-3.4); Lymphocytes % (auto) 24.2 %; Mean Corpuscular Hemoglobin 25.5 pg (25-34); Mean Corpuscular Hgb Conc 30.5 g/dL (32-36); Mean Corpuscular Volume 83.4 fL (80-100); Mean Platelet Volume 10.7 fL (7.4-10.4); Monocytes # (auto) 0.32 K/uL (0.11-0.59); Monocytes % (auto) 4.4 %; Neutrophils # (auto) 5.07 K/uL (1.4-6.5); Neutrophils % (auto) 70.5 %; Platelet Count 193 K/uL (130-400); RDW Coefficient of Variation 17.9 % (11.5-14.5); RDW Standard Deviation 55.2 fL (36.4-46.3); Red Blood Count 3.73 M/uL (4.2-5.4)
[2020-08-10 15:01] LABS: Appearance Urine Clear (Clear); Bilirubin Urine Negative (Negative); Blood Urine Negative (Negative); Color Urine Yellow; Glucose Urine UA Negative (Negative); Ketones Urine Negative (Negative); Leukocyte Esterase Urine Negative (Negative); Nitrite Urine Negative (Negative); Protein Urine Negative (Negative); Specific Gravity Urine 1.005 (1.000-1.030); Urobilinogen Urine Negative (Negative); pH Urine 8.5 (4.5-7.5)
[2020-08-10 15:13] LABS: BUN Creatinine Ratio 13.1 (10-20); Calcium 9.4 mg/dl (8.5-10.1); Creatinine Clr Calc Pharmacy 26.9 ml/min; Est GFR (African American) 54.7 ml/min; Est GFR (Non-African American) 47.2 ml/min; Potassium 3.9 mmol/L (3.5-5.1)
--- NOTE | 2020-08-10 15:14 | XRay Report ---
SINGLE VIEW CHEST CLINICAL HISTORY: Atypical chest pain. FINDINGS: An AP, portable, upright chest radiograph is compared to study dated 07/03/2020. The examina tion is degraded by portable technique and patient rotation. The patient is status post midline espino otomy and cardiac valve surgery. A 2-lead cardiac pacemaker is unchanged in position and partially ob scures the left mid chest. The heart is enlarged noting atherosclerotic calcification of the thoracic aorta. There is pulmonary vascular congestion. Epicardial pacing leads are noted. There are bilatera l pleural effusions, right larger than left with associated atelectasis. No pneumothorax is seen. The skeletal structures are osteopenic. The bony thorax is grossly intact. IMPRESSION: 1. Cardiomegaly and cardiac pacemaker with evidence of congestive failure. 2. Right larger than left pleural effusions with bibasilar atelectasis ACT 112: Negative or not required by law. Electronically signed by: Christos Ochoa M.D. 08/10/2020 3:12 PM
[2020-08-10 15:25] LABS: Troponin I 0.053 ng/ml (0-0.045)
[2020-08-10] MEDS ORDERED: FUROSEMIDE 40 MG/4 ML VIAL IV STA ×2 (15:48→21:30)
--- NOTE | 2020-08-10 16:03 | Emergency Department Note ---
History of Present Illness General Chief Complaint: Respiratory Problems Stated Complaint: SWELLING,HARD TO BREATHE,ABD PAIN Time Seen by Provider: 08/10/20 14:16 Source: patient and family (Son at bedside) History of Present Illness Provider Complaint: shortness of breath Onset (ago): hour(s) (2) Severity: moderate Relieved By: + oxygen and + upright position Exacerbated By: + exertion and + movement Known history of: COPD and congestive heart failure Associated symptoms: + orthopnea; no pain with inspiration, no fever, no cough, no wheezing, no sputum production, no lower extremity pain, no paresthesias, no hemoptysis, no diaphoresis, no nausea/vomiting, no syncope, no abdominal pain, no rash and no lightheadedness Treatment prior to arrival: oxygen HPI Narrative: Son reports they noticed that the patient's legs are swelling again so they gave her a double dose of her Lasix yesterday 40 mg. Related Data Home oxygen amount: 3 liters Home Medications Medication Instructions Recorded Confirmed Type Combivent Respimat 1 puff INHALATION QID PRN #0 05/08/14 07/24/20 History aspirin 81 mg PO QAM 10/01/18 07/24/20 History valsartan 40 mg tablet 40 mg PO BID #180 tab 10/16/19 07/24/20 Rx furosemide 20 mg tablet 20 mg PO QAM #30 tab 12/26/19 07/24/20 Rx gabapentin 400 mg capsule 400 mg PO HS #30 cap 12/26/19 07/24/20 Rx ipratropium 0.5 mg-albuterol 3 mg 3 ml INHALATION Q4H PRN #180 ml 12/26/19 07/24/20 Rx (2.5 mg base)/3 mL nebulization soln gabapentin 300 mg capsule 300 mg PO HS #90 cap 01/23/20 07/24/20 Rx lovastatin 40 mg tablet 40 mg PO HS #90 tab 01/23/20 07/24/20 Rx pantoprazole 40 mg tablet,delayed 40 mg PO DAILY #90 tab 01/23/20 07/24/20 Rx release neomycin 3.5 mg/g-polymyxin B 1 applic OPHTHALMIC (EYE) TID #3.5 03/06/20 07/24/20 Rx 10,000 unit/g-dexameth 0.1 % eye g oint apixaban 2.5 mg tablet 2.5 mg PO BID #60 tab 04/03/20 07/24/20 Rx calcium carbonate 500 mg (1,250 1 tab PO DAILY #0 tab 04/09/20 07/24/20 History mg)-vitamin D3 200 unit tablet Lantus Solostar U-100 Insulin 15 unit SQ QAM 06/04/20 07/24/20 History portable O2 concentrator #1 ea 06/18/20 07/24/20 Rx calcitriol 0.25 mcg capsule 0.25 mcg PO 3XWK #14 cap 06/26/20 07/24/20 Rx sertraline 50 mg tablet 50 mg PO DAILY #30 tab 06/26/20 07/24/20 Rx carvedilol 12.5 mg tablet 12.5 mg PO BID #60 tab 07/24/20 07/24/20 Rx nitroglycerin 0.4 mg sublingual 0.4 mg SUBLINGUAL Q5M PRN #20 tab 07/24/20 07/24/20 Rx tablet ranolazine 500 mg tablet,extended 500 mg PO BID #60 tab 07/24/20 07/24/20 Rx release,12 hr pen needle, diabetic 31 gauge x #100 ea 07/27/20 Rx 5/16" ciprofloxacin HCl 500 mg tablet 500 mg PO BID #14 tab 08/04/20 08/04/20 Rx Allergies Allergy/AdvReac Type Severity Reaction Status Date / Time tamsulosin Allergy Severe SHORTNESS Verified 08/10/20 16:06 OF BREATH butalbital Allergy Intermediate SHORTNESS Verified 08/10/20 16:06 OF BREATH nitrofurantoin Allergy Unknown Unknown Verified 08/10/20 16:06 [From Macrobid] Cephalosporins AdvReac Severe TONGUE Verified 08/10/20 16:06 SWELLING WITH KEFLEX- tolerating keflex 03/16/20 levetiracetam AdvReac Intermediate RASH Verified 08/10/20 16:06 morphine AdvReac Intermediate hallucinati Verified 08/10/20 16:06 ons Sulfa (Sulfonamide AdvReac Unknown "SULFA Verified 08/10/20 16:06 Antibiotics) DRUGS" - UNKNOWN Past Med/Surg History Medical History Abscess of hand, right Acute UTI (urinary tract infection) Allergy to multiple antibiotics Anemia Cardiac pacemaker for complete hear block Cellulitis of right hand Cerebellar infarct Chronic renal disease, stage III Depression Diabetes mellitus Extremity atherosclerosis with intermittent claudication Fracture of pubic ramus Gait instability History of chest pain Hypertension Lower abdominal pain Secondary hyperparathyroidism of renal origin Solitary pulmonary nodule Transient ischemic attack (TIA) Vitamin D deficiency Surgical History History of nasal surgery Hx of carpal tunnel repair Family History Other Family history non-contributory Social History Smoking Status: Former smoker Second Hand Exposure: No; Hx Alcohol Use: No Hx Substance Use: No Preferred Language: Albanian Communication Ability: Effective Visual Impairment: No Limitations 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 Beliefs That Will Affect Care: None marital status: / Current Living Situation: Alone Feels Safe at Home: Yes Assistive Devices: None Review of Systems A total of 10 systems reviewed and were otherwise negative Physical Exam Vital Signs: Vital Signs - 24 hr 08/10/20 13:51 08/10/20 14:25 08/10/20 14:28 Temperature 36.4 C L Temperature Source Oral Pulse Rate 65 72 71 Pulse Rate from Sp O2 Sensor 72 68 Respiratory Rate 18 20 14 Blood Pressure 168/75 H 179/72 H Blood Pressure Fiorella n 106 107 Pulse Oximetry 96 100 100 Oxygen Delivery Me thod Room Air Oxygen Flow Rate Sepsis Recent Feve r Within 48 Hours No Sepsis New/Unexpla ined Change in Men jake Status No Sepsis Action Take n by Nursing No Action Required 08/10/20 14:30 08/10/20 14:36 Temperature Temperature Source Pulse Rate 69 Pulse Rate from Sp O2 Sensor 67 Respiratory Rate 16 Blood Pressure Blood Pressure Fiorella n Pulse Oximetry 100 97 Oxygen Delivery Me thod Nasal Cannula Oxygen Flow Rate 3 Sepsis Recent Feve r Within 48 Hours Sepsis New/Unexpla ined Change in Men jake Status Sepsis Action Take n by Nursing Physical Exam: Physical Exam GENERAL: She is oriented to person, place, and time. She appears well-developed and well-nourished. She does not appear distressed. HENT: Exam performed. -Head: Normocephalic and atraumatic. -Right Ear: External ear normal. No mastoid tenderness. -Left Ear: External ear normal. No mastoid tenderness. -Mouth/Throat: The oropharynx is clear and moist. No trismus in the jaw. No dental abscesses or uvula swelling. No oropharyngeal exudate or tonsillar abscesses. EYES: Conjunctivae and EOM are normal. Pupils are equal, round, and reactive to light. Right eye exhibits no discharge. Left eye exhibits no discharge. No scleral icterus. NECK: Normal range of motion. Neck supple. No JVD present. No spinous process tenderness present. No carotid bruit present. No rigidity. No tracheal deviation and normal range of motion present. No Brudzinski's sign and no Kernig's sign noted. CV: Normal rate, regular rhythm, normal heart sounds and intact distal pulses. 1+ pitting edema bilateral lower extremities. Palpable radial pulses bue. PULM/CHEST: Diminished breath sounds bilaterally. ABD: The abdomen is soft. Bowel sounds are normal. She has no distension. No mass is present. There is no tenderness. There is no rebound, no guarding, no Churchill's sign and no tenderness at McBurney's point. Rovsig negative MUSC/SKEL: Normal range of motion. There is no tenderness or deformity. LYMPH: No cervical adenopathy. NEURO: She is alert and oriented to person, place, and time. She has normal strength. No cranial nerve deficit or sensory deficit. GCS eye subscore is 4. GCS verbal subscore is 5. GCS motor subscore is 6. Cerebellar tests wnl. SKIN: Skin is warm and dry. She is not diaphoretic. PSYCH: She has a normal mood and affect. Behavior is normal. Judgment and thought content normal. Course Course 1416: The patient was evaluated in room B7. A complete history and physical exam was performed Cardiac monitoring: An order was placed for continuous cardiac monitoring. The monitor shows a rate of 70 with paced rhythm EMR reviewed. Patient has a dry weight of 112 pounds and a trigger weight of 115 pounds per the cardiology note to increase her Lasix dosage. 1607: Vital signs stable on her normal oxygen via nasal cannula. Labs are within normal limits with exception of elevated proBNP of 7325 and troponin of 0.053. Chest x-ray shows cardiomegaly with cephalization. I discussed the findings with the patient and son at bedside and we both agree that the patient she would benefit from inpatient hospital stay for diuresis. Patient was given Lasix 40 mg IV push. Discussed the case with Dr. Te[place] [facility] [place] evaluate the patient. Medical Decision Making Laboratory Data Result diagrams: 08/10/20 14:31 08/10/20 14:31 Lab Results 08/10/20 08/10/20 08/10/20 Range/Units 14:31 14:31 14:44 WBC 7.20 (4.8-10.8) K/uL RBC 3.73 L (4.2-5.4) M/uL Hgb 9.5 L (12.0-16.0) g/dL Hct 31.1 L (37-47) % MCV 83.4 (80-100) fL MCH 25.5 (25-34) pg MCHC 30.5 L (32-36) g/dL RDW Std Deviation 55.2 H (36.4-46.3) fL RDW Coeff of Carlos 17.9 H (11.5-14.5) % Plt Count 193 (130-400) K/uL MPV 10.7 H (7.4-10.4) fL Immature Gran % (Auto) 0.1 % Neut % (Auto) 70.5 % Lymph % (Auto) 24.2 % Prentiss % (Auto) 4.4 % Eos % (Auto) 0.7 % Baso % (Auto) 0.1 % Neut # (Auto) 5.07 (1.4-6.5) K/uL Lymph # (Auto) 1.74 (1.2-3.4) K/uL Prentiss # (Auto) 0.32 (0.11-0.59) K/uL Eos # (Auto) 0.05 (0-0.5) K/uL Baso # (Auto) 0.01 (0-0.2) K/uL Immature Gran # (Auto) 0.01 (0.00-0.02) K/uL Sodium 137 (136-145) mmol/L Potassium 3.9 (3.5-5.1) mmol/L Chloride 100 (98-107) mmol/L Carbon Dioxide 36 H (21-32) mmol/L Anion Gap 1.0 L (3-11) BUN 14 (7-18) mg/dl Creatinine 1.06 (0.6-1.2) mg/dl Est Cr Clr Drug Dosing 26.9 ml/min Est GFR ( Amer) 54.7 ml/min Est GFR (Non-Af Amer) 47.2 ml/min BUN/Creatinine Ratio 13.1 (10-20) Glucose 109 H (70-99) mg/dl Calcium 9.4 (8.5-10.1) mg/dl Magnesium 2.0 (1.8-2.4) mg/dl Troponin I 0.053 H* (0-0.045) ng/ml NT-Pro-B Natriuret Pep 7325 H (0-1800) pg/ml Urine Color Yellow Urine Appearance Clear (Clear) Urine pH 8.5 H (4.5-7.5) Ur Specific [place] 1.005 (1.000-1.030) Urine Protein Negative (Negative) Urine Glucose (UA) Negative (Negative) Urine Ketones Negative (Negative) Urine Blood Negative (Negative) Urine Nitrite Negative (Negative) Urine Bilirubin Negative (Negative) Urine Urobilinogen Negative (Negative) Ur Leukocyte Esterase Negative (Negative) Imaging Data Radiologist's Impression: Chest X-Ray 08/10/20 14:18 SINGLE VIEW CHEST CLINICAL HISTORY: Atypical chest pain. FINDINGS: An AP, portable, upright chest radiograph is compared to study dated 07/03/2020. The examination is degraded by portable technique and patient rotation. The patient is status post midline sternotomy and cardiac valve surgery. A 2-lead cardiac pacemaker is unchanged in position and partially obscures the left mid chest. The heart is enlarged noting atherosclerotic calcification of the thoracic aorta. There is pulmonary vascular congestion. Epicardial pacing leads are noted. There are bilateral pleural effusions, right larger than left with associated atelectasis. No pneumothorax is seen. The skeletal structures are osteopenic. The bony thorax is grossly intact. IMPRESSION: 1. Cardiomegaly and cardiac pacemaker with evidence of congestive failure. 2. Right larger than left pleural effusions with bibasilar atelectasis ACT 112: Negative or not required by law. Electronically signed by: Christos Ochoa M.D. 08/10/2020 3:12 PM ECG Data Interpretation: Paced rhythm with a rate of 69. MS 174 QRS [address] elevation or ST depression. [facility] Narrative 1416: The patient was evaluated in room B7. A complete history and physical exam was performed Cardiac monitoring: An order was placed for continuous cardiac monitoring. The monitor shows a rate of 70 with paced rhythm EMR reviewed. Patient has a dry weight of 112 pounds and a trigger weight of 115 pounds per the cardiology note to increase her Lasix dosage. 1607: Vital signs stable on her normal oxygen via nasal cannula. Labs are within normal limits with exception of elevated proBNP of 7325 and troponin of 0.053. Chest x-ray shows cardiomegaly with cephalization. I discussed the findings with the patient and son at bedside and we both agree that the patient she would benefit from inpatient hospital stay for diuresis. Patient was given Lasix 40 mg IV push. Discussed the case with Dr. Ho CAMACHO hospitalist will evaluate the patient. Impression & Plan Acute exacerbation of CHF (congestive heart failure) Discharge Plan Visit Data Chief Complaint: Respiratory Problems Stated Complaint: SWELLING,HARD TO BREATHE,ABD PAIN ED Provider: Cayden Dunaway Discharge Problem: Acute exacerbation of CHF (congestive heart failure) Patient Disposition: Being Evaluated by Hospitalist Forms Stand Alone Forms: My [facility] [place] Prescriptions Prescriptions: No Action Combivent Respimat 20-100 mcg/actuation Mist 1 puff INHALATION QID PRN (Reason: Wheezing) Qty: 0 RF: 0 valsartan 40 mg tablet 40 mg PO BID Qty: 180 RF: 3 furosemide 20 mg tablet 20 mg PO QAM Qty: 30 RF: 8 gabapentin [Neurontin] 400 mg capsule 400 mg PO HS Qty: 30 RF: 8 ipratropium-albuterol 0.5 mg-3 mg(2.5 mg base)/3 mL solution for nebulization 3 ml INHALATION Q4H PRN (Reason: Wheezing) Qty: 180 RF: 8 pantoprazole 40 mg tablet,delayed release (DR/EC) 40 mg PO DAILY Qty: 90 RF: 3 lovastatin 40 mg tablet 40 mg PO HS Qty: 90 RF: 3 gabapentin [Neurontin] 300 mg capsule 300 mg PO HS Qty: 90 RF: 3 Eliquis 2.5 mg tablet 2.5 mg PO BID Qty: 60 RF: 10 calcium carbonate-vitamin D3 [Os-Emile 500 + D3] 500 mg(1,250mg) -200 unit tablet 1 tab PO DAILY Qty: 0 RF: 0 (DME) portable O2 concentrator See Rx Instructions .Route .MEDSUPPLY Qty: 1 RF: 0 sertraline 50 mg tablet 50 mg PO DAILY Qty: 30 RF: 5 calcitriol 0.25 mcg capsule 0.25 mcg PO 3XWK Qty: 14 RF: 0 (DME) pen needle, diabetic [1st Tier Unifine Pentips] 31 gauge x 5/16" needle See Rx Instructions .ROUTE .MEDSUPPLY Qty: 100 RF: 4 carvedilol 12.5 mg tablet 12.5 mg PO BID Qty: 60 RF: 2 ranolazine 500 mg tablet extended release 12 hr 500 mg PO BID Qty: 60 RF: 2 nitroglycerin 0.4 mg tablet, sublingual 0.4 mg sublingual Q5M PRN (Reason: chest pain) Qty: 20 RF: 2 neomycin-polymyxin B-dexameth 3.5 mg/g-10,000 unit/g-0.1 % ointment 1 applic ophthalmic (eye) TID Qty: 3.5 RF: 0 ciprofloxacin HCl [Cipro] 500 mg tablet 500 mg PO BID Qty: 14 RF: 0 aspirin 81 mg Tablet,Delayed Release (Dr/Ec) 81 mg PO QAM RF: 0 Lantus Solostar U-100 Insulin 100 unit/mL (3 mL) insulin pen 15 unit SQ QAM RF: 0 Referrals Referrals: Crystal Mcguire CRNP [Primary Care Provider] - Discharge Problem: Acute exacerbation of CHF (congestive heart failure) Qualifiers: Heart failure type: unspecified Qualified Code(s): I50.9 - Heart failure, unspecified
--- NOTE | 2020-08-10 18:17 | History & Physical Report ---
Date of Service August 10, 2020 Assessment & Plan (1) Acute exacerbation of CHF (congestive heart failure): Multifactorial with dietary indiscretion and missed medication doses - Lasix 20mg IV tonight x1 and then re-evaluate in the morning- Already received 40mg IV in ER with good response - Continue ARB - Continue Carvedilol as symptoms are improving at this time - Continue ASA (2) Chronic combined systolic and diastolic CHF (congestive heart failure): As above, acute on chronic combined systolic and diastolic CHF (3) Paroxysmal atrial fibrillation: Continue Eliquis 2.5mg PO BID - Currently in NSR - pacemaker AAIR with mode switch to DDDR -Continue carvedilol (4) Vitamin D deficiency: Hold Vitamin D for now (5) COPD (chronic obstructive pulmonary disease): This does not appear to be COPD exacerbation at this time - Continue nebulizers - oxygen therapy as needed for SPO2 >88% (6) Diabetes mellitus: Continue Lantus 15units at night -NovoLog sliding scale with meals and at bedtime -Check hemoglobin A1c in the morning, previous was 6.9% in 03/2020 - hypoglycemia protocol ordered - BG AC/HS (7) Dyslipidemia: Continue Lovastatin 40 mg daily (8) Secondary hyperparathyroidism of renal origin: Hold her Calcitriol and vitamin D until her volume status is corrected - calcium 9.4 (9) CAD (coronary artery disease): With stable angina, history of CABG - Continue recently started Ranexa and NTG PRN - Trend troponin I (10) Anemia: Likely secondary to chronic disease Check iron studies in the morning (11) CKD (chronic kidney disease), stage III: Follow volume status overnight - diurese again if needed- no acute needs at this time DVT prophylaxis-apixaban Disposition-admit on observation to medical floor History of Present Illness Primary Care Provider: DAVID Palmer 85 YOF with past medical history of: DM(on Lantus), COPD, Afib, combined HF, AV block with pacemaker, anemia, Afib, CAD with ICM, CABG(22010), Vitamin D deficiency, secondary hyperparathyroidism, CKD III, chronic abdominal pain. Patient comes in to the emergency room for 1 week history of increase in dyspnea and weights at home, normally controlled with increasing her daily Lasix dose to 40mg for a brief period. This was done last week by her PCP. She had a tried again over the weekend with increase of Lasix 40mg PO, with no change in her dyspnea. She reports that she had to sit up throughout the night to catch her breath. Her son accompanies her and reports that has been forgetting to use her nebulizers at home and was able to get her to catch her breath over the weekend with her nebulizers, but also noticed that some of her Lasix pills were on the ground. Son also reports some likely dietary indiscretion over the weekend as well. The patient denies any fevers or chills, or increase in sputum production. She recently followed up with cardiology and endorsed to them some episodes of angina, and was started on a trial of ranolazine 500mg BID and sublingual NTG PRN. The patient states that she hasn't been experiencing any of those symptoms leading up to her admission. She does have an elevated BNP and CXR with increase in vascular congestion and right sided pleural effusion. She was given 40mg IV Lasix in the EMD and is responding, she also states that her breathing is improved. We will observe her overnight, administer 1 20mg Lasix in the evening and trend her troponin I as this was mildly elevated at 0.053. Allergies Allergy/AdvReac Type Severity Reaction Status Date / Time tamsulosin Allergy Severe SHORTNESS Verified 08/10/20 16:06 OF BREATH butalbital Allergy Intermediate SHORTNESS Verified 08/10/20 16:06 OF BREATH nitrofurantoin Allergy Unknown Unknown Verified 08/10/20 16:06 [From Macrobid] Cephalosporins AdvReac Severe TONGUE Verified 08/10/20 16:06 SWELLING WITH KEFLEX- tolerating keflex 03/16/20 levetiracetam AdvReac Intermediate RASH Verified 08/10/20 16:06 morphine AdvReac Intermediate hallucinati Verified 08/10/20 16:06 ons Sulfa (Sulfonamide AdvReac Unknown "SULFA Verified 08/10/20 16:06 Antibiotics) DRUGS" - UNKNOWN Home Medications Medication Instructions Recorded Confirmed Type Combivent Respimat 1 puff INHALATION QID PRN #0 05/08/14 08/10/20 History aspirin 81 mg PO QAM 10/01/18 08/10/20 History valsartan 40 mg tablet 40 mg PO BID #180 tab 10/16/19 08/10/20 Rx furosemide 20 mg tablet 20 mg PO QAM #30 tab 12/26/19 08/10/20 Rx gabapentin 400 mg capsule 400 mg PO HS #30 cap 12/26/19 08/10/20 Rx ipratropium 0.5 mg-albuterol 3 mg 3 ml INHALATION Q4H PRN #180 ml 12/26/19 08/10/20 Rx (2.5 mg base)/3 mL nebulization soln lovastatin 40 mg tablet 40 mg PO HS #90 tab 01/23/20 08/10/20 Rx apixaban 2.5 mg tablet 2.5 mg PO BID #60 tab 04/03/20 08/10/20 Rx calcium carbonate 500 mg (1,250 1 tab PO QAM #0 tab 04/09/20 08/10/20 History mg)-vitamin D3 200 unit tablet Lantus Solostar U-100 Insulin 15 unit SQ HS 06/04/20 08/10/20 History portable O2 concentrator #1 ea 06/18/20 07/24/20 Rx calcitriol 0.25 mcg capsule 0.25 mcg PO 3XWK #14 cap 06/26/20 08/10/20 Rx carvedilol 12.5 mg tablet 12.5 mg PO BID #60 tab 07/24/20 08/10/20 Rx nitroglycerin 0.4 mg sublingual 0.4 mg SUBLINGUAL Q5M PRN #20 tab 07/24/20 08/10/20 Rx tablet ranolazine 500 mg tablet,extended 500 mg PO BID #60 tab 07/24/20 08/10/20 Rx release,12 hr pen needle, diabetic 31 gauge x #100 ea 07/27/20 Rx 06/28" gabapentin 300 mg PO HS 08/10/20 08/10/20 History pantoprazole 40 mg PO QAM 08/10/20 08/10/20 History sertraline 50 mg PO QAM 08/10/20 08/10/20 History Past Med/Surg History Medical History Abscess of hand, right Acute UTI (urinary tract infection) Allergy to multiple antibiotics Anemia Cardiac pacemaker for complete hear block Cellulitis of right hand Cerebellar infarct Chronic renal disease, stage III Depression Diabetes mellitus Extremity atherosclerosis with intermittent claudication Fracture of pubic ramus Gait instability History of chest pain Hypertension Lower abdominal pain Secondary hyperparathyroidism of renal origin Solitary pulmonary nodule Transient ischemic attack (TIA) Vitamin D deficiency Surgical History History of nasal surgery Hx of carpal tunnel repair Family History Other Family history non-contributory Social History Smoking Status: Former smoker Second Hand Exposure: No; Hx Alcohol Use: No Hx Substance Use: No Preferred Language: Turkish Communication Ability: Effective Visual Impairment: No Limitations Law Enforcement Instructor Required: No Beliefs That Will Affect Care: None marital status: / Current Living Situation: Alone Feels Safe at Home: Yes Assistive Devices: None Review of Systems Review of Systems: REVIEW OF SYSTEMS: Constitutional: No fever, sweats or chills Eyes: No diplopia, no worsening or blurred vision ENT: normal hearing, no trouble swallowing Respiratory: (+) dyspnea at rest or on exertion, NO cough, sputum, Cardiovascular: No chest pain, tightness or palpitations Abdomen: (+) fullness, No pain, nausea, vomiting, diarrhea or constipation Musculoskeletal: (+) joint pain, calf pain, swelling Neurologic: No weakness, numbness/tingling, or balance problems Psychiatric: No anxiety or depression Skin: No rash or itch Physical Exam Physical Exam: PHYSICAL EXAM: General: awake, alert, no apparent distress Head: Normocephalic, atraumatic ENT: PERRL, EOMI, no pharyngeal exudate, mucous membranes moist Neuro: AAO x 3, speech clear and appropriate, strength intact bilaterally 5/5, sensation intact and equal all extremities and dermatomes, no pronator drift Chest: equal rise and fall of the chest, no accessory muscle use, no heaves or thrills, scattered crackles bilaterally decreased right base, transitioned to room-air Cardiac: Regular rate and rhythm, telemetry reviewed, skin warm dry, cap refill <3 seconds, peripheral pulses +2 no JVD, no murmur, no JVD, 1+ to lower extremity edema GI: NABS x 4 quadrants, soft, nontender to palpation, no rebound, guarding or tenderness : Spontaneously voiding, no pain, no CVA tenderness, Extremities: Normal inspection, no peripheral edema or erythema, calfs nontender to palpation Psych: Normal mood and affect Skin: no rash or erythema Results & Data Results & Data ([facility]) Vital Signs (Past 12 Hours) Vital Signs Temp Pulse Resp BP Pulse Ox 08/10/20 14:36 97 08/10/20 14:30 69 16 100 08/10/20 14:28 71 14 100 08/10/20 14:25 72 20 179/72 H 100 08/10/20 13:51 36.4 C L 65 18 168/75 H 96 Laboratory Results Abnormal lab results 08/10/20 08/10/20 08/10/20 Range/Units 14:31 14:31 14:44 RBC 3.73 L (4.2-5.4) M/uL Hgb 9.5 L (12.0-16.0) g/dL Hct 31.1 L (37-47) % MCHC 30.5 L (32-36) g/dL RDW Std Deviation 55.2 H (36.4-46.3) fL RDW Coeff of Carlos 17.9 H (11.5-14.5) % MPV 10.7 H (7.4-10.4) fL Carbon Dioxide 36 H (21-32) mmol/L Anion Gap 1.0 L (3-11) Glucose 109 H (70-99) mg/dl Troponin I 0.053 H* (0-0.045) ng/ml NT-Pro-B Natriuret Pep 7325 H (0-1800) pg/ml Urine pH 8.5 H (4.5-7.5) Diagnostic Findings Discontinued Medications Furosemide (Furosemide 40 Mg/4 Ml Vial) 40 mg IV NOW STA Stop: 08/10/20 15:49 Last Admin: 08/10/20 16:11 Dose: 40 mg Documented by: [id number] Medications Administered Chest X-Ray 08/10/20 14:18 SINGLE VIEW CHEST CLINICAL HISTORY: Atypical chest pain. FINDINGS: An AP, portable, upright chest radiograph is compared to study dated 07/03/2020. The examination is degraded by portable technique and patient rotation. The patient is status post midline sternotomy and cardiac valve surgery. A 2-lead cardiac pacemaker is unchanged in position and partially obscures the left mid chest. The heart is enlarged noting atherosclerotic calcification of the thoracic aorta. There is pulmonary vascular congestion. Epicardial pacing leads are noted. There are bilateral pleural effusions, right larger than left with associated atelectasis. No pneumothorax is seen. The skeletal structures are osteopenic. The bony thorax is grossly intact. IMPRESSION: 1. Cardiomegaly and cardiac pacemaker with evidence of congestive failure. 2. Right larger than left pleural effusions with bibasilar atelectasis Electronically signed by: Christos Ochoa M.D. 08/10/2020 3:12 PM ECG Additional Comments: Atrial-sensed ventricular-paced rhythm Abnormal ECG When compared with ECG of 16-MAR-2020 18:40, Electronic ventricular pacemaker has replaced Sinus rhythm Code Status & VTE Plan Code Status CODE: DNR/DNI VTE: SCDs, Eliquis Supervising Physician Co-Signing Physician Notes Is a nasalCRNP Supervision note: I have personally seen and examined the patient and discussed and verified the godinez points of the history and physical along with the plan with DAVID Negron with the following exceptions and/or additions: 85-year-old female who presents to the ER with increasing shortness of breath, lower extremity edema, orthopnea. She doubled her p.o. Lasix at home but this was not helping. In the ER, she was found to have elevated proBNP, mildly elevated troponin, and chest x-ray consistent with pulmonary edema and pleural effusions. She has been having ongoing chest pressure for which she sees cardiology and was recently started on Ranexa. History and ROS reviewed as above Vitals reviewed Gen: AAOx3, NAD HEENT: Anicteric sclerae, EOMI CV: RRR 2/6 holosystolic murmur heard at left sternal border nl S1S2 Pulm: Decreased breath sounds at the bases bilaterally, no wcr Abd: +BS soft NT ND no masses or hernias Ext: Trace pitting edema in the legs bilaterally Skin: No rashes, warm/dry Neuro: Full strength throughout Labs and radiology studies reviewed ECG reviewed 85-year-old female here with acute on chronic combined diastolic and systolic CHF -Diuresed with IV Lasix Follow electrolytes, daily weights, I's and O's, renal function With mildly elevated troponin-trend serially but no aggressive intervention planned as per previous cardiology notation-patient's chest pressure may be from volume overload PG Care Time/CCT Total # of Minutes Spent Total Time Spent with Patient: Total time spent is greater than 50% in coordination of care (as documented) at patient's floor/unit and/or counseling patient: Coding Level of Care Code 00186 OBS Care - Level 3 Diagnoses Acute exacerbation of CHF (congestive heart failure) I50.9 Heart failure type: unspecified Chronic combined systolic and diastolic CHF (congestive heart failure) I50.42 Paroxysmal atrial fibrillation I48.0 Vitamin D deficiency E55.9 COPD (chronic obstructive pulmonary disease) J44.9 COPD type: unspecified COPD Diabetes mellitus E11.9; Z79.4 Diabetes mellitus complication status: without complication Diabetes mellitus public service representative insulin use: with mcc use Diabetes mellitus type: type 2 Dyslipidemia E78.5 Secondary hyperparathyroidism of renal origin N25.81 CAD (coronary artery disease) I25.708 Associated angina: with stable angina Coronary Disease-Associated Artery/Lesion type: bypass graft [place] vs. transplanted heart: [place] heart Anemia D64.9 CKD (chronic kidney disease), stage III N18.30 Chronic kidney disease stage 3 subtype: unspecified whether 3a or 3b (1) Acute exacerbation of CHF (congestive heart failure) Heart failure type: unspecified Qualified Code(s): I50.9 - Heart failure, unspecified (2) Diabetes mellitus Diabetes mellitus complication status: without complication Diabetes mellitus public service representative insulin use: with public service representative use Diabetes mellitus type: type 2 Qualified Code(s): E11.9 - Type 2 diabetes mellitus without complications; Z79.4 - senior linux engineer (current) use of insulin (3) CKD (chronic kidney disease), stage III Chronic kidney disease stage 3 subtype: unspecified whether 3a or 3b Qualified Code(s): N18.30 - Chronic kidney disease, stage 3 unspecified (4) CAD (coronary artery disease) Associated angina: with stable angina Coronary Disease-Associated Artery/Lesion type: bypass graft [place] vs. transplanted heart: [place] heart Qualified Code(s): I25.708 - Atherosclerosis of coronary artery bypass graft(s), unspecified, with other forms of angina pectoris (5) COPD (chronic obstructive pulmonary disease) COPD type: unspecified COPD Qualified Code(s): J44.9 - Chronic obstructive pulmonary disease, unspecified
[2020-08-10] MEDS ORDERED: GLUCAGON FOR INJ 1 MG VIAL SQ PRN (21:14)
[2020-08-10] MEDS ORDERED: CARBOHYDRATES FOR HYPOGLYCEMIA PO PRN (21:14)
[2020-08-10] MEDS ORDERED: DEXTROSE 50% 50 ML SYRINGE IV PRN (21:14)
[2020-08-10] MEDS ORDERED: GLUCOSE 10 TABS/TUBE PO PRN (21:14)
[2020-08-10] MEDS ORDERED: NITROGLYCERIN SL 0.4 MG/TAB TAB SL PRN (21:14)
[2020-08-10] MEDS ORDERED: GLUCOSE 40% GEL 15 GM TUBE PO PRN (21:14)
[2020-08-10] MEDS ORDERED: IPRATROPIUM BROMIDE/ALBUTEROL respimat INH INH PRN (21:14)
[2020-08-10] MEDS ORDERED: ALBUT/IPRATROP 3MG/0.5MG NEB 3 ML VIAL INH PRN (21:14)
[2020-08-10] MEDS ORDERED: Albuterol HFA 8 GM Inhaler (Combivent Respimat P&T Subs) INH PRN (21:33)
[2020-08-10] MEDS ORDERED: Ipratropium HFA Inhaler (Combivent Respimat P&T Subs) INH PRN (21:33)
[2020-08-10] MEDS ORDERED: ACETAMINOPHEN 325 MG TAB PO PRN (21:51)
[2020-08-10] MEDS: APIXABAN 2.5 MG TAB PO SCH (22:19)
[2020-08-10] MEDS: GABAPENTIN 300 MG CAP PO SCH (22:20)
[2020-08-10] MEDS: INSULIN GLARGINE SOLOSTAR 100 UNITS/ML 3 ML PEN SQ SCH (22:21)
[2020-08-10] MEDS: carvediloL 12.5 MG TAB PO SCH (22:22)
[2020-08-10] MEDS: LOVASTATIN 20 MG TAB PO SCH (22:22)
[2020-08-10] MEDS: RANOLAZINE 500 MG ER TAB PO SCH (22:24)
[2020-08-10] MEDS: VALSARTAN 80 MG TAB PO SCH (22:26)
[2020-08-11 06:28] LABS: Basophils # (auto) 0.01 K/uL (0-0.2); Basophils % (auto) 0.1 %; Eosinophils % (auto) 1.4 %; Hematocrit (blood only) 32.1 % (37-47); Hemoglobin 9.9 g/dL (12.0-16.0); Immature Granulocytes # (auto) 0.02 K/uL (0.00-0.02); Immature Granulocytes % (auto) 0.3 %; Lymphocytes % (auto) 28.6 %; Mean Corpuscular Hemoglobin 25.1 pg (25-34); Mean Corpuscular Hgb Conc 30.8 g/dL (32-36); Mean Corpuscular Volume 81.5 fL (80-100); Monocytes # (auto) 0.43 K/uL (0.11-0.59); Monocytes % (auto) 5.9 %; Neutrophils # (auto) 4.68 K/uL (1.4-6.5); Neutrophils % (auto) 63.7 %; Platelet Count 199 K/uL (130-400); RDW Coefficient of Variation 17.9 % (11.5-14.5); RDW Standard Deviation 53.9 fL (36.4-46.3); Red Blood Count 3.94 M/uL (4.2-5.4); White Blood Count 7.34 K/uL (4.8-10.8)
[2020-08-11 06:44] LABS: Estimated Average Glucose 137 mg/dl; Hemoglobin A1C 6.4 % (4.5-5.6)
[2020-08-11 06:47] LABS: BUN Creatinine Ratio 16.1 (10-20); Calcium 9.5 mg/dl (8.5-10.1); Creatinine Clr Calc Pharmacy 23.9 ml/min; Est GFR (African American) 47.5 ml/min; Potassium 3.4 mmol/L (3.5-5.1)
[2020-08-11 06:59] LABS: Troponin I 0.046 ng/ml (0-0.045)
[2020-08-11] MEDS: ASPIRIN 81 MG ECTAB PO SCH (07:36)
[2020-08-11] MEDS: APIXABAN 2.5 MG TAB PO SCH ×2 (07:36→20:35)
[2020-08-11] MEDS: FUROSEMIDE 20 MG TAB PO SCH (07:37)
[2020-08-11] MEDS: PANTOprazole 40 MG TAB PO SCH (07:37)
[2020-08-11] MEDS: carvediloL 12.5 MG TAB PO SCH ×2 (07:37→20:39)
[2020-08-11] MEDS: RANOLAZINE 500 MG ER TAB PO SCH ×2 (07:37→20:41)
[2020-08-11] MEDS: SERTRALINE HCL 50 MG TABLET PO SCH (07:38)
[2020-08-11] MEDS: VALSARTAN 80 MG TAB PO SCH ×2 (07:38→20:42)
[2020-08-11] MEDS: INSULIN ASPART 100 UNITS/ML 3 ML PEN SC SCH ×4 (08:21→20:47)
[2020-08-11] MEDS ORDERED: POTASSIUM CHLORIDE CRTAB 20 MEQ TABCR PO STA (08:32)
--- NOTE | 2020-08-11 08:40 | Hospitalist Progress Note ---
Date of Service August 11, 2020 Assessment & Plan (1) Acute exacerbation of CHF (congestive heart failure): Multifactorial with dietary indiscretion and missed medication doses. BNP 7325 with CXR with pulmonary congestion and LE edema Received 40mg IV + 20mg IV lasix 08/10 Net negative 1.8L --> Appears euvolemic today on examination and will continue with her daily 20mg PO furosemide for today and order dose of diamox x 1 for CO retention to see if improved response Wean O2 as tolerated -- currently 99% on 3L NC --> 99% on 1L this afternoon Daily weights, I*Os Continue valsartan 40mg PO BID, carvedilol 12.5mg BID, ASA 81mg, mevacor 40mg HS for her CAD as well ECHO pending Will also check TSH Continue to monitor (2) Chronic combined systolic and diastolic CHF (congestive heart failure): As above, acute on chronic combined systolic and diastolic CHF (3) Paroxysmal atrial fibrillation: Continue Eliquis 2.5mg PO BID NSR on monitor Carvedilol continued as above (4) Vitamin D deficiency: Hold Vitamin D for now (5) COPD (chronic obstructive pulmonary disease): This does not appear to be COPD exacerbation at this time however still with O2 requirement. Repeat CXR pending Continue nebulizers oxygen therapy as needed for SPO2 >88% -- Wean O2 as above (6) Diabetes mellitus: Continue Lantus 15units at night -NovoLog sliding scale with meals and at bedtime -Check hemoglobin A1c in the morning, previous was 6.9% in 03/2020 --> repeat A1c down to 6.4 - hypoglycemia protocol ordered - BG AC/HS BSG acceptable (7) Dyslipidemia: Continue Lovastatin 40 mg daily (8) Secondary hyperparathyroidism of renal origin: Hold her Calcitriol and vitamin D until her volume status is corrected (prior Vit D June) - calcium 9.5 (9) CAD (coronary artery disease): With stable angina, history of CABG - Continue recently started Ranexa and NTG PRN - Trend troponin I On admission 0.053 --> 0.041 --> 0.046 -- suspect secondary to demand from volume overload No CP reported Continue to trend troponin this afternoon (10) Anemia: Likely secondary to chronic disease Check iron studies in the morning -- Iron 40, trans % sat low at 7 --> started 325mg iron daily Certainly could be contributing to her SOB w exertion as well No reported bleeding/hematochezia/melena CBC in AM (11) Hypokalemia: secondary to diuresis as above supplemental ordered for today BMP in AM (12) CKD (chronic kidney disease), stage III: Follow volume status overnight Cr 1.19, 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 Doing well. Some shortness of breath with exertion but denies chest pain. Eating/drinking without issues. No nausea/vomiting/abdominal discomfort. Lives alone and will have therapy evals to determine safety at discharge. Weaning off O2 to see if able to maintain saturations. Review of Systems Review of Systems: All systems reviewed & are unremarkable except as noted in HPI & below Physical Exam Physical Exam: PHYSICAL EXAM: General: wn/wd, no apparent distress, sitting up in bed resting, easily arousable Head: Normocephalic, atraumatic ENT: PERRL, EOMI, no pharyngeal exudate, mucous membranes moist Neuro: AAO x 3, speech clear and appropriate, strength intact bilaterally 5/5, sensation intact and equal all extremities and dermatomes, no pronator drift Chest: equal rise and fall of the chest, no accessory muscle use, no heaves or thrills, diminished BS R base, no w/c/r. on 3L NC with SpO2 99% Cardiac: RRR, systolic ejection murmur, no JVD, no edema b/l LE GI: NABS x 4 quadrants, soft, nontender to palpation, no rebound, guarding or tenderness : no pain, no CVA tenderness, purewick with yellow urine Extremities: Normal inspection, no peripheral edema or erythema, calfs nontender to palpation Psych: Normal mood and affect Skin: no rash or erythema Results & Data Results & Data ([facility]) Vital Signs (Past 12 Hours) Vital Signs Temp Pulse Resp BP Pulse Ox 08/11/20 07:34 86 142/63 H 08/11/20 07:05 36.5 C 61 18 142/68 H 99 08/10/20 23:30 36.6 C 69 18 164/54 H 99 08/10/20 22:10 36.6 C 88 18 118/54 L 90 08/10/20 21:14 36.6 C 88 18 118/54 L 90 Laboratory Results 08/11/20 08/11/20 08/11/20 Range/Units 07:32 05:37 05:37 WBC (4.8-10.8) K/uL RBC (4.2-5.4) M/uL Hgb (12.0-16.0) g/dL Hct (37-47) % MCV (80-100) fL MCH (25-34) pg MCHC (32-36) g/dL RDW Std Deviation (36.4-46.3) fL RDW Coeff of Carlos (11.5-14.5) % Plt Count (130-400) K/uL MPV (7.4-10.4) fL Immature Gran % (Auto) % Neut % (Auto) % Lymph % (Auto) % [place] % (Auto) % Eos % (Auto) % Baso % (Auto) % Neut # (Auto) (1.4-6.5) K/uL Lymph # (Auto) (1.2-3.4) K/uL [place] # (Auto) (0.11-0.59) K/uL Eos # (Auto) (0-0.5) K/uL Baso # (Auto) (0-0.2) K/uL Immature Gran # (Auto) (0.00-0.02) K/uL Sodium 139 (136-145) mmol/L Potassium 3.4 L (3.5-5.1) mmol/L Chloride 100 (98-107) mmol/L Carbon Dioxide 37 H (21-32) mmol/L Anion Gap 2.0 L (3-11) BUN 19 H (7-18) mg/dl Creatinine 1.19 (0.6-1.2) mg/dl Est Cr Clr Drug Dosing 23.9 ml/min Est GFR ( Amer) 47.5 ml/min Est GFR (Non-Af Amer) 41.0 ml/min BUN/Creatinine Ratio 16.1 (10-20) Glucose 132 H (70-99) mg/dl POC Glucose 145 H (70-99) mg/dl Estimat Average Glucose mg/dl Hemoglobin A1c (4.5-5.6) % Calcium 9.5 (8.5-10.1) mg/dl Magnesium 2.0 (1.8-2.4) mg/dl Iron 40 (35-150) mcg/dl TIBC 482 H (250-450) mcg/dl Transferrin 383 H (200-360) mg/dl Transferrin % Sat 7 L (15-50) % Ferritin 23.0 (8-388) ng/ml Troponin I 0.046 H* (0-0.045) ng/ml NT-Pro-B Natriuret Pep (0-1800) pg/ml Urine Color Urine Appearance (Clear) Urine pH (4.5-7.5) Ur Specific [place] (1.000-1.030) Urine Protein (Negative) Urine Glucose (UA) (Negative) Urine Ketones (Negative) Urine Blood (Negative) Urine Nitrite (Negative) Urine Bilirubin (Negative) Urine Urobilinogen (Negative) Ur Leukocyte Esterase (Negative) COVID-19 Eval Order SARS-CoV-2 (PCR) (Negative) 08/11/20 08/11/20 08/10/20 Range/Units 05:37 05:37 21:41 WBC 7.34 (4.8-10.8) K/uL RBC 3.94 L (4.2-5.4) M/uL Hgb 9.9 L (12.0-16.0) g/dL Hct 32.1 L (37-47) % MCV 81.5 (80-100) fL MCH 25.1 (25-34) pg MCHC 30.8 L (32-36) g/dL RDW Std Deviation 53.9 H (36.4-46.3) fL RDW Coeff of Carlos 17.9 H (11.5-14.5) % Plt Count 199 (130-400) K/uL MPV 11.0 H (7.4-10.4) fL Immature Gran % (Auto) 0.3 % Neut % (Auto) 63.7 % Lymph % (Auto) 28.6 % [place] % (Auto) 5.9 % Eos % (Auto) 1.4 % Baso % (Auto) 0.1 % Neut # (Auto) 4.68 (1.4-6.5) K/uL Lymph # (Auto) 2.10 (1.2-3.4) K/uL [place] # (Auto) 0.43 (0.11-0.59) K/uL Eos # (Auto) 0.10 (0-0.5) K/uL Baso # (Auto) 0.01 (0-0.2) K/uL Immature Gran # (Auto) 0.02 (0.00-0.02) K/uL Sodium (136-145) mmol/L Potassium (3.5-5.1) mmol/L Chloride (98-107) mmol/L Carbon Dioxide (21-32) mmol/L Anion Gap (3-11) BUN (7-18) mg/dl Creatinine (0.6-1.2) mg/dl Est Cr Clr Drug Dosing ml/min Est GFR ( Amer) ml/min Est GFR (Non-Af Amer) ml/min BUN/Creatinine Ratio (10-20) Glucose (70-99) mg/dl POC Glucose (70-99) mg/dl Estimat Average Glucose 137 mg/dl Hemoglobin A1c 6.4 H (4.5-5.6) % Calcium (8.5-10.1) mg/dl Magnesium (1.8-2.4) mg/dl Iron (35-150) mcg/dl TIBC (250-450) mcg/dl Transferrin (200-360) mg/dl Transferrin % Sat (15-50) % Ferritin (8-388) ng/ml Troponin I 0.041 (0-0.045) ng/ml NT-Pro-B Natriuret Pep (0-1800) pg/ml Urine Color Urine Appearance (Clear) Urine pH (4.5-7.5) Ur Specific [place] (1.000-1.030) Urine Protein (Negative) Urine Glucose (UA) (Negative) Urine Ketones (Negative) Urine Blood (Negative) Urine Nitrite (Negative) Urine Bilirubin (Negative) Urine Urobilinogen (Negative) Ur Leukocyte Esterase (Negative) COVID-19 Eval Order SARS-CoV-2 (PCR) (Negative) 08/10/20 08/10/20 08/10/20 Range/Units 21:19 16:25 16:25 WBC (4.8-10.8) K/uL RBC (4.2-5.4) M/uL Hgb (12.0-16.0) g/dL Hct (37-47) % MCV (80-100) fL MCH (25-34) pg MCHC (32-36) g/dL RDW Std Deviation (36.4-46.3) fL RDW Coeff of Carlos (11.5-14.5) % Plt Count (130-400) K/uL MPV (7.4-10.4) fL Immature Gran % (Auto) % Neut % (Auto) % Lymph % (Auto) % [place] % (Auto) % Eos % (Auto) % Baso % (Auto) % Neut # (Auto) (1.4-6.5) K/uL Lymph # (Auto) (1.2-3.4) K/uL [place] # (Auto) (0.11-0.59) K/uL Eos # (Auto) (0-0.5) K/uL Baso # (Auto) (0-0.2) K/uL Immature Gran # (Auto) (0.00-0.02) K/uL Sodium (136-145) mmol/L Potassium (3.5-5.1) mmol/L Chloride (98-107) mmol/L Carbon Dioxide (21-32) mmol/L Anion Gap (3-11) BUN (7-18) mg/dl Creatinine (0.6-1.2) mg/dl Est Cr Clr Drug Dosing ml/min Est GFR ( Amer) ml/min Est GFR (Non-Af Amer) ml/min BUN/Creatinine Ratio (10-20) Glucose (70-99) mg/dl POC Glucose 147 H (70-99) mg/dl Estimat Average Glucose mg/dl Hemoglobin A1c (4.5-5.6) % Calcium (8.5-10.1) mg/dl Magnesium (1.8-2.4) mg/dl Iron (35-150) mcg/dl TIBC (250-450) mcg/dl Transferrin (200-360) mg/dl Transferrin % Sat (15-50) % Ferritin (8-388) ng/ml Troponin I (0-0.045) ng/ml NT-Pro-B Natriuret Pep (0-1800) pg/ml Urine Color Urine Appearance (Clear) Urine pH (4.5-7.5) Ur Specific [place] (1.000-1.030) Urine Protein (Negative) Urine Glucose (UA) (Negative) Urine Ketones (Negative) Urine Blood (Negative) Urine Nitrite (Negative) Urine Bilirubin (Negative) Urine Urobilinogen (Negative) Ur Leukocyte Esterase (Negative) COVID-19 Eval Order Covid19 at [facility] SARS-CoV-2 (PCR) NEGATIVE (Negative) 08/10/20 08/10/20 08/10/20 Range/Units 14:44 14:31 14:31 WBC 7.20 (4.8-10.8) K/uL RBC 3.73 L (4.2-5.4) M/uL Hgb 9.5 L (12.0-16.0) g/dL Hct 31.1 L (37-47) % MCV 83.4 (80-100) fL MCH 25.5 (25-34) pg MCHC 30.5 L (32-36) g/dL RDW Std Deviation 55.2 H (36.4-46.3) fL RDW Coeff of Carlos 17.9 H (11.5-14.5) % Plt Count 193 (130-400) K/uL MPV 10.7 H (7.4-10.4) fL Immature Gran % (Auto) 0.1 % Neut % (Auto) 70.5 % Lymph % (Auto) 24.2 % [place] % (Auto) 4.4 % Eos % (Auto) 0.7 % Baso % (Auto) 0.1 % Neut # (Auto) 5.07 (1.4-6.5) K/uL Lymph # (Auto) 1.74 (1.2-3.4) K/uL [place] # (Auto) 0.32 (0.11-0.59) K/uL Eos # (Auto) 0.05 (0-0.5) K/uL Baso # (Auto) 0.01 (0-0.2) K/uL Immature Gran # (Auto) 0.01 (0.00-0.02) K/uL Sodium 137 (136-145) mmol/L Potassium 3.9 (3.5-5.1) mmol/L Chloride 100 (98-107) mmol/L Carbon Dioxide 36 H (21-32) mmol/L Anion Gap 1.0 L (3-11) BUN 14 (7-18) mg/dl Creatinine 1.06 (0.6-1.2) mg/dl Est Cr Clr Drug Dosing 26.9 ml/min Est GFR ( Amer) 54.7 ml/min Est GFR (Non-Af Amer) 47.2 ml/min BUN/Creatinine Ratio 13.1 (10-20) Glucose 109 H (70-99) mg/dl POC Glucose (70-99) mg/dl Estimat Average Glucose mg/dl Hemoglobin A1c (4.5-5.6) % Calcium 9.4 (8.5-10.1) mg/dl Magnesium 2.0 (1.8-2.4) mg/dl Iron (35-150) mcg/dl TIBC (250-450) mcg/dl Transferrin (200-360) mg/dl Transferrin % Sat (15-50) % Ferritin (8-388) ng/ml Troponin I 0.053 H* (0-0.045) ng/ml NT-Pro-B Natriuret Pep 7325 H (0-1800) pg/ml Urine Color Yellow Urine Appearance Clear (Clear) Urine pH 8.5 H (4.5-7.5) Ur Specific [place] 1.005 (1.000-1.030) Urine Protein Negative (Negative) Urine Glucose (UA) Negative (Negative) Urine Ketones Negative (Negative) Urine Blood Negative (Negative) Urine Nitrite Negative (Negative) Urine Bilirubin Negative (Negative) Urine Urobilinogen Negative (Negative) Ur Leukocyte Esterase Negative (Negative) COVID-19 Eval Order SARS-CoV-2 (PCR) (Negative) PG Care Time/CCT Total # of Minutes Spent Total Time Spent with Patient: Total time spent is greater than 50% in coordination of care (as documented) at patient's floor/unit and/or counseling patient: Coding Level of Care Code 56862 Subseq Hosp Care Lvl 3 Diagnoses Acute exacerbation of CHF (congestive heart failure) I50.9 Heart failure type: unspecified Chronic combined systolic and diastolic CHF (congestive heart failure) I50.42 Paroxysmal atrial fibrillation I48.0 Vitamin D deficiency E55.9 COPD (chronic obstructive pulmonary disease) J44.9 COPD type: unspecified COPD Diabetes mellitus E11.9; Z79.4 Diabetes mellitus complication status: without complication Diabetes mellitus assisted insulin use: with lens hardener use Diabetes mellitus type: type 2 Dyslipidemia E78.5 Secondary hyperparathyroidism of renal origin N25.81 CAD (coronary artery disease) I25.708 Associated angina: with stable angina Coronary Disease-Associated Artery/Lesion type: bypass graft [place] vs. transplanted heart: [place] heart Anemia D64.9 Hypokalemia E87.6 CKD (chronic kidney disease), stage III N18.30 Chronic kidney disease stage 3 subtype: unspecified whether 3a or 3b DVT prophylaxis Z29.9 (1) Acute exacerbation of CHF (congestive heart failure) Heart failure type: unspecified Qualified Code(s): I50.9 - Heart failure, unspecified (2) Diabetes mellitus Diabetes mellitus complication status: without complication Diabetes mellitus lens hardener insulin use: with assisted use Diabetes mellitus type: type 2 Qualified Code(s): E11.9 - Type 2 diabetes mellitus without complications; 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 transplanted heart: [place] heart Qualified Code(s): I25.708 - Atherosclerosis of coronary artery bypass graft(s), unspecified, with other forms of angina pectoris (5) COPD (chronic obstructive pulmonary disease) COPD type: unspecified COPD Qualified Code(s): J44.9 - Chronic obstructive pulmonary disease, unspecified
[2020-08-11] MEDS ORDERED: FERROUS SULFATE 325 MG TAB PO SCH (09:00)
[2020-08-11] MEDS ORDERED: acetaZOLAMIDE 250 MG TAB PO ONE (09:45)
--- NOTE | 2020-08-11 10:44 | XRay Report ---
XR chest 1V portable CLINICAL HISTORY: f/u volume overload COMPARISON STUDY: Chest CT August 10, 2020 FINDINGS: There are median sternotomy wires, dual lead left subclavian pacermaker and a prosthetic mi tral valve. There is no pneumothorax. Small bilateral pleural effusions have improved. Pulmonary wan a has slightly improved. Postoperative findings within the left shoulder are incidentally noted. IMPRESSION: Interval improvement in pulmonary edema and small bilateral pleural effusions. ACT 112: Negative or not required by law. Electronically signed by: Sonido Issa M.D. 08/11/2020 10:43 AM
[2020-08-11 12:43] LABS: Thyroid Stimulating Hormone 1.47 uIu/ml (0.300-4.500); Troponin I 0.046 ng/ml (0-0.045)
--- NOTE | 2020-08-11 13:31 | Heart Failure Consultation ---
Date of Consultation August 11, 2020 Assessment & Plan (1) Acute exacerbation of CHF (congestive heart failure): (2) Chronic combined systolic and diastolic CHF (congestive heart failure): (3) CKD (chronic kidney disease), stage III: (4) Cardiac pacemaker: (5) CAD (coronary artery disease): (6) Paroxysmal atrial fibrillation: Patient has been referred to the heart failure program by the primary service. This is her second heart failure related admission in 2 months. Etiology likely secondary to non-adherence and dietary indiscretion. Anemia may contributing factor to her dyspnea. She would benefit from more intensive outpatient management. She appears near euvolemic on exam today. Symptoms are improving. Patient is on supplemental O2, 3 L chronically at home. Currently saturations 97%, may try to further wean down if tolerated. Kidney function and electrolytes are stable. Continue Lasix 20 mg daily. She is not currently doing daily standing weights at home. Would recommend this on discharge. Increase to 40 mg daily for 2+ lb weight gain overnight or 5+lb in 1 week. Recommend low sodium diet. Strict I&Os while inpatient. Daily STANDING weights while inpatient. Disposition: Will continue to follow during hospitalization. Will arrange for close outpatient follow up with the heart failure program. History of Present Illness Attending Physician: Doyle Sung MD Mrs. Vasquez is 85 year old female with history of hypertension, hypercholesterolemia, paroxysmal atrial fibrillation (March 2017), ischemic cardiomyopathy (45%), complete heart block (DDD pacemaker, October 2011, follo ws with Dr. Mcgee), mitral valve disease (mitral valve repair/annuloplasty, March 2010), combined CHF, and her coronary artery disease (CABG x2, March 2010). Dr. Breaux is her primary silk screen frame assembler. She was most recently evaluated on 07/24/20. She was started on a trial of Ranolazine at 500 mg BID and given an rx for Nitro. Home dry weight is 112 lb and she takes Lasix 20 mg daily with an additional 20 mg PRN. Patient presented on 08/10/20 with shortness of breath and edema. She failed to respond to escalation of her outpatient diuretic regimen. There was questionable medication adherence and likely dietary indiscretion. ProBNP elevated at 7k. CXR with pulmonary congestion. She received Lasix 40 mg IV in the ED and another 20 mg IV on admission. She responded well, negative 1.8 L. Her weight is down to 105 lb. Today she reports she's feeling well. Her breathing has improved to baseline. She remains on supplemental O2 but uses this at baseline she says. She slept well with her head slightly elevated. Denies PND. She has no lower extremity edema. She denies chest pain, palpitations, or lightheadedness. Patient lives alone. Her daughter lives next door and does her medications. Allergies Allergy/AdvReac Type Severity Reaction Status Date / Time tamsulosin Allergy Severe SHORTNESS Verified 08/10/20 16:06 OF BREATH butalbital Allergy Intermediate SHORTNESS Verified 08/10/20 16:06 OF BREATH nitrofurantoin Allergy Unknown Unknown Verified 08/10/20 16:06 [From Macrobid] Cephalosporins AdvReac Severe TONGUE Verified 08/10/20 16:06 SWELLING WITH KEFLEX- tolerating keflex 03/16/20 levetiracetam AdvReac Intermediate RASH Verified 08/10/20 16:06 morphine AdvReac Intermediate hallucinati Verified 08/10/20 16:06 ons Sulfa (Sulfonamide AdvReac Unknown "SULFA Verified 08/10/20 16:06 Antibiotics) DRUGS" - UNKNOWN Home Medications Medication Instructions Recorded Confirmed Type Combivent Respimat 1 puff INHALATION QID PRN #0 05/08/14 08/10/20 History aspirin 81 mg PO QAM 10/01/18 08/10/20 History valsartan 40 mg tablet 40 mg PO BID #180 tab 10/16/19 08/10/20 Rx furosemide 20 mg tablet 20 mg PO QAM #30 tab 12/26/19 08/10/20 Rx gabapentin 400 mg capsule 400 mg PO HS #30 cap 12/26/19 08/10/20 Rx ipratropium 0.5 mg-albuterol 3 mg 3 ml INHALATION Q4H PRN #180 ml 12/26/19 08/10/20 Rx (2.5 mg base)/3 mL nebulization soln lovastatin 40 mg tablet 40 mg PO HS #90 tab 01/23/20 08/10/20 Rx apixaban 2.5 mg tablet 2.5 mg PO BID #60 tab 04/03/20 08/10/20 Rx calcium carbonate 500 mg (1,250 1 tab PO QAM #0 tab 04/09/20 08/10/20 History mg)-vitamin D3 200 unit tablet Lantus Solostar U-100 Insulin 15 unit SQ HS 06/04/20 08/10/20 History portable O2 concentrator #1 ea 06/18/20 07/24/20 Rx calcitriol 0.25 mcg capsule 0.25 mcg PO 3XWK #14 cap 06/26/20 08/10/20 Rx carvedilol 12.5 mg tablet 12.5 mg PO BID #60 tab 07/24/20 08/10/20 Rx nitroglycerin 0.4 mg sublingual 0.4 mg SUBLINGUAL Q5M PRN #20 tab 07/24/20 08/10/20 Rx tablet ranolazine 500 mg tablet,extended 500 mg PO BID #60 tab 07/24/20 08/10/20 Rx release,12 hr pen needle, diabetic 31 gauge x #100 ea 07/27/20 Rx 5/16" gabapentin 300 mg PO HS 08/10/20 08/10/20 History pantoprazole 40 mg PO QAM 08/10/20 08/10/20 History sertraline 50 mg PO QAM 08/10/20 08/10/20 History ferrous sulfate 325 mg PO DAILY #30 tab 08/11/20 Rx Patient History Medical History Abscess of hand, right Acute UTI (urinary tract infection) Allergy to multiple antibiotics Anemia Cardiac pacemaker for complete hear block Cellulitis of right hand Cerebellar infarct Chronic renal disease, stage III Depression Diabetes mellitus Extremity atherosclerosis with intermittent claudication Fracture of pubic ramus Gait instability History of chest pain Hypertension Lower abdominal pain Secondary hyperparathyroidism of renal origin Solitary pulmonary nodule Transient ischemic attack (TIA) Vitamin D deficiency Surgical History History of nasal surgery Hx of carpal tunnel repair Family History Other Family history non-contributory Social History Smoking Status: Former smoker Second Hand Exposure: No; Do You Dip or Chew Tobacco: No; Tobacco Cessation Education Requested by Patient: No Hx Alcohol Use: No Hx Substance Use: No Preferred Language: Czech Communication Ability: Effective Visual Impairment: No Limitations Wealth Management Advisor Required: No Beliefs That Will Affect Care: None marital status: / Current Living Situation: Alone Feels Safe at Home: Yes Safety Concerns: Feels Safe At This Time Assistive Devices: Glasses and Oxygen - Continuous Physical Exam Physical Exam: Constitutional: Alert, oriented, in no acute distress HEENT: Head is atraumatic and normocephalic. EOMs intact. Sclera anicteric. Face is symmetric. No perioral cyanosis. Mucous membranes moist. Neck: Supple, no JVD Pulmonary: Normal respiratory effort, faint crackles at the bases. Cardiac: Regular rate and rhythm. Normal S1 and S2, no gallops, no rubs. + systolic murmur. Chest: Palpable left subclavian device Extremities: 2+ radial pulses bilaterally. 2+ posterior tibialis pulses bilaterally. No pitting edema. No cyanosis or clubbing. Abdomen: Normal bowel sounds, soft, non-tender, no abdominal mass palpated Skin: Normal skin color, turgor, and pigmentation, no rash, no skin lesions Neurological: Patient is awake, alert, and oriented. Pleasant and cooperative. Answers questions appropriately. Speech is clear. Normal movement in all 4 extremities. Gait pattern not assessed. Results & Data ([facility]) Vital Signs (Past 12 Hours) Vital Signs Temp Pulse Resp BP Pulse Ox 08/11/20 10:21 98 08/11/20 07:34 86 142/63 H 08/11/20 07:05 97.7 F 61 18 142/68 H 99 Coding Level of Care Code 38866 Initial Inpt Care Lvl 3 Diagnoses Acute exacerbation of CHF (congestive heart failure) I50.9 Heart failure type: unspecified Chronic combined systolic and diastolic CHF (congestive heart failure) I50.42 CKD (chronic kidney disease), stage III N18.30 Chronic kidney disease stage 3 subtype: unspecified whether 3a or 3b Cardiac pacemaker Z95.0 CAD (coronary artery disease) I25.708 Coronary Disease-Associated Artery/Lesion type: bypass graft [place] vs. transplanted heart: [place] heart Associated angina: with stable angina Paroxysmal atrial fibrillation I48.0 (1) Acute exacerbation of CHF (congestive heart failure) Heart failure type: unspecified Qualified Code(s): I50.9 - Heart failure, unspecified (2) CKD (chronic kidney disease), stage III Chronic kidney disease stage 3 subtype: unspecified whether 3a or 3b Qualified Code(s): N18.30 - Chronic kidney disease, stage 3 unspecified (3) CAD (coronary artery disease) Coronary Disease-Associated Artery/Lesion type: bypass graft [place] vs. transplanted heart: [place] heart Associated angina: with stable angina Qualified Code(s): I25.708 - Atherosclerosis of coronary artery bypass graft(s), unspecified, with other forms of angina pectoris
--- NOTE | 2020-08-11 15:58 | Electrocardiogram Report ---
Test Reason : Blood Pressure : / mmHG Vent. Rate : 069 BPM Atrial Rate : 069 BPM P-R Int : 174 ms QRS Dur : 148 ms QT Int : 462 ms P-R-T Axes : 033 -66 094 degrees QTc Int : 495 ms Atrial-sensed ventricular-paced rhythm Abnormal ECG When compared with ECG of 16-MAR-2020 18:40, Electronic ventricular pacemaker has replaced Sinus rhythm Confirmed by Nick Mcgee ([id number]) on 08/11/2020 3:58:42 PM Referred By: Confirmed By:Nick Mcgee
[2020-08-11] MEDS ORDERED: IRON SUCROSE 300 MG in SODIUM CHLORIDE 0.9% 250 ML IV ONE (17:00)
[2020-08-11] MEDS: GABAPENTIN 300 MG CAP PO SCH (20:40)
[2020-08-11] MEDS: LOVASTATIN 20 MG TAB PO SCH (20:40)
[2020-08-11] MEDS: INSULIN GLARGINE SOLOSTAR 100 UNITS/ML 3 ML PEN SQ SCH (20:47)
[2020-08-12 06:04] LABS: Basophils # (auto) 0.03 K/uL (0-0.2); Basophils % (auto) 0.4 %; Eosinophils # (auto) 0.18 K/uL (0-0.5); Eosinophils % (auto) 2.6 %; Hematocrit (blood only) 30.2 % (37-47); Hemoglobin 9.3 g/dL (12.0-16.0); Immature Granulocytes # (auto) 0.01 K/uL (0.00-0.02); Immature Granulocytes % (auto) 0.1 %; Lymphocytes # (auto) 2.29 K/uL (1.2-3.4); Lymphocytes % (auto) 33.4 %; Mean Corpuscular Hemoglobin 25.4 pg (25-34); Mean Corpuscular Hgb Conc 30.8 g/dL (32-36); Mean Corpuscular Volume 82.5 fL (80-100); Monocytes # (auto) 0.46 K/uL (0.11-0.59); Monocytes % (auto) 6.7 %; Neutrophils # (auto) 3.88 K/uL (1.4-6.5); Neutrophils % (auto) 56.8 %; Platelet Count 187 K/uL (130-400); RDW Coefficient of Variation 17.7 % (11.5-14.5); RDW Standard Deviation 53.6 fL (36.4-46.3); Red Blood Count 3.66 M/uL (4.2-5.4); White Blood Count 6.85 K/uL (4.8-10.8)
[2020-08-12 06:32] LABS: BUN Creatinine Ratio 19.2 (10-20); Calcium 9.2 mg/dl (8.5-10.1); Creatinine Clr Calc Pharmacy 20.6 ml/min; Est GFR (African American) 39.7 ml/min; Est GFR (Non-African American) 34.3 ml/min; Potassium 3.6 mmol/L (3.5-5.1)
[2020-08-12] MEDS ORDERED: IRON SUCROSE 300 MG in SODIUM CHLORIDE 0.9% 250 ML IV ONE (08:00)
[2020-08-12] MEDS: INSULIN ASPART 100 UNITS/ML 3 ML PEN SC SCH ×2 (08:03→12:18)
[2020-08-12] MEDS: FUROSEMIDE 20 MG TAB PO SCH (08:06)
[2020-08-12] MEDS: carvediloL 12.5 MG TAB PO SCH (08:06)
[2020-08-12] MEDS: ASPIRIN 81 MG ECTAB PO SCH (08:06)
[2020-08-12] MEDS: SERTRALINE HCL 50 MG TABLET PO SCH (08:06)
[2020-08-12] MEDS: VALSARTAN 80 MG TAB PO SCH (08:06)
[2020-08-12] MEDS: PANTOprazole 40 MG TAB PO SCH (08:06)
[2020-08-12] MEDS: RANOLAZINE 500 MG ER TAB PO SCH (08:06)
[2020-08-12] MEDS: APIXABAN 2.5 MG TAB PO SCH (08:06)
--- NOTE | 2020-08-12 08:09 | Hospitalist Progress Note ---
Date of Service August 12, 2020 Assessment & Plan Admission and Anticipated Discharge Date Admission Date: August 11, 2020 Results & Data Results & Data ([facility]) Vital Signs (Past 12 Hours) Vital Signs Temp Pulse Resp BP Pulse Ox 08/11/20 23:02 36.5 C 64 16 138/71 97 08/11/20 22:03 98 Laboratory Results 08/12/20 08/12/20 08/12/20 Range/Units 08:03 05:51 05:51 WBC (4.8-10.8) K/uL RBC (4.2-5.4) M/uL Hgb (12.0-16.0) g/dL Hct (37-47) % MCV (80-100) fL MCH (25-34) pg MCHC (32-36) g/dL RDW Std Deviation (36.4-46.3) fL RDW Coeff of Carlos (11.5-14.5) % Plt Count (130-400) K/uL MPV (7.4-10.4) fL Immature Gran % (Auto) % Neut % (Auto) % Lymph % (Auto) % [place] % (Auto) % Eos % (Auto) % Baso % (Auto) % Neut # (Auto) (1.4-6.5) K/uL Lymph # (Auto) (1.2-3.4) K/uL [place] # (Auto) (0.11-0.59) K/uL Eos # (Auto) (0-0.5) K/uL Baso # (Auto) (0-0.2) K/uL Immature Gran # (Auto) (0.00-0.02) K/uL Sodium 136 (136-145) mmol/L Potassium 3.6 (3.5-5.1) mmol/L Chloride 101 (98-107) mmol/L Carbon Dioxide 31 (21-32) mmol/L Anion Gap 4.0 (3-11) BUN 27 H (7-18) mg/dl Creatinine 1.38 H (0.6-1.2) mg/dl Est Cr Clr Drug Dosing 20.6 ml/min Est GFR ( Amer) 39.7 ml/min Est GFR (Non-Af Amer) 34.3 ml/min BUN/Creatinine Ratio 19.2 (10-20) Glucose 108 H (70-99) mg/dl POC Glucose 126 H (70-99) mg/dl Calcium 9.2 (8.5-10.1) mg/dl Magnesium 2.0 (1.8-2.4) mg/dl Troponin I 0.057 H* (0-0.045) ng/ml TSH (0.300-4.500) uIu/ml 08/12/20 08/11/20 08/11/20 Range/Units 05:51 22:41 20:27 WBC 6.85 (4.8-10.8) K/uL RBC 3.66 L (4.2-5.4) M/uL Hgb 9.3 L (12.0-16.0) g/dL Hct 30.2 L (37-47) % MCV 82.5 (80-100) fL MCH 25.4 (25-34) pg MCHC 30.8 L (32-36) g/dL RDW Std Deviation 53.6 H (36.4-46.3) fL RDW Coeff of Carlos 17.7 H (11.5-14.5) % Plt Count 187 (130-400) K/uL MPV 11.0 H (7.4-10.4) fL Immature Gran % (Auto) 0.1 % Neut % (Auto) 56.8 % Lymph % (Auto) 33.4 % [place] % (Auto) 6.7 % Eos % (Auto) 2.6 % Baso % (Auto) 0.4 % Neut # (Auto) 3.88 (1.4-6.5) K/uL Lymph # (Auto) 2.29 (1.2-3.4) K/uL [place] # (Auto) 0.46 (0.11-0.59) K/uL Eos # (Auto) 0.18 (0-0.5) K/uL Baso # (Auto) 0.03 (0-0.2) K/uL Immature Gran # (Auto) 0.01 (0.00-0.02) K/uL Sodium (136-145) mmol/L Potassium (3.5-5.1) mmol/L Chloride (98-107) mmol/L Carbon Dioxide (21-32) mmol/L Anion Gap (3-11) BUN (7-18) mg/dl Creatinine (0.6-1.2) mg/dl Est Cr Clr Drug Dosing ml/min Est GFR ( Amer) ml/min Est GFR (Non-Af Amer) ml/min BUN/Creatinine Ratio (10-20) Glucose (70-99) mg/dl POC Glucose 134 H (70-99) mg/dl Calcium (8.5-10.1) mg/dl Magnesium (1.8-2.4) mg/dl Troponin I 0.069 H* (0-0.045) ng/ml TSH (0.300-4.500) uIu/ml 08/11/20 08/11/20 08/11/20 Range/Units 17:24 16:31 11:35 WBC (4.8-10.8) K/uL RBC (4.2-5.4) M/uL Hgb (12.0-16.0) g/dL Hct (37-47) % MCV (80-100) fL MCH (25-34) pg MCHC (32-36) g/dL RDW Std Deviation (36.4-46.3) fL RDW Coeff of Carlos (11.5-14.5) % Plt Count (130-400) K/uL MPV (7.4-10.4) fL Immature Gran % (Auto) % Neut % (Auto) % Lymph % (Auto) % [place] % (Auto) % Eos % (Auto) % Baso % (Auto) % Neut # (Auto) (1.4-6.5) K/uL Lymph # (Auto) (1.2-3.4) K/uL [place] # (Auto) (0.11-0.59) K/uL Eos # (Auto) (0-0.5) K/uL Baso # (Auto) (0-0.2) K/uL Immature Gran # (Auto) (0.00-0.02) K/uL Sodium (136-145) mmol/L Potassium (3.5-5.1) mmol/L Chloride (98-107) mmol/L Carbon Dioxide (21-32) mmol/L Anion Gap (3-11) BUN (7-18) mg/dl Creatinine (0.6-1.2) mg/dl Est Cr Clr Drug Dosing ml/min Est GFR ( Amer) ml/min Est GFR (Non-Af Amer) ml/min BUN/Creatinine Ratio (10-20) Glucose (70-99) mg/dl POC Glucose 155 H 220 H (70-99) mg/dl Calcium (8.5-10.1) mg/dl Magnesium (1.8-2.4) mg/dl Troponin I 0.056 H* (0-0.045) ng/ml TSH (0.300-4.500) uIu/ml 08/11/20 Range/Units 11:29 WBC (4.8-10.8) K/uL RBC (4.2-5.4) M/uL Hgb (12.0-16.0) g/dL Hct (37-47) % MCV (80-100) fL MCH (25-34) pg MCHC (32-36) g/dL RDW Std Deviation (36.4-46.3) fL RDW Coeff of Carlos (11.5-14.5) % Plt Count (130-400) K/uL MPV (7.4-10.4) fL Immature Gran % (Auto) % Neut % (Auto) % Lymph % (Auto) % [place] % (Auto) % Eos % (Auto) % Baso % (Auto) % Neut # (Auto) (1.4-6.5) K/uL Lymph # (Auto) (1.2-3.4) K/uL [place] # (Auto) (0.11-0.59) K/uL Eos # (Auto) (0-0.5) K/uL Baso # (Auto) (0-0.2) K/uL Immature Gran # (Auto) (0.00-0.02) K/uL Sodium (136-145) mmol/L Potassium (3.5-5.1) mmol/L Chloride (98-107) mmol/L Carbon Dioxide (21-32) mmol/L Anion Gap (3-11) BUN (7-18) mg/dl Creatinine (0.6-1.2) mg/dl Est Cr Clr Drug Dosing ml/min Est GFR ( Amer) ml/min Est GFR (Non-Af Amer) ml/min BUN/Creatinine Ratio (10-20) Glucose (70-99) mg/dl POC Glucose (70-99) mg/dl Calcium (8.5-10.1) mg/dl Magnesium (1.8-2.4) mg/dl Troponin I 0.046 H* (0-0.045) ng/ml TSH 1.470 (0.300-4.500) uIu/ml PG Care Time/CCT Total # of Minutes Spent Total Time Spent with Patient: Total time spent is greater than 50% in coordination of care (as documented) at patient's floor/unit and/or counseling patient: Coding
--- NOTE | 2020-08-12 13:00 | XCELERA ---
[id number]\[id number]
--- NOTE | 2020-08-12 13:22 | Discharge Summary ---
Date of Service August 12, 2020 Admission HPI Per Admitting Provider 85 YOF with past medical history of: DM(on Lantus), COPD, Afib, combined HF, AV block with pacemaker, anemia, Afib, CAD with ICM, CABG(22010), Vitamin D deficiency, secondary hyperparathyroidism, CKD III, chronic abdominal pain. Patient comes in to the emergency room for 1 week history of increase in dyspnea and weights at home, normally controlled with increasing her daily Lasix dose to 40mg for a brief period. This was done last week by her PCP. She had a tried again over the weekend with increase of Lasix 40mg PO, with no change in her dyspnea. She reports that she had to sit up throughout the night to catch her breath. Her son accompanies her and reports that has been forgetting to use her nebulizers at home and was able to get her to catch her breath over the weekend with her nebulizers, but also noticed that some of her Lasix pills were on the ground. Son also reports some likely dietary indiscretion over the weekend as well. The patient denies any fevers or chills, or increase in sputum production. She recently followed up with cardiology and endorsed to them some episodes of angina, and was started on a trial of ranolazine 500mg BID and sublingual NTG PRN. The patient states that she hasn't been experiencing any of those symptoms leading up to her admission. She does have an elevated BNP and CXR with increase in vascular congestion and right sided pleural effusion. She was given 40mg IV Lasix in the EMD and is responding, she also states that her breathing is improved. We will observe her overnight, administer 1 20mg Lasix in the evening and trend her troponin I as this was mildly elevated at 0.053. Admission Exam Per Admitting Provider PHYSICAL EXAM: General: awake, alert, no apparent distress Head: Normocephalic, atraumatic ENT: PERRL, EOMI, no pharyngeal exudate, mucous membranes moist Neuro: AAO x 3, speech clear and appropriate, strength intact bilaterally 5/5, sensation intact and equal all extremities and dermatomes, no pronator drift Chest: equal rise and fall of the chest, no accessory muscle use, no heaves or thrills, scattered crackles bilaterally decreased right base, transitioned to room-air Cardiac: Regular rate and rhythm, telemetry reviewed, skin warm dry, cap refill <3 seconds, peripheral pulses +2 no JVD, no murmur, no JVD, 1+ to lower extremity edema GI: NABS x 4 quadrants, soft, nontender to palpation, no rebound, guarding or tenderness : Spontaneously voiding, no pain, no CVA tenderness, Extremities: Normal inspection, no peripheral edema or erythema, calfs nontender to palpation Psych: Normal mood and affect Skin: no rash or erythema Principal Diagnosis CHF exacerbation, Anemia Discharge Exam PHYSICAL EXAM: General: wn/wd, no apparent distress, sitting up at side of bed, comfortable, cooperative, improved pallor Head: Normocephalic, atraumatic ENT: PERRL, EOMI, no pharyngeal exudate, mucous membranes moist Neuro: AAO x 3, speech clear and appropriate, strength intact bilaterally 5/5, sensation intact and equal all extremities and dermatomes, no pronator drift Chest: equal rise and fall of the chest, no accessory muscle use, no heaves or thrills, diminished BS R base, no w/c/r. SpO2 96% on 1L NC Cardiac: RRR, harsh systolic ejection murmur, no JVD, no edema b/l LE GI: NABS x 4 quadrants, soft, nontender to palpation, no rebound, guarding or tenderness : no pain, no CVA tenderness, NO DAVIS Extremities: Normal inspection, no peripheral edema or erythema, calfs nontender to palpation Psych: Normal mood and affect Skin: no rash or erythema Discharge Data Allergies Allergy/AdvReac Type Severity Reaction Status Date / Time tamsulosin Allergy Severe SHORTNESS Verified 08/10/20 16:06 OF BREATH butalbital Allergy Intermediate SHORTNESS Verified 08/10/20 16:06 OF BREATH nitrofurantoin Allergy Unknown Unknown Verified 08/10/20 16:06 [From Macrobid] Cephalosporins AdvReac Severe TONGUE Verified 08/10/20 16:06 SWELLING WITH KEFLEX- tolerating keflex 03/16/20 levetiracetam AdvReac Intermediate RASH Verified 08/10/20 16:06 morphine AdvReac Intermediate hallucinati Verified 08/10/20 16:06 ons Sulfa (Sulfonamide AdvReac Unknown "SULFA Verified 08/10/20 16:06 Antibiotics) DRUGS" - UNKNOWN Consultations 08/10/20 15:48 ED Decision to Admit Stat 08/11/20 15:43 [facility] [place] Routine Hospital Course (1) Acute exacerbation of CHF (congestive heart failure): Multifactorial with dietary indiscretion and missed medication doses. BNP 7325 with CXR with pulmonary congestion and LE edema ECHO -- mildly reduced EF 40-45%, L atrium dilated, R atrium dilated, likely severe based on dimensionless index, although trans aortic velocity suggest more moderate stenosis possibly underestimated due to mildly reduced LV function. Moderate mitral annular calcification, mild MR, mild MS, mild-mod TR, RVSP elevated 40-50mmHg TSH 1.47 wnl Received 40mg IV + 20mg IV lasix 08/10 (usually on 20mg PO daily but possibly missed dose or two over the weekend) Net negative and continued her 20mg PO lasix (held day of d/c for elevated Cr 1.38) to resume tomorrow. Follow up with CHF (and cardiology, Dr Breaux) clinic given delicate fluid balance in patient with aortic stenosis and other valvular disease -- wt 48.4kg today (52.5kg on admission but suspect true dry weight closer to ~49kg) Continued valsartan 40mg PO BID, carvedilol 12.5mg BID, ASA 81mg, mevacor 40mg HS for her CAD as well (2) Chronic combined systolic and diastolic CHF (congestive heart failure): As above, acute on chronic combined systolic and diastolic CHF (3) Paroxysmal atrial fibrillation: Continue Eliquis 2.5mg PO BID NSR on monitor Carvedilol continued as above (4) Vitamin D deficiency: Held Vitamin D for elevated Ca, improved. continued at discharge (5) COPD (chronic obstructive pulmonary disease): This does not appear to be COPD exacerbation at this time however still with O2 requirement (chronically on 3L) Repeat CXR with improvement Pt CO2 retention (resolved with dose of diamox) and titration of oxygen down 2step prior to d/c --1 liter at rest (dropped to 87%) 2 liters with ambulation. this should help w CO2 retention as well (6) Diabetes mellitus: Continue Lantus 15units at night -NovoLog sliding scale with meals and at bedtime -Check hemoglobin A1c in the morning, previous was 6.9% in 03/2020 --> repeat A1c down to 6.4 - BG AC/HS BSG acceptable (7) Dyslipidemia: Continue Lovastatin 40 mg daily (8) Secondary hyperparathyroidism of renal origin: Held her Calcitriol and vitamin D until her volume status is corrected (prior Vit D June) Improved and resumed at discharge (9) CAD (coronary artery disease): With stable angina, history of CABG - Continued recently started Ranexa and NTG PRN On admission 0.053 with mild elevations. No CP reported. ECHO as above -- suspect secondary to demand from volume overload and iron deficiency. Venofer x 2 during admission with continued PO supplementation at d/c. No juanito bleeding observed No CP reported (10) Anemia: Likely secondary to chronic disease Checked iron studies- Iron 40, trans % sat low at 7 --> started 325mg iron daily at discharge but she did get 2 doses of Venofer while inpatient which could certainly be contributing to her SOB w exertion as well as her No reported bleeding/hematochezia/melena Hgb stable (11) Hypokalemia: secondary to diuresis as above -- resolved with supplementation (12) CKD (chronic kidney disease), stage III: Follow volume status overnight --> slightly dehydrated and held AM lasix for day of discharge and to resume tomorrow. Follow up with PCP/CHF clinic as above (13) DVT prophylaxis: Apixaban as above PT/OT -- recs for return home w family support Discharged home with son. Updated daughter Amanda on the phone prior to d/c regarding medication changes Total Time Total Time Spent Total Time Spent (In Minutes): 70 Discharge Plan Discharge Items Patient Disposition: Home - Self-Care Reason For Visit: HEART FAILURE Discharge Diagnosis: You have been hospitalized for an acute medical problem. During your stay at [facility], we have made an effort to correct the problem that brought you to the hospital while keeping you as comfortable as possible. Medications were used to bring your condition under control and your discharge instructions will include directions for any medications you should take after leaving the hospital. Please make sure you see your Primary Care Provider as part of your follow up plan. Activity: Resume your previous activity Non-emergency contact: Primary Care Provider Call non-emergency contact if: you have any medication questions, your symptoms worsen and your pain is not controlled Follow-up/Referrals: Crystal Mcguire CRNP [Primary Care Provider] - 08/25/20 10:30 am Lesa Salinas PA-C [Physician Law Firm Partner] - 08/27/20 3:00 pm (Cystoscopy appt) Lesa Alford PA-C [Physician Law Firm Partner] - 08/18/20 10:30 am Diet: Heart Healthy Addtl Attending Provider Instructions: You have been hospitalized for shortness of breath and found to be in heart failure. This could have been due to a missed dose of Lasix or need for additional dosing. You were seen by the "CHF" (congestive heart failure) clinic provider Lesa Alford while in the hospital and will need to have follow up with her for closer monitoring and diuretic dosing. Please continue to monitor your weights daily to determine if you need additional doses of your furosemide for any weight gain >3lb in 24 hours or 5lb in week period of time. An ECHO (ultrasound) of your heart was performed and this did show some narrowing of your aortic valve which is even more imprortant reason to keep your volume status in a good range to prevent overload which can easily be done in a patient with aortic stenosis (and likely why missing just even the one dose caused you to be in heart failure) and you should continue cardiology follow up with Dr Breaux to continue to monitor this and optimize medical management. As discussed, your hemoglobin was on the lower side and iron studies were checke d which showed iron deficiency. You were given IV iron while in the hospital and you should continue daily dosing for the next 2-3 months to help build up your stores. This will also help with your shortness of breath. PLEASE NOTE ORAL IRON CAN CAUSE CONSTIPATION AND YOU CAN USE OVER THE COUNTER MIRALAX AND COLACE TO HELP GET YOUR BOWELS MOVING IF THIS OCCURS. Iron is also better absorbed if you have Vitamin C and may want to consider small amount of orange juice with your iron to help absorb better. Regarding your chronic oxygen therapy, as discussed, it was likely you were utilizing more oxygen than you need which can cause us to hold on to carbon dioxide and actually depresses your respiratory drive. A test was done prior to discharge to see what your actual needs are, and it was determined you should only be utilizing ONE LITER at rest, and TWO LITERS with activity to help this. Please continue to monitor your oxygen saturations at home and alert your PCP if drops lower than 88/89%. You should follow up with your primary care provider in the next 1-2 weeks to monitor your symptoms/progress. Please return to the emergency department with any chest pain, increased shortness of breath, or for any other symptoms that are concerning for you. It has been a pleasure being a part of the medical team providing for you while you have been in the hospital. Take care! Addtl Steamfitter Supervisor Provider Instructions: Call 911 and go to the Emergency Room if: * You have tightness or pain in your chest that does not go away with rest or Nitroglycerin * You are very short of breath even with rest Call your doctor if any of the following symptoms or problems start or get worse: * Shortness of breath or difficulty breathing * Wake up at night short of breath * Chest pain * Cough * Swelling of your hands, fee, or legs * More fatigued or tired with your normal activity * Palpitations - sudden fast heart beats WEIGHT * Weigh yourself every morning after using the bathroom. * Use the same scale. * Wear the same amount of clothing. * Write your weight down on your chart. * Call your doctor if you gain more than 2-3 pounds in 1-2 days. MEDICATIONS * Use this discharge instruction sheet for instructions. * Take your medications at the time your doctor ordered. * Do not skip a dose of your medicines. * If you miss a dose of medicine, take as soon as possible, but DO NOT DOUBLE A DOSE. * Read your medicine information when you get home. * Know all of the side effects of your medicine. * Call your doctor's office if you have any side effects. * Be sure all of your doctors know what medicine and herbs you take (including cold, flu, and herbal medicine). * Pain Medicine: If you do not get relief from your pain, please call your doctor for help. Take the following with you to your follow-up doctor appointments: * Weight Chart * Medication List * List of questions Do not drink excessive alcohol, beer or wine. Pending Studies at Discharge: No Stand-Alone Forms: My [employer], Smoking Cessation Medications and DC Order Prescriptions: New ferrous sulfate 325 mg (65 mg iron) tablet 325 mg PO DAILY Qty: 30 RF: 0 Continued Combivent Respimat 20-100 mcg/actuation Mist 1 puff INHALATION QID PRN (Reason: Wheezing) Qty: 0 RF: 0 valsartan 40 mg tablet 40 mg PO BID Qty: 180 RF: 3 furosemide 20 mg tablet 20 mg PO QAM Qty: 30 RF: 8 gabapentin [Neurontin] 400 mg capsule 400 mg PO HS Qty: 30 RF: 8 ipratropium-albuterol 0.5 mg-3 mg(2.5 mg base)/3 mL solution for nebulization 3 ml INHALATION Q4H PRN (Reason: Wheezing) Qty: 180 RF: 8 lovastatin 40 mg tablet 40 mg PO HS Qty: 90 RF: 3 Eliquis 2.5 mg tablet 2.5 mg PO BID Qty: 60 RF: 10 calcium carbonate-vitamin D3 [Os-Emile 500 + D3] 500 mg(1,250mg) -200 unit t ablet 1 tab PO QAM Qty: 0 RF: 0 (DME) portable O2 concentrator See Rx Instructions .Route .MEDSUPPLY Qty: 1 RF: 0 calcitriol 0.25 mcg capsule 0.25 mcg PO 3XWK Qty: 14 RF: 0 (DME) pen needle, diabetic [1st Tier Unifine Pentips] 31 gauge x 5/16" needle See Rx Instructions .ROUTE .MEDSUPPLY Qty: 100 RF: 4 carvedilol 12.5 mg tablet 12.5 mg PO BID Qty: 60 RF: 2 ranolazine 500 mg tablet extended release 12 hr 500 mg PO BID Qty: 60 RF: 2 nitroglycerin 0.4 mg tablet, sublingual 0.4 mg sublingual Q5M PRN (Reason: chest pain) Qty: 20 RF: 2 aspirin 81 mg Tablet,Delayed Release (Dr/Ec) 81 mg PO QAM RF: 0 Lantus Solostar U-100 Insulin 100 unit/mL (3 mL) insulin pen 15 unit SQ HS RF: 0 gabapentin 300 mg capsule 300 mg PO HS RF: 0 pantoprazole 40 mg tablet,delayed release (DR/EC) 40 mg PO QAM RF: 0 sertraline 50 mg tablet 50 mg PO QAM RF: 0 Discharge Orders: Discharge Order (Routine); Ordered 08/12/20 Ordered By: Myrtle Rincon/Other Patient Handouts: Managing Type 2 Diabetes, A1C Admission Data Admit Date/Time: 08/11/20 14:08 Attending Provider: Doyle Sung Admit Provider: Evgeny Negron Primary Care Provider: Crystal Mcguire Other Providers: Nicki Teague ; Lesa Alford Other Interventions: Discharge Summary Assessment (RN) Last Done: 08/12/20 13:00 Coding Level of Care Code D/C Day Management >30 mins Diagnoses Acute exacerbation of CHF (congestive heart failure) I50.9 Heart failure type: unspecified Chronic combined systolic and diastolic CHF (congestive heart failure) I50.42 Paroxysmal atrial fibrillation I48.0 Vitamin D deficiency E55.9 COPD (chronic obstructive pulmonary disease) J44.9 COPD type: unspecified COPD Diabetes mellitus E11.9; Z79.4 Diabetes mellitus complication status: without complication Diabetes mellitus assisted insulin use: with assisted use Diabetes mellitus type: type 2 Dyslipidemia E78.5 Secondary hyperparathyroidism of renal origin N25.81 CAD (coronary artery disease) I25.708 Associated angina: with stable angina Coronary Disease-Associated Artery/Lesion type: bypass graft [place] vs. transplanted heart: [place] heart Anemia D64.9 Hypokalemia E87.6 CKD (chronic kidney disease), stage III N18.30 Chronic kidney disease stage 3 subtype: unspecified whether 3a or 3b DVT prophylaxis Z29.9
--- NOTE | 2020-08-12 16:35 | Heart Failure Progress Note ---
Date of Service August 12, 2020 Assessment & Plan (1) Acute exacerbation of CHF (congestive heart failure): (2) Chronic combined systolic and diastolic CHF (congestive heart failure): (3) CKD (chronic kidney disease), stage III: (4) Cardiac pacemaker: (5) CAD (coronary artery disease): (6) Paroxysmal atrial fibrillation: Patient has been referred to the heart failure program by the primary service. This is her second heart failure related admission in 2 months. Etiology likely secondary to non-adherence and dietary indiscretion. Anemia may contributing factor to her dyspnea. Echocardiogram now with mid-range EF and moderate to severe aortic stenosis. Echocardiogram was reviewed after she was discharged- will further discuss these findings and optimize her treatment at her follow up. Continue Carvedilol and Valsartan. Would consider transitioning Valsartan to Entresto as per guideline based recommendations. She appears near euvolemic on exam today. Symptoms are improving. Patient is on supplemental O2. 2Step repeated today with 1 L at rest and 2L with activity. Kidney function and electrolytes are stable. Continue Lasix 20 mg po daily at discharge. She is not currently doing daily standing weights at home. Would recommend this on discharge. Increase to 40 mg daily for 2+ lb weight gain overnight or 5+lb in 1 week. Recommend low sodium diet. Strict I&Os while inpatient. Daily STANDING weights while inpatient. Discharge weight [address] Breaux review echo and determine if she should be referred to TAVR. Will also discuss with the patient to see if she is interested in surgical intervention if offered. Disposition: Will continue to follow during hospitalization. Will arrange for close outpatient follow up with the heart failure program. 08/18/20 at 10:30 (7) Aortic stenosis: Admission and Anticipated Discharge Date Admission Date: August 11, 2020 Subjective Patient reports shes feeling well today. She is laying almost flat at the time of my visit and is breathing comfortably. She had a 2 step today and is able to wean down on her O2 requirement. She denies lower extremity edema. She denies chest pain or palpitations. Physical Exam Physical Exam: Constitutional: Alert, oriented, in no acute distress HEENT: Head is atraumatic and normocephalic. EOMs intact. Sclera anicteric. Face is symmetric. No perioral cyanosis. Mucous membranes moist. Neck: Supple, no JVD Pulmonary: Normal respiratory effort, faint crackles at the bases. Cardiac: Regular rate and rhythm. Normal S1 and S2, no gallops, no rubs. + systolic murmur. Chest: Palpable left subclavian device Extremities: 2+ radial pulses bilaterally. 2+ posterior tibialis pulses bilaterally. No pitting edema. No cyanosis or clubbing. Abdomen: Normal bowel sounds, soft, non-tender, no abdominal mass palpated Skin: Normal skin color, turgor, and pigmentation, no rash, no skin lesions Neurological: Patient is awake, alert, and oriented. Pleasant and cooperative. Answers questions appropriately. Speech is clear. Normal movement in all 4 extremities. Gait pattern not assessed. Results & Data ([facility]) Vital Signs (Past 12 Hours) Vital Signs Temp Pulse Pulse Pulse Pulse Pulse Pulse 08/12/20 13:00 97.7 F 71 08/12/20 11:09 72 71 72 72 62 08/12/20 11:07 97.7 F 71 08/12/20 08:42 98.1 F 72 08/12/20 07:21 97.7 F 69 Resp Resp Resp Resp Resp Resp BP 08/12/20 13:00 17 163/66 H 08/12/20 11:09 18 24 22 24 18 08/12/20 11:07 17 163/66 H 08/12/20 08:42 20 147/66 H 08/12/20 07:21 16 159/66 H Pulse Ox Pulse Ox Pulse Ox Pulse Ox Pulse Ox Pulse Ox 08/12/20 13:00 96 08/12/20 11:09 91 94 87 L 93 86 L 08/12/20 11:07 96 08/12/20 08:42 95 08/12/20 07:21 97 PG Care Time/CCT Total # of Minutes Spent Total Time Spent with Patient: Total time spent is greater than 50% in coordination of care (as documented) at patient's floor/unit and/or counseling patient: Heart Failure Data/Metrics Heart Failure Type: Diastolic Ejection Fraction: 40-45% NYHA classification: II: Sx w/ usual activity Risk Stratification: B Dry Weight (kg): 105 Evidenced Based Beta Dano Therapy Beta Dano Therapy: Yes Beta Dano Name: Carvedilol Beta Dano Target Therapy: Not at Target Therapy GILMAR/ARB/ARNI Therapy GILMAR/ARB/ARNI Therapy: Yes GILMAR/ARB/ARNI Name: Valsartan GILMAR/ARB/ARNI Target Therapy: Not at Target Therapy Coding Level of Care Code 39552 Subseq Hosp Care Lvl 3 Diagnoses Acute exacerbation of CHF (congestive heart failure) I50.9 Heart failure type: unspecified Chronic combined systolic and diastolic CHF (congestive heart failure) I50.42 CKD (chronic kidney disease), stage III N18.30 Chronic kidney disease stage 3 subtype: unspecified whether 3a or 3b Cardiac pacemaker Z95.0 CAD (coronary artery disease) I25.708 Coronary Disease-Associated Artery/Lesion type: bypass graft [place] vs. transplanted heart: [place] heart Associated angina: with stable angina Paroxysmal atrial fibrillation I48.0 Aortic stenosis I35.0 (1) Acute exacerbation of CHF (congestive heart failure) Heart failure type: unspecified Qualified Code(s): I50.9 - Heart failure, unspecified (2) CKD (chronic kidney disease), stage III Chronic kidney disease stage 3 subtype: unspecified whether 3a or 3b Qualified Code(s): N18.30 - Chronic kidney disease, stage 3 unspecified (3) CAD (coronary artery disease) Coronary Disease-Associated Artery/Lesion type: bypass graft [place] vs. transplanted heart: [place] heart Associated angina: with stable angina Qualified Code(s): I25.708 - Atherosclerosis of coronary artery bypass graft(s), unspecified, with other forms of angina pectoris
== END 2020-08-12 15:03 | disposition home or self-care (01) | DRG 291 ==
LOC: ED 13:35 → 2N 13:35 → SUATTDRO 18:36 → 2N 20:51

== ENCOUNTER 2020-11-05 17:24 | Inpatient (IN) ==
[2020-11-05] MEDS ORDERED: dexAMETHasone**PF** 10 MG/ML VIAL IV ONE (18:06)
--- NOTE | 2020-11-05 18:09 | Emergency Department Note ---
Impression & Plan Hypoxia, Cough ED Provider Note NAME: TIM GATES AGE: 85 SEX: F : 1935 ARRIVES VIA: Ambulance INFORMANT: Patient ED PROVIDER(S): Latrell Osorio DO CHIEF COMPLAINT: Shortness of breath HPI: Patient is an 85-year-old who presents to the ER for cough shortness of breath. She has a history of aortic stenosis, anticoagulated on Eliquis, A. fib, and cardiomyopathy. She notes she significantly short of breath with up and moving around. Symptoms started 2 weeks ago with cough and congestion. She admits to a sore throat. No runny nose. She is vaccinated for Covid. Shortness of breath has been getting worse. She does have a history of COPD. Denies any belly pain, nausea, vomiting, or diarrhea. No dysuria, urgency, or frequency. No other exacerbating or remitting factors. ROS: See above HPI for pertinent positives & negatives. A total of 10 systems reviewed and were otherwise negative. PAST MEDICAL HISTORY:See Below PAST SURGICAL HISTORY:See Below FAMILY HISTORY:See Below SOCIAL HISTORY:See Below HOME MEDICATIONS:See Below ALLERGIES:See Below VITALS:See Below PHYSICAL EXAMINATION: GENERAL: Sitting up in bed, alert, disheveled, slightly ill-appearing EYE EXAM: normal conjunctiva. OROPHARYNX: no exudate, no erythema, lips, buccal mucosa, and tongue normal and mucous membranes are moist NECK: supple, no nuchal rigidity, no adenopathy, non-tender LUNGS: Wheezing bilaterally. Normal chest wall mechanics HEART: no murmurs, S1 normal and S2 normal ABDOMEN: abdomen soft, non-tender, normo-active bowel sounds, no masses, no rebound or guarding. UPPER EXTREMITIES: upper extremities are grossly normal. LOWER EXTREMITIES: No pitting edema. Calves are equal bilateral NEURO EXAM: Normal sensorium, cranial nerves II-XII grossly intact, normal speech, no gross weakness of arms, no gross weakness of legs. MEDICAL DECISION MAKING: Patient is an 85-year-old Female whose shots are up-to-date who presents to the ER for shortness of breath and a cough which has been getting worse over the past 2 weeks. Patient denies fever. IV was established and blood work pain. On apixaban. Labs show no significant leukocytosis. My knee DM PE with a creatinine 1.5. Bilirubin, LFTs, troponin was unremarkable. Lipase normal. Covid neg. Chest x-ray was clean. Patient was given neb treatment as well as steroids. Discussed with the hospitalist for further evaluation. Triage Nursing notes reviewed. Limited review of prior medical records performed Vital Signs: reviewed and remarkable for hypoxic Differential diagnosis: Differential diagnoses includes but is not limited to pneumonia, bronchitis, COPD/Asthma exacerbation, pneumothorax, pulmonary embolism, congestive heart failure, acute coronary syndrome ER treatment provided: See below Diagnostics interpreted by me: ECG: AV paced rate of 63 Left axis QTC 499 T wave inversions in septal leads as well as the high lateral Cardiac Monitoring: An order was placed for continuous cardiac monitoring. The monitor shows a rate of 72 with sinus rhythm. Laboratory studies: As stated above and show below. Imaging studies: Portable AP upright 1 view the chest shows no focal infiltrate or pneumothorax Consultation(s): Discussed with [facility] for further evaluation Procedures: none Past Med/Surg History Medical History Abscess of hand, right Acute UTI (urinary tract infection) Allergy to multiple antibiotics Anemia Cardiac pacemaker for complete hear block Cellulitis of right hand Cerebellar infarct Chronic renal disease, stage III Depression Diabetes mellitus Extremity atherosclerosis with intermittent claudication Fracture of pubic ramus Gait instability History of chest pain Hypertension Lower abdominal pain Secondary hyperparathyroidism of renal origin Solitary pulmonary nodule Transient ischemic attack (TIA) Vitamin D deficiency Surgical History History of nasal surgery Hx of carpal tunnel repair Family History Other Family history non-contributory Social History Smoking Status: Former smoker Second Hand Exposure: No; Hx Alcohol Use: No Hx Substance Use: No Preferred Language: Kenyan Communication Ability: Effective Visual Impairment: No 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 Beliefs That Will Affect Care: None marital status: / Current Living Situation: Alone Other Information That Helps Us Care for You: No Feels Safe at Home: Yes Safety Concerns: Feels Safe At This Time Childhood Exposure to Second-Hand Smoke: Yes caffeine: Yes Dental Care, Regularly: No Physical Activity Frequency: 1-2 Times per Week Seatbelt Use: always Sunscreen Use: No Assistive Devices: Glasses, Oxygen - Continuous and Walker Allergies Allergies Allergy/AdvReac Type Severity Reaction Status Date / Time tamsulosin Allergy Severe SHORTNESS Verified 11/05/20 15:55 OF BREATH butalbital Allergy Intermediate SHORTNESS Verified 11/05/20 15:55 OF BREATH nitrofurantoin Allergy Unknown Unknown Verified 11/05/20 15:55 [From Macrobid] Cephalosporins AdvReac Severe TONGUE Verified 11/05/20 15:55 SWELLING WITH KEFLEX- tolerating keflex 03/16/20 levetiracetam AdvReac Intermediate RASH Verified 11/05/20 15:55 morphine AdvReac Intermediate hallucinati Verified 11/05/20 15:55 ons Sulfa (Sulfonamide AdvReac Unknown "SULFA Verified 11/05/20 15:55 Antibiotics) DRUGS" - UNKNOWN Home Meds Home Medications Medication Instructions Recorded Confirmed ipratropium 20 mcg-albuterol 100 1 puff INHALATION QID PRN #0 05/08/14 11/05/20 mcg/actuation mist for inhalation (Combivent Respimat) aspirin 81 mg tablet,delayed 81 mg PO QAM 10/01/18 11/05/20 release calcium carbonate 500 mg (1,250 1 tab PO QAM #0 tab 04/09/20 11/05/20 mg)-vitamin D3 200 unit tablet (Os-Emile 500 + D3) insulin glargine 100 unit/mL (3 15 unit SQ HS 06/04/20 11/05/20 mL) subcutaneous pen (Lantus Solostar U-100 Insulin) gabapentin 300 mg capsule 300 mg PO HS 08/10/20 11/05/20 sertraline 50 mg tablet 50 mg PO QAM 08/10/20 11/05/20 methenamine hippurate 1 gram tablet 1 g PO BID 08/25/20 11/05/20 pantoprazole 40 mg tablet,delayed 40 mg PO DAILY 08/25/20 11/05/20 release Previous Rx's Medication Instructions Recorded ipratropium 0.5 mg-albuterol 3 mg 3 ml INHALATION Q4H PRN #180 ml 12/26/19 (2.5 mg base)/3 mL nebulization soln lovastatin 40 mg tablet 40 mg PO HS #90 tab 01/23/20 apixaban 2.5 mg tablet (Eliquis) 2.5 mg PO BID #60 tab 04/03/20 carvedilol 12.5 mg tablet 12.5 mg PO BID #60 tab 07/24/20 nitroglycerin 0.4 mg sublingual 0.4 mg SUBLINGUAL Q5M PRN #20 tab 07/24/20 tablet ferrous sulfate 325 mg (65 mg 325 mg PO DAILY #30 tab 08/11/20 iron) tablet furosemide 20 mg tablet 20 mg PO QAM #30 tab 09/17/20 calcitriol 0.25 mcg capsule 0.25 mcg PO 3XWK #14 cap 10/02/20 gabapentin 400 mg capsule 400 mg PO HS #30 cap 10/08/20 (Neurontin) levofloxacin 250 mg tablet 250 mg PO DAILY #7 tab 11/02/20 prednisone 20 mg tablet 20 mg PO DAILY #7 tab 11/02/20 valsartan 40 mg tablet 40 mg PO BID #180 tab 11/03/20 Results & Data (ED) Vital Signs Vital Signs - 24 hr 11/05/20 17:31 11/05/20 17:32 11/05/20 17:48 Temperature 36.4 C L Temperature Source Oral Pulse Rate 68 70 Pulse Rate [Apical] Pulse Rate from SpO2 Sensor 68 Respiratory Rate 19 13 Respiratory Effort / Characteristics Non-Labored Respiratory Depth Normal Respiratory Pattern Regular Blood Pressure 162/107 H 162/107 H Blood Pressure Mean 125 125 Blood Pressure Position Sitting Pulse Oximetry 95 91 84 L Oxygen Delivery Method Room Air Room Air Oxygen Flow Rate Sepsis Recent Fever Within 48 Hours No Sepsis New/Unexplained Change in Mental Status N/A Sepsis Action Taken by Nursing No Action Required 11/05/20 18:00 11/05/20 18:30 11/05/20 19:00 Temperature Temperature Source Pulse Rate 67 62 61 Pulse Rate [Apical] Pulse Rate from SpO2 Sensor 66 62 61 Respiratory Rate 16 17 15 Respiratory Effort / Characteristics Respiratory Depth Respiratory Pattern Blood Pressure 149/70 H 152/92 H 165/78 H Blood Pressure Mean 96 112 107 Blood Pressure Position Pulse Oximetry 90 94 91 Oxygen Delivery Method Room Air Oxygen Flow Rate Sepsis Recent Fever Within 48 Hours Sepsis New/Unexplained Change in Mental Status Sepsis Action Taken by Nursing 11/05/20 19:20 11/05/20 19:31 09/23/21 20:00 Temperature Temperature Source Pulse Rate 67 67 Pulse Rate [Apical] 62 Pulse Rate from SpO2 Sensor 67 66 Respiratory Rate 18 15 20 Respiratory Effort / Characteristics Spontaneous Respiratory Depth Respiratory Pattern Blood Pressure 136/77 150/66 H Blood Pressure Mean 96 94 Blood Pressure Position Pulse Oximetry 92 92 92 Oxygen Delivery Method Room Air Room Air Oxygen Flow Rate 2 Sepsis Recent Fever Within 48 Hours Sepsis New/Unexplained Change in Mental Status Sepsis Action Taken by Nursing Laboratory Data Result diagrams: 11/05/20 18:15 11/05/20 20:39 Lab Results 11/05/20 11/05/20 11/05/20 Range/Units 18:15 18:15 18:15 WBC 7.88 (4.8-10.8) K/uL RBC 4.17 L (4.2-5.4) M/uL Hgb 11.9 L (12.0-16.0) g/dL Hct 37.6 (37-47) % MCV 90.2 (80-100) fL MCH 28.5 (25-34) pg MCHC 31.6 L (32-36) g/dL RDW Std Deviation 58.1 H (36.4-46.3) fL RDW Coeff of Carlos 17.6 H (11.5-14.5) % Plt Count 280 (130-400) K/uL MPV 11.0 H (7.4-10.4) fL Immature Gran % (Auto) 0.5 % Neut % (Auto) 87.0 % Lymph % (Auto) 11.2 % [place]enton % (Auto) 1.3 % Eos % (Auto) 0.0 % Baso % (Auto) 0.0 % Neut # (Auto) 6.86 H (1.4-6.5) K/uL Lymph # (Auto) 0.88 L (1.2-3.4) K/uL Benton # (Auto) 0.10 L (0.11-0.59) K/uL Eos # (Auto) 0.00 (0-0.5) K/uL Baso # (Auto) 0.00 (0-0.2) K/uL Immature Gran # (Auto) 0.04 H (0.00-0.02) K/uL APTT 28.4 (21.0-31.0) Seconds PTT Ratio 1.1 Sodium 136 (136-145) mmol/L Potassium (3.5-5.1) mmol/L Chloride 100 (98-107) mmol/L Carbon Dioxide 29 (21-32) mmol/L Anion Gap 7.0 (3-11) BUN 34 H (7-18) mg/dl Creatinine 1.50 H (0.6-1.2) mg/dl Est Cr Clr Drug Dosing 19.0 ml/min Est GFR ( Amer) 35.9 ml/min Est GFR (Non-Af Amer) 31.0 ml/min BUN/Creatinine Ratio 22.9 H (10-20) Glucose 184 H (70-99) mg/dl Calcium 9.5 (8.5-10.1) mg/dl Total Bilirubin 0.3 (0.2-1) mg/dl AST (15-37) U/L ALT 20 (12-78) U/L Alkaline Phosphatase 70 (45-117) U/L Troponin I < 0.015 (0-0.045) ng/ml Total Protein 8.2 (6.4-8.2) gm/dl Albumin 3.5 (3.4-5.0) gm/dl Globulin 4.7 H (2.5-4.0) gm/dl Albumin/Globulin Ratio 0.7 L (0.9-2) Lipase 147 (73-393) U/L COVID-19 Eval Order SARS-CoV-2 (PCR) (Negative) 11/05/20 11/05/20 Range/Units 18:34 18:34 WBC (4.8-10.8) K/uL RBC (4.2-5.4) M/uL Hgb (12.0-16.0) g/dL Hct (37-47) % MCV (80-100) fL MCH (25-34) pg MCHC (32-36) g/dL RDW Std Deviation (36.4-46.3) fL RDW Coeff of Carlos (11.5-14.5) % Plt Count (130-400) K/uL MPV (7.4-10.4) fL Immature Gran % (Auto) % Neut % (Auto) % Lymph % (Auto) % [place] % (Auto) % Eos % (Auto) % Baso % (Auto) % Neut # (Auto) (1.4-6.5) K/uL Lymph # (Auto) (1.2-3.4) K/uL Benton # (Auto) (0.11-0.59) K/uL Eos # (Auto) (0-0.5) K/uL Baso # (Auto) (0-0.2) K/uL Immature Gran # (Auto) (0.00-0.02) K/uL APTT (21.0-31.0) Seconds PTT Ratio Sodium (136-145) mmol/L Potassium (3.5-5.1) mmol/L Chloride (98-107) mmol/L Carbon Dioxide (21-32) mmol/L Anion Gap (3-11) BUN (7-18) mg/dl Creatinine (0.6-1.2) mg/dl Est Cr Clr Drug Dosing ml/min Est GFR ( Amer) ml/min Est GFR (Non-Af Amer) ml/min BUN/Creatinine Ratio (10-20) Glucose (70-99) mg/dl Calcium (8.5-10.1) mg/dl Total Bilirubin (0.2-1) mg/dl AST (15-37) U/L ALT (12-78) U/L Alkaline Phosphatase (45-117) U/L Troponin I (0-0.045) ng/ml Total Protein (6.4-8.2) gm/dl Albumin (3.4-5.0) gm/dl Globulin (2.5-4.0) gm/dl Albumin/Globulin Ratio (0.9-2) Lipase (73-393) U/L COVID-19 Eval Order Covid19 at [facility] SARS-CoV-2 (PCR) NEGATIVE (Negative) Administered Medications Albuterol (Albut/Ipratrop 3mg/0.5mg Neb 3 Ml Vial) 3 ml INH Q6 TAMMIE Stop: 12/06/20 00:00 Last Admin: 11/05/20 23:58 Dose: 3 ml Documented by: [id number] Apixaban (Apixaban 2.5 Mg Tab) 2.5 mg PO BID TAMMIE Stop: 12/05/20 22:19 Last Admin: 11/05/20 23:06 Dose: 2.5 mg Documented by: [id number] Carvedilol (Carvedilol 12.5 Mg Tab) 12.5 mg PO BID TAMMIE Stop: 12/05/20 22:19 Last Admin: 11/05/20 23:06 Dose: 12.5 mg Documented by: [id number] Gabapentin (Gabapentin 400 Mg Cap) 400 mg PO HS TAMMIE Stop: 12/05/20 22:19 Last Admin: 11/05/20 23:06 Dose: 400 mg Documented by: [id number] Lactated Ringer's (Lr) 1,000 mls @ 80 mls/hr IV .[id number] ONE Stop: 11/06/20 08:08 Last Admin: 11/05/20 19:53 Dose: 80 mls/hr Documented by: [id number] Insulin Aspart (Insulin Aspart 100 Units/Ml 3 Ml Pen) 0 units SC ACHS TAMMIE Stop: 12/05/20 22:19 Last Admin: 11/05/20 23:09 Dose: 6 units Documented by: [id number] Cosigned by: [id number] Insulin Glargine (Insulin Glargine Solostar 100 Units/Ml 3 Ml Pen) 15 units SQ HS TAMMIE Stop: 12/05/20 22:19 Last Admin: 11/05/20 23:11 Dose: 15 units Documented by: [id number] Cosigned by: [id number] Lovastatin (Lovastatin 20 Mg Tab) 40 mg PO HS TAMMIE Stop: 12/05/20 22:19 Last Admin: 11/05/20 23:06 Dose: 40 mg Documented by: [id number] Methylprednisolone (Methylprednisolone 40 Mg/Ml Vial) 40 mg IV Q12 TAMMIE Stop: 12/05/20 20:59 Last Admin: 11/05/20 21:05 Dose: 40 mg Documented by: [id number] Discontinued Medications Albuterol (Albuterol 0.083% Nebu Soln 3 Ml Vial) 2.5 mg NEB NOW STA Stop: 11/05/20 19:08 Last Admin: 11/05/20 19:20 Dose: 2.5 mg Documented by: [id number] Azithromycin (Azithromycin 250 Mg Tab) 500 mg PO NOW ONE Stop: 11/05/20 22:21 Last Admin: 11/05/20 23:06 Dose: 500 mg Documented by: [id number] Dexamethasone Sodium Phosphate (DexamethasonePf 10 Mg/Ml Vial) 6 mg IV NOW ONE Stop: 11/05/20 18:07 Last Admin: 11/05/20 18:30 Dose: 6 mg Documented by: [id number] Imaging Data Radiologist's Impression: Chest X-Ray 11/05/20 18:06 XR chest 1V portable HISTORY: 85 years-old Female Chest Pain . Acute atypical chest pain COMPARISON: Chest radiograph 11/03/2020 TECHNIQUE: Portable AP view of the chest FINDINGS: Cardiac silhouette is upper limits of normal in size. Prior median sternotomy with cardiac valvular prosthesis. Left subclavian pacer. No pneumothorax. Emphysema. Minimal bibasilar atelectasis. Trace pleural effusions with chronic interstitial coarsening. Degenerative changes of the shoulders and spine. Chronic widening of the right AC joint with elevation of the distal right clavicle. IMPRESSION: 1. Emphysema without acute process. 2. Unchanged trace pleural effusions. ACT 112: Negative or not required by law. The above report was generated using voice recognition software. It may contain grammatical, syntax or spelling errors. Electronically signed by: Joseph Alcantar M.D. 11/05/2020 6:31 PM Discharge Plan Visit Data Chief Complaint: Shortness of Breath/Dyspnea ED Provider: Latrell Osorio Discharge Problem: Hypoxia, Cough Patient Disposition: Admitted As Inpatient Discharge Instructions Interventions: ED Discharge Assessment Last Done: 11/05/20 21:20
[2020-11-05 18:24] LABS: Hematocrit (blood only) 37.6 % (37-47); Hemoglobin 11.9 g/dL (12.0-16.0); Immature Granulocytes # (auto) 0.04 K/uL (0.00-0.02); Immature Granulocytes % (auto) 0.5 %; Lymphocytes # (auto) 0.88 K/uL (1.2-3.4); Lymphocytes % (auto) 11.2 %; Mean Corpuscular Hemoglobin 28.5 pg (25-34); Mean Corpuscular Hgb Conc 31.6 g/dL (32-36); Mean Corpuscular Volume 90.2 fL (80-100); Monocytes % (auto) 1.3 %; Neutrophils # (auto) 6.86 K/uL (1.4-6.5); Platelet Count 280 K/uL (130-400); RDW Coefficient of Variation 17.6 % (11.5-14.5); RDW Standard Deviation 58.1 fL (36.4-46.3); Red Blood Count 4.17 M/uL (4.2-5.4); White Blood Count 7.88 K/uL (4.8-10.8)
--- NOTE | 2020-11-05 18:33 | XRay Report ---
XR chest 1V portable HISTORY: 85 years-old Female Chest Pain . Acute atypical chest pain COMPARISON: Chest radiograph 11/03/2020 TECHNIQUE: Portable AP view of the chest FINDINGS: Cardiac silhouette is upper limits of normal in size. Prior median sternotomy with cardiac valvular p rosthesis. Left subclavian pacer. No pneumothorax. Emphysema. Minimal bibasilar atelectasis. Trace pl eural effusions with chronic interstitial coarsening. Degenerative changes of the shoulders and spine . Chronic widening of the right AC joint with elevation of the distal right clavicle. IMPRESSION: 1. Emphysema without acute process. 2. Unchanged trace pleural effusions. ACT 112: Negative or not required by law. The above report was generated using voice recognition software. It may contain grammatical, syntax o r spelling errors. Electronically signed by: Joseph Alcantar M.D. 11/05/2020 6:31 PM
[2020-11-05 18:35] LABS: Partial Thromboplastin Ratio 1.1; Partial Thromboplastin Time 28.4 Seconds (21.0-31.0)
[2020-11-05 18:55] LABS: Alanine Aminotransferase 20 U/L (12-78); Albumin Globulin Ratio 0.7 (0.9-2); Albumin Level 3.5 gm/dl (3.4-5.0); Alkaline Phosphatase 70 U/L (45-117); BUN Creatinine Ratio 22.9 (10-20); Bilirubin,Total 0.3 mg/dl (0.2-1); Blood Urea Nitrogen 34 mg/dl (7-18); Calcium 9.5 mg/dl (8.5-10.1); Carbon Dioxide 29 mmol/L (21-32); Chloride 100 mmol/L (98-107); Est GFR (African American) 35.9 ml/min; Globulin 4.7 gm/dl (2.5-4.0); Glucose 184 mg/dl (70-99); Lipase 147 U/L (73-393); Sodium 136 mmol/L (136-145); Total Protein 8.2 gm/dl (6.4-8.2); Troponin I < 0.015 ng/ml (0-0.045)
[2020-11-05] MEDS ORDERED: ALBUTEROL 0.083% NEBU SOLN 3 ML VIAL NEB STA (19:07)
[2020-11-05] MEDS ORDERED: LACTATED RINGER'S 1,000 ML IV ONE (19:39)
--- NOTE | 2020-11-05 20:03 | History & Physical Report ---
Date of Service November 05, 2020 Assessment & Plan (1) Bronchitis: Plan: Deep raspy clear secretion productive cough with inspiratory and expiratory wheeze - Continue with nebulizers scheduled - Methylpred 40mg Q12- can readjust based on symptoms - decreased interval as she received Decadron in ER - Deep breathing and coughing assistance - flutter valve - Azithromycin 500mg PO x1 now and then 250mg PO daily - If not improving consider adding Bonfire - WBC 7, NLR7:1, COVID: NEGATIVE (2) COPD (chronic obstructive pulmonary disease): Plan: As above- COPD exacerbation likely related- viral URI - sputum and nasal congestion are clear - no fevers (3) PAM (acute kidney injury): Plan: Pre-renal consistent with decreased oral intake and continuing diuretics - Hold GILMAR and Lasix- can likely restart when improved renal indices - LR 80ml overnight for 1 Liter - Initial labs hemolyzed- pending redraw for K++ and LFT (4) Diabetes mellitus: Plan: In Lantus at home - contiune Lantus - Aspart sliding scale with steroid dosing - CF 20, Ratio 1-10 (5) Neuropathy of both upper extremities: Plan: Continue gabapentin- 400mg tonight with PAM - She is normally on 700mg nightly (6) Anticoagulant long-term use: Plan: On Apixaban- was originally on for afib - since she has had complete HB and Pacer insertion (7) Secondary hyperparathyroidism of renal origin: Plan: Hold her vitamin D and Cholecalciferol for now - continue gentle hydration overnight (8) Chronic combined systolic and diastolic CHF (congestive heart failure): Plan: Appears mildly hypovolemic on exam - no evidence of pulmonary congestion on CXR or physical exam as well - Continue her Carvdilol - ARB and Lasix on hold - trend Renal indices - Continue statin - (9) Aortic stenosis: Plan: As above- follow volume status and renal indicies (10) Cardiac pacemaker: Plan: - Her Pacmaker is AAIR with mode switch to DDR - Appropriate fire and capture- NSR (11) CAD (coronary artery disease): Plan: As above- NTG prn - She was given a trial of Ranolazine 500mg BID in July- not sure if she is continuing to take this as not mentioned in recent notes or medication recs (12) Dyslipidemia: Plan: Continue Lovastin History of Present Illness Primary Care Provider: DAVID Palmer 85 YOF with past medical history of: DM(on Lantus), COPD, Aortic Stenosis, anemia, Afib, CAD with ICM, CABG(22010), Vitamin D deficiency, secondary h yperparathyroidism, CKD III, chronic abdominal pain. Patient came to the emergency room today after being referred by her PCP. She was referred for worsening cough, dyspnea and hypoxia. The patient was originally started on Levaquin as outpatient and 20mg prednisone daily on 11/02. Prior to that the patient has been experiencing cough and dyspnea for approximately 2 weeks that has been getting worse. She has increased use of her inhalers without any benefit. She has a deep raspy cough with nasal congestion with the production of thin clear mucous and inspiratory and expiratory wheezing. She denies any fevers but does endorse feeling more tired with decreased PO intake of food and water. In the EMD the patient was noted to be 88% on room air and was placed on oxygen, she had a CXR that does not show any consolidative process, chronic small effusions and no change from CXR performed yesterday. She was given 6mg IV Decadron in the ED and a nebulizer. The hospitalist service was notified for admission. The patient was just finishing her nebulizer on my examination, but definite improvement with her SPO2 saturation and dyspnea. She continues to have productive cough with wheezing- patient will be admitted for likely bronchitis on top of her COPD. Will place her on Methylprednisone, Scheduled Combivent nebs, and change her ABX over to Azithromycin for anti-inflammatory component. Patient does also have a mild PAM consistent with decrease oral intake. Patient has received her COVID vaccine and her COVID test on admission is: NEGATIVE Allergies Allergy/AdvReac Type Severity Reaction Status Date / Time tamsulosin Allergy Severe SHORTNESS Verified 11/05/20 15:55 OF BREATH butalbital Allergy Intermediate SHORTNESS Verified 11/05/20 15:55 OF BREATH nitrofurantoin Allergy Unknown Unknown Verified 11/05/20 15:55 [From Macrobid] Cephalosporins AdvReac Severe TONGUE Verified 11/05/20 15:55 SWELLING WITH KEFLEX- tolerating keflex 03/16/20 levetiracetam AdvReac Intermediate RASH Verified 11/05/20 15:55 morphine AdvReac Intermediate hallucinati Verified 11/05/20 15:55 ons Sulfa (Sulfonamide AdvReac Unknown "SULFA Verified 11/05/20 15:55 Antibiotics) DRUGS" - UNKNOWN Home Medications Medication Instructions Recorded Confirmed Type ipratropium 20 mcg-albuterol 100 1 puff INHALATION QID PRN #0 05/08/14 11/05/20 History mcg/actuation mist for inhalation (Combivent Respimat) aspirin 81 mg tablet,delayed 81 mg PO QAM 10/01/18 11/05/20 History release ipratropium 0.5 mg-albuterol 3 mg 3 ml INHALATION Q4H PRN #180 ml 12/26/19 0 11/05/20 Rx (2.5 mg base)/3 mL nebulization soln lovastatin 40 mg tablet 40 mg PO HS #90 tab 01/23/20 11/05/20 Rx apixaban 2.5 mg tablet (Eliquis) 2.5 mg PO BID #60 tab 04/03/20 11/05/20 Rx calcium carbonate 500 mg (1,250 1 tab PO QAM #0 tab 04/09/20 11/05/20 History mg)-vitamin D3 200 unit tablet (Os-Emile 500 + D3) insulin glargine 100 unit/mL (3 15 unit SQ HS 06/04/20 11/05/20 History mL) subcutaneous pen (Lantus Solostar U-100 Insulin) carvedilol 12.5 mg tablet 12.5 mg PO BID #60 tab 07/24/20 11/05/20 Rx nitroglycerin 0.4 mg sublingual 0.4 mg SUBLINGUAL Q5M PRN #20 tab 07/24/20 11/05/20 Rx tablet gabapentin 300 mg capsule 300 mg PO HS 08/10/20 11/05/20 History sertraline 50 mg tablet 50 mg PO QAM 08/10/20 11/05/20 History ferrous sulfate 325 mg (65 mg 325 mg PO DAILY #30 tab 08/11/20 11/05/20 Rx iron) tablet methenamine hippurate 1 gram tablet 1 g PO BID 08/25/20 11/05/20 History pantoprazole 40 mg tablet,delayed 40 mg PO DAILY 08/25/20 11/05/20 History release furosemide 20 mg tablet 20 mg PO QAM #30 tab 09/17/20 11/05/20 Rx calcitriol 0.25 mcg capsule 0.25 mcg PO 3XWK #14 cap 10/02/20 11/05/20 Rx gabapentin 400 mg capsule 400 mg PO HS #30 cap 10/08/20 11/05/20 Rx (Neurontin) prednisone 20 mg tablet 20 mg PO DAILY #7 tab 11/02/20 11/05/20 Rx valsartan 40 mg tablet 40 mg PO BID #180 tab 11/03/20 11/05/20 Rx azithromycin 250 mg tablet 250 mg PO HS #4 tab 11/06/20 Rx prednisone 10 mg tablet See Rx Instructions .ROUTE 11/06/20 Rx .COMPLEX #20 tab Past Med/Surg History Medical History Abscess of hand, right Acute UTI (urinary tract infection) Allergy to multiple antibiotics Anemia Cardiac pacemaker for complete hear block Cellulitis of right hand Cerebellar infarct Chronic renal disease, stage III Depression Diabetes mellitus Extremity atherosclerosis with intermittent claudication Fracture of pubic ramus Gait instability History of chest pain Hypertension Lower abdominal pain Secondary hyperparathyroidism of renal origin Solitary pulmonary nodule Transient ischemic attack (TIA) Vitamin D deficiency Surgical History History of nasal surgery Hx of carpal tunnel repair Family History Other Family history non-contributory Social History Smoking Status: Former smoker Second Hand Exposure: No; Hx Alcohol Use: No Hx Substance Use: No Preferred Language: [place] Communication Ability: Effective Visual Impairment: No Limitations 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 Beliefs That Will Affect Care: None marital status: / Current Living Situation: Alone Feels Safe at Home: Yes Childhood Exposure to Second-Hand Smoke: Yes caffeine: Yes Dental Care, Regularly: No Physical Activity Frequency: 1-2 Times per Week Seatbelt Use: always Sunscreen Use: No Assistive Devices: Cane, Oxygen - at Night and Walker Review of Systems Review of Systems: REVIEW OF SYSTEMS: Constitutional: No fever, sweats or chills Eyes: No diplopia, no worsening or blurred vision ENT: (+) difficulty hearing, no trouble swallowing Respiratory: (+) cough, runny nose, sputum, dyspnea at rest or on exertion Cardiovascular: No chest pain, tightness or palpitations Abdomen: No pain, nausea, vomiting, diarrhea or constipation Musculoskeletal: No joint pain, calf pain, swelling Neurologic: No weakness, numbness/tingling, or balance problems Psychiatric: No anxiety or depression Skin: No rash or itch Physical Exam Physical Exam: PHYSICAL EXAM: General: awake, alert, no apparent distress Head: Normocephalic, atraumatic ENT: PERRL, EOMI, no pharyngeal exudate, mucous membranes moist Neuro: AAO x 3, speech clear and appropriate, strength intact bilaterally 5/5, sensation intact and equal all extremities and dermatomes, no pronator drift Chest: equal rise and fall of the chest, tachypneic, inspiratory and expiratory wheeze, deep raspy cough, on 2LNC Cardiac: Regular rate and rhythm, telemetry reviewed, skin warm dry, cap refill <3 seconds, peripheral pulses +2 no JVD, no murmur, trace lower extremity edema GI: NABS x 4 quadrants, soft, nontender to palpation, no rebound, guarding or tenderness : Spontaneously voiding, no pain, no CVA tenderness, Extremities: Normal inspection, no peripheral edema or erythema, calfs nontender to palpation Psych: Normal mood and affect Skin: no rash or erythema Results & Data Results & Data ([facility]) Vital Signs (Past 12 Hours) Vital Signs Temp Pulse Pulse Resp BP Pulse Ox 11/05/20 19:31 67 15 136/77 92 11/05/20 19:20 62 18 92 11/05/20 19:00 61 15 165/78 H 91 11/05/20 18:30 62 17 152/92 H 94 11/05/20 18:00 67 16 149/70 H 90 11/05/20 17:48 84 L 11/05/20 17:32 36.4 C L 70 13 162/107 H 91 11/05/20 17:31 68 19 162/107 H 95 Laboratory Results Abnormal lab results 11/05/20 11/05/20 Range/Units 18:15 18:15 RBC 4.17 L (4.2-5.4) M/uL Hgb 11.9 L (12.0-16.0) g/dL MCHC 31.6 L (32-36) g/dL RDW Std Deviation 58.1 H (36.4-46.3) fL RDW Coeff of Carlos 17.6 H (11.5-14.5) % MPV 11.0 H (7.4-10.4) fL Neut # (Auto) 6.86 H (1.4-6.5) K/uL Lymph # (Auto) 0.88 L (1.2-3.4) K/uL [place] # (Auto) 0.10 L (0.11-0.59) K/uL Immature Gran # (Auto) 0.04 H (0.00-0.02) K/uL BUN 34 H (7-18) mg/dl Creatinine 1.50 H (0.6-1.2) mg/dl BUN/Creatinine Ratio 22.9 H (10-20) Glucose 184 H (70-99) mg/dl Globulin 4.7 H (2.5-4.0) gm/dl Albumin/Globulin Ratio 0.7 L (0.9-2) Diagnostic Findings Chest X-Ray 11/05/20 18:06 XR chest 1V portable HISTORY: 85 years-old Female Chest Pain . Acute atypical chest pain COMPARISON: Chest radiograph 11/03/2020 TECHNIQUE: Portable AP view of the chest FINDINGS: Cardiac silhouette is upper limits of normal in size. Prior median sternotomy with cardiac valvular prosthesis. Left subclavian pacer. No pneumothorax. Emphysema. Minimal bibasilar atelectasis. Trace pleural effusions with chronic interstitial coarsening. Degenerative changes of the shoulders and spine. Chron ic widening of the right AC joint with elevation of the distal right clavicle. IMPRESSION: 1. Emphysema without acute process. 2. Unchanged trace pleural effusions. ACT 112: Negative or not required by law. The above report was generated using voice recognition software. It may contain grammatical, syntax or spelling errors. Electronically signed by: Joseph Alcantar M.D. 11/05/2020 6:31 PM Medications Administered Home Medications ipratropium 20 mcg-albuterol 100 mcg/actuation mist for inhalation (Combivent Respimat) 1 puff INHALATION QID PRN #0 05/08/14 [History Confirmed 11/05/20] aspirin 81 mg tablet,delayed release 81 mg PO QAM 10/01/18 [History Confirmed 11/05/20] ipratropium 0.5 mg-albuterol 3 mg (2.5 mg base)/3 mL nebulization soln 3 ml INHALATION Q4H PRN #180 ml 12/26/19 [Rx Confirmed 11/05/20] lovastatin 40 mg tablet 40 mg PO HS #90 tab 01/23/20 [Rx Confirmed 11/05/20] apixaban 2.5 mg tablet (Eliquis) 2.5 mg PO BID #60 tab 04/03/20 [Rx Confirmed 11/05/20] calcium carbonate 500 mg (1,250 mg)-vitamin D3 200 unit tablet (Os-Emile 500 + D3) 1 tab PO QAM #0 tab 04/09/20 [History Confirmed 11/05/20] insulin glargine 100 unit/mL (3 mL) subcutaneous pen (Lantus Solostar U-100 Insulin) 15 unit SQ HS 06/04/20 [History Confirmed 11/05/20] carvedilol 12.5 mg tablet 12.5 mg PO BID #60 tab 07/24/20 [Rx Confirmed 11/05/20] nitroglycerin 0.4 mg sublingual tablet 0.4 mg SUBLINGUAL Q5M PRN #20 tab 07/24/20 [Rx Confirmed 11/05/20] gabapentin 300 mg capsule 300 mg PO HS 08/10/20 [History Confirmed 11/05/20] sertraline 50 mg tablet 50 mg PO QAM 08/10/20 [History Confirmed 11/05/20] ferrous sulfate 325 mg (65 mg iron) tablet 325 mg PO DAILY #30 tab 08/11/20 [Rx Confirmed 11/05/20] methenamine hippurate 1 gram tablet 1 g PO BID 08/25/20 [History Confirmed 11/05/20] pantoprazole 40 mg tablet,delayed release 40 mg PO DAILY 08/25/20 [History Confirmed 11/05/20] furosemide 20 mg tablet 20 mg PO QAM #30 tab 09/17/20 [Rx Confirmed 11/05/20] calcitriol 0.25 mcg capsule 0.25 mcg PO 3XWK #14 cap 10/02/20 [Rx Confirmed 11/05/20] gabapentin 400 mg capsule (Neurontin) 400 mg PO HS #30 cap 10/08/20 [Rx Confirmed 11/05/20] levofloxacin 250 mg tablet 250 mg PO DAILY #7 tab 11/02/20 [Rx Confirmed 11/05/20] prednisone 20 mg tablet 20 mg PO DAILY #7 tab 11/02/20 [Rx Confirmed 11/05/20] valsartan 40 mg tablet 40 mg PO BID #180 tab 11/03/20 [Rx Confirmed 11/05/20] Active Medications Lactated Ringer's (Lr) 1,000 mls @ 80 mls/hr IV .[id number] ONE Stop: 11/06/20 08:08 Last Admin: 11/05/20 19:53 Dose: 80 mls/hr Documented by: Methylprednisolone (Methylprednisolone 40 Mg/Ml Vial) 40 mg IV Q12 TAMMIE Stop: 12/05/20 20:59 Lactated Ringer's (Lr) 1,000 mls @ 80 mls/hr IV .[id number] ONE Stop: 11/06/20 08:08 Last Admin: 11/05/20 19:53 Dose: 80 mls/hr Documented by: [id number] Discontinued Medications Albuterol (Albuterol 0.083% Nebu Soln 3 Ml Vial) 2.5 mg NEB NOW STA Stop: 11/05/20 19:08 Last Admin: 11/05/20 19:20 Dose: 2.5 mg Documented by: [id number] Dexamethasone Sodium Phosphate (DexamethasonePf 10 Mg/Ml Vial) 6 mg IV NOW ONE Stop: 11/05/20 18:07 Last Admin: 11/05/20 18:30 Dose: 6 mg Documented by: [id number] ECG Additional Comments: Atrial sensed Ventricular paced NSR Code Status & VTE Plan Code Status CODE: DNR/DNI VTE: SCDs, Apixaban Supervising Physician Co-Signing Physician Notes Attending addendum: I have physically seen this patient, have supervised the ANABELLE's activities, and agree with the H&P unless as otherwise noted. Assessment and Plan: COPD exacerbation with bronchitis- Guaifenesin extended release 600 mg p.o. twice daily Methylprednisolone 40 mg IV every 12 hours Azithromycin 5 mg p.o. x1, then 250 mg p.o. daily Duonebs every 4 hours while awake and every 2 hours when necessary. Follow sputum Gram stain and culture PAM- Creatinine 1.50 upon admission, with recent 1.19- Hold furosemide and valsartan LR at 80 mils per hour x1 L Repeat laboratories in a.m. Diabetes mellitus- Continue Lantus 15 units subcu at bedtime Placed on Accu-Cheks before meals and at bedtime with NovoLog coverage per scale Follow sugars closely while on IV steroids Remaining orders and notations as noted PG Care Time/CCT Total # of Minutes Spent Total Time Spent with Patient: Total time spent is greater than 50% in coordination of care (as documented) at patient's floor/unit and/or counseling patient: Coding Level of Care Code 64085 Initial Inpt Care Lvl 3 Diagnoses Bronchitis J40 COPD (chronic obstructive pulmonary disease) J44.9 PAM (acute kidney injury) N17.9 Diabetes mellitus E11.9; Z79.4 Diabetes mellitus complication status: without complication Diabetes mellitus keno terminal operator insulin use: with half-way use Diabetes mellitus type: type 2 Neuropathy of both upper extremities G56.93 Anticoagulant long-term use Z79.01 Secondary hyperparathyroidism of renal origin N25.81 Chronic combined systolic and diastolic CHF (congestive heart failure) I50.42 Cardiac pacemaker Z95.0 CAD (coronary artery disease) I25.708 Associated angina: with stable angina Coronary Disease-Associated Artery/Lesion type: bypass graft [place] vs. transplanted heart: [place] heart Dyslipidemia E78.5 Aortic stenosis I35.0 (1) Diabetes mellitus Diabetes mellitus complication status: without complication Diabetes mellitus keno terminal operator insulin use: with keno terminal operator use Diabetes mellitus type: type 2 Qualified Code(s): E11.9 - Type 2 diabetes mellitus without complications; Z79.4 - USP (current) use of insulin (2) CAD (coronary artery disease) Associated angina: with stable angina Coronary Disease-Associated Artery/Lesion type: bypass graft [place] vs. transplanted heart: [place] heart Qualified Code(s): I25.708 - Atherosclerosis of coronary artery bypass graft(s), unspecified, with other forms of angina pectoris
[2020-11-05 21:40] LABS: BUN Creatinine Ratio 26.4 (10-20); Calcium 9.3 mg/dl (8.5-10.1); Creatinine Clr Calc Pharmacy 20.5 ml/min; Est GFR (African American) 39.4 ml/min
[2020-11-05] MEDS ORDERED: GLUCAGON FOR INJ 1 MG VIAL SQ PRN (22:20)
[2020-11-05] MEDS ORDERED: IPRATROPIUM BROMIDE/ALBUTEROL respimat INH INH PRN (22:20)
[2020-11-05] MEDS ORDERED: NITROGLYCERIN SL 0.4 MG/TAB TAB SL PRN (22:20)
[2020-11-05] MEDS ORDERED: AZITHROMYCIN 250 MG TAB PO ONE (22:20)
[2020-11-05] MEDS ORDERED: POLYETHYLENE (MIRALAX) 17 GM PACK PO PRN (22:20)
[2020-11-05] MEDS ORDERED: LOVASTATIN 20 MG TAB PO SCH (22:20)
[2020-11-05] MEDS ORDERED: GABAPENTIN 400 MG CAP PO SCH (22:20)
[2020-11-05] MEDS ORDERED: INSULIN GLARGINE SOLOSTAR 100 UNITS/ML 3 ML PEN SQ SCH (22:20)
[2020-11-05] MEDS ORDERED: DEXTROSE 50% 50 ML SYRINGE IV PRN (22:20)
[2020-11-05] MEDS ORDERED: GLUCOSE 10 TABS/TUBE PO PRN (22:20)
[2020-11-05] MEDS ORDERED: ACETAMINOPHEN 325 MG TAB PO PRN (22:20)
[2020-11-05] MEDS ORDERED: GLUCOSE 40% GEL 15 GM TUBE PO PRN (22:20)
[2020-11-05] MEDS ORDERED: CARBOHYDRATES FOR HYPOGLYCEMIA PO PRN (22:20)
[2020-11-05] MEDS ORDERED: IPRATROPIUM BROMIDE HFA INHALER INH PRN (22:50)
[2020-11-05] MEDS ORDERED: ALBUTEROL HFA 8 GM INHALER INH PRN (22:50)
[2020-11-05] MEDS: APIXABAN 2.5 MG TAB PO SCH (23:06)
[2020-11-05] MEDS: carvediloL 12.5 MG TAB PO SCH (23:06)
[2020-11-05] MEDS: INSULIN ASPART 100 UNITS/ML 3 ML PEN SC SCH (23:09)
[2020-11-05] MEDS: ALBUT/IPRATROP 3MG/0.5MG NEB 3 ML VIAL INH SCH (23:58)
[2020-11-06] MEDS: carvediloL 12.5 MG TAB PO SCH (07:03)
[2020-11-06] MEDS: APIXABAN 2.5 MG TAB PO SCH (07:04)
[2020-11-06] MEDS: ALBUT/IPRATROP 3MG/0.5MG NEB 3 ML VIAL INH SCH (07:28)
[2020-11-06 07:36] LABS: Hematocrit (blood only) 35.6 % (37-47); Hemoglobin 11.4 g/dL (12.0-16.0); Immature Granulocytes # (auto) 0.03 K/uL (0.00-0.02); Immature Granulocytes % (auto) 0.6 %; Lymphocytes # (auto) 0.82 K/uL (1.2-3.4); Lymphocytes % (auto) 17.5 %; Mean Corpuscular Hemoglobin 29.2 pg (25-34); Mean Corpuscular Volume 91.3 fL (80-100); Mean Platelet Volume 10.6 fL (7.4-10.4); Monocytes # (auto) 0.08 K/uL (0.11-0.59); Monocytes % (auto) 1.7 %; Neutrophils # (auto) 3.76 K/uL (1.4-6.5); Neutrophils % (auto) 80.2 %; Platelet Count 255 K/uL (130-400); RDW Coefficient of Variation 17.5 % (11.5-14.5); White Blood Count 4.69 K/uL (4.8-10.8)
[2020-11-06 08:05] LABS: BUN Creatinine Ratio 27.5 (10-20); Calcium 9.6 mg/dl (8.5-10.1); Creatinine Clr Calc Pharmacy 22.8 ml/min; Est GFR (African American) 44.8 ml/min; Est GFR (Non-African American) 38.6 ml/min; Magnesium 1.7 mg/dl (1.8-2.4)
--- NOTE | 2020-11-06 08:58 | Electrocardiogram Report ---
Test Reason : Blood Pressure : / mmHG Vent. Rate : 063 BPM Atrial Rate : 063 BPM P-R Int : 182 ms QRS Dur : 154 ms QT Int : 488 ms P-R-T Axes : 081 -79 097 degrees QTc Int : 499 ms Poor data quality, interpretation may be adversely affected Atrial-sensed ventricular-paced rhythm Abnormal ECG When compared with ECG of 10-AUG-2020 14:29, Vent. rate has decreased BY 6 BPM Confirmed by Francisco Javier Pantoja ([id number]) on 11/06/2020 8:58:19 AM Referred By: Crystal Mcguire Confirmed By:Francisco Javier Pantoja
[2020-11-06] MEDS ORDERED: ASPIRIN 81 MG ECTAB PO SCH (09:00)
[2020-11-06] MEDS ORDERED: PANTOprazole 40 MG TAB PO SCH (09:00)
[2020-11-06] MEDS ORDERED: SERTRALINE HCL 50 MG TABLET PO SCH (09:00)
[2020-11-06] MEDS: INSULIN ASPART 100 UNITS/ML 3 ML PEN SC SCH ×2 (09:00→14:02)
[2020-11-06] MEDS ORDERED: FERROUS SULFATE 325 MG TAB PO SCH (09:00)
[2020-11-06] MEDS ORDERED: methylPREDNISolone 40 MG in SYRINGE 0 ML IV SCH (09:30)
[2020-11-06] MEDS ORDERED: ALBUT/IPRATROP 3MG/0.5MG NEB 3 ML VIAL INH SCH (13:00)
[2020-11-06] MEDS ORDERED: AZITHROMYCIN 250 MG TAB PO SCH (21:00)
--- NOTE | 2020-11-08 16:23 | Discharge Summary ---
Date of Service November 06, 2020 Admission HPI Per Admitting Provider 85 YOF with past medical history of: DM(on Lantus), COPD, Aortic Stenosis, anemia, Afib, CAD with ICM, CABG(2010), Vitamin D deficiency, secondary hyperparathyroidism, CKD III, chronic abdominal pain. Patient came to the emergency room today after being referred by her PCP. She was referred for worsening cough, dyspnea and hypoxia. The patient was originally started on Levaquin as outpatient and 20mg prednisone daily on 11/02. Prior to that the patient has been experiencing cough and dyspnea for approximately 2 weeks that has been getting worse. She has increased use of her inhalers without any roderick efit. She has a deep raspy cough with nasal congestion with the production of thin clear mucous and inspiratory and expiratory wheezing. She denies any fevers but does endorse feeling more tired with decreased PO intake of food and water. In the EMD the patient was noted to be 88% on room air and was placed on oxygen, she had a CXR that does not show any consolidative process, chronic small effusions and no change from CXR performed yesterday. She was given 6mg IV Decadron in the ED and a nebulizer. The hospitalist service was notified for admission. The patient was just finishing her nebulizer on my examination, but definite improvement with her SPO2 saturation and dyspnea. She continues to have productive cough with wheezing- patient will be admitted for likely bronchitis on top of her COPD. Will place her on Methylprednisone, Scheduled Combivent nebs, and change her ABX over to Azithromycin for anti-inflammatory component. Patient does also have a mild PAM consistent with decrease oral intake. Patient has received her COVID vaccine and her COVID test on admission is: NEGATIVE Principal Diagnosis bronchitis Discharge Exam General: awake, alert, no apparent distress Head: Normocephalic, atraumatic ENT: PERRL, EOMI, no pharyngeal exudate, mucous membranes moist Neuro: AAO x 3, speech clear and appropriate, strength intact bilaterally 5/5, sensation intact and equal all extremities and dermatomes, no pronator drift Chest: equal rise and fall of the chest, tachypneic, inspiratory and expiratory wheeze, deep raspy cough, on 2LNC Cardiac: Regular rate and rhythm, telemetry reviewed, skin warm dry, cap refill <3 seconds, peripheral pulses +2 no JVD, no murmur, trace lower extremity edema GI: NABS x 4 quadrants, soft, nontender to palpation, no rebound, guarding or tenderness : Spontaneously voiding, no pain, no CVA tenderness, Extremities: Normal inspection, no peripheral edema or erythema, calfs nontender to palpation Psych: Normal mood and affect Skin: no rash or erythema Discharge Data Allergies Allergy/AdvReac Type Severity Reaction Status Date / Time tamsulosin Allergy Severe SHORTNESS Verified 11/05/20 15:55 OF BREATH butalbital Allergy Intermediate SHORTNESS Verified 11/05/20 15:55 OF BREATH nitrofurantoin Allergy Unknown Unknown Verified 11/05/20 15:55 [From Macrobid] Cephalosporins AdvReac Severe TONGUE Verified 11/05/20 15:55 SWELLING WITH KEFLEX- tolerating keflex 03/16/20 levetiracetam AdvReac Intermediate RASH Verified 11/05/20 15:55 morphine AdvReac Intermediate hallucinati Verified 11/05/20 15:55 ons Sulfa (Sulfonamide AdvReac Unknown "SULFA Verified 11/05/20 15:55 Antibiotics) DRUGS" - UNKNOWN Consultations 11/05/20 19:04 ED Decision to Admit Stat Hospital Course (1) Bronchitis: Deep raspy clear secretion productive cough with inspiratory and expiratory wheeze - Continue with nebulizers scheduled - Methylpred 40mg Q12- can readjust based on symptoms - decreased interval as she received Decadron in ER - Deep breathing and coughing assistance - flutter valve - Azithromycin 500mg PO x1 now and then 250mg PO daily - Patient improved during hospital stay with supportive care and steroids and azithromycin - WBC 7, NLR7:1, COVID: NEGATIVE Will be discharged on a plan to complete 5 day course of azithromycin and complete steroid taper (2) COPD (chronic obstructive pulmonary disease): As above- COPD exacerbation likely related- viral URI - sputum and nasal congestion are clear - no fevers (3) PAM (acute kidney injury): Pre-renal consistent with decreased oral intake and continuing diuretics - Hold GILMAR and Lasix- can likely restart when improved renal indices - LR 80ml overnight for 1 Liter - Initial labs hemolyzed- pending redraw for K++ and LFT (4) Diabetes mellitus: In Lantus at home - contiune Lantus - Aspart sliding scale with steroid dosing - CF 20, Ratio 1-10 (5) Neuropathy of both upper extremities: Continue gabapentin- 400mg tonight with PAM - She is normally on 700mg nightly (6) Anticoagulant long-term use: On Apixaban- was originally on for afib - since she has had complete HB and Pacer insertion (7) Secondary hyperparathyroidism of renal origin: Hold her vitamin D and Cholecalciferol for now - continue gentle hydration overnight (8) Chronic combined systolic and diastolic CHF (congestive heart failure): Appears mildly hypovolemic on exam - no evidence of pulmonary congestion on CXR or physical exam as well - Continue her Carvdilol - ARB and Lasix on hold - trend Renal indices - Continue statin - (9) Aortic stenosis: As above- follow volume status and renal indicies (10) Cardiac pacemaker: - Her Pacmaker is AAIR with mode switch to DDR - Appropriate fire and capture- NSR (11) CAD (coronary artery disease): As above- NTG prn - She was given a trial of Ranolazine 500mg BID in July- not sure if she is continuing to take this as not mentioned in recent notes or medication recs (12) Dyslipidemia: Continue Lovastin Total Time Total Time Spent Total Time Spent (In Minutes): 32 Discharge Plan Discharge Items Patient Disposition: Home - Self-Care Reason For Visit: DYSPNEA, COUGH, HYPOXIA Discharge Diagnosis: Dyspnea, cough Activity: Resume your previous activity Non-emergency contact: Primary Care Provider Call non-emergency contact if: you have any medication questions Follow-up/Referrals: Crystal Mcguire CRNP [Primary Care Provider] - 11/19/20 10:30 am Diet: Carb Consistent or DM2 Addtl Attending Provider Instructions: You have been hospitalized for an acute medical problem. During your stay at [facility], we have made an effort to correct the problem that brought you to the hospital while keeping you as comfortable as possible. Medications were used to bring your condition under control and your discharge instructions will include directions for any medications you should take after leaving the hospital. Please make sure you see your Primary Care Provider as part of your follow up plan. Pending Studies at Discharge: No Stand-Alone Forms: [facility] Sm[facility] Cess[facility] Medications and DC Order Prescriptions: New azithromycin 250 mg Tablet 250 mg PO HS Qty: 4 RF: 0 prednisone 10 mg tablet See Rx Instructions .ROUTE .COMPLEX Qty: 20 RF: 0 Continued Combivent Respimat 20-100 mcg/actuation Mist 1 puff INHALATION QID PRN (Reason: Wheezing) Qty: 0 RF: 0 ipratropium-albuterol 0.5 mg-3 mg(2.5 mg base)/3 mL solution for nebulization 3 ml INHALATION Q4H PRN (Reason: Wheezing) Qty: 180 RF: 8 lovastatin 40 mg tablet 40 mg PO HS Qty: 90 RF: 3 Eliquis 2.5 mg tablet 2.5 mg PO BID Qty: 60 RF: 10 calcium carbonate-vitamin D3 [Os-Emile 500 + D3] 500 mg(1,250mg) -200 unit tablet 1 tab PO QAM Qty: 0 RF: 0 furosemide 20 mg tablet 20 mg PO QAM Qty: 30 RF: 8 gabapentin [Neurontin] 400 mg capsule 400 mg PO HS Qty: 30 RF: 11 valsartan 40 mg tablet 40 mg PO BID Qty: 180 RF: 3 carvedilol 12.5 mg tablet 12.5 mg PO BID Qty: 60 RF: 2 nitroglycerin 0.4 mg tablet, sublingual 0.4 mg sublingual Q5M PRN (Reason: chest pain) Qty: 20 RF: 2 calcitriol 0.25 mcg capsule 0.25 mcg PO 3XWK Qty: 14 RF: 5 pantoprazole 40 mg tablet,delayed release (DR/EC) 40 mg PO DAILY RF: 0 methenamine hippurate 1 gram tablet 1 g PO BID RF: 0 prednisone 20 mg tablet 20 mg PO DAILY Qty: 7 RF: 0 aspirin 81 mg Tablet,Delayed Release (Dr/Ec) 81 mg PO QAM RF: 0 Lantus Solostar U-100 Insulin 100 unit/mL (3 mL) insulin pen 15 unit SQ HS RF: 0 gabapentin 300 mg capsule 300 mg PO HS RF: 0 sertraline 50 mg tablet 50 mg PO QAM RF: 0 ferrous sulfate 325 mg (65 mg iron) tablet 325 mg PO DAILY Qty: 30 RF: 0 Discontinued levofloxacin 250 mg tablet 250 mg PO DAILY Qty: 7 RF: 0 Discharge Orders: Discharge Order (Routine); Ordered 11/06/20 Ordered By: Brian Samuel Admission Data Admit Date/Time: 11/05/20 20:19 Attending Provider: Brian Samuel Admit Provider: [place] Primary Care Provider: Crystal Mcguire Other Providers: [place] Other Interventions: Discharge Summary Assessment (RN) Last Done: 11/06/20 16:49 Coding Level of Care Code D/C DAY MANAGEMENT >30 MINS Diagnoses Bronchitis J40 COPD (chronic obstructive pulmonary disease) J44.9 PAM (acute kidney injury) N17.9 Diabetes mellitus E11.9; Z79.4 Diabetes mellitus complication status: without complication Diabetes mellitus senior living insulin use: with termite technician use Diabetes mellitus type: type 2 Neuropathy of both upper extremities G56.93 Anticoagulant long-term use Z79.01 Secondary hyperparathyroidism of renal origin N25.81 Chronic combined systolic and diastolic CHF (congestive heart failure) I50.42 Aortic stenosis I35.0 Cardiac pacemaker Z95.0 CAD (coronary artery disease) I25.708 Associated angina: with stable angina Coronary Disease-Associated Artery/Lesion type: bypass graft [place] vs. transplanted heart: [place] heart Dyslipidemia E78.5
== END 2020-11-06 17:20 | disposition home or self-care (01) | DRG 190 ==
LOC: ED 17:24 → 3N 20:19 → SUATTDRO 20:19 → 3N 21:20

== ENCOUNTER 2021-07-11 21:03 | Inpatient (IN) ==
--- NOTE | 2021-07-11 22:09 | XRay Report ---
SINGLE VIEW PELVIS; 3 VIEWS LEFT FEMUR CLINICAL HISTORY: Fall. Left leg pain. FINDINGS: An AP view of the pelvis with AP, frog-leg, and crosstable lateral views of the left femur are compared to study dated 12/23/2019. The skeletal structures are osteopenic. There is no radiograph ic evidence of acute fracture involving the right hip or the bony pelvis. There is a nondisplaced fra cture through the greater trochanter of the left femur no additional acute fracture of the left femur is seen. 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 A bipolar right hip arthroplasty is in near-anatomic alignment. There is mild joint space narrowing of left hip. There is avascular necrosis of the left femoral head. Mil d degenerative sclerosis is noted in the sacroiliac joints. The left knee joint is grossly maintained . Surgical clips are seen around the left knee. The overlying soft tissues are within normal limits. Surgical clips project over the right groin. There is atherosclerotic calcification of the femoral ar teries. IMPRESSION: 1. Nondisplaced fracture through the greater trochanter of the left femur. 2. No additional acute fracture is seen involving the left femur. 3. No fracture is seen involving the right hip or the bony pelvis. 4. Avascular necrosis of the left femoral head. 5. Additional chronic and postoperative findings as above. Electronically signed by: Christos Ochoa M.D. 07/11/2021 10:07 PM
--- NOTE | 2021-07-11 22:30 | Emergency Department Note ---
History of Present Illness General Chief complaint: Fall Stated complaint: FALL/w/LEFT HIP PAIN Time Seen by Provider: 07/11/21 21:34 History of Present Illness Maximum Pain Intensity: 5 86-year-old female presents to the ED with a chief complaint of fall. The patient falls on occasion. The patient presents with her son. She states that she was walking into the kitchen to get something to eat when the fall occurred. She states that her legs just gave out on her. She complains of some pain in the left hip and femur area. No additional complaints at this time. The patient has difficulty localizing the area of pain and states that it sometimes feels like the entire femur area. Pain is worse with movement. She denies striking her head or loss of consciousness. Denies any neck or back pain. No chest pains. No extremity pains. She did suffer a small abrasion to the left elbow. Home Medications Medication Instructions Recorded Confirmed Type calcium carbonate 500 mg-vitamin 1 tab PO QAM #0 tab 04/09/20 07/12/21 History D3 5 mcg (200 unit) tablet (Os-Emile 500 + D3) methenamine hippurate 1 gram tablet 1 g PO BID 08/25/20 07/12/21 History ascorbic acid (vitamin C) 500 mg 500 mg PO QAM 11/19/20 07/12/21 History tablet ipratropium 0.5 mg-albuterol 3 mg 3 ml INHALATION Q4H PRN #180 ml 01/28/21 07/12/21 Rx (2.5 mg base)/3 mL nebulization soln peg 400-propylene glycol 0.4 %-0.3 1 drp OPHTHALMIC (EYE) Q8H PRN 04/01/21 07/12/21 History % eye gel drops (Systane Gel) hospital bed #1 ea 04/05/21 07/12/21 Rx blood sugar diagnostic (OneTouch #100 ea 04/06/21 07/12/21 Rx Verio test strips) lancets 32 gauge (Easy Touch Twist #100 ea 04/06/21 07/12/21 Rx Lancets) conjugated estrogens 0.625 mg/gram 1 applic VAGINAL UD 04/19/21 07/12/21 History vaginal cream (Premarin) calcitriol 0.25 mcg capsule 0.25 mcg PO 3XWK #36 cap 04/22/21 07/12/21 Rx ferrous sulfate 325 mg (65 mg 325 mg PO QAM #90 tab 05/14/21 07/12/21 Rx iron) tablet gabapentin 100 mg capsule 100 mg PO TID #270 cap 05/14/21 07/12/21 Rx lovastatin 40 mg tablet 40 mg PO PM #90 tab 05/14/21 07/12/21 Rx pantoprazole 40 mg tablet,delayed 40 mg PO DAILY@0600 #90 tab 05/14/21 07/12/21 Rx release carvedilol 12.5 mg tablet 12.5 mg PO BID #10 tab 05/20/21 07/12/21 Rx furosemide 20 mg tablet 20 mg PO QAM #90 tab 05/20/21 07/12/21 Rx sertraline 50 mg tablet 50 mg PO QAM #90 tab 05/20/21 07/12/21 Rx valsartan 40 mg tablet 20 mg PO QAM #45 tab 06/17/21 07/12/21 Rx Allergies Allergy/AdvReac Type Severity Reaction Status Date / Time tamsulosin Allergy Severe SHORTNESS Verified 07/12/21 01:39 OF BREATH butalbital Allergy Intermediate SHORTNESS Verified 07/12/21 01:39 OF BREATH nitrofurantoin Allergy Unknown Unknown Verified 07/12/21 01:39 [From Macrobid] Cephalosporins AdvReac Severe TONGUE Verified 07/12/21 01:39 SWELLING WITH KEFLEX- tolerating keflex 03/16/20 levetiracetam AdvReac Intermediate RASH Verified 07/12/21 01:39 morphine AdvReac Intermediate hallucinati Verified 07/12/21 01:39 ons Sulfa (Sulfonamide AdvReac Unknown "SULFA Verified 07/12/21 01:39 Antibiotics) DRUGS" - UNKNOWN Past Med/Surg History Medical History Abscess of hand, right Acute UTI (urinary tract infection) Allergy to multiple antibiotics Anemia Cardiac pacemaker for complete hear block Cellulitis of right hand Cerebellar infarct Chronic renal disease, stage III Depression Diabetes mellitus Extremity atherosclerosis with intermittent claudication Fracture of pubic ramus Gait instability History of chest pain Hypertension Lower abdominal pain Secondary hyperparathyroidism of renal origin Solitary pulmonary nodule Transient ischemic attack (TIA) Vitamin D deficiency Surgical History History of nasal surgery Hx of carpal tunnel repair Family History Other Family history non-contributory Social History Smoking Status: Never smoker Second Hand Exposure: No; Hx Alcohol Use: No Hx Substance Use: No Preferred Language: Panamanian Communication Ability: Effective Visual Impairment: No Limitations Television Tube Inspector Required: No Beliefs That Will Affect Care: None marital status: / Current Living Situation: Alone How many Children do You have: 3 Feels Safe at Home: Yes Childhood Exposure to Second-Hand Smoke: Yes caffeine: Yes Dental Care, Regularly: No Physical Activity Frequency: 1-2 Times per Week Seatbelt Use: always Sunscreen Use: No Assistive Devices: Cane, Oxygen - at Night and Walker Review of Systems A total of 10 systems reviewed and were otherwise negative Physical Exam Vital Signs Vital Signs - 24 hr 07/11/21 21:14 07/11/21 23:14 Temperature 36.7 C Temperature Source Oral Pulse Rate 65 Pulse Rate [Finger] 79 Pulse Rhythm [Finger] Regular Respiratory Rate 19 12 Respiratory Effort / Characteristics Non-Labored Respiratory Depth Normal Blood Pressure 189/74 H Blood Pressure Mean 112 Pulse Oximetry 95 98 Oxygen Delivery Method Room Air Sepsis Recent Fever Within 48 Hours No Sepsis New/Unexplained Change in Mental Status No Sepsis Action Taken by Nursing No Action Required CONSTITUTIONAL/VITAL SIGNS: Reviewed / noted above. GENERAL: Non-toxic in appearance. INTEGUMENTARY: Warm, dry, and [place]. HEAD: Normocephalic. EYES: without scleral icterus or trauma. ENT/OROPHARYNX: clear and moist. LYMPHADENOPATHY/NECK: Is supple without lymphadenopathy or meningismus. RESPIRATORY: Clear to auscultation bilaterally. No increased work of breathing. CARDIOVASCULAR: Regular rate and rhythm. GI/ABDOMEN: Soft and nontender. No organomegaly or pulsatile mass. EXTREMITIES: Warm and well perfused. Left elbow abrasion. Left hip and femur area reveals tenderness throughout. There is discomfort with axial loading as well. Difficult to localize a specific area of pain. No obvious deformity or shortening. BACK: No CVA tenderness. NEUROLOGICAL: Intact without focal deficits. PSYCHIATRIC: normal affect. MUSCULOSKELETAL: Normally developed with good muscle tone. TRIAGE NURSING DOCUMENTATION REVIEWED. Course Administered Medications Discontinued Medications Albuterol (Albut/Ipratrop 3mg/0.5mg Neb 3 Ml Vial) 3 ml NEB NOW STA; Protocol Stop: 07/12/21 00:59 Last Admin: 07/12/21 01:11 Dose: 3 ml Documented by: [id number] Furosemide (Furosemide 40 Mg/4 Ml Vial) 40 mg IV ONE ONE Stop: 07/12/21 00:59 Last Admin: 07/12/21 01:11 Dose: 40 mg Documented by: [id number] Hydralazine HCl (Hydralazine Hcl 20 Mg/Ml Vial) 10 mg IV NOW STA Stop: 07/12/21 01:00 Last Admin: 07/12/21 01:11 Dose: 10 mg Documented by: [id number] Medical Decision Making Differential Diagnosis Differential includes close head injury, intracranial bleed, facial trauma, cervical spine trauma, chest and thoracic trauma, abdominal and intra-abdominal trauma, spine neurologic trauma, extremity trauma. Medical Records Attestation: I reviewed the patient's medical records. Home Medications Current Medication List: was personally reviewed by me Laboratory Data Result diagrams: 07/12/21 00:10 07/12/21 00:10 Lab Results 07/12/21 07/12/21 07/12/21 Range/Units 00:10 00:10 00:10 WBC 15.13 H (4.8-10.8) K/uL RBC 4.81 (4.2-5.4) M/uL Hgb 14.0 (12.0-16.0) g/dL Hct 42.0 (37-47) % MCV 87.3 (80-100) fL MCH 29.1 (25-34) pg MCHC 33.3 (32-36) g/dL RDW Std Deviation 48.2 H (36.4-46.3) fL RDW Coeff of Carlos 15.0 H (11.5-14.5) % Plt Count 191 (130-400) K/uL MPV 11.1 H (7.4-10.4) fL Immature Gran % (Auto) 0.5 % Neut % (Auto) 79.6 % Lymph % (Auto) 17.3 % [place] % (Auto) 2.2 % Eos % (Auto) 0.3 % Baso % (Auto) 0.1 % Neut # (Auto) 12.05 H (1.4-6.5) K/uL Lymph # (Auto) 2.61 (1.2-3.4) K/uL [place] # (Auto) 0.34 (0.11-0.59) K/uL Eos # (Auto) 0.05 (0-0.5) K/uL Baso # (Auto) 0.01 (0-0.2) K/uL Immature Gran # (Auto) 0.07 H (0.00-0.02) K/uL Sodium 138 (136-145) mmol/L Potassium 3.5 (3.5-5.1) mmol/L Chloride 101 (98-107) mmol/L Carbon Dioxide 26 (21-32) mmol/L Anion Gap 11 (3-11) BUN 30 H (6-23) mg/dl Creatinine 1.00 (0.6-1.2) mg/dl Est Cr Clr Drug Dosing 26.6 ml/min Est GFR ( Amer) 58.3 ml/min Est GFR (Non-Af Amer) 50.3 ml/min BUN/Creatinine Ratio 30.0 H (10-20) Glucose 135 H (70-99(Fasting)) mg/dl Calcium 10.2 H (8.5-10.1) mg/dl Total Bilirubin 0.5 (0.2-1.0) mg/dl AST 15 (13-39) U/L ALT 12 (7-52) U/L Alkaline Phosphatase 61 (34-104) U/L Total Creatine Kinase 46 (26-192) U/L Total Protein 7.7 (6.0-8.3) gm/dl Albumin 4.4 (3.4-5.0) gm/dl Globulin 3.3 (2.5-4.0) gm/dl Albumin/Globulin Ratio 1.3 (0.9-2) SARS-CoV-2, RNA, NAAT NEGATIVE (NEGATIVE) Imaging Data My Impression: Chest x-ray: Present my interpretation there is no pneumonia or pneumothorax. COPD pattern. Radiologist's Impression: Pelvis X-Ray 07/11/21 00:00 SINGLE VIEW PELVIS; 3 VIEWS LEFT FEMUR CLINICAL HISTORY: Fall. Left leg pain. FINDINGS: An AP view of the pelvis with AP, frog-leg, and crosstable lateral views of the left femur are compared to study dated 12/23/2019. The skeletal st ructures are osteopenic. There is no radiographic evidence of acute fracture involving the right hip or the bony pelvis. There is a nondisplaced fracture through the greater trochanter of the left femur no additional acute fracture of the left femur is seen. 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 A bipolar right hip arthroplasty is in near-anatomic alignment. There is mild joint space narrowing of left hip. There is avascular necrosis of the left femoral head. Mild degenerative sclerosis is noted in the sacroiliac joints. The left knee joint is grossly maintained. Surgical clips are seen around the left knee. The overlying soft tissues are within normal limits. Surgical clips project over the right groin. There is atherosclerotic calcification of the femoral arteries. IMPRESSION: 1. Nondisplaced fracture through the greater trochanter of the left femur. 2. No additional acute fracture is seen involving the left femur. 3. No fracture is seen involving the right hip or the bony pelvis. 4. Avascular necrosis of the left femoral head. 5. Additional chronic and postoperative findings as above. Electronically signed by: Christos Ochoa M.D. 07/11/2021 10:07 PM Femur X-Ray 07/11/21 21:35 SINGLE VIEW PELVIS; 3 VIEWS LEFT FEMUR CLINICAL HISTORY: Fall. Left leg pain. FINDINGS: An AP view of the pelvis with AP, frog-leg, and crosstable lateral views of the left femur are compared to study dated 12/23/2019. The skeletal structures are osteopenic. There is no radiographic evidence of acute fracture involving the right hip or the bony pelvis. There is a nondisplaced fracture through the greater trochanter of the left femur no additional acute fracture of the left femur is seen. 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 A bipolar right hip arthroplasty is in near-anatomic alignment. There is mild joint space narrowing of left hip. There is avascular necrosis of the left femoral head. Mild degenerative sclerosis is noted in the sacroiliac joints. The left knee joint is grossly maintained. Surgical clips are seen around the left knee. The overlying soft tissues are within normal limits. Surgical clips project over the right groin. There is atherosclerotic calcification of the femoral arteries. IMPRESSION: 1. Nondisplaced fracture through the greater trochanter of the left femur. 2. No additional acute fracture is seen involving the left femur. 3. No fracture is seen involving the right hip or the bony pelvis. 4. Avascular necrosis of the left femoral head. 5. Additional chronic and postoperative findings as above. Electronically signed by: Christos Ochoa M.D. 07/11/2021 10:07 PM MDM Narrative 78-year-old female presents with left hip and femur pain after a fall. X-ray suggest a greater trochanter fracture. No other suspected injuries based on complaint. The patient's son states that she is unable to go home because of the pain and inability to get around her home. He would like her to be placed in a nursing facility for rehab but does not want [facility]. The patient will be evaluated by the hospitalist service. While the patient was still in the emergency department, her blood pressure elevated and she was feeling short of breath. Chest x-ray was performed. COPD pattern. No obvious pneumonia or acute pulmonary edema. The patient was treated with IV Lasix as well as a DuoNeb treatment and some IV hydralazine. This did improve her breathing. She was also given 2 mg of IV morphine for her pain. Impression & Plan Closed fracture of greater trochanter of left femur, Hypertension, uncontrolled Discharge Plan Visit Data Chief Complaint: Fall Stated Complaint: FALL/w/LEFT HIP PAIN ED Provider: Dex Acuna Discharge Problem: Closed fracture of greater trochanter of left femur, Hypertension, uncontrolled Patient Disposition: Being Evaluated by Hospitalist Forms Stand Alone Forms: [facility] [employer] Prescriptions Prescriptions: No Action calcium carbonate-vitamin D3 [Os-Emile 500 + D3] 500 mg(1,250mg) -200 unit tablet 1 tab PO QAM Qty: 0 RF: 0 ipratropium-albuterol 0.5 mg-3 mg(2.5 mg base)/3 mL solution for nebulization 3 ml INHALATION Q4H PRN (Reason: Wheezing) Qty: 180 RF: 8 (DME) OneTouch Verio test strips Strip See Rx Instructions .Route Qty: 100 RF: 1 (DME) Easy Touch Twist Lancets 32 gauge misc See Rx Instructions .Route Qty: 100 RF: 1 calcitriol 0.25 mcg capsule 0.25 mcg PO 3XWK Qty: 36 RF: 5 ferrous sulfate 325 mg (65 mg iron) tablet 325 mg PO QAM Qty: 90 RF: 3 gabapentin 100 mg capsule 100 mg PO TID Qty: 270 RF: 3 lovastatin 40 mg tablet 40 mg PO PM Qty: 90 RF: 3 pantoprazole 40 mg tablet,delayed release (DR/EC) 40 mg PO DAILY@0600 Qty: 90 RF: 3 valsartan 40 mg tablet 20 mg PO QAM Qty: 45 RF: 3 Hold Instructions: BP low carvedilol 12.5 mg tablet 12.5 mg PO BID Qty: 10 RF: 3 furosemide 20 mg tablet 20 mg PO QAM Qty: 90 RF: 3 sertraline 50 mg tablet 50 mg PO QAM Qty: 90 RF: 3 (DME) hospital bed See Rx Instructions .Route .MEDSUPPLY Qty: 1 RF: 0 methenamine hippurate 1 gram tablet 1 g PO BID RF: 0 ascorbic acid (vitamin C) 500 mg tablet 500 mg PO QAM RF: 0 Premarin 0.625 mg/gram cream 1 applic vaginal UD RF: 0 Systane Gel 0.4-0.3 % Drops,Gel 1 drp ophthalmic (eye) Q8H PRN (Reason: Dry Eyes) RF: 0 Referrals Referrals: Shanti Valles MD [Primary Care Provider] -
[2021-07-12 00:30] LABS: Basophils # (auto) 0.01 K/uL (0-0.2); Basophils % (auto) 0.1 %; Eosinophils # (auto) 0.05 K/uL (0-0.5); Eosinophils % (auto) 0.3 %; Immature Granulocytes # (auto) 0.07 K/uL (0.00-0.02); Immature Granulocytes % (auto) 0.5 %; Lymphocytes # (auto) 2.61 K/uL (1.2-3.4); Lymphocytes % (auto) 17.3 %; Mean Corpuscular Hemoglobin 29.1 pg (25-34); Mean Corpuscular Hgb Conc 33.3 g/dL (32-36); Mean Corpuscular Volume 87.3 fL (80-100); Mean Platelet Volume 11.1 fL (7.4-10.4); Monocytes # (auto) 0.34 K/uL (0.11-0.59); Monocytes % (auto) 2.2 %; Neutrophils # (auto) 12.05 K/uL (1.4-6.5); Neutrophils % (auto) 79.6 %; Platelet Count 191 K/uL (130-400); RDW Standard Deviation 48.2 fL (36.4-46.3); Red Blood Count 4.81 M/uL (4.2-5.4); White Blood Count 15.13 K/uL (4.8-10.8)
[2021-07-12] MEDS ORDERED: ALBUT/IPRATROP 3MG/0.5MG NEB 3 ML VIAL NEB STA (00:58)
[2021-07-12] MEDS ORDERED: FUROSEMIDE 40 MG/4 ML VIAL IV ONE (00:58)
[2021-07-12] MEDS ORDERED: hydrALAZINE HCL 20 MG/ML VIAL IV STA (00:59)
[2021-07-12 01:03] LABS: Albumin Globulin Ratio 1.3 (0.9-2); Albumin Level 4.4 gm/dl (3.4-5.0); Bilirubin,Total 0.5 mg/dl (0.2-1.0); Calcium 10.2 mg/dl (8.5-10.1); Creatinine Clr Calc Pharmacy 26.6 ml/min; Est GFR (African American) 58.3 ml/min; Est GFR (Non-African American) 50.3 ml/min; Globulin 3.3 gm/dl (2.5-4.0); Potassium 3.5 mmol/L (3.5-5.1); Total Protein 7.7 gm/dl (6.0-8.3)
[2021-07-12] MEDS ORDERED: MoRPHine SULFATE 2 MG/ML CARP IV STA (01:56)
--- NOTE | 2021-07-12 02:01 | History & Physical Report ---
Date of Service July 12, 2021 Assessment & Plan (1) Closed fracture of greater trochanter of left femur: Plan: Closed fracture of greater trochanter of left femur- Status post mechanical fall N.p.o. except medications Acetaminophen 1000 mg IV every 8 hours as needed for mild pain or fever [place] 5/325, 1 p.o. every 6 hours as needed moderate pain [place] 5/325, 2 p.o. every 6 hours as needed severe pain Dilaudid 0.25 mg IV every 4 hours as needed moderate pain Dilaudid 0.5 mg IV every 4 hours as needed severe pain Zofran 4 mg IV every 6 hours as needed Consult orthopedic surgery. Patient upon questioning reports that she would want to have surgery, as she needs to be able to walk (2) Hypertension: Plan: Hypertension/CAD/aortic stenosis- Continue carvedilol 12.5 mg p.o. twice daily and valsartan 20 mg p.o. every morning Lopressor 5 mg IV every 4 hours as needed for systolic blood pressure greater than 160 (3) CAD (coronary artery disease): Plan: See above (4) Aortic stenosis: Plan: See above (5) COPD (chronic obstructive pulmonary disease): Plan: Continue DuoNebs every 4 hours as needed (6) CKD (chronic kidney disease), stage III: Plan: CKD stage III/secondary hyperparathyroidism/vitamin D deficiency- Creatinine 1.00 upon admission, with range 0.97-1.50 Continue calcitriol, and calcium carbonate (7) Secondary hyperparathyroidism of renal origin: Plan: See above (8) Vitamin D deficiency: Plan: See above (9) Dyslipidemia: Plan: Continue lovastatin 40 mg every evening (10) Cardiac pacemaker: Plan: 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 (11) Depression: Plan: Continue sertraline (12) Diabetes mellitus: Plan: History of diabetes mellitus, currently on no medications, with glucose of 135 on admission labs (13) At high risk for falls: Plan: Led to current issue with left femur fracture History of Present Illness Chief Complaint: The patient presents to the emergency department with acute onset of left hip pain after she fell as she was walking in the kitchen to get something to eat. She denies any other bodily trauma, and including hitting her head Primary Care Provider: Shanti Valles MD The patient is a 86-year-old female with a past medical history including hypertension, headaches, generalized weakness, subarachnoid hemorrhage, subdural hematoma, aortic stenosis, PAM, COPD, diabetes mellitus, ambulatory dysfunction, neuropathy of both upper extremities, depression, secondary hyperparathyroidism, chronic combined systolic and diastolic CHF, paroxysmal atrial fibrillation, cardiomyopathy, cardiac pacemaker for complete AV block, dyslipidemia and diabetic peripheral neuropathy. She presents as noted above, stating that her legs just gave out on her. Allergies Allergy/AdvReac Type Severity Reaction Status Date / Time tamsulosin Allergy Severe SHORTNESS Verified 07/12/21 01:39 OF BREATH butalbital Allergy Intermediate SHORTNESS Verified 07/12/21 01:39 OF BREATH nitrofurantoin Allergy Unknown Unknown Verified 07/12/21 01:39 [From Macrobid] Cephalosporins AdvReac Severe TONGUE Verified 07/12/21 01:39 SWELLING WITH KEFLEX- tolerating keflex 03/16/20 levetiracetam AdvReac Intermediate RASH Verified 07/12/21 01:39 morphine AdvReac Intermediate hallucinati Verified 07/12/21 01:39 ons Sulfa (Sulfonamide AdvReac Unknown "SULFA Verified 07/12/21 01:39 Antibiotics) DRUGS" - UNKNOWN Home Medications Medication Instructions Recorded Confirmed Type calcium carbonate 500 mg-vitamin 1 tab PO QAM #0 tab 04/09/20 07/12/21 History D3 5 mcg (200 unit) tablet (Os-Emile 500 + D3) methenamine hippurate 1 gram tablet 1 g PO BID 08/25/20 07/12/21 History ascorbic acid (vitamin C) 500 mg 500 mg PO QAM 11/19/20 07/12/21 History tablet ipratropium 0.5 mg-albuterol 3 mg 3 ml INHALATION Q4H PRN #180 ml 01/28/21 07/12/21 Rx (2.5 mg base)/3 mL nebulization soln peg 400-propylene glycol 0.4 %-0.3 1 drp OPHTHALMIC (EYE) Q8H PRN 04/01/21 07/12/21 History % eye gel drops (Systane Gel) hospital bed #1 ea 04/05/21 07/12/21 Rx blood sugar diagnostic (OneTouch #100 ea 04/06/21 07/12/21 Rx Verio test strips) lancets 32 gauge (Easy Touch Twist #100 ea 04/06/21 07/12/21 Rx Lancets) conjugated estrogens 0.625 mg/gram 1 applic VAGINAL UD 04/19/21 07/12/21 History vaginal cream (Premarin) calcitriol 0.25 mcg capsule 0.25 mcg PO 3XWK #36 cap 04/22/21 07/12/21 Rx ferrous sulfate 325 mg (65 mg 325 mg PO QAM #90 tab 05/14/21 07/12/21 Rx iron) tablet gabapentin 100 mg capsule 100 mg PO TID #270 cap 05/14/21 07/12/21 Rx lovastatin 40 mg tablet 40 mg PO PM #90 tab 05/14/21 07/12/21 Rx pantoprazole 40 mg tablet,delayed 40 mg PO DAILY@0600 #90 tab 05/14/21 07/12/21 Rx release carvedilol 12.5 mg tablet 12.5 mg PO BID #10 tab 05/20/21 07/12/21 Rx furosemide 20 mg tablet 20 mg PO QAM #90 tab 05/20/21 07/12/21 Rx sertraline 50 mg tablet 50 mg PO QAM #90 tab 05/20/21 07/12/21 Rx valsartan 40 mg tablet 20 mg PO QAM #45 tab 06/17/21 07/12/21 Rx Past Med/Surg History Medical History Abscess of hand, right Acute UTI (urinary tract infection) Allergy to multiple antibiotics Anemia Cardiac pacemaker for complete hear block Cellulitis of right hand Cerebellar infarct Chronic renal disease, stage III Depression Diabetes mellitus Extremity atherosclerosis with intermittent claudication Fracture of pubic ramus Gait instability History of chest pain Hypertension Lower abdominal pain Secondary hyperparathyroidism of renal origin Solitary pulmonary nodule Transient ischemic attack (TIA) Vitamin D deficiency Surgical History History of nasal surgery Hx of carpal tunnel repair Family History Other Family history non-contributory Social History Smoking Status: Never smoker Second Hand Exposure: No; Hx Alcohol Use: No Hx Substance Use: No Preferred Language: Portuguese Communication Ability: Effective Visual Impairment: No Limitations Pile Header Required: No Beliefs That Will Affect Care: None marital status: / Current Living Situation: Alone How many Children do You have: 3 Feels Safe at Home: Yes Childhood Exposure to Second-Hand Smoke: Yes caffeine: Yes Dental Care, Regularly: No Physical Activity Frequency: 1-2 Times per Week Seatbelt Use: always Sunscreen Use: No Assistive Devices: Cane, Oxygen - at Night and Walker Review of Systems Review of Systems: The patient denies chest pain, palpitations, shortness of breath, dyspnea on exertion, cough, sore throat, fevers, chills, sweats, nausea, vomiting, diarrhea , constipation, abdominal pain, pelvic pain, blood in urine or stool, dysuria, urinary frequency or urgency, loss of consciousness, rash, abnormal bruising or bleeding, focal weakness, numbness or tingling in arms, or night sweats. The review of systems is otherwise negative other than for that already noted above, and at least 10 systems have been reviewed. Physical Exam Physical Exam: The patient is awake, alert, normocephalic and atraumatic, lying in bed and in mild to moderate acute distress secondary to hip pain when moving HEENT--PERRL, EOMI, mucous membranes and oropharynx dry Neck--supple. No JVD. No bruits. Thyroid normal, trachea midline, no adenopathy. Heart--normal S1 and S2. No murmurs, rubs or gallops. Lungs--clear bilaterally, no respiratory distress, no accessory muscle use. Abdomen--normal bowel sounds and soft. Nontender. Nondistended, no hernias or masses, no organomegaly. Extremities--no cyanosis or clubbing. No edema. Dermatologic--normal skin turgor, normal color, no abnormal lymph nodes, no rash. Neurologic--cranial nerves II through XII grossly intact. Rheumatologic--limited exam due to hip fracture Psychiatric--normal affect. Results & Data Results & Data ([facility]) Vital Signs (Past 12 Hours) Vital Signs Temp Pulse Pulse Resp BP Pulse Ox 07/11/21 23:14 79 12 98 07/11/21 21:14 36.7 C 65 19 189/74 H 95 Laboratory Results Laboratory Results WBC 15.13 K/uL (4.8-10.8) H 07/12/21 00:10 RBC 4.81 M/uL (4.2-5.4) 07/12/21 00:10 Hgb 14.0 g/dL (12.0-16.0) 07/12/21 00:10 Hct 42.0 % (37-47) 07/12/21 00:10 MCV 87.3 fL (80-100) 07/12/21 00:10 MCH 29.1 pg (25-34) 07/12/21 00:10 MCHC 33.3 g/dL (32-36) 07/12/21 00:10 RDW Std Deviation 48.2 fL (36.4-46.3) H 07/12/21 00:10 RDW Coeff of Carlos 15.0 % (11.5-14.5) H 07/12/21 00:10 Plt Count 191 K/uL (130-400) 07/12/21 00:10 MPV 11.1 fL (7.4-10.4) H 07/12/21 00:10 Immature Gran % (Auto) 0.5 % 07/12/21 00:10 Neut % (Auto) 79.6 % 07/12/21 00:10 Lymph % (Auto) 17.3 % 07/12/21 00:10 [place] % (Auto) 2.2 % 07/12/21 00:10 Eos % (Auto) 0.3 % 07/12/21 00:10 Baso % (Auto) 0.1 % 07/12/21 00:10 Neut # (Auto) 12.05 K/uL (1.4-6.5) H 07/12/21 00:10 Lymph # (Auto) 2.61 K/uL (1.2-3.4) 07/12/21 00:10 [place] # (Auto) 0.34 K/uL (0.11-0.59) 07/12/21 00:10 Eos # (Auto) 0.05 K/uL (0-0.5) 07/12/21 00:10 Baso # (Auto) 0.01 K/uL (0-0.2) 07/12/21 00:10 Immature Gran # (Auto) 0.07 K/uL (0.00-0.02) H 07/12/21 00:10 Sodium 138 mmol/L (136-145) 07/12/21 00:10 Potassium 3.5 mmol/L (3.5-5.1) 07/12/21 00:10 Chloride 101 mmol/L (98-107) 07/12/21 00:10 Carbon Dioxide 26 mmol/L (21-32) 07/12/21 00:10 Anion Gap 11 (3-11) 07/12/21 00:10 BUN 30 mg/dl (6-23) H 07/12/21 00:10 Creatinine 1.00 mg/dl (0.6-1.2) 07/12/21 00:10 Est Cr Clr Drug Dosing 26.6 ml/min 07/12/21 00:10 Est GFR ( Amer) 58.3 ml/min 07/12/21 00:10 Est GFR (Non-Af Amer) 50.3 ml/min 07/12/21 00:10 BUN/Creatinine Ratio 30.0 (10-20) H 07/12/21 00:10 Glucose 135 mg/dl (70-99(Fasting)) H 07/12/21 00:10 Calcium 10.2 mg/dl (8.5-10.1) H 07/12/21 00:10 Total Bilirubin 0.5 mg/dl (0.2-1.0) 07/12/21 00:10 AST 15 U/L (13-39) 07/12/21 00:10 ALT 12 U/L (7-52) 07/12/21 00:10 Alkaline Phosphatase 61 U/L (34-104) 07/12/21 00:10 Total Creatine Kinase 46 U/L (26-192) 07/12/21 00:10 Total Protein 7.7 gm/dl (6.0-8.3) 07/12/21 00:10 Albumin 4.4 gm/dl (3.4-5.0) 07/12/21 00:10 Globulin 3.3 gm/dl (2.5-4.0) 07/12/21 00:10 Albumin/Globulin Ratio 1.3 (0.9-2) 07/12/21 00:10 SARS-CoV-2, RNA, NAAT NEGATIVE (NEGATIVE) 07/12/21 00:10 Impressions Pelvis X-Ray 07/11/21 00:00 SINGLE VIEW PELVIS; 3 VIEWS LEFT FEMUR CLINICAL HISTORY: Fall. Left leg pain. FINDINGS: An AP view of the pelvis with AP, frog-leg, and crosstable lateral views of the left femur are compared to study dated 12/23/2019. The skeletal structures are osteopenic. There is no radiographic evidence of acute fracture involving the right hip or the bony pelvis. There is a nondisplaced fracture through the greater trochanter of the left femur no additional acute fracture of the left femur is seen. 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 A bipolar right hip arthroplasty is in near-anatomic alignment. There is mild joint space narrowing of left hip. There is avascular necrosis of the left femoral head. Mild degenerative sclerosis is noted in the sacroiliac joints. The left knee joint is grossly maintained. Surgical clips are seen around the left knee. The overlying soft tissues are within normal limits. Surgical clips project over the right groin. There is atherosclerotic calcification of the femoral arteries. IMPRESSION: 1. Nondisplaced fracture through the greater trochanter of the left femur. 2. No additional acute fracture is seen involving the left femur. 3. No fracture is seen involving the right hip or the bony pelvis. 4. Avascular necrosis of the left femoral head. 5. Additional chronic and postoperative findings as above. Electronically signed by: Christos Ochoa M.D. 07/11/2021 10:07 PM Femur X-Ray 07/11/21 21:35 SINGLE VIEW PELVIS; 3 VIEWS LEFT FEMUR CLINICAL HISTORY: Fall. Left leg pain. FINDINGS: An AP view of the pelvis with AP, frog-leg, and crosstable lateral views of the left femur are compared to study dated 12/23/2019. The skeletal structures are osteopenic. There is no radiographic evidence of acute fracture involving the right hip or the bony pelvis. There is a nondisplaced fracture through the greater trochanter of the left femur no additional acute fracture of the left femur is seen. 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 A bipolar right hip arthroplasty is in near-anatomic alignment. There is mild joint space narrowing of left hip. There is avascular necrosis of the left femoral head. Mild degenerative sclerosis is noted in the sacroiliac joints. The left knee joint is grossly maintained. Surgical clips are seen around the left knee. The overlying soft tissues are within normal limits. Surgical clips project over the right groin. There is atherosclerotic calcification of the femoral arteries. IMPRESSION: 1. Nondisplaced fracture through the greater trochanter of the left femur. 2. No additional acute fracture is seen involving the left femur. 3. No fracture is seen involving the right hip or the bony pelvis. 4. Avascular necrosis of the left femoral head. 5. Additional chronic and postoperative findings as above. Electronically signed by: Christos Ochoa M.D. 07/11/2021 10:07 PM Code Status & VTE Plan Code Status DNR/DNI VTE Prophylaxis Plan VTE Prophylaxis will be ordered: Yes PG Care Time/CCT Total # of Minutes Spent Total Time Spent with Patient: Total time spent is greater than 50% in coordination of care (as documented) at patient's floor/unit and/or counseling patient: Coding Level of Care Code 50860 Initial Inpt Care Lvl 3 Diagnoses Closed fracture of greater trochanter of left femur S72.112A Hypertension I10 At high risk for falls Z91.81 Aortic stenosis I35.0 COPD (chronic obstructive pulmonary disease) J44.9 CKD (chronic kidney disease), stage III N18.30 Chronic kidney disease stage 3 subtype: unspecified whether 3a or 3b Diabetes mellitus E11.9; Z79.4 Diabetes mellitus type: type 2 Diabetes mellitus prison insulin use: with computer terminal operator use Diabetes mellitus complication status: without complication Depression F32.9 Secondary hyperparathyroidism of renal origin N25.81 Vitamin D deficiency E55.9 CAD (coronary artery disease) I25.708 Coronary Disease-Associated Artery/Lesion type: bypass graft [place] vs. transplanted heart: tribal heart Associated angina: with stable angina Dyslipidemia E78.5 Cardiac pacemaker Z95.0 (1) CKD (chronic kidney disease), stage III Chronic kidney disease stage 3 subtype: unspecified whether 3a or 3b Qualified Code(s): N18.30 - Chronic kidney disease, stage 3 unspecified (2) Diabetes mellitus Diabetes mellitus type: type 2 Diabetes mellitus prison insulin use: with computer terminal operator use Diabetes mellitus complication status: without complication Qualified Code(s): E11.9 - Type 2 diabetes mellitus without complications; Z79.4 - intermediate (current) use of insulin (3) CAD (coronary artery disease) Coronary Disease-Associated Artery/Lesion type: bypass graft [place] vs. transplanted heart: tribal heart Associated angina: with stable angina Qualified Code(s): I25.708 - Atherosclerosis of coronary artery bypass graft(s), unspecified, with other forms of angina pectoris
[2021-07-12] MEDS ORDERED: HYDROmorphone INJ 0.5 MG/0.5 ML SYR IV STA (02:15)
[2021-07-12] MEDS ORDERED: HYDROmorphone INJ 0.5 MG/0.5 ML SYR IV PRN ×2 (02:43)
[2021-07-12] MEDS ORDERED: MAGNESIUM HYDROXIDE SUSP 30 ML UDC PO PRN (02:43)
[2021-07-12] MEDS ORDERED: NALOXONE HCL 0.4 MG/1 ML VIAL/CARP IV PRN (02:43)
[2021-07-12] MEDS ORDERED: ACETAMINOPHEN 1000 MG/100 ML IV IV PRN (02:43)
[2021-07-12] MEDS ORDERED: ONDANSETRON INJ 2 MG/ML 2 ML VIAL IV PRN (02:43)
[2021-07-12] MEDS ORDERED: ALBUT/IPRATROP 3MG/0.5MG NEB 3 ML VIAL INH PRN (02:43)
[2021-07-12] MEDS ORDERED: bisacodyL 10 MG SUPP PR PRN (02:43)
[2021-07-12] MEDS ORDERED: HYDROCODONE/ACETAMOPHEN 5/325MG TAB PO PRN ×2 (02:43)
[2021-07-12] MEDS ORDERED: ARTIFICIAL TEARS OP OINT 3.5 GM TUBE OP PRN (03:20)
[2021-07-12 03:25] LABS: Basophils # (auto) 0.01 K/uL (0-0.2); Basophils % (auto) 0.1 %; Eosinophils # (auto) 0.03 K/uL (0-0.5); Eosinophils % (auto) 0.2 %; Hematocrit (blood only) 38.9 % (37-47); Hemoglobin 13.3 g/dL (12.0-16.0); Immature Granulocytes # (auto) 0.04 K/uL (0.00-0.02); Immature Granulocytes % (auto) 0.3 %; Lymphocytes # (auto) 1.12 K/uL (1.2-3.4); Mean Corpuscular Hemoglobin 30.1 pg (25-34); Mean Corpuscular Hgb Conc 34.2 g/dL (32-36); Mean Platelet Volume 11.2 fL (7.4-10.4); Monocytes # (auto) 0.53 K/uL (0.11-0.59); Monocytes % (auto) 3.8 %; Neutrophils # (auto) 12.28 K/uL (1.4-6.5); Neutrophils % (auto) 87.6 %; Platelet Count 168 K/uL (130-400); RDW Coefficient of Variation 14.6 % (11.5-14.5); RDW Standard Deviation 47.2 fL (36.4-46.3); Red Blood Count 4.42 M/uL (4.2-5.4); White Blood Count 14.01 K/uL (4.8-10.8)
[2021-07-12] MEDS ORDERED: ACETAMINOPHEN 65 ML IV PRN ×2 (03:25→03:30)
[2021-07-12 03:47] LABS: Albumin Level 4.2 gm/dl (3.4-5.0); BUN Creatinine Ratio 30.1 (10-20); Creatinine Clr Calc Pharmacy 25.8 ml/min; Est GFR (African American) 56.2 ml/min; Est GFR (Non-African American) 48.5 ml/min; Phosphorus 2.8 mg/dl (2.5-4.9); Potassium 3.3 mmol/L (3.5-5.1)
[2021-07-12] MEDS: PANTOprazole 40 MG TAB PO SCH (05:50)
[2021-07-12] MEDS ORDERED: TRANEXAMIC ACID / 0.7% NACL 1,000 MG/100 ML BAG IV SCH ×2 (06:00→06:30)
[2021-07-12] MEDS: SERTRALINE HCL 50 MG TABLET PO SCH (09:03)
[2021-07-12] MEDS: VALSARTAN 80 MG TAB PO SCH (09:03)
[2021-07-12] MEDS: carvediloL 12.5 MG TAB PO SCH ×2 (09:04→18:21)
[2021-07-12] MEDS: FUROSEMIDE 20 MG TAB PO SCH (09:04)
[2021-07-12] MEDS: FERROUS SULFATE 325 MG TAB PO SCH (09:04)
[2021-07-12] MEDS: GABAPENTIN 100 MG CAP PO SCH ×3 (09:04→20:16)
[2021-07-12] MEDS: CALCIUM 600MG + VIT D 400 IU TAB PO SCH (09:05)
[2021-07-12] MEDS: ASCORBIC ACID 500 MG TAB PO SCH (09:05)
--- NOTE | 2021-07-12 09:41 | XRay Report ---
XR chest 1V portable CLINICAL HISTORY: sob TECHNIQUE: Single frontal radiograph of the chest was obtained. Comparison: Comparison is made to chest radiograph 04/01/2021 FINDINGS: Median sternotomy wires are unchanged. Calcified aortic knob is seen. Valvular prosthesis is again no kasandra. Interstitial reticular opacities are seen without evidence of airspace opacity. No evidence of p leural effusion or pneumothorax. IMPRESSION: Interstitial reticular opacities are seen compatible with scarring. No airspace opacities are seen. ACT 112: Negative or not required by law. Electronically signed by: Leo Easton M.D. 07/12/2021 9:39 AM
--- NOTE | 2021-07-12 14:04 | History & Physical Bridge Note ---
Date of Service July 12, 2021 History & Physical Bridge Note I have examined the patient, reviewed the History & Physical and in the interval since the performance of the History & Physical I have noted the following changes of clinical significance: no changes noted Patient seen in ER awaiting bed on nursing floor. Resting comfortably in bed. She states she had been in her house and felt like her legs just gave out on her, resulting in falling on her hip. Tender to palpation and hard to ambulate, although she states this is her ultimate goal. She denies any LOC or hitting of her head. Of note, she does follow with CHF clinic and has moderate-severe aortic stenosis. MM dry on exam, but avoiding further IVF and provided drink/diet ordered Imaging consistent with non-displaced fracture through greater trochanter of LEFT femur * States mild-moderate amount of discomfort in the hip but no need for m edication at this time. * Discussed to ask if anything needed. * Will also ask RN to apply ice to affected area. Placed consult for orthopedics solution lead this morning, messaged Dr Angeles. He initially reviewed films and felt non-operative and could eat but would get CT for further eval. However, patient followed with [facility] in the past, imaging ordered by myself and consult changed. Discussed with patient -- she is ok with drinking/eating today and requesting sip of water currently (provided). Patient initially on room air but asked, as I had her in the past, about oxygen use. She states she is typically on this at home. 1L at rest, 2 L with exertion. Diet ordered for today, CT hip pending Orthopedics consult in place but expect will be non-operative. Keep NPO after midnight in case plan changes
--- NOTE | 2021-07-12 17:21 | CT Scan Report ---
CT hip LT wo con CLINICAL HISTORY: troch fracture TECHNIQUE: Multidetector row helical CT of the left hip was performed without intravenous contrast. C oronal and sagittal reformations were obtained. Automated dose lowering techniques and/or adjustment according to patient size were utilized for this examination. CT DOSE: 248.81 mGy.cm Comparison: None available at the time of this dictation. FINDINGS: The peak screws transfix the femoral neck. No evidence of acute fracture is seen. Mild degenerative c hanges are seen in the hip joint. No joint effusion is seen. The soft tissues are unremarkable. IMPRESSION: No evidence of acute fracture or dislocation. ACT 112: Negative or not required by law. Electronically signed by: eLo Easton M.D. 07/12/2021 5:18 PM
[2021-07-12] MEDS ORDERED: POTASSIUM CHLORIDE CRTAB 20 MEQ TABCR PO STA (17:50)
[2021-07-12] MEDS ORDERED: MAGNESIUM SULFATE / D5W 1 GM/100 ML BAG IV ONE (18:00)
[2021-07-12] MEDS: CALCITRIOL 0.25 MCG CAPSULE PO SCH (18:21)
[2021-07-12] MEDS: DOCUSATE SODIUM/SENNA 50/8.6MG TAB PO SCH (20:16)
[2021-07-12] MEDS: LOVASTATIN 20 MG TAB PO SCH (20:16)
[2021-07-13] MEDS: PANTOprazole 40 MG TAB PO SCH (06:29)
--- NOTE | 2021-07-13 07:57 | Electrocardiogram Report ---
Test Reason : Blood Pressure : / mmHG Vent. Rate : 083 BPM Atrial Rate : 083 BPM P-R Int : 166 ms QRS Dur : 146 ms QT Int : 452 ms P-R-T Axes : 026 -85 098 degrees QTc Int : 531 ms Atrial-sensed ventricular-paced rhythm Abnormal ECG When compared with ECG of 19-APR-2021 19:47, Vent. rate has increased BY 3 BPM Confirmed by Francisco Javier Pantoja ([id number]) on 07/13/2021 7:57:18 AM Referred By: REFERRED SELF Confirmed By:Francisco Javier Pantoja
[2021-07-13] MEDS: GABAPENTIN 100 MG CAP PO SCH ×3 (08:43→20:16)
[2021-07-13] MEDS: carvediloL 12.5 MG TAB PO SCH ×2 (08:43→17:47)
[2021-07-13] MEDS: ASCORBIC ACID 500 MG TAB PO SCH (08:43)
[2021-07-13] MEDS: FUROSEMIDE 20 MG TAB PO SCH (08:43)
[2021-07-13] MEDS: CALCIUM 600MG + VIT D 400 IU TAB PO SCH (08:43)
[2021-07-13] MEDS: SERTRALINE HCL 50 MG TABLET PO SCH (08:43)
[2021-07-13] MEDS: FERROUS SULFATE 325 MG TAB PO SCH (08:43)
[2021-07-13] MEDS: VALSARTAN 80 MG TAB PO SCH (08:44)
[2021-07-13 08:48] LABS: Basophils # (auto) 0.01 K/uL (0-0.2); Basophils % (auto) 0.1 %; Eosinophils # (auto) 0.32 K/uL (0-0.5); Hematocrit (blood only) 39.1 % (37-47); Hemoglobin 12.8 g/dL (12.0-16.0); Immature Granulocytes # (auto) 0.03 K/uL (0.00-0.02); Immature Granulocytes % (auto) 0.4 %; Lymphocytes # (auto) 1.78 K/uL (1.2-3.4); Lymphocytes % (auto) 22.2 %; Mean Corpuscular Hemoglobin 29.1 pg (25-34); Mean Corpuscular Hgb Conc 32.7 g/dL (32-36); Mean Corpuscular Volume 88.9 fL (80-100); Mean Platelet Volume 11.3 fL (7.4-10.4); Monocytes # (auto) 0.41 K/uL (0.11-0.59); Monocytes % (auto) 5.1 %; Neutrophils # (auto) 5.46 K/uL (1.4-6.5); Neutrophils % (auto) 68.2 %; Platelet Count 144 K/uL (130-400); White Blood Count 8.01 K/uL (4.8-10.8)
--- NOTE | 2021-07-13 09:04 | Hospitalist Progress Note ---
Date of Service July 13, 2021 Assessment & Plan (1) Closed fracture of greater trochanter of left femur: Plan: Closed fracture of greater trochanter of left femur on xray- Status post mechanical fall CT pelvis without fracture WBC elevated on admit, likely stress from fall/fracture Normalized on repeat, afebrile Orthopedics consulted ---> NON OPERATIVE Pain control, antiemetics prn Ice to affected area PT/OT consulted Of note, patient on chronic O2 at baseline, 1L at rest and 2L with ambulation but as discussed with daughter Aimee today, she has not been using Denies sob/cp and SpO2 96%. Likely does use when sleeping though Asked RN to titrate WBC normalized, but will check UA given reports of some concerns for dementia/confusion at home CM to follow/referrals to rehab as likely needed (2) Hypertension: Plan: Hypertension/CAD mod-severe aortic stenosis-monitor volume status (DRY TODAY, place lasix on hold, avoiding IVF but encourage PO intake) BP 149/89 Continue carvedilol 12.5 mg p.o. twice daily and valsartan 20 mg p.o. every morning (3) CAD (coronary artery disease): Plan: See above NO CP/SOB reported (4) Aortic stenosis: Plan: See above (5) CKD (chronic kidney disease), stage III: Plan: CKD stage III/secondary hyperparathyroidism/vitamin D deficiency- Creatinine 1.00 upon admission, with range 0.97-1.50 Cr 1.22 and looks slightly dehydrated on examination --> diet ordered/encourage PO. 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 (10) Depression: Plan: Continue sertraline (11) Diabetes mellitus: Plan: History of diabetes mellitus, currently on no medications, with glucose of 135 on admission labs Last A1c 6.5 Will order ISS while inpatient Monitor BSGs (12) At high risk for falls: Plan: Led to current issue with left femur fracture Plan: PT/OT consulted, likely need inpatient rehab CM to follow Updated daughter on phone 07/13 Admission and Anticipated Discharge Date Admission Date: July 12, 2021 Supervising Physician Co-Signing Physician Notes PA Supervision Note: I did not personally see or examine the patient today, but I verified all godinez points of LONG Tao's assessment and plan with the following exceptions/additions: None Subjective Patient evaluated this morning. Resting comfortably in bed. Pain controlled at rest, will ask nursing to provide ice pack as in place in ER. No cp/sob reported. Daughter Aimee on phone updated. States thinks her mom has been having some worsening dementia over the past couple of months ever since brain injury. Does have brother with history of dementia as well. Answers orientation questions appropriately, however does have periods of forgetfulness. Daughter states patient does sometimes use the oxygen at night but knows she hasn't been using much during the day as the tubing is wound up and in the other room at home. She is awaiting to hear from CM about rehab options. Discussed likely non- operative and CT imaging without pelvic fracture noted and would order PT/OT evals so that we can start the process. She does note her brother was on phone when her mom fell and she responded instantly that "I fell" and did not hit her head. Questions/concerns addressed at this time. MM dry, however ordering diet and avoiding IVF at this time, especially given her . Review of Systems Review of Systems: All systems reviewed & are unremarkable except as noted in HPI & below Physical Exam Physical Exam: General: frail elderly female sleeping in bed, no acute distress upon arrival HEENT: head normocephalic, atraumatic, mm DRY, trachea midline without deviation Resp: CTAb, diminished in the bases, no w/c/r, on 2L NC with SpO2 96% (reported using at home but daughter said she doesn't) CV: paced on monitor, +harsh systolic murmur, no edema, no calf tenderness, cap refill wnl GI:+BS, soft, RLQ palpable stool : genao with concentrated yellow urine MSK/Neuro: NVI, L hip trochanter tender to palpation, leg lengths equal, some pain with abduction/adduction Psych: alert, oriented to person/place, intermittent confusion with time, pleasant and cooperative Skin: cool, dry Results & Data Results & Data ([facility]) Vital Signs (Past 12 Hours) Vital Signs Temp Pulse Resp BP Pulse Ox 07/13/21 07:53 36.9 C 74 16 149/89 H 96 07/13/21 03:22 36.9 C 76 16 111/61 93 07/12/21 23:00 36.7 C 76 20 101/55 L 94 Laboratory Results 07/13/21 07/13/21 07/13/21 Range/Units 09:57 08:25 08:25 WBC 8.01 (4.8-10.8) K/uL RBC 4.40 (4.2-5.4) M/uL Hgb 12.8 (12.0-16.0) g/dL Hct 39.1 (37-47) % MCV 88.9 (80-100) fL MCH 29.1 (25-34) pg MCHC 32.7 (32-36) g/dL RDW Std Deviation 49.0 H (36.4-46.3) fL RDW Coeff of Carlos 15.0 H (11.5-14.5) % Plt Count 144 (130-400) K/uL MPV 11.3 H (7.4-10.4) fL Immature Gran % (Auto) 0.4 % Neut % (Auto) 68.2 % Lymph % (Auto) 22.2 % [place] % (Auto) 5.1 % Eos % (Auto) 4.0 % Baso % (Auto) 0.1 % Neut # (Auto) 5.46 (1.4-6.5) K/uL Lymph # (Auto) 1.78 (1.2-3.4) K/uL [place] # (Auto) 0.41 (0.11-0.59) K/uL Eos # (Auto) 0.32 (0-0.5) K/uL Baso # (Auto) 0.01 (0-0.2) K/uL Immature Gran # (Auto) 0.03 H (0.00-0.02) K/uL Sodium 138 (136-145) mmol/L Potassium TNP Chloride 103 (98-107) mmol/L Carbon Dioxide 29 (21-32) mmol/L Anion Gap 6 (3-11) BUN 36 H (6-23) mg/dl Creatinine 1.22 H (0.6-1.2) mg/dl Est Cr Clr Drug Dosing 22.9 ml/min Est GFR ( Amer) 45.8 ml/min Est GFR (Non-Af Amer) 39.5 ml/min BUN/Creatinine Ratio 29.5 H (10-20) Glucose 167 H (70-99(Fasting)) mg/dl Calcium 9.5 (8.5-10.1) mg/dl Phosphorus 3.2 (2.5-4.9) mg/dl Magnesium 2.2 (1.7-2.4) mg/dl Albumin 4.0 (3.4-5.0) gm/dl 25-OH Vitamin D Total Pending Diagnostic Findings Chest X-Ray 07/12/21 00:58 XR chest 1V portable CLINICAL HISTORY: sob TECHNIQUE: Single frontal radiograph of the chest was obtained. Comparison: Comparison is made to chest radiograph 04/01/2021 FINDINGS: Median sternotomy wires are unchanged. Calcified aortic knob is seen. Valvular prosthesis is again noted. Interstitial reticular opacities are seen without evidence of airspace opacity. No evidence of pleural effusion or pneumothorax. IMPRESSION: Interstitial reticular opacities are seen compatible with scarring. No airspace opacities are seen. ACT 112: Negative or not required by law. Electronically signed by: Leo Easton M.D. 07/12/2021 9:[address] 07/12/21 12:51 CT hip LT wo con CLINICAL HISTORY: troch fracture TECHNIQUE: Multidetector row helical CT of the left hip was performed without intravenous contrast. Coronal and sagittal reformations were obtained. Automated dose lowering techniques and/or adjustment according to patient size were utilized for this examination. CT DOSE: 248.81 mGy.cm Comparison: None available at the time of this dictation. FINDINGS: The peak screws transfix the femoral neck. No evidence of acute fracture is seen . Mild degenerative changes are seen in the hip joint. No joint effusion is seen. The soft tissues are unremarkable. IMPRESSION: No evidence of acute fracture or dislocation. ACT 112: Negative or not required by law. Electronically signed by: Leo Easton M.D. 07/12/2021 5:18 PM PG Care Time/CCT Total # of Minutes Spent Total Time Spent with Patient: Total time spent is greater than 50% in coordination of care (as documented) at patient's floor/unit and/or counseling patient: Coding Level of Care Code 65186 Subseq Hosp Care Lvl 2 Diagnoses Closed fracture of greater trochanter of left femur S72.112A Hypertension I10 CAD (coronary artery disease) I25.708 Associated angina: with stable angina Coronary Disease-Associated Artery/Lesion type: bypass graft [place] vs. transplanted heart: [place] heart Aortic stenosis I35.0 CKD (chronic kidney disease), stage III N18.30 Chronic kidney disease stage 3 subtype: unspecified whether 3a or 3b Secondary hyperparathyroidism of renal origin N25.81 Vitamin D deficiency E55.9 Dyslipidemia E78.5 Cardiac pacemaker Z95.0 Depression F32.9 Diabetes mellitus E11.9; Z79.4 Diabetes mellitus complication status: without complication Diabetes mellitus button pusher insulin use: with button pusher use Diabetes mellitus type: type 2 At high risk for falls Z91.81 (1) Diabetes mellitus Diabetes mellitus complication status: without complication Diabetes mellitus button pusher insulin use: with button pusher use Diabetes mellitus type: type 2 Qualified Code(s): E11.9 - Type 2 diabetes mellitus without complications; Z79.4 - senior living (current) use of insulin (2) CKD (chronic kidney disease), stage III Chronic kidney disease stage 3 subtype: unspecified whether 3a or 3b Qualified Code(s): N18.30 - Chronic kidney disease, stage 3 unspecified (3) CAD (coronary artery disease) Associated angina: with stable angina Coronary Disease-Associated Artery/Lesion type: bypass graft [place] vs. transplanted heart: [place] heart Qualified Code(s): I25.708 - Atherosclerosis of coronary artery bypass graft(s), unspecified, with other forms of angina pectoris
--- NOTE | 2021-07-13 10:10 | Orthopedic Consultation ---
Date of Consultation July 13, 2021 Assessment & Plan (1) Closed fracture of greater trochanter of left femur: X-rays and CT scan reviewed. Plain films showing what definitely appears to be a tip of the greater trochanter fracture. CT scan showing no obvious fracture through the intertrochanteric region. With patient's exam, most likely fracture is limited to her greater trochanter. This is nonsurgical in nature. She can be up with PT and OT protocols, weightbearing as tolerated. Pain control as needed. Ice to the left lateral hip. Patient can follow-up with Dr Nava at [facility] in 10-16 days for follow-up care and radiographs of her left hip. Supervising Physician Co-Signing Physician Notes Patient seen and examined. Agree with PA plan of care. Palmer Nava DO History of Present Illness Reason for Consultation: Left greater trochanter fracture Attending Physician: Nicki Teague MD History of Present Illness Patient is a 86-year-old female with a past medical history including hypertension, headaches, generalized weakness, subarachnoid hemorrhage, subdural hematoma, aortic stenosis, PAM, COPD, diabetes mellitus, ambulatory dysfunction, neuropathy of both upper extremities, depression, secondary hyperparathyroidism, chronic combined systolic and diastolic CHF, paroxysmal atrial fibrillation, cardiomyopathy, cardiac pacemaker for complete AV block, dyslipidemia and diabetic peripheral neuropathy. Patient had an apparent mechanical fall at home while she was walking to another room in her home. She had pain in the left hip and was having difficulty ambulating. She was brought to the emergency room here at [facility] and was seen by the staff. X-rays were taken. Initial films were showing to the greater trochanter fracture. Patient has previous ORIF of the left hip with 7.3 cannulated screws. Currently she is sleeping upon entering her room however she is easily awoken. She answers questions appropriately. She appears comfortable at this time. Allergies Allergy/AdvReac Type Severity Reaction Status Date / Time tamsulosin Allergy Severe SHORTNESS Verified 07/12/21 01:39 OF BREATH butalbital Allergy Intermediate SHORTNESS Verified 07/12/21 01:39 OF BREATH nitrofurantoin Allergy Unknown Unknown Verified 07/12/21 01:39 [From Macrobid] Cephalosporins AdvReac Severe TONGUE Verified 07/12/21 01:39 SWELLING WITH KEFLEX- tolerating keflex 03/16/20 levetiracetam AdvReac Intermediate RASH Verified 07/12/21 01:39 morphine AdvReac Intermediate hallucinati Verified 07/12/21 01:39 ons Sulfa (Sulfonamide AdvReac Unknown "SULFA Verified 07/12/21 01:39 Antibiotics) DRUGS" - UNKNOWN Home Medications Medication Instructions Recorded Confirmed Type calcium carbonate 500 mg-vitamin 1 tab PO QAM #0 tab 04/09/20 07/12/21 History D3 5 mcg (200 unit) tablet (Os-Emile 500 + D3) methenamine hippurate 1 gram tablet 1 g PO BID 08/25/20 07/12/21 History ascorbic acid (vitamin C) 500 mg 500 mg PO QAM 11/19/20 07/12/21 History tablet ipratropium 0.5 mg-albuterol 3 mg 3 ml INHALATION Q4H PRN #180 ml 01/28/21 07/12/21 Rx (2.5 mg base)/3 mL nebulization soln peg 400-propylene glycol 0.4 %-0.3 1 drp OPHTHALMIC (EYE) Q8H PRN 04/01/21 07/12/21 History % eye gel drops (Systane Gel) hospital bed #1 ea 04/05/21 07/12/21 Rx blood sugar diagnostic (OneTouch #100 ea 04/06/21 07/12/21 Rx Verio test strips) lancets 32 gauge (Easy Touch Twist #100 ea 04/06/21 07/12/21 Rx Lancets) conjugated estrogens 0.625 mg/gram 1 applic VAGINAL UD 04/19/21 07/12/21 History vaginal cream (Premarin) calcitriol 0.25 mcg capsule 0.25 mcg PO 3XWK #36 cap 04/22/21 07/12/21 Rx ferrous sulfate 325 mg (65 mg 325 mg PO QAM #90 tab 05/14/21 07/12/21 Rx iron) tablet gabapentin 100 mg capsule 100 mg PO TID #270 cap 05/14/21 07/12/21 Rx lovastatin 40 mg tablet 40 mg PO PM #90 tab 05/14/21 07/12/21 Rx pantoprazole 40 mg tablet,delayed 40 mg PO DAILY@0600 #90 tab 05/14/21 07/12/21 Rx release carvedilol 12.5 mg tablet 12.5 mg PO BID #10 tab 05/20/21 07/12/21 Rx furosemide 20 mg tablet 20 mg PO QAM #90 tab 05/20/21 07/12/21 Rx sertraline 50 mg tablet 50 mg PO QAM #90 tab 05/20/21 07/12/21 Rx valsartan 40 mg tablet 20 mg PO QAM #45 tab 06/17/21 07/12/21 Rx Patient History Medical History Abscess of hand, right Acute UTI (urinary tract infection) Allergy to multiple antibiotics Anemia Cardiac pacemaker for complete hear block Cellulitis of right hand Cerebellar infarct Chronic renal disease, stage III Depression Diabetes mellitus Extremity atherosclerosis with intermittent claudication Fracture of pubic ramus Gait instability History of chest pain Hypertension Lower abdominal pain Secondary hyperparathyroidism of renal origin Solitary pulmonary nodule Transient ischemic attack (TIA) Vitamin D deficiency Surgical History History of nasal surgery Hx of carpal tunnel repair Family History Other Family history non-contributory Social History Smoking Status: Never smoker Second Hand Exposure: No; Hx Alcohol Use: No Hx Substance Use: No Preferred Language: French Communication Ability: Effective Visual Impairment: No Limitations Financial Accountant Required: No Beliefs That Will Affect Care: None marital status: / Current Living Situation: Family How many Children do You have: 3 Feels Safe at Home: Yes Childhood Exposure to Second-Hand Smoke: Yes caffeine: Yes Dental Care, Regularly: No Physical Activity Frequency: 1-2 Times per Week Seatbelt Use: always Sunscreen Use: No Assistive Devices: Cane, Oxygen - at Night and Walker Physical Exam Physical Exam: On examination of her left lower extremity, leg lengths appear near equal. Palpation of the lateral hip causes her mild to moderate tenderness. She is nontender at the left knee on palpation as well as the left ankle. She has good range of motion of her left ankle. Internal and external rotation of the left hip causes her moderate discomfort in the greater trochanter region. She is denying groin pain at this time. I can take her through gentle flexion of the hip at this time. She does have some mild to moderate pain near the end of extension. She does have some mild pain with abd uction and adduction. No obvious pain with axial loading. I was able to take her knee through gentle range of motion while doing range of motion of her left hip. She denies any left knee pain. Denies any discomfort of the right lower extremity at this time. No gross motor or sensory loss seen at this time. Results & Data ([facility]) Vital Signs (Past 12 Hours) Vital Signs Temp Pulse Resp BP Pulse Ox 07/13/21 07:53 36.9 C 74 16 149/89 H 96 07/13/21 03:22 36.9 C 76 16 111/61 93 07/12/21 23:00 36.7 C 76 20 101/55 L 94 Laboratory Results Laboratory Results WBC 8.01 K/uL (4.8-10.8) 07/13/21 08:25 RBC 4.40 M/uL (4.2-5.4) 07/13/21 08:25 Hgb 12.8 g/dL (12.0-16.0) 07/13/21 08:25 Hct 39.1 % (37-47) 07/13/21 08:25 MCV 88.9 fL (80-100) 07/13/21 08:25 MCH 29.1 pg (25-34) 07/13/21 08:25 MCHC 32.7 g/dL (32-36) 07/13/21 08:25 RDW Std Deviation 49.0 fL (36.4-46.3) H 07/13/21 08:25 RDW Coeff of Carlos 15.0 % (11.5-14.5) H 07/13/21 08:25 Plt Count 144 K/uL (130-400) 07/13/21 08:25 MPV 11.3 fL (7.4-10.4) H 07/13/21 08:25 Immature Gran % (Auto) 0.4 % 07/13/21 08:25 Neut % (Auto) 68.2 % 07/13/21 08:25 Lymph % (Auto) 22.2 % 07/13/21 08:25 [place] % (Auto) 5.1 % 07/13/21 08:25 Eos % (Auto) 4.0 % 07/13/21 08:25 Baso % (Auto) 0.1 % 07/13/21 08:25 Neut # (Auto) 5.46 K/uL (1.4-6.5) 07/13/21 08:25 Lymph # (Auto) 1.78 K/uL (1.2-3.4) 07/13/21 08:25 [place] # (Auto) 0.41 K/uL (0.11-0.59) 07/13/21 08:25 Eos # (Auto) 0.32 K/uL (0-0.5) 07/13/21 08:25 Baso # (Auto) 0.01 K/uL (0-0.2) 07/13/21 08:25 Immature Gran # (Auto) 0.03 K/uL (0.00-0.02) H 07/13/21 08:25 Sodium 138 mmol/L (136-145) 07/12/21 03:10 Potassium 3.3 mmol/L (3.5-5.1) L 07/12/21 03:10 Chloride 101 mmol/L (98-107) 07/12/21 03:10 Carbon Dioxide 25 mmol/L (21-32) 07/12/21 03:10 Anion Gap 12 (3-11) H 07/12/21 03:10 BUN 31 mg/dl (6-23) H 07/12/21 03:10 Creatinine 1.03 mg/dl (0.6-1.2) 07/12/21 03:10 Est Cr Clr Drug Dosing 25.8 ml/min 07/12/21 03:10 Est GFR ( Amer) 56.2 ml/min 07/12/21 03:10 Est GFR (Non-Af Amer) 48.5 ml/min 07/12/21 03:10 BUN/Creatinine Ratio 30.1 (10-20) H 07/12/21 03:10 Glucose 227 mg/dl (70-99(Fasting)) H 07/12/21 03:10 Calcium 10.0 mg/dl (8.5-10.1) 07/12/21 03:10 Phosphorus 2.8 mg/dl (2.5-4.9) 07/12/21 03:10 Magnesium 1.7 mg/dl (1.7-2.4) 07/12/21 09:13 Total Bilirubin 0.5 mg/dl (0.2-1.0) 07/12/21 00:10 AST 15 U/L (13-39) 07/12/21 00:10 ALT 12 U/L (7-52) 07/12/21 00:10 Alkaline Phosphatase 61 U/L (34-104) 07/12/21 00:10 Total Creatine Kinase 46 U/L (26-192) 07/12/21 00:10 Total Protein 7.7 gm/dl (6.0-8.3) 07/12/21 00:10 Albumin 4.2 gm/dl (3.4-5.0) 07/12/21 03:10 Globulin 3.3 gm/dl (2.5-4.0) 07/12/21 00:10 Albumin/Globulin Ratio 1.3 (0.9-2) 07/12/21 00:10 SARS-CoV-2, RNA, NAAT NEGATIVE (NEGATIVE) 07/12/21 00:10 Blood Type A Positive 07/12/21 03:10 Antibody Screen NEGATIVE 07/12/21 03:10 Impressions Pelvis X-Ray 07/11/21 00:00 SINGLE VIEW PELVIS; 3 VIEWS LEFT FEMUR CLINICAL HISTORY: Fall. Left leg pain. FINDINGS: An AP view of the pelvis with AP, frog-leg, and crosstable lateral views of the left femur are compared to study dated 12/23/2019. The skeletal structures are osteopenic. There is no radiographic evidence of acute fracture involving the right hip or the bony pelvis. There is a nondisplaced fracture through the greater trochanter of the left femur no additional acute fracture of the left femur is seen. 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 A bipolar right hip arthroplasty is in near-anatomic alignment. There is mild joint space narrowing of left hip. There is avascular necrosis of the left femoral head. Mild degenerative sclerosis is noted in the sacroiliac joints. The left knee joint is grossly maintained. Surgical clips are seen around the left knee. The overlying soft tissues are within normal limits. Surgical clips project over the right groin. There is atherosclerotic calcification of the femoral arteries. IMPRESSION: 1. Nondisplaced fracture through the greater trochanter of the left femur. 2. No additional acute fracture is seen involving the left femur. 3. No fracture is seen involving the right hip or the bony pelvis. 4. Avascular necrosis of the left femoral head. 5. Additional chronic and postoperative findings as above. Electronically signed by: Christos Ochoa M.D. 07/11/2021 10:07 PM Femur X-Ray 07/11/21 21:35 SINGLE VIEW PELVIS; 3 VIEWS LEFT FEMUR CLINICAL HISTORY: Fall. Left leg pain. FINDINGS: An AP view of the pelvis with AP, frog-leg, and crosstable lateral views of the left femur are compared to study dated 12/23/2019. The skeletal structures are osteopenic. There is no radiographic evidence of acute fracture involving the right hip or the bony pelvis. There is a nondisplaced fracture through the greater trochanter of the left femur no additional acute fracture of the left femur is seen. 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 A bipolar right hip arthroplasty is in near-anatomic alignment. There is mild joint space narrowing of left hip. There is avascular necrosis of the left femoral head. Mild degenerative sclerosis is noted in the sacroiliac joints. The left knee joint is grossly maintained. Surgical clips are seen around the left knee. The overlying soft tissues are within normal limits. Surgical clips project over the right groin. There is atherosclerotic calcification of the femoral arteries. IMPRESSION: 1. Nondisplaced fracture through the greater trochanter of the left femur. 2. No additional acute fracture is seen involving the left femur. 3. No fracture is seen involving the right hip or the bony pelvis. 4. Avascular necrosis of the left femoral head. 5. Additional chronic and postoperative findings as above. Electronically signed by: Christos Ochoa M.D. 07/11/2021 10:07 PM Electronically signed by: Leo Easton M.D. 07/12/2021 9:[address] 07/12/21 12:51 CT hip LT wo con CLINICAL HISTORY: troch fracture TECHNIQUE: Multidetector row helical CT of the left hip was performed without intravenous contrast. Coronal and sagittal reformations were obtained. Automated dose lowering techniques and/or adjustment according to patient size were utilized for this examination. CT DOSE: 248.81 mGy.cm Comparison: None available at the time of this dictation. FINDINGS: The peak screws transfix the femoral neck. No evidence of acute fracture is seen. Mild degenerative changes are seen in the hip joint. No joint effusion is seen. The soft tissues are unremarkable. IMPRESSION: No evidence of acute fracture or dislocation. ACT 112: Negative or not required by law. Electronically signed by: Leo Easton M.D. 07/12/2021 5:18 PM
[2021-07-13 10:31] LABS: Anion Gap 6 (3-11); BUN Creatinine Ratio 29.5 (10-20); Blood Urea Nitrogen 36 mg/dl (6-23); Calcium 9.5 mg/dl (8.5-10.1); Carbon Dioxide 29 mmol/L (21-32); Chloride 103 mmol/L (98-107); Creatinine Clr Calc Pharmacy 22.9 ml/min; Est GFR (African American) 45.8 ml/min; Est GFR (Non-African American) 39.5 ml/min; Glucose 167 mg/dl (70-99(Fasting)); Magnesium 2.2 mg/dl (1.7-2.4); Phosphorus 3.2 mg/dl (2.5-4.9); Sodium 138 mmol/L (136-145)
[2021-07-13] MEDS ORDERED: GLUCOSE 10 TABS/TUBE PO PRN (10:56)
[2021-07-13] MEDS ORDERED: DEXTROSE 50% 50 ML SYRINGE IV PRN (10:56)
[2021-07-13] MEDS ORDERED: GLUCAGON FOR INJ 1 MG VIAL SQ PRN (10:56)
[2021-07-13] MEDS ORDERED: GLUCOSE 40% GEL 15 GM TUBE PO PRN (10:56)
[2021-07-13] MEDS ORDERED: CARBOHYDRATES FOR HYPOGLYCEMIA PO PRN (10:56)
[2021-07-13] MEDS: INSULIN ASPART PER UNIT SC SCH ×3 (12:50→20:21)
[2021-07-13 12:51] LABS: Appearance Urine Clear (Clear); Bacteria Urine Automated Negative (Negative); Bilirubin Urine Negative (Negative); Blood Urine Negative (Negative); Color Urine Yellow; Glucose Urine UA Negative (Negative); Ketones Urine Negative (Negative); Leukocyte Esterase Urine 1+ (Negative); Nitrite Urine Negative (Negative); Protein Urine Negative (Negative); RBC Urine Automated 0-4 /hpf (0-4); Specific Gravity Urine 1.015 (1.000-1.030); Urobilinogen Urine Negative (Negative); pH Urine 5.5 (4.5-7.5)
[2021-07-13] MEDS: LOVASTATIN 20 MG TAB PO SCH (20:15)
[2021-07-13] MEDS: DOCUSATE SODIUM/SENNA 50/8.6MG TAB PO SCH (20:15)
[2021-07-14] MEDS: PANTOprazole 40 MG TAB PO SCH (05:52)
--- NOTE | 2021-07-14 08:22 | Hospitalist Progress Note ---
Date of Service July 14, 2021 Assessment & Plan (1) Closed fracture of greater trochanter of left femur: Plan: Closed fracture of greater trochanter of left femur on xray- Status post mechanical fall CT pelvis without fracture WBC elevated on admit, likely stress from fall/fracture Normalized on repeat, afebrile UA not indicative of infection Orthopedics consulted ---> NON OPERATIVE Pain control, antiemetics prn Ice to affected area Denies sob/cp and SpO2 94 on ROOM AIR (no longer using O2 at home per daughter) PT/OT consulted -- awaiting official evals CM to follow/referrals to rehab as likely needed (2) Hypertension: Plan: Hypertension/CAD mod-severe aortic stenosis-monitor volume status Dry 07/13 and lasix placed on hold Improvement in mm, BP stable at 122/76 and on room air Monitor overnight, resume lasix if needed Continue carvedilol, valsartan (3) CAD (coronary artery disease): Plan: See above NO CP/SOB reported (4) Aortic stenosis: Plan: See above (5) CKD (chronic kidney disease), stage III: Plan: CKD stage III/secondary hyperparathyroidism/vitamin D deficiency- Creatinine 1.00 upon admission, with range 0.97-1.50 Cr 1.13 lasix placed on hold for today, likely resume in AM Continue calcitriol, and calcium carbonate BMP in AM (6) Secondary hyperparathyroidism of renal origin: Plan: See above (7) Vitamin D deficiency: Plan: See above -- last Vit D level 37.9 repeat 44.5 (8) Dyslipidemia: Plan: Continue lovastatin 40 mg every evening (9) Cardiac pacemaker: Plan: 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 (10) Depression: Plan: Continue sertraline (11) Diabetes mellitus: Plan: History of diabetes mellitus, currently on no medications, with glucose of 135 on admission labs Last A1c 6.5 BSgs acceptable (12) At high risk for falls: Plan: Led to current issue with left femur fracture Plan: PT/OT consulted, likely need inpatient rehab CM to follow Updated daughter on phone 07/13 Admission and Anticipated Discharge Date Admission Date: July 12, 2021 Supervising Physician Co-Signing Physician Notes PA Supervision Note: I did not personally see or examine the patient today, but I verified all godinez points of LONG Tao's assessment and plan with the following exceptions/additions: None Subjective Patient evaluated this afternoon. Doing well. No pain presently, some with movement but controlled. Not yet seen by therapy but awaiting evaluations and will look into rehab. Discussed updated daughter and patient currently without other complaints. No fever chills, chest pain, shortness of breath, abdominal pain, nausea, or vomiting. Currently 94% on room air. Review of Systems Review of Systems: All systems reviewed & are unremarkable except as noted in HPI & below Physical Exam Physical Exam: General: frail elderly female sleeping in bed, no acute distress upon arrival HEENT: head normocephalic, atraumatic, mm slightly dry, trachea midline without deviation Resp: CTAb, diminished in the bases, no w/c/r, on ROOM AIR CV: paced on monitor, +harsh systolic murmur, no edema, no calf tenderness, cap refill wnl GI:+BS, soft, non-tender : genao with concentrated yellow urine MSK/Neuro: NVI, L hip trochanter tender to palpation, leg lengths equal, some pain with abduction/adduction Psych: alert, oriented to person/place, intermittent confusion with time, pleasant and cooperative Skin: cool, dry Results & Data Results & Data ([facility]) Vital Signs (Past 12 Hours) Vital Signs Temp Pulse Pulse Resp BP Pulse Ox 07/14/21 07:33 36.5 C 64 18 138/72 93 07/14/21 03:08 36.9 C 72 16 111/71 93 07/13/21 23:21 36.5 C 67 16 115/72 93 07/13/21 23:16 67 Laboratory Results 07/14/21 07/14/21 07/14/21 Range/Units 11:22 08:15 08:15 WBC 8.29 (4.8-10.8) K/uL RBC 4.59 (4.2-5.4) M/uL Hgb 13.3 (12.0-16.0) g/dL Hct 40.7 (37-47) % MCV 88.7 (80-100) fL MCH 29.0 (25-34) pg MCHC 32.7 (32-36) g/dL RDW Std Deviation 48.2 H (36.4-46.3) fL RDW Coeff of Carlos 14.9 H (11.5-14.5) % Plt Count 160 (130-400) K/uL MPV 11.5 H (7.4-10.4) fL Immature Gran % (Auto) 0.2 % Neut % (Auto) 66.2 % Lymph % (Auto) 24.2 % [place] % (Auto) 5.3 % Eos % (Auto) 4.0 % Baso % (Auto) 0.1 % Neut # (Auto) 5.48 (1.4-6.5) K/uL Lymph # (Auto) 2.01 (1.2-3.4) K/uL [place] # (Auto) 0.44 (0.11-0.59) K/uL Eos # (Auto) 0.33 (0-0.5) K/uL Baso # (Auto) 0.01 (0-0.2) K/uL Immature Gran # (Auto) 0.02 (0.00-0.02) K/uL Sodium 135 L (136-145) mmol/L Potassium 3.9 (3.5-5.1) mmol/L Chloride 99 (98-107) mmol/L Carbon Dioxide 30 (21-32) mmol/L Anion Gap 6 (3-11) BUN 35 H (6-23) mg/dl Creatinine 1.13 (0.6-1.2) mg/dl Est Cr Clr Drug Dosing 24.7 ml/min Est GFR ( Amer) 50.3 ml/min Est GFR (Non-Af Amer) 43.4 ml/min BUN/Creatinine Ratio 31.0 H (10-20) Glucose 144 H (70-99(Fasting)) mg/dl POC Glucose 187 H (70-99) mg/dl Calcium 9.8 (8.5-10.1) mg/dl Phosphorus 3.4 (2.5-4.9) mg/dl Albumin 4.0 (3.4-5.0) gm/dl Vitamin B12 (180-914) pg/ml 07/14/21 07/14/21 07/13/21 Range/Units 08:15 07:24 20:21 WBC (4.8-10.8) K/uL RBC (4.2-5.4) M/uL Hgb (12.0-16.0) g/dL Hct (37-47) % MCV (80-100) fL MCH (25-34) pg MCHC (32-36) g/dL RDW Std Deviation (36.4-46.3) fL RDW Coeff of Carlos (11.5-14.5) % Plt Count (130-400) K/uL MPV (7.4-10.4) fL Immature Gran % (Auto) % Neut % (Auto) % Lymph % (Auto) % [place] % (Auto) % Eos % (Auto) % Baso % (Auto) % Neut # (Auto) (1.4-6.5) K/uL Lymph # (Auto) (1.2-3.4) K/uL [place] # (Auto) (0.11-0.59) K/uL Eos # (Auto) (0-0.5) K/uL Baso # (Auto) (0-0.2) K/uL Immature Gran # (Auto) (0.00-0.02) K/uL Sodium (136-145) mmol/L Potassium (3.5-5.1) mmol/L Chloride (98-107) mmol/L Carbon Dioxide (21-32) mmol/L Anion Gap (3-11) BUN (6-23) mg/dl Creatinine (0.6-1.2) mg/dl Est Cr Clr Drug Dosing ml/min Est GFR ( Amer) ml/min Est GFR (Non-Af Amer) ml/min BUN/Creatinine Ratio (10-20) Glucose (70-99(Fasting)) mg/dl POC Glucose 146 H 108 H (70-99) mg/dl Calcium (8.5-10.1) mg/dl Phosphorus (2.5-4.9) mg/dl Albumin (3.4-5.0) gm/dl Vitamin B12 444 (180-914) pg/ml 07/13/21 Range/Units 16:48 WBC (4.8-10.8) K/uL RBC (4.2-5.4) M/uL Hgb (12.0-16.0) g/dL Hct (37-47) % MCV (80-100) fL MCH (25-34) pg MCHC (32-36) g/dL RDW Std Deviation (36.4-46.3) fL RDW Coeff of Carlos (11.5-14.5) % Plt Count (130-400) K/uL MPV (7.4-10.4) fL Immature Gran % (Auto) % Neut % (Auto) % Lymph % (Auto) % [place] % (Auto) % Eos % (Auto) % Baso % (Auto) % Neut # (Auto) (1.4-6.5) K/uL Lymph # (Auto) (1.2-3.4) K/uL [place] # (Auto) (0.11-0.59) K/uL Eos # (Auto) (0-0.5) K/uL Baso # (Auto) (0-0.2) K/uL Immature Gran # (Auto) (0.00-0.02) K/uL Sodium (136-145) mmol/L Potassium (3.5-5.1) mmol/L Chloride (98-107) mmol/L Carbon Dioxide (21-32) mmol/L Anion Gap (3-11) BUN (6-23) mg/dl Creatinine (0.6-1.2) mg/dl Est Cr Clr Drug Dosing ml/min Est GFR ( Amer) ml/min Est GFR (Non-Af Amer) ml/min BUN/Creatinine Ratio (10-20) Glucose (70-99(Fasting)) mg/dl POC Glucose 182 H (70-99) mg/dl Calcium (8.5-10.1) mg/dl Phosphorus (2.5-4.9) mg/dl Albumin (3.4-5.0) gm/dl Vitamin B12 (180-914) pg/ml PG Care Time/CCT Total # of Minutes Spent Total Time Spent with Patient: Total time spent is greater than 50% in coordination of care (as documented) at patient's floor/unit and/or counseling patient: Coding Level of Care Code 38487 Subseq Hosp Care Lvl 1 Diagnoses Closed fracture of greater trochanter of left femur S72.112A Hypertension I10 CAD (coronary artery disease) I25.708 Associated angina: with stable angina Coronary Disease-Associated Artery/Lesion type: bypass graft [place] vs. transplanted heart: [place] heart Aortic stenosis I35.0 CKD (chronic kidney disease), stage III N18.30 Chronic kidney disease stage 3 subtype: unspecified whether 3a or 3b Secondary hyperparathyroidism of renal origin N25.81 Vitamin D deficiency E55.9 Dyslipidemia E78.5 Cardiac pacemaker Z95.0 Depression F32.9 Diabetes mellitus E11.9; Z79.4 Diabetes mellitus complication status: without complication Diabetes mellitus assisted insulin use: with assisted use Diabetes mellitus type: type 2 At high risk for falls Z91.81 (1) Diabetes mellitus Diabetes mellitus complication status: without complication Diabetes mellitus assisted insulin use: with manager terminal use Diabetes mellitus type: type 2 Qualified Code(s): E11.9 - Type 2 diabetes mellitus without complications; Z79.4 - buttermaker continuous churn (current) use of insulin (2) CKD (chronic kidney disease), stage III Chronic kidney disease stage 3 subtype: unspecified whether 3a or 3b Qualified Code(s): N18.30 - Chronic kidney disease, stage 3 unspecified (3) CAD (coronary artery disease) Associated angina: with stable angina Coronary Disease-Associated Artery/Lesion type: bypass graft [place] vs. transplanted heart: [place] heart Qualified Code(s): I25.708 - Atherosclerosis of coronary artery bypass graft(s), unspecified, with other forms of angina pectoris
[2021-07-14 08:39] LABS: Basophils # (auto) 0.01 K/uL (0-0.2); Basophils % (auto) 0.1 %; Eosinophils # (auto) 0.33 K/uL (0-0.5); Hematocrit (blood only) 40.7 % (37-47); Hemoglobin 13.3 g/dL (12.0-16.0); Immature Granulocytes # (auto) 0.02 K/uL (0.00-0.02); Immature Granulocytes % (auto) 0.2 %; Lymphocytes # (auto) 2.01 K/uL (1.2-3.4); Lymphocytes % (auto) 24.2 %; Mean Corpuscular Hgb Conc 32.7 g/dL (32-36); Mean Corpuscular Volume 88.7 fL (80-100); Mean Platelet Volume 11.5 fL (7.4-10.4); Monocytes # (auto) 0.44 K/uL (0.11-0.59); Monocytes % (auto) 5.3 %; Neutrophils # (auto) 5.48 K/uL (1.4-6.5); Neutrophils % (auto) 66.2 %; Platelet Count 160 K/uL (130-400); RDW Coefficient of Variation 14.9 % (11.5-14.5); RDW Standard Deviation 48.2 fL (36.4-46.3); Red Blood Count 4.59 M/uL (4.2-5.4); White Blood Count 8.29 K/uL (4.8-10.8)
[2021-07-14 09:08] LABS: Calcium 9.8 mg/dl (8.5-10.1); Creatinine Clr Calc Pharmacy 24.7 ml/min; Est GFR (African American) 50.3 ml/min; Est GFR (Non-African American) 43.4 ml/min; Phosphorus 3.4 mg/dl (2.5-4.9); Potassium 3.9 mmol/L (3.5-5.1)
[2021-07-14] MEDS: INSULIN ASPART PER UNIT SC SCH ×4 (09:08→20:44)
[2021-07-14] MEDS: carvediloL 12.5 MG TAB PO SCH ×2 (09:09→17:03)
[2021-07-14] MEDS: ASCORBIC ACID 500 MG TAB PO SCH (09:10)
[2021-07-14] MEDS: CALCIUM 600MG + VIT D 400 IU TAB PO SCH (09:11)
[2021-07-14] MEDS: SERTRALINE HCL 50 MG TABLET PO SCH (09:11)
[2021-07-14] MEDS: FERROUS SULFATE 325 MG TAB PO SCH (09:11)
[2021-07-14] MEDS: GABAPENTIN 100 MG CAP PO SCH ×3 (09:11→20:48)
--- NOTE | 2021-07-14 16:52 | CT Scan Report ---
CT OF THE HEAD WITHOUT CONTRAST CLINICAL HISTORY: complaint of headache last night, hx bleed COMPARISON STUDY: Head CT June 02, 2021. CT DOSE: 1294.77 mGycm TECHNIQUE: Helical axial images of the head were obtained without IV contrast. Automated exposure con trol was utilized for the study. A dose lowering technique was utilized adhering to the principles o f ALARA. FINDINGS: This exam is mildly compromised by motion artifact. No acute intracranial hemorrhage, midli ne shift or mass effect is present. Ventricular dilatation is unchanged and likely due to central atr ophy. White matter hypodensities are unchanged and favor small vessel disease. 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 The basal cisterns are patent. No extra-axial collections a re present. There are no findings to suggest acute dural sinus thrombosis or acute territorial infarc t. No significant calvarial abnormalities are present. Visualized portions of the sinuses and mastoid air cells are clear. There is bilateral basal ganglia calcification. IMPRESSION: 1. No acute intracranial findings. No change in appearance of the brain. 2. Exam mildly compromised by motion artifact. ACT 112: Negative or not required by law. Electronically signed by: Sonido Issa M.D. 07/14/2021 4:51 PM
[2021-07-14] MEDS: ACETAMINOPHEN 500 MG TAB PO PRN ×2 (17:01→20:50)
[2021-07-14] MEDS: CALCITRIOL 0.25 MCG CAPSULE PO SCH (17:52)
[2021-07-14] MEDS: LOVASTATIN 20 MG TAB PO SCH (20:47)
[2021-07-14] MEDS: DOCUSATE SODIUM/SENNA 50/8.6MG TAB PO SCH (20:51)
[2021-07-15] MEDS: PANTOprazole 40 MG TAB PO SCH (05:50)
[2021-07-15] MEDS: INSULIN ASPART PER UNIT SC SCH ×4 (07:35→20:38)
--- NOTE | 2021-07-15 08:02 | Hospitalist Progress Note ---
Date of Service July 15, 2021 Assessment & Plan (1) Closed fracture of greater trochanter of left femur: Plan: Closed fracture of greater trochanter of left femur on xray- Status post mechanical fall CT pelvis without fracture WBC elevated on admit, likely stress from fall/fracture Normalized on repeat, afebrile UA not indicative of infection Orthopedics consulted ---> NON OPERATIVE Pain control, antiemetics prn Ice to affected area PT/OT rec SNF CM following and refs sent -- no bed available today (2) Hypertension: Plan: Hypertension/CAD mod-severe aortic stenosis-monitor volume status Dry 07/13 and lasix placed on hold, and then held valsartan BP improved and remain stable 126/65 --> Remains on RA 96% and will continue to hold these Consider resuming valsartan in AM but would continue to hold lasix vs consider QOD dosing Remains on carvedilol, HR paced in the 60-70s (3) CAD (coronary artery disease): Plan: See above NO CP/SOB reported and remains on room air (4) Aortic stenosis: Plan: See above (5) CKD (chronic kidney disease), stage III: Plan: CKD stage III/secondary hyperparathyroidism/vitamin D deficiency- Creatinine 1.00 upon admission, with range 0.97-1.50 Cr 1.09 after holding valsartan/lasix monitor BMP in AM Continue calcitriol, ca-carbonate monitor BMP (6) Secondary hyperparathyroidism of renal origin: Plan: See above (7) Vitamin D deficiency: Plan: See above -- last Vit D level 37.9 repeat 44.5 (8) Dyslipidemia: Plan: Continue lovastatin 40 mg every evening (9) Cardiac pacemaker: Plan: 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 (10) Depression: Plan: Continue sertraline (11) Diabetes mellitus: Plan: History of diabetes mellitus, currently on no medications, with glucose of 135 on admission labs Last A1c 6.5 BSgs acceptable (12) At high risk for falls: Plan: Led to current issue with left femur fracture Plan: Awaiting bed at [facility] Updated daughter on phone 07/15 Admission and Anticipated Discharge Date Admission Date: July 12, 2021 Supervising Physician Co-Signing Physician Notes LONG Supervision Note: I did not personally see or examine the patient today, but I verified all godinez points of LONG Tao's assessment and plan with the following exceptions/additions: None Subjective Patient evaluated this morning. Doing well. Pain controlled Said she was up with nursing and walked a little and did well. Pain but tolerable. No need for anything at this time. Eating/drinking no issues. +BM this morning, needed assistance to get cleaned up. Discussed awaiting bed at rehab ...she states "all I'm doing it sitting here". Provided reassurance and hopefully bed in next 1-2 days. Updated daughter Amanda on phone today -- she visited last evening and thought she was looking great. Questions/concerns addressed at this time. Review of Systems Review of Systems: All systems reviewed & are unremarkable except as noted in HPI & below Physical Exam Physical Exam: General: frail elderly female sitting up in chair at bedside, NAD HEENT: head normocephalic, atraumatic, mmm, trachea midline without deviation Resp: CTAB, diminished in the bases, no w/c/r, on ROOM AIR 96% CV: paced on monitor, +harsh systolic murmur, no edema, no calf tenderness, cap refill wnl GI:+BS, soft, non-tender : genao with concentrated yellow urine MSK/Neuro: NVI, L hip trochanter tender to palpation (DECREASED), leg lengths equal, some pain with abduction/adduction Psych: alert, oriented to person/place, intermittent confusion with time, pleasant and cooperative Skin: cool, dry Results & Data Results & Data ([facility]) Vital Signs (Past 12 Hours) Vital Signs Temp Pulse Pulse Resp BP Pulse Ox 07/15/21 07:46 36.6 C 70 18 152/72 H 94 07/15/21 07:43 64 07/15/21 02:47 36.6 C 68 18 157/72 H 94 07/14/21 23:34 66 07/14/21 23:26 36.5 C 64 18 118/64 91 Laboratory Results 07/15/21 07/14/21 07/14/21 Range/Units 07:33 20:25 17:08 WBC (4.8-10.8) K/uL RBC (4.2-5.4) M/uL Hgb (12.0-16.0) g/dL Hct (37-47) % MCV (80-100) fL MCH (25-34) pg MCHC (32-36) g/dL RDW Std Deviation (36.4-46.3) fL RDW Coeff of Carlos (11.5-14.5) % Plt Count (130-400) K/uL MPV (7.4-10.4) fL Immature Gran % (Auto) % Neut % (Auto) % Lymph % (Auto) % [place] % (Auto) % Eos % (Auto) % Baso % (Auto) % Neut # (Auto) (1.4-6.5) K/uL Lymph # (Auto) (1.2-3.4) K/uL [place] # (Auto) (0.11-0.59) K/uL Eos # (Auto) (0-0.5) K/uL Baso # (Auto) (0-0.2) K/uL Immature Gran # (Auto) (0.00-0.02) K/uL Sodium (136-145) mmol/L Potassium (3.5-5.1) mmol/L Chloride (98-107) mmol/L Carbon Dioxide (21-32) mmol/L Anion Gap (3-11) BUN (6-23) mg/dl Creatinine (0.6-1.2) mg/dl Est Cr Clr Drug Dosing ml/min Est GFR ( Amer) ml/min Est GFR (Non-Af Amer) ml/min BUN/Creatinine Ratio (10-20) Glucose (70-99(Fasting)) mg/dl POC Glucose 148 H 140 H 121 H (70-99) mg/dl Calcium (8.5-10.1) mg/dl Phosphorus (2.5-4.9) mg/dl Albumin (3.4-5.0) gm/dl Vitamin B12 (180-914) pg/ml 07/14/21 07/14/21 07/14/21 Range/Units 11:22 08:15 08:15 WBC 8.29 (4.8-10.8) K/uL RBC 4.59 (4.2-5.4) M/uL Hgb 13.3 (12.0-16.0) g/dL Hct 40.7 (37-47) % MCV 88.7 (80-100) fL MCH 29.0 (25-34) pg MCHC 32.7 (32-36) g/dL RDW Std Deviation 48.2 H (36.4-46.3) fL RDW Coeff of Carlos 14.9 H (11.5-14.5) % Plt Count 160 (130-400) K/uL MPV 11.5 H (7.4-10.4) fL Immature Gran % (Auto) 0.2 % Neut % (Auto) 66.2 % Lymph % (Auto) 24.2 % [place] % (Auto) 5.3 % Eos % (Auto) 4.0 % Baso % (Auto) 0.1 % Neut # (Auto) 5.48 (1.4-6.5) K/uL Lymph # (Auto) 2.01 (1.2-3.4) K/uL [place] # (Auto) 0.44 (0.11-0.59) K/uL Eos # (Auto) 0.33 (0-0.5) K/uL Baso # (Auto) 0.01 (0-0.2) K/uL Immature Gran # (Auto) 0.02 (0.00-0.02) K/uL Sodium 135 L (136-145) mmol/L Potassium 3.9 (3.5-5.1) mmol/L Chloride 99 (98-107) mmol/L Carbon Dioxide 30 (21-32) mmol/L Anion Gap 6 (3-11) BUN 35 H (6-23) mg/dl Creatinine 1.13 (0.6-1.2) mg/dl Est Cr Clr Drug Dosing 24.7 ml/min Est GFR ( Amer) 50.3 ml/min Est GFR (Non-Af Amer) 43.4 ml/min BUN/Creatinine Ratio 31.0 H (10-20) Glucose 144 H (70-99(Fasting)) mg/dl POC Glucose 187 H (70-99) mg/dl Calcium 9.8 (8.5-10.1) mg/dl Phosphorus 3.4 (2.5-4.9) mg/dl Albumin 4.0 (3.4-5.0) gm/dl Vitamin B12 (180-914) pg/ml 07/14/21 Range/Units 08:15 WBC (4.8-10.8) K/uL RBC (4.2-5.4) M/uL Hgb (12.0-16.0) g/dL Hct (37-47) % MCV (80-100) fL MCH (25-34) pg MCHC (32-36) g/dL RDW Std Deviation (36.4-46.3) fL RDW Coeff of Carlos (11.5-14.5) % Plt Count (130-400) K/uL MPV (7.4-10.4) fL Immature Gran % (Auto) % Neut % (Auto) % Lymph % (Auto) % [place] % (Auto) % Eos % (Auto) % Baso % (Auto) % Neut # (Auto) (1.4-6.5) K/uL Lymph # (Auto) (1.2-3.4) K/uL [place] # (Auto) (0.11-0.59) K/uL Eos # (Auto) (0-0.5) K/uL Baso # (Auto) (0-0.2) K/uL Immature Gran # (Auto) (0.00-0.02) K/uL Sodium (136-145) mmol/L Potassium (3.5-5.1) mmol/L Chloride (98-107) mmol/L Carbon Dioxide (21-32) mmol/L Anion Gap (3-11) BUN (6-23) mg/dl Creatinine (0.6-1.2) mg/dl Est Cr Clr Drug Dosing ml/min Est GFR ( Amer) ml/min Est GFR (Non-Af Amer) ml/min BUN/Creatinine Ratio (10-20) Glucose (70-99(Fasting)) mg/dl POC Glucose (70-99) mg/dl Calcium (8.5-10.1) mg/dl Phosphorus (2.5-4.9) mg/dl Albumin (3.4-5.0) gm/dl Vitamin B12 444 (180-914) pg/ml PG Care Time/CCT Total # of Minutes Spent Total Time Spent with Patient: Total time spent is greater than 50% in coordination of care (as documented) at patient's floor/unit and/or counseling patient: Coding Level of Care Code 62699 Subseq Hosp Care Lvl 1 Diagnoses Closed fracture of greater trochanter of left femur S72.112A Hypertension I10 CAD (coronary artery disease) I25.708 Associated angina: with stable angina Coronary Disease-Associated Artery/Lesion type: bypass graft [place] vs. transplanted heart: [place] heart Aortic stenosis I35.0 CKD (chronic kidney disease), stage III N18.30 Chronic kidney disease stage 3 subtype: unspecified whether 3a or 3b Secondary hyperparathyroidism of renal origin N25.81 Vitamin D deficiency E55.9 Dyslipidemia E78.5 Cardiac pacemaker Z95.0 Depression F32.9 Diabetes mellitus E11.9; Z79.4 Diabetes mellitus complication status: without complication Diabetes mellitus extermination supervisor insulin use: with longterm use Diabetes mellitus type: type 2 At high risk for falls Z91.81 (1) Diabetes mellitus Diabetes mellitus complication status: without complication Diabetes mellitus extermination supervisor insulin use: with longterm use Diabetes mellitus type: type 2 Qualified Code(s): E11.9 - Type 2 diabetes mellitus without complications; Z79.4 - FPC (current) use of insulin (2) CKD (chronic kidney disease), stage III Chronic kidney disease stage 3 subtype: unspecified whether 3a or 3b Qualified Code(s): N18.30 - Chronic kidney disease, stage 3 unspecified (3) CAD (coronary artery disease) Associated angina: with stable angina Coronary Disease-Associated Artery/Lesion type: bypass graft [place] vs. transplanted heart: [place] heart Qualified Code(s): I25.708 - Atherosclerosis of coronary artery bypass graft(s), unspecified, with other forms of angina pectoris
[2021-07-15] MEDS: SERTRALINE HCL 50 MG TABLET PO SCH (08:09)
[2021-07-15] MEDS: ASCORBIC ACID 500 MG TAB PO SCH (08:09)
[2021-07-15] MEDS: GABAPENTIN 100 MG CAP PO SCH ×3 (08:10→20:43)
[2021-07-15] MEDS: FERROUS SULFATE 325 MG TAB PO SCH (08:10)
[2021-07-15] MEDS: carvediloL 12.5 MG TAB PO SCH ×2 (08:10→17:23)
[2021-07-15] MEDS: CALCIUM 600MG + VIT D 400 IU TAB PO SCH (08:10)
[2021-07-15 09:50] LABS: Hematocrit (blood only) 38.2 % (37-47); Hemoglobin 12.7 g/dL (12.0-16.0); Mean Corpuscular Hemoglobin 29.6 pg (25-34); Mean Corpuscular Hgb Conc 33.2 g/dL (32-36); Mean Platelet Volume 11.5 fL (7.4-10.4); Platelet Count 145 K/uL (130-400); RDW Coefficient of Variation 14.6 % (11.5-14.5); RDW Standard Deviation 47.8 fL (36.4-46.3); Red Blood Count 4.29 M/uL (4.2-5.4); White Blood Count 6.07 K/uL (4.8-10.8)
[2021-07-15 10:18] LABS: BUN Creatinine Ratio 32.1 (10-20); Calcium 9.6 mg/dl (8.5-10.1); Creatinine Clr Calc Pharmacy 25.6 ml/min; Est GFR (African American) 52.5 ml/min; Est GFR (Non-African American) 45.3 ml/min; Magnesium 1.9 mg/dl (1.7-2.4)
[2021-07-15] MEDS: ACETAMINOPHEN 500 MG TAB PO PRN (20:42)
[2021-07-15] MEDS: DOCUSATE SODIUM/SENNA 50/8.6MG TAB PO SCH (20:42)
[2021-07-15] MEDS: LOVASTATIN 20 MG TAB PO SCH (20:43)
[2021-07-16] MEDS: PANTOprazole 40 MG TAB PO SCH (06:00)
--- NOTE | 2021-07-16 08:14 | Hospitalist Progress Note ---
Date of Service July 16, 2021 Assessment & Plan (1) Closed fracture of greater trochanter of left femur: Plan: Closed fracture of greater trochanter of left femur on xray- Status post mechanical fall CT pelvis without fracture WBC elevated on admit, likely stress from fall/fracture Normalized on repeat, afebrile UA not indicative of infection Orthopedics consulted ---> NON OPERATIVE Pain control, antiemetics prn Ice to affected area PT/OT rec SNF CM following and refs sent -- no bed available today (2) Hypertension: Plan: Hypertension/CAD mod-severe aortic stenosis-monitor volume status Dry 07/13 and lasix placed on hold, and then held valsartan --> continuing to hold and BP 129/58,remains 94% on RA ?if needing both of these at d/c given fall on admission and not volume overloaded with underlying aortic stenosis Continues on carvedilol Will monitor off diuretics/resume if needed HR paced in the 60-70s (3) CAD (coronary artery disease): Plan: See above NO CP/SOB reported and remains on room air (4) Aortic stenosis: Plan: See above f/u with Cardiology as outpatient for severe (5) CKD (chronic kidney disease), stage III: Plan: CKD stage III/secondary hyperparathyroidism/vitamin D deficiency- Creatinine 1.00 upon admission, with range 0.97-1.50 Cr 1.09 after holding valsartan/lasix monitor BMP in AM Continue calcitriol, ca-carbonate monitor BMP (6) Secondary hyperparathyroidism of renal origin: Plan: See above (7) Vitamin D deficiency: Plan: See above -- last Vit D level 37.9 repeat 44.5 (8) Dyslipidemia: Plan: Continue lovastatin 40 mg every evening (9) Cardiac pacemaker: Plan: 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 -- no beds 07/16, likely remain inpatient through weekend Updated daughter on phone 07/15 Admission and Anticipated Discharge Date Admission Date: July 12, 2021 Supervising Physician Co-Signing Physician Notes PA Supervision Note: I did not personally see or examine the patient today, but I verified all godinez points of LONG Tao's assessment and plan with the following exceptions/additions: None Subjective Patient evaluated this afternoon. Up in chair eating lunch, pain controlled. Awaiting bed at rehab. She does voice frustration in continued waiting but discussed need to ahve rehab as not able to return home alone in current status. Daughter also wanting rehab. Eating/drinking no issue. Continues to move her bowels,, formed stool. No further syncopal episode or feeling like legs giving out. Discussed having held her BP medications and BP is stable. No CP or shortness of breath. Will monitor off of these but discussed possible patient becoming dehydrated at home with her aortic stenosis and maybe doesn't need both of these or either for right now. Will monitor. Review of Systems Review of Systems: All systems reviewed & are unremarkable except as noted in HPI & below Physical Exam Physical Exam: General: frail elderly female sitting up in chair at bedside, NAD HEENT: head normocephalic, atraumatic, mmm, trachea midline without deviation Resp: CTAB, diminished in the bases, no w/c/r, on ROOM AIR 96% CV: paced on monitor, +harsh systolic murmur, no edema, no calf tenderness, cap refill wnl GI:+BS, soft, non-tender MSK/Neuro: NVI, L hip trochanter tender to palpation (DECREASED), leg lengths equal, some pain with abduction/adduction Psych: alert, oriented to person/place, intermittent confusion with time, pleasant and cooperative Skin: cool, dry Results & Data Results & Data ([facility]) Vital Signs (Past 12 Hours) Vital Signs Temp Pulse Pulse Resp BP Pulse Ox 07/16/21 06:42 36.5 C 64 16 148/68 H 93 07/16/21 03:06 36.5 C 63 18 126/72 93 07/15/21 23:55 72 Laboratory Results 07/16/21 07/15/21 07/15/21 Range/Units 07:48 20:32 16:31 WBC (4.8-10.8) K/uL RBC (4.2-5.4) M/uL Hgb (12.0-16.0) g/dL Hct (37-47) % MCV (80-100) fL MCH (25-34) pg MCHC (32-36) g/dL RDW Std Deviation (36.4-46.3) fL RDW Coeff of Carlos (11.5-14.5) % Plt Count (130-400) K/uL MPV (7.4-10.4) fL Sodium (136-145) mmol/L Potassium (3.5-5.1) mmol/L Chloride (98-107) mmol/L Carbon Dioxide (21-32) mmol/L Anion Gap (3-11) BUN (6-23) mg/dl Creatinine (0.6-1.2) mg/dl Est Cr Clr Drug Dosing ml/min Est GFR ( Amer) ml/min Est GFR (Non-Af Amer) ml/min BUN/Creatinine Ratio (10-20) Glucose (70-99(Fasting)) mg/dl POC Glucose 156 H 161 H 111 H (70-99) mg/dl Calcium (8.5-10.1) mg/dl Magnesium (1.7-2.4) mg/dl TSH (0.300-4.500) uIu/ml 07/15/21 07/15/21 07/15/21 Range/Units 11:54 09:05 09:05 WBC (4.8-10.8) K/uL RBC (4.2-5.4) M/uL Hgb (12.0-16.0) g/dL Hct (37-47) % MCV (80-100) fL MCH (25-34) pg MCHC (32-36) g/dL RDW Std Deviation (36.4-46.3) fL RDW Coeff of Carlos (11.5-14.5) % Plt Count (130-400) K/uL MPV (7.4-10.4) fL Sodium 137 (136-145) mmol/L Potassium 4.0 (3.5-5.1) mmol/L Chloride 102 (98-107) mmol/L Carbon Dioxide 28 (21-32) mmol/L Anion Gap 7 (3-11) BUN 35 H (6-23) mg/dl Creatinine 1.09 (0.6-1.2) mg/dl Est Cr Clr Drug Dosing 25.6 ml/min Est GFR ( Amer) 52.5 ml/min Est GFR (Non-Af Amer) 45.3 ml/min BUN/Creatinine Ratio 32.1 H (10-20) Glucose 240 H (70-99(Fasting)) mg/dl POC Glucose 201 H (70-99) mg/dl Calcium 9.6 (8.5-10.1) mg/dl Magnesium 1.9 (1.7-2.4) mg/dl TSH 2.191 (0.300-4.500) uIu/ml 07/15/21 Range/Units 09:05 WBC 6.07 (4.8-10.8) K/uL RBC 4.29 (4.2-5.4) M/uL Hgb 12.7 (12.0-16.0) g/dL Hct 38.2 (37-47) % MCV 89.0 (80-100) fL MCH 29.6 (25-34) pg MCHC 33.2 (32-36) g/dL RDW Std Deviation 47.8 H (36.4-46.3) fL RDW Coeff of Carlos 14.6 H (11.5-14.5) % Plt Count 145 (130-400) K/uL MPV 11.5 H (7.4-10.4) fL Sodium (136-145) mmol/L Potassium (3.5-5.1) mmol/L Chloride (98-107) mmol/L Carbon Dioxide (21-32) mmol/L Anion Gap (3-11) BUN (6-23) mg/dl Creatinine (0.6-1.2) mg/dl Est Cr Clr Drug Dosing ml/min Est GFR ( Amer) ml/min Est GFR (Non-Af Amer) ml/min BUN/Creatinine Ratio (10-20) Glucose (70-99(Fasting)) mg/dl POC Glucose (70-99) mg/dl Calcium (8.5-10.1) mg/dl Magnesium (1.7-2.4) mg/dl TSH (0.300-4.500) uIu/ml PG Care Time/CCT Total # of Minutes Spent Total Time Spent with Patient: Total time spent is greater than 50% in coordination of care (as documented) at patient's floor/unit and/or counseling patient: Coding Level of Care Code 46629 Subseq Hosp Care Lvl 1 Diagnoses Closed fracture of greater trochanter of left femur S72.112A Hypertension I10 CAD (coronary artery disease) I25.708 Associated angina: with stable angina Coronary Disease-Associated Artery/Lesion type: bypass graft [place] vs. transplanted heart: [place] heart Aortic stenosis I35.0 CKD (chronic kidney disease), stage III N18.30 Chronic kidney disease stage 3 subtype: unspecified whether 3a or 3b Secondary hyperparathyroidism of renal origin N25.81 Vitamin D deficiency E55.9 Dyslipidemia E78.5 Cardiac pacemaker Z95.0 Depression F32.9 Diabetes mellitus E11.9; Z79.4 Diabetes mellitus complication status: without complication Diabetes mellitus long-term insulin use: with long-term use Diabetes mellitus type: type 2 At high risk for falls Z91.81 (1) Diabetes mellitus Diabetes mellitus complication status: without complication Diabetes mellitus slusher operator insulin use: with slusher operator use Diabetes mellitus type: type 2 Qualified Code(s): E11.9 - Type 2 diabetes mellitus without complications; Z79.4 - manager school (current) use of insulin (2) CKD (chronic kidney disease), stage III Chronic kidney disease stage 3 subtype: unspecified whether 3a or 3b Qualified Code(s): N18.30 - Chronic kidney disease, stage 3 unspecified (3) CAD (coronary artery disease) Associated angina: with stable angina Coronary Disease-Associated Artery/Lesion type: bypass graft [place] vs. transplanted heart: [place] heart Qualified Code(s): I25.708 - Atherosclerosis of coronary artery bypass graft(s), unspecified, with other forms of angina pectoris
[2021-07-16] MEDS: INSULIN ASPART PER UNIT SC SCH ×4 (08:31→20:02)
[2021-07-16] MEDS: FERROUS SULFATE 325 MG TAB PO SCH (08:42)
[2021-07-16] MEDS: SERTRALINE HCL 50 MG TABLET PO SCH (08:42)
[2021-07-16] MEDS: ASCORBIC ACID 500 MG TAB PO SCH (08:43)
[2021-07-16] MEDS: CALCIUM 600MG + VIT D 400 IU TAB PO SCH (08:43)
[2021-07-16] MEDS: GABAPENTIN 100 MG CAP PO SCH ×3 (08:43→20:04)
[2021-07-16] MEDS: carvediloL 12.5 MG TAB PO SCH ×2 (08:43→17:35)
[2021-07-16 14:17] LABS: BUN Creatinine Ratio 32.7 (10-20); Calcium 9.8 mg/dl (8.5-10.1); Creatinine Clr Calc Pharmacy 26.1 ml/min; Est GFR (African American) 53.7 ml/min; Est GFR (Non-African American) 46.3 ml/min
[2021-07-16] MEDS: CALCITRIOL 0.25 MCG CAPSULE PO SCH (17:35)
[2021-07-16] MEDS: LOVASTATIN 20 MG TAB PO SCH (20:05)
[2021-07-16] MEDS: DOCUSATE SODIUM/SENNA 50/8.6MG TAB PO SCH (20:07)
[2021-07-17] MEDS: PANTOprazole 40 MG TAB PO SCH (06:03)
--- NOTE | 2021-07-17 08:14 | Hospitalist Progress Note ---
Date of Service July 17, 2021 Assessment & Plan (1) Closed fracture of greater trochanter of left femur: Plan: Closed fracture of greater trochanter of left femur on xray- Status post mechanical fall CT pelvis without fracture WBC elevated on admit, likely stress from fall/fracture Normalized on repeat, afebrile UA not indicative of infection -- asked to d/c genao as not done previously (clear yellow urine in bag). Monitor UOP following Orthopedics consulted ---> NON OPERATIVE Pain control, antiemetics prn Ice to affected area PT/OT rec SNF CM following and refs sent -- no bed available today, likely until Monday (2) Hypertension: Plan: Hypertension/CAD mod-severe aortic stenosis-monitor volume status Dry 07/13 and lasix placed on hold, and then held valsartan --> continuing to hold and BP 129/58,remains 94% on RA ?if needing both of these at d/c given fall on admission and not volume overloaded with underlying aortic stenosis Continues on carvedilol Will monitor off diuretics/resume if needed. Patient DENIED SYNCOPE prior to fall, just that her legs were weak/gave out Follows with Dr Breaux, known hx but hasn't had echo in ~year Not urgent and no needs acutely but would recommend routine monitoring in follow-up given repeated falls at home HR remains paced in the 60-70s. can d/c tele (3) CAD (coronary artery disease): Plan: See above NO CP/SOB reported and remains on room air (4) Aortic stenosis: Plan: See above Volume status acceptable, no CP/SOB/angina/dizziness. Not continuing diuretics/GILMAR at this time f/u with Cardiology as outpatient for severe for routine echo/surveillance (5) CKD (chronic kidney disease), stage III: Plan: CKD stage III/secondary hyperparathyroidism/vitamin D deficiency- Creatinine 1.00 upon admission, with range 0.97-1.50 Cr 1.07 after holding valsartan/lasix and remains stable x 3 days, no further labs for now Continue calcitriol, ca-carbonate (6) Secondary hyperparathyroidism of renal origin: Plan: See above (7) Vitamin D deficiency: Plan: See above -- last Vit D level 37.9 repeat 44.5 (8) Dyslipidemia: Plan: Continue lovastatin 40 mg every evening (9) Cardiac pacemaker: Plan: 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 (10) Depression: Plan: Continue sertraline (11) Diabetes mellitus: Plan: History of diabetes mellitus, currently on no medications, with glucose of 135 on admission labs Last A1c 6.5 BSgs acceptable and will discontinue fingersticks (12) At high risk for falls: Plan: Led to current issue with left femur fracture Plan: PT/OT rec SNF --> awaiting bed, none until this upcoming week Daughter Amanda point of contact Admission and Anticipated Discharge Date Admission Date: July 12, 2021 Subjective eval this morning. doing well didn't sleep very well reported to PT but she states she slept fair for me. Per nursing some confusion overnight but pleasant and cooperative this morning. Discussed removing genao. She states she has been ambulating ok with the walker with assistance as long as she remembers to hold on. Discussed rehab likely monday. She states she has been eating/drinking no issues and moving her bowels. Review of Systems Review of Systems: All systems reviewed & are unremarkable except as noted in HPI & below Physical Exam Physical Exam: General: frail elderly female sitting up in chair at bedside, NAD HEENT: head normocephalic, atraumatic, mmm, trachea midline without deviation Resp: CTAB, diminished in the bases, no w/c/r, remains ROOM AIR CV: paced on monitor, +harsh systolic murmur, no edema, no calf tenderness, cap refill wnl GI:+BS, soft, non-tender MSK/Neuro: NVI, L hip trochanter decreased tenderness to palpation, leg lengths equal, some pain with abduction/adduction, pulses palpable : genao draining clear yellow urine (asked to discontinue today) Psych: alert, oriented to person, year 2021, month July, not to location at times and thought she was in a house this morning, pleasant and cooperative Skin: cool, dry Results & Data Results & Data ([facility]) Vital Signs (Past 12 Hours) Vital Signs Temp Pulse Pulse Resp BP Pulse Ox 07/17/21 00:00 70 07/16/21 23:05 36.7 C 72 18 143/58 H 94 Laboratory Results 07/17/21 07/17/21 07/16/21 Range/Units 11:24 08:03 19:59 Sodium (136-145) mmol/L Potassium (3.5-5.1) mmol/L Chloride (98-107) mmol/L Carbon Dioxide (21-32) mmol/L Anion Gap (3-11) BUN (6-23) mg/dl Creatinine (0.6-1.2) mg/dl Est Cr Clr Drug Dosing ml/min Est GFR ( Amer) ml/min Est GFR (Non-Af Amer) ml/min BUN/Creatinine Ratio (10-20) Glucose (70-99(Fasting)) mg/dl POC Glucose 210 H 166 H 162 H (70-99) mg/dl Calcium (8.5-10.1) mg/dl 07/16/21 07/16/21 Range/Units 16:20 12:43 Sodium 136 (136-145) mmol/L Potassium 4.0 (3.5-5.1) mmol/L Chloride 101 (98-107) mmol/L Carbon Dioxide 26 (21-32) mmol/L Anion Gap 9 (3-11) BUN 35 H (6-23) mg/dl Creatinine 1.07 (0.6-1.2) mg/dl Est Cr Clr Drug Dosing 26.1 ml/min Est GFR ( Amer) 53.7 ml/min Est GFR (Non-Af Amer) 46.3 ml/min BUN/Creatinine Ratio 32.7 H (10-20) Glucose 219 H (70-99(Fasting)) mg/dl POC Glucose 114 H (70-99) mg/dl Calcium 9.8 (8.5-10.1) mg/dl PG Care Time/CCT Total # of Minutes Spent Total Time Spent with Patient: Total time spent is greater than 50% in coordination of care (as documented) at patient's floor/unit and/or counseling patient: Coding Level of Care Code 34534 Subseq Hosp Care Lvl 1 Diagnoses Closed fracture of greater trochanter of left femur S72.112A Hypertension I10 CAD (coronary artery disease) I25.708 Associated angina: with stable angina Coronary Disease-Associated Artery/Lesion type: bypass graft [place] vs. transplanted heart: [place] heart Aortic stenosis I35.0 CKD (chronic kidney disease), stage III N18.30 Chronic kidney disease stage 3 subtype: unspecified whether 3a or 3b Secondary hyperparathyroidism of renal origin N25.81 Vitamin D deficiency E55.9 Dyslipidemia E78.5 Cardiac pacemaker Z95.0 Depression F32.9 Diabetes mellitus E11.9; Z79.4 Diabetes mellitus complication status: without complication Diabetes mellitus intermediate insulin use: with intermediate use Diabetes mellitus type: type 2 At high risk for falls Z91.81 (1) Diabetes mellitus Diabetes mellitus complication status: without complication Diabetes mellitus intermediate insulin use: with longshore equipment operator use Diabetes mellitus type: type 2 Qualified Code(s): E11.9 - Type 2 diabetes mellitus without complications; Z79.4 - longterm (current) use of insulin (2) CKD (chronic kidney disease), stage III Chronic kidney disease stage 3 subtype: unspecified whether 3a or 3b Qualified Code(s): N18.30 - Chronic kidney disease, stage 3 unspecified (3) CAD (coronary artery disease) Associated angina: with stable angina Coronary Disease-Associated Artery/Lesion type: bypass graft [place] vs. transplanted heart: [place] heart Qualified Code(s): I25.708 - Atherosclerosis of coronary artery bypass graft(s), unspecified, with other forms of angina pectoris
[2021-07-17] MEDS: INSULIN ASPART PER UNIT SC SCH ×4 (09:00→20:14)
[2021-07-17] MEDS: GABAPENTIN 100 MG CAP PO SCH ×3 (09:09→21:28)
[2021-07-17] MEDS: FERROUS SULFATE 325 MG TAB PO SCH (09:09)
[2021-07-17] MEDS: carvediloL 12.5 MG TAB PO SCH ×2 (09:09→17:50)
[2021-07-17] MEDS: ASCORBIC ACID 500 MG TAB PO SCH (09:10)
[2021-07-17] MEDS: CALCIUM 600MG + VIT D 400 IU TAB PO SCH (09:10)
[2021-07-17] MEDS: SERTRALINE HCL 50 MG TABLET PO SCH (09:10)
[2021-07-17] MEDS: DOCUSATE SODIUM/SENNA 50/8.6MG TAB PO SCH (21:27)
[2021-07-17] MEDS: LOVASTATIN 20 MG TAB PO SCH (21:28)
[2021-07-18] MEDS: PANTOprazole 40 MG TAB PO SCH ×2 (05:08→05:11)
[2021-07-18] MEDS: GABAPENTIN 100 MG CAP PO SCH ×3 (08:18→21:48)
[2021-07-18] MEDS: carvediloL 12.5 MG TAB PO SCH ×2 (08:18→17:47)
[2021-07-18] MEDS: SERTRALINE HCL 50 MG TABLET PO SCH (08:18)
[2021-07-18] MEDS: ASCORBIC ACID 500 MG TAB PO SCH (08:19)
[2021-07-18] MEDS: FERROUS SULFATE 325 MG TAB PO SCH (08:19)
[2021-07-18] MEDS: CALCIUM 600MG + VIT D 400 IU TAB PO SCH (08:19)
[2021-07-18] MEDS: INSULIN ASPART PER UNIT SC SCH ×3 (08:20→23:54)
--- NOTE | 2021-07-18 08:36 | Hospitalist Progress Note ---
Date of Service July 18, 2021 Assessment & Plan (1) Closed fracture of greater trochanter of left femur: Plan: Closed fracture of greater trochanter of left femur on xray- Status post mechanical fall CT pelvis without fracture WBC elevated on admit, likely stress from fall/fracture Normalized on repeat, afebrile UA not indicative of infection -- asked to d/c genao as not done previously (clear yellow urine in bag). Monitor UOP following Orthopedics consulted ---> NON OPERATIVE Pain control, antiemetics prn Ice to affected area PT/OT rec SNF CM following and refs sent -- no bed available today, likely until Monday (2) Hypertension: Plan: Hypertension/CAD mod-severe aortic stenosis-monitor volume status Dry 07/13 and lasix placed on hold, and then held valsartan --> continuing to hold and BP 129/58,remains 94% on RA ?if needing both of these at d/c given fall on admission and not volume overloaded with underlying aortic stenosis --> DISCONTINUED BOTH LASIX AND VALSARTAN OFF LIST, WOULD NOT CONTINUE AT DISCHARGE/CAN MONITOR NEEDED LASIX Continues on carvedilol Of note, patient DENIED SYNCOPE prior to fall, just that her legs were weak/gave out Follows with Dr Breaux, known hx but hasn't had echo in ~year Not urgent and no needs acutely but would recommend routine monitoring in follow-up given repeated falls at home HR remains paced in the 60-70s. d/c tele today (3) Aortic stenosis: Plan: See above Volume status acceptable, no CP/SOB/angina/dizziness. Discontinued GILMAR/lasix at this time f/u with Cardiology as outpatient for severe for routine echo/surveillance (consideration for starting Entresto at last office visit, would hold off given falls and remains stable/no signs HF on exam and maintaining ) Asked for standing scale weight this morning as was obtaining bedscale weights, WEIGHT 47.4kg standing 6/5 (104lb) with dry weight at [facility] clinic of 104-106lb and has been off diuretics for several days, discontinued as above (4) CKD (chronic kidney disease), stage III: Plan: CKD stage III/secondary hyperparathyroidism/vitamin D deficiency- Creatinine 1.00 upon admission, with range 0.97-1.50 Cr 1.07 after holding valsartan/lasix and remains stable x 3 days, no further labs for now Continue calcitriol, ca-carbonate (5) Secondary hyperparathyroidism of renal origin: Plan: See above (6) Vitamin D deficiency: Plan: See above -- last Vit D level 37.9 repeat 44.5 (7) Dyslipidemia: Plan: Continue lovastatin 40 mg every evening (8) Cardiac pacemaker: Plan: 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 (9) Depression: Plan: Continue sertraline (10) Diabetes mellitus: Plan: History of diabetes mellitus, currently on no medications, with glucose of 135 on admission labs Last A1c 6.5 BSgs acceptable and will discontinue fingersticks (11) At high risk for falls: Plan: Led to current issue with left femur fracture Plan: PT/OT rec SNF --> awaiting bed, none until this upcoming week Daughter Amanda point of contact Admission and Anticipated Discharge Date Admission Date: July 12, 2021 Subjective eval this morning alert/oriented to person/place, intermittent time but easily reoriented suspect hospital delirium at times, encouraged sleep/wake/blinds pulled during the day working with therapy this morning pain controlled discussed with RN and will plan for genao d/c later today (patient declined day before, but agreeable today) No fever/chills, chest pain, shortness of breath, abdominal pain, nausea or vomiting at this time. Review of Systems Review of Systems: All systems reviewed & are unremarkable except as noted in HPI & below Physical Exam Physical Exam: General: frail elderly female sitting up in chair at bedside, NAD, working with therapy earlier HEENT: head normocephalic, atraumatic, slightly dry mm, trachea midline without deviation Resp: CTAB, diminished in the bases, no w/c/r, remains ROOM AIR CV: paced on monitor, +harsh systolic murmur, no edema, no calf tenderness, cap refill wnl GI:+BS, soft, non-tender MSK/Neuro: NVI, L hip trochanter decreased tenderness to palpation, leg lengths equal, some pain with abduction/adduction (decreased), pulses palpable : genao draining clear yellow urine hanging from walker (asked RN discontinue today) Psych: alert, oriented to person, year 2021, month July, not to location at times and thought she was in a house this morning, pleasant and cooperative Skin: cool, dry Results & Data Results & Data ([facility]) Vital Signs (Past 12 Hours) Vital Signs Temp Pulse Pulse Resp BP Pulse Ox 07/18/21 08:02 36.8 C 67 18 149/68 H 94 07/18/21 00:00 67 Laboratory Results 07/18/21 07/17/21 07/17/21 Range/Units 07:26 20:09 16:58 POC Glucose 159 H 131 H 123 H (70-99) mg/dl 07/17/21 Range/Units 11:24 POC Glucose 210 H (70-99) mg/dl PG Care Time/CCT Total # of Minutes Spent Total Time Spent with Patient: Total time spent is greater than 50% in coordination of care (as documented) at patient's floor/unit and/or counseling patient: Coding Level of Care Code 91453 Subseq Hosp Care Lvl 1 Diagnoses Closed fracture of greater trochanter of left femur S72.112A Hypertension I10 Aortic stenosis I35.0 CKD (chronic kidney disease), stage III N18.30 Chronic kidney disease stage 3 subtype: unspecified whether 3a or 3b Secondary hyperparathyroidism of renal origin N25.81 Vitamin D deficiency E55.9 Dyslipidemia E78.5 Cardiac pacemaker Z95.0 Depression F32.9 Diabetes mellitus E11.9; Z79.4 Diabetes mellitus complication status: without complication Diabetes mellitus half-way insulin use: with termite control servicer use Diabetes mellitus type: type 2 At high risk for falls Z91.81 (1) Diabetes mellitus Diabetes mellitus complication status: without complication Diabetes mellitus termite control servicer insulin use: with half-way use Diabetes mellitus type: type 2 Qualified Code(s): E11.9 - Type 2 diabetes mellitus without complications; Z79.4 - exterminator helper (current) use of insulin (2) CKD (chronic kidney disease), stage III Chronic kidney disease stage 3 subtype: unspecified whether 3a or 3b Qualified Code(s): N18.30 - Chronic kidney disease, stage 3 unspecified
[2021-07-18] MEDS: DOCUSATE SODIUM/SENNA 50/8.6MG TAB PO SCH (21:43)
[2021-07-18] MEDS: LOVASTATIN 20 MG TAB PO SCH (21:48)
[2021-07-19] MEDS: PANTOprazole 40 MG TAB PO SCH (06:11)
[2021-07-19] MEDS: INSULIN ASPART PER UNIT SC SCH ×4 (09:13→21:46)
[2021-07-19] MEDS: GABAPENTIN 100 MG CAP PO SCH ×3 (09:14→21:15)
[2021-07-19] MEDS: carvediloL 12.5 MG TAB PO SCH ×2 (09:14→17:18)
[2021-07-19] MEDS: FERROUS SULFATE 325 MG TAB PO SCH (09:14)
[2021-07-19] MEDS: SERTRALINE HCL 50 MG TABLET PO SCH (09:14)
[2021-07-19] MEDS: CALCIUM 600MG + VIT D 400 IU TAB PO SCH (09:15)
[2021-07-19] MEDS: ASCORBIC ACID 500 MG TAB PO SCH (09:15)
--- NOTE | 2021-07-19 17:06 | Hospitalist Progress Note ---
Date of Service July 19, 2021 Assessment & Plan (1) Closed fracture of greater trochanter of left femur: Plan: Closed fracture of greater trochanter of left femur on xray- Status post mechanical fall CT pelvis without fracture WBC elevated on admit, likely stress from fall/fracture Normalized on repeat, afebrile UA not indicative of infection -- asked to d/c genao as not done previously (clear yellow urine in bag). Monitor UOP following Orthopedics consulted ---> NON OPERATIVE Pain control, antiemetics prn Ice to affected area PT/OT rec SNF CM following and refs sent -- hopefully discharge on Monday. No (2) Hypertension: Plan: Hypertension/CAD mod-severe aortic stenosis-monitor volume status Dry 07/13 and lasix placed on hold, and then held valsartan --> continuing to hold and BP 129/58,remains 94% on RA ?if needing both of these at d/c given fall on admission and not volume overloaded with underlying aortic stenosis --> DISCONTINUED BOTH LASIX AND VALSARTAN OFF LIST, WOULD NOT CONTINUE AT DISCHARGE/CAN MONITOR NEEDED LASIX Continues on carvedilol Of note, patient DENIED SYNCOPE prior to fall, just that her legs were weak/gave out Follows with Dr Breaux, known hx but hasn't had echo in ~year Not urgent and no needs acutely but would recommend routine monitoring in follow-up given repeated falls at home HR remains paced in the 60-70s. d/c tele today (3) Aortic stenosis: Plan: See above Volume status acceptable, no CP/SOB/angina/dizziness. Discontinued GILMAR/lasix at this time f/u with Cardiology as outpatient for severe for routine echo/surveillance (consideration for starting Entresto at last office visit, would hold off given falls and remains stable/no signs HF on exam and maintaining ) Asked for standing scale weight this morning as was obtaining bedscale weights, WEIGHT 47.4kg standing 07/18 (104lb) with dry weight at CHF clinic of 104-106lb and has been off diuretics for several days, discontinued as above (4) CKD (chronic kidney disease), stage III: Plan: CKD stage III/secondary hyperparathyroidism/vitamin D deficiency- Creatinine 1.00 upon admission, with range 0.97-1.50 Cr 1.07 after holding valsartan/lasix and remains stable x 3 days, no further labs for now Continue calcitriol, ca-carbonate (5) Secondary hyperparathyroidism of renal origin: Plan: See above (6) Vitamin D deficiency: Plan: See above -- last Vit D level 37.9 repeat 44.5 (7) Dyslipidemia: Plan: Continue lovastatin 40 mg every evening (8) Cardiac pacemaker: Plan: 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 Review of Systems Review of Systems: All systems reviewed & are unremarkable except as noted in HPI & below Physical Exam Physical Exam: General: frail elderly female sitting up in chair at bedside, NAD, working with therapy earlier HEENT: head normocephalic, atraumatic, slightly dry mm, trachea midline without deviation Resp: CTAB, diminished in the bases, no w/c/r, remains ROOM AIR CV: paced on monitor, +harsh systolic murmur, no edema, no calf tenderness, cap refill wnl GI:+BS, soft, non-tender MSK/Neuro: NVI, L hip trochanter decreased tenderness to palpation, leg lengths equal, some pain with abduction/adduction (decreased), pulses palpable : genao draining clear yellow urine hanging from walker (asked RN discontinue today) Psych: alert, oriented to person, year 2021, month July, not to location at times and thought she was in a house this morning, pleasant and cooperative Skin: cool, dry Results & Data Results & Data ([facility]) Vital Signs (Past 12 Hours) Vital Signs Temp Pulse Pulse Resp BP Pulse Ox 07/19/21 15:57 61 07/19/21 14:59 36.4 C L 61 18 158/69 H 98 07/19/21 11:00 36.3 C L 62 18 147/65 H 96 07/19/21 07:42 36.6 C 65 18 176/66 H 94 07/19/21 07:23 64 PG Care Time/CCT Total # of Minutes Spent Total Time Spent with Patient: Total time spent is greater than 50% in coordination of care (as documented) at patient's floor/unit and/or counseling patient: Coding Level of Care Code 70192 Subseq Hosp Care Lvl 2 Diagnoses Closed fracture of greater trochanter of left femur S72.112A Hypertension I10 Aortic stenosis I35.0 CKD (chronic kidney disease), stage III N18.30 Chronic kidney disease stage 3 subtype: unspecified whether 3a or 3b Secondary hyperparathyroidism of renal origin N25.81 Vitamin D deficiency E55.9 Dyslipidemia E78.5 Cardiac pacemaker Z95.0 Depression F32.9 Diabetes mellitus E11.9; Z79.4 Diabetes mellitus complication status: without complication Diabetes mellitus jail insulin use: with terminal block assembler use Diabetes mellitus type: type 2 At high risk for falls Z91.81 (1) Diabetes mellitus Diabetes mellitus complication status: without complication Diabetes mellitus jail insulin use: with terminal block assembler use Diabetes mellitus type: type 2 Qualified Code(s): E11.9 - Type 2 diabetes mellitus without complications; Z79.4 - parts counterman (current) use of insulin (2) CKD (chronic kidney disease), stage III Chronic kidney disease stage 3 subtype: unspecified whether 3a or 3b Qualified Code(s): N18.30 - Chronic kidney disease, stage 3 unspecified
[2021-07-19] MEDS: CALCITRIOL 0.25 MCG CAPSULE PO SCH (17:18)
[2021-07-19] MEDS: DOCUSATE SODIUM/SENNA 50/8.6MG TAB PO SCH (21:14)
[2021-07-19] MEDS: LOVASTATIN 20 MG TAB PO SCH (21:15)
[2021-07-20] MEDS: PANTOprazole 40 MG TAB PO SCH (05:51)
[2021-07-20 07:34] LABS: Hematocrit (blood only) 36.2 % (37-47); Hemoglobin 11.6 g/dL (12.0-16.0); Mean Corpuscular Hemoglobin 28.2 pg (25-34); Mean Corpuscular Volume 87.9 fL (80-100); Mean Platelet Volume 11.3 fL (7.4-10.4); Platelet Count 205 K/uL (130-400); RDW Coefficient of Variation 14.4 % (11.5-14.5); RDW Standard Deviation 46.1 fL (36.4-46.3); Red Blood Count 4.12 M/uL (4.2-5.4); White Blood Count 6.35 K/uL (4.8-10.8)
[2021-07-20 07:53] LABS: BUN Creatinine Ratio 29.9 (10-20); Calcium 9.7 mg/dl (8.5-10.1); Creatinine Clr Calc Pharmacy 28.8 ml/min; Est GFR (African American) 60.4 ml/min; Est GFR (Non-African American) 52.1 ml/min
[2021-07-20] MEDS: INSULIN ASPART PER UNIT SC SCH ×2 (08:44→12:17)
[2021-07-20] MEDS: ASCORBIC ACID 500 MG TAB PO SCH (08:44)
[2021-07-20] MEDS: FERROUS SULFATE 325 MG TAB PO SCH (08:45)
[2021-07-20] MEDS: carvediloL 12.5 MG TAB PO SCH (08:45)
[2021-07-20] MEDS: GABAPENTIN 100 MG CAP PO SCH (08:45)
[2021-07-20] MEDS: SERTRALINE HCL 50 MG TABLET PO SCH (08:45)
[2021-07-20] MEDS: CALCIUM 600MG + VIT D 400 IU TAB PO SCH (08:45)
--- NOTE | 2021-07-24 23:47 | Discharge Summary ---
Date of Service July 20, 2021 Admission HPI Per Admitting Provider The patient is a 86-year-old female with a past medical history including hypertension, headaches, generalized weakness, subarachnoid hemorrhage, subdural hematoma, aortic stenosis, PAM, COPD, diabetes mellitus, ambulatory dysfunction, neuropathy of both upper extremities, depression, secondary hyperparathyroidism, chronic combined systolic and diastolic CHF, paroxysmal atrial fibrillation, cardiomyopathy, cardiac pacemaker for complete AV block, dyslipidemia and diabetic peripheral neuropathy. She presents as noted above, stating that her legs just gave out on her. Principal Diagnosis closed fracture of greater trochanter of left femur Discharge Exam General: frail elderly female sitting up in chair at bedside, NAD, working with therapy earlier HEENT: head normocephalic, atraumatic, slightly dry mm, trachea midline without deviation Resp: CTAB, diminished in the bases, no w/c/r, remains ROOM AIR CV: paced on monitor, +harsh systolic murmur, no edema, no calf tenderness, cap refill wnl GI:+BS, soft, non-tender MSK/Neuro: NVI, L hip trochanter decreased tenderness to palpation, leg lengths equal, some pain with abduction/adduction (decreased), pulses palpable : genao draining clear yellow urine hanging from walker (asked RN discontinue today) Psych: alert, oriented to person, year 2021, month July, not to location at times and thought she was in a house this morning, pleasant and cooperative Skin: cool, dry Discharge Data Allergies Allergy/AdvReac Type Severity Reaction Status Date / Time tamsulosin Allergy Severe SHORTNESS Verified 07/12/21 01:39 OF BREATH butalbital Allergy Intermediate SHORTNESS Verified 07/12/21 01:39 OF BREATH nitrofurantoin Allergy Unknown Unknown Verified 07/12/21 01:39 [From Macrobid] Cephalosporins AdvReac Severe TONGUE Verified 07/12/21 01:39 SWELLING WITH KEFLEX- tolerating keflex 03/16/20 levetiracetam AdvReac Intermediate RASH Verified 07/12/21 01:39 morphine AdvReac Intermediate hallucinati Verified 07/12/21 01:39 ons Sulfa (Sulfonamide AdvReac Unknown "SULFA Verified 07/12/21 01:39 Antibiotics) DRUGS" - UNKNOWN Consultations 07/11/21 23:00 ED Decision to Admit Stat 07/12/21 12:22 Consult Orthopedic Surgery Routine Ordered Studies 07/12/21 12:51 CT hip LT wo con Routine 07/14/21 15:08 CT head/brain wo con Stat Hospital Course (1) Closed fracture of greater trochanter of left femur: Closed fracture of greater trochanter of left femur on xray- Status post mechanical fall CT pelvis without fracture WBC elevated on admit, likely stress from fall/fracture Normalized on repeat, afebrile UA not indicative of infection -- asked to d/c genao as not done previously (clear yellow urine in bag). Monitor UOP following Orthopedics consulted ---> NON OPERATIVE Pain control, antiemetics prn Ice to affected area PT/OT rec SNF CM following and refs sent --discharge today (2) Hypertension: Hypertension/CAD mod-severe aortic stenosis-monitor volume status Dry 07/13 and lasix placed on hold, and then held valsartan --> continuing to hold and BP 129/58,remains 94% on RA ?if needing both of these at d/c given fall on admission and not volume overloaded with underlying aortic stenosis --> DISCONTINUED BOTH LASIX AND VALSARTAN OFF LIST, WOULD NOT CONTINUE AT DISCHARGE/CAN MONITOR NEEDED LASIX Continues on carvedilol Of note, patient DENIED SYNCOPE prior to fall, just that her legs were weak/gave out Follows with Dr Breaux, known hx but hasn't had echo in ~year Not urgent and no needs acutely but would recommend routine monitoring in follow-up given repeated falls at home HR remains paced in the 60-70s. d/c tele today (3) Aortic stenosis: See above Volume status acceptable, no CP/SOB/angina/dizziness. Discontinued GILMAR/lasix at this time f/u with Cardiology as outpatient for severe for routine echo/surveillance (consideration for starting Entresto at last office visit, would hold off given falls and remains stable/no signs HF on exam and maintaining ) Asked for standing scale weight this morning as was obtaining bedscale weights, WEIGHT 47.4kg standing 07/18 (104lb) with dry weight at CHF clinic of 104-106lb and has been off diuretics for several days, discontinued as above (4) CKD (chronic kidney disease), stage III: CKD stage III/secondary hyperparathyroidism/vitamin D deficiency- Creatinine 1.00 upon admission, with range 0.97-1.50 Cr 1.07 after holding valsartan/lasix and remains stable x 3 days, no further labs for now Continue calcitriol, ca-carbonate (5) Secondary hyperparathyroidism of renal origin: See above (6) Vitamin D deficiency: See above -- last Vit D level 37.9 repeat 44.5 (7) Dyslipidemia: Continue lovastatin 40 mg every evening (8) Cardiac pacemaker: 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 (9) Depression: Continue sertraline (10) Diabetes mellitus: History of diabetes mellitus, currently on no medications, with glucose of 135 on admission labs Last A1c 6.5 BSgs acceptable and will discontinue fingersticks (11) At high risk for falls: Led to current issue with left femur fracture PT/OT rec SNF --> awaiting bed, none until this upcoming week Daughter Amanda point of contact Total Time Total Time Spent Total Time Spent (In Minutes): 35 Discharge Plan Discharge Items Patient Disposition: Transfer Group Home Fac Reason For Visit: LEFT HIP FRACTURE Discharge Diagnosis: left hip fracture Activity: Resume your previous activity Activity Comment: weightbear as tolerated Non-emergency contact: Primary Care Provider Call non-emergency contact if: you have any medication questions Follow-up/Referrals: Shanti Valles MD [Primary Care Provider] - Diet: Heart Healthy Addtl Attending Provider Instructions: Weightbearing as tolerated. Pain control as needed. Ice to the left lateral hip. Patient can follow-up with Dr Nava at [facility] in 4-9 days for follow-up care and radiographs of her left hip. Pending Studies at Discharge: No Stand-Alone Forms: My [facility] Skilled Items Patient informed of condition?: Yes DNR: Yes Discharge Level of Care: Skilled Communicable Disease: No Discharge Prognosis: Stable Lines: None Urinary Catheter: No Medications and DC Order Prescriptions: New acetaminophen [Tylenol Extra Strength] 500 mg Tablet 650 mg PO Q6H Qty: 30 RF: 0 oxycodone 5 mg tablet 5 mg PO Q8H PRN (Reason: moderate/severe pain) Qty: 14 RF: 0 Continued calcium carbonate-vitamin D3 [Os-Emile 500 + D3] 500 mg(1,250mg) -200 unit tablet 1 tab PO QAM Qty: 0 RF: 0 ipratropium-albuterol 0.5 mg-3 mg(2.5 mg base)/3 mL solution for nebulization 3 ml INHALATION Q4H PRN (Reason: Wheezing) Qty: 180 RF: 8 (DME) OneTouch Verio test strips Strip See Rx Instructions .Route Qty: 100 RF: 1 (DME) Easy Touch Twist Lancets 32 gauge misc See Rx Instructions .Route Qty: 100 RF: 1 calcitriol 0.25 mcg capsule 0.25 mcg PO 3XWK Qty: 36 RF: 5 ferrous sulfate 325 mg (65 mg iron) tablet 325 mg PO QAM Qty: 90 RF: 3 gabapentin 100 mg capsule 100 mg PO TID Qty: 270 RF: 3 lovastatin 40 mg tablet 40 mg PO PM Qty: 90 RF: 3 pantoprazole 40 mg tablet,delayed release (DR/EC) 40 mg PO DAILY@0600 Qty: 90 RF: 3 carvedilol 12.5 mg tablet 12.5 mg PO BID Qty: 10 RF: 3 sertraline 50 mg tablet 50 mg PO QAM Qty: 90 RF: 3 (DME) hospital bed See Rx Instructions .Route .MEDSUPPLY Qty: 1 RF: 0 methenamine hippurate 1 gram tablet 1 g PO BID RF: 0 ascorbic acid (vitamin C) 500 mg tablet 500 mg PO QAM RF: 0 Premarin 0.625 mg/gram cream 1 applic vaginal UD RF: 0 Systane Gel 0.4-0.3 % Drops,Gel 1 drp ophthalmic (eye) Q8H PRN (Reason: Dry Eyes) RF: 0 Changed furosemide 20 mg tablet 20 mg PO QAM PRN (Reason: above 2 pounds of dry weight: 106 lbs) Qty: 90 RF: 3 Discontinued valsartan 40 mg tablet 20 mg PO QAM Qty: 45 RF: 3 Hold Instructions: BP low Discharge Orders: Discharge Order (Routine); Ordered 07/20/21 Ordered By: Brian Samuel Admission Data Admit Date/Time: 07/12/21 01:59 Attending Provider: Brian Samuel Admit Provider: [place] Primary Care Provider: Shanti Valles Other Providers: [place] ; Adalberto Montiel ; Norman Bond at [place] ; Lizella,[facility], [place] ; [facility] Other Interventions: Discharge Summary Assessment (RN) Last Done: 07/20/21 10:48 Coding Level of Care Code D/C DAY MANAGEMENT >30 MINS Diagnoses Closed fracture of greater trochanter of left femur S72.112A Hypertension I10 Aortic stenosis I35.0 CKD (chronic kidney disease), stage III N18.30 Chronic kidney disease stage 3 subtype: unspecified whether 3a or 3b Secondary hyperparathyroidism of renal origin N25.81 Vitamin D deficiency E55.9 Dyslipidemia E78.5 Cardiac pacemaker Z95.0 Depression F32.9 Diabetes mellitus E11.9; Z79.4 Diabetes mellitus type: type 2 Diabetes mellitus roasterman insulin use: with roasterman use Diabetes mellitus complication status: without complication At high risk for falls Z91.81
== END 2021-07-20 12:57 | DRG 536 ==
LOC: ED 21:03 → EDINP 07-12 01:59 → SUATTDRO 07-12 01:59 → 2W 07-12 02:53

== ENCOUNTER 2022-02-12 22:16 | Inpatient (IN) ==
--- NOTE | 2022-02-12 22:46 | Emergency Department Note ---
History of Present Illness General Chief complaint: Shortness of Breath/Dyspnea Time Seen by Provider: 02/12/22 22:28 History of Present Illness This is an 86-year-old female that presents to the emergency department via EMS accompanied by daughter Laverne with complaints of "chest pain, shortness of breath". Per review of the chart, patient has a history of hypercholesterolemia, hypertension, ischemic cardiomyopathy, paroxysmal atrial fibrillation, complete heart block with dual-chamber pacemaker, history of mitral valve repair/annuloplasty, mitral valve disease, CAD status post CABG x2, CHF. The daughter at bedside notes around 5:30 PM she spoke to her mother and she was doing well and had no complaints. Then sometime between the hours of 7pm and 730pm this evening she notes that the patient called her son Simón for help if she had chest pain or shortness of breath. EMS summoned then to the patient's residence. She does live alone. She was still complaining of shortness of breath and chest pain that went from the left chest into her back and into her arms bilaterally. On transport here patient notes resolution of symptoms. In route she received albuterol, DuoNeb and 4 baby aspirin per report. Patient at the present time denies any chest pain or shortness of breath. Patient notes that she feels fine at this time. Of note, patient is found to be utilizing 2 L of O2 via nasal cannula. Per RN at bedside patient was found to be 88-89% O2 on room air therefore started on O2. Daughter at bedside notes that this is new for her. Home Medications Medication Instructions Recorded Confirmed Type calcium carbonate 500 mg-vitamin 1 tab PO QAM #0 tabs 04/09/20 02/12/22 History D3 5 mcg (200 unit) tablet (Os-Emile 500 + D3) methenamine hippurate 1 gram tablet 1 g PO BID 08/25/20 02/12/22 History ascorbic acid (vitamin C) 500 mg 500 mg PO QAM 11/19/20 02/12/22 History tablet ipratropium 0.5 mg-albuterol 3 mg 3 ml inhalation Q4H PRN Wheezing 01/28/21 02/12/22 Rx (2.5 mg base)/3 mL nebulization #180 mL soln peg 400-propylene glycol 0.4 %-0.3 1 drp ophthalmic (eye) Q8H PRN Dry 04/01/21 02/12/22 History % eye gel drops (Systane Gel) Eyes lancets 32 gauge (Easy Touch Twist #100 ea 04/06/21 02/12/22 Rx Lancets) conjugated estrogens 0.625 mg/gram 1 applic vaginal UD 04/19/21 02/12/22 History vaginal cream (Premarin) ferrous sulfate 325 mg (65 mg 325 mg PO QAM #90 tabs 05/14/21 02/12/22 Rx iron) tablet gabapentin 100 mg capsule 100 mg PO TID #270 caps 05/14/21 02/12/22 Rx lovastatin 40 mg tablet 40 mg PO PM #90 tabs 05/14/21 02/12/22 Rx pantoprazole 40 mg tablet,delayed 40 mg PO DAILY@0600 #90 tabs 05/14/21 02/12/22 Rx release sertraline 50 mg tablet 50 mg PO QAM #90 tabs 05/20/21 02/12/22 Rx acetaminophen 500 mg tablet 650 mg PO Q6H #30 tabs 07/20/21 02/12/22 Rx (Tylenol Extra Strength) furosemide 20 mg tablet 20 mg PO QAM PRN above 2 pounds of 07/20/21 02/12/22 Rx dry weight: 106 lbs #90 tabs amino acids-protein hydrolysate 15 30 ml PO DAILY #3,548 mL 08/25/21 02/12/22 Rx gram-60 kcal/30 mL oral liquid (ProSource No Carb) carvedilol 12.5 mg tablet 12.5 mg PO BID #180 tabs 11/01/21 02/12/22 Rx calcitriol 0.25 mcg capsule 0.25 mcg PO 3XWK #36 caps 11/10/21 02/12/22 Rx blood sugar diagnostic (OneTouch #100 ea 11/16/21 01/03/22 Rx Verio test strips) valsartan 40 mg tablet 20 mg PO QAM #45 tabs 01/10/22 02/12/22 Rx nitrofurantoin 100 mg PO BID #14 caps 02/08/22 02/12/22 Rx monohydrate/macrocrystals 100 mg capsule (Macrobid) Allergies Allergy/AdvReac Type Severity Reaction Status Date / Time tamsulosin Allergy Severe SHORTNESS Verified 02/12/22 22:56 OF BREATH butalbital Allergy Intermediate SHORTNESS Verified 02/12/22 22:56 OF BREATH nitrofurantoin Allergy Unknown Unknown Verified 02/12/22 22:56 [From Macrobid] Cephalosporins AdvReac Severe TONGUE Verified 02/12/22 22:56 SWELLING WITH KEFLEX- tolerating keflex 03/16/20 levetiracetam AdvReac Intermediate RASH Verified 02/12/22 22:56 morphine AdvReac Intermediate hallucinati Verified 02/12/22 22:56 ons Sulfa (Sulfonamide AdvReac Unknown "SULFA Verified 02/12/22 22:56 Antibiotics) DRUGS" - UNKNOWN Past Med/Surg History Medical History Abscess of hand, right Acute UTI (urinary tract infection) Allergy to multiple antibiotics Anemia Cardiac pacemaker for complete hear block Cellulitis of right hand Cerebellar infarct Chronic renal disease, stage III Depression Diabetes mellitus Extremity atherosclerosis with intermittent claudication Fracture of pubic ramus Gait instability History of chest pain Lower abdominal pain Secondary hyperparathyroidism of renal origin Solitary pulmonary nodule Transient ischemic attack (TIA) Vitamin D deficiency Surgical History History of nasal surgery Hx of carpal tunnel repair Family History Other Family history non-contributory Social History Smoking Status: Never smoker Second Hand Exposure: No; Hx Alcohol Use: No Hx Substance Use: No Preferred Language: Citizen Of [place] Communication Ability: Effective Visual Impairment: No Limitations 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 Beliefs That Will Affect Care: None marital status: / Current Living Situation: Alone How many Children do You have: 2 Feels Safe at Home: Yes Childhood Exposure to Second-Hand Smoke: Yes caffeine: Yes Dental Care, Regularly: No Physical Activity Frequency: 1-2 Times per Week Seatbelt Use: always Sunscreen Use: No Assistive Devices: Oxygen - at Night Review of Systems A total of 10 systems reviewed and were otherwise negative Physical Exam Vital Signs Vital Signs - 24 hr 02/12/22 22:07 02/12/22 22:07 02/12/22 22:07 Temperature 36.5 C Temperature Source Oral Pulse Rate 68 Pulse Rate from SpO2 Sensor Respiratory Rate 24 Respiratory Effort / Characteristics Non-Labored Spontaneous Respiratory Depth Normal Blood Pressure 179/68 H Blood Pressure Mean 105 Pulse Oximetry 96 88 L 96 Oxygen Delivery Method Nasal Cannula Room Air Nasal Cannula Nasal Cannula Oxygen Flow Rate 2 0 Sepsis Recent Fever Within 48 Hours No Sepsis New/Unexplained Change in Mental Status No Sepsis Action Taken by Nursing No Action Required Oxygen Flow Rate - Titration 2 Pulse Oximetry Post Tiitration 96 02/12/22 22:37 02/12/22 22:31 02/12/22 23:10 Temperature Temperature Source Pulse Rate 65 65 Pulse Rate from SpO2 Sensor 65 65 Respiratory Rate 17 21 Respiratory Effort / Characteristics Respiratory Depth Blood Pressure 179/68 H Blood Pressure Mean 105 Pulse Oximetry 96 95 93 Oxygen Delivery Method Nasal Cannula Nasal Cannula Oxygen Flow Rate 2 2 Sepsis Recent Fever Within 48 Hours Sepsis New/Unexplained Change in Mental Status Sepsis Action Taken by Nursing Oxygen Flow Rate - Titration Pulse Oximetry Post Tiitration 02/13/22 01:10 Temperature Temperature Source Pulse Rate 65 Pulse Rate from SpO2 Sensor 65 Respiratory Rate 23 Respiratory Effort / Characteristics Respiratory Depth Blood Pressure Blood Pressure Mean Pulse Oximetry 94 Oxygen Delivery Method Nasal Cannula Oxygen Flow Rate 2 Sepsis Recent Fever Within 48 Hours Sepsis New/Unexplained Change in Mental Status Sepsis Action Taken by Nursing Oxygen Flow Rate - Titration Pulse Oximetry Post Tiitration VITAL SIGNS - Vital signs and nursing notes were reviewed. Stable and afebrile. GENERAL -86-year-old female appearing her stated age who is in no acute distress. Communicates well with provider and answers questions appropriately. SKIN - Without rashes. No meningeal or petechial rash. HEAD - NC/AT. EYES - PERRL with EOMI bilaterally. Sclera anicteric. EARS - No deformities of external structures noted on gross examination bilaterally. NOSE - Midline and without cyanosis. No epistaxis or purulent drainage noted. MOUTH/OROPHARYNX - Without perioral cyanosis. NECK - Neck with FROM. No nuchal rigidity. LUNGS - Chest wall symmetric without accessory muscle use, intercostals retractions, or central cyanosis. Normal vesicular breath sounds CTA B/L. No wheezes, rales, or rhonchi appreciated. CARDIAC -regular rate and rhythm. ABDOMEN - Abdominal contour normal without pulsations or visible masses. BS normoactive all four quadrants. No tenderness, palpable masses, hepatosplenomegaly, or ascites noted. EXTREMITIES - No clubbing or peripheral cyanosis. +5/5 strength noted in UE/LE bilaterally. NEUROLOGIC - Cranial nerves II through XII grossly intact. PSYCH - A&Ox3 and cooperates fully with examiner. Pt is very pleasant and interacts well with examiner. Course Administered Medications Acetaminophen (Acetaminophen 325 Mg Tab) 650 mg PO Q6H [facility] Stop: 03/15/22 05:59 Last Admin: 02/13/22 05:33 Dose: 650 mg Documented By: MARY LOU Albuterol (Albut/Ipratrop 3mg/0.5mg Neb 3 Ml Vial) 3 ml NEB Q4R TAMMIE; Protocol Stop: 03/15/22 02:59 Last Admin: 02/13/22 07:33 Dose: 3 ml Documented By: Admin: 02/13/22 03:46 Dose: Not Given Documented By: APPLE Pantoprazole Sodium (Pantoprazole 40 Mg Tab) 40 mg PO DAILY@0600 [facility] Stop: 03/15/22 05:59 Last Admin: 02/13/22 05:33 Dose: 40 mg Documented By: MARY LOU Discontinued Medications Ioversol (Optiray 320 500ml) 104 ml IV ONCE ONE Stop: 02/13/22 01:24 Last Admin: 02/13/22 01:23 Dose: 104 ml Documented By: ERON Medical Decision Making Laboratory Data Result diagrams: 02/12/22 22:52 02/12/22 22:52 Lab Results 02/12/22 02/12/22 02/12/22 Range/Units 22:52 22:52 22:52 WBC 10.88 H (4.8-10.8) K/ul RBC 4.49 (3.93-5.22) M/uL Hgb 13.2 (12.0-16.0) g/dl Hct 40.5 (34.1-44.9) % MCV 90.2 (80.0-100.0) fL MCH 29.4 (25.0-34.0) pg MCHC 32.6 (32.0-36.0) g/dL RDW Std Deviation 48.6 H (36.4-46.3) fL RDW Coeff of Carlos 14.6 H (11.5-14.5) % Plt Count 127 L (130-400) K/uL MPV 10.7 (9.4-12.3) fL Immature Gran % (Auto) 0.4 % Neut % (Auto) 87.2 % Lymph % (Auto) 4.9 % [place] % (Auto) 4.6 % Eos % (Auto) 2.8 % Baso % (Auto) 0.1 % Neut # (Auto) 9.50 H (1.4-6.5) K/uL Lymph # (Auto) 0.53 L (1.2-3.4) K/uL [place] # (Auto) 0.50 (0.24-0.82) K/uL Eos # (Auto) 0.30 (0-0.50) K/uL Baso # (Auto) 0.01 (0-0.2) K/uL Immature Gran # (Auto) 0.04 H (0.00-0.02) K/uL RBC Morphology Unremarkable PT 11.1 (9.0-12.0) Seconds INR 1.0 (0.9-1.1) APTT 27.8 (21.0-31.0) Seconds PTT Ratio 1.0 Sodium 140 (136-145) mmol/L Potassium 3.6 (3.5-5.1) mmol/L Chloride 102 (98-107) mmol/L Carbon Dioxide 28 (21-32) mmol/L Anion Gap 10 (3-11) BUN 33 H (6-23) mg/dl Creatinine 1.19 (0.6-1.2) mg/dl Est Cr Clr Drug Dosing 23.5 ml/min Est GFR ( Amer) 47.2 ml/min Est GFR (Non-Af Amer) 40.7 ml/min BUN/Creatinine Ratio 27.7 H (10-20) Glucose 204 H (70-99(Fasting)) mg/dl Calcium 9.5 (8.5-10.1) mg/dl Magnesium 1.8 (1.7-2.4) mg/dl Total Bilirubin 0.5 (0.2-1.0) mg/dl AST 9 L (13-39) U/L ALT 7 (7-52) U/L Alkaline Phosphatase 61 (34-104) U/L Troponin I High Sens 24.8 H (0-14) pg/ml Total Protein 7.5 (6.0-8.3) gm/dl Albumin 4.2 (3.4-5.0) gm/dl Globulin 3.3 (2.5-4.0) gm/dl Albumin/Globulin Ratio 1.3 (0.9-2) SARS-CoV-2 (PCR) (Negative) Influenza Type A (PCR) (Neg) Influenza Type B (PCR) (Neg) RSV (RT-PCR) (Neg) 02/12/22 Range/Units 22:54 WBC (4.8-10.8) K/ul RBC (3.93-5.22) M/uL Hgb (12.0-16.0) g/dl Hct (34.1-44.9) % MCV (80.0-100.0) fL MCH (25.0-34.0) pg MCHC (32.0-36.0) g/dL RDW Std Deviation (36.4-46.3) fL RDW Coeff of Carlos (11.5-14.5) % Plt Count (130-400) K/uL MPV (9.4-12.3) fL Immature Gran % (Auto) % Neut % (Auto) % Lymph % (Auto) % [place] % (Auto) % Eos % (Auto) % Baso % (Auto) % Neut # (Auto) (1.4-6.5) K/uL Lymph # (Auto) (1.2-3.4) K/uL [place] # (Auto) (0.24-0.82) K/uL Eos # (Auto) (0-0.50) K/uL Baso # (Auto) (0-0.2) K/uL Immature Gran # (Auto) (0.00-0.02) K/uL RBC Morphology PT (9.0-12.0) Seconds INR (0.9-1.1) APTT (21.0-31.0) Seconds PTT Ratio Sodium (136-145) mmol/L Potassium (3.5-5.1) mmol/L Chloride (98-107) mmol/L Carbon Dioxide (21-32) mmol/L Anion Gap (3-11) BUN (6-23) mg/dl Creatinine (0.6-1.2) mg/dl Est Cr Clr Drug Dosing ml/min Est GFR ( Amer) ml/min Est GFR (Non-Af Amer) ml/min BUN/Creatinine Ratio (10-20) Glucose (70-99(Fasting)) mg/dl Calcium (8.5-10.1) mg/dl Magnesium (1.7-2.4) mg/dl Total Bilirubin (0.2-1.0) mg/dl AST (13-39) U/L ALT (7-52) U/L Alkaline Phosphatase (34-104) U/L Troponin I High Sens (0-14) pg/ml Total Protein (6.0-8.3) gm/dl Albumin (3.4-5.0) gm/dl Globulin (2.5-4.0) gm/dl Albumin/Globulin Ratio (0.9-2) SARS-CoV-2 (PCR) NEGATIVE (Negative) Influenza Type A (PCR) Negative (Neg) Influenza Type B (PCR) Negative (Neg) RSV (RT-PCR) Negative (Neg) Imaging Data Radiologist's Impression: CTA CHEST: There is reasonable opacification of the pulmonary arterial tree, no pulmonary trill filling defect is seen. No dense parenchymal consolidation, pleural eff usion, or edema thorax. There is a partially spiculated 8 mm nodule in the left lower lobe (image 60 series 3). The patient is status post sternotomy. There is a prosthetic mitral valve. There is extensive coronary vascular calcification. There is extensive aortic calcification. There is a left chest implanted cardiac device. Radiologist: Ilya Spivey MD Study ready at 01:07 and initial results transmitted at 01:10 MDM Narrative Patient was seen and evaluated as above in room C06. Review was performed of nursing notes and vital signs. I did review pertinent previous visits and patient history. After obtaining a thorough history and physical examination the above work up was performed. Patient presents to us today via EMS for evaluation of chest pain or shortness of breath that occurred prior to arrival. She now notes resolution of symptoms. Patient clinically well-appearing and nontoxic. Options of care discussed with the patient and daughter at bedside. IV access was established. Labs were drawn. EKG reveals a ventricular paced rhythm at a rate of 65 bpm. QTc 503. QRS 154. The patient is symptom-free at this time. No complaints. Labs reveal mild leukocytosis 10.88. No anemia. No emergent metabolic disturbance. Troponin mildly elevated at 24.8. COVID testing neg ative. Chest x-ray similar to previous. CTA was obtained noting her symptoms and was without evidence of PE or dissection. Noting the patient's symptoms prehospital that led to arrival here today I do find it reasonable to proceed with inpatient management for further evaluation and management of the symptoms. Patient without pain at this time and clinically well-appearing. Case discussed with the hospitalist service. Please refer to further documentation regarding her stay. I did have our staff interrogate the patient's [employer] pacemaker. This was performed. I did review the device status, pacemaker summary, clinical status as well as therapy summary and observations. I then received a phone call shortly after 11 PM from the [employer] printing supplies sales representative. He indicated that the pacemaker was functioning okay but as of February 07 of this year had gone into a different mode where now it was pacing only the ventricles and not the atrium secondary to battery saving mode. It will need to be replaced soon but does have a few months left of service life. Case was discussed with the attending physician. An order was placed for continuous cardiac monitoring. The monitor shows a rate of 65 bpm. GCS: 15 In the evaluation and treatment of this patient the following differential diagnoses were entertained: AR, PE, pericarditis, costochondritis, dissection, rib fracture, among others. Impression & Plan Chest pain, Cardiac pacemaker Discharge Plan Visit Data Chief Complaint: Shortness of Breath/Dyspnea ED Provider: Cayden Dunaway ED Midlevel Provider: Koko Aldrich Discharge Problem: Chest pain, Cardiac pacemaker Patient Disposition: Admitted As Inpatient Condition: Good Discharge Instructions Interventions: ED Discharge Assessment Last Done: 02/13/22 02:35
[2022-02-12 23:42] LABS: Partial Thromboplastin Time 27.8 Seconds (21.0-31.0); Prothrombin Time 11.1 Seconds (9.0-12.0)
[2022-02-12 23:49] LABS: Basophils # (auto) 0.01 K/uL (0-0.2); Basophils % (auto) 0.1 %; Eosinophils % (auto) 2.8 %; Hematocrit (blood only) 40.5 % (34.1-44.9); Hemoglobin 13.2 g/dl (12.0-16.0); Immature Granulocytes # (auto) 0.04 K/uL (0.00-0.02); Immature Granulocytes % (auto) 0.4 %; Lymphocytes # (auto) 0.53 K/uL (1.2-3.4); Lymphocytes % (auto) 4.9 %; Mean Corpuscular Hemoglobin 29.4 pg (25.0-34.0); Mean Corpuscular Hgb Conc 32.6 g/dL (32.0-36.0); Mean Corpuscular Volume 90.2 fL (80.0-100.0); Mean Platelet Volume 10.7 fL (9.4-12.3); Monocytes % (auto) 4.6 %; Neutrophils % (auto) 87.2 %; Platelet Count 127 K/uL (130-400); RBC Morphology Unremarkable; RDW Coefficient of Variation 14.6 % (11.5-14.5); RDW Standard Deviation 48.6 fL (36.4-46.3); Red Blood Count 4.49 M/uL (3.93-5.22); White Blood Count 10.88 K/ul (4.8-10.8)
[2022-02-12 23:50] LABS: Albumin Globulin Ratio 1.3 (0.9-2); Albumin Level 4.2 gm/dl (3.4-5.0); BUN Creatinine Ratio 27.7 (10-20); Bilirubin,Total 0.5 mg/dl (0.2-1.0); Calcium 9.5 mg/dl (8.5-10.1); Creatinine Clr Calc Pharmacy 23.5 ml/min; Est GFR (African American) 47.2 ml/min; Est GFR (Non-African American) 40.7 ml/min; Globulin 3.3 gm/dl (2.5-4.0); Magnesium 1.8 mg/dl (1.7-2.4); Potassium 3.6 mmol/L (3.5-5.1); Total Protein 7.5 gm/dl (6.0-8.3)
[2022-02-12 23:55] LABS: Troponin I High Sensitivity 24.8 pg/ml (0-14)
[2022-02-13 00:06] LABS: Influenza A virus by PCR Negative (Neg); Influenza B virus by PCR Negative (Neg); RSV by PCR Negative (Neg); SARS CoV2 RNA(COVID-19) Ceph NEGATIVE (Negative)
[2022-02-13] MEDS ORDERED: OPTIRAY 320 500ml IV ONE ×2 (01:23→20:14)
--- NOTE | 2022-02-13 02:33 | History & Physical Report ---
Date of Service February 13, 2022 Assessment & Plan (1) Abdominal pain: Plan: Etiology unclear. Presently with no abdominal discomfort. Normal bowel sounds, no distention. She does have some diffuse tenderness but no evidence of peritonitis. Possibly secondary to UTI - UA is pending -Check KUB -Monitor symptoms -Continue Macrobid 100mg po BID (2) Hypoxia: Plan: Patient with documented hypoxia in the ER. She does use supplemental O2 at home. Diminished breath sounds bilaterally -DuoNebs q4 hours while awake -Albuterol as needed -Supplemental O2 as needed -Check ambulatory saturation in AM (3) Hypertension: Plan: Blood pressure elevated, 179/68 presently. No complaints of chest pain, SOB presently -Continue Valsartan 20mg po daily -Continue Carvedilol (4) COPD (chronic obstructive pulmonary disease): Plan: Patient with SOB and wheeze -Duonebs and Albuterol (5) CKD (chronic kidney disease), stage III: Plan: Near baseline -Monitor renal function (6) Diabetes mellitus: Plan: Diet controlled Monitor blood sugars (7) Depression: Plan: Chronic -Continue Sertraline (8) Secondary hyperparathyroidism of renal origin: Plan: Chronic -Continue Calcitriol 3x weekly (9) Dyslipidemia: Plan: Chronic -Continue Lovastatin 40mg po daily History of Present Illness Chief Complaint: abdominal pain Primary Care Provider: DAVID Palmer Kassy Vasquez is an 86yo female with history of DM, COPD, CKD and prior cerebellar infarct presenting with abdominal pain and shortness of breath. Patient had acute onset of upper abdominal pain two days ago. She reports the pain as severe, 10/10, pinching in nature. Located predominantly in bandlike distribution of her upper abdomen but some involvement of suprapubic region as well. She reports the discomfort lasted most of the night two nights ago but was resolved in the morning. This evening prior to arrival she had similar discomfort, severe, 10/10. She reports feeling warm during the episode then having a cold sweat. She reports eating well at home. She is having normal bowel movements - occasionally loose - no blood or mucus, passing flatus without difficulty. She reports some abdominal distention during her episodes of pain. No association with meals. She has had some nausea, no vomiting. No additional complaints at this time. In the ER she was found to be hypoxic at 88% on room air requiring supplemental O2. She does have O2 at home which she uses occasionally - 2 liters "every now and then". She has a dry cough as well. Allergies Allergy/AdvReac Type Severity Reaction Status Date / Time tamsulosin Allergy Severe SHORTNESS Verified 02/12/22 22:56 OF BREATH butalbital Allergy Intermediate SHORTNESS Verified 02/12/22 22:56 OF BREATH nitrofurantoin Allergy Unknown Unknown Verified 02/12/22 22:56 [From Macrobid] Cephalosporins AdvReac Severe TONGUE Verified 02/12/22 22:56 SWELLING WITH KEFLEX- tolerating keflex 03/16/20 levetiracetam AdvReac Intermediate RASH Verified 02/12/22 22:56 morphine AdvReac Intermediate hallucinati Verified 02/12/22 22:56 ons Sulfa (Sulfonamide AdvReac Unknown "SULFA Verified 02/12/22 22:56 Antibiotics) DRUGS" - UNKNOWN Home Medications Medication Instructions Recorded Confirmed Type calcium carbonate 500 mg-vitamin 1 tab PO QAM #0 tabs 04/09/20 02/12/22 History D3 5 mcg (200 unit) tablet (Os-Emile 500 + D3) methenamine hippurate 1 gram tablet 1 g PO BID 08/25/20 02/12/22 History ascorbic acid (vitamin C) 500 mg 500 mg PO QAM 11/19/20 02/12/22 History tablet ipratropium 0.5 mg-albuterol 3 mg 3 ml inhalation Q4H PRN Wheezing 01/28/21 02/12/22 Rx (2.5 mg base)/3 mL nebulization #180 mL soln peg 400-propylene glycol 0.4 %-0.3 1 drp ophthalmic (eye) Q8H PRN Dry 04/01/21 02/12/22 History % eye gel drops (Systane Gel) Eyes lancets 32 gauge (Easy Touch Twist #100 ea 04/06/21 02/12/22 Rx Lancets) conjugated estrogens 0.625 mg/gram 1 applic vaginal UD 04/19/21 02/12/22 History vaginal cream (Premarin) ferrous sulfate 325 mg (65 mg 325 mg PO QAM #90 tabs 05/14/21 02/12/22 Rx iron) tablet gabapentin 100 mg capsule 100 mg PO TID #270 caps 05/14/21 02/12/22 Rx lovastatin 40 mg tablet 40 mg PO PM #90 tabs 05/14/21 02/12/22 Rx pantoprazole 40 mg tablet,delayed 40 mg PO DAILY@0600 #90 tabs 05/14/21 02/12/22 Rx release sertraline 50 mg tablet 50 mg PO QAM #90 tabs 05/20/21 02/12/22 Rx acetaminophen 500 mg tablet 650 mg PO Q6H #30 tabs 07/20/21 02/12/22 Rx (Tylenol Extra Strength) furosemide 20 mg tablet 20 mg PO QAM PRN above 2 pounds of 07/20/21 02/12/22 Rx dry weight: 106 lbs #90 tabs amino acids-protein hydrolysate 15 30 ml PO DAILY #3,548 mL 08/25/21 02/12/22 Rx gram-60 kcal/30 mL oral liquid (ProSource No Carb) carvedilol 12.5 mg tablet 12.5 mg PO BID #180 tabs 11/01/21 02/12/22 Rx calcitriol 0.25 mcg capsule 0.25 mcg PO 3XWK #36 caps 11/10/21 02/12/22 Rx blood sugar diagnostic (OneTouch #100 ea 11/16/21 01/03/22 Rx Verio test strips) valsartan 40 mg tablet 20 mg PO QAM #45 tabs 01/10/22 02/12/22 Rx nitrofurantoin 100 mg PO BID #14 caps 02/08/22 02/12/22 Rx monohydrate/macrocrystals 100 mg capsule (Macrobid) Past Med/Surg History Medical History Abscess of hand, right Acute UTI (urinary tract infection) Allergy to multiple antibiotics Anemia Cardiac pacemaker for complete hear block Cellulitis of right hand Cerebellar infarct Chronic renal disease, stage III Depression Diabetes mellitus Extremity atherosclerosis with intermittent claudication Fracture of pubic ramus Gait instability History of chest pain Lower abdominal pain Secondary hyperparathyroidism of renal origin Solitary pulmonary nodule Transient ischemic attack (TIA) Vitamin D deficiency Surgical History History of nasal surgery Hx of carpal tunnel repair Family History Other Family history non-contributory Social History Smoking Status: Former smoker Second Hand Exposure: No; Hx Alcohol Use: No Hx Substance Use: No Preferred Language: Greek Communication Ability: Effective Visual Impairment: No Limitations Supersonic Engineer Required: No Beliefs That Will Affect Care: None marital status: / Current Living Situation: Family How many Children do You have: 2 Feels Safe at Home: Yes Childhood Exposure to Second-Hand Smoke: Yes caffeine: Yes Dental Care, Regularly: No Physical Activity Frequency: 1-2 Times per Week Seatbelt Use: always Sunscreen Use: No Assistive Devices: Cane, Oxygen - at Night and Walker Review of Systems Review of Systems: All systems reviewed & are unremarkable except as noted in HPI & below Physical Exam Physical Exam: General: frail, elderly female patient resting comfortably, NAD, non-toxic in appearance, AA&O x 4 Skin: warm, dry, intact, no rashes or lesions HEENT: NC/AT, PERRL, EOMI, anicteric sclera, conjunctiva without injection, external ear normal to inspection and nontender, nares patent, moist mucus membranes, dentition intact, no oropharyngeal lesions, neck supple, trachea midline, no LAD, no thyromegaly, no JVD Heart: +S1/S2, regular, 4/6 CHASTITY across precordium with radiation to bilateral carotids and into axilla Lungs: diminished breath sounds bilaterally with some end-expiratory wheezing Abd: +BS, soft, non-distended, diffuse tenderness without rebound/guarding/peritonitis Ext: warm, 2+ pulses in UE/LE bilaterally, no clubbing/cyanosis or edema Neuro: nonfocal, patient AA&O x 4, speech intact, no facial droop, moving all extremities on command with equal strength 5/5 Results & Data Results & Data ([facility]) Vital Signs (Past 12 Hours) Vital Signs Temp Pulse Resp BP Pulse Ox O2 Del Method O2 Flow Rate 02/13/22 01:10 65 23 94 Nasal Cannula 2 02/12/22 23:10 65 21 93 Nasal Cannula 2 02/12/22 22:31 65 17 179/68 H 95 02/12/22 22:37 96 Nasal Cannula 2 02/12/22 22:07 96 Nasal Cannula 02/12/22 22:07 88 L Room Air, Nasal Cannula 0 02/12/22 22:07 36.5 C 68 24 179/68 H 96 Nasal Cannula 2 Laboratory Results Laboratory Results WBC 10.88 K/ul (4.8-10.8) H 02/12/22 22:52 RBC 4.49 M/uL (3.93-5.22) 02/12/22 22:52 Hgb 13.2 g/dl (12.0-16.0) 02/12/22 22:52 Hct 40.5 % (34.1-44.9) 02/12/22 22:52 MCV 90.2 fL (80.0-100.0) 02/12/22 22:52 MCH 29.4 pg (25.0-34.0) 02/12/22 22:52 MCHC 32.6 g/dL (32.0-36.0) 02/12/22 22:52 RDW Std Deviation 48.6 fL (36.4-46.3) H 02/12/22 22:52 RDW Coeff of Carlso 14.6 % (11.5-14.5) H 02/12/22 22:52 Plt Count 127 K/uL (130-400) L 02/12/22 22:52 MPV 10.7 fL (9.4-12.3) 02/12/22 22:52 Immature Gran % (Auto) 0.4 % 02/12/22 22:52 Neut % (Auto) 87.2 % 02/12/22 22:52 Lymph % (Auto) 4.9 % 02/12/22 22:52 Blair % (Auto) 4.6 % 02/12/22 22:52 Eos % (Auto) 2.8 % 02/12/22 22:52 Baso % (Auto) 0.1 % 02/12/22 22:52 Neut # (Auto) 9.50 K/uL (1.4-6.5) H 02/12/22 22:52 Lymph # (Auto) 0.53 K/uL (1.2-3.4) L 02/12/22 22:52 Blair # (Auto) 0.50 K/uL (0.24-0.82) 02/12/22 22:52 Eos # (Auto) 0.30 K/uL (0-0.50) 02/12/22 22:52 Baso # (Auto) 0.01 K/uL (0-0.2) 02/12/22 22:52 Immature Gran # (Auto) 0.04 K/uL (0.00-0.02) H 02/12/22 22:52 RBC Morphology Unremarkable 02/12/22 22:52 PT 11.1 Seconds (9.0-12.0) 02/12/22 22:52 INR 1.0 (0.9-1.1) 02/12/22 22:52 APTT 27.8 Seconds (21.0-31.0) 02/12/22 22:52 PTT Ratio 1.0 02/12/22 22:52 Sodium 140 mmol/L (136-145) 02/12/22 22:52 Potassium 3.6 mmol/L (3.5-5.1) 02/12/22 22:52 Chloride 102 mmol/L (98-107) 02/12/22 22:52 Carbon Dioxide 28 mmol/L (21-32) 02/12/22 22:52 Anion Gap 10 (3-11) 02/12/22 22:52 BUN 33 mg/dl (6-23) H 02/12/22 22:52 Creatinine 1.19 mg/dl (0.6-1.2) 02/12/22 22:52 Est Cr Clr Drug Dosing 23.5 ml/min 02/12/22 22:52 Est GFR ( Amer) 47.2 ml/min 02/12/22 22:52 Est GFR (Non-Af Amer) 40.7 ml/min 02/12/22 22:52 BUN/Creatinine Ratio 27.7 (10-20) H 02/12/22 22:52 Glucose 204 mg/dl (70-99(Fasting)) H 02/12/22 22:52 Calcium 9.5 mg/dl (8.5-10.1) 02/12/22 22:52 Magnesium 1.8 mg/dl (1.7-2.4) 02/12/22 22:52 Total Bilirubin 0.5 mg/dl (0.2-1.0) 02/12/22 22:52 AST 9 U/L (13-39) L 02/12/22 22:52 ALT 7 U/L (7-52) 02/12/22 22:52 Alkaline Phosphatase 61 U/L (34-104) 02/12/22 22:52 Troponin I High Sens 24.8 pg/ml (0-14) H 02/12/22 22:52 Total Protein 7.5 gm/dl (6.0-8.3) 02/12/22 22:52 Albumin 4.2 gm/dl (3.4-5.0) 02/12/22 22:52 Globulin 3.3 gm/dl (2.5-4.0) 02/12/22 22:52 Albumin/Globulin Ratio 1.3 (0.9-2) 02/12/22 22:52 SARS-CoV-2 (PCR) NEGATIVE (Negative) 02/12/22 22:54 Influenza Type A (PCR) Negative (Neg) 02/12/22 22:54 Influenza Type B (PCR) Negative (Neg) 02/12/22 22:54 RSV (RT-PCR) Negative (Neg) 02/12/22 22:54 ECG Additional Comments: By my interpretation - EKG is V-paced at 65bpm, no acute ischemic changes Code Status & VTE Plan VTE Prophylaxis Plan VTE Prophylaxis will be ordered: Yes PG Care Time/CCT Total # of Minutes Spent Total Time Spent with Patient: Total time spent is greater than 50% in coordination of care (as documented) at patient's floor/unit and/or counseling patient: Coding Level of Care Code 75206 Initial Inpt Care Lvl 2 Diagnoses Abdominal pain R10.9 Hypoxia R09.02 Hypertension I10 COPD (chronic obstructive pulmonary disease) J44.9 CKD (chronic kidney disease), stage III N18.30 Chronic kidney disease stage 3 subtype: unspecified whether 3a or 3b Diabetes mellitus E11.9; Z79.4 Diabetes mellitus type: type 2 Diabetes mellitus intermediate designer insulin use: with longterm use Diabetes mellitus complication status: without complication Depression F32.9 Secondary hyperparathyroidism of renal origin N25.81 Dyslipidemia E78.5 (1) CKD (chronic kidney disease), stage III Chronic kidney disease stage 3 subtype: unspecified whether 3a or 3b Qualified Code(s): N18.30 - Chronic kidney disease, stage 3 unspecified (2) Diabetes mellitus Diabetes mellitus type: type 2 Diabetes mellitus intermediate designer insulin use: with longterm use Diabetes mellitus complication status: without complication Qualified Code(s): E11.9 - Type 2 diabetes mellitus without complications; 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
[2022-02-13] MEDS ORDERED: ALBUTEROL 0.083% NEBU SOLN 3 ML VIAL NEB PRN (02:57)
[2022-02-13] MEDS: ALBUT/IPRATROP 3MG/0.5MG NEB 3 ML VIAL NEB SCH ×6 (03:46→23:22)
[2022-02-13] MEDS: ACETAMINOPHEN 325 MG TAB PO SCH ×3 (05:33→17:49)
[2022-02-13] MEDS: PANTOprazole 40 MG TAB PO SCH (05:33)
--- NOTE | 2022-02-13 07:39 | XRay Report ---
KUB CLINICAL HISTORY: Abdominal pain. COMPARISON STUDY: CT of the abdomen and pelvis June 12, 2020. FINDINGS: Pacer leads, prosthetic mitral valve, cholecystectomy clips, right hip arthroplasty and can nulated screws within the proximal left femur are incidentally noted. There is contrast within the co llecting systems and bladder from recent contrast-enhanced CT. The bowel gas pattern is normal. Amoun t of stool is within normal limits. IMPRESSION: No evidence for a bowel obstruction. ACT 112: Negative or not required by law. Electronically signed by: Sonido Issa M.D. 02/13/2022 7:38 AM
--- NOTE | 2022-02-13 08:26 | XRay Report ---
XR chest 1V portable HISTORY: Atypical chest pain, dyspnea COMPARISON: Chest 07/12/2021. FINDINGS: There are poststernotomy changes and a cardiac valve prosthesis. The heart is normal in siz e. Left-sided dual-chamber pacemaker. Prior cholecystectomy. No pleural effusions. No pneumothorax. M ild diffuse interstitial thickening persists. This is likely chronic. There is an 8 mm nodule within the left midlung zone. Mild emphysema. IMPRESSION: 1. Mild diffuse interstitial thickening which is likely chronic. 2. No new focal lung consolidations to suggest a pneumonia. 3. An 8 mm nodule within the left midlung zone. This is better appreciated on the recent chest CTA ACT 112: Negative or not required by law. Electronically signed by: Delta Barrientos M.D. 02/13/2022 8:25 AM
[2022-02-13] MEDS: cefTRIAXone SODIUM 1,000 MG in DEXTROSE 5% AD-VAN 50 ML IV SCH (08:44)
[2022-02-13] MEDS: GABAPENTIN 100 MG CAP PO SCH ×3 (08:50→20:44)
[2022-02-13] MEDS: carvediloL 12.5 MG TAB PO SCH ×2 (08:52→20:44)
[2022-02-13] MEDS: VALSARTAN 80 MG TAB PO SCH (08:52)
[2022-02-13] MEDS: SERTRALINE HCL 50 MG TABLET PO SCH (08:52)
[2022-02-13] MEDS: ENOXAPARIN INJ 30 MG/0.3 ML SYR SQ SCH (08:53)
[2022-02-13] MEDS ORDERED: MACROBID 100MG HOME PACK PO SCH (09:00)
--- NOTE | 2022-02-13 09:18 | CT Scan Report ---
CHEST CTA for PULMONARY ARTERIES CT DOSE: 227.82 mGy.cm HISTORY: dyspnea, chest pain radiating into back TECHNIQUE: Multiaxial CT images of the chest were performed following the intravenous administration of contrast to evaluate the pulmonary arteries. Maximal intensity projection images were also obtaine d. A dose lowering technique was utilized adhering to the principles of ALARA. COMPARISON STUDY: Chest CT 06/15/2019. FINDINGS: The visualized liver, spleen, and right adrenal gland are unremarkable. Multinodular thyroi d gland. Left-sided pacemaker and poststernotomy changes. No mediastinal or hilar lymphadenopathy. Th e heart is mildly enlarged. No pleural or pericardial effusions. Normal caliber esophagus. Calcified plaque within the normal caliber thoracic aorta. No evidence for an aortic dissection. The main pulmo nary artery is distended up to 3.2 cm consistent with arterial hypertension. No filling defects withi n the pulmonary arteries to suggest a pulmonary embolus. There are old, healed left-sided rib fractur es. No pneumothorax. Partial opacification of a few the bilateral lower lobe bronchi. There is mild b ronchial wall thickening. Mild emphysema. Mild interlobular septal thickening. A few scattered linear scarlike density seen within the mid to lower lung zones. Calcified granuloma within the base of the left lower lobe. An 8 mm left lower lobe pulmonary nodule on image 148. A 4 mm nodule within the rig ht upper lobe on image 197. No focal lung consolidations to suggest a pneumonia. IMPRESSION: 1. No evidence for a pulmonary embolus. 2. An 8 mm nodule within the left lower lobe. This is concerning for a primary bronchogenic malignanc y. Follow-up PET/CT or [address] follow-up recommended for further evaluation. 3. Mild emphysema. 4. Mild interlobular septal thickening. This could represent mild congestive change. 5. Pulmonary arterial hypertension. 6. Mild bronchial wall thickening with a few partially opacified distal lower lobe bronchi. This may represent a bronchitis. ACT 112: Positive. There are findings on this exam that require communication between the performing entity and the patient following Patient Test Result Information Act ([place] Act 112) guidelines. Electronically signed by: Delta Barrientos M.D. 02/13/2022 9:17 AM
--- NOTE | 2022-02-13 10:01 | Electrocardiogram Report ---
Test Reason : Blood Pressure : / mmHG Vent. Rate : 065 BPM Atrial Rate : 394 BPM P-R Int : 000 ms QRS Dur : 154 ms QT Int : 484 ms P-R-T Axes : 000 -76 097 degrees QTc Int : 503 ms Poor data quality, interpretation may be adversely affected Ventricular-paced rhythm Abnormal ECG When compared with ECG of 12-JUL-2021 07:18, Vent. rate has decreased BY 18 BPM Confirmed by Adalberto aErly ([id number]) on 02/13/2022 10:01:10 AM Referred By: Crystal Mcguire Confirmed By:Serge Early
[2022-02-13 10:10] LABS: Appearance Urine Cloudy (Clear); Bacteria Urine Automated 1+ (Negative); Bilirubin Urine Negative (Negative); Blood Urine Negative (Negative); Color Urine Yellow; Epithelial Cell Urine Auto >30 /lpf (0-5); Glucose Urine UA Negative (Negative); Ketones Urine Negative (Negative); Leukocyte Esterase Urine 1+ (Negative); Nitrite Urine Negative (Negative); Protein Urine 2+ (Negative); RBC Urine Automated 0-4 /hpf (0-4); Specific Gravity Urine > 1.045 (1.000-1.030); Urobilinogen Urine Negative (Negative); WBC Urine Automated >30 /hpf (0-5); pH Urine 5.5 (4.5-7.5)
--- NOTE | 2022-02-13 16:42 | Communication Note ---
Date of Service: February 13, 2022 Spoke to her daughter stating that she was told by her plane captain Dr. Breaux, that pacemaker battery is dying, however the cardiology note on 01/10 stats" it is approaching JOCELYNE with a battery voltage of 2.82 V (JOCELYNE is 2.81V), it has appropriate sensing and pacing characteristics. Pacing from the right atrium 43% of the time, pacing from the right ventricle 100% of the time., EKG showed ventricular paced rhythm no evidence of malfunctioning of the pacemaker" Her daughter states she had chest pain however she did not confirm, the last interrogation of the pacemaker on 01/10 showed 2 hours of atrial fibrillation in total with longest episode of 62 minutes The patient has had off-and-on abdominal pain for the last few months with nausea/possible vomiting, currently she has UTI, continue Rocephin, proceed with CT of abdomen with contrast CT of chest showed a spiculated left lobe lesion concerning for malignancy
[2022-02-13] MEDS: LOVASTATIN 20 MG TAB PO SCH (20:44)
[2022-02-14] MEDS: ACETAMINOPHEN 325 MG TAB PO SCH ×5 (00:42→23:23)
[2022-02-14] MEDS: ALBUT/IPRATROP 3MG/0.5MG NEB 3 ML VIAL NEB SCH ×7 (03:21→23:32)
[2022-02-14] MEDS: PANTOprazole 40 MG TAB PO SCH (05:40)
[2022-02-14 06:40] LABS: Hematocrit (blood only) 37.3 % (34.1-44.9); Hemoglobin 12.1 g/dl (12.0-16.0); Mean Corpuscular Hemoglobin 29.2 pg (25.0-34.0); Mean Corpuscular Hgb Conc 32.4 g/dL (32.0-36.0); Mean Corpuscular Volume 90.1 fL (80.0-100.0); Mean Platelet Volume 10.2 fL (9.4-12.3); Platelet Count 133 K/uL (130-400); RDW Coefficient of Variation 14.6 % (11.5-14.5); RDW Standard Deviation 48.3 fL (36.4-46.3); Red Blood Count 4.14 M/uL (3.93-5.22); White Blood Count 7.49 K/ul (4.8-10.8)
[2022-02-14 06:58] LABS: Creatinine Clr Calc Pharmacy 25.2 ml/min; Est GFR (African American) 51.3 ml/min; Est GFR (Non-African American) 44.3 ml/min
[2022-02-14] MEDS: cefTRIAXone SODIUM 1,000 MG in DEXTROSE 5% AD-VAN 50 ML IV SCH (08:02)
[2022-02-14] MEDS: ENOXAPARIN INJ 30 MG/0.3 ML SYR SQ SCH (08:44)
[2022-02-14] MEDS: GABAPENTIN 100 MG CAP PO SCH ×3 (08:45→19:59)
[2022-02-14] MEDS: carvediloL 12.5 MG TAB PO SCH ×2 (08:46→19:58)
[2022-02-14] MEDS: VALSARTAN 80 MG TAB PO SCH (08:46)
[2022-02-14] MEDS: SERTRALINE HCL 50 MG TABLET PO SCH (08:46)
--- NOTE | 2022-02-14 09:14 | CT Scan Report ---
CT abdomen pelvis veno w con HISTORY: 86 years-old Female Abdominal pain for 3 months subacute generalized abdominal pain COMPARISON: CTA of the chest of same day, CT abdomen and pelvis 06/12/2020, CT left hip 07/12/2021 TECHNIQUE: CT abdomen and pelvis was obtained following the intravenous ministration of 110 mL Optira y 320. A dose lowering technique was used consistent with the principals of SISSY. FINDINGS: Cardiomegaly with prior median sternotomy. Partially imaged pacer leads with prosthetic mitral valve. Trace pleural effusions with subsegmental bibasilar atelectasis. No pneumatosis or pneumoperitoneum identified. Unremarkable spleen, and adrenal glands. Atrophic pancreas with unchanged mild pancreatic ductal dilation. Cholecystectomy with likely postsurgical mild biliary ductal dilation, also stable from prior. Unchanged mild marginal nodularity of the liver. There is patency of the hepatic and port al veins. Cortical scarring with parenchymal thinning of the left greater than right kidney is again noted angelique g with renal vascular calcifications. No hydronephrosis. There are a few subcentimeter hypodensities of the kidneys suggestive of probable cysts. 1.1 cm cyst of the inferior pole left kidney. Contrast w ithin the renal collecting systems and ureters from the CTA of the chest. Unremarkable urinary bladde r. Hysterectomy. Atherosclerosis of the aorta without aneurysm. No lymphadenopathy. Metallic density structure within the right inguinal tissues again noted. No bowel obstruction. There is mild diffuse wall thickening of the stomach with increased enhancement . Colonic diverticulosis without acute diverticulitis. Mild colonic fecal retention. Unremarkable sof t tissues. Demineralized appearance of the bones with degenerative changes of the spine, pelvis and l eft hip. Right hip total joint arthroplasty. Intact cannulated screws within the left femoral neck. S clerosis of the left femoral head may represent avascular necrosis. Chronic L1 and L3 compression def ormities. IMPRESSION: 1. No bowel obstruction or bowel wall thickening. 2. Mild nonspecific wall thickening of the mid to distal stomach may be secondary to partial distenti on versus a mild nonspecific gastritis. 3. Colonic diverticulosis. 4. Trace pleural effusions. 5. Additional findings as above. ACT 112: Negative or not required by law. The above report was generated using voice recognition software. It may contain grammatical, syntax o r spelling errors. Electronically signed by: Joseph Alcantar M.D. 02/14/2022 9:12 AM
--- NOTE | 2022-02-14 11:27 | Cardiology Consultation ---
Date of Consultation February 14, 2022 Assessment & Plan (1) Cardiomyopathy: (2) Cardiac pacemaker: (3) CAD (coronary artery disease): (4) Hypoxia: (5) Aortic stenosis: (6) Complete atrioventricular block: Plan She appeared to have an element of hypoxia at the time of admission. Possibly related to underlying COPD. Possibly related to pulmonary vascular congestion. I do not believe she has been administered any diuretic. Lung examination was not normal but she does not appear to be overtly hypervolemic. Good saturations overall. No symptoms of dyspnea currently. 2. Cardiomyopathy: Longstanding cardiomyopathy of intermediate severity. On valsartan, carvedilol and furosemide. Again, she does not appear to be significantly volume overloaded. Symptoms of dyspnea have resolved. If she is ambulatory and her oxygen requirement improves, no specific cardiac treatment is required. Otherwise, I would have a low threshold for dose of intravenous diuretic. 3. Valvular heart disease: Severe aortic stenosis, mild mitral stenosis and [id number] mitral regurgitation. In the past she has voiced an objection to additional interventional procedures. Do not believe her current admission is likely related to aortic stenosis. 4. Complete heart block: Her pacemaker is currently at the elective replacement interval. The device was reprogrammed today to DDDR mode. We will plan for an outpatient elective generator change. This will facilitate treatment of any current infection prior to a procedure. 5. Coronary disease: Mild chest pain is described in her record, she did not verbalize any specific complaints of chest pain to me today. She will continue aggressive secondary prevention with lovastatin. Presumably not on anticoagulation or anti-platelet therapy due to a history of intracranial hemorrhage. 6. Paroxysmal atrial fibrillation: By report. Not currently on anticoagulation due to history of intracranial hemorrhage. History of Present Illness Reason for Consultation: Dyspnea, abdominal pain, pacemaker at [facility] Requesting Physician: Luis Attending Physician: Latrell Olvera DO History of Present Illness The patient is an 78-year-old woman with a history of an ischemic cardiomyopathy, coronary artery disease status post coronary artery bypass grafting, complete heart block status post dual-chamber permanent pacemaker, mitral valve repair, paroxysmal atrial fib and congestive heart failure who came to the hospital for symptoms of transient dyspnea. It seems that the patient had some period of shortness of breath and abdominal discomfort. She was brought to the emergency room for evaluation but her symptoms appear to have resolved by the time of evaluation. The patient does not have much recollection of the events which occurred yesterday. She did not endorse symptoms of abdominal or chest pain. She states that breathing is actually quite good and currently she is feeling at her baseline. She is able to perform ADLs at home without assistance. She walks with a walker. She did not report any new limitations such as worsening dyspnea, dizziness, palpitations or exertional chest pain. She has not noticed any lower extremity edema. Allergies Allergy/AdvReac Type Severity Reaction Status Date / Time tamsulosin Allergy Severe SHORTNESS Verified 02/12/22 22:56 OF BREATH butalbital Allergy Intermediate SHORTNESS Verified 02/12/22 22:56 OF BREATH nitrofurantoin Allergy Unknown Unknown Verified 02/12/22 22:56 [From Macrobid] Cephalosporins AdvReac Severe TONGUE Verified 02/12/22 22:56 SWELLING WITH KEFLEX- tolerating keflex 03/16/20 levetiracetam AdvReac Intermediate RASH Verified 02/12/22 22:56 morphine AdvReac Intermediate hallucinati Verified 02/12/22 22:56 ons Sulfa (Sulfonamide AdvReac Unknown "SULFA Verified 02/12/22 22:56 Antibiotics) DRUGS" - UNKNOWN Home Medications Medication Instructions Recorded Confirmed Type calcium carbonate 500 mg-vitamin 1 tab PO QAM #0 tabs 04/09/20 02/12/22 History D3 5 mcg (200 unit) tablet (Os-Emile 500 + D3) methenamine hippurate 1 gram tablet 1 g PO BID 08/25/20 02/12/22 History ascorbic acid (vitamin C) 500 mg 500 mg PO QAM 11/19/20 02/12/22 History tablet ipratropium 0.5 mg-albuterol 3 mg 3 ml inhalation Q4H PRN Wheezing 01/28/21 02/12/22 Rx (2.5 mg base)/3 mL nebulization #180 mL soln peg 400-propylene glycol 0.4 %-0.3 1 drp ophthalmic (eye) Q8H PRN Dry 04/01/21 02/12/22 History % eye gel drops (Systane Gel) Eyes lancets 32 gauge (Easy Touch Twist #100 ea 04/06/21 02/12/22 Rx Lancets) conjugated estrogens 0.625 mg/gram 1 applic vaginal UD 04/19/21 02/12/22 History vaginal cream (Premarin) ferrous sulfate 325 mg (65 mg 325 mg PO QAM #90 tabs 05/14/21 02/12/22 Rx iron) tablet gabapentin 100 mg capsule 100 mg PO TID #270 caps 05/14/21 02/12/22 Rx lovastatin 40 mg tablet 40 mg PO PM #90 tabs 05/14/21 02/12/22 Rx pantoprazole 40 mg tablet,delayed 40 mg PO DAILY@0600 #90 tabs 05/14/21 02/12/22 Rx release sertraline 50 mg tablet 50 mg PO QAM #90 tabs 05/20/21 02/12/22 Rx acetaminophen 500 mg tablet 650 mg PO Q6H #30 tabs 07/20/21 02/12/22 Rx (Tylenol Extra Strength) furosemide 20 mg tablet 20 mg PO QAM PRN above 2 pounds of 07/20/21 02/12/22 Rx dry weight: 106 lbs #90 tabs amino acids-protein hydrolysate 15 30 ml PO DAILY #3,548 mL 08/25/21 02/12/22 Rx gram-60 kcal/30 mL oral liquid (ProSource No Carb) carvedilol 12.5 mg tablet 12.5 mg PO BID #180 tabs 11/01/21 02/12/22 Rx calcitriol 0.25 mcg capsule 0.25 mcg PO 3XWK #36 caps 11/10/21 02/12/22 Rx blood sugar diagnostic (OneTouch #100 ea 11/16/21 01/03/22 Rx Verio test strips) valsartan 40 mg tablet 20 mg PO QAM #45 tabs 01/10/22 02/12/22 Rx nitrofurantoin 100 mg PO BID #14 caps 02/08/22 02/12/22 Rx monohydrate/macrocrystals 100 mg capsule (Macrobid) Patient History Medical History Abscess of hand, right Acute UTI (urinary tract infection) Allergy to multiple antibiotics Anemia Cardiac pacemaker for complete hear block Cellulitis of right hand Cerebellar infarct Chronic renal disease, stage III Depression Diabetes mellitus Extremity atherosclerosis with intermittent claudication Fracture of pubic ramus Gait instability History of chest pain Lower abdominal pain Secondary hyperparathyroidism of renal origin Solitary pulmonary nodule Transient ischemic attack (TIA) Vitamin D deficiency Surgical History History of nasal surgery Hx of carpal tunnel repair Family History Other Family history non-contributory Social History Smoking Status: Never smoker Second Hand Exposure: No; Hx Alcohol Use: No Hx Substance Use: No Preferred Language: Somali Communication Ability: Effective Visual Impairment: No Limitations Marketing Content Manager Required: No Beliefs That Will Affect Care: None marital status: / Current Living Situation: Alone How many Children do You have: 2 Feels Safe at Home: Yes Childhood Exposure to Second-Hand Smoke: Yes caffeine: Yes Dental Care, Regularly: No Physical Activity Frequency: 1-2 Times per Week Seatbelt Use: always Sunscreen Use: No Assistive Devices: Oxygen - at Night Review of Systems Review of Systems: Per HPI. Occasional fluttering. Currently resolved Physical Exam Physical Exam: She is alert and oriented x3. Mood affect appear normal. She answered all questions appropriately. HEENT: Sclerae are anicteric. Pupils are equal and reactive to light and accommodation. Extraocular movements were intact. Neuro: Cranial nerves intact Chest: Well-healed device implant site in left upper pectoral area Lungs: Lungs are clear to auscultation bilaterally. There are no rales wheezes or rhonchi. She has normal respiratory effort without use of accessory muscles. There is normal pulmonary excursion. Cardiac: The rhythm was regular. S1 and S2 were normal. Crescendo systolic murmur. The PMI was not markedly displaced on palpation. Abdomen: The abdomen was soft and nontender. Extremities: Patient has bilateral radial pulses that are equal in intensity. There is no evidence cyanosis or clubbing. There was no evidence of significant peripheral edema bilaterally. Skin: There are no rashes noted on examination today. Results & Data ([facility]) Vital Signs (Past 12 Hours) Vital Signs Temp Pulse Resp BP Pulse Ox O2 Del Method O2 Flow Rate 02/14/22 07:35 65 18 98 Nasal Cannula 2 02/14/22 07:07 Nasal Cannula 2 02/14/22 07:03 36.5 C 65 18 163/75 H 97 Nasal Cannula 2 02/14/22 03:21 Nasal Cannula 02/13/22 23:22 Nasal Cannula Laboratory Results Abnormal Lab Results 02/14/22 02/14/22 06:10 06:10 WBC 7.49 RBC 4.14 Hgb 12.1 Hct 37.3 MCV 90.1 MCH 29.2 MCHC 32.4 RDW Std Deviation 48.3 H RDW Coeff of Carlos 14.6 H Plt Count 133 MPV 10.2 Creatinine 1.11 Est Cr Clr Drug Dosing 25.2 Est GFR ( Amer) 51.3 Est GFR (Non-Af Amer) 44.3 Diagnostic Findings KUB did not demonstrate any evidence of bowel obstruction CT of the chest revealed a pulmonary nodule but no pulmonary embolus or acute cardiopulmonary process Echocardiogram obtained 08/12/2020: Mildly reduced LV systolic function with ejection fraction 40-45%. Severe biatrial dilation. Severe aortic stenosis. Moderate mitral annular calcification and mild to moderate regurgitation. Mild mitral stenosis. Mild to moderate tricuspid regurgitation with pulmonary pressure 40-50 mm of mercury PG Care Time/CCT Total # of Minutes Spent Total Time Spent with Patient: Total time spent is greater than 50% in coordination of care (as documented) at patient's floor/unit and/or counseling patient: Coding Level of Care Code 86342 Initial Inpt Care Lvl 3 Diagnoses Cardiomyopathy I42.9 Cardiac pacemaker Z95.0 CAD (coronary artery disease) I25.708 Coronary Disease-Associated Artery/Lesion type: bypass graft [place] vs. transplanted heart: [place] heart Associated angina: with stable angina Hypoxia R09.02 Aortic stenosis I35.0 Complete atrioventricular block I44.2 (1) CAD (coronary artery disease) Coronary Disease-Associated Artery/Lesion type: bypass graft [place] vs. transplanted heart: [place] heart Associated angina: with stable angina Qualified Code(s): I25.708 - Atherosclerosis of coronary artery bypass graft(s), unspecified, with other forms of angina pectoris
--- NOTE | 2022-02-14 18:23 | Hospitalist Progress Note ---
Date of Service February 14, 2022 Assessment & Plan (1) Abdominal pain: Plan: Attending: Dr. Coulter Impression: 86-year-old female admitted 02/13/2022 with abdominal pain. Started on Macrobid for UTI. Documented hypoxia in the emergency room. Corrected with 2 L of supplemental oxygen via nasal cannula. Patient with no events overnight. Feeling better and hoping to be discharged home tomorrow Etiology unclear Present with no abdominal discomfort. Normal bowel sounds, no distention. Patient does have some diffuse tenderness but no evidence of peritonitis. Possibly secondary to UTI. KUB with no evidence of bowel obstruction. CTA of the abdomen with moderate wall thickening of the stomach consistent with gastritis or partial distention. No leukocytosis or fever UAWith1+ esterase, Greater than 30 white blood cells,Greater than 30 epithelial cells,1+ bacteria, 2+ protein. Urine culture with lactobacillus.No sensitivities Started on Macrobid and then changed to ceftriaxone.Today is day #2 of antibiotics (2) Hypoxia: Plan: Patient with documented hypoxia in the ER. Patient's daughter reports that she has supplemental O2 at home but seldom uses it. They do have a pulse oximeter and can monitor SaO2 at home In the meantime we will continue duo nebs and albuterol HFA as needed Possible bronchitis CT of the chest. Continue to treat with ceftriaxone. Will treat empirically on discharge Continue with duo nebs and albuterol as needed Supplemental oxygen maintain SaO2 at 90% or above Patient should have 2-step prior to discharge (3) Hypertension: Plan: Blood pressure elevated, 179/68 presently. No complaints of chest pain, SOB presently -Continue Valsartan 20mg po daily -Continue Carvedilol (4) COPD (chronic obstructive pulmonary disease): Plan: SOB and wheezes have improved Continue Duonebs and Albuterol Due to advanced age, will treat symptomatically. No plans for PFTs Quit smoking many years ago (5) CKD (chronic kidney disease), stage III: Plan: Near baseline -Monitor renal function (6) Diabetes mellitus: Plan: Diet controlled Monitor blood sugars (7) Depression: Plan: Chronic -Continue Sertraline (8) Secondary hyperparathyroidism of renal origin: Plan: Chronic -Continue Calcitriol 3x weekly (9) Dyslipidemia: Plan: Chronic -Continue Lovastatin 40mg po daily Plan We will plan on discharging home with private care givers daily Awaiting PT/OT evaluation Family is on board with patient going home when medically stable Admission and Anticipated Discharge Date Admission Date: February 13, 2022 Supervising Physician Co-Signing Physician Notes chart reviewed and case d/w E Dheeraj PAC, as above Subjective Attending: Dr. Olvera Patient seen and examined at bedside with daughter, granddaughter, great granddaughter. Patient continues to have some slight disorientation. She denies any shortness of breath, chest pain, tightness. No nausea or vomiting. She states that she is doing well but daughter notes that she has been weak but is ambulating well with a walker. Apparently patient has a walker on each floor of her home. 1 bad fall last year but seems to be doing better now. PT/OT eval's pending. Patient hopes to go home tomorrow. Review of Systems Review of Systems: A total of 10 systems was reviewed and is negative other than as listed in the HPI Physical Exam Physical Exam: GENERAL : No acute distress EYES: No icterus, gaze conjugate NOSE: No evidence of epistaxis MOUTH: No lesions or candidiasis NECK: Supple LUNGS: CTA B/L, no wheezes, rales or rhonchi HEART: Regular, rate controlled ABDOMEN: Soft, NT, ND, BS Present EXTREMITIES: No LE edema, pedal pulses intact NEURO: A&OX3 Results & Data Results & Data ([facility]) Vital Signs (Past 12 Hours) Vital Signs Temp Pulse Resp BP BP Pulse Ox O2 Del Method 02/14/22 15:42 61 18 98 Nasal Cannula 02/14/22 15:40 36.6 C 62 18 127/58 L 98 Room Air 02/14/22 11:25 60 18 96 Nasal Cannula 02/14/22 07:35 65 18 98 Nasal Cannula 02/14/22 07:07 Nasal Cannula 02/14/22 07:03 36.5 C 65 18 163/75 H 97 Nasal Cannula O2 Flow Rate 02/14/22 15:42 2 02/14/22 15:40 02/14/22 11:25 2 02/14/22 07:35 2 02/14/22 07:07 2 02/14/22 07:03 2 Critical Care Results & Data Vital Signs (Past 12 Hours) Vital Signs Temp Pulse Resp BP BP Pulse Ox O2 Del Method 02/14/22 15:42 61 18 98 Nasal Cannula 02/14/22 15:40 36.6 C 62 18 127/58 L 98 Room Air 02/14/22 11:25 60 18 96 Nasal Cannula 02/14/22 07:35 65 18 98 Nasal Cannula 02/14/22 07:07 Nasal Cannula 02/14/22 07:03 36.5 C 65 18 163/75 H 97 Nasal Cannula O2 Flow Rate 02/14/22 15:42 2 02/14/22 15:40 02/14/22 11:25 2 02/14/22 07:35 2 02/14/22 07:07 2 02/14/22 07:03 2 Lab & Micro Results (Past 24 Hours) No Data to Display Creatinine 1.20 mg/dl (0.6-1.2) 02/15/22 Estimated GFR ( Amer) 46.7 ml/min 02/15/22 Estimated GFR (Non-Af Amer) 40.3 ml/min 02/15/22 No Data to Display Microbiology 02/13/22 Unknown Urine Culture - Preliminary Urine,Random Lactobacillus species Diagnostic Findings (Past 24 Hours) Venogram CT 02/13/22 16:43 CT abdomen pelvis veno w con HISTORY: 86 years-old Female Abdominal pain for 3 months subacute generalized abdominal pain COMPARISON: CTA of the chest of same day, CT abdomen and pelvis 06/12/2020, CT left hip 07/12/2021 TECHNIQUE: CT abdomen and pelvis was obtained following the intravenous ministration of 110 mL Optiray 320. A dose lowering technique was used consistent with the principals of SISSY. FINDINGS: Cardiomegaly with prior median sternotomy. Partially imaged pacer leads with prosthetic mitral valve. Trace pleural effusions with subsegmental bibasilar atelectasis. No pneumatosis or pneumoperitoneum identified. Unremarkable spleen, and adrenal glands. Atrophic pancreas with unchanged mild pancreatic ductal dilation. Cholecystectomy with likely postsurgical mild biliary ductal dilation, also stable from prior. Unchanged mild marginal nodularity of the liver. There is patency of the hepatic and portal veins. Cortical scarring with parenchymal thinning of the left greater than right kidn ey is again noted along with renal vascular calcifications. No hydronephrosis. There are a few subcentimeter hypodensities of the kidneys suggestive of probable cysts. 1.1 cm cyst of the inferior pole left kidney. Contrast within the renal collecting systems and ureters from the CTA of the chest. Unremarkable urinary bladder. Hysterectomy. Atherosclerosis of the aorta without aneurysm. No lymphadenopathy. Metallic density structure within the right inguinal tissues again noted. No bowel obstruction. There is mild diffuse wall thickening of the stomach with increased enhancement. Colonic diverticulosis without acute diverticulitis. Mild colonic fecal retention. Unremarkable soft tissues. Demineralized appearance of the bones with degenerative changes of the spine, pelvis and left hip. Right hip total joint arthroplasty. Intact cannulated screws within the left femoral neck. Sclerosis of the left femoral head may represent avascular necrosis. Chronic L1 and L3 compression deformities. IMPRESSION: 1. No bowel obstruction or bowel wall thickening. 2. Mild nonspecific wall thickening of the mid to distal stomach may be secondary to partial distention versus a mild nonspecific gastritis. 3. Colonic diverticulosis. 4. Trace pleural effusions. 5. Additional findings as above. ACT 112: Negative or not required by law. The above report was generated using voice recognition software. It may contain grammatical, syntax or spelling errors. Electronically signed by: Joseph Alcantar M.D. 02/14/2022 9:12 AM I & O Totals 24 Hours 02/13/22 02/14/22 02/15/22 06:59 06:59 06:59 Intake Total 250 / 250 475 / 475 Output Total 550 / 550 200 / 200 Balance -300 / -300 275 / 275 Cumulative 02/12/22 22:06 thru 02/14/22 15:29 Intake Total 725 Output Total 750 Balance -25 RT Ventilator Mngmt (Last Documented) Ventilator Ordered Settings Respiratory Rate [Exercises] 20 02/13/22 17:36 Respiratory Rate 18 02/14/22 15:42 Ventilator - PT Measurements Respiratory Rate [Exercises] 20 Respiratory Rate 18 PG Care Time/CCT Total # of Minutes Spent Total Time Spent with Patient: Total time spent is greater than 50% in coordination of care (as documented) at patient's floor/unit and/or counseling patient: Coding Level of Care Code 15510 SUB INP/OBS CARE 2/35MIN (25 - SIGNIFICANT, SEPARATELY IDENTIFIABLE ) Diagnoses Abdominal pain R10.9 Hypoxia R09.02 Hypertension I10 COPD (chronic obstructive pulmonary disease) J44.9 CKD (chronic kidney disease), stage III N18.30 Chronic kidney disease stage 3 subtype: unspecified whether 3a or 3b Diabetes mellitus E11.9; Z79.4 Diabetes mellitus complication status: without complication Diabetes mellitus halfway insulin use: with halfway use Diabetes mellitus type: type 2 Depression F32.9 Secondary hyperparathyroidism of renal origin N25.81 Dyslipidemia E78.5 Time Spent (min) 45 Comment 30 minutes of [id number]-lv-mgrg time with patient and family (1) Diabetes mellitus Diabetes mellitus complication status: without complication Diabetes mellitus watermelon inspector insulin use: with halfway use Diabetes mellitus type: type 2 Qualified Code(s): E11.9 - Type 2 diabetes mellitus without complications; Z79.4 - shelter (current) use of insulin (2) CKD (chronic kidney disease), stage III Chronic kidney disease stage 3 subtype: unspecified whether 3a or 3b Qualified Code(s): N18.30 - Chronic kidney disease, stage 3 unspecified
[2022-02-14] MEDS: LOVASTATIN 20 MG TAB PO SCH (19:58)
[2022-02-14] MEDS ORDERED: CALCITRIOL 0.25 MCG CAPSULE PO SCH (21:00)
[2022-02-15] MEDS: ALBUT/IPRATROP 3MG/0.5MG NEB 3 ML VIAL NEB SCH ×4 (04:07→15:00)
[2022-02-15] MEDS: ACETAMINOPHEN 325 MG TAB PO SCH ×2 (06:00→12:22)
[2022-02-15] MEDS: PANTOprazole 40 MG TAB PO SCH (06:00)
[2022-02-15] MEDS: cefTRIAXone SODIUM 1,000 MG in DEXTROSE 5% AD-VAN 50 ML IV SCH (07:51)
[2022-02-15 08:57] LABS: Creatinine Clr Calc Pharmacy 23.3 ml/min; Est GFR (African American) 46.7 ml/min; Est GFR (Non-African American) 40.3 ml/min
[2022-02-15] MEDS: ENOXAPARIN INJ 30 MG/0.3 ML SYR SQ SCH (08:57)
[2022-02-15] MEDS: GABAPENTIN 100 MG CAP PO SCH ×2 (08:58→15:23)
[2022-02-15] MEDS: SERTRALINE HCL 50 MG TABLET PO SCH (08:59)
[2022-02-15] MEDS: carvediloL 12.5 MG TAB PO SCH (08:59)
[2022-02-15] MEDS: VALSARTAN 80 MG TAB PO SCH (08:59)
--- NOTE | 2022-02-15 16:32 | Discharge Summary ---
Date of Service February 15, 2022 Admission HPI Per Admitting Provider Kassy Vasquez is an 86yo female with history of DM, COPD, CKD and prior cerebellar infarct presenting with abdominal pain and shortness of breath. Patient had acute onset of upper abdominal pain two days ago. She reports the pain as severe, 10/10, pinching in nature. Located predominantly in bandlike distribution of her upper abdomen but some involvement of suprapubic region as well. She reports the discomfort lasted most of the night two nights ago but was resolved in the morning. This evening prior to arrival she had similar discomfort, severe, 10/10. She reports feeling warm during the episode then having a cold sweat. She reports eating well at home. She is having normal bowel movements - occasionally loose - no blood or mucus, passing flatus without difficulty. She reports some abdominal distention during her episodes of pain. No association with meals. She has had some nausea, no vomiting. No additional complaints at this time. In the ER she was found to be hypoxic at 88% on room air requiring supplemental O2. She does have O2 at home which she uses occasionally - 2 liters "every now and then". She has a dry cough as well. Admission Exam Per Admitting Provider Physical Exam: General: frail, elderly female patient resting comfortably, NAD, non-toxic in appearance, AA&O x 4 Skin: warm, dry, intact, no rashes or lesions HEENT: NC/AT, PERRL, EOMI, anicteric sclera, conjunctiva without injection, external ear normal to inspection and nontender, nares patent, moist mucus membranes, dentition intact, no oropharyngeal lesions, neck supple, trachea midline, no LAD, no thyromegaly, no JVD Heart: +S1/S2, regular, 4/6 CHASTITY across precordium with radiation to bilateral c arotids and into axilla Lungs: diminished breath sounds bilaterally with some end-expiratory wheezing Abd: +BS, soft, non-distended, diffuse tenderness without rebound/guarding/peritonitis Ext: warm, 2+ pulses in UE/LE bilaterally, no clubbing/cyanosis or edema Neuro: nonfocal, patient AA&O x 4, speech intact, no facial droop, moving all extremities on command with equal strength 5/5 Principal Diagnosis Chest pain, abdominal pain, shortness of breath Discharge Exam GENERAL : No acute distress EYES: No icterus, gaze conjugate NOSE: No evidence of epistaxis MOUTH: No lesions or candidiasis NECK: Supple LUNGS: CTA B/L, no wheezes, rales or rhonchi HEART: Regular, rate controlled ABDOMEN: Soft, NT, ND, BS Present EXTREMITIES: No LE edema, pedal pulses intact NEURO: A&OX3 Discharge Data Allergies Allergy/AdvReac Type Severity Reaction Status Date / Time tamsulosin Allergy Severe SHORTNESS Verified 02/16/22 10:02 OF BREATH butalbital Allergy Intermediate SHORTNESS Verified 02/16/22 10:02 OF BREATH nitrofurantoin Allergy Unknown Unknown Verified 02/16/22 10:02 [From Macrobid] Cephalosporins AdvReac Severe TONGUE Verified 02/16/22 10:02 SWELLING WITH KEFLEX- tolerating keflex 03/16/20 levetiracetam AdvReac Intermediate RASH Verified 02/16/22 10:02 morphine AdvReac Intermediate hallucinati Verified 02/16/22 10:02 ons Sulfa (Sulfonamide AdvReac Unknown "SULFA Verified 02/16/22 10:02 Antibiotics) DRUGS" - UNKNOWN Consultations 02/13/22 01:06 ED Decision to Admit Stat 02/13/22 16:42 Consult Cardiology Routine Ordered Studies 02/12/22 22:56 CT angio chest PE protocol Stat CHEST CTA for PULMONARY ARTERIES CT DOSE: 227.82 mGy.cm HISTORY: dyspnea, chest pain radiating into back TECHNIQUE: Multiaxial CT images of the chest were performed following the intravenous administration of contrast to evaluate the pulmonary arteries. Maximal intensity projection images were also obtained. A dose lowering technique was utilized adhering to the principles of ALARA. COMPARISON STUDY: Chest CT 06/15/2019. FINDINGS: The visualized liver, spleen, and right adrenal gland are unremarkable. Multinodular thyroid gland. Left-sided pacemaker and poststernotomy changes. No mediastinal or hilar lymphadenopathy. The heart is mildly enlarged. No pleural or pericardial effusions. Normal caliber esophagus. Calcified plaque within the normal caliber thoracic aorta. No evidence for an aortic dissection. The main pulmonary artery is distended up to 3.2 cm consistent with arterial hypertension. No filling defects within the pulmonary arteries to suggest a pulmonary embolus. There are old, healed left-sided rib fractures. No pneumothorax. Partial opacification of a few the bilateral lower lobe bronchi. There is mild bronchial wall thickening. Mild emphysema. Mild interlobular septal thickening. A few scattered linear scarlike density seen within the mid to lower lung zones. Calcified granuloma within the base of the left lower lobe. An 8 mm left lower lobe pulmonary nodule on image 148. A 4 mm nodule within the right upper lobe on image 197. No focal lung consolidations to suggest a pneumonia. IMPRESSION: 1. No evidence for a pulmonary embolus. 2. An 8 mm nodule within the left lower lobe. This is concerning for a primary bronchogenic malignancy. Follow-up PET/CT or [address] follow-up recommended for further evaluation. 3. Mild emphysema. 4. Mild interlobular septal thickening. This could represent mild congestive change. 5. Pulmonary arterial hypertension. 6. Mild bronchial wall thickening with a few partially opacified distal lower lobe bronchi. This may represent a bronchitis. ACT 112: Positive. There are findings on this exam that require communication between the performing entity and the patient following Patient Test Result Information Act ([place] Act 112) guidelines. Electronically signed by: Delta Barrientos M.D. 02/13/2022 9:17 AM 02/13/22 16:43 CT abdomen pelvis veno w con Routine CT abdomen pelvis veno w con HISTORY: 86 years-old Female Abdominal pain for 3 months subacute generalized abdominal pain COMPARISON: CTA of the chest of same day, CT abdomen and pelvis 06/12/2020, CT left hip 07/12/2021 TECHNIQUE: CT abdomen and pelvis was obtained following the intravenous minis tration of 110 mL Optiray 320. A dose lowering technique was used consistent with the principals of SISSY. FINDINGS: Cardiomegaly with prior median sternotomy. Partially imaged pacer leads with prosthetic mitral valve. Trace pleural effusions with subsegmental bibasilar atelectasis. No pneumatosis or pneumoperitoneum identified. Unremarkable spleen, and adrenal glands. Atrophic pancreas with unchanged mild pancreatic ductal dilation. Cholecystectomy with likely postsurgical mild biliary ductal dilation, also stable from prior. Unchanged mild marginal nodularity of the liver. There is patency of the hepatic and portal veins. Cortical scarring with parenchymal thinning of the left greater than right kidney is again noted along with renal vascular calcifications. No hydronephrosis. There are a few subcentimeter hypodensities of the kidneys suggestive of probable cysts. 1.1 cm cyst of the inferior pole left kidney. Contrast within the renal collecting systems and ureters from the CTA of the chest. Unremarkable urinary bladder. Hysterectomy. Atherosclerosis of the aorta without aneurysm. No lymphadenopathy. Metallic density structure within the right inguinal tissues again noted. No bowel obstruction. There is mild diffuse wall thickening of the stomach with increased enhancement. Colonic diverticulosis without acute diverticulitis. Mild colonic fecal retention. Unremarkable soft tissues. Demineralized appearance of the bones with degenerative changes of the spine, pelvis and left hip. Right hip total joint arthroplasty. Intact cannulated screws within the left femoral neck. Sclerosis of the left femoral head may represent avascular necrosis. Chronic L1 and L3 compression deformities. IMPRESSION: 1. No bowel obstruction or bowel wall thickening. 2. Mild nonspecific wall thickening of the mid to distal stomach may be secondary to partial distention versus a mild nonspecific gastritis. 3. Colonic diverticulosis. 4. Trace pleural effusions. 5. Additional findings as above. ACT 112: Negative or not required by law. The above report was generated using voice recognition software. It may contain grammatical, syntax or spelling errors. Electronically signed by: Joseph Alcantar M.D. 02/14/2022 9:12 AM Hospital Course (1) Abdominal pain: Attending: Dr. Vital Impression: 86-year-old female admitted 02/13/2022 with abdominal pain. Started on Macrobid for UTI. Documented hypoxia in the emergency room. Corrected with 2 L of supplemental oxygen via nasal cannula. Patient with no events overnight. Feeling better and hoping to be discharged home today Etiology unclear Present with no abdominal discomfort. Normal bowel sounds, no distention. Patient does have some diffuse tenderness but no evidence of peritonitis. Possibly secondary to UTI. KUB with no evidence of bowel obstruction. CTA of the abdomen with moderate wall thickening of the stomach consistent with gastritis or partial distention. Patient is on pantoprazole 40 mg p.o. daily at home. Will increase to twice daily for 30 days and recommend GI referral. At this time patient is refusing GI referral and does not want EGD. Patient to discuss further with primary care physician No leukocytosis or fever UA With1+ esterase, Greater than 30 white blood cells,Greater than 30 epithelial cells,1+ bacteria, 2+ protein. Urine culture with lactobacillus.No sensitivities Started on Macrobid and then changed to ceftriaxone.Today is day #3 of antibiotics Will discharge on Augmentin for an additional 5 days to cover UTI as well as bronchitis/pneumonitis (2) Hypoxia: Patient with documented hypoxia in the ER. Patient's daughter reports that she has supplemental O2 at home but seldom uses it. They do have a pulse oximeter and can monitor SaO2 at home In the meantime we will continue duo nebs and albuterol HFA as needed Possible bronchitis CT of the chest. Ceftriaxone inpatient. Will treat empirically on discharge with 5 days of Augmentin. Rx transmitted to [facility] in [place] Continue with duo nebs and albuterol as needed Supplemental oxygen maintain SaO2 at 90% or above No decrease in SaO2 with ambulation. See 2-step below. (3) Hypertension: Blood pressure elevated, 179/68 presently. No complaints of chest pain, SOB presently -Valsartan 20mg po daily was given while inpatient. Will continue home dose of 20 mg PO daily on discharge and have her follow up with PCP -Continue Carvedilol (4) COPD (chronic obstructive pulmonary disease): SOB and wheezes have improved Continue Duonebs and Albuterol Due to advanced age, will treat symptomatically. No plans for PFTs Quit smoking many years ago (5) CKD (chronic kidney disease), stage III: Near baseline -Monitor renal function (6) Diabetes mellitus: Diet controlled Monitor blood sugars (7) Depression: Chronic -Continue Sertraline (8) Secondary hyperparathyroidism of renal origin: Chronic -Continue Calcitriol 3x weekly (9) Dyslipidemia: Chronic -Continue Lovastatin 40mg po daily (10) Chronic combined systolic (congestive) and diastolic (congestive) heart failure: Plan Discharge home with private care givers daily. No need for home PT/OT per inpatient evaluation. Family is aware that she will require increasing care as she ages. Total Time Total Time Spent Total Time Spent (In Minutes): 45 minutes Discharge Plan Discharge Items Patient Disposition: Home - Self-Care Reason For Visit: CP AND SOB Discharge Diagnosis: Abdominal pain andshortness of breath Condition on Discharge: Good Activity: Resume your previous activity Lifting: Gradually increase as tolerated Bathing: No limitations Exercise/Sports: Gradually increase as tolerated Weightbearing: Full weightbearing Non-emergency contact: Primary Care Provider Call non-emergency contact if: you have any medication questions and your sympt oms worsen Follow-up/Referrals: Crystal Mcguire CRNP [Primary Care Provider] - 02/25/22 10:30 am Diet: Carb Consistent or DM2 and Low Sodium (2gm) Addtl Attending Provider Instructions: You were admitted with abdominal pain, chest pain, shortness of breath. You are found to have low oxygen levels (hypoxia) and were placed on oxygen. CT scan of the abdomen showed some thickening of the wall of the stomach suggesting gastritis. All other studies were negative. You were found to have a urinary tract infection and probable bronchitis. He was started on ceftriaxone while in the hospital and you are being discharged on Augmentin. You should complete an additional 5 days of antibiotics. A prescription has been called into [facility] in [place]. You should increase your Protonix (pantoprazole) to 40 mg twice a day for 30 da ys and then go back to usual dose of 1 time daily. It is recommended that you follow-up with gastroenterology as you may benefit from an EGD to see if you have an ulcer or other irritation causing your abdominal pain. You should discuss this with your primary care physician at your follow-up visit. You can resume all of your other home medications. Call your family doctor if you have any ongoing issues. Pending Studies at Discharge: No Stand-Alone Forms: My [facility] Medications and DC Order Prescriptions: New amoxicillin-pot clavulanate [Augmentin] 500-125 mg tablet 1 tab PO BID Qty: 10 0RF Rx Instructions: Take with food Continued calcium carbonate-vitamin D3 [Os-Emile 500 + D3] 500 mg(1,250mg) -200 unit tablet 1 tab PO QAM Qty: 0 ipratropium-albuterol 0.5 mg-3 mg(2.5 mg base)/3 mL solution for nebulization 3 ml INHALATION Q4H PRN (Reason: Wheezing) Qty: 180 8RF (DME) Easy Touch Twist Lancets 32 gauge misc See Rx Instructions .Route Qty: 100 1RF Rx Instructions: TESTS ONCE DAILY ferrous sulfate 325 mg (65 mg iron) tablet 325 mg PO QAM Qty: 90 3RF gabapentin 100 mg capsule 100 mg PO TID Qty: 270 3RF lovastatin 40 mg tablet 40 mg PO PM Qty: 90 3RF ProSource No Carb 15-60 gram-kcal/30 mL liquid 30 ml PO DAILY Qty: 3548 0RF Rx Instructions: confirmed on rolling [place] dc instructions and with patient carvedilol 12.5 mg tablet 12.5 mg PO BID Qty: 180 3RF Rx Instructions: must administer with a meal/food calcitriol 0.25 mcg capsule 0.25 mcg PO 3XWK Qty: 36 5RF Rx Instructions: 0.25 mcg PO every Monday, Monday, and Monday in the evening (DME) OneTouch Verio test strips Strip See Rx Instructions .Route Qty: 100 3RF Rx Instructions: TEST ONCE DAILY E11.9 valsartan 40 mg tablet 20 mg PO QAM Qty: 45 3RF Hold Instructions: BP low sertraline 50 mg tablet 50 mg PO QAM Qty: 90 3RF methenamine hippurate 1 gram tablet 1 g PO BID Rx Instructions: ON HOLD WHILE ON MACROBID, 02/08/22--02/15/21 ascorbic acid (vitamin C) 500 mg tablet 500 mg PO QAM Premarin 0.625 mg/gram cream 1 applic vaginal UD acetaminophen [Tylenol Extra Strength] 500 mg Tablet 650 mg PO Q6H Qty: 30 0RF furosemide 20 mg tablet 20 mg PO QAM PRN (Reason: above 2 pounds of dry weight: 106 lbs) Qty: 90 3RF Systane Gel 0.4-0.3 % Drops,Gel 1 drp ophthalmic (eye) Q8H PRN (Reason: Dry Eyes) Rx Instructions: [id number] Changed pantoprazole 40 mg tablet,delayed release (DR/EC) 40 mg PO BID Qty: 90 3RF Discontinued nitrofurantoin monohyd/m-cryst [Macrobid] 100 mg capsule 100 mg PO BID Qty: 14 0RF Rx Instructions: STARTED 02/08/22 FOR 7 DAYS. must administer with a meal/food Discharge Orders: Discharge Order (Routine); Ordered 02/15/22 Ordered By: Christos Rincon/Other Patient Handouts: Urinary Tract Infections in Women Admission Data Admit Date/Time: 02/13/22 01:38 Attending Provider: Rui Vital Admit Provider: Zora Lagunas Primary Care Provider: rCystal Mcguire Other Providers: Stephen Breaux ; Zora Lagunas Other Interventions: Discharge Summary Assessment (RN) Last Done: 02/15/22 16:23 Supervising Physician Co-Signing Physician Notes Attending Attestation and Discharge Note - Pt seen/examined, chart reviewed, care plan d/w PA Christos Esqueda. I agree w/ the godinez components of his d/c documentation. 86yo female with h/o COPD, , PAF, cardiomyopathy, pacemaker, CAD - presented with abdominal pain along with transient hypoxia. Underwent extensive imaging including CT chest/abd/pelvis. On CT abdomen there was nonspecific inflammation of the stomach. On CT chest there was evidence of mild emphysematous changes, mild bronchial wall thickening, and multiple pulmonary nodules. During the stay she was treated for UTI. The antibiotics would have covered any bronchitis (if bacterial in origin). She was seen by cardiology and it was felt that her presenting symptoms (abd pain, etc) were unlikely to be cardiac in origin. A 2-step ambulatory O2 test on day of discharge did not show need for home O2. To cover for the possibility that her presenting pain was due to gastritis or a stomach issue she was asked to increase her PPI to BID dosing. With respect to the LLL pulmonary nodule she will need close f/u with her PCP and have pulmonary referral or repeat imaging, if desired. A course of PO abx was prescribed for her bronchitis/UTI at discharge. Discharge exam - gen - thin, NAD mouth - MMM neck - no JVD heart - RRR, s1 s2, 2/6 systolic murmur RUSB lungs - mild end-exp wheezes b/l - scattered; no rales abd - soft NT ND BS+ ext - trace edema b/l, pulses 2+ b/l Rui Vital MD Coding Level of Care Code HOSP INP/OBS DISCH >30 MIN Diagnoses Abdominal pain R10.9 Hypoxia R09.02 Hypertension I10 COPD (chronic obstructive pulmonary disease) J44.9 CKD (chronic kidney disease), stage III N18.30 Chronic kidney disease stage 3 subtype: unspecified whether 3a or 3b Diabetes mellitus E11.9; Z79.4 Diabetes mellitus complication status: without complication 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
== END 2022-02-15 16:52 | disposition home or self-care (01) | DRG 191 ==
LOC: ED 22:16 → SUATTDRO 02-13 01:38 → 3N 02-13 01:38

== ENCOUNTER 2023-01-15 10:21 | Inpatient (IN) ==
--- OUTSIDE RECORDS SUMMARY | 2023-01-15 10:28 | External Medical Summary | Continuity of Care Document ---
Author Name Unknown Organization [facility] Address [address] [place] [address] Care Team Providers Care Compliance Nurse Name Role Phone Crystal Mcguire Primary Care Physician [phone] Encounter [id number] Date(s): 12/30/22 - 12/30/22 [facility] [address] [place] [address], [id number] Discharge Disposition: Home or Self Care Attending Physician: MD Marian, Robel Wilcox Referring Physician: MD Marian, Robel Wilcox Allergies, Adverse Reactions, Alerts Substance Reaction Severity Status nitrofurantoin rash Active morphine hallucinations Active butalbital shortness of breath Active tamsulosin shortness of breath Active cephalosporins tongue swelling Active levETIRAcetam rash Active Functional Status 12/30/22 Speech Pattern Clear 12/30/22 History of Fall in Last 3 Months [place] Y es Presence of Secondary Diagnosis [place] No Use of Ambulatory Aid [place] Crutches/can e/walker IV/Heparin Lock Fall Risk [place] No Gait/Transferring Fall Risk [place] Normal /bedrest/immobile Mental Status Fall Risk [place] Oriented t o own ability [place] Fall Risk Score 40 [place] Fall Risk Low Risk Medications albuterol-ipratropium MDI Start: 04/16/10 12:30:00, 2 puff, inhaled, q6h, Disp# 1 each, Refills: 1, given to patient Start Date: 04/16/10 Stop Date: 06/15/10 Status: Ordered aspirin 81 mg oral enteric coated tablet Start: 04/16/10 12:28:00, 81 mg = 1 tab, PO, Daily, Disp# 30 tab, Refills: 3, given to patient Start Date: 04/16/10 Stop Date: 08/14/10 Status: Ordered calcitriol 0.25 mcg oral capsule Start: 12/28/22 12:49:00 EST, 1 cap, PO, Monday, Monday, Monday Start Date: 12/28/22 Status: Ordered Calcium 600+D Start: 12/28/22 12:49:00 EST, 1 tab, PO, Daily Start Date: 12/28/22 Status: Ordered Coreg 12.5 mg oral tablet Start: 04/16/10 12:28:00, 12.5 mg = 1 tab, PO, bid, Disp# 60 tab, Refills: 1, given to patient Start Date: 04/16/10 Stop Date: 06/15/10 Status: Ordered Coumadin 2 mg oral tablet Start: 04/16/10 12:31:00, 4 mg = 2 tab, PO, Daily, Disp# 60 tab, Refills: 1, given to patient Start Date: 04/16/10 Stop Date: 06/15/10 Status: Ordered furosemide 20 mg oral tablet Start: 12/23/19 14:01:00 EST, 1 tab, PO, Daily Start Date: 12/23/19 Status: Ordered gabapentin 100 mg oral capsule Start: 12/28/22 12:47:00 EST, 1 cap, PO, tid Start Date: 12/28/22 Status: Ordered Lasix 40 mg oral tablet Start: 04/07/10 10:48:00, 40 mg = 1 tab, PO, Daily, given to patient Start Date: 04/07/10 Status: Ordered lovastatin 40 mg oral tablet Start: 12/23/19 14:01:00 EST, 1 tab, PO, Daily Start Date: 12/23/19 Status: Ordered methenamine hippurate 1 g oral tablet Start: 12/28/22 12:46:00 EST, 1 tab, PO, bid Start Date: 12/28/22 Status: Ordered pantoprazole 40 mg oral delayed release tablet Start: 12/23/19 14:01:00 EST, 1 tab, PO, Daily Start Date: 12/23/19 Status: Ordered sertraline 50 mg oral tablet Start: 12/23/19 14:01:00 EST, 1 tab, PO, Daily Start Date: 12/23/19 Status: Ordered valsartan 40 mg oral tablet Start: 04/16/10 12:31:00, 40 mg = 1 tab, PO, Daily, Disp# 30 tab, Refills: 1, given to patient Start Date: 04/16/10 Stop Date: 06/15/10 Status: Ordered Vitamin C Start: 12/28/22 12:49:00 EST, 500 mg =, PO, Daily Start Date: 12/28/22 Status: Ordered Mental Status 12/30/22 Communication Barrier Present No 12/30/22 Primary Language German Problem List Condition Confirmation Course Effective Dates Status H ealth Status Informant CABG - Coronary artery bypass graft Confirmed Active Claudication Confirmed Active Coronary artery disease Confirmed Active DIABETES MELLITUS Confirmed Active Pelvic fracture Confirmed Active Heart attack Confirmed Active Heart disease Confirmed Active HEART FAILURE Confirmed Active Hyperlipidemia Confirmed Active HYPERTENSION Confirmed Active Mitral valve operation Confirmed Active MRSA 1 Confirmed 03/26/10 Active Neoplasm of uncertain behavior of skin Confirmed Active Renal insufficiency syndrome Confirmed Active Seborrhea Confirmed Active Seborrheic keratoses Confirmed Active Skin lesion Confirmed Active Stroke Confirmed Active Varicose veins Confirmed Active 1MRSA + PCR Procedures Procedure Date Related Diagnosis Body Site Status VITRECTOMY (Right, Eye) 1 12/30/22 Completed Shave biopsy of skin 07/23/15 Comp leted Pacemaker 10/2011 Completed Heart valve repair 03/2010 Comple kasandra Appendectomy Completed Cataracts Completed Cholecystectomy Completed Double bypass Completed Hip replacement 2 Complet ed PETER - Total abdominal hyster ectomy and bilateral salpingo-oophorectomy Completed Tonsillectomy Completed 1auto-populated from documented surgical case 2Both hips Vital Signs Most recent to oldest [Reference Range]: 1 2 3 Height 152 cm (12/30/22 6:00 AM) Patient Weight 51 kg (12/30/22 6:00 AM) Body Mass Index 22.07 kg/m2 (12/30/22 6:00 AM) Temperature [36.5-37.9 DegC] 36.5 DegC (12/30/22 10:06 AM) 36.5 DegC (12/30/22 10:06 AM) 36.9 DegC (12/30/22 9:47 AM) Heart Rate 66 bpm (12/30/22 10:06 AM) Respiratory Rate 16 br/min (12/30/22 10:06 AM) 16 br/min (12/30/22 10:06 AM) 16 br/min (12/30/22 9:47 AM) Blood Pressure 143/57mmHg (12/30/22 10:06 AM) 143/57mmHg (12/30/22 10:06 AM) 142/52mmHg (12/30/22 9:47 AM) Mean Blood Pressure 83 mmHg (12/30/22 9:30 AM) 73 mmHg (12/30/22 9:15 AM) Cuff Pulse Pressure 86 mmHg (12/30/22 10:06 AM) 90 mmHg (12/30/22 9:47 AM) 65 mmHg (12/30/22 6:00 AM) BP Location # 1 Left Arm (12/30/22 10:06 AM) Left Arm (12/30/22 9:47 AM) Left Arm (12/30/22 9:30 AM) Social History Social History Type Response Smoking Status Former Smoker, quit > 1 yr Sex Female Implantable Device List Procedure Provider Procedure Date Device Type Site Unknown Unknown 12/30/22 Unknown Unknown Device Identifier Serial Number Lot or Batch Number Manufacturing Date Expiration Date Distinct Identification Code MRI Safety Implantable Status Assigning Authority Unknown Unknown NA Unknown 03/02/27 Unknown Unknown Active Unkn own History and physical note * MD Marian, Robel Wilcox: PERFORM Event Display: .HP Authored Date: Name:TIM GATES Patient Number:[id number] :1935 Date of Service:12/30/2022 There are no changes to the history and physical previouslyperformed andscanned into the record. Electronic Signature on File Electronically Reviewed/Signed by: Robel Fonseca MD Author Signature Dt/Tm:12/30/2022 07:20AM Ophthalmology MJB * MD Mtz Amber M: PERFORM, MODIFY, SIGN, VERIFY Event Display: Anes H&P Authored Date: Patient: TIM GATES Age: 87 years Sex: Female : 1935 Associated Diagnoses: None Author: MD Mtz Amber M Preoperative Information Origination of H&P: SDU. Pre-Operative Diagnosis: R eye subluxed intraocular lens . Anesthiesia Preop Info: Procedure: PARS PLANA VITRECTOMY, REMOVAL OF SUBLUXED INTRAOCULAR LENS WITH INSERTION OF INTRAOCULAR LENS, AIR FLUID EXCHANGE, RIGHT EYE Date: 12/30/22 07:30 Surgeons: MD Marian, Robel Wilcox Diagnosis: SUBLUXED INTRAOCULAR LENS, RIGHT EYE . Nursing Information: Nurse Pre Procedure Screening Assessment 12/28/2022 12:19 EST Cardiovascular History Of Chest pain, HTN Controlled, Irregular Rythm, Heart murmur benign, Dyslipidemia, Other: hx of IN; hx of CHF; pacemaker; hx of CABG Anesthesia History Yes Anesthesia Prior Comment hx of diffuculty waking up PostOp Nausea & Vomiting No Family Anesthesia History No prior anesthesia complications Recent URI Resolved Comment none per report Pulmonary History Of Other: COPD Endocrine History Of Diabetes Diabetes Mellitus History Controlled Blood Sugar Gastrointestinal History Of GERD Hematologic History None Reported Neurologic History Of Other: hx of CVA- no deficits reported Psychiatric History Of Depression Renal History Of Other: recurrent UTI's; kidney disease Orthopedic History Of Osteoarthritis Cancer Type SKIN Type of Chemo No Radiation and Oncology No Ophthalmology History Of Cataract . History of Present Illness 87yo 51kg F Case scheduled for general anesthesia PRev AW: 2010 mod mask, mac3, gr2v, 7.5 ETT NPO status reviewed and appropriate to proceed Medical History Past medical history obtained and reviewed from the pre-procedure screening form as noted above. Any significant interval changes are noted below: Yes. Cardiovascular: Coronaries: CABG. Valves: s/p MVR. CHF: Cardiomyopathy, Ischemic. Dysrhythmia: pAF, complete heart block s/p pacer. denies CP Medical Devices: Pacemaker. Renal: Chronic kidney disease, Last Creatinine 1.24. Pulmonary: COPD. stable, some chronic GOOD, PRN nebs and suppl O2 Neurologic: CVA. Gastrointestinal: GERD. Functional Capacity: 1-3 METs = poor. Health Status Allergies: Allergic Reactions (Selected) Severity Not Documented Butalbital- Shortness of breath. Cephalosporins- Tongue swelling. LevETIRAcetam- Rash. Morphine- Hallucinations. Nitrofurantoin- Rash. Tamsulosin- Shortness of breath.. Medications: Medication List (Selected) Inpatient Medications Ordered NS 1,000 mL: 50 mL/HR, IV Fluid, Stop: 01/28/23 18:34:00 EST atropine 1% ophthalmic solution: 1 drop, right eye, To OR, PRN: see order comments phenylephrine 2.5% ophthalmic solution: 1 drop, right eye, To OR, PRN: see order comments tropicamide 1% ophthalmic solution: 1 drop, right eye, To OR, PRN: see order comments Prescriptions Prescribed Coreg 12.5 mg oral tablet: 12.5 mg, 1 tab, PO, bid, 60 tab Coumadin 2 mg oral tablet: 4 mg, 2 tab, PO, Daily, 60 tab Lasix 40 mg oral tablet: 40 mg, 1 tab, PO, Daily albuterol-ipratropium MDI: 2 puff, inhaled, q6h, 1 each aspirin 81 mg oral enteric coated tablet: 81 mg, 1 tab, PO, Daily, 30 tab valsartan 40 mg oral tablet: 40 mg, 1 tab, PO, Daily, 30 tab Documented Medications Documented Calcium 600+D: 1 tab, PO, Daily Vitamin C: 500 mg, PO, Daily calcitriol 0.25 mcg oral capsule: 1 cap, PO, Monday, Monday, Monday furosemide 20 mg oral tablet: 1 tab, PO, Daily gabapentin 100 mg oral capsule: 1 cap, PO, tid lovastatin 40 mg oral tablet: 1 tab, PO, Daily methenamine hippurate 1 g oral tablet: 1 tab, PO, bid pantoprazole 40 mg oral delayed release tablet: 1 tab, PO, Daily sertraline 50 mg oral tablet: 1 tab, PO, Daily. Problem List: All Problems Aortic stenosis / SNOMED CT 575222442 / Confirmed CABG - Coronary artery bypass graft / SNOMED CT 668906323 / Confirmed COPD (chronic obstructive pulmonary disease) / SNOMED CT 09807494 / Confirmed Claudication / SNOMED CT 384526436 / Confirmed CHF (congestive heart failure) / SNOMED CT 71941623 / Confirmed Coronary artery disease / SNOMED CT 8984254317 / Confirmed DIABETES MELLITUS / ICD-9-CM 250 / Confirmed DM (diabetes mellitus) / SNOMED CT 603516365 / Confirmed Pelvic fracture / SNOMED CT 724739283 / Confirmed GERD (gastroesophageal reflux disease) / SNOMED CT 042400210 / Confirmed Heart attack / ICD-9-CM 410.90 / Confirmed Heart disease / ICD-9-CM 429.9 / Confirmed HEART FAILURE / ICD-9-CM 428 / Confirmed Hyperlipidemia / SNOMED CT 81923698 / Confirmed HYPERTENSION / ICD-9-CM 997.91 / Confirmed Kidney disease / SNOMED CT 553680172 / Confirmed Mitral valve operation / SNOMED CT 029084597 / Confirmed MRSA / ICD-9-CM / Confirmed Neoplasm of uncertain behavior of skin / SNOMED CT 428356087 / Confirmed Osteoarthritis / SNOMED CT 3496153122 / Confirmed Renal insufficiency syndrome / SNOMED CT 40057133 / Confirmed Seborrhea / SNOMED CT 245626040 / Confirmed Seborrheic keratoses / SNOMED CT 7032470690 / Confirmed Skin lesion / SNOMED CT 719190259 / Confirmed Stroke / ICD-9-CM 434.91 / Confirmed Varicose veins / SNOMED CT 067126000 / Confirmed. Histories Procedure History: Shave biopsy of skin (884762307) on 07/23/2015 at 80 Years. Pacemaker ([id number]) in the month of 10/2011 at 76 Years. Heart valve repair (836510332) in the month of 03/2010 at 74 Years. Double bypass. Hip replacement (4977359952). Comments: 07/23/2015 13:00 EDT - JULIA Oneill Lauren A Both hips PETER - Total abdominal hysterectomy and bilateral salpingo-oophorectomy (3401342256). Cataracts (9730224827). Tonsillectomy (769717229). Cholecystectomy (56186411). Appendectomy (475779182).. Social History: Cigarrette Smoker? Former Smoker, quit > 1 yr Other Tobacco Use: Never used other tobacco products Alcohol: Recreational Drugs: . Physical Examination VS/Measurements: Vital Signs 12/30/2022 06:00 EST Temperature 36.2 DegC LOW Temperature Route Temporal Respiratory Rate 18 br/min Systolic Blood Pressure 136 mmHg Diastolic Blood Pressure 71 mmHg Cuff Pulse Pressure 65 mmHg Pulse 73 Oxygen Therapy Room air SpO2 97 % , Weight 51 kg. General: Alert and oriented, No acute distress. Airway: Mallampati classification: III (soft palate, base of uvula visible). Mouth: Adequate opening, Teeth ( Missing, remaining denies any loose ). Head: Normocephalic, Atraumatic. Respiratory: Respirations are non-labored. Breath sounds: Prolonged expiratory phase, No wheezes present. Cardiovascular: Normal rate, Regular rhythm, sternotomy scar. Neurologic: Alert, Oriented, slow to answer some questions/a little confused at times. Anesthesiologist Assessment and Plan Problems: No a/w concerns. Cardiac risk factors: CAD, CHF, CVA. Risk of major adverse cardiac event (Revised Cardiac Risk Index): 3 or more = 11%. Cardiovascular risk associated with the procedure: Elevated (>=1%). Disposition: No further testing or evaluation indicated preoperatively, may proceed with procedure as scheduled. ASA Classification: Class III. Anesthetic Plan: Anesthesia provided by other physicians and anesthesia team. Anesthetic technique discussed: General anesthesia. Induction discussed: Intravenously. Airway plan discussed: Laryngeal mask airway. Risks discussed: Nausea-vomiting, Sore throat, Dental injury, Serious complications, Aspiration. Informed consent: Signed by patient, Signed by family (son at bedside signed as witness to consent). History, Physical Exam, Assessment and Plan Completed: 12/30/2022 07:01:00, MD Smith, Estrellita Ferreira. Electronic Signature on File Electronically Reviewed/Signed by: Estrellita Mtz MD Author Signature Dt/Tm:12/30/2022 08:09 AM Department of Anesthesia [facility] Surgical operation note * MD Marian, Robel Wilcox: PERFORM Event Display: .Operative Report Authored Date: [id number] Name:TIM GATES Patient Number:[id number] :1935 Date of Service:12/30/2022 Surgeon:ROBEL FONSECA MD Coiler:None Type of Anesthesia:GA Preoperative Diagnosis:Dislocated intraocular lens,Right eye Postoperative Diagnosis:same OPERATION: Pars plana vitrectomy, intraocular lens exchange with ACIOL, right eye. INDICATIONS: The patient presented with a complaint of decreased vision in the operative eye. Examination revealed a displaced intraocular lens. A discussion of the risks, benefits, and alternatives of the surgery, including potential loss of vision, loss of the eye, bleeding, infection, ,and/or need for further surgery were discussed with the patient and the patient elected to proceed. TECHNIQUE: The operative eye was marked. The patient was ushered to the operating room. Anesthesia was induced. The eye was prepped and draped in normal sterile fashion. A lid speculum was placed about the operative eye. A 50:50 mixture of 0.5% bupivacaine and 2% lidocaine was instilled in the subtenon space inferonasally via a cut down incision. A 25-gauge, self-retaining infusion port was placed 3 - 4 mm posterior to the inferotemporal limbusand confirmed in the vitreous cavity with direct visualization. The infusion was turned on. Thesuperior temporal and nasal ports were placed in a similar fashion. A superior conj peritomy was per formed. Diathermy was used. The light pipe and vitrector were inserted into the eye and a mechanical core vitrectomy was completed. The crescent blade was used to create a5.5 mm scleral tunnel,and the cornea was entered with the keratome. Viscoat was injected into the anterior chamber to protect the cornea. The existing lens was elevated to the anterior chamber usingforceps and then removed through the scleral tunnel incision. An_ACIOL lens with a power of19.0 diopters was inserted into the eye, first placing viscoat andmeasuring the white to white dist to be only 11.5 mm. An Todd MT3 IOL was used. [id number].The lens centered nicelyand a hook was used to rotate the haptics horizontally. The retina was inspected and wound was closedusing 10.0 nylon and waswatertight.TROCARS WERE REMOVED. antibiotics was given. At the completion of the case, the intraocular pressure was physiologic, the pupil was round, the retina was attached and the lens was centered. The eye was patched and shielded. The patient was transported to the recovery room in stable condition. Postoperative care was discussed with the patient and follow-up was given. Electronic Signature on File Electronically Reviewed/Signed by: Robel Fonseca MD Author Signature Dt/Tm:12/30/2022 09:11AM Ophthalmology MJB .D/C Summary * MD Marian, Robel Wilcox: PERFORM Event Display: .D/C Summary Authored Date: [id number] Name:TIM GATES Patient Number:[id number] :1935 Date of Service:12/30/2022 Discharge Date:_ You may call [facility] at during business hours or for after-hours emergencies to have the doctor solar consultant paged. The information below provides you with the instructions and the list of medications you need to betaking following discharge from the hospital. If you have any questions, please ask before leaving. Please carry this letter with you when you see your doctor in the clinic. If you have questions, you can reach us at the numbers above. SPECIAL INSTRUCTIONS: Please remove your patch when you get up in the morning and begin your pre- prescribed eye drop(s) unless otherwise instructed. Bring drop(s) to all appointments. If you are taking other eye drops (to manage glaucoma, for example), please bring them to the post-operative appointment. You may have been instructed to stay in the following position after surgery:NONE. We requestthat you do this as much as possible in the daytime and at night. Pain may be controlled with Tylenol tables (650 mg every six hours) and/or Ibuprofen (800 mg every six hours). If you develop significant pain please call us at . It is normal for the eye to be scratchy, red, light sensitive, and uncomfortable for the first week or so after surgery. Also, itis common for the eye to be quite blurred and to see bubbles and reflections if air was placed in the eye during surgery. Diet:Resume previous diet Activity: TOLERATED Avoid getting soapy water or pool water in your eyes for one weeks after your date of surgery You may return to your usual activities, exercising reasonable judgement unless you are specifically advised otherwise Follow Up - Return appointment(s): TOMORROW [place] 1030 AM Post-operative appointment with surgeon is scheduled for: Tomorrow Morning at [facility] as scheduled See your primary care physician as needed. Electronic Signature on File Electronically Reviewed/Signed by: Robel Fonseca MD Author Signature Dt/Tm:12/30/2022 09:12AM Ophthalmology MJB Patient Care team information Care Team Personnel Name: DAVID Mcguire Candace Position: Referring Member Role: Primary Care Provider Address: Address: [address] [place] [address] [place] Care Team Related Persons Name: HORACE DURAN Address: home [address], [place] [id number] Name: CLEO GATES Address: home [address], [place] [id number] Name: LIZZ GATES Address: home [place], [place] [id number]
--- OUTSIDE RECORDS SUMMARY | 2023-01-15 10:28 | External Medical Summary | Summary of Care ---
Author Name Unknown Organization [facility] Address [address] [place] [address] Phone [phone] Care Team Providers Care Duty Officer Name Role Phone Crystal Mcguire Primary Care Provide r Encounter Details Date Type Department Care Team (Late st Contact Info) Description 01/03/2023 Population Health External Data Unspecified Department Allergies Active Allergy Reactions Criticality Noted Date Comments Sulfa Antibiotics 12/19/2007 documented as of this encounter (statuses as of 01/03/2023) Medications Medication Sig Dispensed Refills Start Date End Date Status CALCIUM + D 600-200 MG-UNIT PO TABS Take by mouth daily. 0 12/19/2007 Active DIOVAN 40 MG PO TABS Take by mouth 20 mg daily . 0 Active Ipratropium-Albut raul 0.5-2.5 (3) MG/3ML Inhalation Solution (Duoneb) Inhale 3 mL by mouth every 4 hours as needed for Shortness of Breath or Wheezing. 0 Active Nebulizer Use as directed. 0 Active Blood Glucose Monitoring Suppl Supplies Use as directed. 0 Active Pantoprazole Sodium 40 MG Oral Tablet Delayed Release (Protonix) Take 40 mg by mouth daily. 0 Active Calcitriol 0.25 MCG Oral Capsule (Rocaltrol) Take 0.25 mcg by mouth daily. 3 days a week - on M// 0 Active Sertraline HCl 50 MG Oral Tablet (Zoloft) Take 50 mg by mouth daily. 0 Active Ferrous Sulfate 325 (65 Fe) MG Oral Tablet (Feosol) Take 325 mg by mouth daily with breakfast. 0 Active Vitamin C 500 MG Oral Tablet (Ascorbic Acid) Take 500 mg by mouth daily. 0 Active Gabapentin 100 MG Oral Capsule (Neurontin) 100 mg am and 200 mg at pm 20 Capsule 0 04/15/2021 Active Estrogens, Conjugated 0.625 MG/GM Vaginal Cream (Premarin) Administer into the vagina 1 g in the morning. 42.5 g 12 04/15/2021 Active Carvedilol 12.5 MG Oral Tablet (Coreg) Take by mouth 1 Tablet in the morning AND 1 Tablet before bedtime. 30 Tablet 0 05/04/2021 Active Methenamine Hippurate 1 GM Oral Tablet Take by mouth 1 g 2 times a day . 60 Tablet 0 05/04/2021 Active Furosemide 20 MG Oral Tablet (Lasix) Take by mouth 1 Tablet in the morning. 0 09/02/2021 Active Sertraline HCl 50 MG Oral Tablet (Zoloft) TAKE ONE TABLET BY MOUTH IN THE MORNING 90 Tablet 3 07/18/2022 07/18/2023 Active Carvedilol 12.5 MG Oral Tablet (Coreg) TAKE ONE TABLET BY MOUTH TWO TIMES A DAY MUST ADMINISTER WITH A MEAL/FOOD 180 Tablet 3 07/07/2022 07/07/2023 Active Furosemide 20 MG Oral Tablet (Lasix) TAKE ONE TABLET BY MOUTH EVERY MORNING NEEDED FOR ABOVE 2 POUNDS OF DRY WEIGHT: 106 LBS 90 Tablet 3 07/01/2022 07/01/2023 Active Calcitriol 0.25 MCG Oral Capsule (Rocaltrol) TAKE ONE CAPSULE BY MOUTH 3 TIMES A WEEK EVERY MONDAY , MONDAY AND MONDAY IN THE EVENING. 36 Capsule 5 07/01/2022 07/01/2023 Active Methenamine Hippurate 1 GM Oral Tablet (Hiprex) TAKE ONE TABLET BY MOUTH TWICE A DAY 180 Tablet 0 06/16/2022 06/16/2023 Active Valsartan 40 MG Oral Tablet (Diovan) TAKE ONE-HALF TABLET BY MOUTH EVERY MORNING 45 Tablet 3 04/25/2022 04/25/2023 Active Gabapentin 100 MG Oral Capsule (Neurontin) TAKE ONE CAPSULE BY MOUTH THREE TIMES A DAY 270 Capsule 3 04/22/2022 04/22/2023 Active Lovastatin 40 MG Oral Tablet TAKE ONE TABLET BY MOUTH EVERY EVENING 90 Tablet 3 04/18/2022 04/18/2023 Active Glucose Blood In Vitro Strip TEST ONCE DAILY 100 Strip 3 11/16/2021 Active Carvedilol 12.5 MG Oral Tablet (Coreg) TAKE ONE TABLET BY MOUTH TWICE A DAY WITH MEAL/FOOD 180 Tablet 3 11/01/2021 Active Methenamine Hippurate 1 GM Oral Tablet (Hiprex) Take 1 Tablet by mouth 2 times a day. 60 Tablet 1 10/11/2022 Active Easy Touch Lancets 32G/Twist TESTS ONCE DAILY 100 Each 3 10/27/2022 Active OneTouch Delica Plus [id number] Use to test blood sugar once daily 100 Each 3 11/01/2022 Active OneTouch Delica Plus Lancing Use to test blood sugar once daily 1 Each 0 11/01/2022 Active Pantoprazole Sodium 40 MG Oral Tablet Delayed Release (Protonix) Take one tablet by mouth twice daily 180 Tablet 3 11/04/2022 Active Methenamine Hippurate 1 GM Oral Tablet (Hiprex) Take 1 Tablet by mouth 2 times a day for 90 days 180 Tablet 3 11/08/2022 Active OneTouch Verio In Vitro Strip (Glucose Blood) TEST ONCE DAILY E11.9 100 Strip 3 12/19/2022 Active documented as of this encounter (statuses as of 01/03/2023) Active Problems Problem Noted Date Diagnosed Date 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 and stage 3a chronic kidney disease 09/02/2021 Advanced care planning/counseling discussion 09/2021 Urinary frequency 04/20/2021 At risk for falls 04/20/2021 Type 2 diabetes mellitus with hyperglycemia 04/2021 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 Gastroparesis 02/04/2008 ADVANCE DIRECTIVE INFORMATION 01/29/2008 Overview: No, Advance Directive brochure offered , patient declined. Gastro-esophageal reflux disease without esophag itis Gastrointestinal hemorrhage Diverticulosis of colon Osteoarthrosis involving multiple sites but not generalized documented as of this encounter (statuses as of 01/03/2023) Resolved Problems Problem Noted Date Diagnosed Date Resolved Date Chronic combined systolic an d diastolic congestive heart failure 11/24/2020 09/02/2021 HTN, goal below 140/80 10/03/201109/02 Overview: Per HTN Protocol #27. HTN, GOAL BELOW 130/80 01/06/200910/05 Overview: Modified per HTN protocol #16. Type 2 diabetes mellitus wit h hemoglobin A1c goal of less than 7.0% 12/11/2008 09/02/2021 Overview: Per Diabetes Taxonomy. ICD-10 update of inactive term HTN, goal to be determined 1 03/08/2008 Overview: Modified per HTN protocol #16. Type 2 diabetes mellitus wit h hemoglobin A1c goal of less than 7.0% 12/11/2008 Overview: Per Diabetes Taxonomy. ICD-10 update of inactive term Dyslipidemia, goal to be determined 01/22/2009 Overview: Per Lipid Taxonomy. documented as of this encounter (statuses as of 01/03/2023) Immunizations Name Administration Dates Next Due Seasonal Influenza, Quadriva lent Hd (Fluzone Hd) 02/02/2021(Deferred: Patient Refused - Pt states she already had it) Seasonal Influenza, Split, I IV3, With Preserve, Inj 12/28/2010,01/26/2009,12/19/2007 documented as of this encounter Social History Tobacco Use Types Packs/Day Years Used Date Smoking Tobacco: Former Cigarettes 0.5 50 Q uit: 01/27/2005 Smokeless Tobacco: Never Alcohol Use Standard Drinks/Week Comments No 0 (1 standard drink = 0.6 oz pur e alcohol) Sex and Gender Information Value Date Recorded Sex Assigned at Not on file Gender Identity Not on file Sexual Orientation Not on file Job Start Date Occupation Industry Not on file Not on file Not on file documented as of this encounter Plan of Treatment Health Maintenance Due Date Last Done Comments DXA Scan 1933 COVID-19 Vaccine (#1) 1933 Depression Screening 1945 Albumin/Creatinine Ratio 1951 Alpha-1 Antitrypsin 1951 Diabetic Eye Exam 1951 Diabetic Foot Exam 1951 O2 ASSESSMENT COMPLETED IN PAST YEAR FOR COPD 1951 DTaP,Tdap,and Td Vaccines (1 - Tdap) 1952 Hepatitis B (1 of 3 - Risk 3-dose series) 1993 Zoster Vaccines (2 of 3) 06/15/2015 04/20/2015 *COPD SEVERITY VERIFIED BY PFT 11/26/2020 HbA1c 07/30/2021 01/29/2021, 01/03/2000 CKD PHOS USE SMARTSET 80759 02/02/2022 12/02/2020, 02/01/2021, 01/31/2021, Additional history exists CKD HGB USE SMARTSET 82995 02/14/202202/14, 02/04/2021, 02/02/2021, Additional history exists Influenza Vaccine (FLU shot) (#1) 2022 11/14/2019, 11/04/2019, 11/06/2018, Additional history exists Pneumococcal Vaccine: 65+ Years Completed 05/05/2014, 12/01/2007 GARDASIL-HPV IMMUNIZATION SERIES Aged Out No longer eligible based on patient's age to complete this topic MENINGOCOCCAL (MENACTRA/MENVEO) Aged Out No longer eligible based on patient's age to complete this topic documented as of this encounter Medical Devices Not on filedocumented as of this encounter Advance Directives Documents on File Type Date Recorded Patient Anatomic Pathology Manager Expl anation Advance Directives and Living Will 09/04/2017 ADVANCE DIRECTIVE / LIVING WILL Power of Brake [address] [employer] 09/04/2017 POWER OF A TTORNEY Advance Directives and Living Will 09/04/2014 ADVANCE DIRECTIVE / LIVING WILL Latest Code Status on File Code Status Date Activated Date Inactivated Comments Full Code 01/28/2021 11:56 PM 02/02/2021 6:54 PM Th is order reflects the patients wishes and were consensually agreed upon. Healthcare Agents on File Name Relationship Healthcare Agent Relationshi p Communication Laverne Perdomo Adult Child Health Care Power of Attorn ey Care Teams Duty Officer Relationship Specialty Start Date End Date Crystal Mcguire CRNP [address] [place] [address] [place] [address] PCP - General Nurse Practitioner 09/28/21 documented as of this encounter
--- NOTE | 2023-01-15 10:29 | Emergency Department Note ---
Impression & Plan Pulmonary edema, Cough, Fall, Acute shoulder pain, Acute UTI ED Provider Note NAME: TIM GATES AGE: 87 SEX: F : 1935 ARRIVES VIA: Ambulance INFORMANT: Patient, ED PROVIDER(S): Gautam Jimenez MD CHIEF COMPLAINT: Fall, shoulder pain MEDICAL DECISION MAKING: Patient presents due to concern for fall and associated shoulder and back pain. The patient is presenting from home as she lives by herself. IV was established but was obtained. Patient was ordered breathing treatment bio fire chest x-ray right shoulder x-ray and then CT head cervical spine and thoracic spine. Patient's blood work shows a white count of 10 with a hemoglobin 11.9. Patient's platelet count is unremarkable. Kidney function unremarkable but with prerenal azotemia. Glucose 264 but not DKA. Urinalysis does show protein and blood. Possible signs of infection with bacteria leuks and whites. Negative for nitrates. Bio fire negative patient's shoulder humerus and chest x-ray do not show any acute findings. Negative head and cervical spine CT. Patient may have a nondisplaced posterior right rib fracture and there is some pulmonary edema noted with right pleural effusion on thoracic spine CT. I did compare these findings the patient the patient's family at bedside. There is concerned that the patient is unable to go home. The patient was ordered IV Lasix as well as a DuoNeb treatment and a cough suppressant. I did speak the on-call hospital service Dr. Ruiz and the patient was admitted to the medicine service. I did discuss the patient's allergy with pharmacy and the patient is tolerated Rocephin. Patient was ordered a 2 g dose Discussion w/ other healthcare providers: Dr. Ruiz inpatient medicine service Prior /Outside records reviewed: I reviewed a cardiology visit from December 09, 2022 with Mike Alfonso. Patient does have a known history of hypertension hyperlipidemia paroxysmal A-fib ischemic cardiomyopathy mitral valve disease status post valve repair chronic combined CHF CAD status post CABG x 2 and pacemaker. Patient did present at that time for preoperative cardiac evaluation prior to having surgery on her right eye for subluxed intraocular lens Differential diagnosis: Fracture, dislocation, contusion, strain, sprain, ICH, hemothorax, intra- abdominal injury, anemia among other causes were considered. Diagnostics, as interpreted by me: ECG: A sensed V paced rhythm, rate of 91, wide QRS, left bundle branch block pattern. Left axis deviation. Cardiac monitoring: An order was placed for continuous cardiac monitoring. The monitor shows a rate of 88 with pace rhythm. Patient was placed on pulse oximetry Medical decision rules: None Imaging studies: I informally interpreted the patient's CT head which does not show obvious ICH with formal report to follow. I informally interpreted the patient's chest x-ray which does not show obvious pneumothorax with formal report to follow HPI: Patient presents from home. Patient states that she fell out of bed falling to her right side. Patient does complain of some right shoulder pain. Patient also has some upper back pain. Patient does not believe that she struck her head. Additional nursing report relates that EMS reported that she had initial shoulder deformity but this did seem to improve and unsure as to whether or not she had a dislocation which relocated. Patient denies any chest pains or shortness of breath no nausea vomiting. The patient reportedly does live by herself. Additional history is obtained from the daughter who did present she is the POA. She states that she has lived [place] for some time but that they have been considering having her placed in a home as they do not believe that she is safe at home at this time. PAST MEDICAL HISTORY: See Below PAST SURGICAL HISTORY: See Below SOCIAL HISTORY: See Below HOME MEDICATIONS: See Below ALLERGIES: See Below VITALS: See Below PHYSICAL EXAMINATION: GENERAL: NAD, non-toxic. EYE EXAM: Normal conjunctiva. PERRL, no anisocoria and EOM's grossly intact w/o pain. OROPHARYNX: Moist mucus membranes, grossly normal dentition. NECK: Supple, no nuchal rigidity, no adenopathy, non-tender. No signs of meningismus. FROM of the neck with good chin to chest and neck extension. No stridor. LUNGS: Clear to auscultation. Normal chest wall mechanics. Chest: No reproducible chest wall pain HEART: NSR, no MRG. ABDOMEN: Abdomen soft, non-tender, no masses, no rebound or guarding. BACK: No CVA TTP. Midline upper thoracic discomfort without overlying skin changes or step-offs, no lumbar midline TTP SKIN: No rashes and no bruising. UPPER EXTREMITIES: Right-sided shoulder pain without obvious deformity, good glass belt sander strength. No left upper extremity pain. LOWER EXTREMITIES: Grossly normal, no edema. No TTP or deformity. NEURO EXAM: A&O x3, cranial nerves II-XII grossly intact, normal speech, moves all 4 extremities. Past Med/Surg History Medical History Pacemaker battery depletion Chest pain Abdominal pain DVT prophylaxis Lower abdominal pain Anemia Cellulitis of right hand Abscess of hand, right Tenosynovitis of right hand Abscess of right hand Cellulitis of right hand Acute UTI (urinary tract infection) Fracture of pubic ramus Anticoagulant long-term use Allergy to multiple antibiotics Cardiac pacemaker for complete heart block, generator changed out 02/25/22 Vitamin D deficiency Transient ischemic attack (TIA) Solitary pulmonary nodule Secondary hyperparathyroidism of renal origin History of chest pain Gait instability Extremity atherosclerosis with intermittent claudication Diabetes mellitus Depression Chronic renal disease, stage III Cerebellar infarct Surgical History Hx of carpal tunnel repair History of nasal surgery Family History Other Family history non-contributory Social History Smoking Status: Never smoker Second Hand Exposure: No; Do You Dip or Chew Tobacco: No; Hx Alcohol Use: No Hx Substance Use: No Preferred Language: Khmer Communication Ability: Effective Visual Impairment: No Limitations Agricultural Researcher Required: No Beliefs That Will Affect Care: None marital status: / Current Living Situation: Alone How many Children do You have: 2 Feels Safe at Home: Yes Childhood Exposure to Second-Hand Smoke: Yes Diet: regular caffeine: Yes Dental Care, Regularly: No Physical Activity Frequency: 1-2 Times per Week Seatbelt Use: always Sunscreen Use: No Assistive Devices: Glasses, Hearing Aid - Bilateral and Walker Allergies Allergies Allergy/AdvReac Type Severity Reaction Status Date / Time butalbital Allergy Severe SHORTNESS Verified 01/15/23 12:16 OF BREATH Cephalosporins Allergy Severe TONGUE Verified 01/15/23 12:16 SWELLING WITH KEFLEX- tolerating keflex 03/16/20 tamsulosin Allergy Severe SHORTNESS Verified 01/15/23 12:16 OF BREATH nitrofurantoin Allergy Unknown Unknown Verified 01/15/23 12:16 [From Macrobid] levetiracetam AdvReac Intermediate RASH Verified 01/15/23 12:16 morphine AdvReac Intermediate hallucinati Verified 01/15/23 12:16 ons Sulfa (Sulfonamide AdvReac Unknown "SULFA Verified 01/15/23 12:16 Antibiotics) DRUGS" - UNKNOWN Home Meds Home Medications Medication Instructions Recorded Confirmed calcium carbonate 500 mg-vitamin 1 tab PO QAM #0 tabs 04/09/20 01/15/23 D3 5 mcg (200 unit) tablet (Os-Emile 500 + D3) methenamine hippurate 1 gram tablet 1 g PO BID 08/25/20 01/15/23 ascorbic acid (vitamin C) 500 mg 500 mg PO QAM 11/19/20 01/15/23 tablet peg 400-propylene glycol 0.4 %-0.3 1 drp ophthalmic (eye) Q8H PRN Dry 04/01/21 01/15/23 % eye gel drops (Systane Gel) Eyes acetaminophen 500 mg tablet 650 mg PO Q6H PRN Pain 06/01/22 01/15/23 (Tylenol Extra Strength) carbamide peroxide 6.5 % ear drops 5 drp otic (ear) Q12H PRN NEEDED 06/01/22 01/15/23 (Debrox) aspirin 81 mg tablet,delayed 81 mg PO DAILY 09/27/22 01/15/23 release (Adult Low Dose Aspirin) furosemide 20 mg tablet 20 mg PO QAM 01/15/23 01/15/23 gabapentin 100 mg capsule See Rx Instructions .Route .COMPLEX 01/15/23 01/15/23 pbbvlnhh-raqokmsak-ktxczqzi 3.5 1 drp OPR QID 01/15/23 01/15/23 mg/mL-10,000 unit/mL-0.1% eye drops Previous Rx's Medication Instructions Recorded ipratropium 0.5 mg-albuterol 3 mg 3 ml inhalation Q4H PRN Wheezing 01/28/21 (2.5 mg base)/3 mL nebulization #180 mL soln ferrous sulfate 325 mg (65 mg 325 mg PO QAM #90 tabs 05/14/21 iron) tablet lovastatin 40 mg tablet 40 mg PO PM #90 tabs 04/18/22 valsartan 40 mg tablet 20 mg (1/2 x 40 mg) PO QAM #45 tabs 04/25/22 calcitriol 0.25 mcg capsule 0.25 mcg PO 3XWK #36 caps 07/01/22 carvedilol 12.5 mg tablet 12.5 mg PO BID #180 tabs 07/07/22 sertraline 50 mg tablet 50 mg PO QAM #90 tabs 07/18/22 lancets 33 gauge (ScanaduTouch Delica #100 ea 11/01/22 Plus Lancet) lancing device with lancets kit #1 ea 11/01/22 (Pinpoint MDuch Delica Plus Lancing Device kit) pantoprazole 40 mg tablet,delayed 40 mg PO BID #180 tabs 11/04/22 release blood sugar diagnostic (OneTouch #100 ea 12/19/22 Verio test strips) Results & Data (ED) Vital Signs Vital Signs - 24 hr 01/15/23 10:31 01/15/23 12:03 01/15/23 12:14 Temperature 36.5 C Temperature Source Oral Pulse Rate 95 H 86 92 H Pulse Rhythm Regular Pulse Strength Normal Respiratory Rate 20 19 23 Respiratory Effort / Characteristics Non-Labored Spontaneous Respiratory Depth Normal Respiratory Pattern Regular Blood Pressure 158/112 H Blood Pressure Mean 127 Pulse Oximetry 91 Oxygen Delivery Method Room Air Sepsis Recent Fever Within 48 Hours No Sepsis New/Unexplained Change in Mental Status No Sepsis Action Taken by Nursing No Action Required 01/15/23 12:14 01/15/23 12:30 01/15/23 13:00 Temperature Temperature Source Pulse Rate 84 89 Pulse Rhythm Pulse Strength Respiratory Rate 17 20 Respiratory Effort / Characteristics Respiratory Depth Respiratory Pattern Blood Pressure 158/96 H Blood Pressure Mean 127 Pulse Oximetry Oxygen Delivery Method Sepsis Recent Fever Within 48 Hours Sepsis New/Unexplained Change in Mental Status Sepsis Action Taken by Nursing 01/15/23 13:30 01/15/23 14:00 01/15/23 14:30 Temperature Temperature Source Pulse Rate 87 92 H 87 Pulse Rhythm Pulse Strength Respiratory Rate 20 22 24 Respiratory Effort / Characteristics Respiratory Depth Respiratory Pattern Blood Pressure Blood Pressure Mean Pulse Oximetry Oxygen Delivery Method Sepsis Recent Fever Within 48 Hours Sepsis New/Unexplained Change in Mental Status Sepsis Action Taken by Nursing 01/15/23 15:00 01/15/23 15:18 01/15/23 15:18 Temperature Temperature Source Pulse Rate 86 85 Pulse Rhythm Pulse Strength Respiratory Rate 18 20 Respiratory Effort / Characteristics Respiratory Depth Respiratory Pattern Blood Pressure 157/70 H Blood Pressure Mean 122 Pulse Oximetry Oxygen Delivery Method Sepsis Recent Fever Within 48 Hours Sepsis New/Unexplained Change in Mental Status Sepsis Action Taken by Custodial Medications Current Medication List: was personally reviewed by me Laboratory Data Attestation: I reviewed the patient's lab results. 01/15/23 11:20 01/15/23 11:20 Lab Results 01/15/23 01/15/23 01/15/23 Range/Units 11:10 11:20 15:00 WBC 10.90 H (4.8-10.8) K/ul RBC 4.06 L (4.20-5.40) M/uL Hgb 11.9 L (12.0-16.0) g/dl Hct 36.8 L (37.0-47.0) % MCV 90.6 (80.0-100.0) fL MCH 29.3 (25.0-34.0) pg MCHC 32.3 (32.0-36.0) g/dL RDW Std Deviation 46.9 H (36.4-46.3) fL RDW Coeff of Carlos 14.1 (11.5-14.5) % Plt Count 203 (130-400) K/uL MPV 11.5 (9.4-12.4) fL Immature Gran % (Auto) 0.6 % Neut % (Auto) 81.2 % Lymph % (Auto) 12.7 % Tripp % (Auto) 5.1 % Eos % (Auto) 0.0 % Baso % (Auto) 0.4 % Neut # (Auto) 8.85 H (1.40-6.50) K/uL Lymph # (Auto) 1.38 (1.20-3.40) K/uL Tripp # (Auto) 0.56 (0.11-0.59) K/uL Eos # (Auto) 0.00 (0.00-0.50) K/uL Baso # (Auto) 0.04 (0.00-0.20) K/uL Immature Gran # (Auto) 0.07 (0.01-0.20) K/uL Sodium 140 (136-145) mmol/L Potassium 3.7 (3.5-5.1) mmol/L Chloride 102 (98-107) mmol/L Carbon Dioxide 28 (21-32) mmol/L Anion Gap 10 (3-11) BUN 23 (6-23) mg/dl Creatinine 0.85 (0.6-1.2) mg/dl Est Cr Clr Drug Dosing 36.0 ml/min Est GFR ( Amer) 70.4 ml/min Est GFR (Non-Af Amer) 60.7 ml/min BUN/Creatinine Ratio 27.1 H (10-20) Glucose 264 H (70-99(Fasting)) mg/dl Calcium 9.4 (8.6-10.3) mg/dl Magnesium 1.7 (1.7-2.4) mg/dl Total Bilirubin 0.9 (0.2-1.0) mg/dl AST 12 L (13-39) U/L ALT 9 (7-52) U/L Alkaline Phosphatase 75 (34-104) U/L Total Creatine Kinase 93 (26-192) U/L Total Protein 7.5 (6.0-8.3) gm/dl Albumin 4.2 (3.4-5.0) gm/dl Globulin 3.3 (2.5-4.0) gm/dl Albumin/Globulin Ratio 1.3 (0.9-2) TSH 1.554 (0.300-4.500) uIu/ml Urine Color Yellow Urine Appearance Cloudy A (Clear) Urine pH 6.0 (4.5-7.5) Ur Specific [place] 1.019 (1.000-1.030) Urine Protein 3+ H (Negative) Urine Glucose (UA) Negative (Negative) Urine Ketones Negative (Negative) Urine Blood 1+ H (Negative) Urine Nitrite Negative (Negative) Urine Bilirubin Negative (Negative) Urine Urobilinogen Negative (Negative) Ur Leukocyte Esterase 1+ H (Negative) Urine WBC (Auto) >30 H (0-5) /hpf Urine RBC (Auto) 0-4 (0-4) /hpf U Hyaline Cast (Auto) 10-30 H (0-5) /lpf U Epithel Cells (Auto) >30 H (0-5) /lpf Urine Bacteria (Auto) 4+ H (Negative) Adenovirus (PCR) Not Detected (NotDetected) B. pertussis DNA (PCR) Not Detected (NotDetected) B.parapertussis DNA PCR Not Detected (NotDetected) C. pneumoniae DNA (PCR) Not Detected (NotDetected) Coronavirus OC43 (PCR) Not Detected (NotDetected) Coronavirus HKU1 (PCR) Not Detected (NotDetected) Coronavirus 229E (PCR) Not Detected (NotDetected) SARS-CoV-2 (PCR) Not Detected (NotDetected) Coronavirus NL63 (PCR) Not Detected (NotDetected) Human Metapneumovir PCR Not Detected (NotDetected) Influenza Type A (PCR) Not Detected (NotDetected) Influenza Type B (PCR) Not Detected (NotDetected) M. pneumoniae (PCR) Not Detected (NotDetected) Parainfluenza 1 (PCR) Not Detected (NotDetected) Parainfluenza 2 (PCR) Not Detected (NotDetected) Parainfluenza 3 (PCR) Not Detected (NotDetected) Parainfluenza 4 (PCR) Not Detected (NotDetected) RSV (PCR) Not Detected (NotDetected) Entero/Rhino (PCR) Not Detected (NotDetected) Administered Medications Discontinued Medications Acetaminophen (Acetaminophen 500 Mg Tab) 1,000 mg PO NOW STA Stop: 01/15/23 14:20 Last Admin: 01/15/23 14:56 Dose: 1,000 mg Documented By: CPB Albuterol (Albut/Ipratrop 3mg/0.5mg Neb 3 Ml Vial) 3 ml NEB NOW STA; Protocol Stop: 01/15/23 10:46 Last Admin: 01/15/23 11:08 Dose: 3 ml Documented By: CPB Albuterol (Albut/Ipratrop 3mg/0.5mg Neb 3 Ml Vial) 3 ml NEB NOW STA; Protocol Stop: 01/15/23 14:20 Last Admin: 01/15/23 14:55 Dose: 3 ml Documented By: CPB Benzonatate (Benzonatate 100 Mg Capsule) 100 mg PO NOW ONE Stop: 01/15/23 14:20 Last Admin: 01/15/23 14:55 Dose: 100 mg Documented By: CPB Carvedilol (Carvedilol 12.5 Mg Tab) 12.5 mg PO NOW ONE Stop: 01/15/23 14:27 Last Admin: 01/15/23 15:17 Dose: 12.5 mg Documented By: CPB Furosemide (Furosemide 40 Mg/4 Ml Vial) 40 mg IV ONE ONE Stop: 01/15/23 13:13 Last Admin: 01/15/23 13:33 Dose: 40 mg Documented By: CPB Sertraline HCl (Sertraline Hcl 50 Mg Tablet) 50 mg PO NOW ONE Stop: 01/15/23 14:27 Last Admin: 01/15/23 15:18 Dose: 50 mg Documented By: CPB Imaging Data Radiologist's Impression: Cervical Spine CT 01/15/23 10:45 CT OF THE CERVICAL SPINE WITHOUT CONTRAST CLINICAL HISTORY: fall, trauma COMPARISON STUDY: CTA of the neck September 26, 2022. Cervical spine CT April 01, 2021. TECHNIQUE: Helical axial images of the cervical spine were obtained without IV contrast. Sagittal and coronal reconstructions were viewed. Automated exposure control was utilized for the study. A dose lowering technique was utilized adhering to the principles of ALARA. FINDINGS: Alignment of the cervical spine is anatomic. Vertebral body heights are maintained. No acute cervical spine fracture or subluxation is present. There is no prevertebral edema. Facet joints are intact. Severe multilevel facet arthrosis is again noted. There is moderate multilevel disc space narrowing and osteophytosis within the cervical spine. Mild interlobular septal thickening within the visualized lung apices is incidentally noted. IMPRESSION: No acute cervical spine fracture or subluxation. ACT 112: Negative or not required by law. Electronically signed by: Sonido Issa M.D. 01/15/2023 12:[address] 01/15/23 10:45 CT OF THE HEAD WITHOUT CONTRAST CLINICAL HISTORY: fall, trauma COMPARISON STUDY: Head CT and CTA of the head September 26, 2022. TECHNIQUE: Helical axial images of the head were obtained without IV contrast. Automated exposure control was utilized for the study. A dose lowering technique was utilized adhering to the principles of ALARA. FINDINGS: No acute intracranial hemorrhage, midline shift or mass effect is present. Ventricular dilatation is unchanged. Basal cisterns are patent. There are no extra-axial collections. White matter hypodensities are unchanged. 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 There are no findings to suggest acute dural sinus thrombosis or acute territorial infarct. There are no acute calvarial fracture. There is mild sinus mucosal thickening. A right parietal calvarial defect is chronic. IMPRESSION: 1. No acute intracranial findings. No change in appearance of the brain. 2. No acute calvarial fractures. ACT 112: Negative or not required by law. Electronically signed by: Sonido Issa M.D. 01/15/2023 12:21 PM Humerus X-Ray 01/15/23 10:45 XR humerus RT 2V CLINICAL HISTORY: fall, trauma COMPARISON: Right shoulder radiographs September 04, 2010. FINDINGS: Alignment of the right shoulder and right elbow is anatomic. There is no acute fracture within the right humerus. No osseous lesions are identified within the right humerus. IMPRESSION: No fractures within the right humerus. ACT 112: Negative or not required by law. Electronically signed by: Sonido Issa M.D. 01/15/2023 11:22 AM Shoulder X-Ray 01/15/23 10:45 XR shoulder RT min 2V routine CLINICAL HISTORY: fall, trauma COMPARISON: Right shoulder radiographs September 04, 2010. FINDINGS: Widening of the right AC joint interval is unchanged since recent chest radiographs. This is not acute. There is no acute fracture within the right shoulder. There are no osseous lesions. Mild glenoid humeral joint osteophytosis is present. There is minimal calcific tendinitis rotator cuff. IMPRESSION: No acute fracture or dislocation within the right shoulder. ACT 112: Negative or not required by law. Electronically signed by: Sonido Issa M.D. 01/15/2023 11:[address] 01/15/23 10:45 CT OF THE THORACIC SPINE CLINICAL HISTORY: fall, trauma COMPARISON STUDY: Thoracic spine CT June 15, 2019. Thoracic spine radiographs September 29, 2022. Chest CT September 01, 2022. TECHNIQUE: Helical axial images of the thoracic spine were obtained. Sagittal and coronal reconstructions were viewed. Automated exposure control was utilized for the study. A dose lowering technique was utilized adhering to the principles of ALARA. FINDINGS: Alignment of the thoracic spine is anatomic. There is extensive anterior osteophytosis of the thoracic spine. Old moderate L1 compression fracture is unchanged from CT of June 15, 2019. There is no acute thoracic spine fracture. There are no osseous lesions. Paravertebral soft tissues are unremarkable. Nondisplaced posterior right fifth rib fracture is new since chest CT of September 01, 2022. There is mild interlobular septal thickening within visualized portions of the lungs. Trace right pleural effusion is present. Pacer leads are partially imaged. IMPRESSION: 1. No acute thoracic spine fracture or subluxation. 2. Nondisplaced posterior right fifth rib fracture is age indeterminate but new since CT of September 01, 2022. 3. Mild pulmonary edema. Trace right pleural effusion. ACT 112: Negative or not required by law. Electronically signed by: Sonido Issa M.D. 01/15/2023 12:41 PM Chest X-Ray 01/15/23 10:46 XR chest 1V portable CLINICAL HISTORY: Cough. Fall. COMPARISON STUDY: Chest radiograph June 01, 2022. Chest CT September 01, 2022. FINDINGS: Median sternotomy wires, dual lead left subclavian pacer and prosthetic mitral valve are noted. Cardiomediastinal silhouette is stable. There is no pneumothorax. No definite pleural effusion is present. No airspace opacities are identified. There are old left rib fractures. No evidence for overt pulmonary edema. IMPRESSION: No acute cardiopulmonary findings. No significant change in appearance of the chest. ACT 112: Negative or not required by law. Electronically signed by: Sonido Issa M.D. 01/15/2023 11:17 AM Discharge Plan Visit Data Chief Complaint: Fall ED Provider: Gautam Jimenez Discharge Problem: Pulmonary edema, Cough, Fall, Acute shoulder pain, Acute UTI Forms Stand Alone Forms: [facility] Prescriptions Prescriptions: No Action calcium carbonate-vitamin D3 [Os-Emile 500 + D3] 500 mg(1,250mg) -200 unit tablet 1 tab PO QAM Qty: 0 ipratropium-albuterol 0.5 mg-3 mg(2.5 mg base)/3 mL solution for nebulization 3 ml INHALATION Q4H PRN (Reason: Wheezing) Qty: 180 8RF ferrous sulfate 325 mg (65 mg iron) tablet 325 mg PO QAM Qty: 90 3RF lovastatin 40 mg tablet 40 mg PO PM Qty: 90 3RF valsartan 40 mg tablet 20 mg PO QAM Qty: 45 3RF Hold Instructions: BP low calcitriol 0.25 mcg capsule 0.25 mcg PO 3XWK Qty: 36 5RF Rx Instructions: 0.25 mcg PO every Monday, Monday, and Monday in the evening carvedilol 12.5 mg tablet 12.5 mg PO BID Qty: 180 3RF Rx Instructions: must administer with a meal/food sertraline 50 mg tablet 50 mg PO QAM Qty: 90 3RF aspirin [Adult Low Dose Aspirin] 81 mg tablet,delayed release (DR/EC) 81 mg PO DAILY (DME) lancets [OneTouch Delica Plus Lancet] 33 gauge misc See Rx Instructions .Route Qty: 100 3RF Rx Instructions: Test blood sugar once daily DX:E11.9 (DME) lancing device with lancets [OneTouch Delica Plus Lanc Dev] Kit See Rx Instructions .Route Qty: 1 0RF Rx Instructions: Test blood sugar once daily DX:E11.9 pantoprazole 40 mg tablet,delayed release (DR/EC) 40 mg PO BID Qty: 180 3RF (DME) OneTouch Verio test strips Strip See Rx Instructions .Route Qty: 100 3RF Rx Instructions: TEST ONCE DAILY E11.9 methenamine hippurate 1 gram tablet 1 g PO BID ascorbic acid (vitamin C) 500 mg tablet 500 mg PO QAM acetaminophen [Tylenol Extra Strength] 500 mg tablet 650 mg PO Q6H PRN (Reason: Pain) Debrox 6.5 % drops 5 drp otic (ear) Q12H PRN (Reason: NEEDED) furosemide 20 mg tablet 20 mg PO QAM Rx Instructions: Allowed to take 40mg for 3 days if swelling continues gabapentin 100 mg capsule See Rx Instructions .ROUTE .COMPLEX Rx Instructions: Take 100mg by mouth in the morning and 200mg by mouth at bedtime neomycin-polymyxin B-dexameth 3.5mg/mL-10,000 unit/mL-0.1 % drops,suspension 1 drp OPR QID Systane Gel 0.4-0.3 % Drops,Gel 1 drp ophthalmic (eye) Q8H PRN (Reason: Dry Eyes) Rx Instructions: [id number] Referrals Referrals: Crystal Mcguire CRNP [Primary Care Provider] - Discharge Problem: Pulmonary edema Qualifiers: Chronicity: acute Qualified Code(s): J81.0 - Acute pulmonary edema Cough Qualifiers: Cough type: acute Qualified Code(s): R05.1 - Acute cough Fall Qualifiers: Encounter type: initial encounter Qualified Code(s): W19.XXXA - Unspecified fall, initial encounter Acute shoulder pain Qualifiers: Laterality: right Qualified Code(s): M25.511 - Pain in right shoulder
[2023-01-15] MEDS ORDERED: ALBUT/IPRATROP 3MG/0.5MG NEB 3 ML VIAL NEB STA ×2 (10:45→14:19)
--- NOTE | 2023-01-15 11:18 | XRay Report ---
XR chest 1V portable CLINICAL HISTORY: Cough. Fall. COMPARISON STUDY: Chest radiograph June 01, 2022. Chest CT September 01, 2022. FINDINGS: Median sternotomy wires, dual lead left subclavian pacer and prosthetic mitral valve are no kasandra. Cardiomediastinal silhouette is stable. There is no pneumothorax. No definite pleural effusion i s present. No airspace opacities are identified. There are old left rib fractures. No evidence for ov ert pulmonary edema. IMPRESSION: No acute cardiopulmonary findings. No significant change in appearance of the chest. ACT 112: Negative or not required by law. Electronically signed by: Sonido Issa M.D. 01/15/2023 11:17 AM
--- NOTE | 2023-01-15 11:23 | XRay Report ---
XR shoulder RT min 2V routine CLINICAL HISTORY: fall, trauma COMPARISON: Right shoulder radiographs September 04, 2010. FINDINGS: Widening of the right AC joint interval is unchanged since recent chest radiographs. This is not acute. There is no acute fracture within the right shoulder. There are no osseous lesions. Mil d glenoid humeral joint osteophytosis is present. There is minimal calcific tendinitis rotator cuff. IMPRESSION: No acute fracture or dislocation within the right shoulder. ACT 112: Negative or not required by law. Electronically signed by: Sonido Issa M.D. 01/15/2023 11:22 AM
--- NOTE | 2023-01-15 11:24 | XRay Report ---
XR humerus RT 2V CLINICAL HISTORY: fall, trauma COMPARISON: Right shoulder radiographs September 04, 2010. FINDINGS: Alignment of the right shoulder and right elbow is anatomic. There is no acute fracture wi thin the right humerus. No osseous lesions are identified within the right humerus. IMPRESSION: No fractures within the right humerus. ACT 112: Negative or not required by law. Electronically signed by: Sonido Issa M.D. 01/15/2023 11:22 AM
[2023-01-15 12:18] LABS: Basophils # (auto) 0.04 K/uL (0.00-0.20); Basophils % (auto) 0.4 %; Hematocrit (blood only) 36.8 % (37.0-47.0); Hemoglobin 11.9 g/dl (12.0-16.0); Immature Granulocytes # (auto) 0.07 K/uL (0.01-0.20); Immature Granulocytes % (auto) 0.6 %; Lymphocytes # (auto) 1.38 K/uL (1.20-3.40); Lymphocytes % (auto) 12.7 %; Mean Corpuscular Hemoglobin 29.3 pg (25.0-34.0); Mean Corpuscular Hgb Conc 32.3 g/dL (32.0-36.0); Mean Corpuscular Volume 90.6 fL (80.0-100.0); Mean Platelet Volume 11.5 fL (9.4-12.4); Monocytes # (auto) 0.56 K/uL (0.11-0.59); Monocytes % (auto) 5.1 %; Neutrophils # (auto) 8.85 K/uL (1.40-6.50); Neutrophils % (auto) 81.2 %; Platelet Count 203 K/uL (130-400); RDW Coefficient of Variation 14.1 % (11.5-14.5); RDW Standard Deviation 46.9 fL (36.4-46.3); Red Blood Count 4.06 M/uL (4.20-5.40)
--- NOTE | 2023-01-15 12:23 | CT Scan Report ---
CT OF THE HEAD WITHOUT CONTRAST CLINICAL HISTORY: fall, trauma COMPARISON STUDY: Head CT and CTA of the head September 26, 2022. TECHNIQUE: Helical axial images of the head were obtained without IV contrast. Automated exposure con trol was utilized for the study. A dose lowering technique was utilized adhering to the principles o f ALARA. FINDINGS: No acute intracranial hemorrhage, midline shift or mass effect is present. Ventricular dila tation is unchanged. Basal cisterns are patent. There are no extra-axial collections. White matter hy podensities are unchanged. Encephalomalacia suggestive of old infarct within left cerebellar hemisphe re is unchanged. There are no findings to suggest acute dural sinus thrombosis or acute territorial i nfarct. There are no acute calvarial fracture. There is mild sinus mucosal thickening. A right pariet al calvarial defect is chronic. IMPRESSION: 1. No acute intracranial findings. No change in appearance of the brain. 2. No acute calvarial fractures. ACT 112: Negative or not required by law. Electronically signed by: Sonido Issa M.D. 01/15/2023 12:21 PM
[2023-01-15 12:30] LABS: Albumin Globulin Ratio 1.3 (0.9-2); Albumin Level 4.2 gm/dl (3.4-5.0); BUN Creatinine Ratio 27.1 (10-20); Bilirubin,Total 0.9 mg/dl (0.2-1.0); Calcium 9.4 mg/dl (8.6-10.3); Est GFR (African American) 70.4 ml/min; Est GFR (Non-African American) 60.7 ml/min; Globulin 3.3 gm/dl (2.5-4.0); Magnesium 1.7 mg/dl (1.7-2.4); Potassium 3.7 mmol/L (3.5-5.1); Total Protein 7.5 gm/dl (6.0-8.3)
--- NOTE | 2023-01-15 12:36 | CT Scan Report ---
CT OF THE CERVICAL SPINE WITHOUT CONTRAST CLINICAL HISTORY: fall, trauma COMPARISON STUDY: CTA of the neck September 26, 2022. Cervical spine CT April 01, 2021. TECHNIQUE: Helical axial images of the cervical spine were obtained without IV contrast. Sagittal a nd coronal reconstructions were viewed. Automated exposure control was utilized for the study. A do se lowering technique was utilized adhering to the principles of ALARA. FINDINGS: Alignment of the cervical spine is anatomic. Vertebral body heights are maintained. No acut e cervical spine fracture or subluxation is present. There is no prevertebral edema. Facet joints are intact. Severe multilevel facet arthrosis is again noted. There is moderate multilevel disc space n arrowing and osteophytosis within the cervical spine. Mild interlobular septal thickening within the visualized lung apices is incidentally noted. IMPRESSION: No acute cervical spine fracture or subluxation. ACT 112: Negative or not required by law. Electronically signed by: Sonido Issa M.D. 01/15/2023 12:34 PM
[2023-01-15 12:43] LABS: Adenovirus PCR Not Detected (NotDetected); Bordetella parapertussis PCR Not Detected (NotDetected); Bordetella pertussis PCR Not Detected (NotDetected); Chlamydia pneumoniae PCR Not Detected (NotDetected); Coronavirus 229E PCR Not Detected (NotDetected); Coronavirus CoV-2 (COVID19)PCR Not Detected (NotDetected); Coronavirus HKU1 PCR Not Detected (NotDetected); Coronavirus NL63 PCR Not Detected (NotDetected); Coronavirus OC43PCR Not Detected (NotDetected); Human Metapneumovirus PCR Not Detected (NotDetected); Influenza A PCR Not Detected (NotDetected); Influenza B PCR Not Detected (NotDetected); Mycoplasma pneumoniae PCR Not Detected (NotDetected); Parainfluenza Virus 1 PCR Not Detected (NotDetected); Parainfluenza Virus 2 PCR Not Detected (NotDetected); Parainfluenza Virus 3 PCR Not Detected (NotDetected); Parainfluenza Virus 4 PCR Not Detected (NotDetected); Respiratory Syncytial VirusPCR Not Detected (NotDetected); Rhinovirus/Enterovirus PCR Not Detected (NotDetected)
--- NOTE | 2023-01-15 12:43 | CT Scan Report ---
CT OF THE THORACIC SPINE CLINICAL HISTORY: fall, trauma COMPARISON STUDY: Thoracic spine CT June 15, 2019. Thoracic spine radiographs September 29, 2022. Chest C T September 01, 2022. TECHNIQUE: Helical axial images of the thoracic spine were obtained. Sagittal and coronal reconstru ctions were viewed. Automated exposure control was utilized for the study. A dose lowering techniqu e was utilized adhering to the principles of ALARA. FINDINGS: Alignment of the thoracic spine is anatomic. There is extensive anterior osteophytosis of t he thoracic spine. Old moderate L1 compression fracture is unchanged from CT of June 15, 2019. There is no acute thoracic spine fracture. There are no osseous lesions. Paravertebral soft tissues are unrem arkable. Nondisplaced posterior right fifth rib fracture is new since chest CT of September 01, 2022. Ther e is mild interlobular septal thickening within visualized portions of the lungs. Trace right pleural effusion is present. Pacer leads are partially imaged. IMPRESSION: 1. No acute thoracic spine fracture or subluxation. 2. Nondisplaced posterior right fifth rib fracture is age indeterminate but new since CT of September 01, 2022. 3. Mild pulmonary edema. Trace right pleural effusion. ACT 112: Negative or not required by law. Electronically signed by: Sonido Issa M.D. 01/15/2023 12:41 PM
[2023-01-15 12:45] LABS: Thyroid Stimulating Hormone 1.554 uIu/ml (0.300-4.500)
[2023-01-15] MEDS ORDERED: FUROSEMIDE 40 MG/4 ML VIAL IV ONE (13:12)
--- NOTE | 2023-01-15 13:30 | Electrocardiogram Report ---
Test Reason : Blood Pressure : / mmHG Vent. Rate : 091 BPM Atrial Rate : 091 BPM P-R Int : 172 ms QRS Dur : 148 ms QT Int : 424 ms P-R-T Axes : 086 -78 093 degrees QTc Int : 521 ms Atrial-sensed ventricular-paced rhythm Abnormal ECG When compared with ECG of 26-SEP-2022 15:28, Vent. rate has increased BY 24 BPM Confirmed by Stephen Breaux ([id number]) on 01/15/2023 1:30:28 PM Referred By: Confirmed By:Stephen Breaux
--- NOTE | 2023-01-15 14:06 | History & Physical Report ---
Date of Service January 15, 2023 Assessment & Plan (1) Fall: Plan: Multiple falls in the last year per family at bedside and they do not feel she is safe for discharge home at this time Per patient she just rolled out of bed although unclear how reliable this history is Total CK normal Multiple reasons for falling with possible UTI, aortic stenosis, low normal blood pressure, generally unbalanced, iatrogenic with gabapentin use (2) Asymptomatic bacteriuria: Plan: Patient denies any symptoms. Thought to be at baseline except shoulder pain per family at bedside. Ceftriaxone given in the ER. Follow up urine culture. (3) Rotator cuff tear arthropathy of right shoulder: Plan: Suspected - pain over AC joint with lack of shoulder movement Acetaminophen 1g TID Tramadol 50mg q4h PRN for breakthrough pain Right arm sling (4) Cough: Plan: Unclear cause: Biofire negative No concern for aspirations per family - continue to monitor for this ?pulmonary edema (5) Chronic combined systolic (congestive) and diastolic (congestive) heart failure: Plan: Lasix 40mg IV given in the ER. Consider ongoing increased dosing given hypoxia however will prescribe her usual 20mg PO pending repeat assessment and Cr in AM as not clearly an acute exacerbation on admission. Mild pulmonary edema and trace right pleural effusion noted on CT thoracic spine (6) Hypertension: Plan: Continue carvedilol, given relatively low BP will hold valsartan (7) Aortic stenosis: Plan: Denies any dizziness, shortness of breath or chest pain prior to falling Continue to monitor for these symptoms (8) Diabetes mellitus: Plan: HbA1C 7.0 in November 2021, repeat with AM labs On no outpatient medications for this therefore will defer BSG ACHS and insulin coverage on admission Plan VTE Prophylaxis - heparin 5000 units SQ BID Diet - low Na, easy to chew Disposition - observation to med/surg Admission and Anticipated Discharge Date Admission Date: January 15, 2023 History of Present Illness Chief Complaint: Fall Primary Care Provider: DAVID Palmer Kassy Vasquez is an 87 year old female who presents to the ER from home via ALS due to rolling out of bed and landing on her right shoulder. She lives by herself and unclear how reliable of a history she gives as she cannot give me a good timeline of events. She thinks she hit her lifeline although her daughter was not called. She reportedly crawled downstairs to the phone. She reports hitting her head but no loss of consciousness. EMS noted a deformity of her right shoulder but may have gone back in on route to the hospital. This is on a background of multiple other falls this year. She denies any chest pain, shortness of breath or dizziness prior to falling and thinks she just loses her balance. She denies falling today and thinks she just accidently rolled out of bed and couldn't get herself back up. Her daughter is concerned about her current living situation even before this recent episode. She reports coughing illness for the last week. No fever, chills or shortness of breath. No worse on lying flat. No weight gain or leg swelling. Cough is non-productive. Not getting better or worse. She denies any urinary complaints and family feel her mental status is close to baseline however she does have a history of UTIs possibly increasing her risk of falls. She has a recent history of lens repair surgery to her right eye. Of note the patient is very hard of hearing but better with her left ear and raised voices. Allergies Allergy/AdvReac Type Severity Reaction Status Date / Time butalbital Allergy Severe SHORTNESS Verified 01/15/23 12:16 OF BREATH Cephalosporins Allergy Severe TONGUE Verified 01/15/23 12:16 SWELLING WITH KEFLEX- tolerating keflex 03/16/20 tamsulosin Allergy Severe SHORTNESS Verified 01/15/23 12:16 OF BREATH nitrofurantoin Allergy Unknown Unknown Verified 01/15/23 12:16 [From Macrobid] levetiracetam AdvReac Intermediate RASH Verified 01/15/23 12:16 morphine AdvReac Intermediate hallucinati Verified 01/15/23 12:16 ons Sulfa (Sulfonamide AdvReac Unknown "SULFA Verified 01/15/23 12:16 Antibiotics) DRUGS" - UNKNOWN Home Medications Medication Instructions Recorded Confirmed Type calcium carbonate 500 mg-vitamin 1 tab PO QAM #0 tabs 04/09/20 01/15/23 History D3 5 mcg (200 unit) tablet (Os-Emile 500 + D3) methenamine hippurate 1 gram tablet 1 g PO BID 08/25/20 01/15/23 History ascorbic acid (vitamin C) 500 mg 500 mg PO QAM 11/19/20 01/15/23 History tablet ipratropium 0.5 mg-albuterol 3 mg 3 ml inhalation Q4H PRN Wheezing 01/28/21 01/15/23 Rx (2.5 mg base)/3 mL nebulization #180 mL soln peg 400-propylene glycol 0.4 %-0.3 1 drp ophthalmic (eye) Q8H PRN Dry 04/01/21 01/15/23 History % eye gel drops (Systane Gel) Eyes ferrous sulfate 325 mg (65 mg 325 mg PO QAM #90 tabs 05/14/21 01/15/23 Rx iron) tablet lovastatin 40 mg tablet 40 mg PO PM #90 tabs 04/18/22 01/15/23 Rx valsartan 40 mg tablet 20 mg (1/2 x 40 mg) PO QAM #45 tabs 04/25/22 01/15/23 Rx acetaminophen 500 mg tablet 650 mg PO Q6H PRN Pain 06/01/22 01/15/23 History (Tylenol Extra Strength) carbamide peroxide 6.5 % ear drops 5 drp otic (ear) Q12H PRN NEEDED 06/01/22 01/15/23 History (Debrox) calcitriol 0.25 mcg capsule 0.25 mcg PO 3XWK #36 caps 07/01/22 01/15/23 Rx carvedilol 12.5 mg tablet 12.5 mg PO BID #180 tabs 07/07/22 01/15/23 Rx sertraline 50 mg tablet 50 mg PO QAM #90 tabs 07/18/22 01/15/23 Rx aspirin 81 mg tablet,delayed 81 mg PO DAILY 09/27/22 01/15/23 History release (Adult Low Dose Aspirin) lancets 33 gauge (WhateverTouch [place] #100 ea 11/01/22 Rx Plus Lancet) lancing device with lancets kit #1 ea 11/01/22 Rx (WhateverTouch Delica Plus Lancing Device kit) pantoprazole 40 mg tablet,delayed 40 mg PO BID #180 tabs 11/04/22 01/15/23 Rx release blood sugar diagnostic (OneTouch #100 ea 12/19/22 Rx Verio test strips) furosemide 20 mg tablet 20 mg PO QAM 01/15/23 01/15/23 History gabapentin 100 mg capsule See Rx Instructions .Route .COMPLEX 01/15/23 01/15/23 History [id number] 3.5 1 drp OPR QID 01/15/23 01/15/23 History mg/mL-10,000 unit/mL-0.1% eye drops Past Med/Surg History Medical History Pacemaker battery depletion Chest pain Abdominal pain DVT prophylaxis Lower abdominal pain Anemia Cellulitis of right hand Abscess of hand, right Tenosynovitis of right hand Abscess of right hand Cellulitis of right hand Acute UTI (urinary tract infection) Fracture of pubic ramus Anticoagulant long-term use Allergy to multiple antibiotics Cardiac pacemaker for complete heart block, generator changed out 02/25/22 Vitamin D deficiency Transient ischemic attack (TIA) Solitary pulmonary nodule Secondary hyperparathyroidism of renal origin History of chest pain Gait instability Extremity atherosclerosis with intermittent claudication Diabetes mellitus Depression Chronic renal disease, stage III Cerebellar infarct Surgical History Hx of carpal tunnel repair History of nasal surgery Family History Other Family history non-contributory Social History Smoking Status: Former smoker Second Hand Exposure: No; Do You Dip or Chew Tobacco: No; Hx Alcohol Use: No Hx Substance Use: No Preferred Language: Divehi Communication Ability: Effective Visual Impairment: No Limitations Fleet Coordinator Required: No Beliefs That Will Affect Care: None marital status: / Current Living Situation: Alone How many Children do You have: 2 Feels Safe at Home: Yes Safety Concerns: Feels Safe At This Time Childhood Exposure to Second-Hand Smoke: Yes Diet: regular caffeine: Yes Dental Care, Regularly: No Physical Activity Frequency: 1-2 Times per Week Seatbelt Use: always Sunscreen Use: No Assistive Devices: Glasses, Hearing Aid - Bilateral and Walker Review of Systems Review of Systems: All systems reviewed & are unremarkable except as noted in HPI & below Physical Exam Constitutional: well developed; + not well nourished and no acute distress Eyes: PERRL, conjunctivae normal, anicteric sclerae right pupil increased dilation ENMT: external ear and nose normal, oropharynx normal Neck: trachea midline, no thyromegaly Respiratory: normal respiratory effort, lungs clear to auscultation Cardiovascular: Rate/Rhythm: regular rate and regular rhythm Heart Sounds: + murmur (RUSB systolic) Extremities: normal capillary refill; no calf tenderness and no pedal edema Gastrointestinal (Abdomen): normal bowel sounds, soft, nontender, no h epatosplenomegaly Musculoskeletal: No hip pain on b/l hip internal/external rotation Significant pain on an Skin: no rashes, warm and dry Neurologic: awake; + does not move all extremities (unable to move right shoulder) Psychiatric: A+Ox3, euthymic affect Genitourinary: no CVA tenderness Results & Data Results & Data Vital Signs (Past 12 Hours) Vital Signs Temp Pulse Resp BP Pulse Ox O2 Del Method 01/15/23 12:14 158/96 H 01/15/23 12:14 92 H 23 01/15/23 12:03 86 19 01/15/23 10:31 36.5 C 95 H 20 158/112 H 91 Room Air Laboratory Results Abnormal lab results 01/15/23 Range/Units 11:20 WBC 10.90 H (4.8-10.8) K/ul RBC 4.06 L (4.20-5.40) M/uL Hgb 11.9 L (12.0-16.0) g/dl Hct 36.8 L (37.0-47.0) % RDW Std Deviation 46.9 H (36.4-46.3) fL Neut # (Auto) 8.85 H (1.40-6.50) K/uL BUN/Creatinine Ratio 27.1 H (10-20) Glucose 264 H (70-99(Fasting)) mg/dl AST 12 L (13-39) U/L Diagnostic Findings CT OF THE HEAD WITHOUT CONTRAST CLINICAL HISTORY: fall, trauma COMPARISON STUDY: Head CT and CTA of the head September 26, 2022. TECHNIQUE: Helical axial images of the head were obtained without IV contrast. Automated exposure control was utilized for the study. A dose lowering technique was utilized adhering to the principles of ALARA. FINDINGS: No acute intracranial hemorrhage, midline shift or mass effect is present. Ventricular dilatation is unchanged. Basal cisterns are patent. There are no extra-axial collections. White matter hypodensities are unchanged. 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 There are no findings to suggest acute dural sinus thrombosis or acute territorial infarct. There are no acute calvarial fracture. There is mild sinus mucosal thickening. A right parietal calvarial defect is chronic. IMPRESSION: 1. No acute intracranial findings. No change in appearance of the brain. 2. No acute calvarial fractures. CT OF THE CERVICAL SPINE WITHOUT CONTRAST CLINICAL HISTORY: fall, trauma COMPARISON STUDY: CTA of the neck September 26, 2022. Cervical spine CT April 01, 2021. TECHNIQUE: Helical axial images of the cervical spine were obtained without IV contrast. Sagittal and coronal reconstructions were viewed. Automated exposure control was utilized for the study. A dose lowering technique was utilized adhering to the principles of ALARA. FINDINGS: Alignment of the cervical spine is anatomic. Vertebral body heights are maintained. No acute cervical spine fracture or subluxation is present. There is no prevertebral edema. Facet joints are intact. Severe multilevel facet arthrosis is again noted. There is moderate multilevel disc space narrowing and osteophytosis within the cervical spine. Mild interlobular septal thickening within the visualized lung apices is incidentally noted. IMPRESSION: No acute cervical spine fracture or subluxation. CT OF THE THORACIC SPINE CLINICAL HISTORY: fall, trauma COMPARISON STUDY: Thoracic spine CT June 15, 2019. Thoracic spine radiographs September 29, 2022. Chest CT September 01, 2022. TECHNIQUE: Helical axial images of the thoracic spine were obtained. Sagittal and coronal reconstructions were viewed. Automated exposure control was utilized for the study. A dose lowering technique was utilized adhering to the principles of ALARA. FINDINGS: Alignment of the thoracic spine is anatomic. There is extensive anterior osteophytosis of the thoracic spine. Old moderate L1 compression fracture is unchanged from CT of June 15, 2019. There is no acute thoracic spine fracture. There are no osseous lesions. Paravertebral soft tissues are unremarkable. Nondisplaced posterior right fifth rib fracture is new since chest CT of September 01, 2022. There is mild interlobular septal thickening within visualized portions of the lungs. Trace right pleural effusion is present. Pacer leads are partially imaged. IMPRESSION: 1. No acute thoracic spine fracture or subluxation. 2. Nondisplaced posterior right fifth rib fracture is age indeterminate but new since CT of September 01, 2022. 3. Mild pulmonary edema. Trace right pleural effusion. XR chest 1V portable CLINICAL HISTORY: Cough. Fall. COMPARISON STUDY: Chest radiograph June 01, 2022. Chest CT September 01, 2022. FINDINGS: Median sternotomy wires, dual lead left subclavian pacer and prosthetic mitral valve are noted. Cardiomediastinal silhouette is stable. There is no pneumothorax. No definite pleural effusion is present. No airspace opac ities are identified. There are old left rib fractures. No evidence for overt pulmonary edema. IMPRESSION: No acute cardiopulmonary findings. No significant change in appearance of the chest. XR shoulder RT min 2V routine CLINICAL HISTORY: fall, trauma COMPARISON: Right shoulder radiographs September 04, 2010. FINDINGS: Widening of the right AC joint interval is unchanged since recent chest radiographs. This is not acute. There is no acute fracture within the right shoulder. There are no osseous lesions. Mild glenoid humeral joint osteophytosis is present. There is minimal calcific tendinitis rotator cuff. IMPRESSION: No acute fracture or dislocation within the right shoulder. Medications Administered ER Medications Given: Furosemide 40mg IV Duoneb 3ml NEB ECG Rate (beats per minute): 91 Rhythm: other (atrial-sensed ventricular-paced rhythm) Findings: no acute ischemic change Comparison ECG Date: from (September 26, 2022) Change: no significant change Code Status & VTE Plan Code Status DNR/DNI VTE Prophylaxis Plan VTE Prophylaxis will be ordered: Yes PG Care Time/CCT Total # of Minutes Spent Total Time Spent with Patient: Total time spent is greater than 50% in coordination of care (as documented) at patient's floor/unit and/or counseling patient: Coding Level of Care Code 78967 INT INP/OBS CARE 3/75MIN Diagnoses Fall W19.XXXA Encounter type: initial encounter Asymptomatic bacteriuria R82.71 Rotator cuff tear arthropathy of right shoulder M75.101; M12.811 Cough R05.1 Cough type: acute Chronic combined systolic (congestive) and diastolic (congestive) heart failure I50.42 Hypertension I10 Aortic stenosis I35.0 Type 2 diabetes mellitus without complication, with long-term current use of insulin E11.9; Z79.4 Diabetes mellitus complication status: without complication 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 insulin use: with mcfp use Diabetes mellitus type: type 2 (1) Fall Encounter type: initial encounter Qualified Code(s): W19.XXXA - Unspecified fall, initial encounter (4) Cough Cough type: acute Qualified Code(s): R05.1 - Acute cough (8) Diabetes mellitus Diabetes mellitus complication status: without complication 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 insulin use: with termite control service representative use Diabetes mellitus type: type 2 Qualified Code(s): E11.9 - Type 2 diabetes mellitus without complications; Z79.4 - termite control service representative (current) use of insulin
[2023-01-15] MEDS ORDERED: ACETAMINOPHEN 500 MG TAB PO STA (14:19)
[2023-01-15] MEDS ORDERED: BENZONATATE 100 MG CAPSULE PO ONE (14:19)
[2023-01-15] MEDS ORDERED: carvediloL 12.5 MG TAB PO ONE (14:26)
[2023-01-15] MEDS ORDERED: SERTRALINE HCL 50 MG TABLET PO ONE (14:26)
[2023-01-15 16:00] LABS: Appearance Urine Cloudy (Clear); Bacteria Urine Automated 4+ (Negative); Bilirubin Urine Negative (Negative); Blood Urine 1+ (Negative); Color Urine Yellow; Epithelial Cell Urine Auto >30 /lpf (0-5); Glucose Urine UA Negative (Negative); Ketones Urine Negative (Negative); Leukocyte Esterase Urine 1+ (Negative); Nitrite Urine Negative (Negative); Protein Urine 3+ (Negative); RBC Urine Automated 0-4 /hpf (0-4); Specific Gravity Urine 1.019 (1.000-1.030); Urobilinogen Urine Negative (Negative); WBC Urine Automated >30 /hpf (0-5)
[2023-01-15] MEDS ORDERED: cefTRIAXone SODIUM 2,000 MG in DEXTROSE 5 % MINI-B 50 ML IV ONE (16:30)
[2023-01-15] MEDS: ACETAMINOPHEN 500 MG TAB PO SCH (21:02)
[2023-01-15] MEDS: carvediloL 12.5 MG TAB PO SCH (21:03)
[2023-01-15] MEDS: METHENAMINE HIPPURATE 1 GM TAB PO SCH (21:03)
[2023-01-15] MEDS: LOVASTATIN 20 MG TAB PO SCH (21:03)
[2023-01-15] MEDS: PANTOprazole 40 MG TAB PO SCH (21:04)
[2023-01-15] MEDS: NEOMYCIN/POLYMYXIN/DEXAMETHA OP SOLN 5 ML BTL OPR SCH (21:04)
[2023-01-15] MEDS: GABAPENTIN 100 MG CAP PO SCH (21:17)
[2023-01-16] MEDS: ACETAMINOPHEN 500 MG TAB PO SCH ×3 (05:05→20:02)
[2023-01-16 06:44] LABS: Basophils # (auto) 0.03 K/uL (0.00-0.20); Basophils % (auto) 0.3 %; Eosinophils # (auto) 0.04 K/uL (0.00-0.50); Eosinophils % (auto) 0.4 %; Hemoglobin 11.6 g/dl (12.0-16.0); Immature Granulocytes # (auto) 0.06 K/uL (0.01-0.20); Immature Granulocytes % (auto) 0.6 %; Lymphocytes # (auto) 1.23 K/uL (1.20-3.40); Lymphocytes % (auto) 12.2 %; Mean Corpuscular Hemoglobin 29.3 pg (25.0-34.0); Mean Corpuscular Hgb Conc 32.2 g/dL (32.0-36.0); Mean Corpuscular Volume 90.9 fL (80.0-100.0); Mean Platelet Volume 11.2 fL (9.4-12.4); Monocytes # (auto) 0.65 K/uL (0.11-0.59); Monocytes % (auto) 6.5 %; Neutrophils # (auto) 8.06 K/uL (1.40-6.50); Platelet Count 173 K/uL (130-400); RDW Coefficient of Variation 14.1 % (11.5-14.5); RDW Standard Deviation 46.4 fL (36.4-46.3); Red Blood Count 3.96 M/uL (4.20-5.40); White Blood Count 10.07 K/ul (4.8-10.8)
[2023-01-16 07:09] LABS: BUN Creatinine Ratio 23.8 (10-20); Calcium 9.4 mg/dl (8.6-10.3); Creatinine Clr Calc Pharmacy 26.1 ml/min; Est GFR (African American) 54.5 ml/min; Potassium 3.5 mmol/L (3.5-5.1)
[2023-01-16] MEDS: HEPARIN SOD 5,000 UNIT/0.5 ML VIAL SQ SCH ×2 (08:13→20:04)
[2023-01-16 08:14] LABS: Estimated Average Glucose 157 mg/dl; Hemoglobin A1C 7.1 % (4.5-5.6)
[2023-01-16] MEDS: PANTOprazole 40 MG TAB PO SCH ×2 (08:14→20:03)
[2023-01-16] MEDS: GABAPENTIN 100 MG CAP PO SCH ×2 (08:14→20:04)
[2023-01-16] MEDS: METHENAMINE HIPPURATE 1 GM TAB PO SCH ×2 (08:14→20:05)
[2023-01-16] MEDS: carvediloL 12.5 MG TAB PO SCH ×3 (08:15→18:07)
[2023-01-16] MEDS: ASPIRIN 81 MG ECTAB PO SCH (08:15)
[2023-01-16] MEDS: SERTRALINE HCL 50 MG TABLET PO SCH (08:15)
[2023-01-16] MEDS: NEOMYCIN/POLYMYXIN/DEXAMETHA OP SOLN 5 ML BTL OPR SCH ×4 (08:16→20:05)
--- NOTE | 2023-01-16 08:43 | Hospitalist Progress Note ---
Date of Service January 16, 2023 Assessment & Plan (1) Fall: Plan: Multiple falls in the last year per family at bedside and they do not feel she is safe for discharge home at this time Per patient she just rolled out of bed although unclear how reliable this history is Total CK normal Multiple reasons for falling with possible UTI, aortic stenosis, low normal blood pressure, generally unbalanced, iatrogenic with gabapentin use 01/16 CHF exacerbation/afib/severe aortic stenosis Discussed possibly patient w/ Afib/RVR vs UTI leading to fall in setting of severe aortic stenosis which could have worsened her CHF yudy in setting of increased salt PO intake. Family at bedside does report drunken appearance walking/balance issues(?pre- syncopal from severe -- patient does report feeling like she's going to pass out sometimes w/ ambulation) Eval in 306, +wet cough/O2 use, family at bedside. Mild distress/tachypnea w/ cough,Reporting wet nonproductive cough for several weeks. Biofire negative BNP added to AM labs --> 1243. I had Ms Vasquez in July 2021 she had ECHO 1 year prior which noted likely severe aortic stenosis. Does not appear she's had any surveillance echo to eval worsening contributing to fall. Prior ECHO 2020 ordered by me w/ severe , RVSP 40-50mmhg (using 2L O2 HS). Dry weight per CHF clinic ~102-104kg, appears was ~111lb on admission. Family reports using swelling in her feet to see if needing additional diuretics for 3 days as typically do. -- asking nursing to obtain daily standing scale weights/measure I&O Given 20mg PO lasix this morning (noting eating sleeve saltines at home per family due to abd fullness/nausea) Ordered additional 20mg IV for today, supplemental potassium to keep closer to 4 w/ afib Will plan to schedule 40mg IV daily vs 20mg IV BID pending repeat labs/eval Given her hx afib/palpitations reported, will have pacemaker checked to see if has been having elevated rates recently, ?worsened EF. EKG on admit AV paced, rates 91bpm. No troponin No on anticoagulation due to hx subarachnoid hemorrhage/subdural hematoma Repeating echo to see if possible elevated HR (reporting palpitations w/ hx parox afib over past several weeks) reducing EF vs other CHF clinic consulted Repeat CXR in AM for eval Moving to telemetry for closer monitoring regarding such Possible UTI UA/cx gram negative bacilli. Got 1 dose Ceftriaxone in ER, will obtain blood cultures/continue rocephin daily once drawn and follow up cultures. Follow up urine cx (2) Chronic combined systolic (congestive) and diastolic (congestive) heart failure: Plan: ACUTE ON CHRONIC EXACEBRATION Lasix 40mg IV given in the ER, resumed usual 20mg PO daily patient reports increased salt intake at home, mild pulm edema and trace R effusion on CT thoracic spine BNP checked, elevated as above Additonal dose lasix 20mg IV w/ her AM dose -- made daily but may need increased as above. BNP significant elevation (noting in setting of severe , no prior w/ new testing for comparison and could consider repeating in 2 days for eval) Weights/I&O as above, repeating ECHO, moving to monitored bed (3) Asymptomatic bacteriuria: Plan: Patient denies any symptoms. Thought to be at baseline except shoulder pain per family at bedside. Ceftriaxone given in the ER. Follow up urine culture. Given age/fall, urine cx w/ gram negative bacilli, will treat as UTI--> continue rocephin as above/blood cultures obtained (noting got dose IV abx in ER) (4) Paroxysmal atrial fibrillation: Plan: hx of such, as above not on AC due to hemorrhagic bleed Moving to tele/pacemaker interrogation Keep K/mag replete -- additional Kcl w/ lasix today, 1gm IV mag for now but suspect additional dosing and will monitor levels in AM (5) Rotator cuff tear arthropathy of right shoulder: Plan: Suspected - pain over AC joint with lack of shoulder movement Acetaminophen 1g TID Tramadol 50mg q4h PRN for breakthrough pain Right arm sling Ortho consulted as prior rotator cuff repair believed on that side, consideration for further imaging deferred for now, sensation intact (6) Cough: Plan: Unclear cause but suspect CHF exacerbation as above (cause further eval as outlined). Biofire negative Lasix as outlined, no aspiration per family (however patient does have difficulty w/ large pills per patient -- using KCL powder w/ puddings), Suspect 2nd to pulm edema, consider speech eval (7) Hypertension: Plan: Continue carvedilol, given relatively low BP will hold valsartan Additional lasix as above, repeating ECHO, CHF clinic Pending repeat eval, likely resume valsartan in AM given CHF. BP presently 147/72 (8) Aortic stenosis: Plan: Denies any dizziness, shortness of breath or chest pain prior to falling on admission --> HOWEVER, per lengthy discussion with patient/family at bedside dose have dizziness/possible symptoms w/ syncope/pre-syncope as above Repeat echo as outlined (9) Diabetes mellitus: Plan: HbA1C 7.0 in November 2021, repeat 7.1 Given infection suspected as above, Glu 245 on AM labs, added BSG AC/HS, sliding scale w/ loose CF/CR and will make adjustments as needed Plan VTE Prophylaxis - heparin 5000 units SQ BID - monitor for any issues Moving to med tele, pacer interrogation/testing as outlined PT/OT evals --> family wanting rehab/placement, unsafe to return home Admission and Anticipated Discharge Date Admission Date: January 15, 2023 Supervising Physician Co-Signing Physician Notes The patient was not seen by me. The chart was reviewed. Case discussed with LONG Dillon. Agree with assessment and plan Subjective Patient evaluated this morning, family in room. Apparently "fell out of bed". When asking patient if stood up and felt weak like she was going to pass out and she said yes. Weight usually ~103-105lb, they monitor swelling in her legs. Report when she's up/walking she seems drunk and feels like she is going to pass out. Hx aortic stenosis, discussed repeat echo. When discussed afib, reports she did have palpitations over the past couple weeks. She reports having increased abdominal fullness but no issues moving her bowels. Hx afib not on blood thinner but is on aspirin. Hx brain bleed. Notes + Cough but not productive (has been productive in the past but not recently). Wet cough. On 1L NC. Ongoing cough for several weeks. Family reporting she ate a whole sleeve of saltines recently. Discussed pacemaker interrogation Prior shoulder rotator cuff tear/repair. Xray negative but can have ortho eval. Will move to monitored bed to see if going in/out of afib/elevated rates. Discussed UA/possible UTI and abx treatment. Discussed possibly patient w/ Afib/RVR vs UTI leading to fall in setting of severe aortic stenosis which could have worsened her CHF yudy in setting of increased salt PO intake. Physical Exam 2 Physical Exam: frail elderly female sitting up in bed, + cough, no tachypnea RR 18, family at bedside heent; head normocephalic, atraumatic, mmm, +JVD, trachea midline chest: L sided pacemaker present resp: diminsihed in the bases, faint expiratory wheezing, +rales posteriorly, on 1L NC CV: ?irregular, + harsh holosystolic murmur, S1 (?absent vs quiet S2), trace pedal edema, no calf tenderness, pulses palpable GI; +BS, soft but slight distension, no tenderness reported : no genao MSK/Neuro: does not want to move her L shoulder due to pain, sensation in hands intact, able to follow commands, no slurred speech/facial droop Psych: AO to person/place, time, ?to events -- intermittent confusion at times possible but appears to be answering questions appropriately as able Results & Data Results & Data Vital Signs (Past 12 Hours) Vital Signs Temp Pulse Resp BP Pulse Ox O2 Del Method O2 Flow Rate 01/16/23 08:29 Nasal Cannula 1 01/16/23 07:14 36.4 C L 62 18 147/72 H 96 Nasal Cannula 1 Laboratory Results 01/16/23 06:01 01/16/23 06:01 Diagnostic Findings Cervical Spine CT 01/15/23 10:45 CT OF THE CERVICAL SPINE WITHOUT CONTRAST CLINICAL HISTORY: fall, trauma COMPARISON STUDY: CTA of the neck September 26, 2022. Cervical spine CT April 01, 2021. TECHNIQUE: Helical axial images of the cervical spine were obtained without IV contrast. Sagittal and coronal reconstructions were viewed. Automated exposure control was utilized for the study. A dose lowering technique was utilized adhering to the principles of ALARA. FINDINGS: Alignment of the cervical spine is anatomic. Vertebral body heights are maintained. No acute cervical spine fracture or subluxation is present. There is no prevertebral edema. Facet joints are intact. Severe multilevel facet arthrosis is again noted. There is moderate multilevel disc space narrowing and osteophytosis within the cervical spine. Mild interlobular septal thickening within the visualized lung apices is incidentally noted. IMPRESSION: No acute cervical spine fracture or subluxation. ACT 112: Negative or not required by law. Electronically signed by: Sonido Issa M.D. 01/15/2023 12:[address] 01/15/23 10:45 CT OF THE HEAD WITHOUT CONTRAST CLINICAL HISTORY: fall, trauma COMPARISON STUDY: Head CT and CTA of the head September 26, 2022. TECHNIQUE: Helical axial images of the head were obtained without IV contrast. Automated exposure control was utilized for the study. A dose lowering technique was utilized adhering to the principles of ALARA. FINDINGS: No acute intracranial hemorrhage, midline shift or mass effect is present. Ventricular dilatation is unchanged. Basal cisterns are patent. There are no extra-axial collections. White matter hypodensities are unchanged. 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 There are no findings to suggest acute dural sinus thrombosis or acute territorial infarct. There are no acute calvarial fracture. There is mild sinus mucosal thickening. A right parietal calvarial defect is chronic. IMPRESSION: 1. No acute intracranial findings. No change in appearance of the brain. 2. No acute calvarial fractures. ACT 112: Negative or not required by law. Electronically signed by: Sonido Issa M.D. 01/15/2023 12:21 PM Humerus X-Ray 01/15/23 10:45 XR humerus RT 2V CLINICAL HISTORY: fall, trauma COMPARISON: Right shoulder radiographs September 04, 2010. FINDINGS: Alignment of the right shoulder and right elbow is anatomic. There is no acute fracture within the right humerus. No osseous lesions are identified within the right humerus. IMPRESSION: No fractures within the right humerus. ACT 112: Negative or not required by law. Electronically signed by: Sonido Issa M.D. 01/15/2023 11:22 AM Shoulder X-Ray 01/15/23 10:45 XR shoulder RT min 2V routine CLINICAL HISTORY: fall, trauma COMPARISON: Right shoulder radiographs September 04, 2010. FINDINGS: Widening of the right AC joint interval is unchanged since recent chest radiographs. This is not acute. There is no acute fracture within the right shoulder. There are no osseous lesions. Mild glenoid humeral joint osteophytosis is present. There is minimal calcific tendinitis rotator cuff. IMPRESSION: No acute fracture or dislocation within the right shoulder. ACT 112: Negative or not required by law. Electronically signed by: Sonido Issa M.D. 01/15/2023 11:[address] 01/15/23 10:45 CT OF THE THORACIC SPINE CLINICAL HISTORY: fall, trauma COMPARISON STUDY: Thoracic spine CT June 15, 2019. Thoracic spine radiographs September 29, 2022. Chest CT September 01, 2022. TECHNIQUE: Helical axial images of the thoracic spine were obtained. Sagittal and coronal reconstructions were viewed. Automated exposure control was utilized for the study. A dose lowering technique was utilized adhering to the principles of ALARA. FINDINGS: Alignment of the thoracic spine is anatomic. There is extensive anterior osteophytosis of the thoracic spine. Old moderate L1 compression fracture is unchanged from CT of June 15, 2019. There is no acute thoracic spine fracture. There are no osseous lesions. Paravertebral soft tissues are unremarkable. Nondisplaced posterior right fifth rib fracture is new since chest CT of September 01, 2022. There is mild interlobular septal thickening within visualized portions of the lungs. Trace right pleural effusion is present. Pacer leads are partially imaged. IMPRESSION: 1. No acute thoracic spine fracture or subluxation. 2. Nondisplaced posterior right fifth rib fracture is age indeterminate but new since CT of September 01, 2022. 3. Mild pulmonary edema. Trace right pleural effusion. ACT 112: Negative or not required by law. Electronically signed by: Sonido Issa M.D. 01/15/2023 12:41 PM Chest X-Ray 01/15/23 10:46 XR chest 1V portable CLINICAL HISTORY: Cough. Fall. COMPARISON STUDY: Chest radiograph June 01, 2022. Chest CT September 01, 2022. FINDINGS: Median sternotomy wires, dual lead left subclavian pacer and prosthetic mitral valve are noted. Cardiomediastinal silhouette is stable. There is no pneumothorax. No definite pleural effusion is present. No airspace opacities are identified. There are old left rib fractures. No evidence for overt pulmonary edema. IMPRESSION: No acute cardiopulmonary findings. No significant change in appearance of the chest. ACT 112: Negative or not required by law. Electronically signed by: Sonido Issa M.D. 01/15/2023 11:17 AM PG Care Time/CCT Total # of Minutes Spent Total Time Spent with Patient: Total time spent is greater than 50% in coordination of care (as documented) at patient's floor/unit and/or counseling patient: Prolonged Care Time Prolonged Care Time: Yes additional 30 minutes spent at bedside with family for further information/discussion, additional lab testing additional time discussing care with nursing staff/transferring to monitored bed Coding Level of Care Code 42831 SUB INP/OBS CARE 3/50MIN (25 - SIGNIFICANT, SEPARATELY IDENTIFIABLE ) Diagnoses Fall W19.XXXA Encounter type: initial encounter Chronic combined systolic (congestive) and diastolic (congestive) heart failure I50.42 Asymptomatic bacteriuria R82.71 Paroxysmal atrial fibrillation I48.0 Rotator cuff tear arthropathy of right shoulder M75.101; M12.811 Cough R05.1 Cough type: acute Hypertension I10 Aortic stenosis I35.0 Type 2 diabetes mellitus without complication, with long-term current use of insulin E11.9; Z79.4 Diabetes mellitus complication status: without complication Diabetes mellitus terminal supervisor insulin use: with halfway use Diabetes mellitus type: type 2 Additional Codes Prolonged Care Time - Prolonged Care Time: Yes ([id number]) (1) Fall Encounter type: initial encounter Qualified Code(s): W19.XXXA - Unspecified fall, initial encounter (6) Cough Cough type: acute Qualified Code(s): R05.1 - Acute cough (9) Diabetes mellitus Diabetes mellitus complication status: without complication Diabetes mellitus halfway insulin use: with terminal supervisor use Diabetes mellitus type: type 2 Qualified Code(s): E11.9 - Type 2 diabetes mellitus without complications; Z79.4 - watermelon inspector (current) use of insulin
[2023-01-16] MEDS ORDERED: FUROSEMIDE 20 MG TAB PO SCH (09:00)
[2023-01-16] MEDS ORDERED: POTASSIUM CHLORIDE CRTAB 20 MEQ TABCR PO STA (11:22)
[2023-01-16] MEDS ORDERED: POTASSIUM CHLORIDE PWD 20 MEQ PACK PO ONE (11:38)
[2023-01-16] MEDS: traMADol HCL 50 MG TABLET PO PRN (11:43)
[2023-01-16] MEDS ORDERED: MAGNESIUM SULFATE / D5W 1 GM/100 ML BAG IV ONE (11:50)
[2023-01-16] MEDS: cefTRIAXone SODIUM 2,000 MG in DEXTROSE 5 % MINI-B 50 ML IV SCH (12:46)
[2023-01-16] MEDS ORDERED: FUROSEMIDE INJ 20 MG/2 ML VIAL IV ONE (13:00)
[2023-01-16] MEDS ORDERED: GLUCOSE 40% GEL 15 GM TUBE PO PRN (13:49)
[2023-01-16] MEDS ORDERED: GLUCAGON FOR INJ 1 MG VIAL SQ PRN (13:49)
[2023-01-16] MEDS ORDERED: DEXTROSE 50% 50 ML SYRINGE IV PRN (13:49)
[2023-01-16] MEDS ORDERED: CARBOHYDRATES FOR HYPOGLYCEMIA PO PRN (13:49)
[2023-01-16] MEDS ORDERED: GLUCOSE 10 TAB/TUBE PO PRN (13:49)
--- NOTE | 2023-01-16 14:51 | XCELERA ---
[id number]
[2023-01-16] MEDS: INSULIN ASPART PER UNIT CHARGE SC SCH ×3 (17:36→20:12)
[2023-01-16] MEDS: LOVASTATIN 20 MG TAB PO SCH (20:05)
[2023-01-17 05:05] LABS: Basophils # (auto) 0.03 K/uL (0.00-0.20); Basophils % (auto) 0.3 %; Eosinophils # (auto) 0.13 K/uL (0.00-0.50); Eosinophils % (auto) 1.4 %; Hemoglobin 12.2 g/dl (12.0-16.0); Immature Granulocytes # (auto) 0.07 K/uL (0.01-0.20); Immature Granulocytes % (auto) 0.8 %; Lymphocytes # (auto) 1.43 K/uL (1.20-3.40); Lymphocytes % (auto) 15.7 %; Mean Corpuscular Hemoglobin 29.3 pg (25.0-34.0); Mean Corpuscular Hgb Conc 32.1 g/dL (32.0-36.0); Mean Corpuscular Volume 91.3 fL (80.0-100.0); Mean Platelet Volume 10.9 fL (9.4-12.4); Monocytes # (auto) 0.46 K/uL (0.11-0.59); Monocytes % (auto) 5.1 %; Neutrophils # (auto) 6.96 K/uL (1.40-6.50); Neutrophils % (auto) 76.7 %; Platelet Count 182 K/uL (130-400); RDW Coefficient of Variation 14.1 % (11.5-14.5); RDW Standard Deviation 47.5 fL (36.4-46.3); Red Blood Count 4.16 M/uL (4.20-5.40); White Blood Count 9.08 K/ul (4.8-10.8)
[2023-01-17 05:21] LABS: Albumin Level 3.9 gm/dl (3.4-5.0); BUN Creatinine Ratio 23.5 (10-20); Bilirubin,Total 0.5 mg/dl (0.2-1.0); Calcium 9.2 mg/dl (8.6-10.3); Creatinine Clr Calc Pharmacy 26.9 ml/min; Est GFR (African American) 56.5 ml/min; Est GFR (Non-African American) 48.7 ml/min; Globulin 3.8 gm/dl (2.5-4.0); Magnesium 1.9 mg/dl (1.7-2.4); Potassium 3.8 mmol/L (3.5-5.1); Total Protein 7.7 gm/dl (6.0-8.3)
[2023-01-17] MEDS: ACETAMINOPHEN 500 MG TAB PO SCH ×3 (05:24→20:29)
--- NOTE | 2023-01-17 07:44 | XRay Report ---
XR chest 1V portable HISTORY: Congestive heart failure. Follow-up. Shortness of breath. COMPARISON: Chest 01/15/2023. FINDINGS: No pneumothorax. The cardiac silhouette is top normal in size. There is a left-sided pacema ker, poststernotomy changes, and a cardiac valve prosthesis again noted. There is mild central pulmon марина vascular congestion without overt edema. There are trace bilateral pleural effusions. No new foca l lung consolidations to suggest a pneumonia. There are calcifications within the aortic knob. A 9 mm nodular density within the right lung apex may be external to the patient. There were no pulmonary n odules identified at this location on the 09/01/[address] IMPRESSION: 1. Mild central pulmonary vascular congestion without overt edema. This has slightly progressed. 2. Trace bilateral pleural effusions. ACT 112: Negative or not required by law. Electronically signed by: Delta Barrientos M.D. 01/17/2023 7:42 AM
--- NOTE | 2023-01-17 08:12 | Hospitalist Progress Note ---
Date of Service January 17, 2023 Assessment & Plan (1) Fall: Plan: Multiple falls in the last year per family at bedside and they do not feel she is safe for discharge home at this time -- initially reported falling out of bed however subsequent day stated attempted to stand but legs weak/felt like giving out on her. CK wnl Biofire negative CHF exacerbation/severe aortic stenosis Discussed possibly patient w/ Afib/RVR vs UTI leading to fall in setting of severe aortic stenosis which could have worsened her CHF yudy in setting of increased salt PO intake. Family at bedside 01/16 report pt w/ drunken appearance walking/balance issues at baseline(?pre-syncopal from severe -- patient does report feeling like she's going to pass out sometimes w/ ambulation) BNP checked, elevated @ 1243 Lasix 40mg in ER, given 20mg PO/20mg IV on 01/16 and scheduled 40mg IV daily CXR appears improved/stable Supplemental O2 to maintain sats ECHO w/ EF 45-50%, severe aortic stenosis/mild mitral stenosis/mild mitral regurg Continue carvedilol BID (refused PM dosing 01/16 -- suspect she isn't taking meds right at home) SR/paced on telemetry at present Weight 48.3kg from 47.3kg but was 58.8kg reported on admit (dry weight ~102- 105lb) Monitor weights /I&O CHF clinic consulted --> plan for increased PO dosing and will change to lasix 40mg PO daily 01/18 --> will also resume her valsartan for AM SPeech consulted for possible aspiration? PT/OT consulted and planning for rehab/SNF at discharge as unsafe to return home (2) Chronic combined systolic (congestive) and diastolic (congestive) heart failure: Plan: As above, acute on chronic. BNP elevation. HFmrEF, EF 45-50% Exacerbation 2nd to possibly elevated HR/infection in setting of severe valvular dysfunction as well as dietary indiscretion (eating sleeve of saltine cracker) As above, Lasix transitioned PO for 01/18, valsartan resumed and will monitor O2 to maintain sats, ?2step prior to dc (3) Urinary tract infection: Plan: UTI - Urine cx w/ ecoli x 2 on preliminary. Blood cxs obtained (following ER dose abx) - pansensitive. if blood cx remain ngtd/no fevers can change to PO tomorrow (4) Paroxysmal atrial fibrillation: Plan: Afib Hx paroxysmal afib Pacemaker interrogation w/ afib >6hr x 2 days, one day appears almost completely in afib. Moved to telemetry for continued monitoring Continue carvedilol Not on AC due to hemorrhage/subdural hematoma Keep K/mag replete (5) Rotator cuff tear arthropathy of right shoulder: Plan: Suspected - pain over AC joint with lack of shoulder movement Acetaminophen 1g TID Tramadol 50mg q4h PRN for breakthrough pain Right arm sling Ortho consulted as prior rotator cuff repair believed on that side, consideration for further imaging deferred for now, sensation intact --> possible injection to be considered PT/OT (6) Cough: Plan: Unclear cause but suspect CHF exacerbation as above (cause further eval as outlined). Biofire negative Lasix as outlined, no aspiration per family (however patient does have difficulty w/ large pills per patient -- using KCL powder w/ puddings), Suspect 2nd to pulm edema, Speech consulted given choking w/ peaches this morning Aspiration precautions to be maintained (7) Hypertension: Plan: Continue carvedilol, given relatively low BP held valsartan initially however stable/improved and will plan to resume in AM. Lasix to 40mg PO daily Monitor (8) Aortic stenosis: Plan: Denies any dizziness, shortness of breath or chest pain prior to falling on admission --> HOWEVER, per lengthy discussion with patient/family at bedside 12 dose have dizziness/possible symptoms w/ syncope/pre-syncope as above Repeat echo as outlined (9) Diabetes mellitus: Plan: HbA1C 7.0 in November 2021, repeat 7.1 Given infection suspected as above, Glu 245 on AM labs, added BSG AC/HS, sliding scale w/ loose CF/CR and will make adjustments as needed Plan VTE Prophylaxis - heparin 5000 units SQ BID - monitor for any issues PT/OT evals --> family wanting rehab/placement, unsafe to return home. CM following Updated granddaughter at bedside AM 12/5, and daughter by phone per request Admission and Anticipated Discharge Date Admission Date: January 15, 2023 Supervising Physician Co-Signing Physician Notes PA Supervision Note: I did not personally see or examine the patient today, but I verified all godinez points of LONG Tao's assessment and plan with the following exceptions/additions: None Subjective EVal around lunch, grandaughter at bedside, had been back a little further/choked on some peaches this morning. On 2L NC, +cough, not productive. Renal function stable and discussed continued increased dose lasix/consult w/ CHF clinic. PAtient reports seening female with blonde curly hair this morning but is confused where she is at present time. No focal deficits on exam but frequent orientation required. Joking with her family and nurse about being a handful/giving nurse a shove. Took meds this AM no problem, except PO KCL -- discussed w/ nursing to provide with pudding as in order and took without issue yesterday. Planning for rehab once stable. Granddaughter requests call to update her mom this evening. Physical Exam 2 Physical Exam: frail elderly female sitting up in bed, + cough, no tachypnea RR 18, family at bedside heent; head normocephalic, atraumatic, mmm, +JVD, trachea midline chest: L sided pacemaker present resp: diminsihed in the bases, faint expiratory wheezing, +rales posteriorly, on 1L NC CV: ?irregular, + harsh holosystolic murmur, S1 (?absent vs quiet S2), trace pedal edema, no calf tenderness, pulses palpable GI; +BS, soft but slight distension, no tenderness reported : no genao MSK/Neuro: does not want to move her L shoulder due to pain, sensation in hands intact, able to follow commands, no slurred speech/facial droop Psych: AO to person/place, time, ?to events -- intermittent confusion at times possible but appears to be answering questions appropriately as able Results & Data Results & Data Vital Signs (Past 12 Hours) Vital Signs Temp Pulse Pulse Resp BP Pulse Ox O2 Del Method 01/17/23 07:52 36.3 C L 93 H 16 169/78 H 95 Nasal Cannula 01/17/23 04:53 36.6 C 79 16 168/91 H 96 Room Air 01/17/23 00:43 36.6 C 73 14 178/77 H 98 Nasal Cannula 01/16/23 22:05 75 01/16/23 20:24 36.8 C 71 18 156/69 H 93 Nasal Cannula O2 Flow Rate 01/17/23 07:52 2 01/17/23 04:53 01/17/23 00:43 2 01/16/23 22:05 01/16/23 20:24 2 Laboratory Results 01/17/23 04:47 01/17/23 04:47 Diagnostic Findings Chest X-Ray 01/17/23 07:00 XR chest 1V portable HISTORY: Congestive heart failure. Follow-up. Shortness of breath. COMPARISON: Chest 01/15/2023. FINDINGS: No pneumothorax. The cardiac silhouette is top normal in size. There is a left-sided pacemaker, poststernotomy changes, and a cardiac valve prosthesis again noted. There is mild central pulmonary vascular congestion without overt edema. There are trace bilateral pleural effusions. No new focal lung consolidations to suggest a pneumonia. There are calcifications within the aortic knob. A 9 mm nodular density within the right lung apex may be external to the patient. There were no pulmonary nodules identified at this location on the 09/01/[address] IMPRESSION: 1. Mild central pulmonary vascular congestion without overt edema. This has slightly progressed. 2. Trace bilateral pleural effusions. ACT 112: Negative or not required by law. Electronically signed by: Delta Barrientos M.D. 01/17/2023 7:42 AM ECHOCARDIOGRAM - LV systolic mildly reduced. Mild apical wall hypokinesis. Moderate LVH. EF 45- 50%. Severe valvular aortic stenosis. Mild mitral stenosis. Mild mitral regurgitation. Compared with study of 08/12/2020, no significant change PG Care Time/CCT Total # of Minutes Spent Total Time Spent with Patient: Total time spent is greater than 50% in coordination of care (as documented) at patient's floor/unit and/or counseling patient: Coding Level of Care Code 79652 SUB INP/OBS CARE 3/50MIN Diagnoses Fall W19.XXXA Encounter type: initial encounter Chronic combined systolic (congestive) and diastolic (congestive) heart failure I50.42 Urinary tract infection N39.0 Paroxysmal atrial fibrillation I48.0 Rotator cuff tear arthropathy of right shoulder M75.101; M12.811 Cough R05.1 Cough type: acute Hypertension I10 Aortic stenosis I35.0 Type 2 diabetes mellitus without complication, with long-term current use of insulin E11.9; Z79.4 Diabetes mellitus complication status: without complication Diabetes mellitus care home insulin use: with care home use Diabetes mellitus type: type 2 (1) Fall Encounter type: initial encounter Qualified Code(s): W19.XXXA - Unspecified fall, initial encounter (6) Cough Cough type: acute Qualified Code(s): R05.1 - Acute cough (9) Diabetes mellitus Diabetes mellitus complication status: without complication Diabetes mellitus manager long term care insulin use: with manager long term care use Diabetes mellitus type: type 2 Qualified Code(s): E11.9 - Type 2 diabetes mellitus without complications; Z79.4 - terminal clerk (current) use of insulin
[2023-01-17] MEDS ORDERED: FUROSEMIDE 40 MG/4 ML VIAL IV SCH (09:00)
[2023-01-17] MEDS: carvediloL 12.5 MG TAB PO SCH ×2 (10:28→18:22)
[2023-01-17] MEDS: ASPIRIN 81 MG ECTAB PO SCH (10:28)
[2023-01-17] MEDS: GABAPENTIN 100 MG CAP PO SCH ×2 (10:29→20:28)
[2023-01-17] MEDS: METHENAMINE HIPPURATE 1 GM TAB PO SCH ×2 (10:29→20:28)
[2023-01-17] MEDS: HEPARIN SOD 5,000 UNIT/0.5 ML VIAL SQ SCH ×2 (10:29→20:30)
[2023-01-17] MEDS: NEOMYCIN/POLYMYXIN/DEXAMETHA OP SOLN 5 ML BTL OPR SCH ×4 (10:29→20:30)
[2023-01-17] MEDS: PANTOprazole 40 MG TAB PO SCH ×2 (10:30→20:29)
[2023-01-17] MEDS: POTASSIUM CHLORIDE PWD 20 MEQ PACK PO SCH (10:30)
[2023-01-17] MEDS: SERTRALINE HCL 50 MG TABLET PO SCH (10:30)
[2023-01-17] MEDS: INSULIN ASPART PER UNIT CHARGE SC SCH ×4 (10:41→21:31)
--- NOTE | 2023-01-17 11:34 | Orthopedic Consultation ---
Date of Consultation January 17, 2023 Assessment & Plan (1) Rotator cuff tear arthropathy of right shoulder: Conservative versus surgical treatments were reviewed with the patient. If the patient was going to be discharged soon, we will consider follow-up in the outpatient setting for right shoulder corticosteroid injection. If she is going to be inpatient over the next few days, we will consider corticosteroid injection while inpatient. I will place the order for the steroid and anesthetic. Injection may be placed tomorrow. History of Present Illness Reason for Consultation: Right shoulder pain Attending Physician: Nicki Teague MD History of Present Illness This is a patient has developed right shoulder pain in the recent days. In the history of the hospitalist's note, the patient has had multiple falls over the past year. The patient's had right shoulder pain with difficulties with any motion. She has not had any recent treatment but feels she had had a rotator cuff surgery on that shoulder many years ago. Allergies Allergy/AdvReac Type Severity Reaction Status Date / Time butalbital Allergy Severe SHORTNESS Verified 01/15/23 12:16 OF BREATH Cephalosporins Allergy Severe TONGUE Verified 01/15/23 12:16 SWELLING WITH KEFLEX- tolerating keflex 03/16/20 tamsulosin Allergy Severe SHORTNESS Verified 01/15/23 12:16 OF BREATH nitrofurantoin Allergy Unknown Unknown Verified 01/15/23 12:16 [From Macrobid] levetiracetam AdvReac Intermediate RASH Verified 01/15/23 12:16 morphine AdvReac Intermediate hallucinati Verified 01/15/23 12:16 ons Sulfa (Sulfonamide AdvReac Unknown "SULFA Verified 01/15/23 12:16 Antibiotics) DRUGS" - UNKNOWN Home Medications Medication Instructions Recorded Confirmed Type calcium carbonate 500 mg-vitamin 1 tab PO QAM #0 tabs 04/09/20 01/15/23 History D3 5 mcg (200 unit) tablet (Os-Emile 500 + D3) methenamine hippurate 1 gram tablet 1 g PO BID 08/25/20 01/15/23 History ascorbic acid (vitamin C) 500 mg 500 mg PO QAM 11/19/20 01/15/23 History tablet ipratropium 0.5 mg-albuterol 3 mg 3 ml inhalation Q4H PRN Wheezing 01/28/21 01/15/23 Rx (2.5 mg base)/3 mL nebulization #180 mL soln peg 400-propylene glycol 0.4 %-0.3 1 drp ophthalmic (eye) Q8H PRN Dry 04/01/21 01/15/23 History % eye gel drops (Systane Gel) Eyes ferrous sulfate 325 mg (65 mg 325 mg PO QAM #90 tabs 05/14/21 01/15/23 Rx iron) tablet lovastatin 40 mg tablet 40 mg PO PM #90 tabs 04/18/22 01/15/23 Rx valsartan 40 mg tablet 20 mg (1/2 x 40 mg) PO QAM #45 tabs 04/25/22 01/15/23 Rx acetaminophen 500 mg tablet 650 mg PO Q6H PRN Pain 06/01/22 01/15/23 History (Tylenol Extra Strength) carbamide peroxide 6.5 % ear drops 5 drp otic (ear) Q12H PRN NEEDED 06/01/22 01/15/23 History (Debrox) calcitriol 0.25 mcg capsule 0.25 mcg PO 3XWK #36 caps 07/01/22 01/15/23 Rx carvedilol 12.5 mg tablet 12.5 mg PO BID #180 tabs 07/07/22 01/15/23 Rx sertraline 50 mg tablet 50 mg PO QAM #90 tabs 07/18/22 01/15/23 Rx aspirin 81 mg tablet,delayed 81 mg PO DAILY 09/27/22 01/15/23 History release (Adult Low Dose Aspirin) lancets 33 gauge ([employer] #100 ea 11/01/22 Rx Plus Lancet) lancing device with lancets kit #1 ea 11/01/22 Rx ([employer] Delica Plus Lancing Device kit) pantoprazole 40 mg tablet,delayed 40 mg PO BID #180 tabs 11/04/22 01/15/23 Rx release blood sugar diagnostic ([employer] #100 ea 12/19/22 Rx Verio test strips) furosemide 20 mg tablet 20 mg PO QAM 01/15/23 01/15/23 History gabapentin 100 mg capsule See Rx Instructions .Route .COMPLEX 01/15/23 01/15/23 History [id number]-[id number] 3.5 1 drp OPR QID 01/15/23 01/15/23 History mg/mL-10,000 unit/mL-0.1% eye drops Patient History Medical History Pacemaker battery depletion Chest pain Abdominal pain DVT prophylaxis Lower abdominal pain Anemia Cellulitis of right hand Abscess of hand, right Tenosynovitis of right hand Abscess of right hand Cellulitis of right hand Acute UTI (urinary tract infection) Fracture of pubic ramus Anticoagulant long-term use Allergy to multiple antibiotics Cardiac pacemaker for complete heart block, generator changed out 02/25/22 Vitamin D deficiency Transient ischemic attack (TIA) Solitary pulmonary nodule Secondary hyperparathyroidism of renal origin History of chest pain Gait instability Extremity atherosclerosis with intermittent claudication Diabetes mellitus Depression Chronic renal disease, stage III Cerebellar infarct Surgical History Hx of carpal tunnel repair History of nasal surgery Family History Other Family history non-contributory Social History Smoking Status: Former smoker Second Hand Exposure: No; Do You Dip or Chew Tobacco: No; Hx Alcohol Use: No Hx Substance Use: No Preferred Language: [place]ar[place] Communication Ability: Effective Visual Impairment: No Limitations 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 Painful passive range of mot), + ROM with crepitation (Right shoulder), + joint line tenderness (Diffuse right shoulder) and + drop arm test positive; no deformity, no skin erythema and no ecchymosis Skin: no rashes, warm and dry Trauma: no evidence of skin trauma Neurologic: normal touch/pain/proprioception Psychiatric: Orientation: alert Speech: normal rate/rhythm/volume of speech Results & Data Vital Signs (Past 12 Hours) Vital Signs Temp Pulse Pulse Resp BP Pulse Ox O2 Del Method 01/17/23 11:25 36.5 C 84 16 171/75 H 97 Nasal Cannula 01/17/23 08:09 Room Air 01/17/23 08:08 98 H 01/17/23 07:52 36.3 C L 93 H 16 169/78 H 95 Nasal Cannula 01/17/23 04:53 36.6 C 79 16 168/91 H 96 Room Air 01/17/23 00:43 36.6 C 73 14 178/77 H 98 Nasal Cannula O2 Flow Rate 01/17/23 11:25 2 01/17/23 08:09 01/17/23 08:08 01/17/23 07:52 2 01/17/23 04:53 01/17/23 00:43 2 Diagnostic Findings 2 views of the right shoulder were reviewed. No acute fractures. There appears to be mild arthritic changes of the glenohumeral joint. There appears to be postoperative changes of distal clavicle excision.
[2023-01-17] MEDS ORDERED: BUPIVACAINE 0.5 % 5 MG/1 ML MPF 30ML VIAL INFIL ONE (11:35)
[2023-01-17] MEDS ORDERED: ETHYL CHLORIDE AER SPR 100 ML CAN EXT ONE (11:35)
[2023-01-17] MEDS ORDERED: methylPREDNISolone acetate 80 MG/ML VIAL IA ONE (11:35)
[2023-01-17] MEDS: cefTRIAXone SODIUM 2,000 MG in DEXTROSE 5 % MINI-B 50 ML IV SCH (14:00)
--- NOTE | 2023-01-17 15:37 | Heart Failure Consultation ---
Date of Consultation January 17, 2023 Assessment & Plan (1) Heart failure with mildly reduced ejection fraction (HFmrEF): (2) Hypertension: (3) Aortic stenosis: (4) Paroxysmal atrial fibrillation: (5) Cardiomyopathy: (6) Cardiac pacemaker: (7) CAD (coronary artery disease): Plan Chronic CHF with mid-range EF: Patient presented after a fall. She has no specific HF complaints at this time. She appears near euvolemic to hypovolemic on exam. Weight is at her baseline. Multiple comorbidities likely contributing factor to her dyspnea/cough. Echocardiogram with mid-range EF and moderate to severe aortic stenosis. Continue Carvedilol and can likely resume Valsartan. Patient is on supplemental O2 at night typically. Continue to wean as able while inpatient. Speech eval is pending. Kidney function and electrolytes are stable. Will need to be careful not to over-diuresis with her . Would resume Lasix 40 mg PO tomorrow. Patient previously on 20 mg daily but with better dietary compliance. If she is consuming higher sodium foods at home may require 40 mg daily to maintain. Continue daily standing weights. Dry weight 104-106 lb. Increase to 40 mg daily for 2+ lb weight gain overnight or 5+lb in 1 week. Recommend low sodium diet, less than 2,000 mg daily. Could continue to revisit opportunities to further optimize her HF regimen as outpatient (Spironolactone/SGLT2i) however patient has preferred a conservative approach to treatment. Aortic stenosis: Moderate to severe. Her recent HF exacerbation likely due to dietary indiscretion/questionable medication adherence rather than . She is not interested in surgical intervention. If she continues to have worsening symptoms and frequent hospitalizations may be appropriate for hospice referral. Cardiomyopathy: Ischemic. Long standing. Continue GDMT. Pacemaker: Follows with Dr. Breaux Atrial fibrillation: Paroxysmal. Rate well controlled. Asymptomatic. Not on anticoagulation due to previous subarachnoid hemorrhage and subdural hematoma. More recently with frequent falls. Disposition: Continue close follow up with the heart failure program within 7 days of discharge. Follow up with Dr. Breaux as scheduled in February. Call with any problems, questions, or change in clinical status. Patient understood and agrees with the plan. History of Present Illness Attending Physician: Nicki Teague MD History of Present Illness Mrs. Vasquez is 87 year old female with history of hypertension, hypercholesterolemia, paroxysmal atrial fibrillation (March 2017), ischemic cardiomyopathy (45%), complete heart block (DDD pacemaker, October 2011, follows with Dr. Mcgee), mitral valve disease (mitral valve repair/annuloplasty, March 2010), HFmrEF, severe aortic stenosis, and her coronary artery disease (CABG x2, March 2010). Dr. Breaux is her primary cover operator. Recent cardiac studies: 1. 01/16/23 Echo: LV function is mildly reduced. Mild apical wall hypokinesis. Moderate concentric LVH. EF 45-50%. Severe . Mild MR. Patient presented on 08/10/20 with shortness of breath and edema. She failed to respond to escalation of her outpatient diuretic regimen. There was questionable medication adherence and likely dietary indiscretion. ProBNP elevated at 7k. CXR with pulmonary congestion. She received Lasix 40 mg IV in the ED and another 20 mg IV on admission. She responded well, negative 1.8 L. Her weight is down to 105 lb. Today she reports she's feeling well. Her breathing has improved to baseline. She remains on supplemental O2 but uses this at baseline she says. She slept well with her head slightly elevated. Denies PND. She has no lower extremity edema. She denies chest pain, palpitations, or lightheadedness. She was initially evaluated on 08/18/20 with the heart failure program. She was euvolemic on exam. She continued Lasix 20 mg daily. Dry weight 104-106 lb. She was most recently evaluated on 12/09/22 with [facility] for device check. She continued Lasix 20 mg daily. Dry weight 104-106 lb. She presented to the ED on 01/15/23 after recurrent falls. She fell out of bed injuring her right shoulder. She was not clearly in acute exacerbation but was treated with Lasix 40 mg IV due to hypoxia. Mild pulmonary edema and trace right pleural effusion on CXR. Valsartan held. BNP 1243 (no previous comparison). Echocardiogram unchanged from 2020. She does have a cough which she reports to be somewhat chronic. She has chronic dyspnea on exertion. She has no evidence of lower extremity edema. She denies chest pain, dizziness, syncope, near-syncope or palpitations. She denies fever, wheezing, cerebrovascular symptoms, or signs of bleeding including melena and hematuria. Kidney function and electrolytes stable. No significant urine output has been documented. She is 106 lb today which is basically her dry weight. Patient lives alone. Her daughter lives next door and does her medications. Allergies Allergy/AdvReac Type Severity Reaction Status Date / Time butalbital Allergy Severe SHORTNESS Verified 01/15/23 12:16 OF BREATH Cephalosporins Allergy Severe TONGUE Verified 01/15/23 12:16 SWELLING WITH KEFLEX- tolerating keflex 03/16/20 tamsulosin Allergy Severe SHORTNESS Verified 01/15/23 12:16 OF BREATH nitrofurantoin Allergy Unknown Unknown Verified 01/15/23 12:16 [From Macrobid] levetiracetam AdvReac Intermediate RASH Verified 01/15/23 12:16 morphine AdvReac Intermediate hallucinati Verified 01/15/23 12:16 ons Sulfa (Sulfonamide AdvReac Unknown "SULFA Verified 01/15/23 12:16 Antibiotics) DRUGS" - UNKNOWN Home Medications Medication Instructions Recorded Confirmed Type calcium carbonate 500 mg-vitamin 1 tab PO QAM #0 tabs 04/09/20 01/15/23 History D3 5 mcg (200 unit) tablet (Os-Emile 500 + D3) methenamine hippurate 1 gram tablet 1 g PO BID 08/25/20 01/15/23 History ascorbic acid (vitamin C) 500 mg 500 mg PO QAM 11/19/20 01/15/23 History tablet ipratropium 0.5 mg-albuterol 3 mg 3 ml inhalation Q4H PRN Wheezing 01/28/21 01/15/23 Rx (2.5 mg base)/3 mL nebulization #180 mL soln peg 400-propylene glycol 0.4 %-0.3 1 drp ophthalmic (eye) Q8H PRN Dry 04/01/21 01/15/23 History % eye gel drops (Systane Gel) Eyes ferrous sulfate 325 mg (65 mg 325 mg PO QAM #90 tabs 05/14/21 01/15/23 Rx iron) tablet lovastatin 40 mg tablet 40 mg PO PM #90 tabs 04/18/22 01/15/23 Rx valsartan 40 mg tablet 20 mg (1/2 x 40 mg) PO QAM #45 tabs 04/25/22 01/15/23 Rx acetaminophen 500 mg tablet 650 mg PO Q6H PRN Pain 06/01/22 01/15/23 History (Tylenol Extra Strength) carbamide peroxide 6.5 % ear drops 5 drp otic (ear) Q12H PRN NEEDED 06/01/22 01/15/23 History (Debrox) calcitriol 0.25 mcg capsule 0.25 mcg PO 3XWK #36 caps 07/01/22 01/15/23 Rx carvedilol 12.5 mg tablet 12.5 mg PO BID #180 tabs 07/07/22 01/15/23 Rx sertraline 50 mg tablet 50 mg PO QAM #90 tabs 07/18/22 01/15/23 Rx aspirin 81 mg tablet,delayed 81 mg PO DAILY 09/27/22 01/15/23 History release (Adult Low Dose Aspirin) lancets 33 gauge ([employer] #100 ea 11/01/22 Rx Plus Lancet) lancing device with lancets kit #1 ea 11/01/22 Rx ([place] Plus Lancing Device kit) pantoprazole 40 mg tablet,delayed 40 mg PO BID #180 tabs 11/04/22 01/15/23 Rx release blood sugar diagnostic (COMMUNICATIONS INFRASTRUCTURE INVESTMENTSuch #100 ea 12/19/22 Rx Verio test strips) furosemide 20 mg tablet 20 mg PO QAM 01/15/23 01/15/23 History gabapentin 100 mg capsule See Rx Instructions .Route .COMPLEX 01/15/23 01/15/23 History dlniqbaz-hupehfjju-acrbvgrp 3.5 1 drp OPR QID 01/15/23 01/15/23 History mg/mL-10,000 unit/mL-0.1% eye drops Patient History Medical History Pacemaker battery depletion Chest pain Abdominal pain DVT prophylaxis Lower abdominal pain Anemia Cellulitis of right hand Abscess of hand, right Tenosynovitis of right hand Abscess of right hand Cellulitis of right hand Acute UTI (urinary tract infection) Fracture of pubic ramus Anticoagulant long-term use Allergy to multiple antibiotics Cardiac pacemaker for complete heart block, generator changed out 02/25/22 Vitamin D deficiency Transient ischemic attack (TIA) Solitary pulmonary nodule Secondary hyperparathyroidism of renal origin History of chest pain Gait instability Extremity atherosclerosis with intermittent claudication Diabetes mellitus Depression Chronic renal disease, stage III Cerebellar infarct Surgical History Hx of carpal tunnel repair History of nasal surgery Family History Other Family history non-contributory Social History Smoking Status: Former smoker Second Hand Exposure: No; Do You Dip or Chew Tobacco: No; Hx Alcohol Use: No Hx Substance Use: No Preferred Language: [place] Communication Ability: Effective Visual Impairment: No Limitations 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 HEENT: Head is atraumatic and normocephalic. EOMs intact. Sclera anicteric. Face is symmetric. No perioral cyanosis. Mucous membranes dry. Neck: Supple, no JVD Pulmonary: Normal respiratory effort, decreased breath sounds throughout. Cardiac: Regular rate and rhythm. Normal S1 and S2, no gallops, no rubs. + 2/6 systolic murmur. Chest: Palpable left subclavian device Extremities: 2+ radial pulses bilaterally. 2+ posterior tibialis pulses bilaterally. No pitting edema. No cyanosis or clubbing. Right shoulder pain with ROM. Abdomen: Normal bowel sounds, soft, non-tender, no abdominal mass palpated Skin: Normal skin color, turgor, and pigmentation, no rash, no skin lesions Neurological: Patient is awake, alert, and oriented. Pleasant and cooperative. Answers questions appropriately. Speech is clear. Normal movement in all 4 extremities. Gait pattern not assessed. Results & Data Vital Signs (Past 12 Hours) Vital Signs Temp Pulse Pulse Resp BP Pulse Ox O2 Del Method 01/17/23 11:25 97.7 F 84 16 171/75 H 97 Nasal Cannula 01/17/23 08:09 Room Air 01/17/23 08:08 98 H 01/17/23 07:52 97.3 F L 93 H 16 169/78 H 95 Nasal Cannula 01/17/23 04:53 97.9 F 79 16 168/91 H 96 Room Air O2 Flow Rate 01/17/23 11:25 2 01/17/23 08:09 01/17/23 08:08 01/17/23 07:52 2 01/17/23 04:53 Coding Level of Care Code 98597 INT INP/OBS CARE 3/75MIN Diagnoses Heart failure with mildly reduced ejection fraction (HFmrEF) I50.22 Hypertension I10 Aortic stenosis I35.0 Paroxysmal atrial fibrillation I48.0 Cardiomyopathy I42.9 Cardiac pacemaker Z95.0 Coronary artery disease of bypass graft of [place] heart with stable angina pectoris I25.708 Coronary Disease-Associated Artery/Lesion type: bypass graft [place] vs. transplanted heart: [place] heart Associated angina: with stable angina (7) CAD (coronary artery disease) Coronary Disease-Associated Artery/Lesion type: bypass graft [place] vs. transplanted heart: [place] heart Associated angina: with stable angina Qualified Code(s): I25.708 - Atherosclerosis of coronary artery bypass graft(s), unspecified, with other forms of angina pectoris
[2023-01-17] MEDS: LOVASTATIN 20 MG TAB PO SCH (20:29)
[2023-01-18] MEDS: ACETAMINOPHEN 500 MG TAB PO SCH ×3 (06:05→20:54)
[2023-01-18] MEDS: INSULIN ASPART PER UNIT CHARGE SC SCH ×4 (09:06→20:51)
[2023-01-18] MEDS: SERTRALINE HCL 50 MG TABLET PO SCH (09:08)
[2023-01-18] MEDS: PANTOprazole 40 MG TAB PO SCH ×2 (09:08→20:56)
[2023-01-18] MEDS: METHENAMINE HIPPURATE 1 GM TAB PO SCH ×2 (09:08→20:56)
[2023-01-18] MEDS: ASPIRIN 81 MG ECTAB PO SCH (09:08)
[2023-01-18] MEDS: HEPARIN SOD 5,000 UNIT/0.5 ML VIAL SQ SCH ×2 (09:09→20:54)
[2023-01-18] MEDS: GABAPENTIN 100 MG CAP PO SCH ×2 (09:10→20:55)
[2023-01-18] MEDS: carvediloL 12.5 MG TAB PO SCH ×2 (09:11→17:49)
[2023-01-18] MEDS: NEOMYCIN/POLYMYXIN/DEXAMETHA OP SOLN 5 ML BTL OPR SCH ×4 (09:14→20:57)
[2023-01-18] MEDS: VALSARTAN 80 MG TAB PO SCH (09:14)
[2023-01-18] MEDS: POTASSIUM CHLORIDE PWD 20 MEQ PACK PO SCH (09:14)
[2023-01-18] MEDS: FUROSEMIDE 40 MG TAB PO SCH (09:14)
[2023-01-18] MEDS: cephALEXin 500 MG CAP PO SCH ×2 (13:24→20:55)
--- NOTE | 2023-01-18 14:10 | Communication Note ---
Date of Service: January 18, 2023 Patient seen by Manuel Garcia PA-C yesterday in consult for right shoulder pain. History of right rotator cuff tear with repair in the past now right shoulder pain that has returned and is somewhat debilitating. A Depo-Medrol injection was ordered by Mr. Jose MUELLER and we are here to plan to do that injection today. Patient is accompanied with family and they were in agreement to having a right subacromial shoulder injection. Patient was in her chair at the bedside. She is awake and alert. She again is in agreement for her right shoulder injection. At that time a posterior lateral injection point was marked and cleansed with alcohol swabs and Betadine swabs and let to dry. Ethyl chloride was used to anesthetize the skin. 80 mg of Depo-Medrol and 1 cc of half percent Marcaine was injected in the subacromial space. The patient tolerated the injection well without incident. A Band-Aid was placed over the injection site. Range of motion as tolerated with the right shoulder. Patient may follow-up with [facility] in the future if she continues to have further discomfort.
--- NOTE | 2023-01-18 19:43 | Hospitalist Progress Note ---
Date of Service January 18, 2023 Assessment & Plan (1) Fall: Plan: Multiple falls in the last year per family they do not feel she is safe for discharge home at this time -- initially reported falling out of bed however subsequent day stated attempted to stand but legs weak/felt like giving out on her. CK wnl Biofire negative With UTI possibly contributing PT/OT consulted and planning for rehab/SNF at discharge as unsafe to return home Not likely related to her severe No arrhythmias on tele except some paroxysmal afib on pacer interrogation Vitals here normal (2) Chronic combined systolic (congestive) and diastolic (congestive) heart failure: Plan: Acute on chronic combined systolic and diastolic CHF with severe aortic stenosis 2/2 dietary indiscretion, eating saltine crackers BNP 1243 CXR with pulm edema ECHO w/ EF 45-50%, severe aortic stenosis/mild mitral stenosis/mild mitral regurg Clinically seems improved after some IV lasix -Continue carvedilol BID -Monitor weights /I&O -CHF clinic consulted -continue lasix 40mg PO daily 01/18 -continue valsartan -O2 to keep sats>90% (3) Urinary tract infection: Plan: - Urine cx w/ E. coli x 2 pansensitive. -Blood cxs obtained (following ER dose abx)-NGTD - dc ceftriaxone and change to po keflex to finish out 1 week (4) Paroxysmal atrial fibrillation: Plan: Hx paroxysmal afib Pacemaker interrogation w/ afib >6hr x 2 days, one day appears almost completely in afib. Moved to telemetry for continued monitoring Continue carvedilol Not on AC due to hemorrhage/subdural hematoma (5) Rotator cuff tear arthropathy of right shoulder: Plan: Suspected - pain over AC joint with lack of shoulder movement Acetaminophen 1g TID Tramadol 50mg q4h PRN for breakthrough pain Right arm sling Ortho consulted -now s/p injection on 01/18 with improvement PT/OT (6) Cough: Plan: Unclear cause but suspect CHF exacerbation as above (cause further eval as outlined). Biofire negative Improved now with IV diuresis Speech consulted given choking w/ peaches here--> doing better with minced and moist diet, no s/s aspiration on their exam (7) Hypertension: Plan: BPs controlled Continue carvedilol and valsartan,Lasix to 40mg PO daily Monitor (8) Aortic stenosis: Plan: Severe, similar on ECHO here to 2020 and 2021 Denies any dizziness, shortness of breath or chest pain prior to falling on admission but does have some presyncopal symptoms-follow up with Cardiolg[facility] (9) Diabetes mellitus: Plan: HbA1C 7.0 in November 2021, repeat 7.1 Given infection suspected as above, Glu 245 on AM labs, added BSG AC/HS, sliding scale w/ loose CF/CR and will make adjustments as needed Plan VTE Prophylaxis - heparin 5000 units SQ BID - monitor for any issues PT/OT evals --> family wanting rehab/placement, unsafe to return home. CM following awaiting rehab placement Admission and Anticipated Discharge Date Admission Date: January 17, 2023 Subjective Pt c/o right shoulder pain which is now better since the injection. Denies any other issues Tele with paced rhythm in the 60-70s Physical Exam Constitutional: WD/WN, vitals as above Respiratory: normal respiratory effort, lungs clear to auscultation Cardiovascular: Rate/Rhythm: regular rate and regular rhythm Heart Sounds: + murmur (3/6 CHASTITY in RUSB) Extremities: no edema Gastrointestinal (Abdomen): normal bowel sounds, soft, nontender, no hepatosplenomegaly Psychiatric: Orientation: alert, oriented to person, oriented to place and cooperative Results & Data Results & Data Vital Signs (Past 12 Hours) Vital Signs Temp Pulse Pulse Pulse Resp BP BP 01/18/23 16:55 66 01/18/23 15:45 36.4 C L 69 17 124/80 01/18/23 12:26 01/18/23 11:06 36.4 C L 69 22 163/73 H 01/18/23 08:16 36.3 C L 78 18 170/73 H Pulse Ox O2 Del Method O2 Flow Rate 01/18/23 16:55 01/18/23 15:45 Nasal Cannula 2 01/18/23 12:26 Nasal Cannula 2 01/18/23 11:06 95 Nasal Cannula 2 01/18/23 08:16 96 Nasal Cannula 2 Laboratory Results no labs PG Care Time/CCT Total # of Minutes Spent Total Time Spent with Patient: Total time spent is greater than 50% in coordination of care (as documented) at patient's floor/unit and/or counseling patient: Coding Level of Care Code 58362 SUB INP/OBS CARE MIN Diagnoses Fall W19.XXXA Encounter type: initial encounter Chronic combined systolic (congestive) and diastolic (congestive) heart failure I50.42 Urinary tract infection N39.0 Paroxysmal atrial fibrillation I48.0 Rotator cuff tear arthropathy of right shoulder M75.101; M12.811 Cough R05.1 Cough type: acute Hypertension I10 Aortic stenosis I35.0 Type 2 diabetes mellitus without complication, with long-term current use of insulin E11.9; Z79.4 Diabetes mellitus type: type 2 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
[2023-01-18] MEDS: LOVASTATIN 20 MG TAB PO SCH (20:55)
[2023-01-18] MEDS ORDERED: COUGH DROP (SUGAR FREE) LOZ 24 LOZ/1 BOX BUCCAL STA (22:20)
[2023-01-19 05:37] LABS: Hematocrit (blood only) 37.1 % (37.0-47.0); Hemoglobin 12.3 g/dl (12.0-16.0); Mean Corpuscular Hemoglobin 29.6 pg (25.0-34.0); Mean Corpuscular Hgb Conc 33.2 g/dL (32.0-36.0); Mean Corpuscular Volume 89.4 fL (80.0-100.0); Mean Platelet Volume 10.8 fL (9.4-12.4); Platelet Count 195 K/uL (130-400); RDW Standard Deviation 45.6 fL (36.4-46.3); Red Blood Count 4.15 M/uL (4.20-5.40); White Blood Count 8.38 K/ul (4.8-10.8)
[2023-01-19 05:51] LABS: BUN Creatinine Ratio 40.7 (10-20); Calcium 9.4 mg/dl (8.6-10.3); Creatinine Clr Calc Pharmacy 22.3 ml/min; Est GFR (Non-African American) 38.9 ml/min; Potassium 4.5 mmol/L (3.5-5.1)
[2023-01-19] MEDS: ASPIRIN 81 MG ECTAB PO SCH (08:56)
[2023-01-19] MEDS: carvediloL 12.5 MG TAB PO SCH ×2 (08:56→18:03)
[2023-01-19] MEDS: ACETAMINOPHEN 500 MG TAB PO SCH ×3 (08:56→20:59)
[2023-01-19] MEDS: INSULIN ASPART PER UNIT CHARGE SC SCH ×4 (08:56→20:59)
[2023-01-19] MEDS: HEPARIN SOD 5,000 UNIT/0.5 ML VIAL SQ SCH ×2 (08:57→20:08)
[2023-01-19] MEDS: cephALEXin 500 MG CAP PO SCH ×2 (08:57→20:07)
[2023-01-19] MEDS: FUROSEMIDE 40 MG TAB PO SCH (08:57)
[2023-01-19] MEDS: GABAPENTIN 100 MG CAP PO SCH ×2 (08:57→20:07)
[2023-01-19] MEDS: METHENAMINE HIPPURATE 1 GM TAB PO SCH ×2 (08:57→20:06)
[2023-01-19] MEDS: SERTRALINE HCL 50 MG TABLET PO SCH (08:59)
[2023-01-19] MEDS: PANTOprazole 40 MG TAB PO SCH ×2 (08:59→20:07)
[2023-01-19] MEDS: VALSARTAN 80 MG TAB PO SCH (08:59)
--- NOTE | 2023-01-19 12:26 | Heart Failure Progress Note ---
Date of Service January 19, 2023 Assessment & Plan (1) Heart failure with mildly reduced ejection fraction (HFmrEF): (2) Hypertension: (3) Aortic stenosis: (4) Paroxysmal atrial fibrillation: (5) Cardiomyopathy: (6) Cardiac pacemaker: (7) CAD (coronary artery disease): Plan Chronic CHF with mid-range EF: Patient presented after a fall. She has no specific HF complaints at this time. She appears near euvolemic on exam. Weight is at her baseline. Multiple comorbidities likely contributing factor to her dyspnea/cough. Echocardiogram with mid-range EF and moderate to severe aortic stenosis. Continue Carvedilol and Valsartan. Patient is on supplemental O2 at night typically. Continue to wean as able while inpatient. Kidney function and electrolytes are stable. Will need to be careful not to over-diuresis with her . Continue Lasix 40 mg PO daily. Patient previously on 20 mg daily but with better dietary compliance. If she is consuming higher sodium foods at home may require 40 mg daily to maintain. Continue daily standing weights. Dry weight 104-106 lb. Increase to 40 mg daily for 2+ lb weight gain overnight or 5+lb in 1 week. Recommend low sodium diet, less than 2,000 mg daily. Could continue to revisit opportunities to further optimize her HF regimen as outpatient (Spironolactone/SGLT2i) however patient has preferred a conservative approach to treatment. Aortic stenosis: Moderate to severe. Her recent HF exacerbation likely due to dietary indiscretion/questionable medication adherence rather than . She is not interested in surgical intervention. If she continues to have worsening symptoms and frequent hospitalizations may be appropriate for hospice referral. Cardiomyopathy: Ischemic. Long standing. Continue GDMT. Pacemaker: Follows with Dr. Breaux Atrial fibrillation: Paroxysmal. Rate well controlled. Asymptomatic. Not on anticoagulation due to previous subarachnoid hemorrhage and subdural hematoma. More recently with frequent falls. Disposition: Continue close follow up with the heart failure program within 7 days of discharge. Follow up with Dr. Breaux as scheduled in February. Call with any problems, questions, or change in clinical status. Patient understood and agrees with the plan. Admission and Anticipated Discharge Date Admission Date: January 17, 2023 Subjective Patient reports feeling improved today. She's sitting up in the bedside chair. Shoulder pain is her biggest complaint, had injection yesterday. She continues on 2L supplemental O2. She slept well overnight with her head elevated. She has no edema. She continues to have a cough. She is essentially net neutral on I&Os but has unmeasured voids. Weight is trending up (bed scale). Physical Exam Physical Exam: Constitutional: Alert, oriented, in no acute distress. HEENT: Head is atraumatic and normocephalic. EOMs intact. Sclera anicteric. Face is symmetric. No perioral cyanosis. Mucous membranes dry. Neck: Supple, no JVD Pulmonary: Normal respiratory effort, decreased breath sounds throughout. Cardiac: Regular rate and rhythm. Normal S1 and S2, no gallops, no rubs. + 2/6 systolic murmur. Chest: Palpable left subclavian device Extremities: 2+ radial pulses bilaterally. 2+ posterior tibialis pulses bilaterally. No pitting edema. No cyanosis or clubbing. Right shoulder pain with ROM. Abdomen: Normal bowel sounds, soft, non-tender, no abdominal mass palpated Skin: Normal skin color, turgor, and pigmentation, no rash, no skin lesions Neurological: Patient is awake, alert, and oriented. Pleasant and cooperative. Answers questions appropriately. Speech is clear. Normal movement in all 4 extremities. Gait pattern not assessed. Results & Data Vital Signs (Past 12 Hours) Vital Signs Temp Pulse Pulse Resp BP Pulse Ox O2 Del Method 01/19/23 11:39 97.5 F L 60 17 111/58 L 99 Nasal Cannula 01/19/23 08:00 60 01/19/23 07:53 98.1 F 69 17 141/72 H 98 Nasal Cannula O2 Flow Rate 01/19/23 11:39 2 01/19/23 08:00 01/19/23 07:53 2 PG Care Time/CCT Total # of Minutes Spent Total Time Spent with Patient: Total time spent is greater than 50% in coordination of care (as documented) at patient's floor/unit and/or counseling patient: Coding Level of Care Code 32641 SUB INP/OBS CARE 3/50MIN Diagnoses Heart failure with mildly reduced ejection fraction (HFmrEF) I50.22 Hypertension I10 Aortic stenosis I35.0 Paroxysmal atrial fibrillation I48.0 Cardiomyopathy I42.9 Cardiac pacemaker Z95.0 Coronary artery disease of bypass graft of [place] heart with stable angina pectoris I25.708 Coronary Disease-Associated Artery/Lesion type: bypass graft [place] vs. transplanted heart: [place] heart Associated angina: with stable angina (7) CAD (coronary artery disease) Coronary Disease-Associated Artery/Lesion type: bypass graft [place] vs. transplanted heart: [place] heart Associated angina: with stable angina Qualifi ed Code(s): I25.708 - Atherosclerosis of coronary artery bypass graft(s), unspecified, with other forms of angina pectoris
[2023-01-19] MEDS: NEOMYCIN/POLYMYXIN/DEXAMETHA OP SOLN 5 ML BTL OPR SCH ×4 (12:27→20:08)
[2023-01-19] MEDS ORDERED: ONDANSETRON INJ 2 MG/ML 2 ML VIAL IV PRN (13:55)
--- NOTE | 2023-01-19 17:39 | Hospitalist Progress Note ---
Date of Service January 19, 2023 Assessment & Plan (1) Fall: Plan: Multiple falls in the last year per family they do not feel she is safe for discharge home at this time -- initially reported falling out of bed however subsequent day stated attempted to stand but legs weak/felt like giving out on her. CK wnl Biofire negative With UTI possibly contributing With right 5th posterior rib fracture and right shoulder pain PT/OT consulted and planning for rehab/SNF at discharge as unsafe to return home Not likely related to her severe No arrhythmias on tele except some paroxysmal afib on pacer interrogation Vitals here normal (2) Chronic combined systolic (congestive) and diastolic (congestive) heart failure: Plan: Acute on chronic combined systolic and diastolic CHF with severe aortic st enosis 2/2 dietary indiscretion, eating saltine crackers BNP 1243 CXR with pulm edema ECHO w/ EF 45-50%, severe aortic stenosis/mild mitral stenosis/mild mitral regurg Clinically seems improved after some IV lasix, less SOB Weights neutral -Continue carvedilol BID -Monitor weights /I&O -CHF clinic consulted -continue lasix 40mg PO daily -continue valsartan -O2 to keep sats>90%-can wean today (3) Urinary tract infection: Plan: - Urine cx w/ E. coli x 2 pansensitive. -Blood cxs obtained (following ER dose abx)-NGTD - dc ceftriaxone and change to po keflex to finish out 1 week course-last day tx 01/21/23 (4) Paroxysmal atrial fibrillation: Plan: Hx paroxysmal afib Pacemaker interrogation w/ afib >6hr x 2 days, one day appears almost completely in afib. Moved to telemetry for continued monitoring-in paced rhythm, normal rates Continue carvedilol Not on AC due to hemorrhage/subdural hematoma can move off tele (5) Rotator cuff tear arthropathy of right shoulder: Plan: Suspected - pain over AC joint with lack of shoulder movement Acetaminophen 1g TID Tramadol 50mg q4h PRN for breakthrough pain Right arm sling now discontinued Ortho consulted -now s/p injection on 01/18 with improvement but with ongoing pain add lidocaine patch for rib fracture pain PT/OT (6) Cough: Plan: Unclear cause but suspect CHF exacerbation as above (cause further eval as outlined). Biofire negative Resolved now with IV diuresis Speech consulted given choking w/ peaches here--> doing better with minced and moist diet, no s/s aspiration on their exam (7) Hypertension: Plan: BPs controlled Continue carvedilol and valsartan,Lasix 40mg PO daily Monitor (8) Aortic stenosis: Plan: Severe, similar on ECHO here to 2020 and 2021 Denies any dizziness, shortness of breath or chest pain prior to falling on admission but does have some presyncopal symptoms-follow up with Cardiolgoy (9) Diabetes mellitus: Plan: HbA1C 7.0 in November 2021, repeat 7.1 BSG AC/HS, sliding scale w/ loose CF/CR and will make adjustments as needed Plan VTE Prophylaxis -change to Lovenox for once daily dosing PT/OT evals --> family wanting rehab/placement, unsafe to return home. CM following awaiting rehab placement Medically stable for discharge Admission and Anticipated Discharge Date Admission Date: January 17, 2023 Anticipated date of discharge: 01/20/23 Subjective Pt still having right shoulder pain and pain in right side of mid back. Had some nausea today after taking pain medicine Otherwise feels her SOB is improved Tele with paced rhythm, rates 60s Physical Exam Constitutional: WD/WN, vitals as above Respiratory: normal respiratory effort, lungs clear to auscultation Cardiovascular: Rate/Rhythm: regular rate and regular rhythm Heart Sounds: + murmur (3/6 CHASTITY in RUSB) Extremities: no edema Gastrointestinal (Abdomen): normal bowel sounds, soft, nontender, no hepatos plenomegaly Musculoskeletal: +TTP over right posterior mid ribs Psychiatric: Orientation: alert, oriented to person, oriented to place and cooperative Results & Data Results & Data Vital Signs (Past 12 Hours) Vital Signs Temp Pulse Pulse Resp BP Pulse Ox O2 Del Method 01/19/23 16:11 36.8 C 84 17 158/67 H 99 Nasal Cannula 01/19/23 15:00 76 01/19/23 14:50 Nasal Cannula 01/19/23 14:17 95 Nasal Cannula 01/19/23 14:17 85 L Room Air 01/19/23 12:59 01/19/23 12:28 95 Room Air 01/19/23 11:39 36.4 C L 60 17 111/58 L 99 Nasal Cannula 01/19/23 08:00 60 01/19/23 07:53 36.7 C 69 17 141/72 H 98 Nasal Cannula O2 Flow Rate 01/19/23 16:11 1 01/19/23 15:00 01/19/23 14:50 1 01/19/23 14:17 1 01/19/23 14:17 01/19/23 12:59 2 01/19/23 12:28 01/19/23 11:39 2 01/19/23 08:00 01/19/23 07:53 2 Laboratory Results CBC, BMP, magnesium, Blood cxs reviewed PG Care Time/CCT Total # of Minutes Spent Total Time Spent with Patient: Total time spent is greater than 50% in coordination of care (as documented) at patient's floor/unit and/or counseling patient: Coding Level of Care Code 41698 SUB INP/OBS CARE Diagnoses Fall W19.XXXA Encounter type: initial encounter Chronic combined systolic (congestive) and diastolic (congestive) heart failure I50.42 Urinary tract infection N39.0 Paroxysmal atrial fibrillation I48.0 Rotator cuff tear arthropathy of right shoulder M75.101; M12.811 Cough R05.1 Cough type: acute Hypertension I10 Aortic stenosis I35.0 Type 2 diabetes mellitus without complication, with long-term current use of insulin E11.9; Z79.4 Diabetes mellitus type: type 2 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 insulin use: with termite control service representative use Diabetes mellitus complication status: without complication (1) Fall Encounter type: initial encounter Qualified Code(s): W19.XXXA - Unspecified fall, initial encounter (6) Cough Cough type: acute Qualified Code(s): R05.1 - Acute cough (9) Diabetes mellitus Diabetes mellitus type: type 2 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 insulin use: with termite control service representative use Diabetes mellitus complication status: without complication Qu alified Code(s): E11.9 - Type 2 diabetes mellitus without complications; Z79.4 - group home (current) use of insulin
[2023-01-19] MEDS: LOVASTATIN 20 MG TAB PO SCH (20:06)
[2023-01-19] MEDS ORDERED: ALBUT/IPRATROP 3MG/0.5MG NEB 3 ML VIAL INH PRN (20:50)
[2023-01-19] MEDS: ARTIFICIAL TEARS OP SCH (23:34)
[2023-01-20] MEDS: ACETAMINOPHEN 500 MG TAB PO SCH ×3 (06:27→21:09)
[2023-01-20 06:58] LABS: BUN Creatinine Ratio 41.7 (10-20); Calcium 9.6 mg/dl (8.6-10.3); Creatinine Clr Calc Pharmacy 20.8 ml/min; Est GFR (African American) 41.4 ml/min; Est GFR (Non-African American) 35.7 ml/min; Potassium 4.2 mmol/L (3.5-5.1)
[2023-01-20] MEDS: ARTIFICIAL TEARS OP SCH ×3 (08:24→21:06)
[2023-01-20] MEDS: carvediloL 12.5 MG TAB PO SCH ×2 (08:25→18:11)
[2023-01-20] MEDS: NEOMYCIN/POLYMYXIN/DEXAMETHA OP SOLN 5 ML BTL OPR SCH ×4 (08:25→21:05)
[2023-01-20] MEDS: SERTRALINE HCL 50 MG TABLET PO SCH (08:26)
[2023-01-20] MEDS: METHENAMINE HIPPURATE 1 GM TAB PO SCH ×2 (08:26→21:05)
[2023-01-20] MEDS: FUROSEMIDE 40 MG TAB PO SCH (08:26)
[2023-01-20] MEDS: PANTOprazole 40 MG TAB PO SCH ×2 (08:26→21:05)
[2023-01-20] MEDS: VALSARTAN 80 MG TAB PO SCH (08:26)
[2023-01-20] MEDS: GABAPENTIN 100 MG CAP PO SCH ×2 (08:27→21:04)
[2023-01-20] MEDS: cephALEXin 500 MG CAP PO SCH ×2 (08:27→21:03)
[2023-01-20] MEDS: ASPIRIN 81 MG ECTAB PO SCH (08:27)
[2023-01-20] MEDS: LIDOCAINE 5% 1 PATCH TD SCH (08:28)
[2023-01-20] MEDS: CALCIUM 600MG + VIT D 400 IU TAB PO SCH (08:28)
[2023-01-20] MEDS: ENOXAPARIN INJ 30 MG/0.3 ML SYR SQ SCH (08:28)
[2023-01-20] MEDS: INSULIN ASPART PER UNIT CHARGE SC SCH ×4 (09:54→21:08)
[2023-01-20] MEDS: traMADol HCL 50 MG TABLET PO PRN ×2 (10:36→21:17)
[2023-01-20] MEDS ORDERED: ONDANSETRON INJ 2 MG/ML 2 ML VIAL IV STA (15:10)
--- NOTE | 2023-01-20 15:14 | Hospitalist Progress Note ---
Date of Service January 20, 2023 Assessment & Plan (1) Fall: Plan: Multiple falls in the last year per family they do not feel she is safe for discharge home at this time -- initially reported falling out of bed however subsequent day stated attempted to stand but legs weak/felt like giving out on her. CK wnl Biofire negative With UTI possibly contributing With right 5th posterior rib fracture and right shoulder pain PT/OT consulted and planning for rehab/SNF at discharge as unsafe to return home Not likely related to her severe No arrhythmias on tele except some paroxysmal afib on pacer interrogation- transferred off tele Vitals here normal (2) Chronic combined systolic (congestive) and diastolic (congestive) heart failure: Plan: Acute on chronic combined systolic and diastolic CHF with severe aortic stenosis 2/2 dietary indiscretion, eating saltine crackers BNP 1243 CXR with pulm edema ECHO w/ EF 45-50%, severe aortic stenosis/mild mitral stenosis/mild mitral regurg Clinically seems improved after some IV lasix, less SOB, remains with some cough which could be from COPD. 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 coli x 2 pansensitive. -Blood cxs obtained (following ER dose abx)-NGTD - dc ceftriaxone and change to po keflex to finish out 1 week course-last day tx 01/21/23 (4) Paroxysmal atrial fibrillation: Plan: Hx paroxysmal afib Pacemaker interrogation w/ afib >6hr x 2 days, one day appears almost completely in afib. Moved to telemetry for continued monitoring-in paced rhythm, normal rates. Since transferred off tele Continue carvedilol Not on AC due to hemorrhage/subdural hematoma (5) Rotator cuff tear arthropathy of right shoulder: Plan: Suspected - pain over AC joint with lack of shoulder movement Acetaminophen 1g TID Tramadol 50mg q4h PRN for breakthrough pain which does cause some nausea-Zofran prn Right arm sling now discontinued Ortho consulted -now s/p injection on 01/18 with improvement but with ongoing pain added lidocaine patch for rib fracture pain PT/OT (6) Cough: Plan: Unclear cause but suspect CHF exacerbation as above (cause further eval as outlined). Could also be related to COPD Biofire negative Improved now with IV diuresis but some rhonchi Speech consulted given choking w/ peaches here--> doing better with minced and moist diet, no s/s aspiration on their exam Make nebs scheduled bid like she takes at home as per family (7) Hypertension: Plan: BPs controlled Continue carvedilol and valsartan,Lasix 40mg PO daily Monitor (8) Aortic stenosis: Plan: Severe, similar on ECHO here to 2020 and 2021 Denies any dizziness, shortness of breath or chest pain prior to falling on admission but does have some presyncopal symptoms-follow up with Cardiolgoy (9) Diabetes mellitus: Plan: HbA1C 7.0 in November 2021, repeat 7.1 BSG AC/HS, sliding scale w/ loose CF/CR and will make adjustments as needed Plan VTE Prophylaxis - Lovenox PT/OT evals --> family wanting rehab/placement, unsafe to return home. CM following awaiting rehab placement Medically stable for discharge SPoke with daughter, son, and multiple grandchildren at bedside Admission and Anticipated Discharge Date Admission Date: January 17, 2023 Subjective Pt reports ongoing pain in right shoulder and feeling nauseated. Sh eis noted by her granddaughter at bedside to be a little more lethargic today but she did take a tramadol a few hours ago. Family also asks about her cough and if she is getting neb treatments Physical Exam Constitutional: WD/WN, vitals as above Respiratory: normal respiratory effort and + cough Auscultation: + rhonchi; no crackles and no wheezes Cardiovascular: Rate/Rhythm: regular rate and regular rhythm Heart Sounds: + murmur (3/6 CHASTITY in RUSB) Extremities: no edema Gastrointestinal (Abdomen): normal bowel sounds, soft, nontender, no hepatosplenomegaly Psychiatric: Orientation: alert, oriented to person, oriented to place and cooperative Results & Data Results & Data Vital Signs (Past 12 Hours) Vital Signs Temp Pulse Resp BP Pulse Ox O2 Del Method O2 Flow Rate 01/20/23 08:20 Nasal Cannula 1 01/20/23 08:00 36.6 C 75 16 132/62 96 Nasal Cannula 1 Laboratory Results BMP, blood cxs reviewed PG Care Time/CCT Total # of Minutes Spent Total Time Spent with Patient: Total time spent is greater than 50% in coordination of care (as documented) at patient's floor/unit and/or counseling patient: Coding Level of Care Code 39847 SUB INP/OBS CARE 2/35MIN Diagnoses Fall W19.XXXA Encounter type: initial encounter Chronic combined systolic (congestive) and diastolic (congestive) heart failure I50.42 Urinary tract infection N39.0 Paroxysmal atrial fibrillation I48.0 Rotator cuff tear arthropathy of right shoulder M75.101; M12.811 Cough R05.1 Cough type: acute Hypertension I10 Aortic stenosis I35.0 Type 2 diabetes mellitus without complication, with long-term current use of insulin E11.9; Z79.4 Diabetes mellitus type: type 2 Diabetes mellitus technician terminal and repeater insulin use: with technician terminal and repeater use Diabetes mellitus complication status: without complication (1) Fall Encounter type: initial encounter Qualified Code(s): W19.XXXA - Unspecified fall, initial encounter (6) Cough Cough type: acute Qualified Code(s): R05.1 - Acute cough (9) Diabetes mellitus Diabetes mellitus type: type 2 Diabetes mellitus technician terminal and repeater insulin use: with care home use Diabetes mellitus complication status: without complication Qualified Code(s): E11.9 - Type 2 diabetes mellitus without complications; Z79.4 - exterminator termite (current) use of insulin
[2023-01-20] MEDS: ALBUT/IPRATROP 3MG/0.5MG NEB 3 ML VIAL INH SCH (20:09)
[2023-01-20] MEDS: CALCITRIOL 0.25 MCG CAPSULE PO SCH (21:03)
[2023-01-20] MEDS: LOVASTATIN 20 MG TAB PO SCH (21:05)
[2023-01-21] MEDS: ACETAMINOPHEN 500 MG TAB PO SCH ×3 (06:25→21:05)
[2023-01-21] MEDS: ALBUT/IPRATROP 3MG/0.5MG NEB 3 ML VIAL INH SCH ×2 (07:16→19:42)
[2023-01-21] MEDS: ARTIFICIAL TEARS OP SCH ×3 (08:34→21:02)
[2023-01-21] MEDS: carvediloL 12.5 MG TAB PO SCH ×2 (08:35→17:15)
[2023-01-21] MEDS: CALCIUM 600MG + VIT D 400 IU TAB PO SCH (08:35)
[2023-01-21] MEDS: LIDOCAINE 5% 1 PATCH TD SCH (08:35)
[2023-01-21] MEDS: NEOMYCIN/POLYMYXIN/DEXAMETHA OP SOLN 5 ML BTL OPR SCH ×4 (08:35→21:03)
[2023-01-21] MEDS: ASPIRIN 81 MG ECTAB PO SCH (08:39)
[2023-01-21] MEDS: GABAPENTIN 100 MG CAP PO SCH ×2 (08:41→21:03)
[2023-01-21] MEDS: SERTRALINE HCL 50 MG TABLET PO SCH (08:41)
[2023-01-21] MEDS: FUROSEMIDE 40 MG TAB PO SCH (08:41)
[2023-01-21] MEDS: VALSARTAN 80 MG TAB PO SCH (08:41)
[2023-01-21] MEDS: PANTOprazole 40 MG TAB PO SCH ×2 (08:42→21:02)
[2023-01-21] MEDS: METHENAMINE HIPPURATE 1 GM TAB PO SCH ×2 (08:42→21:03)
[2023-01-21] MEDS: ENOXAPARIN INJ 30 MG/0.3 ML SYR SQ SCH (08:42)
[2023-01-21] MEDS: INSULIN ASPART PER UNIT CHARGE SC SCH ×4 (09:35→20:39)
--- NOTE | 2023-01-21 16:52 | Hospitalist Progress Note ---
Date of Service January 21, 2023 Assessment & Plan (1) Fall: Plan: Multiple falls in the last year per family they do not feel she is safe for discharge home at this time -- initially reported falling out of bed however subsequent day stated attempted to stand but legs weak/felt like giving out on her. CK wnl Biofire negative With UTI possibly contributing With right 5th posterior rib fracture and right shoulder pain form the fall PT/OT consulted and planning for rehab/SNF at discharge as unsafe to return home Not likely related to her severe No arrhythmias on tele except some paroxysmal afib on pacer interrogation- transferred off tele Vitals here normal (2) Chronic combined systolic (congestive) and diastolic (congestive) heart failure: Plan: Acute on chronic combined systolic and diastolic CHF with severe aortic stenosis 2/2 dietary indiscretion, eating saltine crackers BNP 1243 CXR with pulm edema ECHO w/ EF 45-50%, severe aortic stenosis/mild mitral stenosis/mild mitral reg urg Clinically seems improved after some IV lasix, less SOB, remains with some cough which could be from COPD. 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 coli x 2 pansensitive. -Blood cxs obtained (following ER dose abx)-NGTD - dc ceftriaxone and changed to po keflex to finish out 1 week course-last day tx 01/21/23 (4) Paroxysmal atrial fibrillation: Plan: Hx paroxysmal afib Pacemaker interrogation w/ afib >6hr x 2 days, one day appears almost completely in afib. Moved to telemetry for continued monitoring-in paced rhythm, normal rates. Since transferred off tele Continue carvedilol Not on AC due to hemorrhage/subdural hematoma (5) Rotator cuff tear arthropathy of right shoulder: Plan: Suspected - pain over AC joint with lack of shoulder movement Ortho consulted -now s/p injection on 01/18 with improvement but with ongoing pain Acetaminophen 1g TID Tramadol 50mg q4h PRN for breakthrough pain which does cause some nausea-Zofran prn Right arm sling now discontinued added lidocaine patch for rib fracture pain PT/OT (6) Cough: Plan: Unclear cause but suspect CHF exacerbation as above (cause further eval as outlined). Could also be related to COPD Biofire negative Improved now with IV diuresis , rhonchi improving Speech consulted given choking w/ peaches here--> doing better with minced and moist diet, no s/s aspiration on their exam Continue nebs scheduled bid like she takes at home as per family (7) Hypertension: Plan: BPs controlled Continue carvedilol and valsartan,Lasix 40mg PO daily Monitor (8) Aortic stenosis: Plan: Severe, similar on ECHO here to 2020 and 2021 Denies any dizziness, shortness of breath or chest pain prior to falling on admission but does have some presyncopal symptoms-follow up with Cardiolgoy (9) Diabetes mellitus: Plan: HbA1C 7.0 in November 2021, repeat 7.1 BSG AC/HS, sliding scale w/ loose CF/CR and will make adjustments as needed Plan VTE Prophylaxis - Lovenox PT/OT evals --> family wanting rehab/placement, unsafe to return home. CM following awaiting rehab placement Medically stable for discharge Admission and Anticipated Discharge Date Admission Date: January 17, 2023 Subjective Pt again reports today that she is "rotten." Slept well overnight. Still has the same pain in her right shoulder. Still some cough. No BM in a few days, requests something for that. Is OOB to chair, eating meals. AMbulates w/ 1 assist to the bathroom Physical Exam Constitutional: WD/WN, vitals as above Respiratory: normal respiratory effort, lungs clear to auscultation normal respiratory effort and + cough Auscultation: no crackles, no rhonchi and no wheezes Cardiovascular: Rate/Rhythm: regular rate and regular rhythm Heart Sounds: + murmur (3/6 CHASTITY in RUSB) Extremities: no edema Gastrointestinal (Abdomen): normal bowel sounds, soft, nontender, no hepatosplenomegaly Psychiatric: Orientation: alert, oriented to person, oriented to place and cooperative Results & Data Results & Data Vital Signs (Past 12 Hours) Vital Signs Temp Pulse Resp BP Pulse Ox O2 Del Method O2 Flow Rate 01/21/23 15:41 36.1 C L 66 18 138/65 94 Room Air 01/21/23 09:45 Room Air 01/21/23 07:47 36.5 C 58 L 18 175/76 H 100 Nasal Cannula 2 01/21/23 07:16 55 L 16 96 Nasal Cannula 2 Laboratory Results no labs PG Care Time/CCT Total # of Minutes Spent Total Time Spent with Patient: Total time spent is greater than 50% in coordination of care (as documented) at patient's floor/unit and/or counseling patient: Coding Level of Care Code 90711 SUB INP/OBS CARE Diagnoses Fall W19.XXXA Encounter type: initial encounter Chronic combined systolic (congestive) and diastolic (congestive) heart failure I50.42 Urinary tract infection N39.0 Paroxysmal atrial fibrillation I48.0 Rotator cuff tear arthropathy of right shoulder M75.101; M12.811 Cough R05.1 Cough type: acute Hypertension I10 Aortic stenosis I35.0 Type 2 diabetes mellitus without complication, with long-term current use of insulin E11.9; Z79.4 Diabetes mellitus complication status: without complication Diabetes mellitus senior living insulin use: with senior living use Diabetes mellitus type: type 2 (1) Fall Encounter type: initial encounter Qualified Code(s): W19.XXXA - Unspecified fall, initial encounter (6) Cough Cough type: acute Qualified Code(s): R05.1 - Acute cough (9) Diabetes mellitus Diabetes mellitus complication status: without complication Diabetes mellitus senior living insulin use: with moth exterminator use Diabetes mellitus type: type 2 Qualified Code(s): E11.9 - Type 2 diabetes mellitus without complications; Z79.4 - termite inspector (current) use of insulin
[2023-01-21] MEDS: DOCUSATE SODIUM/SENNA 50/8.6MG TAB PO SCH (17:15)
[2023-01-21] MEDS: LOVASTATIN 20 MG TAB PO SCH (21:03)
[2023-01-21] MEDS: traMADol HCL 50 MG TABLET PO PRN (21:05)
[2023-01-22] MEDS: ACETAMINOPHEN 500 MG TAB PO SCH ×3 (05:46→21:51)
[2023-01-22] MEDS: ALBUT/IPRATROP 3MG/0.5MG NEB 3 ML VIAL INH SCH ×2 (07:05→20:03)
[2023-01-22 07:08] LABS: Basophils # (auto) 0.05 K/uL (0.00-0.20); Basophils % (auto) 0.6 %; Eosinophils % (auto) 1.2 %; Hematocrit (blood only) 36.7 % (37.0-47.0); Hemoglobin 12.2 g/dl (12.0-16.0); Immature Granulocytes # (auto) 0.08 K/uL (0.01-0.20); Lymphocytes # (auto) 2.82 K/uL (1.20-3.40); Lymphocytes % (auto) 35.1 %; Mean Corpuscular Hemoglobin 29.6 pg (25.0-34.0); Mean Corpuscular Hgb Conc 33.2 g/dL (32.0-36.0); Mean Corpuscular Volume 89.1 fL (80.0-100.0); Mean Platelet Volume 11.2 fL (9.4-12.4); Monocytes # (auto) 0.38 K/uL (0.11-0.59); Monocytes % (auto) 4.7 %; Neutrophils % (auto) 57.4 %; Platelet Count 191 K/uL (130-400); RDW Coefficient of Variation 13.6 % (11.5-14.5); RDW Standard Deviation 44.2 fL (36.4-46.3); Red Blood Count 4.12 M/uL (4.20-5.40); White Blood Count 8.03 K/ul (4.8-10.8)
[2023-01-22 08:17] LABS: Creatinine Clr Calc Pharmacy 22.3 ml/min; Est GFR (Non-African American) 38.9 ml/min; Potassium 4.2 mmol/L (3.5-5.1)
[2023-01-22] MEDS: PANTOprazole 40 MG TAB PO SCH ×2 (09:21→21:47)
[2023-01-22] MEDS: METHENAMINE HIPPURATE 1 GM TAB PO SCH ×2 (09:21→21:48)
[2023-01-22] MEDS: DOCUSATE SODIUM/SENNA 50/8.6MG TAB PO SCH (09:22)
[2023-01-22] MEDS: carvediloL 12.5 MG TAB PO SCH ×2 (09:22→18:09)
[2023-01-22] MEDS: FUROSEMIDE 40 MG TAB PO SCH (09:23)
[2023-01-22] MEDS: ASPIRIN 81 MG ECTAB PO SCH (09:23)
[2023-01-22] MEDS: CALCIUM 600MG + VIT D 400 IU TAB PO SCH (09:23)
[2023-01-22] MEDS: SERTRALINE HCL 50 MG TABLET PO SCH (09:24)
[2023-01-22] MEDS: VALSARTAN 80 MG TAB PO SCH (09:24)
[2023-01-22] MEDS: GABAPENTIN 100 MG CAP PO SCH ×2 (09:25→21:49)
[2023-01-22] MEDS: ENOXAPARIN INJ 30 MG/0.3 ML SYR SQ SCH (09:28)
[2023-01-22] MEDS: ARTIFICIAL TEARS OP SCH ×2 (09:29→18:08)
[2023-01-22] MEDS: LIDOCAINE 5% 1 PATCH TD SCH (09:31)
[2023-01-22] MEDS: NEOMYCIN/POLYMYXIN/DEXAMETHA OP SOLN 5 ML BTL OPR SCH ×4 (09:33→21:49)
[2023-01-22] MEDS: INSULIN ASPART PER UNIT CHARGE SC SCH ×4 (09:46→21:47)
--- NOTE | 2023-01-22 16:53 | Hospitalist Progress Note ---
Date of Service January 22, 2023 Assessment & Plan (1) Fall: Plan: Multiple falls in the last year per family they do not feel she is safe for discharge home at this time -- initially reported falling out of bed however subsequent day stated attempted to stand but legs weak/felt like giving out on her. CK wnl, Biofire negative With UTI possibly contributing Not likely related to her severe No arrhythmias on tele except some paroxysmal afib on pacer interrogation- transferred off tele Vitals here normal With right 5th posterior rib fracture and right shoulder pain from the fall PT/OT consulted and planning for rehab/SNF at discharge as unsafe to return home (2) Chronic combined systolic (congestive) and diastolic (congestive) heart failure: Plan: Acute on chronic combined systolic and diastolic CHF with severe aortic stenosis 2/2 dietary indiscretion, eating saltine crackers BNP 1243, CXR with pulm edema ECHO w/ EF 45-50%, severe aortic stenosis/mild mitral stenosis/mild mitral regurg Clinically improved after IV lasix and now on p.o. Lasix, no further SOB, remains with some cough which could be from COPD. No edema BUN rising today-decrease Lasix back to 20 mg p.o. daily -Continue carvedilol BID -Monitor weights /I&O -CHF clinic consulted -continue lasix but decrease to 20 mg PO daily -continue valsartan -O2 to keep sats>90%-can wean off as tolerated (3) Urinary tract infection: Plan: -Urine cx w/ E. coli x 2 pansensitive. -Blood cxs obtained-negative -Received ceftriaxone and changed to po keflex to finish out 1 week course- completed (4) Paroxysmal atrial fibrillation: Plan: Hx paroxysmal afib Pacemaker interrogation w/ afib >6hr x 2 days, one day appears almost completely in afib. Moved to telemetry for continued monitoring-in paced rhythm, normal rates. Since transferred off tele Continue carvedilol Not on AC due to hemorrhage/subdural hematoma (5) Rotator cuff tear arthropathy of right shoulder: Plan: Suspected - pain over AC joint with lack of shoulder movement Ortho consulted -now s/p injection on 01/18 finally with improvement in pain on 01/22 Acetaminophen 1g TID Tramadol 50mg q4h PRN for breakthrough pain which does cause some nausea-Zofran prn Right arm sling now discontinued added lidocaine patch for rib fracture pain PT/OT (6) Cough: Plan: Unclear cause but suspect CHF exacerbation as above (cause further eval as outlined). Could also be related to COPD Biofire negative Improved now with IV diuresis , rhonchi improving Speech consulted given choking w/ peaches here--> doing better with minced and moist diet, no s/s aspiration on their exam Continue nebs scheduled bid like she takes at home as per family (7) Hypertension: Plan: BPs controlled Continue carvedilol and valsartan,Lasix 40mg PO daily Monitor (8) Aortic stenosis: Plan: Severe, similar on ECHO here to 2020 and 2021 Denies any dizziness, shortness of breath or chest pain prior to falling on admission but does have some presyncopal symptoms-follow up with Cardiolgoy (9) Diabetes mellitus: Plan: HbA1C 7.0 in November 2021, repeat 7.1 BSG AC/HS, sliding scale w/ loose CF/CR and will make adjustments as needed Plan VTE Prophylaxis - Lovenox PT/OT evals --> family wanting rehab/placement, unsafe to return home. CM follow ing awaiting rehab placement Medically stable for discharge Admission and Anticipated Discharge Date Admission Date: January 17, 2023 Subjective Patient reports no pain in the right shoulder today. She has no other concerns. Physical Exam Constitutional: WD/WN, vitals as above Respiratory: normal respiratory effort, lungs clear to auscultation Cardiovascular: Rate/Rhythm: regular rate and regular rhythm Heart Sounds: + murmur (3/6 CHASTITY in RUSB) Extremities: no edema Gastrointestinal (Abdomen): normal bowel sounds, soft, nontender, no hepatosplenomegaly Psychiatric: Orientation: alert, oriented to person, oriented to place and cooperative Results & Data Results & Data Vital Signs (Past 12 Hours) Vital Signs Temp Pulse Resp BP Pulse Ox O2 Del Method 01/22/23 15:14 36.5 C 66 16 135/77 96 Room Air 01/22/23 11:07 36.5 C 65 16 123/69 94 Room Air 01/22/23 10:49 Room Air 01/22/23 07:40 36.6 C 60 16 117/65 99 Room Air 01/22/23 07:05 62 16 94 Room Air Laboratory Results CBC, BMP, magnesium reviewed PG Care Time/CCT Total # of Minutes Spent Total Time Spent with Patient: Total time spent is greater than 50% in coordination of care (as documented) at patient's floor/unit and/or counseling patient: Coding Level of Care Code 67433 SUB INP/OBS CARE 03/09MIN Diagnoses Fall W19.XXXA Encounter type: initial encounter Chronic combined systolic (congestive) and diastolic (congestive) heart failure I50.42 Urinary tract infection N39.0 Paroxysmal atrial fibrillation I48.0 Rotator cuff tear arthropathy of right shoulder M75.101; M12.811 Cough R05.1 Cough type: acute Hypertension I10 Aortic stenosis I35.0 Type 2 diabetes mellitus without complication, with long-term current use of insulin E11.9; Z79.4 Diabetes mellitus complication status: without complication Diabetes mellitus chcf insulin use: with hand stripper use Diabetes mellitus type: type 2 (1) Fall Encounter type: initial encounter Qualified Code(s): W19.XXXA - Unspecified fall, initial encounter (6) Cough Cough type: acute Qualified Code(s): R05.1 - Acute cough (9) Diabetes mellitus Diabetes mellitus complication status: without complication Diabetes mellitus chcf insulin use: with hand stripper use Diabetes mellitus type: type 2 Qualified Code(s): E11.9 - Type 2 diabetes mellitus without complications; Z79.4 - store keeper (current) use of insulin
[2023-01-22] MEDS: LOVASTATIN 20 MG TAB PO SCH (21:47)
[2023-01-23] MEDS: ARTIFICIAL TEARS OP SCH ×3 (00:29→18:22)
[2023-01-23] MEDS: ACETAMINOPHEN 500 MG TAB PO SCH ×3 (06:12→21:21)
[2023-01-23] MEDS: ALBUT/IPRATROP 3MG/0.5MG NEB 3 ML VIAL INH SCH ×2 (07:19→20:09)
[2023-01-23] MEDS: DOCUSATE SODIUM/SENNA 50/8.6MG TAB PO SCH (09:06)
[2023-01-23] MEDS: NEOMYCIN/POLYMYXIN/DEXAMETHA OP SOLN 5 ML BTL OPR SCH ×4 (09:06→21:19)
[2023-01-23] MEDS: SERTRALINE HCL 50 MG TABLET PO SCH (09:07)
[2023-01-23] MEDS: METHENAMINE HIPPURATE 1 GM TAB PO SCH ×2 (09:07→21:17)
[2023-01-23] MEDS: CALCIUM 600MG + VIT D 400 IU TAB PO SCH (09:07)
[2023-01-23] MEDS: ASPIRIN 81 MG ECTAB PO SCH (09:07)
[2023-01-23] MEDS: VALSARTAN 80 MG TAB PO SCH (09:07)
[2023-01-23] MEDS: PANTOprazole 40 MG TAB PO SCH ×2 (09:07→21:17)
[2023-01-23] MEDS: GABAPENTIN 100 MG CAP PO SCH ×2 (09:07→21:18)
[2023-01-23] MEDS: FUROSEMIDE 20 MG TAB PO SCH (09:07)
[2023-01-23] MEDS: LIDOCAINE 5% 1 PATCH TD SCH (09:08)
[2023-01-23] MEDS: ENOXAPARIN INJ 30 MG/0.3 ML SYR SQ SCH (09:12)
[2023-01-23] MEDS: INSULIN ASPART PER UNIT CHARGE SC SCH ×4 (09:14→21:18)
[2023-01-23] MEDS: carvediloL 12.5 MG TAB PO SCH ×2 (12:48→18:24)
--- NOTE | 2023-01-23 14:50 | Hospitalist Progress Note ---
Date of Service January 23, 2023 Assessment & Plan (1) Fall: Plan: Supportive care. Continue OT and PT. CK wnl, Biofire negative With UTI possibly contributing Not likely related to her severe No arrhythmias on tele except some paroxysmal afib on pacer interrogation- transferred off tele Vitals here normal With right 5th posterior rib fracture and right shoulder pain from the fall PT/OT consulted and planning for rehab/SNF at discharge as unsafe to return home (2) Rib fracture: Plan: Right fifth posterior fracture suffered and falling at home. Pain control measures. (3) Chronic combined systolic (congestive) and diastolic (congestive) heart failure: Plan: Acute on chronic combined systolic and diastolic CHF present on admission. Associated with with severe aortic stenosis. Resolved with parenteral Lasix therapy. Now on oral Lasix. Cardiac echo reveals ejection fraction of 45 to 50% with severe aortic stenosis. Continue carvedilol and valsartan. Monitor intake and output. (4) Urinary tract infection: Plan: E. coli isolated. She completed her course of antibiotics. Blood cultures are negative. (5) Paroxysmal atrial fibrillation: Plan: With PPM. Telemetry. Stable with current medical management. Not on AC due to history of hemorrhage/subdural hematoma (6) Rotator cuff tear arthropathy of right shoulder: Plan: Ortho consult and recommendations appreciated. She received a shoulder injection on January 18. Continue pain control measures. (7) Hypertension: Plan: Stable. Continue carvedilol and valsartan. (8) Aortic stenosis: Plan: Severe, similar on ECHO here to 2020 and 2021. No intervention necessary at this time. She may be a candidate for TAVR procedure at a later date (9) Diabetes mellitus: Plan: ADA diet. Sliding scale insulin coverage. Continue current medical management Plan Awaiting discharge to SNF or [facility]. Medically stable for discharge Admission and Anticipated Discharge Date Admission Date: January 17, 2023 Subjective Alert and oriented. No distress. Son is at the bedside. Oxygen has been discontinued. Awaiting placement Review of Systems 2 Review of Systems: Constitutional-no fever or chills ENT-no blurred vision, no double vision, no epistaxis, no sore throat Respiratory-no cough, no wheezing, no shortness of breath Cardiac-no palpitations, no chest pain, no syncope GI-no nausea, vomiting, diarrhea, melena, hematochezia -no urinary retention, no urinary incontinence, no dysuria, no hematuria Musculoskeletal-no joint pain, no muscle tenderness Skin-no bruising, no rashes, no pruritus Neuro-no isolated weakness, no paresthesia, no weakness Psych-no depression, no anxiety Physical Exam 2 Physical Exam: General-alert and oriented x3, no fevers, no chills HEENT-head atraumatic and normocephalic, pupils equal and reactive to light, extraocular muscles intact Neck-no lymphadenopathy or thyromegaly, trachea midline Chest-clear to auscultation percussion. No rales wheezing or rhonchi Cardiac-regular rate and rhythm, normal S1 and S2 Abdomen-normal bowel sounds, nontender, no hepatosplenomegaly Extremities-no cyanosis, clubbing, or edema Neuro-cranial nerves II through XII intact, motor and sensory function within normal limits, strength symmetrical, no focal deficits Psych-normal affect, normal mood Results & Data Results & Data Vital Signs (Past 12 Hours) Vital Signs Temp Pulse Pulse Resp BP Pulse Ox O2 Del Method 01/23/23 09:33 Room Air, Nasal Cannula 01/23/23 08:17 36.7 C 57 L 16 125/67 95 Nasal Cannula 01/23/23 07:20 66 18 96 Nasal Cannula O2 Flow Rate 01/23/23 09:33 01/23/23 08:17 2 01/23/23 07:20 2 Laboratory Results 01/22/23 05:47 01/22/23 05:47 PG Care Time/CCT Total # of Minutes Spent Total Time Spent with Patient: Total time spent is greater than 50% in coordination of care (as documented) at patient's floor/unit and/or counseling patient: Coding Level of Care Code 12843 SUB INP/OBS CARE 3/50MIN Diagnoses Fall W19.XXXA Encounter type: initial encounter Rib fracture S22.39XA Chronic combined systolic (congestive) and diastolic (congestive) heart failure I50.42 Urinary tract infection N39.0 Paroxysmal atrial fibrillation I48.0 Rotator cuff tear arthropathy of right shoulder M75.101; M12.811 Hypertension I10 Aortic stenosis I35.0 Type 2 diabetes mellitus without complication, with long-term current use of insulin E11.9; Z79.4 Diabetes mellitus type: type 2 Diabetes mellitus half-way insulin use: with half-way use Diabetes mellitus complication status: without complication (1) Fall Encounter type: initial encounter Qualified Code(s): W19.XXXA - Unspecified fall, initial encounter (9) Diabetes mellitus Diabetes mellitus type: type 2 Diabetes mellitus half-way insulin use: with half-way use Diabetes mellitus complication status: without complication Qualified Code(s): E11.9 - Type 2 diabetes mellitus without complications; Z79.4 - long term care administrator (current) use of insulin
[2023-01-23] MEDS: LOVASTATIN 20 MG TAB PO SCH (21:17)
[2023-01-23] MEDS: CALCITRIOL 0.25 MCG CAPSULE PO SCH (21:17)
[2023-01-24] MEDS: ARTIFICIAL TEARS OP SCH ×4 (00:24→23:39)
[2023-01-24] MEDS: ACETAMINOPHEN 500 MG TAB PO SCH ×3 (06:37→20:11)
[2023-01-24] MEDS: ALBUT/IPRATROP 3MG/0.5MG NEB 3 ML VIAL INH SCH ×2 (07:35→19:59)
[2023-01-24] MEDS: NEOMYCIN/POLYMYXIN/DEXAMETHA OP SOLN 5 ML BTL OPR SCH ×4 (08:42→20:13)
[2023-01-24] MEDS: DOCUSATE SODIUM/SENNA 50/8.6MG TAB PO SCH (08:43)
[2023-01-24] MEDS: PANTOprazole 40 MG TAB PO SCH ×2 (08:43→20:13)
[2023-01-24] MEDS: SERTRALINE HCL 50 MG TABLET PO SCH (08:43)
[2023-01-24] MEDS: carvediloL 12.5 MG TAB PO SCH ×2 (08:43→18:30)
[2023-01-24] MEDS: ASPIRIN 81 MG ECTAB PO SCH (08:43)
[2023-01-24] MEDS: GABAPENTIN 100 MG CAP PO SCH ×2 (08:43→20:12)
[2023-01-24] MEDS: CALCIUM 600MG + VIT D 400 IU TAB PO SCH (08:43)
[2023-01-24] MEDS: METHENAMINE HIPPURATE 1 GM TAB PO SCH ×2 (08:43→20:12)
[2023-01-24] MEDS: FUROSEMIDE 20 MG TAB PO SCH (08:43)
[2023-01-24] MEDS: ENOXAPARIN INJ 30 MG/0.3 ML SYR SQ SCH (08:44)
[2023-01-24] MEDS: LIDOCAINE 5% 1 PATCH TD SCH (08:44)
[2023-01-24] MEDS: VALSARTAN 80 MG TAB PO SCH (08:44)
[2023-01-24] MEDS: INSULIN ASPART PER UNIT CHARGE SC SCH ×4 (09:41→20:28)
--- NOTE | 2023-01-24 12:21 | Hospitalist Progress Note ---
Date of Service January 24, 2023 Assessment & Plan (1) Fall: Plan: Supportive care. Continue OT and PT. (2) Rib fracture: Plan: Right fifth posterior fracture suffered and falling at home. Pain control measures. (3) Chronic combined systolic (congestive) and diastolic (congestive) heart failure: Plan: Acute on chronic combined systolic and diastolic CHF present on admission. Associated with with severe aortic stenosis. Resolved with parenteral Lasix therapy. Now on oral Lasix. Cardiac echo reveals ejection fraction of 45 to 50% with severe aortic stenosis. Continue carvedilol and valsartan. Monitor intake and output. (4) Urinary tract infection: Plan: E. coli isolated. She completed her course of antibiotics. Blood cultures are negative. (5) Paroxysmal atrial fibrillation: Plan: With PPM. Telemetry. Stable with current medical management. Not on AC due to history of hemorrhage/subdural hematoma (6) Rotator cuff tear arthropathy of right shoulder: Plan: Ortho consult and recommendations appreciated. She received a shoulder injection on January 18. Continue pain control measures. (7) Hypertension: Plan: Stable. Continue carvedilol and valsartan. (8) Aortic stenosis: Plan: Severe, similar on ECHO here to 2020 and 2021. No intervention necessary at this time. She may be a candidate for TAVR procedure at a later date (9) Diabetes mellitus: Plan: ADA diet. Sliding scale insulin coverage. Continue current medical management Plan Awaiting discharge to [facility]. Medically stable Admission and Anticipated Discharge Date Admission Date: January 17, 2023 Subjective Alert and oriented. No distress. She is now on room air. [id number] glucose 180 which is acceptable. Placement at [facility] pending. Review of Systems 2 Review of Systems: Constitutional-no fever or chills ENT-no blurred vision, no double vision, no epistaxis, no sore throat Respiratory-no cough, no wheezing, no shortness of breath Cardiac-no palpitations, no chest pain, no syncope GI-no nausea, vomiting, diarrhea, melena, hematochezia -no urinary retention, no urinary incontinence, no dysuria, no hematuria Musculoskeletal-no joint pain, no muscle tenderness Skin-no bruising, no rashes, no pruritus Neuro-no isolated weakness, no paresthesia, no weakness Psych-no depression, no anxiety Physical Exam 2 Physical Exam: General-alert and oriented x3, no fevers, no chills HEENT-head atraumatic and normocephalic, pupils equal and reactive to light, extraocular muscles intact Neck-no lymphadenopathy or thyromegaly, trachea midline Chest-clear to auscultation percussion. No rales wheezing or rhonchi Cardiac-regular rate and rhythm, normal S1 and S2 Abdomen-normal bowel sounds, nontender, no hepatosplenomegaly Extremities-no cyanosis, clubbing, or edema Neuro-cranial nerves II through XII intact, motor and sensory function within normal limits, strength symmetrical, no focal deficits Psych-normal affect, normal mood Results & Data Results & Data Vital Signs (Past 12 Hours) Vital Signs Temp Pulse Resp BP Pulse Ox O2 Del Method 01/24/23 08:38 Room Air 01/24/23 07:36 61 18 91 Room Air 01/24/23 03:17 36.6 C 61 20 109/54 L 93 Room Air Laboratory Results 01/22/23 05:47 01/22/23 05:47 PG Care Time/CCT Total # of Minutes Spent Total Time Spent with Patient: Total time spent is greater than 50% in coordination of care (as documented) at patient's floor/unit and/or counseling patient: Coding Level of Care Code 65527 SUB INP/OBS CARE 2MIN Diagnoses Fall W19.XXXA Encounter type: initial encounter Rib fracture S22.39XA Chronic combined systolic (congestive) and diastolic (congestive) heart failure I50.42 Urinary tract infection N39.0 Paroxysmal atrial fibrillation I48.0 Rotator cuff tear arthropathy of right shoulder M75.101; M12.811 Hypertension I10 Aortic stenosis I35.0 Type 2 diabetes mellitus without complication, with long-term current use of insulin E11.9; Z79.4 Diabetes mellitus type: type 2 Diabetes mellitus long term acute care registered nurse insulin use: with mcfp use Diabetes mellitus complication status: without complication (1) Fall Encounter type: initial encounter Qualified Code(s): W19.XXXA - Unspecified fall, initial encounter (9) Diabetes mellitus Diabetes mellitus type: type 2 Diabetes mellitus long term acute care registered nurse insulin use: with mcfp use Diabetes mellitus complication status: without complication Qualified Code(s): E11.9 - Type 2 diabetes mellitus without complications; Z79.4 - 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
[2023-01-24] MEDS ORDERED: bisacodyL 10 MG SUPP PR STA (19:52)
[2023-01-24] MEDS: SENNA 8.6 MG TAB PO SCH (20:11)
[2023-01-24] MEDS: POLYETHYLENE (MIRALAX) 17 GM PACK PO SCH (20:11)
[2023-01-24] MEDS: LOVASTATIN 20 MG TAB PO SCH (20:12)
[2023-01-25] MEDS: ACETAMINOPHEN 500 MG TAB PO SCH ×3 (05:37→22:45)
[2023-01-25 07:50] LABS: Creatinine Clr Calc Pharmacy 20.3 ml/min; Est GFR (African American) 40.2 ml/min; Est GFR (Non-African American) 34.7 ml/min
[2023-01-25] MEDS: ALBUT/IPRATROP 3MG/0.5MG NEB 3 ML VIAL INH SCH ×2 (07:52→19:48)
[2023-01-25] MEDS: FUROSEMIDE 20 MG TAB PO SCH (08:10)
[2023-01-25] MEDS: METHENAMINE HIPPURATE 1 GM TAB PO SCH ×2 (08:10→20:20)
[2023-01-25] MEDS: PANTOprazole 40 MG TAB PO SCH ×2 (08:10→20:20)
[2023-01-25] MEDS: ARTIFICIAL TEARS OP SCH ×3 (08:10→22:45)
[2023-01-25] MEDS: ASPIRIN 81 MG ECTAB PO SCH (08:10)
[2023-01-25] MEDS: CALCIUM 600MG + VIT D 400 IU TAB PO SCH (08:10)
[2023-01-25] MEDS: carvediloL 12.5 MG TAB PO SCH ×2 (08:10→17:08)
[2023-01-25] MEDS: LIDOCAINE 5% 1 PATCH TD SCH (08:11)
[2023-01-25] MEDS: ENOXAPARIN INJ 30 MG/0.3 ML SYR SQ SCH (08:11)
[2023-01-25] MEDS: GABAPENTIN 100 MG CAP PO SCH ×2 (08:11→20:20)
[2023-01-25] MEDS: VALSARTAN 80 MG TAB PO SCH (08:11)
[2023-01-25] MEDS: DOCUSATE SODIUM/SENNA 50/8.6MG TAB PO SCH (08:11)
[2023-01-25] MEDS: SERTRALINE HCL 50 MG TABLET PO SCH (08:11)
[2023-01-25] MEDS: SENNA 8.6 MG TAB PO SCH (08:12)
[2023-01-25] MEDS: NEOMYCIN/POLYMYXIN/DEXAMETHA OP SOLN 5 ML BTL OPR SCH ×4 (08:13→20:20)
[2023-01-25] MEDS: POLYETHYLENE (MIRALAX) 17 GM PACK PO SCH (08:16)
[2023-01-25] MEDS: INSULIN ASPART PER UNIT CHARGE SC SCH ×4 (08:18→20:29)
--- NOTE | 2023-01-25 11:17 | Hospitalist Progress Note ---
Date of Service January 25, 2023 Assessment & Plan (1) Fall: Plan: Supportive care. Continue OT and PT. (2) Rib fracture: Plan: Right fifth posterior rib fracture suffered due to falling at home. Pain control measures. (3) Chronic combined systolic (congestive) and diastolic (congestive) heart failure: Plan: Acute on chronic combined systolic and diastolic CHF present on admission. Associated with with severe aortic stenosis. Resolved with parenteral Lasix therapy. Now on oral Lasix. Cardiac echo reveals ejection fraction of 45 to 50% with severe aortic stenosis. Continue carvedilol and valsartan. Monitor intake and output. (4) Urinary tract infection: Plan: E. coli isolated. She completed her course of antibiotics. Blood cultures are negative. (5) Paroxysmal atrial fibrillation: Plan: With PPM. Telemetry. Stable with current medical management. Not on AC due to history of hemorrhage/subdural hematoma (6) Rotator cuff tear arthropathy of right shoulder: Plan: Ortho consult and recommendations appreciated. She received a shoulder injection on January 18. Continue pain control measures. (7) Hypertension: Plan: Stable. Continue carvedilol and valsartan. (8) Aortic stenosis: Plan: Severe, similar on ECHO here to 2020 and 2021. No intervention necessary at this time. She may be a candidate for TAVR procedure at a later date (9) Diabetes mellitus: Plan: ADA diet. Sliding scale insulin coverage. Continue current medical management Plan Awaiting discharge to [facility]. Medically stable Admission and Anticipated Discharge Date Admission Date: January 17, 2023 Subjective Alert and oriented. No distress. Family members are visiting. Awaiting discharge to [facility]. Review of Systems 2 Review of Systems: Constitutional-no fever or chills ENT-no blurred vision, no double vision, no epistaxis, no sore throat Respiratory-no cough, no wheezing, no shortness of breath Cardiac-no palpitations, no chest pain, no syncope GI-no nausea, vomiting, diarrhea, melena, hematochezia -no urinary retention, no urinary incontinence, no dysuria, no hematuria Musculoskeletal-no joint pain, no muscle tenderness Skin-no bruising, no rashes, no pruritus Neuro-no isolated weakness, no paresthesia, no weakness Psych-no depression, no anxiety Physical Exam 2 Physical Exam: General-alert and oriented x3, no fevers, no chills HEENT-head atraumatic and normocephalic, pupils equal and reactive to light, extraocular muscles intact Neck-no lymphadenopathy or thyromegaly, trachea midline Chest-clear to auscultation percussion. No rales wheezing or rhonchi Cardiac-regular rate and rhythm, normal S1 and S2 Abdomen-normal bowel sounds, nontender, no hepatosplenomegaly Extremities-no cyanosis, clubbing, or edema Neuro-cranial nerves II through XII intact, motor and sensory function within normal limits, strength symmetrical, no focal deficits Psych-normal affect, normal mood Results & Data Results & Data Vital Signs (Past 12 Hours) Vital Signs Temp Pulse Resp BP Pulse Ox O2 Del Method 01/25/23 08:10 36.8 C 61 16 110/65 96 Room Air 01/25/23 07:52 68 18 95 Room Air 01/24/23 23:40 Room Air Laboratory Results 01/22/23 05:47 01/25/23 07:00 PG Care Time/CCT Total # of Minutes Spent Total Time Spent with Patient: Total time spent is greater than 50% in coordination of care (as documented) at patient's floor/unit and/or counseling patient: Coding Level of Care Code 02417 SUB INP/OBS CARE 2/35MIN Diagnoses Fall W19.XXXA Encounter type: initial encounter Rib fracture S22.39XA Chronic combined systolic (congestive) and diastolic (congestive) heart failure I50.42 Urinary tract infection N39.0 Paroxysmal atrial fibrillation I48.0 Rotator cuff tear arthropathy of right shoulder M75.101; M12.811 Hypertension I10 Aortic stenosis I35.0 Type 2 diabetes mellitus without complication, with long-term current use of insulin E11.9; Z79.4 Diabetes mellitus type: type 2 Diabetes mellitus intermediate card tender insulin use: with intermediate card tender use Diabetes mellitus complication status: without complication (1) Fall Encounter type: initial encounter Qualified Code(s): W19.XXXA - Unspecified fall, initial encounter (9) Diabetes mellitus Diabetes mellitus type: type 2 Diabetes mellitus intermediate card tender insulin use: with intermediate card tender use Diabetes mellitus complication status: without complication Qualified Code(s): E11.9 - Type 2 diabetes mellitus without complications; Z79.4 - retirement (current) use of insulin
[2023-01-25] MEDS: CALCITRIOL 0.25 MCG CAPSULE PO SCH (20:20)
[2023-01-25] MEDS: LOVASTATIN 20 MG TAB PO SCH (20:20)
[2023-01-26] MEDS: ACETAMINOPHEN 500 MG TAB PO SCH ×3 (05:48→21:08)
[2023-01-26] MEDS: ALBUT/IPRATROP 3MG/0.5MG NEB 3 ML VIAL INH SCH (07:12)
[2023-01-26] MEDS: PANTOprazole 40 MG TAB PO SCH ×2 (08:15→21:09)
[2023-01-26] MEDS: ARTIFICIAL TEARS OP SCH ×2 (08:15→16:56)
[2023-01-26] MEDS: carvediloL 12.5 MG TAB PO SCH ×2 (08:15→16:56)
[2023-01-26] MEDS: ASPIRIN 81 MG ECTAB PO SCH (08:15)
[2023-01-26] MEDS: METHENAMINE HIPPURATE 1 GM TAB PO SCH ×2 (08:15→21:08)
[2023-01-26] MEDS: FUROSEMIDE 20 MG TAB PO SCH (08:16)
[2023-01-26] MEDS: SENNA 8.6 MG TAB PO SCH (08:16)
[2023-01-26] MEDS: LIDOCAINE 5% 1 PATCH TD SCH (08:16)
[2023-01-26] MEDS: SERTRALINE HCL 50 MG TABLET PO SCH (08:16)
[2023-01-26] MEDS: VALSARTAN 80 MG TAB PO SCH (08:16)
[2023-01-26] MEDS: CALCIUM 600MG + VIT D 400 IU TAB PO SCH (08:16)
[2023-01-26] MEDS: ENOXAPARIN INJ 30 MG/0.3 ML SYR SQ SCH (08:16)
[2023-01-26] MEDS: GABAPENTIN 100 MG CAP PO SCH ×2 (08:16→21:08)
[2023-01-26] MEDS: NEOMYCIN/POLYMYXIN/DEXAMETHA OP SOLN 5 ML BTL OPR SCH ×4 (08:17→21:08)
[2023-01-26] MEDS: INSULIN ASPART PER UNIT CHARGE SC SCH ×4 (08:18→20:51)
[2023-01-26] MEDS: POLYETHYLENE (MIRALAX) 17 GM PACK PO SCH (08:28)
[2023-01-26] MEDS: DOCUSATE SODIUM/SENNA 50/8.6MG TAB PO SCH (08:28)
[2023-01-26] MEDS ORDERED: ALBUT/IPRATROP 3MG/0.5MG NEB 3 ML VIAL INH PRN (09:27)
--- NOTE | 2023-01-26 12:43 | Hospitalist Progress Note ---
Date of Service January 26, 2023 Assessment & Plan (1) Fall: Plan: Supportive care. Continue OT and PT. (2) Rib fracture: Plan: Right fifth posterior rib fracture suffered due to falling at home. Pain control measures. (3) Chronic combined systolic (congestive) and diastolic (congestive) heart failure: Plan: Acute on chronic combined systolic and diastolic CHF present on admission. Associated with with severe aortic stenosis. Resolved with parenteral Lasix therapy. Now on oral Lasix. Cardiac echo reveals ejection fraction of 45 to 50% with severe aortic stenosis. Continue carvedilol and valsartan. Monitor intake and output. (4) Urinary tract infection: Plan: E. coli isolated. She completed her course of antibiotics. Blood cultures are negative. (5) Paroxysmal atrial fibrillation: Plan: With PPM. Telemetry. Stable with current medical management. Not on AC due to history of hemorrhage/subdural hematoma (6) Rotator cuff tear arthropathy of right shoulder: Plan: Ortho consult and recommendations appreciated. She received a shoulder injection on January 18. Continue pain control measures. (7) Hypertension: Plan: Stable. Continue carvedilol and valsartan. (8) Aortic stenosis: Plan: Severe, similar on ECHO here to 2020 and 2021. No intervention necessary at this time. She may be a candidate for TAVR procedure at a later date (9) Diabetes mellitus: Plan: ADA diet. Sliding scale insulin coverage. Continue current medical management Plan Awaiting discharge to [facility]. Medically stable Admission and Anticipated Discharge Date Admission Date: January 17, 2023 Subjective Alert and oriented. Pleasant. No new problems. Medically stable. Review of Systems 2 Review of Systems: Constitutional-no fever or chills ENT-no blurred vision, no double vision, no epistaxis, no sore throat Respiratory-no cough, no wheezing, no shortness of breath Cardiac-no palpitations, no chest pain, no syncope GI-no nausea, vomiting, diarrhea, melena, hematochezia -no urinary retention, no urinary incontinence, no dysuria, no hematuria Musculoskeletal-no joint pain, no muscle tenderness Skin-no bruising, no rashes, no pruritus Neuro-no isolated weakness, no paresthesia, no weakness Psych-no depression, no anxiety Physical Exam 2 Physical Exam: General-alert and oriented x3, no fevers, no chills HEENT-head atraumatic and normocephalic, pupils equal and reactive to light, extraocular muscles intact Neck-no lymphadenopathy or thyromegaly, trachea midline Chest-clear to auscultation percussion. No rales wheezing or rhonchi Cardiac-regular rate and rhythm, normal S1 and S2 Abdomen-normal bowel sounds, nontender, no hepatosplenomegaly Extremities-no cyanosis, clubbing, or edema Neuro-cranial nerves II through XII intact, motor and sensory function within normal limits, strength symmetrical, no focal deficits Psych-normal affect, normal mood Results & Data Results & Data Vital Signs (Past 12 Hours) Vital Signs Temp Pulse Pulse Resp BP Pulse Ox O2 Del Method 01/26/23 08:00 Room Air 01/26/23 07:57 36.5 C 60 16 122/75 98 Room Air 01/26/23 07:12 73 16 98 Room Air Laboratory Results 01/22/23 05:47 01/25/23 07:00 PG Care Time/CCT Total # of Minutes Spent Total Time Spent with Patient: Total time spent is greater than 50% in coordination of care (as documented) at patient's floor/unit and/or counseling patient: Coding Level of Care Code 27679 SUB INP/OBS CARE 2/35MIN Diagnoses Fall W19.XXXA Encounter type: initial encounter Rib fracture S22.39XA Chronic combined systolic (congestive) and diastolic (congestive) heart failure I50.42 Urinary tract infection N39.0 Paroxysmal atrial fibrillation I48.0 Rotator cuff tear arthropathy of right shoulder M75.101; M12.811 Hypertension I10 Aortic stenosis I35.0 Type 2 diabetes mellitus without complication, with long-term current use of insulin E11.9; Z79.4 Diabetes mellitus type: type 2 Diabetes mellitus usp insulin use: with usp use Diabetes mellitus complication status: without complication (1) Fall Encounter type: initial encounter Qualified Code(s): W19.XXXA - Unspecified fall, initial encounter (9) Diabetes mellitus Diabetes mellitus type: type 2 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
[2023-01-26] MEDS: LOVASTATIN 20 MG TAB PO SCH (21:08)
[2023-01-27] MEDS: ARTIFICIAL TEARS OP SCH ×3 (00:24→17:04)
[2023-01-27] MEDS: ACETAMINOPHEN 500 MG TAB PO SCH ×3 (05:51→20:34)
[2023-01-27] MEDS: VALSARTAN 80 MG TAB PO SCH (08:14)
[2023-01-27] MEDS: ASPIRIN 81 MG ECTAB PO SCH (08:14)
[2023-01-27] MEDS: carvediloL 12.5 MG TAB PO SCH ×2 (08:14→17:05)
[2023-01-27] MEDS: GABAPENTIN 100 MG CAP PO SCH ×2 (08:14→20:30)
[2023-01-27] MEDS: PANTOprazole 40 MG TAB PO SCH ×2 (08:14→20:29)
[2023-01-27] MEDS: CALCIUM 600MG + VIT D 400 IU TAB PO SCH (08:14)
[2023-01-27] MEDS: SENNA 8.6 MG TAB PO SCH (08:14)
[2023-01-27] MEDS: FUROSEMIDE 20 MG TAB PO SCH (08:14)
[2023-01-27] MEDS: METHENAMINE HIPPURATE 1 GM TAB PO SCH ×2 (08:15→20:30)
[2023-01-27] MEDS: LIDOCAINE 5% 1 PATCH TD SCH (08:15)
[2023-01-27] MEDS: SERTRALINE HCL 50 MG TABLET PO SCH (08:15)
[2023-01-27] MEDS: DOCUSATE SODIUM/SENNA 50/8.6MG TAB PO SCH (08:16)
[2023-01-27] MEDS: NEOMYCIN/POLYMYXIN/DEXAMETHA OP SOLN 5 ML BTL OPR SCH ×4 (08:35→20:30)
[2023-01-27] MEDS: INSULIN ASPART PER UNIT CHARGE SC SCH ×4 (08:39→20:34)
[2023-01-27] MEDS: POLYETHYLENE (MIRALAX) 17 GM PACK PO SCH (08:40)
[2023-01-27] MEDS: ENOXAPARIN INJ 30 MG/0.3 ML SYR SQ SCH (08:40)
--- NOTE | 2023-01-27 11:45 | Hospitalist Progress Note ---
Date of Service January 27, 2023 Assessment & Plan (1) Fall: Plan: Supportive care. Continue OT and PT. (2) Rib fracture: Plan: Right fifth posterior rib fracture suffered due to falling at home. Pain control measures. (3) Chronic combined systolic (congestive) and diastolic (congestive) heart failure: Plan: Acute on chronic combined systolic and diastolic CHF present on admission. Associated with with severe aortic stenosis. Resolved with parenteral Lasix therapy. Now on oral Lasix. Cardiac echo reveals ejection fraction of 45 to 50% with severe aortic stenosis. Continue carvedilol and valsartan. Monitor intake and output. (4) Urinary tract infection: Plan: E. coli isolated. She completed her course of antibiotics. Blood cultures negative. (5) Paroxysmal atrial fibrillation: Plan: With PPM. Telemetry. Stable with current medical management. Not on AC due to history of hemorrhage/subdural hematoma (6) Rotator cuff tear arthropathy of right shoulder: Plan: Ortho consult and recommendations appreciated. She received a shoulder injection on January 18. Continue pain control measures. (7) Hypertension: Plan: Stable. Continue carvedilol and valsartan. (8) Aortic stenosis: Plan: Severe, similar on ECHO here to 2020 and 2021. No intervention necessary at this time. She may be a candidate for TAVR procedure at a later date (9) Diabetes mellitus: Plan: ADA diet. Sliding scale insulin coverage. Continue current medical management Plan Awaiting discharge to [facility]. Medically stable Admission and Anticipated Discharge Date Admission Date: January 17, 2023 Subjective Alert. Medically stable. No new problems Review of Systems 2 Review of Systems: Constitutional-no fever or chills ENT-no blurred vision, no double vision, no epistaxis, no sore throat Respiratory-no cough, no wheezing, no shortness of breath Cardiac-no palpitations, no chest pain, no syncope GI-no nausea, vomiting, diarrhea, melena, hematochezia -no urinary retention, no urinary incontinence, no dysuria, no hematuria Musculoskeletal-no joint pain, no muscle tenderness Skin-no bruising, no rashes, no pruritus Neuro-no isolated weakness, no paresthesia, no weakness Psych-no depression, no anxiety Physical Exam 2 Physical Exam: General-alert and oriented x3, no fevers, no chills HEENT-head atraumatic and normocephalic, pupils equal and reactive to light, extraocular muscles intact Neck-no lymphadenopathy or thyromegaly, trachea midline Chest-clear to auscultation percussion. No rales wheezing or rhonchi Cardiac-regular rate and rhythm, normal S1 and S2 Abdomen-normal bowel sounds, nontender, no hepatosplenomegaly Extremities-no cyanosis, clubbing, or edema Neuro-cranial nerves II through XII intact, motor and sensory function within normal limits, strength symmetrical, no focal deficits Psych-normal affect, normal mood Results & Data Results & Data Vital Signs (Past 12 Hours) Vital Signs Temp Pulse Resp BP Pulse Ox O2 Del Method 01/27/23 07:47 36.6 C 66 18 153/63 H 95 Room Air Laboratory Results 01/22/23 05:47 01/25/23 07:00 PG Care Time/CCT Total # of Minutes Spent Total Time Spent with Patient: Total time spent is greater than 50% in coordination of care (as documented) at patient's floor/unit and/or counseling patient: Coding Level of Care Code 22168 SUB INP/OBS CARE 2/35MIN Diagnoses Fall W19.XXXA Encounter type: initial encounter Rib fracture S22.39XA Chronic combined systolic (congestive) and diastolic (congestive) heart failure I50.42 Urinary tract infection N39.0 Paroxysmal atrial fibrillation I48.0 Rotator cuff tear arthropathy of right shoulder M75.101; M12.811 Hypertension I10 Aortic stenosis I35.0 Type 2 diabetes mellitus without complication, with long-term current use of insulin E11.9; Z79.4 Diabetes mellitus type: type 2 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
[2023-01-27] MEDS: LOVASTATIN 20 MG TAB PO SCH (20:29)
[2023-01-27] MEDS: CALCITRIOL 0.25 MCG CAPSULE PO SCH (20:29)
[2023-01-28] MEDS: ARTIFICIAL TEARS OP SCH ×3 (01:02→17:10)
[2023-01-28] MEDS: ACETAMINOPHEN 500 MG TAB PO SCH ×3 (05:58→21:54)
[2023-01-28] MEDS: SERTRALINE HCL 50 MG TABLET PO SCH (08:03)
[2023-01-28] MEDS: PANTOprazole 40 MG TAB PO SCH ×2 (08:03→21:49)
[2023-01-28] MEDS: GABAPENTIN 100 MG CAP PO SCH ×2 (08:03→21:49)
[2023-01-28] MEDS: NEOMYCIN/POLYMYXIN/DEXAMETHA OP SOLN 5 ML BTL OPR SCH ×4 (08:04→21:49)
[2023-01-28] MEDS: ASPIRIN 81 MG ECTAB PO SCH (08:04)
[2023-01-28] MEDS: CALCIUM 600MG + VIT D 400 IU TAB PO SCH (08:04)
[2023-01-28] MEDS: METHENAMINE HIPPURATE 1 GM TAB PO SCH ×2 (08:04→21:49)
[2023-01-28] MEDS: SENNA 8.6 MG TAB PO SCH (08:04)
[2023-01-28] MEDS: carvediloL 12.5 MG TAB PO SCH ×2 (08:09→17:40)
[2023-01-28] MEDS: VALSARTAN 80 MG TAB PO SCH (08:09)
[2023-01-28] MEDS: FUROSEMIDE 20 MG TAB PO SCH (08:09)
[2023-01-28] MEDS: ENOXAPARIN INJ 30 MG/0.3 ML SYR SQ SCH (08:11)
[2023-01-28] MEDS: POLYETHYLENE (MIRALAX) 17 GM PACK PO SCH (08:12)
[2023-01-28] MEDS: DOCUSATE SODIUM/SENNA 50/8.6MG TAB PO SCH (08:12)
[2023-01-28] MEDS: LIDOCAINE 5% 1 PATCH TD SCH ×2 (08:12→19:13)
[2023-01-28] MEDS: INSULIN ASPART PER UNIT CHARGE SC SCH ×4 (08:13→21:53)
--- NOTE | 2023-01-28 12:31 | Hospitalist Progress Note ---
Date of Service January 28, 2023 Assessment & Plan (1) Fall: Plan: Supportive care. Continue OT and PT. (2) Rib fracture: Plan: Right fifth posterior rib fracture suffered due to falling at home. Pain control measures. (3) Chronic combined systolic (congestive) and diastolic (congestive) heart failure: Plan: Acute on chronic combined systolic and diastolic CHF present on admission. Associated with with severe aortic stenosis. Resolved with parenteral Lasix therapy. Now on oral Lasix. Cardiac echo reveals ejection fraction of 45 to 50% with severe aortic stenosis. Continue carvedilol and valsartan. Monitor intake and output. (4) Urinary tract infection: Plan: E. coli isolated. She completed her course of antibiotics. Blood cultures negative. (5) Paroxysmal atrial fibrillation: Plan: With PPM. Telemetry. Stable with current medical management. Not on AC due to history of hemorrhage/subdural hematoma (6) Rotator cuff tear arthropathy of right shoulder: Plan: Ortho consult and recommendations appreciated. She received a shoulder injection on January 18. Continue pain control measures. (7) Hypertension: Plan: Stable. Continue carvedilol and valsartan. (8) Aortic stenosis: Plan: Severe, similar on ECHO here to 2020 and 2021. No intervention necessary at this time. She may be a candidate for TAVR procedure at a later date (9) Diabetes mellitus: Plan: ADA diet. Sliding scale insulin coverage. Continue current medical management Plan Awaiting discharge to [facility]. Hopefully January 30. Medically stable Admission and Anticipated Discharge Date Admission Date: January 17, 2023 Subjective Alert. No distress. She repeatedly states that she wants to go home. She will go to [facility] at discharge, hopefully Monday Review of Systems 2 Review of Systems: Constitutional-no fever or chills ENT-no blurred vision, no double vision, no epistaxis, no sore throat Respiratory-no cough, no wheezing, no shortness of breath Cardiac-no palpitations, no chest pain, no syncope GI-no nausea, vomiting, diarrhea, melena, hematochezia -no urinary retention, no urinary incontinence, no dysuria, no hematuria Musculoskeletal-no joint pain, no muscle tenderness Skin-no bruising, no rashes, no pruritus Neuro-no isolated weakness, no paresthesia, no weakness Psych-no depression, no anxiety Physical Exam 2 Physical Exam: General-alert and oriented x3, no fevers, no chills HEENT-head atraumatic and normocephalic, pupils equal and reactive to light, extraocular muscles intact Neck-no lymphadenopathy or thyromegaly, trachea midline Chest-clear to auscultation percussion. No rales wheezing or rhonchi Cardiac-regular rate and rhythm, normal S1 and S2 Abdomen-normal bowel sounds, nontender, no hepatosplenomegaly Extremities-no cyanosis, clubbing, or edema Neuro-cranial nerves II through XII intact, motor and sensory function within normal limits, strength symmetrical, no focal deficits Psych-normal affect, normal mood Results & Data Results & Data Vital Signs (Past 12 Hours) Vital Signs Temp Pulse Resp BP Pulse Ox O2 Del Method 01/28/23 08:07 36.8 C 65 18 154/64 H 94 Room Air 01/28/23 08:00 Room Air Laboratory Results 01/22/23 05:47 01/25/23 07:00 PG Care Time/CCT Total # of Minutes Spent Total Time Spent with Patient: Total time spent is greater than 50% in coordination of care (as documented) at patient's floor/unit and/or counseling patient: Coding Level of Care Code 24673 SUB INP/OBS CARE 2/35MIN Diagnoses Fall W19.XXXA Encounter type: initial encounter Rib fracture S22.39XA Chronic combined systolic (congestive) and diastolic (congestive) heart failure I50.42 Urinary tract infection N39.0 Paroxysmal atrial fibrillation I48.0 Rotator cuff tear arthropathy of right shoulder M75.101; M12.811 Hypertension I10 Aortic stenosis I35.0 Type 2 diabetes mellitus without complication, with long-term current use of insulin E11.9; Z79.4 Diabetes mellitus type: type 2 Diabetes mellitus alf insulin use: with director long term care use Diabetes mellitus complication status: without complication (1) Fall Encounter type: initial encounter Qualified Code(s): W19.XXXA - Unspecified fall, initial encounter (9) Diabetes mellitus Diabetes mellitus type: type 2 Diabetes mellitus alf insulin use: with director long term care use Diabetes mellitus complication status: without complication Qualified Code(s): E11.9 - Type 2 diabetes mellitus without complications; Z79.4 - extermination inspector (current) use of insulin
[2023-01-28] MEDS: LOVASTATIN 20 MG TAB PO SCH (22:14)
[2023-01-29] MEDS: ARTIFICIAL TEARS OP SCH ×4 (00:45→21:33)
[2023-01-29] MEDS: ACETAMINOPHEN 500 MG TAB PO SCH ×3 (06:31→21:25)
[2023-01-29 06:58] LABS: Basophils # (auto) 0.05 K/uL (0.00-0.20); Basophils % (auto) 0.8 %; Eosinophils # (auto) 0.27 K/uL (0.00-0.50); Eosinophils % (auto) 4.1 %; Hematocrit (blood only) 36.6 % (37.0-47.0); Hemoglobin 12.2 g/dl (12.0-16.0); Immature Granulocytes # (auto) 0.04 K/uL (0.01-0.20); Immature Granulocytes % (auto) 0.6 %; Lymphocytes # (auto) 2.39 K/uL (1.20-3.40); Lymphocytes % (auto) 36.4 %; Mean Corpuscular Hgb Conc 33.3 g/dL (32.0-36.0); Mean Corpuscular Volume 90.1 fL (80.0-100.0); Mean Platelet Volume 11.6 fL (9.4-12.4); Monocytes # (auto) 0.29 K/uL (0.11-0.59); Monocytes % (auto) 4.4 %; Neutrophils # (auto) 3.52 K/uL (1.40-6.50); Neutrophils % (auto) 53.7 %; Platelet Count 175 K/uL (130-400); RDW Coefficient of Variation 14.1 % (11.5-14.5); RDW Standard Deviation 46.8 fL (36.4-46.3); Red Blood Count 4.06 M/uL (4.20-5.40); White Blood Count 6.56 K/ul (4.8-10.8)
[2023-01-29 07:28] LABS: Calcium 10.1 mg/dl (8.6-10.3); Creatinine Clr Calc Pharmacy 25.6 ml/min; Est GFR (African American) 53.3 ml/min; Potassium 3.9 mmol/L (3.5-5.1)
[2023-01-29] MEDS: PANTOprazole 40 MG TAB PO SCH ×2 (08:39→21:20)
[2023-01-29] MEDS: CALCIUM 600MG + VIT D 400 IU TAB PO SCH (08:39)
[2023-01-29] MEDS: METHENAMINE HIPPURATE 1 GM TAB PO SCH ×2 (08:39→21:19)
[2023-01-29] MEDS: LIDOCAINE 5% 1 PATCH TD SCH (08:39)
[2023-01-29] MEDS: SENNA 8.6 MG TAB PO SCH (08:39)
[2023-01-29] MEDS: ASPIRIN 81 MG ECTAB PO SCH (08:39)
[2023-01-29] MEDS: GABAPENTIN 100 MG CAP PO SCH ×2 (08:39→21:20)
[2023-01-29] MEDS: SERTRALINE HCL 50 MG TABLET PO SCH (08:39)
[2023-01-29] MEDS: POLYETHYLENE (MIRALAX) 17 GM PACK PO SCH (08:39)
[2023-01-29] MEDS: carvediloL 12.5 MG TAB PO SCH ×2 (08:39→17:20)
[2023-01-29] MEDS: NEOMYCIN/POLYMYXIN/DEXAMETHA OP SOLN 5 ML BTL OPR SCH ×4 (08:40→21:21)
[2023-01-29] MEDS: DOCUSATE SODIUM/SENNA 50/8.6MG TAB PO SCH (08:40)
[2023-01-29] MEDS: VALSARTAN 80 MG TAB PO SCH (08:40)
[2023-01-29] MEDS: ENOXAPARIN INJ 30 MG/0.3 ML SYR SQ SCH (08:41)
[2023-01-29] MEDS: FUROSEMIDE 20 MG TAB PO SCH (08:44)
[2023-01-29] MEDS: INSULIN ASPART PER UNIT CHARGE SC SCH ×4 (08:45→21:26)
--- NOTE | 2023-01-29 11:12 | Hospitalist Progress Note ---
Date of Service January 29, 2023 Assessment & Plan (1) Fall: Plan: Supportive care. Continue OT and PT. (2) Rib fracture: Plan: Right fifth posterior rib fracture suffered due to falling at home. Pain control measures. (3) Chronic combined systolic (congestive) and diastolic (congestive) heart failure: Plan: Acute on chronic combined systolic and diastolic CHF present on admission. Associated with with severe aortic stenosis. Resolved with parenteral Lasix therapy. Now on oral Lasix. Cardiac echo reveals ejection fraction of 45 to 50% with severe aortic stenosis. Continue carvedilol and valsartan. Monitor intake and output. (4) Urinary tract infection: Plan: E. coli isolated. She completed her course of antibiotics. Blood cultures negative. (5) Paroxysmal atrial fibrillation: Plan: With PPM. Telemetry. Stable with current medical management. Not on AC due to history of hemorrhage/subdural hematoma (6) Rotator cuff tear arthropathy of right shoulder: Plan: Ortho consult and recommendations appreciated. She received a shoulder injection on January 18. Continue pain control measures. (7) Hypertension: Plan: Stable. Continue carvedilol and valsartan. (8) Aortic stenosis: Plan: Severe, similar on ECHO here to 2020 and 2021. No intervention necessary at this time. She may be a candidate for TAVR procedure at a later date (9) Diabetes mellitus: Plan: ADA diet. Sliding scale insulin coverage. Continue current medical management Plan Awaiting discharge to [facility]. Hopefully January 30. Medically stable Admission and Anticipated Discharge Date Admission Date: January 17, 2023 Subjective Alert and oriented. No distress. Medically stable. Her son is at the bedside Review of Systems 2 Review of Systems: Constitutional-no fever or chills ENT-no blurred vision, no double vision, no epistaxis, no sore throat Respiratory-no cough, no wheezing, no shortness of breath Cardiac-no palpitations, no chest pain, no syncope GI-no nausea, vomiting, diarrhea, melena, hematochezia -no urinary retention, no urinary incontinence, no dysuria, no hematuria Musculoskeletal-no joint pain, no muscle tenderness Skin-no bruising, no rashes, no pruritus Neuro-no isolated weakness, no paresthesia, no weakness Psych-no depression, no anxiety Physical Exam 2 Physical Exam: General-alert and oriented x3, no fevers, no chills HEENT-head atraumatic and normocephalic, pupils equal and reactive to light, extraocular muscles intact Neck-no lymphadenopathy or thyromegaly, trachea midline Chest-clear to auscultation percussion. No rales wheezing or rhonchi Cardiac-regular rate and rhythm, normal S1 and S2 Abdomen-normal bowel sounds, nontender, no hepatosplenomegaly Extremities-no cyanosis, clubbing, or edema Neuro-cranial nerves II through XII intact, motor and sensory function within normal limits, strength symmetrical, no focal deficits Psych-normal affect, normal mood Results & Data Results & Data Vital Signs (Past 12 Hours) Vital Signs Temp Pulse Resp BP Pulse Ox O2 Del Method 01/29/23 09:00 Room Air 01/29/23 08:25 142/79 H 01/29/23 07:21 36.8 C 73 16 100/61 95 Room Air Laboratory Results 01/29/23 06:22 01/29/23 06:22 PG Care Time/CCT Total # of Minutes Spent Total Time Spent with Patient: Total time spent is greater than 50% in coordination of care (as documented) at patient's floor/unit and/or counseling patient: Coding Level of Care Code 91729 SUB INP/OBS CARE 235MIN Diagnoses Fall W19.XXXA Encounter type: initial encounter Rib fracture S22.39XA Chronic combined systolic (congestive) and diastolic (congestive) heart failure I50.42 Urinary tract infection N39.0 Paroxysmal atrial fibrillation I48.0 Rotator cuff tear arthropathy of right shoulder M75.101; M12.811 Hypertension I10 Aortic stenosis I35.0 Type 2 diabetes mellitus without complication, with long-term current use of insulin E11.9; Z79.4 Diabetes mellitus type: type 2 Diabetes mellitus group home insulin use: with meterman use Diabetes mellitus complication status: without complication (1) Fall Encounter type: initial encounter Qualified Code(s): W19.XXXA - Unspecified fall, initial encounter (9) Diabetes mellitus Diabetes mellitus type: type 2 Diabetes mellitus meterman insulin use: with meterman use Diabetes mellitus complication status: without complication Qualified Code(s): E11.9 - Type 2 diabetes mellitus without complications; Z79.4 - half-way (current) use of insulin
[2023-01-29] MEDS: LOVASTATIN 20 MG TAB PO SCH (21:19)
[2023-01-30] MEDS: ACETAMINOPHEN 500 MG TAB PO SCH ×3 (05:55→21:45)
[2023-01-30] MEDS: ARTIFICIAL TEARS OP SCH ×3 (07:50→21:48)
[2023-01-30] MEDS: carvediloL 12.5 MG TAB PO SCH ×2 (07:51→18:22)
[2023-01-30] MEDS: CALCIUM 600MG + VIT D 400 IU TAB PO SCH (07:52)
[2023-01-30] MEDS: METHENAMINE HIPPURATE 1 GM TAB PO SCH ×2 (07:52→21:43)
[2023-01-30] MEDS: GABAPENTIN 100 MG CAP PO SCH ×2 (07:52→21:44)
[2023-01-30] MEDS: VALSARTAN 80 MG TAB PO SCH (07:53)
[2023-01-30] MEDS: SENNA 8.6 MG TAB PO SCH (07:54)
[2023-01-30] MEDS: PANTOprazole 40 MG TAB PO SCH ×2 (07:55→21:44)
[2023-01-30] MEDS: SERTRALINE HCL 50 MG TABLET PO SCH (07:56)
[2023-01-30] MEDS: FUROSEMIDE 20 MG TAB PO SCH (07:56)
[2023-01-30] MEDS: LIDOCAINE 5% 1 PATCH TD SCH ×2 (07:57→09:10)
[2023-01-30] MEDS: ENOXAPARIN INJ 30 MG/0.3 ML SYR SQ SCH (07:57)
[2023-01-30] MEDS: ASPIRIN 81 MG ECTAB PO SCH (07:58)
[2023-01-30] MEDS: POLYETHYLENE (MIRALAX) 17 GM PACK PO SCH (08:04)
[2023-01-30] MEDS: NEOMYCIN/POLYMYXIN/DEXAMETHA OP SOLN 5 ML BTL OPR SCH ×4 (08:04→21:45)
[2023-01-30] MEDS: INSULIN ASPART PER UNIT CHARGE SC SCH ×4 (08:11→21:47)
[2023-01-30] MEDS: DOCUSATE SODIUM/SENNA 50/8.6MG TAB PO SCH (08:11)
--- NOTE | 2023-01-30 12:48 | Hospitalist Progress Note ---
Date of Service January 30, 2023 Assessment & Plan (1) Fall: Plan: Supportive care. Continue OT and PT. (2) Rib fracture: Plan: Right fifth posterior rib fracture suffered due to falling at home. Pain control measures. Right shoulder injected with steroids and pain much improved no longer needing tramadol (3) Chronic combined systolic (congestive) and diastolic (congestive) heart failure: Plan: Acute on chronic combined systolic and diastolic CHF present on admission. Associated with with severe aortic stenosis. Resolved with parenteral Lasix therapy. Now on oral Lasix. Cardiac echo reveals ejection fraction of 45 to 50% with severe aortic stenosis. Continue carvedilol and valsartan. Monitor intake and output. (4) Urinary tract infection: Plan: E. coli isolated. She completed her course of antibiotics. Blood cultures negative. (5) Paroxysmal atrial fibrillation: Plan: With PPM. Stable with current medical management. Not on AC due to history of hemorrhage/subdural hematoma (6) Rotator cuff tear arthropathy of right shoulder: Plan: Ortho consult and recommendations appreciated. She received a shoulder injection on January 18. Much improved on pain (7) Hypertension: Plan: Stable. Continue carvedilol and valsartan. (8) Aortic stenosis: Plan: Severe, similar on ECHO here to 2020 and 2021. No intervention necessary at this time. She may be a candidate for TAVR procedure at a later date (9) Diabetes mellitus: Plan: ADA diet. Sliding scale insulin coverage. Continue current medical management Plan DVT proph-Lovenox Dispo-medically stable for 10 days for discharge, discussed with Fixed Wing Aircraft Crew Chief who is making new referrals today as [facility] has no beds Admission and Anticipated Discharge Date Admission Date: January 17, 2023 Subjective Shoulder pain much better.Still has a cough Physical Exam Constitutional: WD/WN, vitals as above Respiratory: normal respiratory effort, lungs clear to auscultation normal respiratory effort; no cough Cardiovascular: Rate/Rhythm: regular rate and regular rhythm Heart Sounds: + murmur (3/6 CHASTITY in RUSB) Extremities: no edema Gastrointestinal (Abdomen): normal bowel sounds, soft, nontender, no hepatosplenomegaly Musculoskeletal: FROM right shoulder Psychiatric: Orientation: alert, oriented to person, oriented to place and cooperative Results & Data Results & Data Vital Signs (Past 12 Hours) Vital Signs Temp Pulse Resp BP Pulse Ox O2 Del Method 01/30/23 11:43 36.7 C 67 14 132/68 95 Room Air 01/30/23 07:25 Room Air 01/30/23 07:22 36.5 C 60 16 166/70 H 97 Room Air PG Care Time/CCT Total # of Minutes Spent Total Time Spent with Patient: Total time spent is greater than 50% in coordination of care (as documented) at patient's floor/unit and/or counseling patient: Coding Level of Care Code 08231 SUB INP/OBS CARE 03/09MIN Diagnoses Fall W19.XXXA Encounter type: initial encounter Rib fracture S22.39XA Chronic combined systolic (congestive) and diastolic (congestive) heart failure I50.42 Urinary tract infection N39.0 Paroxysmal atrial fibrillation I48.0 Rotator cuff tear arthropathy of right shoulder M75.101; M12.811 Hypertension I10 Aortic stenosis I35.0 Type 2 diabetes mellitus without complication, with long-term current use of insulin E11.9; Z79.4 Diabetes mellitus type: type 2 Diabetes mellitus terminal computer operator insulin use: with senior care use Diabetes mellitus complication status: without complication (1) Fall Encounter type: initial encounter Qualified Code(s): W19.XXXA - Unspecified fall, initial encounter (9) Diabetes mellitus Diabetes mellitus type: type 2 Diabetes mellitus senior care insulin use: with terminal computer operator use Diabetes mellitus complication status: without complication Qualified Code(s): E11.9 - Type 2 diabetes mellitus without complications; Z79.4 - supervisor intermediates (current) use of insulin
[2023-01-30] MEDS: LOVASTATIN 20 MG TAB PO SCH (21:44)
[2023-01-30] MEDS: CALCITRIOL 0.25 MCG CAPSULE PO SCH (21:44)
[2023-01-31] MEDS: ACETAMINOPHEN 500 MG TAB PO SCH ×3 (06:14→20:41)
[2023-01-31] MEDS: ARTIFICIAL TEARS OP SCH ×3 (08:24→22:42)
[2023-01-31] MEDS: PANTOprazole 40 MG TAB PO SCH ×2 (08:24→20:40)
[2023-01-31] MEDS: METHENAMINE HIPPURATE 1 GM TAB PO SCH ×2 (08:25→20:40)
[2023-01-31] MEDS: SENNA 8.6 MG TAB PO SCH (08:25)
[2023-01-31] MEDS: GABAPENTIN 100 MG CAP PO SCH ×2 (08:25→20:40)
[2023-01-31] MEDS: ASPIRIN 81 MG ECTAB PO SCH (08:25)
[2023-01-31] MEDS: SERTRALINE HCL 50 MG TABLET PO SCH (08:25)
[2023-01-31] MEDS: VALSARTAN 80 MG TAB PO SCH (08:25)
[2023-01-31] MEDS: ENOXAPARIN INJ 30 MG/0.3 ML SYR SQ SCH (08:26)
[2023-01-31] MEDS: CALCIUM 600MG + VIT D 400 IU TAB PO SCH (08:26)
[2023-01-31] MEDS: FUROSEMIDE 20 MG TAB PO SCH (08:26)
[2023-01-31] MEDS: INSULIN ASPART PER UNIT CHARGE SC SCH ×4 (08:46→22:41)
[2023-01-31] MEDS: LIDOCAINE 5% 1 PATCH TD SCH (09:20)
[2023-01-31] MEDS: DOCUSATE SODIUM/SENNA 50/8.6MG TAB PO SCH (09:20)
[2023-01-31] MEDS: carvediloL 12.5 MG TAB PO SCH ×2 (09:21→16:22)
[2023-01-31] MEDS: NEOMYCIN/POLYMYXIN/DEXAMETHA OP SOLN 5 ML BTL OPR SCH ×4 (09:23→20:41)
[2023-01-31] MEDS: POLYETHYLENE (MIRALAX) 17 GM PACK PO SCH (09:32)
[2023-01-31] MEDS ORDERED: guaiFENesin/DEXTROM SYRUP 100MG/10MG 5ML UDC PO ONE (10:29)
--- NOTE | 2023-01-31 19:09 | Hospitalist Progress Note ---
Date of Service January 31, 2023 Assessment & Plan (1) Fall: Plan: Supportive care. Continue OT and PT. (2) Rib fracture: Plan: Right fifth posterior rib fracture suffered due to falling at home. Pain control measures. Right shoulder injected with steroids and pain much improved no longer needing tramadol (3) Chronic combined systolic (congestive) and diastolic (congestive) heart failure: Plan: Acute on chronic combined systolic and diastolic CHF present on admission. Associated with with severe aortic stenosis. Resolved with parenteral Lasix therapy. Now on oral Lasix. Cardiac echo reveals ejection fraction of 45 to 50% with severe aortic stenosis. Continue carvedilol and valsartan. Monitor intake and output. with ongoing, lingering cough-start prn guaifenesin DM (4) Urinary tract infection: Plan: E. coli isolated. She completed her course of antibiotics. Blood cultures negative. (5) Paroxysmal atrial fibrillation: Plan: With PPM. Stable with current medical management. Not on AC due to history of hemorrhage/subdural hematoma (6) Rotator cuff tear arthropathy of right shoulder: Plan: Ortho consult and recommendations appreciated. She received a shoulder injection on January 18. Much improved on pain (7) Hypertension: Plan: Stable. Continue carvedilol and valsartan. (8) Aortic stenosis: Plan: Severe, similar on ECHO here to 2020 and 2021. No intervention necessary at this time. She may be a candidate for TAVR procedure at a later date (9) Diabetes mellitus: Plan: ADA diet. Sliding scale insulin coverage. Continue current medical management Plan DVT proph-Lovenox Dispo-medically stable for many days for discharge, awaiting placement Admission and Anticipated Discharge Date Admission Date: January 17, 2023 Subjective Patient denies any problems. She thinks her cough is better but says her family thinks it is not. Physical Exam Constitutional: WD/WN, vitals as above Respiratory: normal respiratory effort, lungs clear to auscultation Cardiovascular: Rate/Rhythm: regular rate and regular rhythm Heart Sounds: + murmur (3/6 CHASTITY in RUSB) Extremities: no edema Gastrointestinal (Abdomen): normal bowel sounds, soft, nontender, no hepatosplenomegaly Psychiatric: Orientation: alert, oriented to person, oriented to place and cooperative Results & Data Results & Data Vital Signs (Past 12 Hours) Vital Signs Temp Pulse Pulse Resp BP Pulse Ox O2 Del Method 01/31/23 16:20 62 20 147/72 H 96 Room Air 01/31/23 15:34 36.2 C L 62 14 125/72 98 Room Air 01/31/23 08:30 60 20 154/70 H 01/31/23 07:27 36.4 C L 60 16 160/73 H 95 Room Air 01/31/23 07:25 Room Air PG Care Time/CCT Total # of Minutes Spent Total Time Spent with Patient: Total time spent is greater than 50% in coordination of care (as documented) at patient's floor/unit and/or counseling patient: Coding Level of Care Code 20913 SUB INP/OBS CARE 03/09MIN Diagnoses Fall W19.XXXA Encounter type: initial encounter Rib fracture S22.39XA Chronic combined systolic (congestive) and diastolic (congestive) heart failure I50.42 Urinary tract infection N39.0 Paroxysmal atrial fibrillation I48.0 Rotator cuff tear arthropathy of right shoulder M75.101; M12.811 Hypertension I10 Aortic stenosis I35.0 Type 2 diabetes mellitus without complication, with long-term current use of insulin E11.9; Z79.4 Diabetes mellitus type: type 2 Diabetes mellitus fdc insulin use: with regional intermodal truck driver use Diabetes mellitus complication status: without complication (1) Fall Encounter type: initial encounter Qualified Code(s): W19.XXXA - Unspecified fall, initial encounter (9) Diabetes mellitus Diabetes mellitus type: type 2 Diabetes mellitus fdc insulin use: with regional intermodal truck driver use Diabetes mellitus complication status: without complication Qualified Code(s): E11.9 - Type 2 diabetes mellitus without complications; Z79.4 - termite renewal inspector (current) use of insulin
[2023-01-31] MEDS: guaiFENesin/DEXTROM SYRUP 100MG/10MG 5ML UDC PO PRN (20:40)
[2023-01-31] MEDS: LOVASTATIN 20 MG TAB PO SCH (20:40)
[2023-02-01] MEDS: ACETAMINOPHEN 500 MG TAB PO SCH ×3 (06:39→21:39)
[2023-02-01] MEDS: PANTOprazole 40 MG TAB PO SCH ×2 (08:42→21:39)
[2023-02-01] MEDS: ARTIFICIAL TEARS OP SCH ×2 (08:42→17:32)
[2023-02-01] MEDS: VALSARTAN 80 MG TAB PO SCH (08:42)
[2023-02-01] MEDS: METHENAMINE HIPPURATE 1 GM TAB PO SCH ×2 (08:42→21:32)
[2023-02-01] MEDS: CALCIUM 600MG + VIT D 400 IU TAB PO SCH (08:43)
[2023-02-01] MEDS: SENNA 8.6 MG TAB PO SCH (08:43)
[2023-02-01] MEDS: ASPIRIN 81 MG ECTAB PO SCH (08:43)
[2023-02-01] MEDS: SERTRALINE HCL 50 MG TABLET PO SCH (08:43)
[2023-02-01] MEDS: GABAPENTIN 100 MG CAP PO SCH ×2 (08:43→21:33)
[2023-02-01] MEDS: FUROSEMIDE 20 MG TAB PO SCH (08:43)
[2023-02-01] MEDS: LIDOCAINE 5% 1 PATCH TD SCH (08:44)
[2023-02-01] MEDS: ENOXAPARIN INJ 30 MG/0.3 ML SYR SQ SCH (08:44)
[2023-02-01] MEDS: guaiFENesin/DEXTROM SYRUP 100MG/10MG 5ML UDC PO PRN ×3 (08:44→21:31)
[2023-02-01] MEDS: NEOMYCIN/POLYMYXIN/DEXAMETHA OP SOLN 5 ML BTL OPR SCH ×4 (08:44→21:34)
[2023-02-01] MEDS: INSULIN ASPART PER UNIT CHARGE SC SCH ×4 (08:48→21:34)
[2023-02-01] MEDS: POLYETHYLENE (MIRALAX) 17 GM PACK PO SCH (08:52)
[2023-02-01] MEDS: DOCUSATE SODIUM/SENNA 50/8.6MG TAB PO SCH (08:52)
[2023-02-01] MEDS: carvediloL 12.5 MG TAB PO SCH ×2 (10:22→17:32)
--- NOTE | 2023-02-01 16:43 | Hospitalist Progress Note ---
Date of Service February 01, 2023 Assessment & Plan (1) Fall: Plan: Supportive care. Continue OT and PT. (2) Rib fracture: Plan: Right fifth posterior rib fracture suffered due to falling at home. Pain control measures. Right shoulder injected with steroids and pain much improved no longer needing tramadol (3) Chronic combined systolic (congestive) and diastolic (congestive) heart failure: Plan: Acute on chronic combined systolic and diastolic CHF present on admission. Associated with with severe aortic stenosis. Resolved with parenteral Lasix therapy. Now on oral Lasix. Cardiac echo reveals ejection fraction of 45 to 50% with severe aortic stenosis. Continue carvedilol and valsartan. Monitor intake and output. with ongoing, lingering cough-continue prn guaifenesin DM (4) Urinary tract infection: Plan: E. coli isolated. She completed her course of antibiotics. Blood cultures negative. (5) Paroxysmal atrial fibrillation: Plan: With PPM. Stable with current medical management. Not on AC due to history of hemorrhage/subdural hematoma (6) Rotator cuff tear arthropathy of right shoulder: Plan: Ortho consult and recommendations appreciated. She received a shoulder injection on January 18. Much improved on pain (7) Hypertension: Plan: Stable. Continue carvedilol and valsartan. (8) Aortic stenosis: Plan: Severe, similar on ECHO here to 2020 and 2021. No intervention necessary at this time. She may be a candidate for TAVR procedure at a later date (9) Diabetes mellitus: Plan: ADA diet. Sliding scale insulin coverage. Continue current medical management Plan DVT proph-Lovenox Dispo-medically stable for many days for discharge, awaiting placement. Finally is leaving for [facility] re[facility] tomorrow Admission and Anticipated Discharge Date Admission Date: January 17, 2023 Anticipated date of discharge: 02/02/23 Subjective Pt has no complaints, denies shoulder pain. When I told her she is leaving tomorrow for rehab, she said "Oh good!! I was about to tell you it's time for me to get the hell out of here!" Physical Exam Constitutional: WD/WN, vitals as above Respiratory: normal respiratory effort, lungs clear to auscultation no cough Cardiovascular: Rate/Rhythm: regular rate and regular rhythm Heart Sounds: + murmur (3/6 CHASTITY in RUSB) Extremities: no edema Gastrointestinal (Abdomen): normal bowel sounds, soft, nontender, no hepatosplenomegaly Psychiatric: Orientation: alert, oriented to person, oriented to place and cooperative Results & Data Results & Data Vital Signs (Past 12 Hours) Vital Signs Temp Pulse Resp BP Pulse Ox O2 Del Method 02/01/23 15:06 115/60 02/01/23 15:03 36.3 C L 63 14 92/49 L 95 Room Air 02/01/23 10:21 61 114/58 L 95 Room Air 02/01/23 09:15 Room Air 02/01/23 07:18 36.4 C L 66 16 176/74 H 95 Room Air PG Care Time/CCT Total # of Minutes Spent Total Time Spent with Patient: Total time spent is greater than 50% in coordination of care (as documented) at patient's floor/unit and/or counseling patient: Coding Level of Care Code 70480 SUB INP/OBS CARE 03/09MIN Diagnoses Fall W19.XXXA Encounter type: initial encounter Rib fracture S22.39XA Chronic combined systolic (congestive) and diastolic (congestive) heart failure I50.42 Urinary tract infection N39.0 Paroxysmal atrial fibrillation I48.0 Rotator cuff tear arthropathy of right shoulder M75.101; M12.811 Hypertension I10 Aortic stenosis I35.0 Type 2 diabetes mellitus without complication, with long-term current use of insulin E11.9; Z79.4 Diabetes mellitus type: type 2 Diabetes mellitus nursing home insulin use: with intermission coordinator use Diabetes mellitus complication status: without complication (1) Fall Encounter type: initial encounter Qualified Code(s): W19.XXXA - Unspecified fall, initial encounter (9) Diabetes mellitus Diabetes mellitus type: type 2 Diabetes mellitus nursing home insulin use: with intermission coordinator use Diabetes mellitus complication status: without complication Qualified Code(s): E11.9 - Type 2 diabetes mellitus without complications; Z79.4 - [facility] (current) use of insulin
[2023-02-01] MEDS: CALCITRIOL 0.25 MCG CAPSULE PO SCH (21:31)
[2023-02-01] MEDS: LOVASTATIN 20 MG TAB PO SCH (21:32)
[2023-02-02] MEDS: ARTIFICIAL TEARS OP SCH ×2 (00:13→09:25)
[2023-02-02] MEDS: ACETAMINOPHEN 500 MG TAB PO SCH (06:21)
[2023-02-02] MEDS: LIDOCAINE 5% 1 PATCH TD SCH (09:20)
[2023-02-02] MEDS: SERTRALINE HCL 50 MG TABLET PO SCH (09:24)
[2023-02-02] MEDS: METHENAMINE HIPPURATE 1 GM TAB PO SCH (09:24)
[2023-02-02] MEDS: VALSARTAN 80 MG TAB PO SCH (09:24)
[2023-02-02] MEDS: CALCIUM 600MG + VIT D 400 IU TAB PO SCH (09:25)
[2023-02-02] MEDS: ASPIRIN 81 MG ECTAB PO SCH (09:25)
[2023-02-02] MEDS: SENNA 8.6 MG TAB PO SCH (09:25)
[2023-02-02] MEDS: FUROSEMIDE 20 MG TAB PO SCH (09:25)
[2023-02-02] MEDS: GABAPENTIN 100 MG CAP PO SCH (09:25)
[2023-02-02] MEDS: carvediloL 12.5 MG TAB PO SCH (09:25)
[2023-02-02] MEDS: ENOXAPARIN INJ 30 MG/0.3 ML SYR SQ SCH (09:26)
[2023-02-02] MEDS: POLYETHYLENE (MIRALAX) 17 GM PACK PO SCH (09:27)
[2023-02-02] MEDS: NEOMYCIN/POLYMYXIN/DEXAMETHA OP SOLN 5 ML BTL OPR SCH (09:28)
[2023-02-02] MEDS: INSULIN ASPART PER UNIT CHARGE SC SCH (09:28)
[2023-02-02] MEDS: PANTOprazole 40 MG TAB PO SCH (10:27)
[2023-02-02] MEDS: DOCUSATE SODIUM/SENNA 50/8.6MG TAB PO SCH (10:27)
--- NOTE | 2023-02-02 10:44 | Discharge Summary ---
Discharge Summary Date of Service February 02, 2023 Notes For Next Care Provider Medication Changes From Visit Added scheduled tylenol, senna, and Miralax Admission HPI Per Admitting Provider Kassy Vasquez is an 87 year old female who presents to the ER from home via ALS due to rolling out of bed and landing on her right shoulder. She lives by herself and unclear how reliable of a history she gives as she cannot give me a good timeline of events. She thinks she hit her lifeline although her daughter was not called. She reportedly crawled downstairs to the phone. She reports hitting her head but no loss of consciousness. EMS noted a deformity of her right shoulder but may have gone back in on route to the hospital. This is on a background of multiple other falls this year. She denies any chest pain, shortness of breath or dizziness prior to falling and thinks she just loses her balance. She denies falling today and thinks she just accidently rolled out of bed and couldn't get herself back up. Her daughter is concerned about her current living situation even before this recent episode. She reports coughing illness for the last week. No fever, chills or shortness of breath. No worse on lying flat. No weight gain or leg swelling. Cough is non- productive. Not getting better or worse. She denies any urinary complaints and family feel her mental status is close to baseline however she does have a history of UTIs possibly increasing her risk of falls. She has a recent history of lens repair surgery to her right eye. Of note the patient is very hard of hearing but better with her left ear and raised voices. Principal Dx & Hospital Course #1 = Principal Diagnosis (1) Fall: Supportive care. Continue OT and PT. (2) Rib fracture: Right fifth posterior rib fracture suffered due to falling at home. Pain control measures with scheduled tylenol, has no further pain with this Right shoulder injected with steroids and pain now resolved (3) Chronic combined systolic (congestive) and diastolic (congestive) heart failure: Acute on chronic combined systolic and diastolic CHF present on admission. Associated with with severe aortic stenosis. Resolved with parenteral Lasix therapy. Now on oral Lasix. Cardiac echo reveals ejection fraction of 45 to 50% with severe aortic stenosis. Continue carvedilol and valsartan. cough resolved and was from CHF follow heart healthy diet (4) Urinary tract infection: E. coli isolated. She completed her course of antibiotics. Blood cultures negative. (5) Paroxysmal atrial fibrillation: With PPM. Stable with current medical management. Not on AC due to history of hemorrhage/subdural hematoma (6) Rotator cuff tear arthropathy of right shoulder: Ortho consult and recommendations appreciated. She received a shoulder injection on January 18. Much improved on pain (7) Hypertension: Stable. Continue carvedilol and valsartan. (8) Aortic stenosis: Severe, similar on ECHO here to 2020 and 2021. No intervention necessary at this time. She may be a candidate for TAVR procedure at a later date (9) Diabetes mellitus: ADA diet. Sliding scale insulin coverage was used but had minimal use-none further needed diet control only HgbA1C only 7.1% which is great for her age and comorbidities Plan DVT proph-Lovenox Dispo-medically stable for discharge, for [place] rehab today Discharge Exam Constitutional WD/WN, vitals as above Respiratory normal respiratory effort, lungs clear to auscultation no cough Cardiovascular Rate/Rhythm: regular rate and regular rhythm Heart Sounds: + murmur (3/6 CHASTITY in RUSB) Extremities: no edema Gastrointestinal (Abdomen) normal bowel sounds, soft, nontender, no hepatosplenomegaly Psychiatric Orientation: alert, oriented to person, oriented to place and cooperative Updated Medication List Medication Instructions Recorded Confirmed Type calcium carbonate 500 mg-vitamin 1 tab PO QAM #0 tabs 04/09/20 01/15/23 History D3 5 mcg (200 unit) tablet (Os-Emile 500 + D3) methenamine hippurate 1 gram tablet 1 g PO BID 08/25/20 01/15/23 History ascorbic acid (vitamin C) 500 mg 500 mg PO QAM 11/19/20 01/15/23 History tablet ipratropium 0.5 mg-albuterol 3 mg 3 ml inhalation Q4H PRN Wheezing 01/28/21 01/15/23 Rx (2.5 mg base)/3 mL nebulization #180 mL soln peg 400-propylene glycol 0.4 %-0.3 1 drp ophthalmic (eye) Q8H PRN Dry 04/01/21 01/15/23 History % eye gel drops (Systane Gel) Eyes ferrous sulfate 325 mg (65 mg 325 mg PO QAM #90 tabs 05/14/21 01/15/23 Rx iron) tablet lovastatin 40 mg tablet 40 mg PO PM #90 tabs 04/18/22 01/15/23 Rx valsartan 40 mg tablet 20 mg (1/2 x 40 mg) PO QAM #45 tabs 04/25/22 01/15/23 Rx acetaminophen 500 mg tablet 650 mg PO Q6H PRN Pain 06/01/22 01/15/23 History (Tylenol Extra Strength) carbamide peroxide 6.5 % ear drops 5 drp otic (ear) Q12H PRN NEEDED 06/01/22 01/15/23 History (Debrox) calcitriol 0.25 mcg capsule 0.25 mcg PO 3XWK #36 caps 07/01/22 01/15/23 Rx carvedilol 12.5 mg tablet 12.5 mg PO BID #180 tabs 07/07/22 01/15/23 Rx sertraline 50 mg tablet 50 mg PO QAM #90 tabs 07/18/22 01/15/23 Rx aspirin 81 mg tablet,delayed 81 mg PO DAILY 09/27/22 01/15/23 History release (Adult Low Dose Aspirin) lancets 33 gauge (Overdoguch iiyuma #100 ea 11/01/22 Rx Plus Lancet) lancing device with lancets kit #1 ea 11/01/22 Rx (Eloquii Delica Plus Lancing Device kit) pantoprazole 40 mg tablet,delayed 40 mg PO BID #180 tabs 11/04/22 01/15/23 Rx release blood sugar diagnostic (OneTouch #100 ea 12/19/22 Rx Verio test strips) furosemide 20 mg tablet 20 mg PO QAM 01/15/23 01/15/23 History gabapentin 100 mg capsule See Rx Instructions .Route .COMPLEX 01/15/23 01/15/23 History [id number] 3.5 1 drp OPR QID 01/15/23 01/15/23 History mg/mL-10,000 unit/mL-0.1% eye drops acetaminophen 500 mg tablet 1,000 mg (2 x 500 mg) PO Q8 #180 02/02/23 Rx (Tylenol Extra Strength) tabs polyethylene glycol 3350 17 gram 17 g PO DAILY #30 ea 02/02/23 Rx oral powder packet (Miralax) sennosides 8.6 mg-docusate sodium 1 tab PO QAM #30 tabs 02/02/23 Rx 50 mg tablet (Senokot-S) Hospital Stay Data Consultations 01/15/23 13:52 ED Decision to Admit Stat 01/16/23 15:35 Consult Orthopedic Surgery Routine [facility] Program Referral Routine Diagnostic Imagining Performed 01/15/23 10:45 CT cervical spine wo con Stat CT head/brain wo con Stat CT thoracic spine wo con Stat Pending Results Patient Have Any Pending Studies at Discharge: No Discharge Instructions Given to Patient (Per Discharging Provider) Please continue PT/OT for strengthening. Call your Primary Care doctor if any of the following symptoms or problems start or get worse: * Shortness of breath or difficulty breathing * Wake up at night short of breath * Chest pain * Cough * Swelling of your hands, feet, or legs * More fatigued or tired with your normal activity * Palpitations - sudden fast heart beats WEIGHT * Weigh yourself every morning after using the bathroom. * Use the same scale. * Wear the same amount of clothing. * Write your weight down on a chart. * Call your Primary Care doctor if you gain more than 2-3 pounds in 1-2 days. MEDICATIONS * Use this discharge instruction sheet for medication instructions. * Take your medications at the time your doctor ordered. * Do not skip a dose of your medicines. * If you miss a dose of medicine, take it as soon as possible, but DO NOT DOUBLE A DOSE. * Read your medicine information when you get home. * Know all of the side effects of your medicine. If in doubt, ask your pharmacist * Call your Primary Care doctor's office if you have any side effects. * Be sure all of your doctors know what medicine and herbs you take (including cold, flu, and herbal medicine). Take the following with you to your follow-up doctor appointments: * Weight Chart * Medication List * List of questions Do not drink excessive alcohol, beer or wine. Total Time Total Time Spent Total Time Spent (In Minutes): 35 min Coding Level of Care Code 68391 INP/OBS DISCH >30 MIN Diagnoses Fall W19.XXXA Encounter type: initial encounter Rib fracture S22.39XA Chronic combined systolic (congestive) and diastolic (congestive) heart failure I50.42 Urinary tract infection N39.0 Paroxysmal atrial fibrillation I48.0 Rotator cuff tear arthropathy of right shoulder M75.101; M12.811 Hypertension I10 Aortic stenosis I35.0 Type 2 diabetes mellitus without complication, with long-term current use of insulin E11.9; Z79.4 Diabetes mellitus complication status: without complication 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
== END 2023-02-02 11:19 | DRG 291 ==
LOC: 3E 10:21 → ED 10:21 → SUATTDRO 14:42 → 3E 16:26 → 2W 01-16 15:30 → SUATTDRO 01-17 12:02 → 3W 01-24 22:05